=== PATIENT | male | born 1955 | race Caucasian/White ===

== ENCOUNTER 2016-03-11 21:56 | Inpatient (IN) | payer OTHER, MEDICARE ==
[~2016-03-11] VITALS: Ht 170.2 cm; Wt 75.0 kg
[~2016-03-11 21:56] MED LIST: LISI-357 PO; SERT100 PO
[2016-03-11 22:02] VITALS: BP 169/94; PULSE 104; RESP 22; TEMP 98.9; O2SAT 91
[2016-03-11] MEDS ORDERED: ASPIRIN 81 MG CHEW TAB PO ONE (22:15)
[2016-03-11] MEDS ORDERED: SODIUM CHLORIDE 0.9% FLUSH 5 ML FLUSH IVF PRN (22:15)
[2016-03-11] MEDS ORDERED: LISI-519 PO (22:16)
[2016-03-11] MEDS ORDERED: SERT-132 PO (22:16)
[2016-03-11] MEDS ORDERED: LOVA10TA PO (22:16)
[2016-03-11] MEDS ORDERED: VITA100021 SL (22:16)
[2016-03-11] MEDS ORDERED: ASPI81TA11 PO (22:16)
[2016-03-11] MEDS ORDERED: OMEP40CA2 PO (22:16)
[2016-03-11] MEDS ORDERED: TRAZ50TA12 PO (22:16)
--- NOTE | 2016-03-11 22:34 | PD ---
HPI Chief Complaint: Respiratory Symptoms Time Seen by Provider: 22:10 Travel History International Travel<30 days: No Contact w/Intl Traveler<30days: No Traveled to known affect area: No History of Present Illness HPI 60-year-old male with blindness, here for evaluation of cough, shortness of breath, chest discomfort, headache, generalized malaise. Symptoms of been going on for last 4 days. He states he has had persistent hiccups for the last 4 days as well as substernal chest pressure. He denies history of cardiac disease. Substernal chest pressure has been constant, no modifying factors. He has had a cough and is slightly short of breath. No history of DVT or PE. Today he has had several episodes of diarrhea. No abdominal pain or vomiting. PFSH Past Medical History Anxiety: Yes Depression: Yes Diminished Hearing: No GERD: Yes Hypertension: Yes Past Surgical History Cholecystectomy: Yes Social History Alcohol Use: Yes (EVERYOTHER DAY) Tobacco Use: Yes (02/25 PPD) Substance Use: No Allergies-Medications (Allergen,Severity, Reaction): Coded Allergies: Codeine (Verified Allergy, Severe, PASSES OUT, 03/11/16) Reported Meds & Prescriptions Reported Meds & Active Scripts Active Reported Vitamin B-12 (Cyanocobalamin) 1,000 Mcg Subl 1,000 Mcg SL DAILY Trazodone (Trazodone HCl) 50 Mg Tab 50 Mg PO BID Aspirin EC (Aspirin) 81 Mg Tabdr 81 Mg PO DAILY Omeprazole 40 Mg Cap 40 Mg PO DAILY Sertraline (Sertraline HCl) 50 Mg Tab 50 Mg PO DAILY Lisinopril 5 Mg Tab 5 Mg PO DAILY Lovastatin 10 Mg Tab 10 Mg PO DAILY Review of Systems Except as stated in HPI: all other systems reviewed are Neg Physical Exam Narrative GENERAL: Well-developed, well-nourished, comfortable, no acute distress. SKIN: Warm and dry. No rash. HEAD: Atraumatic. Normocephalic. EYES: No scleral icterus. No injection or drainage. ENT: Mucous membranes pink and moist. NECK: Trachea midline. No JVD. CARDIOVASCULAR: Tachycardic, rate 110, regular. RESPIRATORY: No accessory muscle use. Clear to auscultation. Breath sounds equal bilaterally. GASTROINTESTINAL: Abdomen soft, non-tender, nondistended. MUSCULOSKELETAL: No obvious deformities. No clubbing. No cyanosis. No edema. NEUROLOGICAL: Awake and alert. No obvious cranial nerve deficits. Motor grossly within normal limits. Normal speech. PSYCHIATRIC: Appropriate mood and affect; insight and judgment normal. Data Data Last Documented VS Vital Signs Date Time Temp Pulse Resp B/P Pulse Ox O2 Delivery O2 Flow Rate FiO2 03/11/16 23:58 104 20 144/83 96 Room Air 03/11/16 22:02 98.9 Orders Complete Blood Count With Diff (03/11/16 22:14) Comprehensive Metabolic Panel (03/11/16 22:14) B-Type Natriuretic Peptide (03/11/16 22:14) Act Partial Throm Time (Ptt) (03/11/16 22:14) Prothrombin Time / Inr (Pt) (03/11/16 22:14) Ckmb (Isoenzyme) Profile (03/11/16 22:14) Troponin I (03/11/16 22:14) Influenzae A/B Antigen (03/11/16 22:14) Blood Culture (03/11/16 22:14) Iv Access Insert/Monitor (03/11/16 22:14) Electrocardiogram (03/11/16 22:14) Ecg Monitoring (03/11/16 22:14) Oximetry (03/11/16 22:14) Oxygen Administration (03/11/16 22:14) Chest, Single Ap (03/11/16 22:14) Ct Pulmonary Angiogram (03/11/16 22:14) Sodium Chloride 0.9% Flush (Ns Flush) (03/11/16 22:15) Aspirin Chew (Aspirin Chew) (03/11/16 22:15) Chlorpromazine Inj (Thorazine Inj) (03/11/16 22:15) Lactic Acid (03/11/16 22:14) Iohexol 350 Inj (Omnipaque 350 Inj) (03/11/16 23:52) Sodium Chlor 0.9% 1000 Ml Inj (Ns 1000 M (03/12/16 00:15) Place In Observation (03/12/16 ) Vital Signs (Adult) Q4H (03/12/16 00:30) Activity Oob With Assistance (03/12/16 00:30) ^ Biopsychologist / Telemetry .CONTINUOUS (03/12/16 00:30) Diet Heart Healthy (1/17/17 Breakfast) Sodium Chloride 0.9% Flush (Ns Flush) (03/12/16 00:30) Sodium Chloride 0.9% Flush (Ns Flush) (03/12/16 09:00) Creatine Kinase (Cpk) (03/12/16 04:20) Creatine Kinase (Cpk) (03/12/16 10:20) Troponin I (03/12/16 04:20) Troponin I (03/12/16 10:20) Electrocardiogram (03/12/16 04:20) Electrocardiogram (03/12/16 10:20) Resp Oxygen Gadiel C Titrat 1-4 L (03/12/16 ) Pt Request For Service (03/12/16 00:30) Enoxaparin Inj (Lovenox Inj) (03/12/16 00:30) Naloxone Inj (Narcan Inj) (03/12/16 00:30) Enoxaparin Inj (Lovenox Inj) (03/12/16 09:00) Labs Laboratory Tests Test 03/11/16 22:20 White Blood Count 7.7 TH/MM3 Red Blood Count 4.82 MIL/MM3 Hemoglobin 16.4 GM/DL Hematocrit 46.6 % Mean Corpuscular Volume 96.8 FL Mean Corpuscular Hemoglobin 34.0 PG Mean Corpuscular Hemoglobin 35.1 % Concent Red Cell Distribution Width 13.7 % Platelet Count 122 TH/MM3 Mean Platelet Volume 9.4 FL Neutrophils (%) (Auto) 70.2 % Lymphocytes (%) (Auto) 12.1 % Monocytes (%) (Auto) 16.8 % Eosinophils (%) (Auto) 0.4 % Basophils (%) (Auto) 0.5 % Neutrophils # (Auto) 5.4 TH/MM3 Lymphocytes # (Auto) 0.9 TH/MM3 Monocytes # (Auto) 1.3 TH/MM3 Eosinophils # (Auto) 0.0 TH/MM3 Basophils # (Auto) 0.0 TH/MM3 CBC Comment DIFF FINAL Differential Comment Prothrombin Time 10.1 SEC Prothromb Time International 0.9 RATIO Ratio Activated Partial 30.1 SEC Thromboplast Time Sodium Level 131 MEQ/L Potassium Level 3.5 MEQ/L Chloride Level 90 MEQ/L Carbon Dioxide Level 32.1 MEQ/L Anion Gap 9 MEQ/L Blood Urea Nitrogen 12 MG/DL Creatinine 0.74 MG/DL Estimat Glomerular Filtration 107 ML/MIN Rate Random Glucose 94 MG/DL Lactic Acid Level 2.0 mmol/L Calcium Level 9.1 MG/DL Total Bilirubin 0.8 MG/DL Aspartate Amino Transf 95 U/L (AST/SGOT) Alanine Aminotransferase 58 U/L (ALT/SGPT) Alkaline Phosphatase 73 U/L Total Creatine Kinase 74 U/L Troponin I LESS THAN 0.02 NG/ML B-Type Natriuretic Peptide 9 PG/ML Total Protein 7.7 GM/DL Albumin 2.9 GM/DL [facility] Medical Decision Making Medical Screen Exam Complete: Yes Emergency Medical Condition: Yes Interpretation(s) EKG: Sinus, rate 99, normal axis, normal intervals, septal Q waves, no ischemic abnormality. Differential Diagnosis ACS, pneumothorax, pericarditis, PE, pneumonia, influenza, dehydration, viral illness Narrative Course Initial vital signs show heart rate 104, blood pressure 169/94, pulse ox 91% on room air, oral temp of 98.9F. CBC is unremarkable. CMP is remarkable for sodium 131, chloride 90, bicarbonate 32, otherwise unremarkable. Neck enzymes are negative. BNP is 9. Lactic acid is 2. Chest x-ray shows no acute disease. CT pulmonary angiogram: CONCLUSION: Diffuse symmetric fine interstitial lung disease of undetermined chronicity. Mild declan prominence. No evidence of pulmonary embolism. Hiccups initially resolved after the patient was given Thorazine, however returned. Patient was made aware of all findings. He is still complaining of some mild substernal chest discomfort. Even though it is reported that the patient had an O2 saturation of 96% on room air, this was actually on 2 L nasal cannula. His O2 saturation on room air is between 88 and 90%. He was made aware of all findings and states that he believes he was exposed to asbestos in the past and that is why his CT finding shows interstitial lung disease. 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 The patient will be admitted for further treatment and evaluation of chest pain. Case discussed with hospitalist Dr. Morales who will admit the patient to her service. Diagnosis Primary Impression: Chest pain Qualified Code: R07.9 - Chest pain, unspecified type Additional Impressions: Hypoxia Intractable singultus Admitting Information Admitting Physician Requests: Observation Rashad Vee MD Mar 11, 2016 22:34
--- NOTE | 2016-03-11 22:43 | RADRPT ---
EXAM DATE/TIME: 03/11/2016 22:34 [facility] COMPARISON: No previous studies available for comparison. INDICATIONS : Short of breath. MEDICAL HISTORY : None. SURGICAL HISTORY : None. ENCOUNTER: Initial ACUITY: 2 days PAIN SCORE: 0/10 LOCATION: Bilateral chest FINDINGS: A single view of the chest demonstrates the lungs to be symmetrically aerated without evidence of mas s, infiltrate or effusion. The cardiomediastinal contours are unremarkable. Osseous structures are intact. CONCLUSION: No acute cardiopulmonary disease demonstrated. Justo Morales MD on March 11, 2016 at 22:41 Board Certified Radiologist. This report was verified electronically.
[2016-03-11 22:53] VITALS: O2SAT 96
[2016-03-11 22:57] LABS: AUTOMATED NEUTROPHIL # 5.4 TH/MM3 (1.8-7.7); BASOPHIL % 0.5 % (0.0-2.0); EOSINOPHIL % 0.4 % (0.0-4.0); HEMATOCRIT 46.6 % (39.0-51.0); HEMO FLAGS DIFF FINAL; LYMPH % 12.1 % (9.0-44.0); LYMPHOCYTE # 0.9 TH/MM3 (1.0-4.8); MEAN CELL VOLUME 96.8 FL (80.0-100.0); MEAN CORPUSCULAR HGB CONC 35.1 % (32.0-36.0); MONO % 16.8 % (0.0-8.0); NEUT % 70.2 % (16.0-70.0); PLATELET COUNT 122 TH/MM3 (150-450); RED BLOOD COUNT 4.82 MIL/MM3 (4.50-5.90); RED CELL DISTRIBUTION WIDTH 13.7 % (11.6-17.2); WHITE BLOOD COUNT 7.7 TH/MM3 (4.0-11.0)
[2016-03-11 23:13] LABS: APTT (PATIENT) 30.1 SEC (24.3-30.1); INTERNATIONAL NORMALIZED RATIO 0.9 RATIO; PROTHROMBIN TIME - PATIENT 10.1 SEC (9.8-11.6)
[2016-03-11 23:18] LABS: ALT (GPT) 58 U/L (12-78); ANION GAP 9 MEQ/L (5-15); AST (GOT) 95 U/L (15-37); BICARBONATE 32.1 MEQ/L (21.0-32.0); BLOOD UREA NITROGEN 12 MG/DL (7-18); CHLORIDE 90 MEQ/L (98-107); GLOMERULAR FILTRATION RATE 107 ML/MIN (>89); POTASSIUM 3.5 MEQ/L (3.5-5.1); SODIUM (NA) 131 MEQ/L (136-145)
[2016-03-11 23:22] LABS: ALKALINE PHOSPHATASE 73 U/L (45-117); TOTAL BILIRUBIN ADULT 0.8 MG/DL (0.2-1.0)
[2016-03-11 23:24] LABS: CREATINE KINASE 74 U/L (39-308)
[2016-03-11] MEDS ORDERED: IOHEXOL 350 MG/ML 10 ML VIAL (for RAD DIAG) IV ONE (23:52)
[2016-03-11 23:58] VITALS: BP 144/83; PULSE 104; RESP 20; O2SAT 94; O2SAT 96
[2016-03-12] VITALS (10 sets, daily range): BP systolic 128–173; BP diastolic 77–97; PULSE 65–117; RESP 16–22; TEMP 97.2–99.4; O2SAT 92–96
--- NOTE | 2016-03-12 00:04 | RADRPT ---
EXAM DATE/TIME: 03/11/2016 23:41 [facility] COMPARISON: CHEST SINGLE AP, March 11, 2016, 22:34. INDICATIONS : Short of breath, hiccups and fatigue. IV CONTRAST: 66 cc Omnipaque 350 (iohexol) IV RADIATION DOSE: 12.83 CTDIvol (mGy) MEDICAL HISTORY : Hypertension. Gastroesophageal reflux disease. SURGICAL HISTORY : None. ENCOUNTER: Initial ACUITY: 1 day PAIN SCALE: 1/10 LOCATION: chest TECHNIQUE: Volumetric scanning of the chest was performed using a pulmonary embolism protocol MIP images were re constructed. Using automated exposure control and adjustment of the mA and/or kV according to patien t size, radiation dose was kept as low as reasonably achievable to obtain optimal diagnostic quality images. FINDINGS: PULMONARY ARTERIES: No filling defects are seen in the pulmonary arteries through the segmental level. LUNGS: There is subtle fairly widespread reticular nodular interstitial infiltrate. No evidence of alveolar consolidation in no suspicious nodules or masses. PLEURAE: There is no pleural thickening or pleural effusion. MEDIASTINUM: There is mild prominence of bilateral hilar lymph nodes and small central mediastinal nodes are visua lized. Coronary artery calcifications are present. MUSCULOSKELETAL: Within normal limits for patient age. MISCELLANEOUS: Prominent fatty infiltration of the liver. Smaller defect probably cysts arising from the apex of the right kidney. CONCLUSION: Diffuse symmetric fine interstitial lung disease of undetermined chronicity. Mild declan prominence. No evidence of pulmonary embolism. Justo William MD on March 11, 2016 at 23:58 Board Certified Radiologist. This report was verified electronically.
[2016-03-12] MEDS ORDERED: SODIUM CHLOR 0.9% 1000 ML INJ 1,000 ML IV ONE (00:15)
[2016-03-12] MEDS ORDERED: NALOXONE HCL 0.4 MG/ML AMP IV PRN (00:30)
[2016-03-12] MEDS ORDERED: ENOXAPARIN SODIUM 40 MG/0.4 ML SYRINGE SQ SCH ×2 (00:30→09:00)
[2016-03-12] MEDS ORDERED: SODIUM CHLORIDE 0.9% FLUSH 5 ML FLUSH FLUSH PRN (00:30)
--- NOTE | 2016-03-12 04:20 | HHI.HP ---
[facility] Non-Staff Admission Diagnosis chest pain, hypoxia, shortest of breath, singultus Diagnoses: Chief Complaint: Nausea, vomiting, fatigue, headache cups, chest pain Travel History International Travel<30 Days: No Contact w/Intl Traveler <30 Da: No Traveled to Known Affected Are: No History of Present Illness History from patient, ER physician communication, and review of medical records. Patient reported that on February 28, 2016, he did have deep cleaning of his teeth at the dentist office. He states that the day after this deep cleaning, he started having severe nausea and started vomiting every time he drinks or eats. He states he almost up to drink by the bathroom so that he can use the toilet bowl to vomit. Reports that his vomitus is yellowish in color. No blood. He also denies any blood in his stool. Denies diarrhea. Denies any abdominal pain. However reports that they have been so fatigued and worn out since that day. He just doesn't know why. Patient usually does not get sick easily. He states he is usually quite active. However this fatigue and weakness is wearing him down and he decided to come to hospital. He also reports of the past 2 days, he was starting to have these hiccups These hiccups are usually followed by this chest pains which is kind of poorly described. He states he almost had to do a lot of hiccups in order to burp. He isn't sure what starts first. Patient denies any prior history of valvular heart disease. Review of Systems Constitutional: COMPLAINS OF: Fatigue, DENIES: Diaphoretic episodes, Fever, Weight gain, Weight loss, Dizziness, Change in appetite Eyes: COMPLAINS OF: Vision loss (legally blind) Respiratory: COMPLAINS OF: Cough, DENIES: Apneas, Snoring, Wheezing, Hemoptysis, Sputum production, Shortness of breath Cardiovascular: COMPLAINS OF: Chest pain, Dyspnea on Exertion, Orthopnea, DENIES: Palpitations, Syncope, PND, Lower Extremity Edema Gastrointestinal: COMPLAINS OF: Nausea, Vomiting, DENIES: Abdominal pain, Black stools, Bloody stools, Constipation, Diarrhea, Difficulty Swallowing, Anorexia Genitourinary: DENIES: Urinary frequency, Urinary incontinence, Urgency, Hematuria, Dysuria, Nocturia Neurologic: DENIES: Abnormal gait, Headache, Localized weakness, Paresthesias, Seizures, Speech Problems, Tremor, Poor Balance Psychiatric: COMPLAINS OF: Anxiety, Depression Past Family Social History Past Medical History Hypertension Insomnia Anxiety COPD Past Surgical History Left wrist surgery Allergies: Coded Allergies: Codeine (Verified Allergy, Severe, PASSES OUT, 03/11/16) Family History Denies any family history of any medical conditions. Social History Smokes about half a pack a day. denies any alcohol abuse or drug abuse. However states that he does drink socially every few days or so. 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 Physical Exam Vital Signs Vital Signs Date Time Temp Pulse Resp B/P Pulse Ox O2 Delivery O2 Flow Rate FiO2 03/12/16 01:00 96 Nasal Cannula 2.00 03/12/16 01:00 102 16 141/77 94 Nasal Cannula 2 03/11/16 23:58 104 20 144/83 96 Nasal Cannula 2 03/11/16 22:53 96 Room Air 03/11/16 22:53 96 Room Air 03/11/16 22:08 103 22 92 Room Air 03/11/16 22:02 98.9 104 22 169/94 91 Physical Exam GENERAL: This is a well-nourished, well-developed patient, in no apparent distress. Does look quite concerned and fatigue from acute illness SKIN: No rashes, ecchymoses or lesions. Cool and dry. HEAD: Atraumatic. Normocephalic. No temporal or scalp tenderness. EYES: No scleral icterus. No injection or drainage. ENT: Nose without bleeding, purulent drainage or septal hematoma. Airway patent. NECK: Trachea midline. No JVD. Supple, nontender, no meningeal signs. CARDIOVASCULAR: Regular rate and rhythm without murmurs, gallops, or rubs. RESPIRATORY: Clear to auscultation. Breath sounds equal bilaterally. No wheezes , rales, or rhonchi. GASTROINTESTINAL: Abdomen soft, non-tender, nondistendedes. No guarding. MUSCULOSKELETAL: Extremities without clubbing, cyanosis, or edema. No calf tenderness. NEUROLOGICAL: Awake and alert. Motor and sensory grossly within normal limits. Normal speech. Laboratory Laboratory Tests Test 03/11/16 22:20 White Blood Count 7.7 Red Blood Count 4.82 Hemoglobin 16.4 Hematocrit 46.6 Mean Corpuscular Volume 96.8 Mean Corpuscular Hemoglobin 34.0 Mean Corpuscular Hemoglobin 35.1 Concent Red Cell Distribution Width 13.7 Platelet Count 122 Mean Platelet Volume 9.4 Neutrophils (%) (Auto) 70.2 Lymphocytes (%) (Auto) 12.1 Monocytes (%) (Auto) 16.8 Eosinophils (%) (Auto) 0.4 Basophils (%) (Auto) 0.5 Neutrophils # (Auto) 5.4 Lymphocytes # (Auto) 0.9 Monocytes # (Auto) 1.3 Eosinophils # (Auto) 0.0 Basophils # (Auto) 0.0 CBC Comment DIFF FINAL Differential Comment Prothrombin Time 10.1 Prothromb Time International 0.9 Ratio Activated Partial 30.1 Thromboplast Time Sodium Level 131 Potassium Level 3.5 Chloride Level 90 Carbon Dioxide Level 32.1 Anion Gap 9 Blood Urea Nitrogen 12 Creatinine 0.74 Estimat Glomerular Filtration 107 Rate Random Glucose 94 Lactic Acid Level 2.0 Calcium Level 9.1 Total Bilirubin 0.8 Aspartate Amino Transf 95 (AST/SGOT) Alanine Aminotransferase 58 (ALT/SGPT) Alkaline Phosphatase 73 Total Creatine Kinase 74 Troponin I LESS THAN 0.02 B-Type Natriuretic Peptide 9 Total Protein 7.7 Albumin 2.9 Date/Time Procedure Status Source Growth 03/11/16 22:26 Influenza Types A,B Antigen ([facility]) - Final Complete Nasal Washing NEGATIVE FOR FLU A AND B ANTIGEN.... 03/11/16 22:25 Aerobic Blood Culture Received Blood Peripheral Pending 03/11/16 22:25 Anaerobic Blood Culture Received Blood Peripheral Pending Result Diagram: 03/11/16221903/11/162219 Imaging Last 48 hours Impressions Chest X-Ray 03/11/162213 Signed Impressions: Service Date/Time: Friday, March 11, 2016 22:34 - CONCLUSION: No acute cardiopulmonary disease demonstrated. Justo Morales MD CT Angiography 03/11/162213 Signed Impressions: Service Date/Time: Friday, March 11, 2016 23:41 - CONCLUSION: Diffuse symmetric fine interstitial lung disease of undetermined chronicity. Mild declan prominence. No evidence of pulmonary embolism. Justo William MD Assessment and Plan Problem List: (1) Hypoxia ICD Code: R09.02 Status: Acute (2) Chest pain ICD Code: R07.9 Status: Acute (3) Nausea & vomiting ICD Code: R11.2 Status: Acute (4) Fatigue ICD Code: R53.83 Status: Acute Assessment and Plan Impression: Nausea/vomiting/fatigue/chest pain/hiccupsetiology unclear. However given that all this started post dental procedure, we'll need to rule out endocarditis. 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 CT chest revealing pulmonary fibrosis. Thrombocytopenia Plan: We'll follow the patient's blood culture results. We'll follow patient clinically. Echocardiogram to rule out vegetations. Monitor for fevers. We'll obtain serial cardiac enzymes and EKGs to rule out ACS. Symptomatic treatment for hiccups. Patient was not intubated for dental procedure. It was mainly deep cleaning. CT chest did not reveal any diaphragmatic paralysis. Oxygen supplementation. We'll follow platelet counts closely. Resume home medications. DVT prophylaxiswith Lovenox. GI prophylaxis on pantoprazole. Discussed Condition With Patient, ER physician, patient's nurse Physician Certification 2 Midnight Certification Type: Admission for Inpatient Services Order for Inpatient Services The services are ordered in accordance with Medicare regulations or non- Medicare payer requirements, as applicable. In the case of services not specified as inpatient-only, they are appropriately provided as inpatient services in accordance with the 2-midnight benchmark. Estimated LOS (days): 2 days is the estimated time the patient will need to remain in the hospital, assuming treatment plan goals are met and no additional complications. Post-Hospital Plan: Home Problem Qualifiers (1) Chest pain: Qualified Code: R07.9 - Chest pain, unspecified type Ghislaine Morales MD Mar 12, 2016 04:20
[2016-03-12 05:18] LABS: CREATINE KINASE 312 U/L (39-308)
[2016-03-12 05:36] LABS: CKMB LESS THAN 0.5 NG/ML (0.5-3.6)
[2016-03-12] MEDS ORDERED: LISINOPRIL 5 MG TAB PO SCH (09:00)
[2016-03-12] MEDS: SERTRALINE HCL 50 MG TAB PO SCH (09:12)
[2016-03-12] MEDS: ASPIRIN EC 81 MG TABEC PO SCH (09:12)
[2016-03-12] MEDS: PANTOPRAZOLE SOD 40 MG DELAYED RELEASE TAB PO SCH (09:12)
[2016-03-12] MEDS: PRAVASTATIN SOD 10 MG TAB PO SCH (09:13)
[2016-03-12] MEDS: SODIUM CHLORIDE 0.9% FLUSH 5 ML FLUSH FLUSH SCH ×2 (09:13→21:29)
[2016-03-12] MEDS: traZODone HCL 50 MG TAB PO SCH ×2 (09:13→21:30)
[2016-03-12] MEDS ORDERED: methylPREDNISolone SOD SUCC 125 MG/2 ML VIAL IV PUSH ONE (10:15)
[2016-03-12 10:57] LABS: BICARBONATE 29.9 MEQ/L (21.0-32.0); POTASSIUM 3.6 MEQ/L (3.5-5.1)
[2016-03-12 11:06] LABS: CREATINE KINASE 482 U/L (39-308)
[2016-03-12 11:18] LABS: CKMB 0.5 NG/ML (0.5-3.6)
--- NOTE | 2016-03-12 11:18 | HHI.PR ---
Subjective Remarks Follow-up for shortness of breath. The patient reports decreased energy. He states it is been feeling poorly for the past 2 weeks. He states that the day after going to the dentist 2 weeks ago he developed shortness of breath which is been persistent for 2 weeks. He's also been having nausea and vomiting for about 2 weeks, that improved to about 2 days ago. He's been having loose stools for the past 2 months. He denies any chest pain currently. He states that with the vomiting he was having hiccups and the discomfort has chest was always secondary to the hiccups. He describes his chest pain has a lower sternal soreness. He's been having some pain in his throat, but denies any swallowing difficulties. He does feel a little dizzy. He does have 2 or 3 beers 2 or 3 times a week. He states that he has smoked "forever". Objective Vitals Vital Signs Date Time Temp Pulse Resp B/P Pulse Ox O2 Delivery O2 Flow Rate FiO2 03/12/16 09:30 111 03/12/16 08:47 99.4 117 22 150/97 92 03/12/16 05:09 116 03/12/16 05:05 97.8 112 20 166/93 94 03/12/16 01:00 96 Nasal Cannula 2.00 03/12/16 01:00 102 16 141/77 94 Nasal Cannula 2 03/11/16 23:58 104 20 144/83 96 Nasal Cannula 2 03/11/16 22:53 96 Room Air 03/11/16 22:53 96 Room Air 03/11/16 22:08 103 22 92 Room Air 03/11/16 22:02 98.9 104 22 169/94 91 Result Diagram: 03/11/16 22203/12/16 1030 Imaging Last Impressions Chest X-Ray 03/11/162213 Signed Impressions: Service Date/Time: Friday, March 11, 2016 22:34 - CONCLUSION: No acute cardiopulmonary disease demonstrated. Justo Morales MD CT Angiography 03/11/162213 Signed Impressions: Service Date/Time: Friday, March 11, 2016 23:41 - CONCLUSION: Diffuse symmetric fine interstitial lung disease of undetermined chronicity. Mild declan prominence. No evidence of pulmonary embolism. Justo William MD Objective Remarks GENERAL: Well-developed well-nourished. In no acute distress. SKIN: Warm and dry. No lesions noted. HEENT: Normocephalic. Pupils equal and round. Mucous membranes pink and moist. CARDIOVASCULAR: Regular rate and rhythm. No murmur appreciated. RESPIRATORY: No accessory muscle use. Clear to auscultation. Breath sounds equal bilaterally. GASTROINTESTINAL: Abdomen soft, non-tender, nondistended. Bowel sounds x4. MUSCULOSKELETAL: No obvious deformities. No clubbing or cyanosis. No edema. NEUROLOGICAL: Awake and alert. No focal neurological deficits. Moves upper and lower extremities spontaneously. Normal speech. PSYCHIATRIC: Appropriate mood and affect; insight and judgment normal. A/P Problem List: (1) Hypoxia ICD Code: R09.02 Status: Acute (2) Chest pain ICD Code: R07.9 Status: Resolved (3) Nausea & vomiting ICD Code: R11.2 Status: Resolved (4) Fatigue ICD Code: R53.83 Status: Resolved Assessment and Plan 60-year-old male with past medical history of HTN, depression, anxiety, GERD who presented with shortness of breath Shortness of breath with hypoxia: Pulmonary angiogram negative for PE, but showed possible interstitial lung disease; question of pneumonitis secondary to aspiration from vomiting. Afebrile with no leukocytosis. IV steroids. DuoNeb scheduled. Pulmonology consulted. Echocardiogram ordered. Atypical chest pain: Related to hiccups. ACS ruled out per protocol with troponin negative 3 and EKG with no acute changes, nonspecific ST changes in V2 and V3. Patient reports significant nose bleeding on aspirin in the past. Continue statin. Nausea/vomiting/diarrhea: Over the past 2 weeks, resolved recently. Checked lipase, within normal limits. Supportive care. Continue PPI. Hypertension: Chronic, stable. Continue lisinopril. DVT prophylaxis: SCDs. DC Lovenox with history of severe nose bleeds. Written by Edmar Bowie, acting as scribe for Dr. Marin on 03/12/16 at 11:18. Discharge Planning Disposition pending clinical course. Attending Statement The documentation accurately reflects the work performed [id number] by me, Dr. Marin on 03/12/16 at 11:18. Problem Qualifiers (1) Chest pain: Qualified Code: R07.9 - Chest pain, unspecified type Edmar Bowie Mar 12, 2016 11:18 Carlos Marin MD Mar 21, 2016 07:32
--- NOTE | 2016-03-12 14:00 | EKG ---
Date Performed: 03/11/2016 Time Performed: 22:38:13 PTAGE: 60 years EKG: Sinus rhythm POSSIBLE SEPTAL MYOCARDIAL INFARCTION, AGE UNDETERMINED CANNOT EXCLUDE ACUTE ABNORMAL ECG NO PREVIOUS TRACING DOCTOR: Boni Stein Interpretating Date/Time 03/12/2016 13:58:52
--- NOTE | 2016-03-12 14:00 | EKG ---
Date Performed: 03/12/2016 Time Performed: 05:11:58 PTAGE: 60 years EKG: SINUS TACHYCARDIA SEPTAL MYOCARDIAL INFARCTION Compared to previous tracing, the anterosept al ST elevation not as prominant. Clinical correlation recommended. ABNORMAL ECG PREVIOUS TRACING : 03/11/2016 22.38 DOCTOR: Boni Stein Interpretating Date/Time 03/12/2016 13:59:25
[2016-03-12] MEDS: methylPREDNISolone SOD SUCC 40 MG/1 ML VIAL IV PUSH SCH ×2 (14:12→21:30)
[2016-03-12] MEDS: RESP: ALBUTEROL 2.5 MG/IPRATROPIUM 0.5 MG NEB (SCH) NEB ×2 (16:04→20:00)
--- NOTE | 2016-03-12 19:02 | EC ---
Study Study Date:03/12/2016 STUDY CONCLUSIONS SUMMARY LEFT VENTRICLE: The cavity size was normal. Wall thickness was normal. Systolic function was normal. The estimated ejection fraction was in the range of 50% to 55%. Wall motion was normal; there were no regional wall motion abnormalities. Recommendations: Transesophageal echocardiography should be performed in order to exclude vegetation. If LV function is below 40, please consider prescribing an ACEI or ARB or document rationale for non-use. PROCEDURE DATA STUDY STATUS: Elective. Procedure: Transthoracic echocardiography. Image quality was good. Scanning was performed from the parasternal, apical, and subcostal acoustic windows. Study completion: The patient tolerated the procedure well. Transthoracic echocardiography. M-mode, complete 2D, complete spectral Doppler, and color Doppler. Patient status: Inpatient. CARDIAC ANATOMY LEFT VENTRICLE: The cavity size was normal. Wall thickness was normal. Systolic function was normal. The estimated ejection fraction was in the range of 50% to 55%. Wall motion was normal; there were no regional wall motion abnormalities. AORTIC VALVE: Trileaflet; normal thickness leaflets. Doppler: Transvalvular velocity was within the normal range. There was no stenosis. No regurgitation. AORTA: Aortic root: The aortic root was normal in size. MITRAL VALVE: Structurally normal valve. Doppler: Transvalvular velocity was within the normal range. There was no evidence for stenosis. Trace regurgitation. Peak gradient: 4mm Hg (D). LEFT ATRIUM: The atrium was normal in size. RIGHT VENTRICLE: The cavity size was normal. Wall thickness was normal. PULMONIC VALVE: Doppler: Transvalvular velocity was within the normal range. There was no evidence for stenosis. No regurgitation. TRICUSPID VALVE: Structurally normal valve. Doppler: Transvalvular velocity was within the normal range. Trace regurgitation. PULMONARY ARTERY: The main pulmonary artery was normal-sized. Systolic pressure was within the normal range. RIGHT ATRIUM: The atrium was normal in size. PERICARDIUM: There was no pericardial effusion. SYSTEMIC VEINS: Inferior vena cava: The vessel was normal in size. BASIC MEASUREMENTS ADULT Normal Left ventricle LV internal dimension, ED, chordal level, *37.9 mm 43-52 PLAX LV posterior wall thickness, ED 8.1 mm IVS/LVPW ratio, ED 1.17 <1.3 Ventricular septum Septal thickness, ED 9.45 mm Aortic valve Leaflet separation 20 mm 15-26 Left atrium Anterior-posterior dimension 34 mm Right ventricle RV internal dimension, ED, PLAX 20.1 mm 19-38 BASIC MEASUREMENTS ADULT Normal Aortic valve Leaflet separation 20 mm 15-26 Aorta Root diameter, ED 33 mm 20-37 DOPPLER MEASUREMENTS ADULT Normal Main pulmonary artery Pressure, S 19 mm Hg =30 Mitral valve Peak E-wave velocity 99.7 cm/s Peak A-wave velocity 86.9 cm/s Peak gradient, D 4 mm Hg Peak E/A ratio 1.1 Tricuspid valve Regurgitant peak velocity 151 cm/s Peak RV-RA gradient, S 9 mm Hg Maximal regurgitant velocity 151 cm/s Systemic veins Estimated CVP 10 mm Hg Right ventricle RV pressure, S 19 mm Hg <30 LEGEND: Mean values are shown as u=mean value. Asterisk (*) bowden values outside specified normal range. Amended Rudolph Sanderson [id number]
[2016-03-12 19:04] LABS: BLOOD GAS BASE EXCESS 4.5 mmol/L (-2-2); BLOOD GAS CARBOXYHEMOGLOBIN 2.2 % (0-4); BLOOD GAS HCO3 28 mmol/L (22-26); BLOOD GAS METHEMOGLOBIN 1.8 % (0-2); BLOOD GAS O2 HGB SATURATION 90 % (90-100); BLOOD GAS OXYGEN CONTENT 19.9 Vol % (12.0-20.0); BLOOD GAS PCO2 34 mmHg (38-42); BLOOD GAS PO2 65 mmHG (61-120); BLOOD GAS TOTAL HGB 15.7 G/DL (12.0-16.0); TEMP CORR TO 98.6
[2016-03-12 19:05] LABS: DRAW SITE RT RADIAL; NUMBER OF ARTERIAL PUNCTURES 1; OXYGEN DEVICE RA; STAT NO; ULNAR PULSE Y
--- NOTE | 2016-03-12 19:39 | MB ---
cc: SHAUNA VILLATORO M.D. DATE OF CONSULTATION 03/12/2016 REASON FOR CONSULTATION Pulmonary fibrosis. HISTORY OF PRESENT ILLNESS Mr. 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 He as well smokes one-half to one pack of cigarettes a day almost his entire adult life up until the time of his hospitalization. However, he denies shortness of breath, fever, chills, cough, expectoration or hemoptysis. He was admitted with nausea, vomiting which had subsided, general weakness, fatigue as well as hiccups which as well have resolved. PAST MEDICAL HISTORY Is that of: 1. Hypertension. 2. COPD. 3. Anxiety. 4. Chronic insomnia. 5. Chronic pulmonary fibrosis as mentioned above. 6. As well as previous left wrist surgery. ALLERGIES CODEINE. FAMILY HISTORY Noncontributory. REVIEW OF SYSTEMS A 12-point review of systems as per HPI and past history otherwise negative. SOCIAL HISTORY Smoked up until the time of hospitalization as mentioned above, presently one-half pack a day. Does not drink any alcohol. Does not use drugs. PHYSICAL EXAMINATION GENERAL: The patient is alert. VITAL SIGNS: Oxygen saturation 92-96% on room air. Temperature 98.9, pulse 90, respiratory rate 18. Blood pressure 140/80. HEENT: Unremarkable. Eyes without icterus. NECK: Without adenopathy or thyroid enlargement. Central trachea. CHEST: Without dullness to percussion. A few rhonchi on auscultation, decreased with cough. CARDIAC: Point of maximal impulse distant. S1, S2 audible. No murmur, no rub. ABDOMEN: Lax. Audible bowel sounds. EXTREMITIES: No clubbing, cyanosis or edema. IMPRESSION 1. Pulmonary fibrosis, probably chronic. 2. Probable COPD. 3. Nausea, vomiting, hiccups resolved. 4. Tobacco abuse. 5. Hypertension. 6. Anxiety. PLAN The patient has no shortness of breath. His pulmonary fibrosis seems to be chronic, no therapy for same is indicated at this time, however pulmonary function evaluation would be appropriate. The patient's CT scan is without mass or infiltrate. Fibrotic changes noted throughout both lungs. No adenopathy is identified either. 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 From a pulmonary standpoint the patient does not need to be in the hospital. Further evaluation or workup may be done as an outpatient especially he is asymptomatic pulmonary forte. Baseline collagen vascular studies, pulmonary function, arterial blood gas ordered. We will follow his course along with you in the hospital as well as an outpatient. I do thank you for asking me to partake in Mr. Ok brown. Shauna Villatoro MD WWW/BELIA /6:26 PM /7:22 PM
[2016-03-12 21:11] LABS: RHEUMATOID FACTOR TRIGGER LESS THAN 10.0 IU/ML (0.0-14.9)
[2016-03-13 04:10] VITALS: BP 139/92; PULSE 82; RESP 20; TEMP 97.8; O2SAT 93
[2016-03-13] MEDS: methylPREDNISolone SOD SUCC 40 MG/1 ML VIAL IV PUSH SCH (05:34)
[2016-03-13 06:40] LABS: ALKALINE PHOSPHATASE 61 U/L (45-117); ALT (GPT) 40 U/L (12-78); ANION GAP 11 MEQ/L (5-15); AST (GOT) 52 U/L (15-37); BICARBONATE 27.8 MEQ/L (21.0-32.0); BLOOD UREA NITROGEN 10 MG/DL (7-18); CHLORIDE 97 MEQ/L (98-107); GLOMERULAR FILTRATION RATE 90 ML/MIN (>89); POTASSIUM 3.2 MEQ/L (3.5-5.1); SODIUM (NA) 136 MEQ/L (136-145); TOTAL BILIRUBIN ADULT 0.7 MG/DL (0.2-1.0)
[2016-03-13] MEDS: RESP: ALBUTEROL 2.5 MG/IPRATROPIUM 0.5 MG NEB (SCH) NEB ×2 (07:46→13:45)
[2016-03-13] MEDS ORDERED: POTASSIUM CHLORIDE 20 MEQ CONTROLLED RELEASE TAB PO ONE (08:00)
[2016-03-13 08:11] VITALS: BP 158/103; PULSE 105; RESP 18; TEMP 98.6; O2SAT 93
--- NOTE | 2016-03-13 08:15 | HHI.PR ---
Subjective Remarks Follow-up for shortness of breath. The patient denies any shortness of breath. Continues to have chronic dry cough, unchanged. He denies any vomiting or diarrhea, eating well. He would like to go home. Reports he's been ambulating well here. He would like to continue trying the home exercises the physical therapist gave him. He is apprehensive about [facility], would prefer outpatient PT, plans to follow up with PCP. Objective Vitals Vital Signs Date Time Temp Pulse Resp B/P Pulse Ox O2 Delivery O2 Flow Rate FiO2 03/13/16 04:10 97.8 82 20 139/92 93 03/12/16 23:56 97.6 65 20 165/90 96 03/12/16 19:51 85 03/12/16 19:28 97.2 93 20 128/81 94 03/12/16 16:00 97.2 90 18 173/85 93 03/12/16 12:00 97.5 94 18 153/96 92 03/12/16 09:30 111 03/12/16 08:47 99.4 117 22 150/97 92 I/O 03/12/16 03/12/16 03/12/16 03/13/16 03/13/16 03/13/16 07:00 15:00 23:00 07:00 15:00 23:00 Intake Total 720 ml Balance 720 ml Intake Oral 720 ml # Voids 3 1 Result Diagram: 03/11/16221903/13/16 0543 Imaging Last Impressions Chest X-Ray 03/11/162213 Signed Impressions: Service Date/Time: Friday, March 11, 2016 22:34 - CONCLUSION: No acute cardiopulmonary disease demonstrated. Justo Morales MD CT Angiography 03/11/162213 Signed Impressions: Service Date/Time: Friday, March 11, 2016 23:41 - CONCLUSION: Diffuse symmetric fine interstitial lung disease of undetermined chronicity. Mild declan prominence. No evidence of pulmonary embolism. Justo William MD Objective Remarks GENERAL: Well-developed well-nourished. In no acute distress. SKIN: Warm and dry. No lesions noted. HEENT: Normocephalic. Pupils equal and round. Mucous membranes pink and moist. CARDIOVASCULAR: Regular rate and rhythm. No murmur appreciated. RESPIRATORY: No accessory muscle use. Clear to auscultation. Breath sounds equal bilaterally. GASTROINTESTINAL: Abdomen soft, non-tender, nondistended. Bowel sounds x4. MUSCULOSKELETAL: No obvious deformities. No clubbing or cyanosis. No edema. NEUROLOGICAL: Awake and alert. No focal neurological deficits. Moves upper and lower extremities spontaneously. Normal speech. PSYCHIATRIC: Appropriate mood and affect; insight and judgment normal. A/P Problem List: (1) Hypoxia ICD Code: R09.02 Status: Acute (2) Chest pain ICD Code: R07.9 Status: Resolved (3) Nausea & vomiting ICD Code: R11.2 Status: Resolved (4) Fatigue ICD Code: R53.83 Status: Resolved Assessment and Plan 60-year-old male with past medical history of HTN, depression, anxiety, GERD who presented with shortness of breath Shortness of breath with hypoxia: Pulmonary angiogram negative for PE, but showed possible interstitial lung disease; question of pneumonitis secondary to aspiration from vomiting. Afebrile with no leukocytosis. IV steroids, transition to oral. DuoNebs. Echocardiogram with normal systolic function. Pulmonology consulted, cleared for outpatient follow-up. ABG reviewed, check walk test. Atypical chest pain: Related to hiccups. ACS ruled out per protocol with troponin negative 3 and EKG with no acute changes, nonspecific ST changes in V2 and V3. Patient reports significant nose bleeding on aspirin in the past. Continue statin. Nausea/vomiting/diarrhea: Over the past 2 weeks, resolved prior to admission. Checked lipase, within normal limits. Supportive care. Continue PPI. Hypertension: Not optimally controlled. Increase home lisinopril. DVT prophylaxis: SCDs. Avoid chemoprophylaxis with history of severe nose bleeds. Discharge Planning Follow-up results of walk test, but if patient remains stable, likely discharge later today. Case management to assist with arranging C vs referral to outpatient PT. Discussed with Dr. Marin. Attending Statement The exam, history, and the medical decision-making described in the above note were completed with the assistance of the mid-level provider. I reviewed and agree with the findings presented. I attest that I had a [id number] encounter with the patient on the same day, and personally performed and documented my assessment and findings in the medical record. Problem Qualifiers (1) Chest pain: Qualified Code: R07.9 - Chest pain, unspecified type Edmar Bowie Mar 13, 2016 08:15 Carlos Marin MD Apr 01, 2016 03:12
[2016-03-13] MEDS ORDERED: predniSONE 20 MG TAB PO SCH (09:00)
[2016-03-13] MEDS: traZODone HCL 50 MG TAB PO SCH (09:00)
[2016-03-13] MEDS: PRAVASTATIN SOD 10 MG TAB PO SCH (10:20)
[2016-03-13] MEDS: ASPIRIN EC 81 MG TABEC PO SCH (10:20)
[2016-03-13] MEDS: SERTRALINE HCL 50 MG TAB PO SCH (10:21)
[2016-03-13] MEDS: PANTOPRAZOLE SOD 40 MG DELAYED RELEASE TAB PO SCH (10:25)
[2016-03-13] MEDS: SODIUM CHLORIDE 0.9% FLUSH 5 ML FLUSH FLUSH SCH (10:27)
[2016-03-13] MEDS ORDERED: LISINOPRIL 5 MG TAB PO ONE (10:30)
[2016-03-13 11:53] VITALS: BP 143/93; PULSE 81; RESP 18; TEMP 97.6; O2SAT 93
[2016-03-13] MEDS ORDERED: ALBUAER3 INH (12:20)
[2016-03-13] MEDS ORDERED: PRED5PAK PO (12:20)
[2016-03-13] MEDS ORDERED: LISI10TA3 PO (12:20)
--- NOTE | 2016-03-13 20:52 | EKG ---
Date Performed: 03/12/2016 Time Performed: 10:52:56 PTAGE: 60 years EKG: SINUS TACHYCARDIA SEPTAL Q WAVES ABNORMAL ECG PREVIOUS TRACING : 03/12/2016 05.11 Compared to prior tracing no significant change DOCTOR: Mady Bustos Interpretating Date/Time 03/13/2016 20:51:09
[2016-03-14] MEDS ORDERED: LISINOPRIL 10 MG TAB PO SCH (09:00)
[2016-03-19 10:36] LABS: CRITICAL VALUE YES
== END 2016-03-13 13:55 | disposition home or self-care (01) | DRG 204 ==
LOC: NEPA 21:56 → OBSVTOIN 03-12 00:38 → NEDA 03-12 00:38 → NEPHCDU 03-12 03:43
PROVIDERS: ADMIT Internal Medicine; ATTEND Internal Medicine
DX: R06.6 Hiccough (principal); D69.6 Thrombocytopenia, unspecified; J84.10 Pulmonary fibrosis, unspecified; R07.89 Other chest pain; J44.9 Chronic obstructive pulmonary disease, unspecified; I10 Essential (primary) hypertension; R09.02 Hypoxemia; K21.9 Gastro-esophageal reflux disease without esophagitis; R11.2 Nausea with vomiting, unspecified; F51.04 Psychophysiologic insomnia; H54.0 Blindness, both eyes; F41.9 Anxiety disorder, unspecified; F17.210 Nicotine dependence, cigarettes, uncomplicated; F32.9 Major depressive disorder, single episode, unspecified; Z88.5 Allergy status to narcotic agent
CPT/HCPCS: 36600; 71010; 71275; 80048; 80053; 82550; 82552; 82805; 83605; 83690; 83735; 83880; 84484; 85025; 85610; 85652; 85730; 86038; 86160; 86430; 87040; 87804; 93005; 93306; 94620; 94640; 96372; J1650; J2920; J2930; J3230; J7030; J7512; Q9967

== ENCOUNTER 2016-07-07 15:21 | Emergency (ER) | payer OTHER, MEDICARE ==
[~2016-07-07] VITALS: Ht 167.6 cm; Wt 82.2 kg
[~2016-07-07 15:21] MED LIST changes: +ALBUAER3 INH; +ASPI81TA11 PO; -LISI-357 PO; +LISI10TA3 PO; +LOVA10TA PO; +OMEP40CA2 PO; +PRED5PAK PO; +SERT-132 PO; -SERT100 PO; +TRAZ50TA12 PO; +VITA100021 SL
[2016-07-07 15:24] VITALS: BP 152/90; PULSE 83; RESP 16; TEMP 98.2; O2SAT 95
--- NOTE | 2016-07-07 15:39 | PD ---
HPI Chief Complaint: Laceration/Skin Injury Time Seen by Provider: 15:33 Travel History International Travel<30 days: No Contact w/Intl Traveler<30days: No Traveled to known affect area: No History of Present Illness HPI 60-year-old legally blind male presents the emergency department with laceration to the anterior left forehead. Patient states he was at home and "walked into a door". Patient brought himself here with a taxi. Patient denies any pain. Patient denies loss of consciousness. Patient states tetanus is less than 5 years. Patient has no other complaints. He is allergic to codeine. PFS Past Medical History Anxiety: Yes Depression: Yes Cardiovascular Problems: Yes (HTN) Diminished Hearing: No GERD: Yes Hypertension: Yes Past Surgical History Cholecystectomy: Yes Social History Alcohol Use: Yes (EVERYOTHER DAY) Tobacco Use: Yes (1/2 PPD) Substance Use: No Allergies-Medications (Allergen,Severity, Reaction): Coded Allergies: Codeine (Verified Allergy, Severe, PASSES OUT, 07/07/16) Reported Meds & Prescriptions Reported Meds & Active Scripts Active Proair Hfa 8.5 GM Inh (Albuterol Sulfate) 90 Mcg/Act Aer 2 Puff INH Q4-6H PRN 108 mcg/actuation Lisinopril 10 Mg Tab 10 Mg PO DAILY Reported Trazodone (Trazodone HCl) 50 Mg Tab 50 Mg PO BID Aspirin EC (Aspirin) 81 Mg Tabdr 81 Mg PO DAILY Omeprazole 40 Mg Cap 40 Mg PO DAILY Sertraline (Sertraline HCl) 50 Mg Tab 50 Mg PO DAILY Lovastatin 10 Mg Tab 10 Mg PO DAILY Review of Systems Except as stated in HPI: all other systems reviewed are Neg General / Constitutional: No: Fever Eyes: No: Visual changes HENT: No: Headaches Cardiovascular: No: Chest Pain or Discomfort Respiratory: No: Shortness of Breath Gastrointestinal: No: Abdominal Pain Genitourinary: No: Dysuria Musculoskeletal: No: Pain Skin: No Rash Neurologic: No: Weakness Psychiatric: No: Depression Endocrine: No: Polydipsia Hematologic/Lymphatic: No: Easy Bruising Physical Exam Narrative GENERAL: Patient appears in no acute distress. Patient appears somewhat intoxicated. SKIN: Warm and dry. Patient has 4 cm jagged partial-thickness laceration to the left anterior upper forehead. Bleeding is currently controlled. No other significant findings are noted. HEAD: Atraumatic. Normocephalic. Nontender around site. EYES: Pupils equal and round. No scleral icterus. No injection or drainage. ENT: No nasal bleeding or discharge. Mucous membranes pink and moist. Pharynx is clear. NECK: Trachea midline. Supple and nontender. CARDIOVASCULAR: Regular rate and rhythm. RESPIRATORY: No accessory muscle use. Diffuse wheezes to auscultation. Breath sounds equal bilaterally. GASTROINTESTINAL: Abdomen soft, non-tender, nondistended. Hepatic and splenic margins not palpable. MUSCULOSKELETAL: Extremities without clubbing, cyanosis, or edema. No obvious deformities. NEUROLOGICAL: Awake and alert. No obvious cranial nerve deficits. Motor grossly within normal limits. Five out of 5 muscle strength in the arms and legs. Normal speech. PSYCHIATRIC: Appropriate mood and affect; insight and judgment normal. Data Data Last Documented VS Vital Signs Date Time Temp Pulse Resp B/P Pulse Ox O2 Delivery O2 Flow Rate FiO2 07/07/16 15:24 98.2 83 16 152/90 95 Orders Lidocai-Epi 1%-1:100,000 Inj (Xylocaine- (07/07/16 15:45) MDM Medical Decision Making Medical Screen Exam Complete: Yes Emergency Medical Condition: Yes Differential Diagnosis Head contusion. Scalp laceration. Need for sutures. Narrative Course Patient appears in no acute distress. Laceration is repaired. See procedure note. Laceration should be kept clean and dry. [place] should remain in place for 1 week. Patient to return in one week for staple removal or sooner as needed. Procedures Procedure Narrative LACERATION LOCATION: Left upper anterior forehead LENGTH: 4 cm NUMBER OF STITCHES/KATHIA: 17 Kathia REPAIR: The area of the laceration was prepped with Betadine and sterilely draped. The laceration was infiltrated with 3 mL is 1% lidocaine with epi.. The wound was copiously irrigated and explored without evidence of foreign body , tendon injury or neurovascular injury. The wound was closed using kathia. This was a single layer repair. A sterile dressing was applied. The patient was advised to keep the dressing clean and dry. Patient tolerated the procedure well. Diagnosis Primary Impression: Laceration of scalp without complication Qualified Code: S01.01XA - Laceration of scalp without complication, initial encounter Referrals: Primary Care Physician Patient Instructions: Facial Laceration (ED), General Instructions Med/Other Pt SpecificInfo: No Meds Exist/No RX given, Wound Care Disposition: 01 DISCHARGE HOME Condition: Stable Mauri Nixon July 07, 2016 15:39
[2016-07-07] MEDS ORDERED: LIDOCAINE 1%/EPINEPHrine 1:100,000 SOLN 20 ML VIAL INFIL ONE (15:45)
== END 2016-07-07 16:13 | disposition home or self-care (01) ==
LOC: PHEFT 15:21
DX: S01.81XA Laceration without foreign body of other part of head, initial encounter (principal); I10 Essential (primary) hypertension; H54.8 Legal blindness, as defined in USA; F17.200 Nicotine dependence, unspecified, uncomplicated; Z86.59 Personal history of other mental and behavioral disorders; Z86.79 Personal history of other diseases of the circulatory system; Z87.19 Personal history of other diseases of the digestive system; W22.01XA Walked into wall, initial encounter
CPT/HCPCS: 12013

== ENCOUNTER 2016-10-28 19:36 | Emergency (ER) | payer OTHER, MEDICARE ==
[~2016-10-28] VITALS: Ht 167.6 cm; Wt 82.0 kg
[~2016-10-28 19:36] MED LIST changes: -PRED5PAK PO; -VITA100021 SL
[2016-10-28 19:40] VITALS: BP 130/83; PULSE 76; RESP 20; TEMP 98.6; O2SAT 93
[2016-10-28] MEDS ORDERED: LIDOCAINE HCL 1% 50 ML VIAL INFIL ONE (20:00)
[2016-10-28] MEDS ORDERED: TETANUS/DIPHTHERIA TOXOID ADULT 0.5 ML VIAL IM ONE (20:00)
--- NOTE | 2016-10-28 20:39 | PD ---
HPI Chief Complaint: Injury Time Seen by Provider: 20:11 Travel History International Travel<30 days: No Contact w/Intl Traveler<30days: No Traveled to known affect area: No History of Present Illness HPI while drinking at home (pt is also legally blind) hit textured wall by mistake and felt blood on his left elbow, didn't seem to stop so he came to er to be seen and eval...tetanus >5yrs PFSH Past Medical History Anxiety: Yes Depression: Yes Cardiovascular Problems: Yes (HTN) Diminished Hearing: No GERD: Yes Hypertension: Yes Immunizations Current: No Past Surgical History Cholecystectomy: Yes Social History Alcohol Use: Yes (2 DLY) Tobacco Use: Yes (1/2 PPD) Substance Use: No Allergies-Medications (Allergen,Severity, Reaction): Coded Allergies: codeine (Unverified Allergy, Severe, PASSES OUT, 10/28/16) Reported Meds & Prescriptions Reported Meds & Active Scripts Active Proair Hfa 8.5 GM Inh (Albuterol Sulfate) 90 Mcg/Act Aer 2 Puff INH Q4-6H PRN 108 mcg/actuation Lisinopril 10 Mg Tab 10 Mg PO DAILY Reported Trazodone (Trazodone HCl) 50 Mg Tab 50 Mg PO BID Aspirin EC (Aspirin) 81 Mg Tabdr 81 Mg PO DAILY Omeprazole 40 Mg Cap 40 Mg PO DAILY Sertraline (Sertraline HCl) 50 Mg Tab 50 Mg PO DAILY Lovastatin 10 Mg Tab 10 Mg PO DAILY Review of Systems Except as stated in HPI: all other systems reviewed are Neg Skin: Positive Other (laceration to left elbow) Physical Exam Narrative GENERAL: SKIN: Warm and dry. 3 cm lac over left elbow/olecranon HEAD: Atraumatic. Normocephalic. EYES: Patient legally blind and can only see shadows out of one eye.. No scleral icterus. No injection or drainage. ENT: No nasal bleeding or discharge. Mucous membranes pink and moist. NECK: Trachea midline. No JVD. CARDIOVASCULAR: Regular rate and rhythm. RESPIRATORY: No accessory muscle use. Clear to auscultation. Breath sounds equal bilaterally. GASTROINTESTINAL: Abdomen soft, non-tender, nondistended. Hepatic and splenic margins not palpable. MUSCULOSKELETAL: Extremities without clubbing, cyanosis, or edema. No obvious deformities. NEUROLOGICAL: Awake and alert. No obvious cranial nerve deficits. Motor grossly within normal limits. Five out of 5 muscle strength in the arms and legs. Normal speech. PSYCHIATRIC: Appropriate mood and affect; insight and judgment normal. Data Data Last Documented VS Vital Signs Date Time Temp Pulse Resp B/P (MAP) Pulse Ox O2 Delivery O2 Flow Rate FiO2 10/28/16 19:40 98.6 76 20 130/83 (99) 93 Orders Orders Lidocaine 1% Inj (50 Ml) (Xylocaine 1% I (10/28/16 20:00) Tetanus/Diphtheria Tox Adult (Tetanus/Di (10/28/16 20:00) MDM Medical Decision Making Medical Screen Exam Complete: Yes Emergency Medical Condition: Yes Medical Record Reviewed: Yes Differential Diagnosis simple laceration n/a Narrative Course see procedure note, pt advised to follow up for wound check in 3days with pcp and then in 10 days to remove sutures Procedures Procedure Narrative LACERATION LOCATION: [left elbow] LENGTH: [3cm] NUMBER OF STITCHES/GINI: [2 horizontal mattress-] REPAIR: The area of the laceration was prepped with Betadine and sterilely draped. The laceration was infiltrated with [1% lidocaine, used 2ml)]. The wound was copiously irrigated and explored without evidence of foreign body, tendon injury or neurovascular injury. The wound was closed using [sterile saline, under pressure...5-0 prolene used with 2 horizontal mattress sutures ]. This was a [single] layer repair. A sterile dressing was applied. The patient was advised to keep the dressing clean and dry. Patient tolerated the procedure well. Diagnosis Primary Impression: left elbow laceration s/p suture repair Patient Instructions: General Instructions, Laceration (ED) Additional Instructions: see your doctor for wound check in 3 days and for suture removal in 10 days total. Disposition: 01 DISCHARGE HOME Condition: Stable Elio Stewart MD Oct 28, 2016 20:38
== END 2016-10-28 20:52 | disposition home or self-care (01) ==
LOC: PHEFT 19:36
DX: S51.012A Laceration without foreign body of left elbow, initial encounter (principal); I10 Essential (primary) hypertension; H54.8 Legal blindness, as defined in USA; F17.200 Nicotine dependence, unspecified, uncomplicated; Z23 Encounter for immunization; Z86.59 Personal history of other mental and behavioral disorders; Z86.79 Personal history of other diseases of the circulatory system; Z87.19 Personal history of other diseases of the digestive system; W22.09XA Striking against other stationary object, initial encounter
CPT/HCPCS: 12002; 90471; 90714

== ENCOUNTER 2016-10-31 23:26 | Emergency (ER) | payer MEDICARE, OTHER ==
[~2016-10-31] VITALS: Ht 170.2 cm; Wt 82.3 kg
[2016-10-31 23:36] VITALS: BP 115/71; PULSE 81; RESP 14; TEMP 98.1; O2SAT 93
--- NOTE | 2016-10-31 23:49 | PD ---
HPI Chief Complaint: Laceration/Skin Injury Time Seen by Provider: 23:46 Travel History International Travel<30 days: No Contact w/Intl Traveler<30days: No Traveled to known affect area: No History of Present Illness HPI 61-year-old male presents to the emergency room by private transportation for evaluation of left elbow injury. According to the patient he injured himself on Friday10/28/16 and sustained a laceration to the left elbow. Laceration was repaired with sutures 2. Patient states this evening within the past one to 2 hours he thinks he bumped his elbow and noted blood on his clothing as well as a friend told him he had was bleeding from the elbow. Patient presents at this time for reevaluation of the left elbow. Patient rates his pain 0/10 in intensity. Patient's tetanus status is current as of 10/28/16. PFSH Past Medical History Narrative Medical Anxiety depression hypertension visually impaired alcohol use; nursing notes reviewed Anxiety: Yes Depression: Yes Cardiovascular Problems: Yes (HTN) Diminished Hearing: No GERD: Yes Hypertension: Yes Immunizations Current: No Past Surgical History Cholecystectomy: Yes Social History Alcohol Use: Yes (2 DLY) Tobacco Use: Yes (1/2 PPD) Substance Use: No Allergies-Medications (Allergen,Severity, Reaction): Coded Allergies: codeine (Unverified Allergy, Severe, PASSES OUT, 10/28/16) Reported Meds & Prescriptions Reported Meds & Active Scripts Active Proair Hfa 8.5 GM Inh (Albuterol Sulfate) 90 Mcg/Act Aer 2 Puff INH Q4-6H PRN 108 mcg/actuation Lisinopril 10 Mg Tab 10 Mg PO DAILY Reported Trazodone (Trazodone HCl) 50 Mg Tab 50 Mg PO BID Aspirin EC (Aspirin) 81 Mg Tabdr 81 Mg PO DAILY Omeprazole 40 Mg Cap 40 Mg PO DAILY Sertraline (Sertraline HCl) 50 Mg Tab 50 Mg PO DAILY Lovastatin 10 Mg Tab 10 Mg PO DAILY Review of Systems Except as stated in HPI: all other systems reviewed are Neg Physical Exam Narrative GENERAL: Well-developed well-nourished male in no acute distress no respiratory distress SKIN: Warm and dry. Attention left elbow shows mild soft tissue swelling nontender no active bleeding [address] no purulent drainage no redness intact range of motion distally neurovascular tendon intact. MUSCULOSKELETAL: No cyanosis, or edema. Data Data Last Documented VS Vital Signs Date Time Temp Pulse Resp B/P (MAP) Pulse Ox O2 Delivery O2 Flow Rate FiO2 10/31/16 23:50 98.1 81 16 115/71 (86) 94 Orders Orders Wound Care (11/01/16 00:03) MDM Medical Decision Making Medical Screen Exam Complete: Yes Emergency Medical Condition: Yes Medical Record Reviewed: Yes Differential Diagnosis Contusion, laceration, wound recheck, bursitis, cellulitis Narrative Course Patient with recent suture repair of laceration from 10/28/16 with reported reinjury just prior to arrival to the emergency department presently no active bleeding or laceration identified sutures are in place. Diagnosis Primary Impression: Visit for wound check Referrals: Primary Care Physician 3 days Patient Instructions: General Instructions Additional Instructions: Suture removal in 3-5 days Keep wound site clean and dry Follow-up with primary care provider Return to the emergency department for any concerns Marian Bell MD Oct 31, 2016 23:49
[2016-10-31 23:50] VITALS: BP 115/71; PULSE 81; RESP 16; TEMP 98.1; O2SAT 94
[2016-11-01 00:36] VITALS: BP 112/75
== END 2016-11-01 00:40 | disposition home or self-care (01) ==
LOC: PHED 23:26
DX: S51.012D Laceration without foreign body of left elbow, subsequent encounter (principal); I10 Essential (primary) hypertension; K21.9 Gastro-esophageal reflux disease without esophagitis; F17.210 Nicotine dependence, cigarettes, uncomplicated
CPT/HCPCS: 99281

== ENCOUNTER 2017-02-19 23:45 | Emergency (ER) | payer OTHER ==
[~2017-02-19 23:45] MED LIST changes: -ASPI81TA11 PO; +ASPI81TA23 PO
[2017-02-20 00:03] VITALS: BP 159/96; PULSE 80; RESP 18; TEMP 97.8; O2SAT 96
== END 2017-02-20 01:30 | disposition left against medical advice (07) ==
LOC: PHED 23:45
DX: M25.521 Pain in right elbow (principal); Z53.21 Procedure and treatment not carried out due to patient leaving prior to being seen by health care provider
CPT/HCPCS: 99281

== ENCOUNTER 2017-12-02 11:19 | Inpatient (IN) ==
--- NOTE | 2017-12-02 11:28 | ED ---
HPI General Chief complaint: Altered Mental Status Stated complaint: Medical Time Seen by Provider: 12/02/17 11:23 History of Present Illness HPI narrative: Male brought to the emergency department by EMS for evaluation of altered mental status. 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 They called EMS who came to the patient's home. Patient was noted to be found on the ground incontinent of urine and feces with altered mental status. Patient does not know his name, date of , age. He denies any specific complaints. He is not providing much in the way of history. Related Data Home Medications Medication Instructions Recorded Confirmed Unable to Obtain Home Meds 12/02/17 12/02/17 Allergies Allergy/AdvReac Type Severity Reaction Status Date / Time No Known Allergies Allergy Verified 12/02/17 11:49 Review of Systems ROS Unobtainable ROS Unobtainable: unobtainable due to mental status PMFSH Social History Social History Substance History: Unable to Obtain Smoking Status: Unknown if ever smoked How Often Do You Have a Drink Containing Alcohol: Unable to Obtain Recent Travel in [facility] within the Last 8 Weeks: No Recent Out of Country Travel within the Last 8 Weeks: No Exam Narrative Exam Narrative: GENERAL: Well-nourished male patient in no acute distress who is nontoxic appearing. Appears approximately 58 years old. SKIN: Warm and dry. HEAD: Normocephalic and atraumatic. EYES: Pinpoint pupils bilaterally. No injection, drainage, or hyphema noted. PERRLA. EOMI. ENT: No nasal drainage noted. Oropharynx is clear. NECK: Supple and the trachea is midline. CARDIOVASCULAR: Regular rate and rhythm. RESPIRATORY: Breath sounds are equal bilaterally with no accessory muscle use, wheezing, rhonchi, or crackles. GASTROINTESTINAL: Ecchymosis noted to left upper quadrant. Abdomen is soft, non -tender, and nondistended. No hepatosplenomegaly. RECTAL EXAM: No masses or tenderness, stool is brown. MUSCULOSKELETAL: Bruise noted over left hip. No obvious deformities, swelling, cyanosis is present throughout the upper and lower extremities. Patient has full range of motion without any signs of neurovascular compromise. Distal pulses are 2+ throughout. BACK: Nontender without any obvious deformities, bony point tenderness, or crepitus noted throughout the thoracic and lumbar vertebrae. NEUROLOGICAL: Awake, alert, and oriented. Normal speech and gait. Cranial nerves are grossly intact. Procedures Hemaprompt Stool Procedural Steps Taken: specimen placed in appropriate test area, developer placed on specimen and control areas and controls appropriately positive and negative Hemaprompt Stool Result: negative Course Initial Documented Vital Signs Temperature 94 F L 12/02/17 11:22 Pulse Rate 83 12/02/17 11:22 Respiratory Rate 15 12/02/17 11:22 Blood Pressure 170/118 H 12/02/17 11:22 Pulse Oximetry 100 12/02/17 11:22 Last Documented Vital Signs Temperature 95.4 F L 12/02/17 14:42 Pulse Rate 80 12/02/17 16:00 Respiratory Rate 19 12/02/17 16:00 Blood Pressure 167/98 H 12/02/17 16:00 Pulse Oximetry 97 12/02/17 16:00 Critical Care Time Critical Care Time: Yes Total Critical Care Time: 30 Attestation: Aggregate critical care time was 30 minutes. Time to perform other separately billable procedures was not included in the critical care time. My time did not include minutes spent treating any other patients simultaneously or on activities that did not directly contribute to the patient's treatment. The services I provided to this patient were to treat and/or prevent clinically significant deterioration that could result in: Permanent disability and/or I provided critical care services requiring my management, as noted below: Chart data review, documentation time, medication orders and management, vital sign assessments/reviewing monitor data, ordering and reviewing lab tests, ordering and interpreting/reviewing x-rays and diagnostic studies, care of the patient and discussion of the patient with the admitting physicians. Medical Decision Making SHABBIR Attestation SHABBIR supervised visit: Yes Attestation: I, Dr. Pérez, have reviewed the advance practice practitioner' s documentation and am in agreement, met with the patient face to face, made the diagnosis, and the medical decision making was done by me. *My assessment and Findings: Patient disheveled unkempt with fecal material caked on his lower extremities. Dry mucous membranes. Response to verbal stimuli. Pinpoint pupils. Stable vitals. Likely septic. MDM Narrative Medical decision making narrative: Approximately 58-year-old appearing male is brought to the emergency department by EMS for evaluation of altered mental status found down for unknown amount of time. Patient's rectal temperature is 94 F. Otherwise vital signs are within normal limits. IV access is obtained, labs been drawn and sent. Patient is placed on cardiac telemetry and pulse oximetry monitoring. Warm saline administered and bear hugger applied. Patient does have some ecchymosis noted to the left upper quadrant of the abdomen and to the left hip, CT imaging of the abdomen and pelvis has been ordered and is pending an x-ray imaging of the left hip has been ordered and is pending. Head CT has been ordered stat. EKG shows normal sinus rhythm with no acute ST elevations or depressions. Left hip x-ray is negative for any acute abnormalities. Coags are unremarkable. CBC shows decreased platelet count, otherwise unremarkable. CMP shows hypokalemia with potassium 2.4 and dehydration with creatinine 2.22, BUN 91, GFR 26, anion gap 21. Lactic acidosis with lactic acid 4.3. Troponin less than 0.02. CPK within normal limits. Chest x-ray is unremarkable. Urinalysis is unremarkable. Urine drug screen is negative. EtOH is negative. CT is negative. CT of the abdomen and pelvis without IV contrast is negative. CT of the lumbar spine shows mild disc bulges at L1-L2 and L3-L4, otherwise unremarkable for any acute abnormalities. Patient remains altered. He is speaking some words clearly but other words are difficult to understand. He is still moving all extremities equally. He is still not able to give any valuable history. Patient will be admitted for altered mental status, acute kidney injury, lactic acidosis and hypokalemia. I spoke with Dr. Iglesias [facility] who accepts the patient to her service for admission. Medical Screen Exam Complete: Yes Emergency Medical Condition: Yes Differential Diagnosis Differential Diagnosis: Dehydration versus electrolyte abnormality versus sepsis versus UTI versus intracranial hemorrhage versus drug overdose versus rhabdomyolysis Lab Data Result diagrams: 12/02/17 11:25 12/02/17 11:25 Lab Results 12/02/17 12/02/17 12/02/17 Range/Units 11:25 11:25 11:25 WBC 8.9 (4.0-11.0) th/mm3 RBC 4.38 L (4.50-5.90) mil/mm3 Hgb 14.5 (13.0-17.0) gm/dL Hct 42.7 (39.0-51.0) % MCV 97.5 (80.0-100.0) fL MCH 33.1 (27.0-34.0) pg MCHC 34.0 (32.0-36.0) % RDW 13.6 (11.6-17.2) % Plt Count 129 L (150-450) th/mm3 MPV 10.8 (7.0-11.0) fL Neut % (Auto) 80.6 H (16.0-70.0) % Lymph % (Auto) 10.8 (9.0-44.0) % [place] % (Auto) 8.2 H (0.0-8.0) % Eos % (Auto) 0.1 (0.0-4.0) % Baso % (Auto) 0.3 (0.0-2.0) % Neut # (Auto) 7.2 (1.8-7.7) th/mm3 Lymph # (Auto) 1.0 (1.0-4.8) th/mm3 [place] # (Auto) 0.7 (0.0-0.9) th/mm3 Eos # (Auto) 0.0 (0.0-0.4) th/mm3 Baso # (Auto) 0.0 (0.0-0.2) th/mm3 WBC Differential . Differential Comment Auto diff final ESR (0-20) mm/hr PT 11.5 (9.8-11.6) sec INR 1.1 Ratio APTT 23.7 L (24.3-30.1) sec Sodium 145 (136-145) meq/L Potassium 2.4 L* (3.5-5.1) meq/L Chloride 97 L (98-107) meq/L Carbon Dioxide 27.5 (21.0-32.0) meq/L Anion Gap 21 H (5-15) meq/L BUN 91 H (7-18) mg/dL Creatinine 2.22 H (0.60-1.30) mg/dL Estimated GFR 26 L (>89) mL/min POC Glucose (68-110) mg/dl Random Glucose 146 H (74-106) mg/dL Lactic Acid (0.4-2.0) mmol/L Calcium 9.0 (8.5-10.1) mg/dL Total Bilirubin 2.3 H (0.2-1.0) mg/dL AST 72 H (15-37) U/L ALT 31 (12-78) U/L Alkaline Phosphatase 66 (45-117) U/L Total Creatine Kinase (39-308) U/L Troponin I Less than 0.02 L (0.02-0.05) ng/mL Total Protein 7.0 (6.4-8.2) g/dL Albumin 3.0 L (3.4-5.0) g/dL Triglycerides (42-150) mg/dL Cholesterol (120-200) mg/dL LDL Cholesterol, Calc (0-99) mg/dL HDL Cholesterol (40.0-60.0) mg/dL Cholesterol/HDL Ratio Ratio Urine Color (Yellw/Straw) Urine Clarity (Clear) Urine pH (5.0-8.5) Ur Specific [place] (1.002-1.035) Urine Protein (Neg-Trace) mg/dL Urine Glucose (UA) (Negative) mg/dL Urine Ketones (Negative) mg/dL Urine Occult Blood (Negative) Urine Nitrate (Negative) Urine Bilirubin (Negative) Urine Urobilinogen (Less than 2) mg/dL Ur Leukocyte Esterase (Negative) Urine RBC (0-3) /hpf Urine WBC (0-5) /hpf Ur Squamous Epith Cells (0-5) /hpf Urine Bacteria (None) /hpf Hyaline Casts (0-3) /lpf Urine Mucus (Occasional) /lpf Micro UA Comment Ur Microscopic Review Urine Culture Comments Urine Opiates Screen (Neg) Ur Barbiturates Screen (Neg) Ur Amphetamines Screen (Neg) U Benzodiazepines Scrn (Neg) Urine Cocaine Screen (Neg) U Cannabinoids Screen (Neg) Serum Alcohol (0-5) mg/dL 12/02/17 12/02/17 12/02/17 Range/Units 11:25 11:25 11:25 WBC (4.0-11.0) th/mm3 RBC (4.50-5.90) mil/mm3 Hgb (13.0-17.0) gm/dL Hct (39.0-51.0) % MCV (80.0-100.0) fL MCH (27.0-34.0) pg MCHC (32.0-36.0) % RDW (11.6-17.2) % Plt Count (150-450) th/mm3 MPV (7.0-11.0) fL Neut % (Auto) (16.0-70.0) % Lymph % (Auto) (9.0-44.0) % [place] % (Auto) (0.0-8.0) % Eos % (Auto) (0.0-4.0) % Baso % (Auto) (0.0-2.0) % Neut # (Auto) (1.8-7.7) th/mm3 Lymph # (Auto) (1.0-4.8) th/mm3 [place] # (Auto) (0.0-0.9) th/mm3 Eos # (Auto) (0.0-0.4) th/mm3 Baso # (Auto) (0.0-0.2) th/mm3 WBC Differential Differential Comment ESR (0-20) mm/hr PT (9.8-11.6) sec INR Ratio APTT (24.3-30.1) sec Sodium (136-145) meq/L Potassium (3.5-5.1) meq/L Chloride (98-107) meq/L Carbon Dioxide (21.0-32.0) meq/L Anion Gap (5-15) meq/L BUN (7-18) mg/dL Creatinine (0.60-1.30) mg/dL Estimated GFR (>89) mL/min POC Glucose (68-110) mg/dl Random Glucose (74-106) mg/dL Lactic Acid 4.3 H* (0.4-2.0) mmol/L Calcium (8.5-10.1) mg/dL Total Bilirubin (0.2-1.0) mg/dL AST (15-37) U/L ALT (12-78) U/L Alkaline Phosphatase (45-117) U/L Total Creatine Kinase 131 (39-308) U/L Troponin I (0.02-0.05) ng/mL Total Protein (6.4-8.2) g/dL Albumin (3.4-5.0) g/dL Triglycerides (42-150) mg/dL Cholesterol (120-200) mg/dL LDL Cholesterol, Calc (0-99) mg/dL HDL Cholesterol (40.0-60.0) mg/dL Cholesterol/HDL Ratio Ratio Urine Color (Yellw/Straw) Urine Clarity (Clear) Urine pH (5.0-8.5) Ur Specific [place] (1.002-1.035) Urine Protein (Neg-Trace) mg/dL Urine Glucose (UA) (Negative) mg/dL Urine Ketones (Negative) mg/dL Urine Occult Blood (Negative) Urine Nitrate (Negative) Urine Bilirubin (Negative) Urine Urobilinogen (Less than 2) mg/dL Ur Leukocyte Esterase (Negative) Urine RBC (0-3) /hpf Urine WBC (0-5) /hpf Ur Squamous Epith Cells (0-5) /hpf Urine Bacteria (None) /hpf Hyaline Casts (0-3) /lpf Urine Mucus (Occasional) /lpf Micro UA Comment Ur Microscopic Review Urine Culture Comments Urine Opiates Screen (Neg) Ur Barbiturates Screen (Neg) Ur Amphetamines Screen (Neg) U Benzodiazepines Scrn (Neg) Urine Cocaine Screen (Neg) U Cannabinoids Screen (Neg) Serum Alcohol Less than 3 (0-5) mg/dL 12/02/17 12/02/17 12/02/17 Range/Units 11:25 11:25 11:38 WBC (4.0-11.0) th/mm3 RBC (4.50-5.90) mil/mm3 Hgb (13.0-17.0) gm/dL Hct (39.0-51.0) % MCV (80.0-100.0) fL MCH (27.0-34.0) pg MCHC (32.0-36.0) % RDW (11.6-17.2) % Plt Count (150-450) th/mm3 MPV (7.0-11.0) fL Neut % (Auto) (16.0-70.0) % Lymph % (Auto) (9.0-44.0) % [place] % (Auto) (0.0-8.0) % Eos % (Auto) (0.0-4.0) % Baso % (Auto) (0.0-2.0) % Neut # (Auto) (1.8-7.7) th/mm3 Lymph # (Auto) (1.0-4.8) th/mm3 [place] # (Auto) (0.0-0.9) th/mm3 Eos # (Auto) (0.0-0.4) th/mm3 Baso # (Auto) (0.0-0.2) th/mm3 WBC Differential Differential Comment ESR 35 H (0-20) mm/hr PT (9.8-11.6) sec INR Ratio APTT (24.3-30.1) sec Sodium (136-145) meq/L Potassium (3.5-5.1) meq/L Chloride (98-107) meq/L Carbon Dioxide (21.0-32.0) meq/L Anion Gap (5-15) meq/L BUN (7-18) mg/dL Creatinine (0.60-1.30) mg/dL Estimated GFR (>89) mL/min POC Glucose 176 H (68-110) mg/dl Random Glucose (74-106) mg/dL Lactic Acid (0.4-2.0) mmol/L Calcium (8.5-10.1) mg/dL Total Bilirubin (0.2-1.0) mg/dL AST (15-37) U/L ALT (12-78) U/L Alkaline Phosphatase (45-117) U/L Total Creatine Kinase (39-308) U/L Troponin I (0.02-0.05) ng/mL Total Protein (6.4-8.2) g/dL Albumin (3.4-5.0) g/dL Triglycerides 159 H (42-150) mg/dL Cholesterol 140 (120-200) mg/dL LDL Cholesterol, Calc 81 (0-99) mg/dL HDL Cholesterol 26.8 L (40.0-60.0) mg/dL Cholesterol/HDL Ratio 5.22 Ratio Urine Color (Yellw/Straw) Urine Clarity (Clear) Urine pH (5.0-8.5) Ur Specific [place] (1.002-1.035) Urine Protein (Neg-Trace) mg/dL Urine Glucose (UA) (Negative) mg/dL Urine Ketones (Negative) mg/dL Urine Occult Blood (Negative) Urine Nitrate (Negative) Urine Bilirubin (Negative) Urine Urobilinogen (Less than 2) mg/dL Ur Leukocyte Esterase (Negative) Urine RBC (0-3) /hpf Urine WBC (0-5) /hpf Ur Squamous Epith Cells (0-5) /hpf Urine Bacteria (None) /hpf Hyaline Casts (0-3) /lpf Urine Mucus (Occasional) /lpf Micro UA Comment Ur Microscopic Review Urine Culture Comments Urine Opiates Screen (Neg) Ur Barbiturates Screen (Neg) Ur Amphetamines Screen (Neg) U Benzodiazepines Scrn (Neg) Urine Cocaine Screen (Neg) U Cannabinoids Screen (Neg) Serum Alcohol (0-5) mg/dL 12/02/17 12/02/17 12/02/17 Range/Units 13:00 13:00 14:33 WBC (4.0-11.0) th/mm3 RBC (4.50-5.90) mil/mm3 Hgb (13.0-17.0) gm/dL Hct (39.0-51.0) % MCV (80.0-100.0) fL MCH (27.0-34.0) pg MCHC (32.0-36.0) % RDW (11.6-17.2) % Plt Count (150-450) th/mm3 MPV (7.0-11.0) fL Neut % (Auto) (16.0-70.0) % Lymph % (Auto) (9.0-44.0) % [place] % (Auto) (0.0-8.0) % Eos % (Auto) (0.0-4.0) % Baso % (Auto) (0.0-2.0) % Neut # (Auto) (1.8-7.7) th/mm3 Lymph # (Auto) (1.0-4.8) th/mm3 [place] # (Auto) (0.0-0.9) th/mm3 Eos # (Auto) (0.0-0.4) th/mm3 Baso # (Auto) (0.0-0.2) th/mm3 WBC Differential Differential Comment ESR (0-20) mm/hr PT (9.8-11.6) sec INR Ratio APTT (24.3-30.1) sec Sodium (136-145) meq/L Potassium (3.5-5.1) meq/L Chloride (98-107) meq/L Carbon Dioxide (21.0-32.0) meq/L Anion Gap (5-15) meq/L BUN (7-18) mg/dL Creatinine (0.60-1.30) mg/dL Estimated GFR (>89) mL/min POC Glucose (68-110) mg/dl Random Glucose (74-106) mg/dL Lactic Acid 3.0 H (0.4-2.0) mmol/L Calcium (8.5-10.1) mg/dL Total Bilirubin (0.2-1.0) mg/dL AST (15-37) U/L ALT (12-78) U/L Alkaline Phosphatase (45-117) U/L Total Creatine Kinase (39-308) U/L Troponin I (0.02-0.05) ng/mL Total Protein (6.4-8.2) g/dL Albumin (3.4-5.0) g/dL Triglycerides (42-150) mg/dL Cholesterol (120-200) mg/dL LDL Cholesterol, Calc (0-99) mg/dL HDL Cholesterol (40.0-60.0) mg/dL Cholesterol/HDL Ratio Ratio Urine Color Danielle (Yellw/Straw) Urine Clarity Hazy H (Clear) Urine pH 5.0 (5.0-8.5) Ur Specific [place] 1.015 (1.002-1.035) Urine Protein Negative (Neg-Trace) mg/dL Urine Glucose (UA) Negative (Negative) mg/dL Urine Ketones Negative (Negative) mg/dL Urine Occult Blood Small H (Negative) Urine Nitrate Negative (Negative) Urine Bilirubin Negative (Negative) Urine Urobilinogen 4 or greater (Less than 2) mg/dL Ur Leukocyte Esterase Negative (Negative) Urine RBC 1 (0-3) /hpf Urine WBC 2 (0-5) /hpf Ur Squamous Epith Cells 1 (0-5) /hpf Urine Bacteria Rare H (None) /hpf Hyaline Casts 34 (0-3) /lpf Urine Mucus Few H (Occasional) /lpf Micro UA Comment Cath-culture ind Ur Microscopic Review Not Reportable Urine Culture Comments Cath-cult indicated Urine Opiates Screen Neg (Neg) Ur Barbiturates Screen Neg (Neg) Ur Amphetamines Screen Neg (Neg) U Benzodiazepines Scrn Neg (Neg) Urine Cocaine Screen Neg (Neg) U Cannabinoids Screen Neg (Neg) Serum Alcohol (0-5) mg/dL Imaging Data Radiologist's impression: Chest X-Ray 12/02/17 11:24 CONCLUSION: No acute intrathoracic disease. Head CT 12/02/17 11:24 CONCLUSION: 1. Negative noncontrast head CT. . Hip X-Ray 12/02/17 11:34 CONCLUSION: 1. No acute fracture or joint dislocation. 2. Mild to moderate degenerative arthritis. Lumbar Spine CT 12/02/17 12:32 CONCLUSION: 1. Mild annular disc bulges at the L1-2 and L3-4 levels with visualized protrusion. Abdomen/Pelvis CT 12/02/17 12:59 CONCLUSION: 1. Status post cholecystectomy. 2. A few scattered diverticula along the sigmoid colon without inflammatory changes. 3. Otherwise, unremarkable exam. Discharge Plan Discharge Disposition Patient Disposition: 30 Still Patient Discharge Condition Condition: Fair Discharge Details Diagnosis: Altered mental status, Acute kidney injury, Acidosis, lactic, Acute hypokalemia Physicians Team ED Provider: Ortega Pérez ED Midlevel Provider: Neva Lloyd Primary Care Provider: UNKNOWN, Attending Provider: Jasmina Iglesias Other Providers: Cesar Godfrey ; Nelson Parnell Status ED Status: Left Department Discharge Information Discharge Date/Time: 12/02/17 15:40 Addendum entered and electronically signed by DIONICIO Brian 12/02/17 15:25: Correction to physical exam: Neurological: Awake and alert but disoriented. Speech difficult to understand. Cranial nerves grossly intact.
[2017-12-02] MEDS ORDERED: Sod Chloride 0.9% Inj 1,000 ML IV.SIG SCH (11:30)
[2017-12-02 12:23] LABS: Activated Partial Thrombo Time 23.7 sec (24.3-30.1); INR 1.1 Ratio; Prothrombin Time 11.5 sec (9.8-11.6)
--- NOTE | 2017-12-02 12:33 | XR ---
EXAM DATE: 12/02/2017 11:34 AM EDT AGE/SEX: 89 years / Male INDICATIONS: Left hip bruising. CLINICAL DATA: This is the patient's initial encounter. Patient reports that signs and symptoms have been present for 1 day and indicates a pain score of Nonresponsive. MEDICAL/SURGICAL HISTORY: Non-responsive. Non-responsive. COMPARISON: No prior exams available for comparison. FINDINGS: Bony structures are intact and in normal alignment. Joints are intact without dislocation. There is mild to moderate degenerative changes at the hip joint. There is joint space narrowing. Osseous dens ity is normal. Soft tissues are unremarkable. No radiopaque foreign bodies seen. CONCLUSION: 1. No acute fracture or joint dislocation. 2. Mild to moderate degenerative arthritis. Electronically signed by: Flip Cedeño MD 12/02/2017 12:32 PM EDT
--- NOTE | 2017-12-02 12:35 | XR ---
EXAM DATE: 12/02/2017 11:24 AM EDT AGE/SEX: 89 years / Male INDICATIONS: Fever. CLINICAL DATA: This is the patient's initial encounter. Patient reports that signs and symptoms have been present for 1 day and indicates a pain score of Nonresponsive. MEDICAL/SURGICAL HISTORY: Non-responsive. Non-responsive. COMPARISON: No prior exams available for comparison. FINDINGS: A single AP view of the chest demonstrates the lungs to be symmetrically aerated without evidence of mass, infiltrate or effusion. The cardiomediastinal contours are unremarkable. Osseous structures a re intact. CONCLUSION: No acute intrathoracic disease. Electronically signed by: Flip Cedeño MD 12/02/2017 12:33 PM EDT
[2017-12-02 12:44] LABS: Alanine Aminotransferase 31 U/L (12-78); Alkaline Phosphatase 66 U/L (45-117); Anion Gap 21 meq/L (5-15); Aspartate Aminotransferase 72 U/L (15-37); Blood Urea Nitrogen 91 mg/dL (7-18); Carbon Dioxide 27.5 meq/L (21.0-32.0); Chloride 97 meq/L (98-107); Glomerular Filtration Rate 26 mL/min (>89); Glucose,Random 146 mg/dL (74-106); Sodium 145 meq/L (136-145)
[2017-12-02 12:45] LABS: Potassium 2.4 meq/L (3.5-5.1)
[2017-12-02 13:04] LABS: Baso % (Auto) 0.3 % (0.0-2.0); Eos % (Auto) 0.1 % (0.0-4.0); Hematocrit 42.7 % (39.0-51.0); Hemoglobin 14.5 gm/dL (13.0-17.0); Lymph % (Auto) 10.8 % (9.0-44.0); Mean Corpuscular Hemoglobin 33.1 pg (27.0-34.0); Mean Corpuscular Volume 97.5 fL (80.0-100.0); Mean Platelet Volume 10.8 fL (7.0-11.0); Mono # (Auto) 0.7 th/mm3 (0.0-0.9); Mono % (Auto) 8.2 % (0.0-8.0); Neut # (Auto) 7.2 th/mm3 (1.8-7.7); Neut % (Auto) 80.6 % (16.0-70.0); Platelet Count 129 th/mm3 (150-450); Red Blood Count 4.38 mil/mm3 (4.50-5.90); Red Cell Distribution Width 13.6 % (11.6-17.2); White Blood Count 8.9 th/mm3 (4.0-11.0)
[2017-12-02 13:31] LABS: Bacteria,Urine Rare /hpf; Bilirubin,Urine Negative (Negative); Clarity,Urine Hazy (Clear); Color,Urine Amber (Yellw/Straw); Glucose,Urine (UA) Negative (Negative); Hyaline Casts,Urine 34 /lpf (0-3); Leukocyte Esterase,Urine Negative (Negative); Mucus,Urine Few /lpf (Occasional); Nitrite,Urine Negative (Negative); Specific Gravity,Urine 1.015 (1.002-1.035); Squamous Epithelial Cell,Urine 1 /hpf (0-5); Urobilinogen,Urine 4 or Greater mg/dL (Less than 2)
[2017-12-02 13:35] LABS: Amphetamine Screen,Urine Neg (Neg); Barbiturate Screen,Urine Neg (Neg); Cannabinoid Screen,Urine Neg (Neg); Cocaine Screen,Urine Neg (Neg)
[2017-12-02 13:38] LABS: Opiate Screen,Urine Neg (Neg)
--- NOTE | 2017-12-02 13:46 | CT ---
EXAM DATE: 12/02/2017 1:02 PM EDT AGE/SEX: 89 years / Male INDICATIONS: Altered mental status CLINICAL DATA: This is the patient's initial encounter. Patient reports that signs and symptoms have been present for 1 day and indicates a pain score of Nonresponsive. MEDICAL/SURGICAL HISTORY: Non-responsive. Non-responsive. RADIATION DOSE: 43.57 CTDI (mGy) COMPARISON: No prior exams available for comparison. TECHNIQUE: CT of the head without contrast. Using automated exposure control and adjustment of the mA and/or kV according to patient size, radiation dose was kept as low as reasonably achievable to ob tain optimal diagnostic quality images. DICOM format image data is available electronically for revi ew and comparison. FINDINGS: Cerebrum: The ventricles are normal for age. No evidence of midline shift, mass lesion, hemorrhage or acute infarction. No extraaxial fluid collections are seen. Posterior Fossa: The cerebellum and brainstem are intact. The 4th ventricle is midline. The cerebe llopontine angle is unremarkable. Extracranial: The visualized portion of the orbits is intact. Skull: The calvaria is intact. No evidence of skull fracture. CONCLUSION: 1. Negative noncontrast head CT. . Electronically signed by: Hammad Ramsey MD 12/02/2017 1:45 PM EDT
--- NOTE | 2017-12-02 14:06 | CT ---
EXAM DATE: 12/02/2017 1:02 PM EDT AGE/SEX: 89 years / Male INDICATIONS: Altered mental status, incontinence CLINICAL DATA: This is the patient's initial encounter. Patient reports that signs and symptoms have been present for 1 day and indicates a pain score of Nonresponsive. MEDICAL/SURGICAL HISTORY: Non-responsive. Non-responsive. RADIATION DOSE: 9.51 CTDI (mGy) COMPARISON: No prior exams available for comparison. TECHNIQUE: Multiple contiguous axial images were obtained through the abdomen. Images were obtained using multiple row detector helical technique. Using automated exposure control and adjustment of the mA and/or kV according to patient size, radiation dose was kept as low as reasonably achievable to o btain optimal diagnostic quality images. DICOM format image data is available electronically for rev iew and comparison. Lack of IV contrast limits the diagnosis for certain organ pathology. FINDINGS: Lower Lungs: The visualized lower lungs are clear. Liver: The liver has a homogeneous density without space-occupying lesion. There is no dilation of th e biliary tree. Gallbladder removed. Spleen: Homogeneous density without enlargement. Pancreas: Unremarkable without mass or calcification. Kidneys: Normal in size and shape. No evidence of mass or hydronephrosis. Adrenal Glands: Unremarkable. Aorta: The aorta and proximal iliac vessels are grossly unremarkable without aneurysmal dilation. Bowel/Mesentery: The bowel loops are grossly unremarkable. The cecum and sigmoid colon have a normal configuration. The appendix is unremarkable. A few scattered diverticula seen along the sigmoid colo n without inflammatory changes. No free fluid or free air. Abdominal Wall: Intact. Retroperitoneum: No evidence of adenopathy in the retrocrural, para-aortic, or deep pelvic regions. Bladder: Contours are smooth. Reproductive Organs: No abnormal masses or calcifications seen. Inguinal: The inguinal region is unremarkable without evidence of adenopathy. Bony Structures: Bony degenerative changes. CONCLUSION: 1. Status post cholecystectomy. 2. A few scattered diverticula along the sigmoid colon without inflammatory changes. 3. Otherwise, unremarkable exam. Electronically signed by: Flip Cedeño MD 12/02/2017 2:04 PM EDT
[2017-12-02] MEDS ORDERED: hydrALAZINE 10 MG Tablet PO SCH (14:15)
--- NOTE | 2017-12-02 14:20 | CT ---
EXAM DATE: 12/02/2017 1:02 PM EDT AGE/SEX: 89 years / Male INDICATIONS: Altered mental status, incontinence CLINICAL DATA: This is the patient's initial encounter. Patient reports that signs and symptoms have been present for 1 day and indicates a pain score of Nonresponsive. MEDICAL/SURGICAL HISTORY: Non-responsive. Non-responsive. RADIATION DOSE: . CTDI (mGy) ; Reconstructed from previous dataset, no dose COMPARISON: No prior exams available for comparison. TECHNIQUE: Contiguous axial images were acquired with a multirow detector CT scanner without contras t. Multiplanar reconstructions in the sagittal and coronal plane were also performed. Using automate d exposure control and adjustment of the mA and/or kV according to patient size, radiation dose was k ept as low as reasonably achievable to obtain optimal diagnostic quality images. DICOM format image data is available electronically for review and comparison. FINDINGS: Vertebrae: Normal vertebral body height. Discs: Disc space heights are fairly well preserved. Alignment: Normal. No subluxation. T12-L1: The thecal sac has a normal diameter. No evidence of disc bulge or protrusion. The neural foramina are patent bilaterally. L1-L2: There is a mild annular disc bulge with flattening of the anterior thecal sac and no focal pr otrusion. The neural foramina are patent. L2-L3: The thecal sac has a normal diameter. No evidence of disc bulge or protrusion. The neural f oramina are patent bilaterally. L3-L4: There is a mild annular disc bulge with mild flattening of the anterior thecal sac and no vis ualized protrusion. The neural foramina are patent. L4-L5: The thecal sac has a normal diameter. No evidence of disc bulge or protrusion. The neural f oramina are patent bilaterally. L5-S1: The thecal sac has a normal diameter. No evidence of disc bulge or protrusion. The neural f oramina are patent bilaterally. CONCLUSION: 1. Mild annular disc bulges at the L1-2 and L3-4 levels with visualized protrusion. Electronically signed by: Hammad Ramsey MD 12/02/2017 2:19 PM EDT
[2017-12-02] MEDS: Potassium Chlor 20 mEq Premix 20 MEQ/100 ML PIGGYBACK IV.SIG SCH ×4 (14:25→21:27)
[2017-12-02] MEDS ORDERED: Labetalol HCl Inj 100 MG/20 ML Vial IV.PUSH ONE (14:54)
[2017-12-02] MEDS ORDERED: Bisacodyl 10 MG Supp RECTAL PRN (15:21)
[2017-12-02] MEDS ORDERED: Haloperidol Inj 5 MG/ML Ampul IV.PUSH PRN (15:29)
[2017-12-02] MEDS ORDERED: Magnesium Oxide 400 MG Tablet PO ONE (15:42)
--- NOTE | 2017-12-02 15:45 | P.HP ---
History of Present Illness Service: Medicine Primary Care Physician: UNKNOWN Chief Complaint: Fall, altered mental status History of Present Illness: Mr. Jo is an unknown aged male who was brought to the ED by EMS for evaluation of altered mental status. Patient is a poor historian due to AMS, history is obtained from the ED and EMS staff. Patient had not been seen outside of his condo in a day by maintenance workers. The workers called EMS, who found the patient on the ground incontinent of urine and feces with altered mental status. He is unable to answer questions about his name, age, or date of . He has no specific complaints. Inpatient Certification: I certify that the inpatient services were ordered in accordance with Medicare regulations governing the order. This includes certification that hospital inpatient services are reasonable and necessary and in the case of services not specified as inpatient-only under 42 CFR 419.22(n), that they are appropriately provided as inpatient services in accordance to with the 2-midnight benchmark under 43 CFR 412.3(e) Estimated Total Length of Stay (Days): 2 Plans for Post Hospital Care: Not yet determined Review of Systems unobtainable due to mental status PMFSH - History History Provided By: Pharmacy Intake Coordinator / EMT - Medical / Surgical Hx Neg / Unobtainable Medical Problems Denied: Unable to Obtain - Tobacco History Smoking Status: Unknown if ever smoked - Alcohol History How Often Do You Have a Drink Containing Alcohol: Unable to Obtain - Substance Use History Substance History: Unable to Obtain - Travel History Recent Travel in the [place] Within the Last 8 Weeks: No Recent Travel Out of the Country Within the Last 8 Weeks: No - Immunization History Tetanus Immunization: Unable to Assess Medications and Allergies Active Medications: Active Medications Sodium Chloride (Ns Inj) 1,000 mls @ 0 mls/hr IV.SIG BOLUS ALEXX Last Infusion: 12/02/17 13:00 Dose: Infused Potassium Chloride (Kcl 20 Meq Premix Inj) 20 meq in 100 mls @ 50 mls/hr IV.SIG Q2H ALEXX Stop: 12/02/17 16:59 Last Admin: 12/02/17 14:25 Dose: 50 mls/hr Allergies Allergy/AdvReac Type Severity Reaction Status Date / Time No Known Allergies Allergy Verified 12/02/17 11:49 Home Medications Medication Instructions Recorded Confirmed Type Unable to Obtain Home Meds 12/02/17 12/02/17 History Exam Vital signs: Vital Signs 12/02/17 11:22 12/02/17 11:50 12/02/17 12:30 Temperature 94 F L Pulse Rate 83 85 Respiratory Rate 15 16 Blood Pressure 170/118 H 168/110 H Pulse Oximetry 100 99 97 12/02/17 14:42 Temperature 95.4 F L Pulse Rate 80 Respiratory Rate 16 Blood Pressure 144/99 H Pulse Oximetry 100 Intake & Output 12/01/17 12/02/17 12/02/17 18:59 06:59 18:59 Intake Total 1000 / 1000 Balance 1000 / 1000 Weight 77.111 kg Intake: IV 1000 / 1000 NS Inj 1,000 ML @ Wide Open IV. 1000 / 1000 SIG BOLUS ALEXX Rx#:[id number] Results - Labs CBC & Chem 7: 12/02/17 11:25 12/02/17 11:25 Labs: Laboratory Results - last 24 hr 12/02/17 12/02/17 12/02/17 11:25 11:25 11:25 WBC 8.9 RBC 4.38 L Hgb 14.5 Hct 42.7 MCV 97.5 MCH 33.1 MCHC 34.0 RDW 13.6 Plt Count 129 L MPV 10.8 Neut % (Auto) 80.6 H Lymph % (Auto) 10.8 Hunt % (Auto) 8.2 H Eos % (Auto) 0.1 Baso % (Auto) 0.3 Neut # (Auto) 7.2 Lymph # (Auto) 1.0 Hunt # (Auto) 0.7 Eos # (Auto) 0.0 Baso # (Auto) 0.0 WBC Differential . Differential Comment Auto diff final PT 11.5 INR 1.1 APTT 23.7 L Sodium 145 Potassium 2.4 L* Chloride 97 L Carbon Dioxide 27.5 Anion Gap 21 H BUN 91 H Creatinine 2.22 H Estimated GFR 26 L POC Glucose Random Glucose 146 H Lactic Acid Calcium 9.0 Total Bilirubin 2.3 H AST 72 H ALT 31 Alkaline Phosphatase 66 Total Creatine Kinase Troponin I Less than 0.02 L Total Protein 7.0 Albumin 3.0 L Urine Color Urine Clarity Urine pH Ur Specific Suring Urine Protein Urine Glucose (UA) Urine Ketones Urine Occult Blood Urine Nitrate Urine Bilirubin Urine Urobilinogen Ur Leukocyte Esterase Urine RBC Urine WBC Ur Squamous Epith Cells Urine Bacteria Hyaline Casts Urine Mucus Micro UA Comment Ur Microscopic Review Urine Culture Comments Urine Opiates Screen Ur Barbiturates Screen Ur Amphetamines Screen U Benzodiazepines Scrn Urine Cocaine Screen U Cannabinoids Screen Serum Alcohol 12/02/17 12/02/17 12/02/17 11:25 11:25 11:25 WBC RBC Hgb Hct MCV MCH MCHC RDW Plt Count MPV Neut % (Auto) Lymph % (Auto) Hunt % (Auto) Eos % (Auto) Baso % (Auto) Neut # (Auto) Lymph # (Auto) Hunt # (Auto) Eos # (Auto) Baso # (Auto) WBC Differential Differential Comment PT INR APTT Sodium Potassium Chloride Carbon Dioxide Anion Gap BUN Creatinine Estimated GFR POC Glucose Random Glucose Lactic Acid 4.3 H* Calcium Total Bilirubin AST ALT Alkaline Phosphatase Total Creatine Kinase 131 Troponin I Total Protein Albumin Urine Color Urine Clarity Urine pH Ur Specific Suring Urine Protein Urine Glucose (UA) Urine Ketones Urine Occult Blood Urine Nitrate Urine Bilirubin Urine Urobilinogen Ur Leukocyte Esterase Urine RBC Urine WBC Ur Squamous Epith Cells Urine Bacteria Hyaline Casts Urine Mucus Micro UA Comment Ur Microscopic Review Urine Culture Comments Urine Opiates Screen Ur Barbiturates Screen Ur Amphetamines Screen U Benzodiazepines Scrn Urine Cocaine Screen U Cannabinoids Screen Serum Alcohol Less than 3 12/02/17 12/02/17 12/02/17 11:38 13:00 13:00 WBC RBC Hgb Hct MCV MCH MCHC RDW Plt Count MPV Neut % (Auto) Lymph % (Auto) Hunt % (Auto) Eos % (Auto) Baso % (Auto) Neut # (Auto) Lymph # (Auto) Hunt # (Auto) Eos # (Auto) Baso # (Auto) WBC Differential Differential Comment PT INR APTT Sodium Potassium Chloride Carbon Dioxide Anion Gap BUN Creatinine Estimated GFR POC Glucose 176 H Random Glucose Lactic Acid Calcium Total Bilirubin AST ALT Alkaline Phosphatase Total Creatine Kinase Troponin I Total Protein Albumin Urine Color Danielle Urine Clarity Hazy H Urine pH 5.0 Ur Specific Suring 1.015 Urine Protein Negative Urine Glucose (UA) Negative Urine Ketones Negative Urine Occult Blood Small H Urine Nitrate Negative Urine Bilirubin Negative Urine Urobilinogen 4 or greater Ur Leukocyte Esterase Negative Urine RBC 1 Urine WBC 2 Ur Squamous Epith Cells 1 Urine Bacteria Rare H Hyaline Casts 34 Urine Mucus Few H Micro UA Comment Cath-culture ind Ur Microscopic Review Not Reportable Urine Culture Comments Cath-cult indicated Urine Opiates Screen Neg Ur Barbiturates Screen Neg Ur Amphetamines Screen Neg U Benzodiazepines Scrn Neg Urine Cocaine Screen Neg U Cannabinoids Screen Neg Serum Alcohol 12/02/17 14:33 WBC RBC Hgb Hct MCV MCH MCHC RDW Plt Count MPV Neut % (Auto) Lymph % (Auto) Hunt % (Auto) Eos % (Auto) Baso % (Auto) Neut # (Auto) Lymph # (Auto) Hunt # (Auto) Eos # (Auto) Baso # (Auto) WBC Differential Differential Comment PT INR APTT Sodium Potassium Chloride Carbon Dioxide Anion Gap BUN Creatinine Estimated GFR POC Glucose Random Glucose Lactic Acid 3.0 H Calcium Total Bilirubin AST ALT Alkaline Phosphatase Total Creatine Kinase Troponin I Total Protein Albumin Urine Color Urine Clarity Urine pH Ur Specific Suring Urine Protein Urine Glucose (UA) Urine Ketones Urine Occult Blood Urine Nitrate Urine Bilirubin Urine Urobilinogen Ur Leukocyte Esterase Urine RBC Urine WBC Ur Squamous Epith Cells Urine Bacteria Hyaline Casts Urine Mucus Micro UA Comment Ur Microscopic Review Urine Culture Comments Urine Opiates Screen Ur Barbiturates Screen Ur Amphetamines Screen U Benzodiazepines Scrn Urine Cocaine Screen U Cannabinoids Screen Serum Alcohol - Imaging Impressions Chest X-Ray 12/02/17 11:24 CONCLUSION: No acute intrathoracic disease. Head CT 12/02/17 11:24 CONCLUSION: 1. Negative noncontrast head CT. . Hip X-Ray 12/02/17 11:34 CONCLUSION: 1. No acute fracture or joint dislocation. 2. Mild to moderate degenerative arthritis. Lumbar Spine CT 12/02/17 12:32 CONCLUSION: 1. Mild annular disc bulges at the L1-2 and L3-4 levels with visualized protrusion. Abdomen/Pelvis CT 12/02/17 12:59 CONCLUSION: 1. Status post cholecystectomy. 2. A few scattered diverticula along the sigmoid colon without inflammatory changes. 3. Otherwise, unremarkable exam. Caprini VTE Risk Assessment Caprini Risk Assessment Model: Point Value = 1 Point Value = 2 Point Value = 3 Point Value = 5 Age 41-60 Minor surgery BMI > 25 kg/m2 Swollen legs Varicose veins or History of unexplained or recurrent spontaneous Oral contraceptives or hormone replacement Sepsis (< 1 month) Serious lung disease, including pneumonia (< 1 month) Abnormal pulmonary function Acute myocardial infarction Congestive heart failure (< 1 month) History of inflammatory bowel disease Medical patient at bed rest Age 61-74 Arthroscopic surgery Major open surgery (> 45 min) Laparoscopic surgery (> 45 min) Malignancy Confined to bed (> 72 hours) Immobilizing plaster cast Central venous access Age >= 75 History of VTE Family history of VTE Factor V Leiden Prothrombin [id number] Lupus anticoagulant Anticardiolipin antibodies Elevated serum homocysteine Heparin-induced thrombocytopenia Other congenital or acquired thrombophilia Stroke (< 1 month) Elective arthroplasty Hip, pelvis, or leg fracture Acute spinal cord injury (< 1 month) Prophylaxis Regimen: Total Risk Factor Score Risk Level Prophylaxis Regimen 0-1 Low Early ambulation 2 Moderate Order ONE of the following: *Sequential Compression Device (SCD) *Heparin 5000 units SQ BID 3-4 Higher Order ONE of the following medications: *Heparin 5000 units SQ TID *Enoxaparin/Lovenox 40 mg SQ daily (WT < 150 kg, CrCl > 30 mL/min) *Enoxaparin/Lovenox 30 mg SQ daily (WT < 150 kg, CrCl > 10-29 mL/min) *Enoxaparin/Lovenox 30 mg SQ BID (WT < 150 kg, CrCl > 30 mL/min) AND/OR *Sequential Compression Device (SCD) 5 or more Highest Order ONE of the following medications: *Heparin 5000 units SQ TID (Preferred with Epidurals) *Enoxaparin/Lovenox 40 mg SQ daily (WT < 150 kg, CrCl > 30 mL/min) *Enoxaparin/Lovenox 30 mg SQ daily (WT < 150 kg, CrCl > 10-29 mL/min) *Enoxaparin/Lovenox 30 mg SQ BID (WT < 150 kg, CrCl > 30 mL/min) AND *Sequential Compression Device (SCD) Assessment and Plan - Plan Assessment/Plan: Possible metabolic/toxic encephalopathy Lactic acidosis on admission LA 4.3 Metabolic acidosis with elevated anion gap 21 Severe hypokalemia Elevated bilirubin Transaminitis with AST at 72 Acute kidney injury, creatinine 2.2 however, unknown baseline Urinary tract infection Patient received CT scan of the head on admission, results discussed with ER physician, no acute changes Urine toxicology reviewed, normal findings Neurology and Psych consulted Neuro checks, seizure precautions, EEG ordered, telemetry monitoring, CIWA protocol Cefepime received in the ER, continue rocephin iv for UTI, blood cultures and urine cultures pending, follow results Check lipase. Check CBC, CMP, LA, Mg, Phosp, B12. Monitor labs until lactic acid is back to normal and anion gap closes Start IVF, D5W-1/2NS + KCL 20 mEq, replete electrolytes as needed Code Status: Full
--- NOTE | 2017-12-02 15:48 | P.HP ---
History of Present Illness Primary Care Physician: UNKNOWN Chief Complaint: altered mental status History of Present Illness: Mr. Jo is an unknown aged male who was brought to the ED by EMS for evaluation of altered mental status. Patient is a poor historian due to AMS, history is obtained from the ED and EMS staff. Patient had not been seen outside of his condo in a day by maintenance workers. The workers called EMS, who found the patient on the ground incontinent of urine and feces with altered mental status. He is unable to answer questions about his name, age, or date of . He has no specific complaints. History is limited due to AMS Family , PMH, home meds, surgical hx is not obtainable at this time Inpatient Certification: I certify that the inpatient services were ordered in accordance with Medicare regulations governing the order. 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 - Medical / Surgical Hx Neg / Unobtainable Medical Problems Denied: Unable to Obtain - Tobacco History Smoking Status: Unknown if ever smoked - Alcohol History How Often Do You Have a Drink Containing Alcohol: Unable to Obtain - Substance Use History Substance History: Unable to Obtain - Travel History Recent Travel in the [place] Within the Last 8 Weeks: No Recent Travel Out of the Country Within the Last 8 Weeks: No - Immunization History Tetanus Immunization: Unable to Assess Medications and Allergies Active Medications: Active Medications Acetaminophen (Tylenol) 650 mg PO Q4H PRN PRN Reason: Temp > 100.4 Al Hydroxide/Mg Hydroxide (Milk Of Magnesia Liq) 30 ml PO Q12H PRN PRN Reason: Mild Constipation Bisacodyl (Dulcolax Supp) 10 mg RECTAL DAILY PRN PRN Reason: SEVERE CONSITIPATION Flumazenil (Romazecon Inj) 0.2 mg IV.PUSH Q1M PRN PRN Reason: OVERSEDATION Folic Acid (Folic Acid) 1 mg PO DAILY ALE[facility] Stop: 12/07/17 15:29 Haloperidol Lactate (Haldol Inj) 1 mg IV.PUSH Q15M PRN PRN Reason: for severe agitation Sodium Chloride (Ns Inj) 1,000 mls @ 0 mls/hr IV.SIG BOLUS [facility] Last Infusion: 12/02/17 13:00 Dose: Infused Potassium Chloride (Kcl 20 Meq Premix Inj) 20 meq in 100 mls @ 50 mls/hr IV.SIG Q2H ALEXX Stop: 12/02/17 16:59 Last Infusion: 12/02/17 15:35 Dose: 50 mls/hr Potassium Chloride/Dextrose/Sod Cl (D5w/1/2ns + Kcl 20 Meq Inj) 1,000 mls @ 100 mls/hr IV.CONT .Q10H ALEXX Ceftriaxone Sodium 1,000 mg/ (Sodium Chloride) 100 mls @ 200 mls/hr IV.SIG Q24H ALEXX Lactulose (Lactulose Liq) 30 ml PO DAILY PRN PRN Reason: SEVERE CONSITIPATION Lorazepam (Ativan) 1 mg PO Q4H PRN PRN Reason: for CIWA 8-10 Lorazepam (Ativan Inj) 2 mg IV.PUSH Q2H PRN PRN Reason: for CIWA 11-14 Lorazepam (Ativan Inj) 2 mg IV.PUSH Q1H PRN PRN Reason: for CIWA 15-20 Lorazepam (Ativan Inj) 2 mg IV.PUSH Q15M PRN PRN Reason: for CIWA > 20 Lorazepam (Ativan Inj) 1 mg IV.PUSH Q4H PRN PRN Reason: for CIWA 8-10 Lorazepam (Ativan) 2 mg PO Q2H PRN PRN Reason: for CIWA 11-14 Multivitamins/Minerals (Theragran-M) 1 tab PO DAILY [facility] Stop: 12/07/17 15:29 Ondansetron HCl (Zofran Inj) 4 mg IV.PUSH Q6H PRN PRN Reason: NAUSEA OR VOMITING Pantoprazole Sodium (Protonix) 40 mg PO DAILY [facility] Senna/Docusate Sodium (Esperanza-Colace) 1 tab PO BID [facility] Sennosides (Senokot) 17.2 mg PO Q12H PRN PRN Reason: Moderate Constipation Thiamine HCl (Vitamin B1) 100 mg PO DAILY [facility] Allergies Allergy/AdvReac Type Severity Reaction Status Date / Time No Known Allergies Allergy Verified 12/02/17 11:49 Home Medications Medication Instructions Recorded Confirmed Type Unable to Obtain Home Meds 12/02/17 12/02/17 History Exam Vital signs: Vital Signs 12/02/17 11:22 12/02/17 11:50 12/02/17 12:30 Temperature 94 F L Pulse Rate 83 85 Respiratory Rate 15 16 Blood Pressure 170/118 H 168/110 H Pulse Oximetry 100 99 97 12/02/17 14:42 Temperature 95.4 F L Pulse Rate 80 Respiratory Rate 16 Blood Pressure 144/99 H Pulse Oximetry 100 Intake & Output 12/01/17 12/02/17 12/02/17 18:59 06:59 18:59 Intake Total 1100 / 1100 Balance 1100 / 1100 Weight 77.111 kg Intake: IV 1100 / 1100 Maxipime Inj 2,000 MG In NS Inj 100 / 100 100 ML @ 200 mls/hr IV.SIG ONCE ONE Rx#:[id number] NS Inj 1,000 ML @ Wide Open IV. 1000 / 1000 SIG BOLUS ALEXX Rx#:[id number] Narrative: GENERAL: Around 58 yo male, in bed appears in nad. Disoriented, with delirium, following some commands. SKIN: Warm and dry. Some bruises on left arm, chest and abdomen. HEAD: Atraumatic. Normocephalic. EYES: Pupils equal and round. No scleral icterus. No injection or drainage. ENT: No nasal bleeding or discharge. Mucous membranes pink and moist. NECK: Trachea midline. No JVD. CARDIOVASCULAR: Regular rate and rhythm. RESPIRATORY: No accessory muscle use. Clear to auscultation. Breath sounds equal bilaterally. GASTROINTESTINAL: Abdomen soft, non-tender, nondistended. Hepatic and splenic margins not palpable. MUSCULOSKELETAL: Extremities without clubbing, cyanosis, or edema. No obvious deformities. NEUROLOGICAL: Lethargic. Not following commands. Moving arms and legs spontaneously. PSYCHIATRIC: Delirium. Results - Labs CBC & Chem 7: 12/02/17 11:25 12/02/17 11:25 Labs: Laboratory Results - last 24 hr 12/02/17 12/02/17 12/02/17 11:25 11:25 11:25 WBC 8.9 RBC 4.38 L Hgb 14.5 Hct 42.7 MCV 97.5 MCH 33.1 MCHC 34.0 RDW 13.6 Plt Count 129 L MPV 10.8 Neut % (Auto) 80.6 H Lymph % (Auto) 10.8 [place] % (Auto) 8.2 H Eos % (Auto) 0.1 Baso % (Auto) 0.3 Neut # (Auto) 7.2 Lymph # (Auto) 1.0 [place] # (Auto) 0.7 Eos # (Auto) 0.0 Baso # (Auto) 0.0 WBC Differential . Differential Comment Auto diff final PT 11.5 INR 1.1 APTT 23.7 L Sodium 145 Potassium 2.4 L* Chloride 97 L Carbon Dioxide 27.5 Anion Gap 21 H BUN 91 H Creatinine 2.22 H Estimated GFR 26 L POC Glucose Random Glucose 146 H Lactic Acid Calcium 9.0 Total Bilirubin 2.3 H AST 72 H ALT 31 Alkaline Phosphatase 66 Total Creatine Kinase Troponin I Less than 0.02 L Total Protein 7.0 Albumin 3.0 L Urine Color Urine Clarity Urine pH Ur Specific [place] Urine Protein Urine Glucose (UA) Urine Ketones Urine Occult Blood Urine Nitrate Urine Bilirubin Urine Urobilinogen Ur Leukocyte Esterase Urine RBC Urine WBC Ur Squamous Epith Cells Urine Bacteria Hyaline Casts Urine Mucus Micro UA Comment Ur Microscopic Review Urine Culture Comments Urine Opiates Screen Ur Barbiturates Screen Ur Amphetamines Screen U Benzodiazepines Scrn Urine Cocaine Screen U Cannabinoids Screen Serum Alcohol 12/02/17 12/02/17 12/02/17 11:25 11:25 11:25 WBC RBC Hgb Hct MCV MCH MCHC RDW Plt Count MPV Neut % (Auto) Lymph % (Auto) [place] % (Auto) Eos % (Auto) Baso % (Auto) Neut # (Auto) Lymph # (Auto) [place] # (Auto) Eos # (Auto) Baso # (Auto) WBC Differential Differential Comment PT INR APTT Sodium Potassium Chloride Carbon Dioxide Anion Gap BUN Creatinine Estimated GFR POC Glucose Random Glucose Lactic Acid 4.3 H* Calcium Total Bilirubin AST ALT Alkaline Phosphatase Total Creatine Kinase 131 Troponin I Total Protein Albumin Urine Color Urine Clarity Urine pH Ur Specific [place] Urine Protein Urine Glucose (UA) Urine Ketones Urine Occult Blood Urine Nitrate Urine Bilirubin Urine Urobilinogen Ur Leukocyte Esterase Urine RBC Urine WBC Ur Squamous Epith Cells Urine Bacteria Hyaline Casts Urine Mucus Micro UA Comment Ur Microscopic Review Urine Culture Comments Urine Opiates Screen Ur Barbiturates Screen Ur Amphetamines Screen U Benzodiazepines Scrn Urine Cocaine Screen U Cannabinoids Screen Serum Alcohol Less than 3 12/02/17 12/02/17 12/02/17 11:38 13:00 13:00 WBC RBC Hgb Hct MCV MCH MCHC RDW Plt Count MPV Neut % (Auto) Lymph % (Auto) [place] % (Auto) Eos % (Auto) Baso % (Auto) Neut # (Auto) Lymph # (Auto) [place] # (Auto) Eos # (Auto) Baso # (Auto) WBC Differential Differential Comment PT INR APTT Sodium Potassium Chloride Carbon Dioxide Anion Gap BUN Creatinine Estimated GFR POC Glucose 176 H Random Glucose Lactic Acid Calcium Total Bilirubin AST ALT Alkaline Phosphatase Total Creatine Kinase Troponin I Total Protein Albumin Urine Color Danielle Urine Clarity Hazy H Urine pH 5.0 Ur Specific [place] 1.015 Urine Protein Negative Urine Glucose (UA) Negative Urine Ketones Negative Urine Occult Blood Small H Urine Nitrate Negative Urine Bilirubin Negative Urine Urobilinogen 4 or greater Ur Leukocyte Esterase Negative Urine RBC 1 Urine WBC 2 Ur Squamous Epith Cells 1 Urine Bacteria Rare H Hyaline Casts 34 Urine Mucus Few H Micro UA Comment Cath-culture ind Ur Microscopic Review Not Reportable Urine Culture Comments Cath-cult indicated Urine Opiates Screen Neg Ur Barbiturates Screen Neg Ur Amphetamines Screen Neg U Benzodiazepines Scrn Neg Urine Cocaine Screen Neg U Cannabinoids Screen Neg Serum Alcohol 12/02/17 14:33 WBC RBC Hgb Hct MCV MCH MCHC RDW Plt Count MPV Neut % (Auto) Lymph % (Auto) [place] % (Auto) Eos % (Auto) Baso % (Auto) Neut # (Auto) Lymph # (Auto) [place] # (Auto) Eos # (Auto) Baso # (Auto) WBC Differential Differential Comment PT INR APTT Sodium Potassium Chloride Carbon Dioxide Anion Gap BUN Creatinine Estimated GFR POC Glucose Random Glucose Lactic Acid 3.0 H Calcium Total Bilirubin AST ALT Alkaline Phosphatase Total Creatine Kinase Troponin I Total Protein Albumin Urine Color Urine Clarity Urine pH Ur Specific [place] Urine Protein Urine Glucose (UA) Urine Ketones Urine Occult Blood Urine Nitrate Urine Bilirubin Urine Urobilinogen Ur Leukocyte Esterase Urine RBC Urine WBC Ur Squamous Epith Cells Urine Bacteria Hyaline Casts Urine Mucus Micro UA Comment Ur Microscopic Review Urine Culture Comments Urine Opiates Screen Ur Barbiturates Screen Ur Amphetamines Screen U Benzodiazepines Scrn Urine Cocaine Screen U Cannabinoids Screen Serum Alcohol - Imaging Impressions Chest X-Ray 12/02/17 11:24 CONCLUSION: No acute intrathoracic disease. Head CT 12/02/17 11:24 CONCLUSION: 1. Negative noncontrast head CT. . Hip X-Ray 12/02/17 11:34 CONCLUSION: 1. No acute fracture or joint dislocation. 2. Mild to moderate degenerative arthritis. Lumbar Spine CT 12/02/17 12:32 CONCLUSION: 1. Mild annular disc bulges at the L1-2 and L3-4 levels with visualized protrusion. Abdomen/Pelvis CT 12/02/17 12:59 CONCLUSION: 1. Status post cholecystectomy. 2. A few scattered diverticula along the sigmoid colon without inflammatory changes. 3. Otherwise, unremarkable exam. Caprini VTE Risk Assessment Caprini VTE Risk Assessment: Moderate/High Risk (score >= 2) Caprini Risk Assessment Model: Point Value = 1 Point Value = 2 Point Value = 3 Point Value = 5 Age 41-60 Minor surgery BMI > 25 kg/m2 Swollen legs Varicose veins or History of unexplained or recurrent spontaneous Oral contraceptives or hormone replacement Sepsis (< 1 month) Serious lung disease, including pneumonia (< 1 month) Abnormal pulmonary function Acute myocardial infarction Congestive heart failure (< 1 month) History of inflammatory bowel disease Medical patient at bed rest Age 61-74 Arthroscopic surgery Major open surgery (> 45 min) Laparoscopic surgery (> 45 min) Malignancy Confined to bed (> 72 hours) Immobilizing plaster cast Central venous access Age >= 75 History of VTE Family history of VTE Factor V Leiden Prothrombin [id number] Lupus anticoagulant Anticardiolipin antibodies Elevated serum homocysteine Heparin-induced thrombocytopenia Other congenital or acquired thrombophilia Stroke (< 1 month) Elective arthroplasty Hip, pelvis, or leg fracture Acute spinal cord injury (< 1 month) Prophylaxis Regimen: Total Risk Factor Score Risk Level Prophylaxis Regimen 0-1 Low Early ambulation 2 Moderate Order ONE of the following: *Sequential Compression Device (SCD) *Heparin 5000 units SQ BID 3-4 Higher Order ONE of the following medications: *Heparin 5000 units SQ TID *Enoxaparin/Lovenox 40 mg SQ daily (WT < 150 kg, CrCl > 30 mL/min) *Enoxaparin/Lovenox 30 mg SQ daily (WT < 150 kg, CrCl > 10-29 mL/min) *Enoxaparin/Lovenox 30 mg SQ BID (WT < 150 kg, CrCl > 30 mL/min) AND/OR *Sequential Compression Device (SCD) 5 or more Highest Order ONE of the following medications: *Heparin 5000 units SQ TID (Preferred with Epidurals) *Enoxaparin/Lovenox 40 mg SQ daily (WT < 150 kg, CrCl > 30 mL/min) *Enoxaparin/Lovenox 30 mg SQ daily (WT < 150 kg, CrCl > 10-29 mL/min) *Enoxaparin/Lovenox 30 mg SQ BID (WT < 150 kg, CrCl > 30 mL/min) AND *Sequential Compression Device (SCD) Assessment and Plan - Plan Possible metabolic/toxic encephalopathy Lactic acidosis on admission LA 4.3 Metabolic acidosis with elevated anion gap 21 Severe hypokalemia Elevated bilirubin Transaminitis with AST at 72 Acute kidney injury, creatinine 2.2 however, unknown baseline Urinary tract infection Patient received CT scan of the head on admission, results discussed with ER physician, no acute changes Urine toxicology reviewed, normal findings Neurology and Psych consulted Neuro checks, seizure precautions, EEG ordered, telemetry monitoring, CIWA protocol Cefepime received in the ER, continue rocephin iv for UTI, blood cultures and urine cultures pending, follow results Check lipase. Check CBC, CMP, LA, Mg, Phosp, B12. Monitor labs until lactic acid is back to normal and anion gap closes Start IVF, D5W-1/2NS + KCL 20 mEq, replete electrolytes as needed
[2017-12-02] MEDS: Multivitamin/Minerals Therapeutic Tablet PO SCH (16:27)
[2017-12-02] MEDS: Folic Acid 1 MG Tablet PO SCH (16:27)
[2017-12-02] MEDS: KCL 20 mEq/D5W/NaCl 0.45% Inj 1,000 ML IV.CONT SCH (16:28)
--- NOTE | 2017-12-02 17:02 | P.CONNEU ---
History of Present Illness Service: Neurology Primary Care Provider: UNKNOWN Chief Complaint: altered mental status History of Present Illness: Male admitted for mental status changes found down. Time of onset unknown. Limited history from patient medical chart reviewed. Noted be quite hypertensive in the ER. Noted to be in renal failure CT brain scan negative for any acute lesion. 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 / EMT - Medical / Surgical Hx Neg / Unobtainable Medical Problems Denied: Unable to Obtain - Tobacco History Smoking Status: Unknown if ever smoked - Alcohol History How Often Do You Have a Drink Containing Alcohol: Unable to Obtain - Substance Use History Substance History: Unable to Obtain - Travel History Recent Travel in the [place] Within the Last 8 Weeks: No Recent Travel Out of the Country Within the Last 8 Weeks: No - Immunization History Tetanus Immunization: Unable to Assess Medications and Allergies Active Medications: Active Medications Acetaminophen (Tylenol) 650 mg PO Q4H PRN PRN Reason: Temp > 100.4 Al Hydroxide/Mg Hydroxide (Milk Of [place] Peripheralsharvey Liq) 30 ml PO Q12H PRN PRN Reason: Mild Constipation Bisacodyl (Dulcolax Supp) 10 mg RECTAL DAILY PRN PRN Reason: SEVERE CONSITIPATION Flumazenil (Romazecon Inj) 0.2 mg IV.PUSH Q1M PRN PRN Reason: OVERSEDATION Folic Acid (Folic Acid) 1 mg PO DAILY ON LICENSE OF [facility] Stop: 12/07/17 15:29 Last Admin: 12/02/17 16:27 Dose: 1 mg Haloperidol Lactate (Haldol Inj) 1 mg IV.PUSH Q15M PRN PRN Reason: for severe agitation Sodium Chloride (Ns Inj) 1,000 mls @ 0 mls/hr IV.SIG BOLUS ON LICENSE OF [facility] Last Infusion: 12/02/17 13:00 Dose: Infused Potassium Chloride (Kcl 20 Meq Premix Inj) 20 meq in 100 mls @ 50 mls/hr IV.SIG Q2H ALEXX Stop: 12/02/17 16:59 Last Admin: 12/02/17 16:30 Dose: 100 mls/hr Potassium Chloride/Dextrose/Sod Cl (D5w/1/2ns + Kcl 20 Meq Inj) 1,000 mls @ 100 mls/hr IV.CONT .Q10H ON LICENSE OF [facility] Last Admin: 12/02/17 16:28 Dose: 100 mls/hr Ceftriaxone Sodium 1,000 mg/ (Sodium Chloride) 100 mls @ 200 mls/hr IV.SIG Q24H ON LICENSE OF [facility] Last Admin: 12/02/17 16:32 Dose: 200 mls/hr Potassium Chloride (Kcl 20 Meq Premix Inj) 20 meq in 100 mls @ 50 mls/hr IV.SIG Q2H ALEXX Stop: 12/02/17 19:44 Lactulose (Lactulose Liq) 30 ml PO DAILY PRN PRN Reason: SEVERE CONSITIPATION Lorazepam (Ativan) 1 mg PO Q4H PRN PRN Reason: for CIWA 8-10 Lorazepam (Ativan Inj) 2 mg IV.PUSH Q2H PRN PRN Reason: for CIWA 11-14 Lorazepam (Ativan Inj) 2 mg IV.PUSH Q1H PRN PRN Reason: for CIWA 15-20 Lorazepam (Ativan Inj) 2 mg IV.PUSH Q15M PRN PRN Reason: for CIWA > 20 Lorazepam (Ativan Inj) 1 mg IV.PUSH Q4H PRN PRN Reason: for CIWA 8-10 Lorazepam (Ativan) 2 mg PO Q2H PRN PRN Reason: for CIWA 11-14 Multivitamins/Minerals (Theragran-M) 1 tab PO DAILY ON LICENSE OF [facility] Stop: 12/07/17 15:29 Last Admin: 12/02/17 16:27 Dose: 1 tab Ondansetron HCl (Zofran Inj) 4 mg IV.PUSH Q6H PRN PRN Reason: NAUSEA OR VOMITING Pantoprazole Sodium (Protonix) 40 mg PO DAILY ON LICENSE OF [facility] Last Admin: 12/02/17 16:26 Dose: 40 mg Senna/Docusate Sodium ([place]-Colace) 1 tab PO BID ON LICENSE OF [facility] Sennosides (Senokot) 17.2 mg PO Q12H PRN PRN Reason: Moderate Constipation Thiamine HCl (Vitamin B1) 100 mg PO DAILY ON LICENSE OF [facility] Last Admin: 12/02/17 16:31 Dose: 100 mg Allergies Allergy/AdvReac Type Severity Reaction Status Date / Time No Known Allergies Allergy Verified 12/02/17 11:49 Home Medications Medication Instructions Recorded Confirmed Type Unable to Obtain Home Meds 12/02/17 12/02/17 History Exam Vital signs: Vital Signs 12/02/17 11:22 12/02/17 11:50 12/02/17 12:30 Temperature 94 F L Pulse Rate 83 85 Respiratory Rate 15 16 Blood Pressure 170/118 H 168/110 H Pulse Oximetry 100 99 97 12/02/17 14:42 Temperature 95.4 F L Pulse Rate 80 Respiratory Rate 16 Blood Pressure 144/99 H Pulse Oximetry 100 Intake & Output 12/01/17 12/02/17 12/02/17 18:59 06:59 18:59 Intake Total 1200 / 1200 Balance 1200 / 1200 Weight 77.111 kg Intake: IV 1200 / 1200 Maxipime Inj 2,000 MG In NS Inj 100 / 100 100 ML @ 200 mls/hr IV.SIG ONCE ONE Rx#:[id number] KCl 20 mEq Premix Inj 20 meq In 100 / 100 100 ml @ 50 mls/hr IV.SIG Q2H ALEXX Rx#:[id number] NS Inj 1,000 ML @ Wide Open IV. 1000 / 1000 SIG BOLUS ALEXX Rx#:[id number] Narrative: GENERAL: in NAD, disheveled appearance SKIN: Warm and dry. HEAD: Atraumatic. Normocephalic. EYES: Pupils equal and round. No scleral icterus. ENT: No nasal bleeding or discharge. Mucous membranes pink and moist. NECK: Trachea midline. No JVD. CARDIOVASCULAR: Regular rate and rhythm. RESPIRATORY: No accessory muscle use. GASTROINTESTINAL: Abdomen soft, non-tender, nondistended. MUSCULOSKELETAL: Extremities without clubbing, cyanosis, or edema. No obvious deformities. NEUROLOGICAL: Awake alert, follow occasional simple motor requests, and attentive, reduced visual salas of the left, no facial asymmetry OU 3 2 mm bilaterally, localizes with both upper and lower extremities, neck appears to be supple no involuntary movements plantarflex response no clonus PSYCHIATRIC: Confused - Constitutional no acute distress Results - Labs CBC & Chem 7: 12/02/17 11:25 12/02/17 11:25 Labs: Laboratory Results - last 24 hr 12/02/17 12/02/17 12/02/17 11:25 11:25 11:25 WBC 8.9 RBC 4.38 L Hgb 14.5 Hct 42.7 MCV 97.5 MCH 33.1 MCHC 34.0 RDW 13.6 Plt Count 129 L MPV 10.8 Neut % (Auto) 80.6 H Lymph % (Auto) 10.8 [place] % (Auto) 8.2 H Eos % (Auto) 0.1 Baso % (Auto) 0.3 Neut # (Auto) 7.2 Lymph # (Auto) 1.0 [place] # (Auto) 0.7 Eos # (Auto) 0.0 Baso # (Auto) 0.0 WBC Differential . Differential Comment Auto diff final PT 11.5 INR 1.1 APTT 23.7 L Sodium 145 Potassium 2.4 L* Chloride 97 L Carbon Dioxide 27.5 Anion Gap 21 H BUN 91 H Creatinine 2.22 H Estimated GFR 26 L POC Glucose Random Glucose 146 H Lactic Acid Calcium 9.0 Total Bilirubin 2.3 H AST 72 H ALT 31 Alkaline Phosphatase 66 Total Creatine Kinase Troponin I Less than 0.02 L Total Protein 7.0 Albumin 3.0 L Urine Color Urine Clarity Urine pH Ur Specific [place] Urine Protein Urine Glucose (UA) Urine Ketones Urine Occult Blood Urine Nitrate Urine Bilirubin Urine Urobilinogen Ur Leukocyte Esterase Urine RBC Urine WBC Ur Squamous Epith Cells Urine Bacteria Hyaline Casts Urine Mucus Micro UA Comment Ur Microscopic Review Urine Culture Comments Urine Opiates Screen Ur Barbiturates Screen Ur Amphetamines Screen U Benzodiazepines Scrn Urine Cocaine Screen U Cannabinoids Screen Serum Alcohol 12/02/17 12/02/17 12/02/17 11:25 11:25 11:25 WBC RBC Hgb Hct MCV MCH MCHC RDW Plt Count MPV Neut % (Auto) Lymph % (Auto) [place] % (Auto) Eos % (Auto) Baso % (Auto) Neut # (Auto) Lymph # (Auto) [place] # (Auto) Eos # (Auto) Baso # (Auto) WBC Differential Differential Comment PT INR APTT Sodium Potassium Chloride Carbon Dioxide Anion Gap BUN Creatinine Estimated GFR POC Glucose Random Glucose Lactic Acid 4.3 H* Calcium Total Bilirubin AST ALT Alkaline Phosphatase Total Creatine Kinase 131 Troponin I Total Protein Albumin Urine Color Urine Clarity Urine pH Ur Specific [place] Urine Protein Urine Glucose (UA) Urine Ketones Urine Occult Blood Urine Nitrate Urine Bilirubin Urine Urobilinogen Ur Leukocyte Esterase Urine RBC Urine WBC Ur Squamous Epith Cells Urine Bacteria Hyaline Casts Urine Mucus Micro UA Comment Ur Microscopic Review Urine Culture Comments Urine Opiates Screen Ur Barbiturates Screen Ur Amphetamines Screen U Benzodiazepines Scrn Urine Cocaine Screen U Cannabinoids Screen Serum Alcohol Less than 3 12/02/17 12/02/17 12/02/17 11:38 13:00 13:00 WBC RBC Hgb Hct MCV MCH MCHC RDW Plt Count MPV Neut % (Auto) Lymph % (Auto) [place] % (Auto) Eos % (Auto) Baso % (Auto) Neut # (Auto) Lymph # (Auto) [place] # (Auto) Eos # (Auto) Baso # (Auto) WBC Differential Differential Comment PT INR APTT Sodium Potassium Chloride Carbon Dioxide Anion Gap BUN Creatinine Estimated GFR POC Glucose 176 H Random Glucose Lactic Acid Calcium Total Bilirubin AST ALT Alkaline Phosphatase Total Creatine Kinase Troponin I Total Protein Albumin Urine Color Danielle Urine Clarity Hazy H Urine pH 5.0 Ur Specific [place] 1.015 Urine Protein Negative Urine Glucose (UA) Negative Urine Ketones Negative Urine Occult Blood Small H Urine Nitrate Negative Urine Bilirubin Negative Urine Urobilinogen 4 or greater Ur Leukocyte Esterase Negative Urine RBC 1 Urine WBC 2 Ur Squamous Epith Cells 1 Urine Bacteria Rare H Hyaline Casts 34 Urine Mucus Few H Micro UA Comment Cath-culture ind Ur Microscopic Review Not Reportable Urine Culture Comments Cath-cult indicated Urine Opiates Screen Neg Ur Barbiturates Screen Neg Ur Amphetamines Screen Neg U Benzodiazepines Scrn Neg Urine Cocaine Screen Neg U Cannabinoids Screen Neg Serum Alcohol 12/02/17 14:33 WBC RBC Hgb Hct MCV MCH MCHC RDW Plt Count MPV Neut % (Auto) Lymph % (Auto) [place] % (Auto) Eos % (Auto) Baso % (Auto) Neut # (Auto) Lymph # (Auto) [place] # (Auto) Eos # (Auto) Baso # (Auto) WBC Differential Differential Comment PT INR APTT Sodium Potassium Chloride Carbon Dioxide Anion Gap BUN Creatinine Estimated GFR POC Glucose Random Glucose Lactic Acid 3.0 H Calcium Total Bilirubin AST ALT Alkaline Phosphatase Total Creatine Kinase Troponin I Total Protein Albumin Urine Color Urine Clarity Urine pH Ur Specific [place] Urine Protein Urine Glucose (UA) Urine Ketones Urine Occult Blood Urine Nitrate Urine Bilirubin Urine Urobilinogen Ur Leukocyte Esterase Urine RBC Urine WBC Ur Squamous Epith Cells Urine Bacteria Hyaline Casts Urine Mucus Micro UA Comment Ur Microscopic Review Urine Culture Comments Urine Opiates Screen Ur Barbiturates Screen Ur Amphetamines Screen U Benzodiazepines Scrn Urine Cocaine Screen U Cannabinoids Screen Serum Alcohol - Imaging Impressions Chest X-Ray 12/02/17 11:24 CONCLUSION: No acute intrathoracic disease. Head CT 12/02/17 11:24 CONCLUSION: 1. Negative noncontrast head CT. . Hip X-Ray 12/02/17 11:34 CONCLUSION: 1. No acute fracture or joint dislocation. 2. Mild to moderate degenerative arthritis. Lumbar Spine CT 12/02/17 12:32 CONCLUSION: 1. Mild annular disc bulges at the L1-2 and L3-4 levels with visualized protrusion. Abdomen/Pelvis CT 12/02/17 12:59 CONCLUSION: 1. Status post cholecystectomy. 2. A few scattered diverticula along the sigmoid colon without inflammatory changes. 3. Otherwise, unremarkable exam. Review/Management - Diagnosis (1) Acute metabolic encephalopathy Code(s): G93.41 - Metabolic encephalopathy Status: Acute Current Visit: Yes (2) Hypertensive urgency Code(s): I16.0 - Hypertensive urgency Status: Acute Current Visit: Yes (3) Acute kidney injury Code(s): N17.9 - Acute kidney failure, unspecified Status: Acute Current Visit: Yes - Review/Management Plan: Exclude an infarct; reduced visual field to the left exclude an occipital infarct. In addition noted be quite hypertensive and in renal failure on admission Unknown if any history of toxic ingestion or EtOH withdrawal Urine drug screen negative. Ethanol level negative Recommendation EEG MRI brain Follow labs Blood pressure control IV thiamine Follow exam
[2017-12-02 17:27] LABS: Chol/HDL Ratio 5.22 Ratio; HDL Cholesterol 26.8 mg/dL (40.0-60.0)
[2017-12-02 18:31] LABS: Magnesium 2.1 mg/dL (1.5-2.5)
[2017-12-02 18:34] LABS: Alanine Aminotransferase 26 U/L (12-78); Albumin 2.6 g/dL (3.4-5.0); Anion Gap 13 meq/L (5-15); Aspartate Aminotransferase 59 U/L (15-37); Blood Urea Nitrogen 80 mg/dL (7-18); Calcium 8.1 mg/dL (8.5-10.1); Carbon Dioxide 22.6 meq/L (21.0-32.0); Chloride 110 meq/L (98-107); Glomerular Filtration Rate 42 mL/min (>89); Glucose,Random 98 mg/dL (74-106); Lipase 127 U/L (73-393); Phosphorus 4.3 mg/dL (2.5-4.9); Sodium 146 meq/L (136-145)
[2017-12-02 18:40] LABS: Potassium 2.8 meq/L (3.5-5.1)
[2017-12-02 18:43] LABS: Alkaline Phosphatase 57 U/L (45-117); Total Protein 6.1 g/dL (6.4-8.2)
[2017-12-02] MEDS: Senna/Docusate Sodium 8.6/50 MG Tablet PO SCH (21:27)
[2017-12-02 21:43] LABS: Hemoglobin A1c 5.4 % (4.3-6.0)
[2017-12-03] MEDS: KCL 20 mEq/D5W/NaCl 0.45% Inj 1,000 ML IV.CONT SCH ×3 (05:23→23:43)
[2017-12-03 08:00] LABS: Baso % (Auto) 0.4 % (0.0-2.0); Eos % (Auto) 0.4 % (0.0-4.0); Hematocrit 35.3 % (39.0-51.0); Hemoglobin 12.2 gm/dL (13.0-17.0); Lymph # (Auto) 0.9 th/mm3 (1.0-4.8); Lymph % (Auto) 12.6 % (9.0-44.0); Mean Corpuscular HGB Conc 34.5 % (32.0-36.0); Mean Corpuscular Hemoglobin 33.8 pg (27.0-34.0); Mean Corpuscular Volume 98.1 fL (80.0-100.0); Mean Platelet Volume 10.2 fL (7.0-11.0); Mono # (Auto) 0.5 th/mm3 (0.0-0.9); Mono % (Auto) 7.1 % (0.0-8.0); Neut # (Auto) 5.4 th/mm3 (1.8-7.7); Neut % (Auto) 79.5 % (16.0-70.0); Platelet Count 99 th/mm3 (150-450); Red Cell Distribution Width 13.3 % (11.6-17.2); White Blood Count 6.8 th/mm3 (4.0-11.0)
[2017-12-03 08:07] LABS: Albumin 2.4 g/dL (3.4-5.0); Anion Gap 12 meq/L (5-15); Aspartate Aminotransferase 50 U/L (15-37); Blood Urea Nitrogen 74 mg/dL (7-18); Calcium 8.1 mg/dL (8.5-10.1); Carbon Dioxide 23.4 meq/L (21.0-32.0); Chloride 113 meq/L (98-107); Glomerular Filtration Rate 44 mL/min (>89); Glucose,Random 110 mg/dL (74-106); Sodium 148 meq/L (136-145)
[2017-12-03 08:08] LABS: Alanine Aminotransferase 22 U/L (12-78)
[2017-12-03 08:11] LABS: Alkaline Phosphatase 51 U/L (45-117); Total Protein 5.7 g/dL (6.4-8.2)
[2017-12-03 09:12] LABS: Potassium 2.8 meq/L (3.5-5.1)
[2017-12-03] MEDS: Folic Acid 1 MG Tablet PO SCH (09:24)
[2017-12-03] MEDS: Multivitamin/Minerals Therapeutic Tablet PO SCH (09:24)
[2017-12-03] MEDS: Senna/Docusate Sodium 8.6/50 MG Tablet PO SCH ×2 (09:24→21:11)
--- NOTE | 2017-12-03 11:51 | P.PNIM ---
Subjective Interval history: Patient is disoriented. History difficult secondary to faint voice and confusion. He denies using illicit drugs, but appears to endorse some kind of alcohol Physical Exam Vital signs: Vital Signs 12/02/17 11:50 12/02/17 12:30 12/02/17 14:42 Temperature 95.4 F L Pulse Rate 85 80 Respiratory Rate 16 16 Blood Pressure 168/110 H 144/99 H Pulse Oximetry 99 97 100 12/02/17 16:00 12/02/17 20:00 12/03/17 00:00 Temperature 97.3 F L 97.4 F L Pulse Rate 80 81 81 Respiratory Rate 19 18 18 Blood Pressure 167/98 H 107/76 142/85 H Pulse Oximetry 97 93 L 98 12/03/17 04:00 12/03/17 08:00 Temperature 97.8 F 98.4 F Pulse Rate 90 70 Respiratory Rate 18 22 Blood Pressure 124/80 126/68 Pulse Oximetry 96 97 Intake & Output 12/02/17 12/03/17 12/03/17 18:59 06:59 18:59 Intake Total 2500 / 2500 893 / 893 Balance 2500 / 2500 893 / 893 Weight 68.1 kg 68.7 kg Intake: IV 2500 / 2500 173 / 173 D5W/1/2NS + KCL 20 mEq Inj 1, 1000 / 1000 73 / 73 000 ML @ 100 mls/hr IV.CONT . Q10H [facility] Rx#:[id number] Maxipime Inj 2,000 MG In NS Inj 100 / 100 100 ML @ 200 mls/hr IV.SIG ONCE ONE Rx#:[id number] KCl 20 mEq Premix Inj 20 meq In 300 / 300 100 / 100 100 ml @ 50 mls/hr IV.SIG Q2H [facility] Rx#:[id number] NS Inj 1,000 ML @ Wide Open IV. 1000 / 1000 SIG BOLUS [facility] Rx#:[id number] Rocephin Inj 1,000 MG In NS Inj 100 / 100 100 ML @ 200 mls/hr IV.SIG Q24H [facility] Rx#:[id number] Oral 720 / 720 Other: # Urine Diapers 4 Date of Last Bowel Movement 12/02/17 # Bowel Movements 0 Narrative: GENERAL: Patient sitting up in bed. Appears comfortable. Disoriented and disheveled. SKIN: Warm and dry. HEAD: Normocephalic. EYES: No scleral icterus. No injection or drainage. NECK: Supple, trachea midline. No JVD . CARDIOVASCULAR: Regular rate and rhythm without murmurs, gallops, or rubs. RESPIRATORY: Breath sounds equal bilaterally. No accessory muscle use. GASTROINTESTINAL: Abdomen soft, non-tender, nondistended. MUSCULOSKELETAL: No cyanosis, or edema. BACK: Nontender without obvious deformity. No CVA tenderness. Results - Labs CBC & Chem 7: 12/03/17 06:29 12/03/17 06:29 Laboratory Results - last 24 hr 12/02/17 12/02/17 12/02/17 11:25 11:25 11:25 WBC 8.9 RBC 4.38 L Hgb 14.5 Hct 42.7 MCV 97.5 MCH 33.1 MCHC 34.0 RDW 13.6 Plt Count 129 L MPV 10.8 Prelim Diff (Auto) Neut % (Auto) 80.6 H Lymph % (Auto) 10.8 [place] % (Auto) 8.2 H Eos % (Auto) 0.1 Baso % (Auto) 0.3 Neut # (Auto) 7.2 Lymph # (Auto) 1.0 [place] # (Auto) 0.7 Eos # (Auto) 0.0 Baso # (Auto) 0.0 WBC Differential . Diff Scan Differential Comment Auto diff final Platelet Estimate Platelet Morphology ESR PT 11.5 INR 1.1 APTT 23.7 L Sodium 145 Potassium 2.4 L* Chloride 97 L Carbon Dioxide 27.5 Anion Gap 21 H BUN 91 H Creatinine 2.22 H Estimated GFR 26 L POC Glucose Random Glucose 146 H Hemoglobin A1c Lactic Acid Calcium 9.0 Phosphorus Magnesium Total Bilirubin 2.3 H AST 72 H ALT 31 Alkaline Phosphatase 66 Ammonia Total Creatine Kinase Troponin I Less than 0.02 L C-Reactive Protein Total Protein 7.0 Albumin 3.0 L Triglycerides Cholesterol LDL Cholesterol, Calc HDL Cholesterol Cholesterol/HDL Ratio Lipase Vitamin B12 TSH Urine Color Urine Clarity Urine pH Ur Specific [place] Urine Protein Urine Glucose (UA) Urine Ketones Urine Occult Blood Urine Nitrate Urine Bilirubin Urine Urobilinogen Ur Leukocyte Esterase Urine RBC Urine WBC Ur Squamous Epith Cells Urine Bacteria Hyaline Casts Urine Mucus Micro UA Comment Ur Microscopic Review Urine Culture Comments Urine Opiates Screen Ur Barbiturates Screen Ur Amphetamines Screen U Benzodiazepines Scrn Urine Cocaine Screen U Cannabinoids Screen Serum Alcohol 12/02/17 12/02/17 12/02/17 11:25 11:25 11:25 WBC RBC Hgb Hct MCV MCH MCHC RDW Plt Count MPV Prelim Diff (Auto) Neut % (Auto) Lymph % (Auto) [place] % (Auto) Eos % (Auto) Baso % (Auto) Neut # (Auto) Lymph # (Auto) [place] # (Auto) Eos # (Auto) Baso # (Auto) WBC Differential Diff Scan Differential Comment Platelet Estimate Platelet Morphology ESR PT INR APTT Sodium Potassium Chloride Carbon Dioxide Anion Gap BUN Creatinine Estimated GFR POC Glucose Random Glucose Hemoglobin A1c Lactic Acid 4.3 H* Calcium Phosphorus Magnesium Total Bilirubin AST ALT Alkaline Phosphatase Ammonia Total Creatine Kinase 131 Troponin I C-Reactive Protein Total Protein Albumin Triglycerides Cholesterol LDL Cholesterol, Calc HDL Cholesterol Cholesterol/HDL Ratio Lipase Vitamin B12 TSH Urine Color Urine Clarity Urine pH Ur Specific [place] Urine Protein Urine Glucose (UA) Urine Ketones Urine Occult Blood Urine Nitrate Urine Bilirubin Urine Urobilinogen Ur Leukocyte Esterase Urine RBC Urine WBC Ur Squamous Epith Cells Urine Bacteria Hyaline Casts Urine Mucus Micro UA Comment Ur Microscopic Review Urine Culture Comments Urine Opiates Screen Ur Barbiturates Screen Ur Amphetamines Screen U Benzodiazepines Scrn Urine Cocaine Screen U Cannabinoids Screen Serum Alcohol Less than 3 12/02/17 12/02/17 12/02/17 11:25 11:25 11:25 WBC RBC Hgb Hct MCV MCH MCHC RDW Plt Count MPV Prelim Diff (Auto) Neut % (Auto) Lymph % (Auto) [place] % (Auto) Eos % (Auto) Baso % (Auto) Neut # (Auto) Lymph # (Auto) [place] # (Auto) Eos # (Auto) Baso # (Auto) WBC Differential Diff Scan Differential Comment Platelet Estimate Platelet Morphology ESR 35 H PT INR APTT Sodium Potassium Chloride Carbon Dioxide Anion Gap BUN Creatinine Estimated GFR POC Glucose Random Glucose Hemoglobin A1c 5.4 Lactic Acid Calcium Phosphorus Magnesium Total Bilirubin AST ALT Alkaline Phosphatase Ammonia Total Creatine Kinase Troponin I C-Reactive Protein Total Protein Albumin Triglycerides 159 H Cholesterol 140 LDL Cholesterol, Calc 81 HDL Cholesterol 26.8 L Cholesterol/HDL Ratio 5.22 Lipase Vitamin B12 TSH Urine Color Urine Clarity Urine pH Ur Specific [place] Urine Protein Urine Glucose (UA) Urine Ketones Urine Occult Blood Urine Nitrate Urine Bilirubin Urine Urobilinogen Ur Leukocyte Esterase Urine RBC Urine WBC Ur Squamous Epith Cells Urine Bacteria Hyaline Casts Urine Mucus Micro UA Comment Ur Microscopic Review Urine Culture Comments Urine Opiates Screen Ur Barbiturates Screen Ur Amphetamines Screen U Benzodiazepines Scrn Urine Cocaine Screen U Cannabinoids Screen Serum Alcohol 12/02/17 12/02/17 12/02/17 13:00 13:00 14:33 WBC RBC Hgb Hct MCV MCH MCHC RDW Plt Count MPV Prelim Diff (Auto) Neut % (Auto) Lymph % (Auto) [place] % (Auto) Eos % (Auto) Baso % (Auto) Neut # (Auto) Lymph # (Auto) [place] # (Auto) Eos # (Auto) Baso # (Auto) WBC Differential Diff Scan Differential Comment Platelet Estimate Platelet Morphology ESR PT INR APTT Sodium Potassium Chloride Carbon Dioxide Anion Gap BUN Creatinine Estimated GFR POC Glucose Random Glucose Hemoglobin A1c Lactic Acid 3.0 H Calcium Phosphorus Magnesium Total Bilirubin AST ALT Alkaline Phosphatase Ammonia Total Creatine Kinase Troponin I C-Reactive Protein Total Protein Albumin Triglycerides Cholesterol LDL Cholesterol, Calc HDL Cholesterol Cholesterol/HDL Ratio Lipase Vitamin B12 TSH Urine Color Danielle Urine Clarity Hazy H Urine pH 5.0 Ur Specific [place] 1.015 Urine Protein Negative Urine Glucose (UA) Negative Urine Ketones Negative Urine Occult Blood Small H Urine Nitrate Negative Urine Bilirubin Negative Urine Urobilinogen 4 or greater Ur Leukocyte Esterase Negative Urine RBC 1 Urine WBC 2 Ur Squamous Epith Cells 1 Urine Bacteria Rare H Hyaline Casts 34 Urine Mucus Few H Micro UA Comment Cath-culture ind Ur Microscopic Review Not Reportable Urine Culture Comments Cath-cult indicated Urine Opiates Screen Neg Ur Barbiturates Screen Neg Ur Amphetamines Screen Neg U Benzodiazepines Scrn Neg Urine Cocaine Screen Neg U Cannabinoids Screen Neg Serum Alcohol 12/02/17 12/02/17 12/02/17 17:50 17:50 17:50 WBC RBC Hgb Hct MCV MCH MCHC RDW Plt Count MPV Prelim Diff (Auto) Neut % (Auto) Lymph % (Auto) [place] % (Auto) Eos % (Auto) Baso % (Auto) Neut # (Auto) Lymph # (Auto) [place] # (Auto) Eos # (Auto) Baso # (Auto) WBC Differential Diff Scan Differential Comment Platelet Estimate Platelet Morphology ESR PT INR APTT Sodium Potassium Chloride Carbon Dioxide Anion Gap BUN Creatinine Estimated GFR POC Glucose Random Glucose Hemoglobin A1c Lactic Acid 2.7 H Calcium Phosphorus Magnesium 2.1 Total Bilirubin AST ALT Alkaline Phosphatase Ammonia Total Creatine Kinase Troponin I C-Reactive Protein Total Protein Albumin Triglycerides Cholesterol LDL Cholesterol, Calc HDL Cholesterol Cholesterol/HDL Ratio Lipase Vitamin B12 1607 H TSH 0.627 Urine Color Urine Clarity Urine pH Ur Specific [place] Urine Protein Urine Glucose (UA) Urine Ketones Urine Occult Blood Urine Nitrate Urine Bilirubin Urine Urobilinogen Ur Leukocyte Esterase Urine RBC Urine WBC Ur Squamous Epith Cells Urine Bacteria Hyaline Casts Urine Mucus Micro UA Comment Ur Microscopic Review Urine Culture Comments Urine Opiates Screen Ur Barbiturates Screen Ur Amphetamines Screen U Benzodiazepines Scrn Urine Cocaine Screen U Cannabinoids Screen Serum Alcohol 12/02/17 12/02/17 12/02/17 17:50 17:50 17:50 WBC RBC Hgb Hct MCV MCH MCHC RDW Plt Count MPV Prelim Diff (Auto) Neut % (Auto) Lymph % (Auto) [place] % (Auto) Eos % (Auto) Baso % (Auto) Neut # (Auto) Lymph # (Auto) [place] # (Auto) Eos # (Auto) Baso # (Auto) WBC Differential Diff Scan Differential Comment Platelet Estimate Platelet Morphology ESR PT INR APTT Sodium 146 H Potassium 2.8 L* Chloride 110 H D Carbon Dioxide 22.6 Anion Gap 13 BUN 80 H Creatinine 1.44 H Estimated GFR 42 L POC Glucose Random Glucose 98 Hemoglobin A1c Lactic Acid Calcium 8.1 L D Phosphorus 4.3 Magnesium Total Bilirubin 1.9 H AST 59 H ALT 26 Alkaline Phosphatase 57 Ammonia 25 Total Creatine Kinase Troponin I C-Reactive Protein 6.20 H Total Protein 6.1 L D Albumin 2.6 L Triglycerides Cholesterol LDL Cholesterol, Calc HDL Cholesterol Cholesterol/HDL Ratio Lipase 127 Vitamin B12 TSH Urine Color Urine Clarity Urine pH Ur Specific [place] Urine Protein Urine Glucose (UA) Urine Ketones Urine Occult Blood Urine Nitrate Urine Bilirubin Urine Urobilinogen Ur Leukocyte Esterase Urine RBC Urine WBC Ur Squamous Epith Cells Urine Bacteria Hyaline Casts Urine Mucus Micro UA Comment Ur Microscopic Review Urine Culture Comments Urine Opiates Screen Ur Barbiturates Screen Ur Amphetamines Screen U Benzodiazepines Scrn Urine Cocaine Screen U Cannabinoids Screen Serum Alcohol 12/02/17 12/03/17 12/03/17 21:04 00:11 06:29 WBC 6.8 RBC 3.60 L Hgb 12.2 L D Hct 35.3 L MCV 98.1 MCH 33.8 MCHC 34.5 RDW 13.3 Plt Count 99 L MPV 10.2 Prelim Diff (Auto) Slide review pending Neut % (Auto) 79.5 H Lymph % (Auto) 12.6 [place] % (Auto) 7.1 Eos % (Auto) 0.4 Baso % (Auto) 0.4 Neut # (Auto) 5.4 Lymph # (Auto) 0.9 L [place] # (Auto) 0.5 Eos # (Auto) 0.0 Baso # (Auto) 0.0 WBC Differential . Diff Scan Auto diff confirmed Differential Comment . Platelet Estimate Low L Platelet Morphology Enlarged H ESR PT INR APTT Sodium Potassium Chloride Carbon Dioxide Anion Gap BUN Creatinine Estimated GFR POC Glucose 138 H Random Glucose Hemoglobin A1c Lactic Acid 2.7 H Calcium Phosphorus Magnesium Total Bilirubin AST ALT Alkaline Phosphatase Ammonia Total Creatine Kinase Troponin I C-Reactive Protein Total Protein Albumin Triglycerides Cholesterol LDL Cholesterol, Calc HDL Cholesterol Cholesterol/HDL Ratio Lipase Vitamin B12 TSH Urine Color Urine Clarity Urine pH Ur Specific [place] Urine Protein Urine Glucose (UA) Urine Ketones Urine Occult Blood Urine Nitrate Urine Bilirubin Urine Urobilinogen Ur Leukocyte Esterase Urine RBC Urine WBC Ur Squamous Epith Cells Urine Bacteria Hyaline Casts Urine Mucus Micro UA Comment Ur Microscopic Review Urine Culture Comments Urine Opiates Screen Ur Barbiturates Screen Ur Amphetamines Screen U Benzodiazepines Scrn Urine Cocaine Screen U Cannabinoids Screen Serum Alcohol 12/03/17 12/03/17 06:29 09:16 WBC RBC Hgb Hct MCV MCH MCHC RDW Plt Count MPV Prelim Diff (Auto) Neut % (Auto) Lymph % (Auto) [place] % (Auto) Eos % (Auto) Baso % (Auto) Neut # (Auto) Lymph # (Auto) [place] # (Auto) Eos # (Auto) Baso # (Auto) WBC Differential Diff Scan Differential Comment Platelet Estimate Platelet Morphology ESR PT INR APTT Sodium 148 H Potassium 2.8 L* Chloride 113 H Carbon Dioxide 23.4 Anion Gap 12 BUN 74 H Creatinine 1.40 H Estimated GFR 44 L POC Glucose 169 H Random Glucose 110 H Hemoglobin A1c Lactic Acid Calcium 8.1 L Phosphorus Magnesium Total Bilirubin 1.5 H AST 50 H ALT 22 Alkaline Phosphatase 51 Ammonia Total Creatine Kinase Troponin I C-Reactive Protein Total Protein 5.7 L Albumin 2.4 L Triglycerides Cholesterol LDL Cholesterol, Calc HDL Cholesterol Cholesterol/HDL Ratio Lipase Vitamin B12 TSH Urine Color Urine Clarity Urine pH Ur Specific [place] Urine Protein Urine Glucose (UA) Urine Ketones Urine Occult Blood Urine Nitrate Urine Bilirubin Urine Urobilinogen Ur Leukocyte Esterase Urine RBC Urine WBC Ur Squamous Epith Cells Urine Bacteria Hyaline Casts Urine Mucus Micro UA Comment Ur Microscopic Review Urine Culture Comments Urine Opiates Screen Ur Barbiturates Screen Ur Amphetamines Screen U Benzodiazepines Scrn Urine Cocaine Screen U Cannabinoids Screen Serum Alcohol Microbiology 12/02/17 11:26 Blood - Peripheral Aerobic Blood Culture - Preliminary No growth in 1 day 12/02/17 11:26 Blood - Peripheral Anaerobic Blood Culture - Preliminary No growth in 1 day 12/02/17 11:45 Blood - Peripheral Aerobic Blood Culture - Preliminary No growth in 1 day 12/02/17 11:45 Blood - Peripheral Anaerobic Blood Culture - Preliminary No growth in 1 day - Imaging Impressions Chest X-Ray 12/02/17 11:24 CONCLUSION: No acute intrathoracic disease. Head CT 12/02/17 11:24 CONCLUSION: 1. Negative noncontrast head CT. . Hip X-Ray 12/02/17 11:34 CONCLUSION: 1. No acute fracture or joint dislocation. 2. Mild to moderate degenerative arthritis. Lumbar Spine CT 12/02/17 12:32 CONCLUSION: 1. Mild annular disc bulges at the L1-2 and L3-4 levels with visualized protrusion. Abdomen/Pelvis CT 12/02/17 12:59 CONCLUSION: 1. Status post cholecystectomy. 2. A few scattered diverticula along the sigmoid colon without inflammatory changes. 3. Otherwise, unremarkable exam. Assessment and Plan - Plan //Possible metabolic/toxic encephalopathy //Lactic acidosis on admission LA 4.3 //Metabolic acidosis with elevated anion gap 21 //Severe hypokalemia //Elevated bilirubin //Transaminitis with AST at 72 //Acute kidney injury, creatinine 2.2 however, unknown baseline //Urinary tract infection Patient received CT scan of the head on admission, results discussed with ER physician, no acute changes Urine toxicology reviewed, normal findings Neurology and Psych consulted Neuro checks, seizure precautions, EEG ordered, telemetry monitoring, CIWA protocol Cefepime received in the ER, continue rocephin iv for UTI, blood cultures and urine cultures pending, follow results Check lipase. Check CBC, CMP, LA, Mg, Phosp, B12. Monitor labs until lactic acid is back to normal and anion gap closes Start IVF, D5W-1/2NS + KCL 20 mEq, replete electrolytes as needed = /10. Hypokalemia. 2.8. Replace hypernatremia. Continue on half-normal saline. Acute kidney injury improving with IV fluids creatinine 1.4. Continue replacing thiamine. Follow-up EEG and MRI. Do not suspect UTI, however we will follow-up on culture. Lactic acidosis improving to 2.7. Expect to improve with time and appreciate neurology assistance continue IV fluids. Discussed Condition With: patient, nurse Discharge Planning: Pending improvement.
--- NOTE | 2017-12-03 13:51 | P.CONPSY ---
Provisional Diagnosis Admission Date: December 02, 2017 14:55 [facility] Delirium History of Present Illness Service: Medicine Primary Care Provider: UNKNOWN Chief Complaint: altered mental status History of Present Illness: The patient is a 62-year-old man, with unknown psychiatric history, who was brought to the ED by EMS for evaluation of altered mental status. Patient is a poor historian due to AMS, history is obtained from the ED and EMS staff. Patient had not been seen outside of his condo in a day by maintenance workers. The workers called EMS, who found the patient on the ground incontinent of urine and feces with altered mental status. He is unable to answer questions about his name, age, or date of . He was consulted to psychiatry to address potential psychosis. On my psychiatric evaluation I find a patient that is restrained in 2 points, restless, agitated, very disorganized unable to provide any meaningful or significant information for the psychiatric assessment. He does tell me his name is Rigo Baker, he states she is 62, but he is completely disoriented, does not know where he is, does not know the time, does not know the reason he is here. He does not report any pain, any psychiatric or mental concern at the moment. He is admitted in medicine due to: Possible metabolic/toxic encephalopathy Lactic acidosis on admission LA 4.3 Metabolic acidosis with elevated anion gap 21 Severe hypokalemia Elevated bilirubin Transaminitis with AST at 72 Acute kidney injury, creatinine 2.2 however, unknown baseline Urinary tract infection Patient received CT scan of the head on admission, results discussed with ER physician, no acute changes Urine toxicology reviewed, normal findings Neurology and Psych consulted Neuro checks, seizure precautions, EEG ordered, telemetry monitoring, CIWA protocol Cefepime received in the ER, continue rocephin iv for UTI, blood cultures and urine cultures pending, follow results Check lipase. Check CBC, CMP, LA, Mg, Phosp, B12. Monitor labs until lactic acid is back to normal and anion gap closes Start IVF, D5W-1/2NS + KCL 20 mEq, replete electrolytes as needed = 10/10. Hypokalemia. 2.8. Replace hypernatremia. Continue on half-normal saline. Acute kidney injury improving with IV fluids creatinine 1.4. Continue replacing thiamine. Follow-up EEG and MRI. Do not suspect UTI, however we will follow-up on culture. Lactic acidosis improving to 2.7. Expect to improve with time and appreciate neurology assistance continu this time [facility] - History History Provided By: [facility] [employer] / EMT - Medical / Surgical Hx Neg / Unobtainable Medical Problems Denied: Unable to Obtain - Tobacco History Smoking Status: Unknown if ever smoked - Alcohol History How Often Do You Have a Drink Containing Alcohol: Unable to Obtain - Substance Use History Substance History: Unable to Obtain - Travel History Recent Travel in the [place] Within the Last 8 Weeks: No Recent Travel Out of the Country Within the Last 8 Weeks: No - Immunization History Tetanus Immunization: Unable to Assess Medications and Allergies Active Medications: Active Medications Acetaminophen (Tylenol) 650 mg PO Q4H PRN PRN Reason: Temp > 100.4 Al Hydroxide/Mg Hydroxide (Milk Of Magnesia Liq) 30 ml PO Q12H PRN PRN Reason: Mild Constipation Bisacodyl (Dulcolax Supp) 10 mg RECTAL DAILY PRN PRN Reason: SEVERE CONSITIPATION Flumazenil (Romazecon Inj) 0.2 mg IV.PUSH Q1M PRN PRN Reason: OVERSEDATION Folic Acid (Folic Acid) 1 mg PO DAILY [facility] Stop: 12/07/17 15:29 Last Admin: 12/03/17 09:24 Dose: 1 mg Haloperidol Lactate (Haldol Inj) 1 mg IV.PUSH Q15M PRN PRN Reason: for severe agitation Sodium Chloride (Ns Inj) 1,000 mls @ 0 mls/hr IV.SIG BOLUS [facility] Last Infusion: 12/02/17 13:00 Dose: Infused Potassium Chloride/Dextrose/Sod Cl (D5w/1/2ns + Kcl 20 Meq Inj) 1,000 mls @ 100 mls/hr IV.CONT .Q10H [facility] Last Infusion: 12/03/17 06:00 Dose: 100 mls/hr Ceftriaxone Sodium 1,000 mg/ (Sodium Chloride) 100 mls @ 200 mls/hr IV.SIG Q24H [facility] Last Infusion: 12/02/17 16:57 Dose: Infused Potassium Chloride (Kcl 20 Meq Premix Inj) 20 meq in 100 mls @ 50 mls/hr IV.SIG Q2H [facility] Stop: 12/03/17 14:59 Lactulose (Lactulose Liq) 30 ml PO DAILY PRN PRN Reason: SEVERE CONSITIPATION Lorazepam (Ativan) 1 mg PO Q4H PRN PRN Reason: for CIWA 8-10 Lorazepam (Ativan Inj) 2 mg IV.PUSH Q2H PRN PRN Reason: for CIWA 11-14 Lorazepam (Ativan Inj) 2 mg IV.PUSH Q1H PRN PRN Reason: for CIWA 15-20 Lorazepam (Ativan Inj) 2 mg IV.PUSH Q15M PRN PRN Reason: for CIWA > 20 Lorazepam (Ativan Inj) 1 mg IV.PUSH Q4H PRN PRN Reason: for CIWA 8-10 Lorazepam (Ativan) 2 mg PO Q2H PRN PRN Reason: for CIWA 11-14 Multivitamins/Minerals (Theragran-M) 1 tab PO DAILY [facility] Stop: 12/07/17 15:29 Last Admin: 12/03/17 09:24 Dose: 1 tab Ondansetron HCl (Zofran Inj) 4 mg IV.PUSH Q6H PRN PRN Reason: NAUSEA OR VOMITING Pantoprazole Sodium (Protonix) 40 mg PO DAILY [facility] Last Admin: 12/03/17 09:24 Dose: 40 mg Quetiapine Fumarate (Seroquel) 25 mg PO BID [facility] Senna/Docusate Sodium ([place]-Colace) 1 tab PO BID [facility] Last Admin: 12/03/17 09:24 Dose: 1 tab Sennosides (Senokot) 17.2 mg PO Q12H PRN PRN Reason: Moderate Constipation Thiamine HCl (Thiamine Inj) 100 mg IM DAILY [facility] Last Admin: 12/03/17 09:24 Dose: 100 mg Allergies Allergy/AdvReac Type Severity Reaction Status Date / Time No Known Allergies Allergy Verified 12/02/17 11:49 Home Medications Medication Instructions Recorded Confirmed Type Unable to Obtain Home Meds 12/02/17 12/02/17 History Exam Vital signs: Vital Signs 12/02/17 14:42 12/02/17 16:00 12/02/17 20:00 Temperature 95.4 F L 97.3 F L Pulse Rate 80 80 81 Respiratory Rate 16 19 18 Blood Pressure 144/99 H 167/98 H 107/76 Pulse Oximetry 100 97 93 L 12/03/17 00:00 12/03/17 04:00 12/03/17 08:00 Temperature 97.4 F L 97.8 F 98.4 F Pulse Rate 81 90 70 Respiratory Rate 18 18 22 Blood Pressure 142/85 H 124/80 126/68 Pulse Oximetry 98 96 97 Intake & Output 12/02/17 12/03/17 12/03/17 18:59 06:59 18:59 Intake Total 2500 / 2499 893 / 893 Balance 2500 / 2499 893 / 893 Weight 68.1 kg 68.7 kg Intake: IV 2500 / 2499 173 / 173 D5W/1/2NS + KCL 20 mEq Inj 1, 1000 / 1000 73 / 73 000 ML @ 100 mls/hr IV.CONT . Q10H [facility] Rx#:[id number] Maxipime Inj 2,000 MG In NS Inj 100 / 100 100 ML @ 200 mls/hr IV.SIG ONCE ONE Rx#:[id number] KCl 20 mEq Premix Inj 20 meq In 300 / 300 100 / 100 100 ml @ 50 mls/hr IV.SIG Q2H [facility] Rx#:[id number] NS Inj 1,000 ML @ Wide Open IV. 1000 / 1000 SIG BOLUS [facility] Rx#:[id number] Rocephin Inj 1,000 MG In NS Inj 100 / 100 100 ML @ 200 mls/hr IV.SIG Q24H [facility] Rx#:[id number] Oral 720 / 720 Other: # Urine Diapers 4 Date of Last Bowel Movement 12/02/17 # Bowel Movements 0 Mental Status Examination Appearance: Disheveled Consciousness: Alert Orientation: Person Speech: Incoherent Language: Word salad Fund of Knowledge: Poor Attention and Concentration: Inadequate Memory: Impaired Mood: Oppositional Affect: Irritable Thought Content: Bizarre thinking Delusion Type: None Suicidal Ideation: No Suicidal Plan: No Suicidal Intention: No Homicidal Ideation: No Homicidal Plan: No Homicidal Intention: No Insight: Poor Judgment: Poor Assessment and Plan - Assessment (1) Delirium Code(s): R41.0 - Disorientation, unspecified Status: Acute - Plan Plan: Estimated LOS: [] days On psychiatric evaluation the patient is agitated, restrained in 2 points, very restless, completely disorganized, unable to provide any significant information for the psychiatric assessment at the moment. Just oriented in person, disoriented in time and place. With visible fluctuation of consciousness and attention, most probably delirious due to underlying medical conditions. However a underline major cognitive impairment is also possible. Continue Haldol 1 mg every 4 hours as needed aggressive behavior and agitation. Will order quetiapine 25 mg twice daily to help with behavioral dysregulation. CIWA protocol. Will follow up. Justification for Continued Inpatient Stay: No psychiatric admission indicated at the moment
[2017-12-03] MEDS: LORazepam 1 MG Tablet PO PRN ×2 (15:22→21:11)
[2017-12-03] MEDS: Potassium Chlor 20 mEq Premix 20 MEQ/100 ML PIGGYBACK IV.SIG SCH ×2 (16:59→19:17)
[2017-12-03] MEDS: QUEtiapine 25 MG Tablet PO SCH ×2 (17:06→21:11)
--- NOTE | 2017-12-03 19:26 | ECG ---
Date Performed: 12/02/2017 Time Performed: 11:26:13 PTAGE: 89 years EKG: Sinus rhythm NONSPECIFIC ST & T-WAVE ABNORMALITY BORDERLINE ECG NO PREVIOUS TRACING DOCTOR: El Watkins Interpretating Date/Time 12/03/2017 19:24:23
[2017-12-04] MEDS: KCL 20 mEq/D5W/NaCl 0.45% Inj 1,000 ML IV.CONT SCH ×3 (07:30→17:37)
--- NOTE | 2017-12-04 07:44 | MG ---
cc: Kourtney Graves MD DATE: 12/03/2017. AKA: [id number] EEG NUMBER: [id number] REFERRING PHYSICIAN: Dr. Iglesias. ROOM: 1419. With photic stimulation only; awake and drowsy. CT was negative. Admitted for change in mental status; found on the ground unresponsive, incontinent. MEDICATIONS: 1. Thiamine. 2. Rocephin. 3. Protonix. 4. Other medications. DESCRIPTION OF RECORD: There is a lot of artifact, but overall slowing predominate theta frequency. EKG looks sinus for the most part. The patient has hiccups, constant fidgeting, but overall some mild moderate slowing. Photic stimulation without any significant driving response. IMPRESSION: Abnormal EEG due mild to moderate slowing of background, likely consistent with an encephalopathic process; somewhat poor study due to a lot of artifact and movement. Clinical correlation. MD MARIA TERESA Ellington/lana/josh , 03:30 PM , 03:34 PM
[2017-12-04] MEDS: Senna/Docusate Sodium 8.6/50 MG Tablet PO SCH ×2 (10:13→20:57)
[2017-12-04] MEDS: Folic Acid 1 MG Tablet PO SCH (10:13)
[2017-12-04] MEDS: Multivitamin/Minerals Therapeutic Tablet PO SCH (10:14)
[2017-12-04] MEDS: QUEtiapine 25 MG Tablet PO SCH ×2 (10:14→20:57)
--- NOTE | 2017-12-04 10:19 | P.PN ---
Subjective Interval history: Patient is resting comfortably in bed. Does not provide answers to questions. Physical Exam Vital signs: Vital Signs 12/03/17 12:00 12/03/17 16:00 12/03/17 19:49 Temperature 97.2 F L 97.9 F Pulse Rate 83 91 H 91 H Respiratory Rate 17 17 Blood Pressure 142/77 H 132/95 H Pulse Oximetry 99 99 12/03/17 20:00 12/03/17 23:44 12/03/17 23:49 Temperature 97.8 F 97.4 F L Pulse Rate 86 90 89 Respiratory Rate 20 18 Blood Pressure 109/91 H 165/98 H Pulse Oximetry 99 93 L 12/04/17 03:34 12/04/17 08:00 Temperature 97.3 F L 97.6 F Pulse Rate 90 92 H Respiratory Rate 18 18 Blood Pressure 157/76 H 135/63 Pulse Oximetry 96 96 Intake & Output 12/03/17 12/04/17 12/04/17 18:59 06:59 18:59 Intake Total 1487 / 1487 1100 / 1100 Balance 1487 / 1487 1100 / 1100 Weight 69.1 kg Intake: IV 1127 / 1127 1100 / 1100 D5W/1/2NS + KCL 20 mEq Inj 1, 927 / 927 1000 / 1000 000 ML @ 100 mls/hr IV.CONT . Q10H [facility] Rx#:[id number] KCl 20 mEq Premix Inj 20 meq In 100 / 100 0 / 0 100 ml @ 50 mls/hr IV.SIG Q2H [facility] Rx#:[id number] Rocephin Inj 1,000 MG In NS Inj 100 / 100 100 ML @ 200 mls/hr IV.SIG Q24H [facility] Rx#:[id number] Oral 360 / 360 0 / 0 Other: # Voids 4 # Incontinent Voids 2 Date of Last Bowel Movement 12/04/17 # Bowel Movements 1 1 Narrative: GENERAL: Unalert, disoriented male in NAD SKIN: Warm and dry. HEAD: Atraumatic. Normocephalic. EYES: Pupils equal and round. No scleral icterus. No injection or drainage. ENT: No nasal bleeding or discharge. Mucous membranes pink and moist. NECK: Trachea midline. No JVD. CARDIOVASCULAR: Regular rate and rhythm. RESPIRATORY: No accessory muscle use. Clear to auscultation. Breath sounds equal bilaterally. GASTROINTESTINAL: Abdomen soft, non-tender, nondistended. Hepatic and splenic margins not palpable. MUSCULOSKELETAL: Extremities without clubbing, cyanosis, or edema. No obvious deformities. NEUROLOGICAL: Unalert. No obvious cranial nerve deficits. Motor grossly within normal limits. Moving all limbs spontaneously. Results - Labs CBC & Chem 7: 12/03/17 06:29 12/03/17 06:29 Laboratory Results - last 24 hr 12/03/17 12/04/17 11:58 07:25 POC Glucose 124 H 122 H Microbiology 12/02/17 13:00 Catheterized Urine Urine Culture - Final No growth in 48 hours 12/02/17 11:26 Blood - Peripheral Aerobic Blood Culture - Preliminary No growth in 1 day 12/02/17 11:26 Blood - Peripheral Anaerobic Blood Culture - Preliminary No growth in 1 day 12/02/17 11:45 Blood - Peripheral Aerobic Blood Culture - Preliminary No growth in 1 day 12/02/17 11:45 Blood - Peripheral Anaerobic Blood Culture - Preliminary No growth in 1 day Assessment and Plan - Plan Possible metabolic/toxic encephalopathy Lactic acidosis on admission LA 4.3 Metabolic acidosis with elevated anion gap 21 Severe hypokalemia Elevated bilirubin Transaminitis with AST at 72 Acute kidney injury, creatinine 2.2 however, unknown baseline Urinary tract infection 12/[address] scan of the head on admission, results discussed with ER physician, no acute changes Urine toxicology reviewed, normal findings Neurology and Psych consulted Neuro checks, seizure precautions, EEG ordered, telemetry monitoring, CIWA protocol Cefepime received in the ER, continue rocephin iv for UTI, blood cultures and urine cultures pending, follow results Check lipase. Check CBC, CMP, LA, Mg, Phosp, B12. Monitor labs until lactic acid is back to normal and anion gap closes Start IVF, D5W-1/2NS + KCL 20 mEq, replete electrolytes as needed 12/03 Potassium 2.8. Replace hypernatremia. Continue on half-normal saline. Acute kidney injury improving with IV fluids, creatinine 1.4. Continue replacing thiamine. Follow-up EEG and MRI. Do not suspect UTI, however we will follow-up on culture. Lactic acidosis improving to 2.7. Expect to improve with time and appreciate neurology assistance continue IV fluids. 12/04 EEG: Abnormal EEG due mild to moderate slowing of background, likely consistent with an encephalopathic process. Repeat labs PT/OT/Speech Neuro recs: MRI today - remote lacunar infarcts, no acute processes Lumbar puncture gram stain and analysis pending Psych recs: Most probably delirious due to underlying medical conditions. However a underline major cognitive impairment is also possible. Haldol 1 mg every 4 hours as needed aggressive behavior and agitation. Quetiapine 25 mg twice daily to help with behavioral dysregulation. CIWA protocol. Will follow up. DVT Prophylaxis: SCDs/TEDs Code Status: Full Discharge Planning: Underway
--- NOTE | 2017-12-04 10:54 | P.PNNEU ---
Subjective Active Medications: Active Medications Acetaminophen (Tylenol) 650 mg PO Q4H PRN PRN Reason: Temp > 100.4 Al Hydroxide/Mg Hydroxide (Milk Of Magnesia Liq) 30 ml PO Q12H PRN PRN Reason: Mild Constipation Bisacodyl (Dulcolax Supp) 10 mg RECTAL DAILY PRN PRN Reason: SEVERE CONSITIPATION Flumazenil (Romazecon Inj) 0.2 mg IV.PUSH Q1M PRN PRN Reason: OVERSEDATION Folic Acid (Folic Acid) 1 mg PO DAILY [facility] Stop: 12/07/17 15:29 Last Admin: 12/04/17 10:13 Dose: Not Given Haloperidol Lactate (Haldol Inj) 1 mg IV.PUSH Q15M PRN PRN Reason: for severe agitation Sodium Chloride (Ns Inj) 1,000 mls @ 0 mls/hr IV.SIG BOLUS [facility] Last Infusion: 12/02/17 13:00 Dose: Infused Potassium Chloride/Dextrose/Sod Cl (D5w/1/2ns + Kcl 20 Meq Inj) 1,000 mls @ 100 mls/hr IV.CONT .Q10H [facility] Last Admin: 12/04/17 07:30 Dose: Not Given Ceftriaxone Sodium 1,000 mg/ (Sodium Chloride) 100 mls @ 200 mls/hr IV.SIG Q24H [facility] Last Infusion: 12/03/17 17:04 Dose: Infused Lactulose (Lactulose Liq) 30 ml PO DAILY PRN PRN Reason: SEVERE CONSITIPATION Lorazepam (Ativan) 1 mg PO Q4H PRN PRN Reason: for CIWA 8-10 Last Admin: 12/03/17 21:11 Dose: 1 mg Lorazepam (Ativan Inj) 2 mg IV.PUSH Q2H PRN PRN Reason: for CIWA 11-14 Lorazepam (Ativan Inj) 2 mg IV.PUSH Q1H PRN PRN Reason: for CIWA 15-20 Lorazepam (Ativan Inj) 2 mg IV.PUSH Q15M PRN PRN Reason: for CIWA > 20 Lorazepam (Ativan Inj) 1 mg IV.PUSH Q4H PRN PRN Reason: for CIWA 8-10 Lorazepam (Ativan) 2 mg PO Q2H PRN PRN Reason: for CIWA 11-14 Multivitamins/Minerals (Theragran-M) 1 tab PO DAILY [facility] Stop: 12/07/17 15:29 Last Admin: 12/04/17 10:14 Dose: Not Given Ondansetron HCl (Zofran Inj) 4 mg IV.PUSH Q6H PRN PRN Reason: NAUSEA OR VOMITING Pantoprazole Sodium (Protonix) 40 mg PO DAILY [facility] Last Admin: 12/04/17 10:14 Dose: Not Given Quetiapine Fumarate (Seroquel) 25 mg PO BID [facility] Last Admin: 12/04/17 10:14 Dose: Not Given Senna/Docusate Sodium (Esperanza-Colace) 1 tab PO BID [facility] Last Admin: 12/04/17 10:13 Dose: Not Given Sennosides (Senokot) 17.2 mg PO Q12H PRN PRN Reason: Moderate Constipation Thiamine HCl (Thiamine Inj) 100 mg IM DAILY [facility] Last Admin: 12/04/17 10:14 Dose: Not Given Allergies/Adverse Reactions: Allergies Allergy/AdvReac Type Severity Reaction Status Date / Time No Known Allergies Allergy Verified 12/02/17 11:49 Physical Exam Vital signs: Vital Signs 12/03/17 12:00 12/03/17 16:00 12/03/17 19:49 Temperature 97.2 F L 97.9 F Pulse Rate 83 91 H 91 H Respiratory Rate 17 17 Blood Pressure 142/77 H 132/95 H Pulse Oximetry 99 99 12/03/17 20:00 12/03/17 23:44 12/03/17 23:49 Temperature 97.8 F 97.4 F L Pulse Rate 86 90 89 Respiratory Rate 20 18 Blood Pressure 109/91 H 165/98 H Pulse Oximetry 99 93 L 12/04/17 03:34 12/04/17 08:00 Temperature 97.3 F L 97.6 F Pulse Rate 90 92 H Respiratory Rate 18 18 Blood Pressure 157/76 H 135/63 Pulse Oximetry 96 96 Intake & Output 12/03/17 12/04/17 12/04/17 18:59 06:59 18:59 Intake Total 1487 / 1487 1100 / 1100 Balance 1487 / 1487 1100 / 1100 Weight 69.1 kg Intake: IV 1127 / 1127 1100 / 1100 D5W/1/2NS + KCL 20 mEq Inj 1, 927 / 927 1000 / 1000 000 ML @ 100 mls/hr IV.CONT . Q10H [facility] Rx#:[id number] KCl 20 mEq Premix Inj 20 meq In 100 / 100 0 / 0 100 ml @ 50 mls/hr IV.SIG Q2H [facility] Rx#:[id number] Rocephin Inj 1,000 MG In NS Inj 100 / 100 100 ML @ 200 mls/hr IV.SIG Q24H [facility] Rx#:[id number] Oral 360 / 360 0 / 0 Other: # Voids 4 # Incontinent Voids 2 Date of Last Bowel Movement 12/04/17 # Bowel Movements 1 1 Objective Laboratory Results - last 24 hr 12/03/17 12/04/17 11:58 07:25 POC Glucose 124 H 122 H Microbiology 12/02/17 13:00 Urine Culture - Final Catheterized Urine No growth in 48 hours 12/02/17 11:26 Aerobic Blood Culture - Preliminary Blood - Peripheral No growth in 1 day Anaerobic Blood Culture - Preliminary No growth in 1 day 12/02/17 11:45 Aerobic Blood Culture - Preliminary Blood - Peripheral No growth in 1 day Anaerobic Blood Culture - Preliminary No growth in 1 day Review/Management - Diagnosis (1) Acute metabolic encephalopathy Code(s): G93.41 - Metabolic encephalopathy Status: Acute Current Visit: Yes (2) Hypertensive urgency Code(s): I16.0 - Hypertensive urgency Status: Acute Current Visit: Yes (3) Acute kidney injury Code(s): N17.9 - Acute kidney failure, unspecified Status: Acute Current Visit: Yes - Review/Management Plan: Exclude an infarct; reduced visual field to the left exclude an occipital infarct. In addition noted be quite hypertensive and in renal failure on admission Unknown if any history of toxic ingestion or EtOH withdrawal Urine drug screen negative. Ethanol level negative Recommendation EEG-no sz lp for further evaluation which I feel is medically necessary to assist with diagnosing him MRI brain; pending Follow exam
--- NOTE | 2017-12-04 11:41 | P.PN ---
Subjective Interval history: Patient mental status is not improving. Is not answering questions. He appears however in not acute distress he is not aggressive. Does not follow commands. Physical Exam Vital signs: Vital Signs 12/03/17 12:00 12/03/17 16:00 12/03/17 19:49 Temperature 97.2 F L 97.9 F Pulse Rate 83 91 H 91 H Respiratory Rate 17 17 Blood Pressure 142/77 H 132/95 H Pulse Oximetry 99 99 12/03/17 20:00 12/03/17 23:44 12/03/17 23:49 Temperature 97.8 F 97.4 F L Pulse Rate 86 90 89 Respiratory Rate 20 18 Blood Pressure 109/91 H 165/98 H Pulse Oximetry 99 93 L 12/04/17 03:34 12/04/17 08:00 Temperature 97.3 F L 97.6 F Pulse Rate 90 94 H Respiratory Rate 18 18 Blood Pressure 157/76 H 135/63 Pulse Oximetry 96 96 Intake & Output 12/03/17 12/04/17 12/04/17 18:59 06:59 18:59 Intake Total 1487 / 1487 1100 / 1100 Balance 1487 / 1487 1100 / 1100 Weight 69.1 kg Intake: IV 1127 / 1127 1100 / 1100 D5W/1/2NS + KCL 20 mEq Inj 1, 927 / 927 1000 / 1000 000 ML @ 100 mls/hr IV.CONT . Q10H [facility] Rx#:[id number] KCl 20 mEq Premix Inj 20 meq In 100 / 100 0 / 0 100 ml @ 50 mls/hr IV.SIG Q2H [facility] Rx#:[id number] Rocephin Inj 1,000 MG In NS Inj 100 / 100 100 ML @ 200 mls/hr IV.SIG Q24H [facility] Rx#:[id number] Oral 360 / 360 0 / 0 Other: # Voids 4 # Incontinent Voids 2 Date of Last Bowel Movement 12/04/17 # Bowel Movements 1 1 Narrative: GENERAL: Disoriented male in NAD. Does not follow commands CARDIOVASCULAR: Regular rate and rhythm. RESPIRATORY: No accessory muscle use. Clear to auscultation. Breath sounds equal bilaterally. GASTROINTESTINAL: Abdomen soft, non-tender, nondistended. Hepatic and splenic margins not palpable. MUSCULOSKELETAL: Extremities without clubbing, cyanosis, or edema. No obvious deformities. NEUROLOGICAL: Disoriented. No obvious cranial nerve deficits. Moving all limbs spontaneously. Does not follow commands Results - Labs CBC & Chem 7: 12/03/17 06:29 12/03/17 06:29 Laboratory Results - last 24 hr 12/03/17 12/04/17 11:58 07:25 POC Glucose 124 H 122 H Microbiology 12/02/17 11:26 Blood - Peripheral Aerobic Blood Culture - Preliminary No growth in 2 days 12/02/17 11:26 Blood - Peripheral Anaerobic Blood Culture - Preliminary No growth in 2 days 12/02/17 11:45 Blood - Peripheral Aerobic Blood Culture - Preliminary No growth in 2 days 12/02/17 11:45 Blood - Peripheral Anaerobic Blood Culture - Preliminary No growth in 2 days 12/02/17 13:00 Catheterized Urine Urine Culture - Final No growth in 48 hours Assessment and Plan - Plan Possible metabolic/toxic encephalopathy Lactic acidosis on admission LA 4.3 Metabolic acidosis with elevated anion gap 21 Severe hypokalemia Elevated bilirubin Transaminitis with AST at 72 on admission Acute kidney injury, creatinine 2.2 however, unknown baseline Urinary tract infection CT scan of the head on admission reviewed no acute changes Plan for MRI brain Status post LP, CSF analysis pending Urine toxicology reviewed, normal findings Neurology and Psych consulted, appreciate recommendations Neuro checks, seizure precautions, telemetry monitoring, CIWA protocol EEG reviewed findings consistent with encephalomalacia Continue rocephin iv for UTI, blood cultures and urine cultures pending, follow results Check lipase nl. Follow CBC, CMP, LA, Mg, Phosp, B12. Monitor labs until lactic acid is back to normal and anion gap closes Continue IVF, D5W-1/2NS + KCL 20 mEq, continue to monitor and replete electrolytes as needed Discharge plan. Pending improvement
--- NOTE | 2017-12-04 13:17 | MR ---
EXAM DATE: 12/04/2017 12:00 AM EDT AGE/SEX: 62 years / Male INDICATIONS: Altered mental status. Found down. CLINICAL DATA: This is the patient's subsequent encounter. Patient reports that signs and symptoms h ave been present for 2 days and indicates a pain score of Nonresponsive. MEDICAL/SURGICAL HISTORY: Non-responsive. Non-responsive. COMPARISON: [facility] [place], CT HEAD W/O CONTRAST, 12/02/2017. . TECHNIQUE: Multiplanar, multisequence examination of the brain was performed without contrast. FINDINGS: Motion artifact limits evaluation. Cerebrum: The ventricles are normal for age. No evidence of midline shift, mass lesion, hemorrhage or acute infarction. No extraaxial fluid collections are seen. The pituitary gland and suprasellar cistern are normal in configuration. White Matter: No significant signal abnormalities are seen in the white matter. Posterior Fossa: The brainstem is intact. Old left-sided cerebellar lacunar infarcts.. The 4th ventr icle is midline. The cerebellopontine angle is unremarkable. The cerebellar tonsils are normal in p osition. Diffusion Imaging: No focal areas of restricted diffusion are seen. No evidence of acute infarction . Extracranial: The visualized portions of the orbits and paranasal sinuses are unremarkable. CONCLUSION: 1. Remote left cerebellar lacunar infarcts. 2. No acute intracranial abnormality. Electronically signed by: Cy Sorto MD 12/04/2017 1:16 PM EDT
--- NOTE | 2017-12-04 15:20 | P.RAD ---
Post Procedure Progress Note - Pre Procedure Diagnosis (1) Altered mental status - Post Procedure Diagnosis (1) Altered mental status - Procedure Information Procedure Date: 12/04/17 Supervising Radiologist: Montez Robles MD Estimated blood loss (mL): 0 Anesthesia: Local - Plan of Activity Patient to Unit: Nursing Unit Patient Condition: Fair See PACS Report for procedural detail/treatment. Spinal Procedure Lumbar Puncture L3-L4 Fluid Removal (CCs): 18 Fluid Description: Clear Findings: OP: 16
[2017-12-04 15:31] LABS: Total Protein,CSF 86.1 mg/dL (15.0-45.0)
[2017-12-04] MEDS: ACYCLOVIR IV.SIG SCH ×2 (15:54→20:58)
[2017-12-04] MEDS: SODIUM CHLOR 0.9% IV.SIG SCH ×2 (15:54→20:58)
--- NOTE | 2017-12-04 15:55 | IR ---
EXAM DATE: 12/04/2017 10:55 AM EDT AGE/SEX: 62 years / Male INDICATIONS: Patient presents with Alter Mental Status in need of a Lumbar Puncture. CLINICAL DATA: This is the patient's initial encounter. Patient reports that signs and symptoms have been present for 2 days and indicates a pain score of Nonresponsive. MEDICAL/SURGICAL HISTORY: . Unobtainable. . Unobtainable. COMPARISON: [facility] – [place], [place] LUMBAR SPINE W/O CONTRAST, 12/02/2017. . FLUORO TIME (min): 1.63 IMAGE SERIES: 1 ACCESS SITE: L3-4 LUMBAR PUNCTURE TIME: 1355 hours OPENING PRESSURE: 16 cm of water CLOSING PRESSURE: not requested FLUID: Total volume of 18 cc of clear fluid was removed. Fluid was sent to lab for ordered studies. ; . . PROCEDURE: 1. Fluoroscopic guided lumbar puncture. The risks, benefits and alternatives to the procedure were explained and verbal and written consent w as obtained. The site was prepped in sterile fashion. Full sterile technique was used, including ca p, mask, sterile gloves and gown and a large sterile sheet. Hand hygiene and 2% chlorhexidine and/or betadine/alcohol prep was utilized per protocol for cutaneous antisepsis. The skin and subcutaneous tissues were infiltrated with local anesthetic solution. With fluoroscopic guidance the lumbar thecal sac was punctured at the level above. The fluid describ ed above was removed without difficulty. The patient tolerated the procedure well and there were no complications. CONCLUSION: 1. Uncomplicated fluoroscopically guided lumbar puncture. 2. Normal opening pressure of 16 cm of water. Electronically signed by: Montez Robles MD 12/04/2017 3:54 PM EDT
[2017-12-04 16:01] LABS: Lymphocytes, CSF 69 %; Monocytes,CSF 31 %; Neutrophils,CSF 0 %; RBC on Tube 4 5 /mm3
[2017-12-04 16:12] LABS: Calcium 8.4 mg/dL (8.5-10.1); Carbon Dioxide 24.6 meq/L (21.0-32.0); Potassium 3.7 meq/L (3.5-5.1)
[2017-12-05] MEDS: KCL 20 mEq/D5W/NaCl 0.45% Inj 1,000 ML IV.CONT SCH ×4 (04:31→23:16)
[2017-12-05] MEDS: ACYCLOVIR IV.SIG SCH ×3 (04:31→22:15)
[2017-12-05] MEDS: SODIUM CHLOR 0.9% IV.SIG SCH ×3 (04:31→22:15)
[2017-12-05 06:54] LABS: Baso % (Auto) 0.6 % (0.0-2.0); Eos % (Auto) 0.9 % (0.0-4.0); Hemoglobin 10.9 gm/dL (13.0-17.0); Lymph % (Auto) 20.9 % (9.0-44.0); Mean Corpuscular HGB Conc 35.1 % (32.0-36.0); Mean Corpuscular Hemoglobin 34.1 pg (27.0-34.0); Mean Corpuscular Volume 97.3 fL (80.0-100.0); Mean Platelet Volume 10.4 fL (7.0-11.0); Mono # (Auto) 0.5 th/mm3 (0.0-0.9); Mono % (Auto) 9.3 % (0.0-8.0); Neut # (Auto) 3.4 th/mm3 (1.8-7.7); Neut % (Auto) 68.3 % (16.0-70.0); Platelet Count 86 th/mm3 (150-450); Red Blood Count 3.18 mil/mm3 (4.50-5.90); Red Cell Distribution Width 13.8 % (11.6-17.2)
[2017-12-05 07:20] LABS: Alanine Aminotransferase 42 U/L (12-78); Albumin 2.4 g/dL (3.4-5.0); Anion Gap 13 meq/L (5-15); Aspartate Aminotransferase 85 U/L (15-37); Blood Urea Nitrogen 25 mg/dL (7-18); Chloride 114 meq/L (98-107); Glomerular Filtration Rate 70 mL/min (>89); Glucose,Random 79 mg/dL (74-106); Potassium 3.5 meq/L (3.5-5.1); Sodium 151 meq/L (136-145)
[2017-12-05 07:22] LABS: Alkaline Phosphatase 66 U/L (45-117); Total Protein 5.7 g/dL (6.4-8.2)
--- NOTE | 2017-12-05 07:56 | P.PNNEU ---
Subjective Subjective Comments: No acute events Active Medications: Active Medications Acetaminophen (Tylenol) 650 mg PO Q4H PRN PRN Reason: Temp > 100.4 Al Hydroxide/Mg Hydroxide (Milk Of Magnesia Liq) 30 ml PO Q12H PRN PRN Reason: Mild Constipation Bisacodyl (Dulcolax Supp) 10 mg RECTAL DAILY PRN PRN Reason: SEVERE CONSITIPATION Flumazenil (Romazecon Inj) 0.2 mg IV.PUSH Q1M PRN PRN Reason: OVERSEDATION Folic Acid (Folic Acid) 1 mg PO DAILY [facility] Stop: 12/07/17 15:29 Last Admin: 12/04/17 10:13 Dose: Not Given Haloperidol Lactate (Haldol Inj) 1 mg IV.PUSH Q15M PRN PRN Reason: for severe agitation Sodium Chloride (Ns Inj) 1,000 mls @ 0 mls/hr IV.SIG BOLUS [facility] Last Infusion: 12/02/17 13:00 Dose: Infused Potassium Chloride/Dextrose/Sod Cl (D5w/1/2ns + Kcl 20 Meq Inj) 1,000 mls @ 100 mls/hr IV.CONT .Q10H [facility] Last Admin: 12/05/17 04:31 Dose: 100 mls/hr Ceftriaxone Sodium 1,000 mg/ (Sodium Chloride) 100 mls @ 200 mls/hr IV.SIG Q24H [facility] Last Infusion: 12/04/17 17:37 Dose: Infused Acyclovir Sodium 690 mg/ (Sodium Chloride) 113.8 mls @ 113.8 mls/hr IV.SIG Q8H [facility] Last Infusion: 12/05/17 05:31 Dose: Infused Lactulose (Lactulose Liq) 30 ml PO DAILY PRN PRN Reason: SEVERE CONSITIPATION Lorazepam (Ativan) 1 mg PO Q4H PRN PRN Reason: for CIWA 8-10 Last Admin: 12/03/17 21:11 Dose: 1 mg Lorazepam (Ativan Inj) 2 mg IV.PUSH Q2H PRN PRN Reason: for CIWA 11-14 Lorazepam (Ativan Inj) 2 mg IV.PUSH Q1H PRN PRN Reason: for CIWA 15-20 Lorazepam (Ativan Inj) 2 mg IV.PUSH Q15M PRN PRN Reason: for CIWA > 20 Lorazepam (Ativan Inj) 1 mg IV.PUSH Q4H PRN PRN Reason: for CIWA 8-10 Last Admin: 12/04/17 13:41 Dose: 1 mg Lorazepam (Ativan) 2 mg PO Q2H PRN PRN Reason: for CIWA 11- Multivitamins/Minerals (Theragran-M) 1 tab PO DAILY [facility] Stop: 12/07/17 15:29 Last Admin: 12/04/17 10:14 Dose: Not Given Ondansetron HCl (Zofran Inj) 4 mg IV.PUSH Q6H PRN PRN Reason: NAUSEA OR VOMITING Pantoprazole Sodium (Protonix) 40 mg PO DAILY [facility] Last Admin: 12/04/17 10:14 Dose: Not Given Quetiapine Fumarate (Seroquel) 25 mg PO BID [facility] Last Admin: 12/04/17 20:57 Dose: Not Given Senna/Docusate Sodium (Esperanza-Colace) 1 tab PO BID [facility] Last Admin: 12/04/17 20:57 Dose: Not Given Sennosides (Senokot) 17.2 mg PO Q12H PRN PRN Reason: Moderate Constipation Thiamine HCl (Thiamine Inj) 100 mg IM DAILY [facility] Last Admin: 12/04/17 10:14 Dose: Not Given Allergies/Adverse Reactions: Allergies Allergy/AdvReac Type Severity Reaction Status Date / Time No Known Allergies Allergy Verified 12/02/17 11:49 Review of Systems unobtainable due to mental status Physical Exam Vital signs: Vital Signs 12/04/17 08:00 12/04/17 09:00 12/04/17 12:00 Temperature 97.6 F 97.5 F L Pulse Rate 94 H 85 82 Respiratory Rate 18 18 Blood Pressure 135/63 110/72 Pulse Oximetry 96 95 12/04/17 16:00 12/04/17 20:00 12/05/17 00:00 Temperature 97.2 F L 97.9 F 97.6 F Pulse Rate 80 95 H 97 H Respiratory Rate 18 18 18 Blood Pressure 141/87 H 153/108 H 116/81 Pulse Oximetry 96 97 97 12/05/17 00:03 12/05/17 03:58 12/05/17 03:59 Temperature 97.6 F Pulse Rate 94 H 90 90 Respiratory Rate 22 Blood Pressure 155/89 H Pulse Oximetry 98 Intake & Output 12/04/17 12/05/17 12/05/17 18:59 06:59 18:59 Intake Total 2213.8 / 2213.8 1227.6 / 1227.6 Balance 2213.8 / 2213.8 1227.6 / 1227.6 Weight 70.1 kg Intake: IV 2213.8 / 2213.8 1227.6 / 1227.6 D5W/1/2NS + KCL 20 mEq Inj 1, 2000 / 2000 1000 / 1000 000 ML @ 100 mls/hr IV.CONT . Q10H [facility] Rx#:[id number] Zovirax Inj 690 MG In NS Inj 113.8 / 113.8 227.6 / 227.6 100 ML @ 113.8 mls/hr IV.SIG Q8H [facility] Rx#:[id number] Rocephin Inj 1,000 MG In NS Inj 100 / 100 100 ML @ 200 mls/hr IV.SIG Q24H [facility] Rx#:[id number] Oral 0 / 0 Other: # Incontinent Voids 2 # Incontinent Bowel Movements 1 Narrative: GENERAL: in NAD, disheveled appearance SKIN: Warm and dry. HEAD: Atraumatic. Normocephalic. EYES: Pupils equal and round. No scleral icterus. ENT: No nasal bleeding or discharge. Mucous membranes pink and moist. NECK: Trachea midline. No JVD. CARDIOVASCULAR: Regular rate and rhythm. RESPIRATORY: No accessory muscle use. GASTROINTESTINAL: Abdomen soft, non-tender, nondistended. MUSCULOSKELETAL: Extremities without clubbing, cyanosis, or edema. No obvious deformities. NEUROLOGICAL: Drowsy alerts, able to state his name, follow some simple motor requests becomes inattentive, looks hypovolemic, no gaze deviation, no facial asymmetry localized all 4 extremity upper extremity and restraints, plantarflex her no clonus, no involuntary movements otherwise, PSYCHIATRIC: Confused - Constitutional no acute distress - Routine HEENT Exam Head: Present: normocephalic Eye: Present: EOMI Objective Laboratory Results - last 24 hr 12/04/17 12/04/17 12/04/17 13:55 13:55 13:55 WBC RBC Hgb Hct MCV MCH MCHC RDW Plt Count MPV Prelim Diff (Auto) Neut % (Auto) Lymph % (Auto) [place] % (Auto) Eos % (Auto) Baso % (Auto) Neut # (Auto) Lymph # (Auto) [place] # (Auto) Eos # (Auto) Baso # (Auto) Differential Comment Sodium Potassium Chloride Carbon Dioxide Anion Gap BUN Creatinine Estimated GFR POC Glucose Random Glucose Calcium Total Bilirubin AST ALT Alkaline Phosphatase Total Protein Albumin CSF Volume (1) 3.4 CSF Supernat Color (1) Clear CSF Gross Blood (1) 0 CSF Volume (2) 3.4 CSF Supernat Color (2) Clear CSF Gross Blood (2) 0 CSF Volume (3) 3.0 CSF Supernat Color (3) Clear CSF Gross Blood (3) 0 CSF Volume (4) 8.0 CSF Supernat Color (4) Clear CSF Gross Blood (4) 0 CSF WBC (4) 2 CSF RBC (4) 5 H CSF Neutrophils % 0 CSF Lymphocytes % 69 CSF Monocytes % 31 CSF Glucose Cancelled CSF Lactic Acid CSF Total Protein CSF N.mening B/E.coli K1 Cancelled CSF N.meningitidis A/Y Cancelled Bacterial Ag Source Cancelled H.influenzae Type B Ag Cancelled N. meningitidis C/W 135 Cancelled Group B Strep Antigen Cancelled S. pneumoniae Antigen Cancelled 12/04/17 12/04/17 12/04/17 13:55 13:55 15:20 WBC RBC Hgb Hct MCV MCH MCHC RDW Plt Count MPV Prelim Diff (Auto) Neut % (Auto) Lymph % (Auto) [place] % (Auto) Eos % (Auto) Baso % (Auto) Neut # (Auto) Lymph # (Auto) [place] # (Auto) Eos # (Auto) Baso # (Auto) Differential Comment Sodium 153 H Potassium 3.7 D Chloride 115 H Carbon Dioxide 24.6 Anion Gap 13 BUN 31 H Creatinine 1.08 Estimated GFR 69 L POC Glucose Random Glucose 92 Calcium 8.4 L Total Bilirubin AST ALT Alkaline Phosphatase Total Protein Albumin CSF Volume (1) CSF Supernat Color (1) CSF Gross Blood (1) CSF Volume (2) CSF Supernat Color (2) CSF Gross Blood (2) CSF Volume (3) CSF Supernat Color (3) CSF Gross Blood (3) CSF Volume (4) CSF Supernat Color (4) CSF Gross Blood (4) CSF WBC (4) CSF RBC (4) CSF Neutrophils % CSF Lymphocytes % CSF Monocytes % CSF Glucose 56 CSF Lactic Acid 2.2 CSF Total Protein 86.1 H Cancelled CSF N.mening B/E.coli K1 CSF N.meningitidis A/Y Bacterial Ag Source H.influenzae Type B Ag N. meningitidis C/W 135 Group B Strep Antigen S. pneumoniae Antigen 12/04/17 12/05/17 12/05/17 17:32 05:05 05:05 WBC 5.0 RBC 3.18 L Hgb 10.9 L Hct 31.0 L MCV 97.3 MCH 34.1 H MCHC 35.1 RDW 13.8 Plt Count 86 L MPV 10.4 Prelim Diff (Auto) Slide review pending Neut % (Auto) 68.3 Lymph % (Auto) 20.9 [place] % (Auto) 9.3 H Eos % (Auto) 0.9 Baso % (Auto) 0.6 Neut # (Auto) 3.4 Lymph # (Auto) 1.0 [place] # (Auto) 0.5 Eos # (Auto) 0.0 Baso # (Auto) 0.0 Differential Comment . Sodium 151 H Potassium 3.5 Chloride 114 H Carbon Dioxide 24.0 Anion Gap 13 BUN 25 H Creatinine 1.07 Estimated GFR 70 L POC Glucose 111 H Random Glucose 79 Calcium 8.0 L Total Bilirubin 1.1 H AST 85 H ALT 42 Alkaline Phosphatase 66 Total Protein 5.7 L Albumin 2.4 L CSF Volume (1) CSF Supernat Color (1) CSF Gross Blood (1) CSF Volume (2) CSF Supernat Color (2) CSF Gross Blood (2) CSF Volume (3) CSF Supernat Color (3) CSF Gross Blood (3) CSF Volume (4) CSF Supernat Color (4) CSF Gross Blood (4) CSF WBC (4) CSF RBC (4) CSF Neutrophils % CSF Lymphocytes % CSF Monocytes % CSF Glucose CSF Lactic Acid CSF Total Protein CSF N.mening B/E.coli K1 CSF N.meningitidis A/Y Bacterial Ag Source H.influenzae Type B Ag N. meningitidis C/W 135 Group B Strep Antigen S. pneumoniae Antigen 12/05/17 12/05/17 05:50 07:22 WBC RBC Hgb Hct MCV MCH MCHC RDW Plt Count MPV Prelim Diff (Auto) Neut % (Auto) Lymph % (Auto) [place] % (Auto) Eos % (Auto) Baso % (Auto) Neut # (Auto) Lymph # (Auto) [place] # (Auto) Eos # (Auto) Baso # (Auto) Differential Comment Sodium Potassium Chloride Carbon Dioxide Anion Gap BUN Creatinine Estimated GFR POC Glucose 101 104 Random Glucose Calcium Total Bilirubin AST ALT Alkaline Phosphatase Total Protein Albumin CSF Volume (1) CSF Supernat Color (1) CSF Gross Blood (1) CSF Volume (2) CSF Supernat Color (2) CSF Gross Blood (2) CSF Volume (3) CSF Supernat Color (3) CSF Gross Blood (3) CSF Volume (4) CSF Supernat Color (4) CSF Gross Blood (4) CSF WBC (4) CSF RBC (4) CSF Neutrophils % CSF Lymphocytes % CSF Monocytes % CSF Glucose CSF Lactic Acid CSF Total Protein CSF N.mening B/E.coli K1 CSF N.meningitidis A/Y Bacterial Ag Source H.influenzae Type B Ag N. meningitidis C/W 135 Group B Strep Antigen S. pneumoniae Antigen Microbiology 12/04/17 13:55 Gram Stain - Final Lumbar Puncture 12/02/17 11:26 Aerobic Blood Culture - Preliminary Blood - Peripheral No growth in 2 days Anaerobic Blood Culture - Preliminary No growth in 2 days 12/02/17 11:45 Aerobic Blood Culture - Preliminary Blood - Peripheral No growth in 2 days Anaerobic Blood Culture - Preliminary No growth in 2 days 12/02/17 13:00 Urine Culture - Final Catheterized Urine No growth in 48 hours Review/Management - Diagnosis (1) Acute metabolic encephalopathy Code(s): G93.41 - Metabolic encephalopathy Status: Acute Current Visit: Yes (2) Hypertensive urgency Code(s): I16.0 - Hypertensive urgency Status: Acute Current Visit: Yes (3) Acute kidney injury Code(s): N17.9 - Acute kidney failure, unspecified Status: Acute Current Visit: Yes - Review/Management Plan: Exclude an infarct; reduced visual field to the left exclude an occipital infarct. In addition noted be quite hypertensive and in renal failure on admission Unknown if any history of toxic ingestion or EtOH withdrawal Urine drug screen negative. Ethanol level negative Recommendation CSF negative for infection thus far slightly elevated protein nonspecific. WBC 2, normal glucose. Continue IV acyclovir until herpes PCR returned MRI brain negative for any acute lesion old infarcts Hypernatremia; per medical Hydration, nutritional support Adjustment in psychotropic medications to avoid oversedation Follow exam
[2017-12-05] MEDS: Senna/Docusate Sodium 8.6/50 MG Tablet PO SCH ×2 (08:06→22:16)
[2017-12-05] MEDS: Folic Acid 1 MG Tablet PO SCH (08:06)
[2017-12-05] MEDS: Multivitamin/Minerals Therapeutic Tablet PO SCH (08:06)
[2017-12-05] MEDS: QUEtiapine 25 MG Tablet PO SCH ×2 (08:06→22:15)
--- NOTE | 2017-12-05 11:43 | P.PN ---
Subjective Interval history: The patient is still with agitation and is on restraints. Still with altered mental status not responding. Moving arms or legs does not follow commands. No tremors. Physical Exam Vital signs: Vital Signs 12/04/17 12:00 12/04/17 16:00 12/04/17 20:00 Temperature 97.5 F L 97.2 F L 97.9 F Pulse Rate 82 80 95 H Respiratory Rate 18 18 18 Blood Pressure 110/72 141/87 H 153/108 H Pulse Oximetry 95 96 97 12/05/17 00:00 12/05/17 00:03 12/05/17 03:58 Temperature 97.6 F Pulse Rate 97 H 94 H 90 Respiratory Rate 18 Blood Pressure 116/81 Pulse Oximetry 97 12/05/17 03:59 12/05/17 08:00 12/05/17 09:00 Temperature 97.6 F 97.7 F Pulse Rate 90 103 H 103 H Respiratory Rate 22 18 Blood Pressure 155/89 H 156/110 H Pulse Oximetry 98 93 L Intake & Output 12/04/17 12/05/17 12/05/17 18:59 06:59 18:59 Intake Total 2213.8 / 2213.8 1227.6 / 1227.6 Balance 2213.8 / 2213.8 1227.6 / 1227.6 Weight 70.1 kg Intake: IV 2213.8 / 2213.8 1227.6 / 1227.6 D5W/1/2NS + KCL 20 mEq Inj , 2000 / 1999 1000 / 1000 000 ML @ 100 mls/hr IV.CONT . Q10H [facility] Rx#:[id number] Zovirax Inj 690 MG In NS Inj 113.8 / 113.8 227.6 / 227.6 100 ML @ 113.8 mls/hr IV.SIG Q8H [facility] Rx#:[id number] Rocephin Inj 1,000 MG In NS Inj 100 / 100 100 ML @ 200 mls/hr IV.SIG Q24H [facility] Rx#:[id number] Oral 0 / 0 Other: # Incontinent Voids 2 Date of Last Bowel Movement 12/04/17 # Incontinent Bowel Movements 1 Narrative: GENERAL: Disheveled 62-year-old male in restraints. Agitated on and off. Drowsy at times. CARDIOVASCULAR: Regular rate and rhythm. RESPIRATORY: No accessory muscle use. GASTROINTESTINAL: Abdomen soft, non-tender, nondistended. MUSCULOSKELETAL: Extremities without clubbing, cyanosis, or edema. No obvious deformities. NEUROLOGICAL: Drowsy alerts, able to state his name, follow some simple motor requests becomes inattentive, looks hypovolemic, no gaze deviation, no facial asymmetry localized all 4 extremity upper extremity and restraints, plantarflex her no clonus, no involuntary movements otherwise, PSYCHIATRIC: Confused, agitated on/off, drowsy at times. Results - Labs CBC & Chem 7: 12/05/17 05:05 12/05/17 05:05 Laboratory Results - last 24 hr 12/04/17 12/04/17 12/04/17 13:55 13:55 13:55 WBC RBC Hgb Hct MCV MCH MCHC RDW Plt Count MPV Prelim Diff (Auto) Neut % (Auto) Lymph % (Auto) [place] % (Auto) Eos % (Auto) Baso % (Auto) Neut # (Auto) Lymph # (Auto) [place] # (Auto) Eos # (Auto) Baso # (Auto) WBC Differential Diff Scan Differential Comment Platelet Estimate Platelet Morphology Sodium Potassium Chloride Carbon Dioxide Anion Gap BUN Creatinine Estimated GFR POC Glucose Random Glucose Calcium Total Bilirubin AST ALT Alkaline Phosphatase Total Protein Albumin CSF Volume (1) 3.4 CSF Supernat Color (1) Clear CSF Gross Blood (1) 0 CSF Volume (2) 3.4 CSF Supernat Color (2) Clear CSF Gross Blood (2) 0 CSF Volume (3) 3.0 CSF Supernat Color (3) Clear CSF Gross Blood (3) 0 CSF Volume (4) 8.0 CSF Supernat Color (4) Clear CSF Gross Blood (4) 0 CSF WBC (4) 2 CSF RBC (4) 5 H CSF Neutrophils % 0 CSF Lymphocytes % 69 CSF Monocytes % 31 CSF Glucose Cancelled CSF Lactic Acid CSF Total Protein CSF N.mening B/E.coli K1 Cancelled CSF N.meningitidis A/Y Cancelled Bacterial Ag Source Cancelled H.influenzae Type B Ag Cancelled N. meningitidis C/W 135 Cancelled Group B Strep Antigen Cancelled S. pneumoniae Antigen Cancelled 12/04/17 12/04/17 12/04/17 13:55 13:55 15:20 WBC RBC Hgb Hct MCV MCH MCHC RDW Plt Count MPV Prelim Diff (Auto) Neut % (Auto) Lymph % (Auto) [place] % (Auto) Eos % (Auto) Baso % (Auto) Neut # (Auto) Lymph # (Auto) [place] # (Auto) Eos # (Auto) Baso # (Auto) WBC Differential Diff Scan Differential Comment Platelet Estimate Platelet Morphology Sodium 153 H Potassium 3.7 D Chloride 115 H Carbon Dioxide 24.6 Anion Gap 13 BUN 31 H Creatinine 1.08 Estimated GFR 69 L POC Glucose Random Glucose 92 Calcium 8.4 L Total Bilirubin AST ALT Alkaline Phosphatase Total Protein Albumin CSF Volume (1) CSF Supernat Color (1) CSF Gross Blood (1) CSF Volume (2) CSF Supernat Color (2) CSF Gross Blood (2) CSF Volume (3) CSF Supernat Color (3) CSF Gross Blood (3) CSF Volume (4) CSF Supernat Color (4) CSF Gross Blood (4) CSF WBC (4) CSF RBC (4) CSF Neutrophils % CSF Lymphocytes % CSF Monocytes % CSF Glucose 56 CSF Lactic Acid 2.2 CSF Total Protein 86.1 H Cancelled CSF N.mening B/E.coli K1 CSF N.meningitidis A/Y Bacterial Ag Source H.influenzae Type B Ag N. meningitidis C/W 135 Group B Strep Antigen S. pneumoniae Antigen 12/04/17 12/05/17 12/05/17 17:32 05:05 05:05 WBC 5.0 RBC 3.18 L Hgb 10.9 L Hct 31.0 L MCV 97.3 MCH 34.1 H MCHC 35.1 RDW 13.8 Plt Count 86 L MPV 10.4 Prelim Diff (Auto) Slide review pending Neut % (Auto) 68.3 Lymph % (Auto) 20.9 [place] % (Auto) 9.3 H Eos % (Auto) 0.9 Baso % (Auto) 0.6 Neut # (Auto) 3.4 Lymph # (Auto) 1.0 [place] # (Auto) 0.5 Eos # (Auto) 0.0 Baso # (Auto) 0.0 WBC Differential . Diff Scan Auto diff confirmed Differential Comment . Platelet Estimate Low L Platelet Morphology Enlarged H Sodium 151 H Potassium 3.5 Chloride 114 H Carbon Dioxide 24.0 Anion Gap 13 BUN 25 H Creatinine 1.07 Estimated GFR 70 L POC Glucose 111 H Random Glucose 79 Calcium 8.0 L Total Bilirubin 1.1 H AST 85 H ALT 42 Alkaline Phosphatase 66 Total Protein 5.7 L Albumin 2.4 L CSF Volume (1) CSF Supernat Color (1) CSF Gross Blood (1) CSF Volume (2) CSF Supernat Color (2) CSF Gross Blood (2) CSF Volume (3) CSF Supernat Color (3) CSF Gross Blood (3) CSF Volume (4) CSF Supernat Color (4) CSF Gross Blood (4) CSF WBC (4) CSF RBC (4) CSF Neutrophils % CSF Lymphocytes % CSF Monocytes % CSF Glucose CSF Lactic Acid CSF Total Protein CSF N.mening B/E.coli K1 CSF N.meningitidis A/Y Bacterial Ag Source H.influenzae Type B Ag N. meningitidis C/W 135 Group B Strep Antigen S. pneumoniae Antigen 12/05/17 12/05/17 12/05/17 05:50 07:22 11:31 WBC RBC Hgb Hct MCV MCH MCHC RDW Plt Count MPV Prelim Diff (Auto) Neut % (Auto) Lymph % (Auto) [place] % (Auto) Eos % (Auto) Baso % (Auto) Neut # (Auto) Lymph # (Auto) [place] # (Auto) Eos # (Auto) Baso # (Auto) WBC Differential Diff Scan Differential Comment Platelet Estimate Platelet Morphology Sodium Potassium Chloride Carbon Dioxide Anion Gap BUN Creatinine Estimated GFR POC Glucose 101 104 134 H Random Glucose Calcium Total Bilirubin AST ALT Alkaline Phosphatase Total Protein Albumin CSF Volume (1) CSF Supernat Color (1) CSF Gross Blood (1) CSF Volume (2) CSF Supernat Color (2) CSF Gross Blood (2) CSF Volume (3) CSF Supernat Color (3) CSF Gross Blood (3) CSF Volume (4) CSF Supernat Color (4) CSF Gross Blood (4) CSF WBC (4) CSF RBC (4) CSF Neutrophils % CSF Lymphocytes % CSF Monocytes % CSF Glucose CSF Lactic Acid CSF Total Protein CSF N.mening B/E.coli K1 CSF N.meningitidis A/Y Bacterial Ag Source H.influenzae Type B Ag N. meningitidis C/W 135 Group B Strep Antigen S. pneumoniae Antigen Microbiology 12/02/17 11:26 Blood - Peripheral Aerobic Blood Culture - Preliminary No growth in 3 days 12/02/17 11:26 Blood - Peripheral Anaerobic Blood Culture - Preliminary No growth in 3 days 12/02/17 11:45 Blood - Peripheral Aerobic Blood Culture - Preliminary No growth in 3 days 12/02/17 11:45 Blood - Peripheral Anaerobic Blood Culture - Preliminary No growth in 3 days 12/04/17 13:55 Lumbar Puncture Gram Stain - Final 12/04/17 13:55 Lumbar Puncture CSF Culture - Preliminary No growth in 24 hours 12/02/17 13:00 Catheterized Urine Urine Culture - Final No growth in 48 hours - Imaging Impressions Head MRI 12/04/17 00:00 CONCLUSION: 1. Remote left cerebellar lacunar infarcts. 2. No acute intracranial abnormality. Lumbar Puncture Fluoroscopy 12/04/17 10:55 CONCLUSION: 1. Uncomplicated fluoroscopically guided lumbar puncture. 2. Normal opening pressure of 16 cm of water. Assessment and Plan - Plan Possible metabolic/toxic encephalopathy. Patient with a history of alcoholism. Likely Wernicke's dementia Lactic acidosis on admission LA 4.3 Metabolic acidosis with elevated anion gap 21 Severe hypokalemia Elevated bilirubin Transaminitis with AST at 72 on admission Acute kidney injury, creatinine 2.2 however, unknown baseline Poss Urinary tract infection Hypernatremia improving CT scan of the head on admission reviewed no acute changes MRI brain Status post LP, CSF analysis pending no signs of infection,. HSV still pending however. Continue IV abx. Continue IV acyclovir Urine toxicology reviewed, normal findings Neurology and Psych consulted, appreciate recommendations Neuro checks, seizure precautions, telemetry monitoring, CIVT protocol EEG reviewed findings consistent with encephalomalacia Continue rocephin iv for UTI, blood cultures and urine cultures pending, follow results Check lipase nl. Follow CBC, CMP, LA, Mg, Phosp, B12. Monitor labs until lactic acid is back to normal and anion gap closes Continue IVF, D5W-1/2NS + KCL 20 mEq, continue to monitor and replete electrolytes as needed Discharge plan. Pending improvement Discussed with Lizabeth by phone and updated.
[2017-12-05 19:51] LABS: Enterovirus (PCR)Source CSF; Enterovirus RNA Qual (PCR) Negative (Negative)
[2017-12-06] MEDS: ACYCLOVIR IV.SIG SCH (04:46)
[2017-12-06] MEDS: SODIUM CHLOR 0.9% IV.SIG SCH (04:46)
[2017-12-06] MEDS: KCL 20 mEq/D5W/NaCl 0.45% Inj 1,000 ML IV.CONT SCH ×2 (04:47→16:00)
[2017-12-06 06:34] LABS: Albumin 2.6 g/dL (3.4-5.0); Calcium 8.3 mg/dL (8.5-10.1); Carbon Dioxide 23.4 meq/L (21.0-32.0)
[2017-12-06 06:39] LABS: Total Protein 6.2 g/dL (6.4-8.2)
--- NOTE | 2017-12-06 10:38 | P.PN ---
Subjective Interval history: The patient is in bed he is still in restraints. He is not opening his eyes. No change. He is agitated on and off. He does not appear in distress. Physical Exam Vital signs: Vital Signs 12/05/17 12:00 12/05/17 16:00 12/05/17 17:59 Temperature 98.3 F 98.3 F Pulse Rate 107 H 99 H 101 H Respiratory Rate 18 17 Blood Pressure 115/88 166/113 H Pulse Oximetry 99 98 12/05/17 19:13 12/05/17 20:00 12/06/17 00:00 Temperature 97.7 F 98 F Pulse Rate 86 90 97 H Respiratory Rate 18 19 Blood Pressure 165/108 H 156/102 H Pulse Oximetry 98 99 12/06/17 04:00 12/06/17 08:00 Temperature 98.1 F 98.0 F Pulse Rate 92 H 91 H Respiratory Rate 16 21 Blood Pressure 134/90 142/92 H Pulse Oximetry 99 100 Intake & Output 12/05/17 12/06/17 12/06/17 18:59 06:59 18:59 Intake Total 1453.8 / 1453.8 1227.6 / 1227.6 Output Total 300 / 300 Balance 1153.8 / 1153.8 1227.6 / 1227.6 Weight 70.2 kg Intake: IV 1213.8 / 1213.8 1227.6 / 1227.6 D5W/1/2NS + KCL 20 mEq Inj 1, 1000 / 1000 1000 / 1000 000 ML @ 100 mls/hr IV.CONT . Q10H [facility] Rx#:[id number] Zovirax Inj 690 MG In NS Inj 113.8 / 113.8 227.6 / 227.6 100 ML @ 113.8 mls/hr IV.SIG Q8H [facility] Rx#:[id number] Rocephin Inj 1,000 MG In NS Inj 100 / 100 100 ML @ 200 mls/hr IV.SIG Q24H [facility] Rx#:[id number] Oral 240 / 240 Output: Urine 300 / 300 Other: # Voids 2 Date of Last Bowel Movement 12/04/17 # Bowel Movements 0 Narrative: GENERAL: Disheveled 62-year-old male in restraints. Agitated on and off. Drowsy. CARDIOVASCULAR: Regular rate and rhythm. RESPIRATORY: No accessory muscle use. GASTROINTESTINAL: Abdomen soft, non-tender, nondistended. MUSCULOSKELETAL: Extremities without clubbing, cyanosis, or edema. No obvious deformities. NEUROLOGICAL: Drowsy alerts, able to state his name, follow some simple motor requests becomes inattentive, looks hypovolemic, no gaze deviation, no facial asymmetry localized all 4 extremity upper extremity and restraints, plantarflex her no clonus, no involuntary movements otherwise, PSYCHIATRIC: Confused, agitated on/off, drowsy. Results - Labs CBC & Chem 7: 12/05/17 05:05 12/06/17 05:58 Laboratory Results - last 24 hr 12/04/17 12/04/17 12/04/17 13:55 13:55 13:55 Sodium Potassium Chloride Carbon Dioxide Anion Gap BUN Creatinine Estimated GFR POC Glucose Random Glucose Lactic Acid Calcium Total Bilirubin Direct Bilirubin Indirect Bilirubin AST ALT Alkaline Phosphatase Total Protein Albumin Ser Oligoclonal Bands CSF Oligoclonal Bands CSF Olig Protein Interp CSF Herpes I DNA (PCR) Negative CSF Herpes II DNA (PCR) Negative CMV Specimen Source Csf CMV DNA Quant PCR Negative Enterovirus Source Csf Enterovirus RNA (PCR) Negative 12/04/17 12/05/17 12/05/17 13:55 11:31 18:47 Sodium Potassium Chloride Carbon Dioxide Anion Gap BUN Creatinine Estimated GFR POC Glucose 134 H 107 Random Glucose Lactic Acid Calcium Total Bilirubin Direct Bilirubin Indirect Bilirubin AST ALT Alkaline Phosphatase Total Protein Albumin Ser Oligoclonal Bands 4 CSF Oligoclonal Bands 5 CSF Olig Protein Interp 1 CSF Herpes I DNA (PCR) CSF Herpes II DNA (PCR) CMV Specimen Source CMV DNA Quant PCR Enterovirus Source Enterovirus RNA (PCR) 12/05/17 12/06/17 20:05 05:58 Sodium 145 Potassium 4.0 Chloride 114 H Carbon Dioxide 23.4 Anion Gap 8 BUN 22 H Creatinine 1.07 Estimated GFR 70 L POC Glucose Random Glucose 91 Lactic Acid 1.2 Calcium 8.3 L Total Bilirubin 0.9 Direct Bilirubin 0.5 H Indirect Bilirubin 0.4 AST 101 H ALT 59 Alkaline Phosphatase 73 Total Protein 6.2 L Albumin 2.6 L Ser Oligoclonal Bands CSF Oligoclonal Bands CSF Olig Protein Interp CSF Herpes I DNA (PCR) CSF Herpes II DNA (PCR) CMV Specimen Source CMV DNA Quant PCR Enterovirus Source Enterovirus RNA (PCR) Microbiology 12/04/17 13:55 Lumbar Puncture Gram Stain - Final 12/04/17 13:55 Lumbar Puncture CSF Culture - Preliminary No growth in 48 hours 12/04/17 13:55 Cerebral Spinal Fluid - Lumbar Puncture Acid Fast Bacilli Smear - Final No acid fast bacilli seen 12/02/17 11:26 Blood - Peripheral Aerobic Blood Culture - Preliminary No growth in 3 days 12/02/17 11:26 Blood - Peripheral Anaerobic Blood Culture - Preliminary No growth in 3 days 12/02/17 11:45 Blood - Peripheral Aerobic Blood Culture - Preliminary No growth in 3 days 12/02/17 11:45 Blood - Peripheral Anaerobic Blood Culture - Preliminary No growth in 3 days Assessment and Plan - Plan Possible metabolic/toxic encephalopathy. Patient with a history of alcoholism. Likely Wernicke's dementia Lactic acidosis on admission LA 4.3 Metabolic acidosis with elevated anion gap 21 Severe hypokalemia Elevated bilirubin Transaminitis with AST at 72 on admission Acute kidney injury, creatinine 2.2 however, unknown baseline Poss Urinary tract infection Hypernatremia improving CT scan of the head on admission reviewed no acute changes MRI brain Status post LP, CSF analysis pending no signs of infection,. HSV still pending however. Continue IV abx. Continue IV acyclovir Urine toxicology reviewed, normal findings Neurology and Psych consulted, appreciate recommendations Neuro checks, seizure precautions, telemetry monitoring, CIWA protocol EEG reviewed findings consistent with encephalomalacia Continue rocephin iv for UTI, blood cultures and urine cultures pending, follow results Check lipase nl. Follow CBC, CMP, LA, Mg, Phosp, B12. Monitor labs until lactic acid is back to normal and anion gap closes Continue IVF, D5W-1/2NS + KCL 20 mEq, continue to monitor and replete electrolytes as needed Discharge plan. Pending improvement
[2017-12-06] MEDS: Multivitamin/Minerals Therapeutic Tablet PO SCH (10:57)
[2017-12-06] MEDS: Folic Acid 1 MG Tablet PO SCH (10:57)
[2017-12-06] MEDS: Senna/Docusate Sodium 8.6/50 MG Tablet PO SCH ×2 (10:57→22:14)
[2017-12-06] MEDS: QUEtiapine 25 MG Tablet PO SCH ×2 (19:20→22:14)
[2017-12-07] MEDS: KCL 20 mEq/D5W/NaCl 0.45% Inj 1,000 ML IV.CONT SCH ×6 (01:44→23:30)
[2017-12-07 06:58] LABS: Albumin 2.5 g/dL (3.4-5.0); Anion Gap 9 meq/L (5-15); Aspartate Aminotransferase 100 U/L (15-37); Blood Urea Nitrogen 13 mg/dL (7-18); Calcium 8.2 mg/dL (8.5-10.1); Carbon Dioxide 22.3 meq/L (21.0-32.0); Chloride 109 meq/L (98-107); Glomerular Filtration Rate Greater Than 89 mL/min (>89); Glucose,Random 96 mg/dL (74-106); Potassium 3.8 meq/L (3.5-5.1); Sodium 140 meq/L (136-145)
[2017-12-07 06:59] LABS: Alanine Aminotransferase 68 U/L (12-78)
[2017-12-07 07:01] LABS: Alkaline Phosphatase 79 U/L (45-117); Total Protein 5.9 g/dL (6.4-8.2)
[2017-12-07] MEDS: QUEtiapine 25 MG Tablet PO SCH ×2 (08:54→22:05)
[2017-12-07] MEDS: Multivitamin/Minerals Therapeutic Tablet PO SCH (08:54)
[2017-12-07] MEDS: Folic Acid 1 MG Tablet PO SCH (08:54)
[2017-12-07] MEDS: Senna/Docusate Sodium 8.6/50 MG Tablet PO SCH ×2 (08:54→22:05)
--- NOTE | 2017-12-07 14:39 | P.PN ---
Subjective Interval history: Patient is still agitated on and off however noted more awake and alert today. Able to swallow with and eating with help. Patient needs redirecting. Does not answer questions. With visual hallucinations. Still in restraints. Physical Exam Vital signs: Vital Signs 12/06/17 16:00 12/06/17 20:00 12/07/17 00:00 Temperature 97.0 F L 97.7 F 97.6 F Pulse Rate 89 95 H 90 Respiratory Rate 22 20 20 Blood Pressure 171/89 H 156/92 H 186/92 H Pulse Oximetry 100 97 96 12/07/17 02:30 12/07/17 03:15 12/07/17 04:00 Temperature 97.4 F L Pulse Rate 90 Respiratory Rate 20 Blood Pressure 180/98 H 160/92 H 164/105 H Pulse Oximetry 97 12/07/17 08:00 12/07/17 09:00 12/07/17 12:00 Temperature 98.2 F 97.3 F L Pulse Rate 91 H 92 H 88 Respiratory Rate 20 20 Blood Pressure 187/97 H 172/95 H Pulse Oximetry 99 98 Intake & Output 12/06/17 12/07/17 12/07/17 18:59 06:59 18:59 Intake Total 1240 / 1240 1340 / 1340 1000 / 1000 Balance 1240 / 1240 1340 / 1340 1000 / 1000 Weight 70.2 kg Intake: IV 1000 / 1000 1100 / 1100 1000 / 1000 D5W/1/2NS + KCL 20 mEq Inj 1, 1000 / 1000 1000 / 1000 1000 / 1000 000 ML @ 100 mls/hr IV.CONT . Q10H [facility] Rx#:[id number] Rocephin Inj 1,000 MG In NS Inj 100 / 100 100 ML @ 200 mls/hr IV.SIG Q24H [facility] Rx#:[id number] Oral 240 / 240 240 / 240 Other: # Voids 1 # Incontinent Voids 5 2 # Urine Diapers 2 Date of Last Bowel Movement 12/04/17 # Bowel Movements 0 # Incontinent Bowel Movements 1 Narrative: GENERAL: Disheveled 62-year-old male in restraints. Agitated on and off. More awake and alert. CARDIOVASCULAR: Regular rate and rhythm. RESPIRATORY: No accessory muscle use. GASTROINTESTINAL: Abdomen soft, non-tender, nondistended. MUSCULOSKELETAL: Extremities without clubbing, cyanosis, or edema. No obvious deformities. NEUROLOGICAL: Drowsy alerts, able to state his name, follow some simple motor requests becomes inattentive, looks hypovolemic, no gaze deviation, no facial asymmetry localized all 4 extremity upper extremity and restraints, plantarflex her no clonus, no involuntary movements otherwise, PSYCHIATRIC: Confused, agitated on/off, more awake alert alert moves arms and legs does not follow commands. Results - Labs CBC & Chem 7: 12/05/17 05:05 12/07/17 05:21 Laboratory Results - last 24 hr 12/06/17 12/07/17 12/07/17 17:00 05:21 08:52 Sodium 140 Potassium 3.8 Chloride 109 H Carbon Dioxide 22.3 Anion Gap 9 BUN 13 Creatinine 0.81 Estimated GFR Greater than 89 POC Glucose 100 106 Random Glucose 96 Calcium 8.2 L Total Bilirubin 1.0 Direct Bilirubin 0.4 H Indirect Bilirubin 0.6 AST 100 H ALT 68 Alkaline Phosphatase 79 Total Protein 5.9 L Albumin 2.5 L 12/07/17 13:12 Sodium Potassium Chloride Carbon Dioxide Anion Gap BUN Creatinine Estimated GFR POC Glucose 104 Random Glucose Calcium Total Bilirubin Direct Bilirubin Indirect Bilirubin AST ALT Alkaline Phosphatase Total Protein Albumin Microbiology 12/02/17 11:26 Blood - Peripheral Aerobic Blood Culture - Final No growth in 5 days 12/02/17 11:26 Blood - Peripheral Anaerobic Blood Culture - Final No growth in 5 days 12/02/17 11:45 Blood - Peripheral Aerobic Blood Culture - Final No growth in 5 days 12/02/17 11:45 Blood - Peripheral Anaerobic Blood Culture - Final No growth in 5 days 12/04/17 13:55 Lumbar Puncture Gram Stain - Final 12/04/17 13:55 Lumbar Puncture CSF Culture - Final No growth in 72 hours Assessment and Plan - Plan Possible metabolic/toxic encephalopathy. Patient with a history of alcoholism. Likely Wernicke's dementia Lactic acidosis on admission LA 4.3 Metabolic acidosis with elevated anion gap 21 Severe hypokalemia Elevated bilirubin Transaminitis with AST at 72 on admission Acute kidney injury, creatinine 2.2 however, unknown baseline Poss Urinary tract infection Hypernatremia improving CT scan of the head on admission reviewed no acute changes MRI brain Status post LP, CSF analysis pending no signs of infection,. HSV still pending however. Continue IV abx. Continue IV acyclovir Urine toxicology reviewed, normal findings Neurology and Psych consulted, appreciate recommendations Neuro checks, seizure precautions, telemetry monitoring, CIWA protocol EEG reviewed findings consistent with encephalomalacia Continue rocephin iv for UTI, blood cultures and urine cultures pending, follow results Check lipase nl. Follow CBC, CMP, LA, Mg, Phosp, B12. Monitor labs until lactic acid is back to normal and anion gap closes Continue IVF, D5W-1/2NS + KCL 20 mEq, continue to monitor and replete electrolytes as needed Discharge plan. Pending improvement
[2017-12-08] MEDS: KCL 20 mEq/D5W/NaCl 0.45% Inj 1,000 ML IV.CONT SCH ×3 (02:14→21:58)
--- NOTE | 2017-12-08 06:42 | P.PNNEU ---
Subjective Subjective Comments: no acute events, denies cp/mcneill/dyspnea Active Medications: Active Medications Acetaminophen (Tylenol) 650 mg PO Q4H PRN PRN Reason: Temp > 100.4 Al Hydroxide/Mg Hydroxide (Milk Of Magnesia Liq) 30 ml PO Q12H PRN PRN Reason: Mild Constipation Bisacodyl (Dulcolax Supp) 10 mg RECTAL DAILY PRN PRN Reason: SEVERE CONSITIPATION Enalaprilat (Vasotec Inj) 1.25 mg IV.PUSH Q6H PRN PRN Reason: SBP>160, DBP>90 Last Admin: 12/08/17 06:06 Dose: 1.25 mg Flumazenil (Romazecon Inj) 0.2 mg IV.PUSH Q1M PRN PRN Reason: OVERSEDATION Haloperidol Lactate (Haldol Inj) 1 mg IV.PUSH Q15M PRN PRN Reason: for severe agitation Sodium Chloride (Ns Inj) 1,000 mls @ 0 mls/hr IV.SIG BOLUS [facility] Last Infusion: 12/02/17 13:00 Dose: Infused Potassium Chloride/Dextrose/Sod Cl (D5w/1/2ns + Kcl 20 Meq Inj) 1,000 mls @ 100 mls/hr IV.CONT .Q10H [facility] Last Infusion: 12/08/17 06:02 Dose: 651 mls/hr Ceftriaxone Sodium 1,000 mg/ (Sodium Chloride) 100 mls @ 200 mls/hr IV.SIG Q24H [facility] Last Infusion: 12/07/17 17:04 Dose: Infused Lactulose (Lactulose Liq) 30 ml PO DAILY PRN PRN Reason: SEVERE CONSITIPATION Lorazepam (Ativan) 1 mg PO Q4H PRN PRN Reason: for CIWA 8-10 Last Admin: 12/03/17 21:11 Dose: 1 mg Lorazepam (Ativan Inj) 2 mg IV.PUSH Q2H PRN PRN Reason: for CIWA 11-14 Lorazepam (Ativan Inj) 2 mg IV.PUSH Q1H PRN PRN Reason: for CIWA 15-20 Lorazepam (Ativan Inj) 2 mg IV.PUSH Q15M PRN PRN Reason: for CIWA > 20 Lorazepam (Ativan Inj) 1 mg IV.PUSH Q4H PRN PRN Reason: for CIWA 8-10 Last Admin: 12/06/17 04:52 Dose: 1 mg Lorazepam (Ativan) 2 mg PO Q2H PRN PRN Reason: for CI01-07 Ondansetron HCl (Zofran Inj) 4 mg IV.PUSH Q6H PRN PRN Reason: NAUSEA OR VOMITING Pantoprazole Sodium (Protonix) 40 mg PO DAILY [facility] Last Admin: 12/07/17 08:56 Dose: Not Given Quetiapine Fumarate (Seroquel) 25 mg PO BID [facility] Last Admin: 12/07/17 22:05 Dose: 25 mg Senna/Docusate Sodium (Esperanza-Colace) 1 tab PO BID [facility] Last Admin: 12/07/17 22:05 Dose: 1 tab Sennosides (Senokot) 17.2 mg PO Q12H PRN PRN Reason: Moderate Constipation Thiamine HCl (Thiamine Inj) 100 mg IM DAILY [facility] Last Admin: 12/07/17 08:56 Dose: 100 mg Allergies/Adverse Reactions: Allergies Allergy/AdvReac Type Severity Reaction Status Date / Time No Known Allergies Allergy Verified 12/02/17 11:49 Review of Systems All other systems reviewed negative except as stated in HPI Physical Exam Vital signs: Vital Signs 12/07/17 08:00 12/07/17 09:00 12/07/17 12:00 Temperature 98.2 F 97.3 F L Pulse Rate 91 H 92 H 88 Respiratory Rate 20 20 Blood Pressure 187/97 H 172/95 H Pulse Oximetry 99 98 12/07/17 16:00 12/07/17 20:00 12/08/17 00:00 Temperature 98.3 F 98 F 98 F Pulse Rate 98 H 97 H 99 H Respiratory Rate 20 17 18 Blood Pressure 168/98 H 144/100 H 152/98 H Pulse Oximetry 94 L 92 L 97 12/08/17 04:00 Temperature 97.6 F Pulse Rate 100 H Respiratory Rate 18 Blood Pressure 179/93 H Pulse Oximetry 96 Intake & Output 12/07/17 12/07/17 12/08/17 06:59 18:59 06:59 Intake Total 1340 / 1340 2220 / 2220 1120 / 1120 Output Total 300 / 300 Balance 1340 / 1340 2220 / 2220 820 / 820 Weight 70.2 kg 70.2 kg Intake: IV 1100 / 1100 2100 / 2100 1000 / 1000 D5W/1/2NS + KCL 20 mEq Inj 1, 1000 / 1000 2000 / 2000 1000 / 1000 000 ML @ 100 mls/hr IV.CONT . Q10H [facility] Rx#:[id number] Rocephin Inj 1,000 MG In NS Inj 100 / 100 100 / 100 100 ML @ 200 mls/hr IV.SIG Q24H [facility] Rx#:[id number] Oral 240 / 240 120 / 120 120 / 120 Output: Urine 300 / 300 Other: # Voids 1 # Incontinent Voids 2 6 6 # Urine Diapers 2 2 Date of Last Bowel Movement 12/04/17 12/04/17 # Bowel Movements 0 1 1 # Incontinent Bowel Movements 1 1 Narrative: GENERAL: in NAD, disheveled appearance, appears hypovolemic SKIN: Warm and dry. HEAD: Atraumatic. Normocephalic. EYES: Pupils equal and round. No scleral icterus. ENT: No nasal bleeding or discharge. Mucous membranes pink and moist. NECK: Trachea midline. No JVD. CARDIOVASCULAR: Regular rate and rhythm. RESPIRATORY: No accessory muscle use. GASTROINTESTINAL: Abdomen soft, non-tender, nondistended. MUSCULOSKELETAL: Extremities without clubbing, cyanosis, or edema. No obvious deformities. NEUROLOGICAL: Drowsy alerts, follows some simple motor requests, no gaze deviation, poor tracking, no facial asymmetry localized all 4 extremity upper extremity and restraints, plantarflex her no clonus, no involuntary movements otherwise, PSYCHIATRIC: Confused - Constitutional no acute distress - Routine HEENT Exam Head: Present: normocephalic Objective Laboratory Results - last 24 hr 12/07/17 12/07/17 12/07/17 05:21 08:52 13:12 Sodium 140 Potassium 3.8 Chloride 109 H Carbon Dioxide 22.3 Anion Gap 9 BUN 13 Creatinine 0.81 Estimated GFR Greater than 89 POC Glucose 106 104 Random Glucose 96 Calcium 8.2 L Total Bilirubin 1.0 Direct Bilirubin 0.4 H Indirect Bilirubin 0.6 AST 100 H ALT 68 Alkaline Phosphatase 79 Total Protein 5.9 L Albumin 2.5 L 12/07/17 17:03 Sodium Potassium Chloride Carbon Dioxide Anion Gap BUN Creatinine Estimated GFR POC Glucose 115 H Random Glucose Calcium Total Bilirubin Direct Bilirubin Indirect Bilirubin AST ALT Alkaline Phosphatase Total Protein Albumin Microbiology 12/02/17 11:26 Aerobic Blood Culture - Final Blood - Peripheral No growth in 5 days Anaerobic Blood Culture - Final No growth in 5 days 12/02/17 11:45 Aerobic Blood Culture - Final Blood - Peripheral No growth in 5 days Anaerobic Blood Culture - Final No growth in 5 days 12/04/17 13:55 Gram Stain - Final Lumbar Puncture CSF Culture - Final No growth in 72 hours Review/Management - Diagnosis (1) Acute metabolic encephalopathy Code(s): G93.41 - Metabolic encephalopathy Status: Acute Current Visit: Yes (2) Hypertensive urgency Code(s): I16.0 - Hypertensive urgency Status: Acute Current Visit: Yes (3) Acute kidney injury Code(s): N17.9 - Acute kidney failure, unspecified Status: Acute Current Visit: Yes - Review/Management Plan: hypertensive and in renal failure on admission; ?wernickes encephalopathy Unknown if any history of toxic ingestion or EtOH withdrawal Urine drug screen negative. Ethanol level negative CSF negative for infection thus far slightly elevated protein nonspecific. WBC 2, normal glucose. Continue IV acyclovir until herpes PCR returned MRI brain negative for any acute lesion old infarcts Recommendation f/u hiv, rpr Hydration, nutritional support Adjustment in psychotropic medications; could change to risperdal 0.5mg bid instead of seroquel if that makes him somnolent Follow exam
[2017-12-08 07:47] LABS: Albumin 2.3 g/dL (3.4-5.0); Magnesium 1.9 mg/dL (1.5-2.5); Potassium 4.3 meq/L (3.5-5.1)
[2017-12-08 08:03] LABS: Calcium 8.3 mg/dL (8.5-10.1); Total Protein 5.9 g/dL (6.4-8.2)
--- NOTE | 2017-12-08 09:59 | P.PN ---
Subjective Interval history: Patient resting comfortably in bed. Does not answer questions. Appears to be continually internally stimulated. No distress, no acute changes. Physical Exam Vital signs: Vital Signs 12/07/17 12:00 12/07/17 16:00 12/07/17 20:00 Temperature 97.3 F L 98.3 F 98 F Pulse Rate 88 98 H 97 H Respiratory Rate 20 20 17 Blood Pressure 172/95 H 168/98 H 144/100 H Pulse Oximetry 98 94 L 92 L 12/08/17 00:00 12/08/17 04:00 Temperature 98 F 97.6 F Pulse Rate 99 H 100 H Respiratory Rate 18 18 Blood Pressure 152/98 H 179/93 H Pulse Oximetry 97 96 Intake & Output 12/07/17 12/08/17 12/08/17 18:59 06:59 18:59 Intake Total 2220 / 2220 1120 / 1120 Output Total 300 / 300 Balance 2220 / 2220 820 / 820 Weight 70.2 kg Intake: IV 2100 / 2100 1000 / 1000 D5W/1/2NS + KCL 20 mEq Inj 1, 1999 / 1999 1000 / 1000 000 ML @ 100 mls/hr IV.CONT . Q10H [facility] Rx#:[id number] Rocephin Inj 1,000 MG In NS Inj 100 / 100 100 ML @ 200 mls/hr IV.SIG Q24H [facility] Rx#:[id number] Oral 120 / 120 120 / 120 Output: Urine 300 / 300 Other: # Voids 1 # Incontinent Voids 6 6 # Urine Diapers 2 Date of Last Bowel Movement 12/04/17 # Bowel Movements 1 1 # Incontinent Bowel Movements 1 Narrative: GENERAL: 62 year old male in NAD, unalert and disoriented SKIN: Warm and dry. HEAD: Atraumatic. Normocephalic. EYES: Pupils equal and round. No scleral icterus. ENT: No nasal bleeding or discharge. Mucous membranes pink and moist. NECK: Trachea midline. No JVD. CARDIOVASCULAR: Regular rate and rhythm. Normal S1 and S2, no murmurs, rubs or gallops RESPIRATORY: No accessory muscle use. GASTROINTESTINAL: Abdomen soft, non-tender, nondistended. MUSCULOSKELETAL: Extremities without clubbing, cyanosis, or edema. No obvious deformities. NEUROLOGICAL: Drowsy, unalert, disoriented. CN II - XII grossly intact, no obvious focal deficits PSYCHIATRIC: Confused, appears internally stimulated Results - Labs CBC & Chem 7: 12/05/17 05:05 12/08/17 06:36 Laboratory Results - last 24 hr 12/07/17 12/07/17 12/08/17 13:12 17:03 06:36 Sodium 146 H Potassium 4.3 Chloride 116 H Carbon Dioxide 21.0 Anion Gap 9 BUN 12 Creatinine 1.22 Estimated GFR 60 L POC Glucose 104 115 H Random Glucose 97 Calcium 8.3 L Magnesium 1.9 Total Bilirubin 0.9 Direct Bilirubin 0.4 H Indirect Bilirubin 0.5 AST 65 H ALT 53 Alkaline Phosphatase 74 Total Protein 5.9 L Albumin 2.3 L 12/08/17 07:59 Sodium Potassium Chloride Carbon Dioxide Anion Gap BUN Creatinine Estimated GFR POC Glucose 109 Random Glucose Calcium Magnesium Total Bilirubin Direct Bilirubin Indirect Bilirubin AST ALT Alkaline Phosphatase Total Protein Albumin Microbiology 12/02/17 11:26 Blood - Peripheral Aerobic Blood Culture - Final No growth in 5 days 12/02/17 11:26 Blood - Peripheral Anaerobic Blood Culture - Final No growth in 5 days 12/02/17 11:45 Blood - Peripheral Aerobic Blood Culture - Final No growth in 5 days 12/02/17 11:45 Blood - Peripheral Anaerobic Blood Culture - Final No growth in 5 days 12/04/17 13:55 Lumbar Puncture Gram Stain - Final 12/04/17 13:55 Lumbar Puncture CSF Culture - Final No growth in 72 hours Assessment and Plan - Plan Possible metabolic/toxic encephalopathy. Patient with a history of alcoholism. Likely Wernicke's dementia Lactic acidosis on admission LA 4.3 Metabolic acidosis with elevated anion gap 21 Severe hypokalemia Elevated bilirubin Transaminitis with AST at 72 on admission Acute kidney injury, creatinine 2.2 however, unknown baseline Poss Urinary tract infection Hypernatremia improving CT scan of the head on admission reviewed no acute changes MRI brain Status post LP, CSF analysis pending no signs of infection,. HSV still pending however. Continue IV abx. Continue IV acyclovir Urine toxicology reviewed, normal findings Neurology and Psych consulted, appreciate recommendations Neuro checks, seizure precautions, telemetry monitoring, [facility] protocol EEG reviewed findings consistent with encephalomalacia Continue rocephin iv for UTI, blood cultures and urine cultures pending, follow results Check lipase nl. Follow CBC, CMP, LA, Mg, Phosp, B12. Monitor labs until lactic acid is back to normal and anion gap closes Continue IVF, D5W-1/2NS + KCL 20 mEq, continue to monitor and replete electrolytes as needed Speech seen today, puree diet. Neuro recs: f/u hiv, rpr Hydration, nutritional support Adjustment in psychotropic medications; could change to risperdal 0.5mg bid instead of seroquel if that makes him somnolent Follow exam DVT Prophylaxis: SCDs/TEDs Discharge Planning: Pending improvement
[2017-12-08] MEDS: Senna/Docusate Sodium 8.6/50 MG Tablet PO SCH ×2 (10:43→22:05)
[2017-12-08] MEDS: QUEtiapine 25 MG Tablet PO SCH ×2 (10:44→22:04)
--- NOTE | 2017-12-08 11:42 | P.PN ---
Subjective Interval history: Still confused, agitated on /off in restraints Does not follow commands. Being fed by the nurse. Not improving. Physical Exam Vital signs: Vital Signs 12/07/17 12:00 12/07/17 16:00 12/07/17 20:00 Temperature 97.3 F L 98.3 F 98 F Pulse Rate 88 98 H 97 H Respiratory Rate 20 20 17 Blood Pressure 172/95 H 168/98 H 144/100 H Pulse Oximetry 98 94 L 92 L 12/08/17 00:00 12/08/17 04:00 12/08/17 08:00 Temperature 98 F 97.6 F 97.9 F Pulse Rate 99 H 100 H 95 H Respiratory Rate 18 18 18 Blood Pressure 152/98 H 179/93 H 159/100 H Pulse Oximetry 97 96 99 Intake & Output 12/07/17 12/08/17 12/08/17 18:59 06:59 18:59 Intake Total 2220 / 2220 1120 / 1120 Output Total 300 / 300 Balance 2220 / 2220 820 / 820 Weight 70.2 kg Intake: IV 2099 / 2099 1000 / 1000 D5W/1/2NS + KCL 20 mEq Inj , 1999 / 1999 1000 / 1000 000 ML @ 100 mls/hr IV.CONT . Q10H [facility] Rx#:[id number] Rocephin Inj 1,000 MG In NS Inj 100 / 100 100 ML @ 200 mls/hr IV.SIG Q24H [facility] Rx#:[id number] Oral 120 / 120 120 / 120 Output: Urine 300 / 300 Other: # Voids 1 # Incontinent Voids 6 6 # Urine Diapers 2 Date of Last Bowel Movement 12/04/17 # Bowel Movements 1 1 # Incontinent Bowel Movements 1 Narrative: GENERAL: Disheveled 62-year-old male in restraints. Agitated on and off. More awake and alert. CARDIOVASCULAR: Regular rate and rhythm. RESPIRATORY: No accessory muscle use. GASTROINTESTINAL: Abdomen soft, non-tender, nondistended. MUSCULOSKELETAL: Extremities without clubbing, cyanosis, or edema. No obvious deformities. NEUROLOGICAL: Drowsy alerts, able to state his name, follow some simple motor requests becomes inattentive, looks hypovolemic, no gaze deviation, no facial asymmetry localized all 4 extremity upper extremity and restraints, plantarflex her no clonus, no involuntary movements otherwise, PSYCHIATRIC: Confused, agitated on/off, moves arms and legs, does not follow commands. Results - Labs CBC & Chem 7: 12/05/17 05:05 12/08/17 06:36 Laboratory Results - last 24 hr 12/07/17 12/07/17 12/08/17 13:12 17:03 06:36 Sodium 146 H Potassium 4.3 Chloride 116 H Carbon Dioxide 21.0 Anion Gap 9 BUN 12 Creatinine 1.22 Estimated GFR 60 L POC Glucose 104 115 H Random Glucose 97 Calcium 8.3 L Magnesium 1.9 Total Bilirubin 0.9 Direct Bilirubin 0.4 H Indirect Bilirubin 0.5 AST 65 H ALT 53 Alkaline Phosphatase 74 Total Protein 5.9 L Albumin 2.3 L 12/08/17 07:59 Sodium Potassium Chloride Carbon Dioxide Anion Gap BUN Creatinine Estimated GFR POC Glucose 109 Random Glucose Calcium Magnesium Total Bilirubin Direct Bilirubin Indirect Bilirubin AST ALT Alkaline Phosphatase Total Protein Albumin Microbiology 12/02/17 11:26 Blood - Peripheral Aerobic Blood Culture - Final No growth in 5 days 12/02/17 11:26 Blood - Peripheral Anaerobic Blood Culture - Final No growth in 5 days 12/02/17 11:45 Blood - Peripheral Aerobic Blood Culture - Final No growth in 5 days 12/02/17 11:45 Blood - Peripheral Anaerobic Blood Culture - Final No growth in 5 days 12/04/17 13:55 Lumbar Puncture Gram Stain - Final 12/04/17 13:55 Lumbar Puncture CSF Culture - Final No growth in 72 hours Assessment and Plan - Plan Possible metabolic/toxic encephalopathy. Patient with a history of alcoholism. Likely Wernicke's dementia. Lactic acidosis on admission LA 4.3, n IVF , LA back to normal Metabolic acidosis with elevated anion gap 21 on admission, AG closed now Severe hypokalemia, K replaced and so far stable continue to monitor and replace as need. he is on IVF with additive KCL as patient is AMS and is not eating Elevated bilirubin Transaminitis with AST at 72 on admission, improving Acute kidney injury, creatinine 2.2 however, unknown baseline, imprpving Poss Urinary tract infection Hypernatremia improving slowly CT scan of the head on admission reviewed no acute changes MRI brain Status post LP, CSF analysis pending no signs of infection,. HSV still pending however. Continue IV abx. Continue IV acyclovir Urine toxicology reviewed, normal findings Neurology and Psych consulted, appreciate recommendations. Continue Seroquel per psych recommendations. Consult neuropsychology Neuro checks, seizure precautions, telemetry monitoring, CIWA protocol EEG reviewed findings consistent with encephalomalacia Continue rocephin iv for UTI, blood cultures and urine cultures pending, follow results Check lipase nl. Follow CBC, CMP, LA, Mg, Phosp, B12. Monitor labs until lactic acid is back to normal and anion gap closes Continue IVF, D5W-1/2NS + KCL 20 mEq, continue to monitor and replete electrolytes as needed Discharge plan. Pending improvement. Patient with myoencephalopathy , eeg . CSF final results pending but no signs of infection so far. Difficult DC
[2017-12-09] MEDS: KCL 20 mEq/D5W/NaCl 0.45% Inj 1,000 ML IV.CONT SCH ×3 (07:48→18:56)
[2017-12-09 09:05] LABS: Calcium 8.4 mg/dL (8.5-10.1); Carbon Dioxide 20.2 meq/L (21.0-32.0); Potassium 4.1 meq/L (3.5-5.1)
[2017-12-09] MEDS: Senna/Docusate Sodium 8.6/50 MG Tablet PO SCH ×2 (09:05→20:51)
[2017-12-09] MEDS: QUEtiapine 25 MG Tablet PO SCH (09:05)
--- NOTE | 2017-12-09 09:47 | P.PN ---
Subjective Interval history: Patient is resting comfortably in bed. He is able to tolerate some oral intake with nurse assistance. He is oriented to self, able to answer "Edward" when asked his name but unable to answer other questions. No chest pain, SOB, nausea , vomiting, diarrhea. Physical Exam Vital signs: Vital Signs 12/08/17 12:00 12/08/17 16:00 12/08/17 20:00 Temperature 97.8 F 100.1 F H 99.3 F Pulse Rate 110 H 111 H 102 H Respiratory Rate 17 17 20 Blood Pressure 167/108 H 153/91 H 159/98 H Pulse Oximetry 94 L 98 98 12/09/17 00:00 12/09/17 04:00 Temperature 98.9 F 98.7 F Pulse Rate 113 H 108 H Respiratory Rate 20 Blood Pressure 158/100 H 183/93 H Pulse Oximetry 96 98 Intake & Output 12/08/17 12/09/17 12/09/17 18:59 06:59 18:59 Intake Total 345 / 345 875 / 875 1000 / 1000 Balance 345 / 345 875 / 875 1000 / 1000 Weight 71.1 kg Intake: IV 225 / 225 875 / 875 1000 / 1000 D5W/1/2NS + KCL 20 mEq Inj 1, 125 / 125 875 / 875 1000 / 1000 000 ML @ 100 mls/hr IV.CONT . Q10H [facility] Rx#:[id number] Rocephin Inj 1,000 MG In NS Inj 100 / 100 100 ML @ 200 mls/hr IV.SIG Q24H [facility] Rx#:[id number] Oral 120 / 120 Other: # Incontinent Voids 3 # Bowel Movements 0 Narrative: GENERAL: Disheveled 62-year-old male in restraints. Agitated on and off. More awake and alert. Oriented to self. CARDIOVASCULAR: Regular rate and rhythm. RESPIRATORY: No accessory muscle use. GASTROINTESTINAL: Abdomen soft, non-tender, nondistended. MUSCULOSKELETAL: Extremities without clubbing, cyanosis, or edema. No obvious deformities. NEUROLOGICAL: Drowsy alerts, able to state his name, follow some simple motor requests becomes inattentive, looks hypovolemic, no gaze deviation, no facial asymmetry localized all 4 extremity upper extremity and restraints, plantarflex her no clonus, no involuntary movements otherwise, PSYCHIATRIC: Confused, agitated on/off, moves arms and legs, does not follow commands. Results - Labs CBC & Chem 7: 12/05/17 05:05 12/09/17 07:45 Laboratory Results - last 24 hr 12/04/17 12/04/17 12/04/17 13:55 13:55 13:55 Sodium Potassium Chloride Carbon Dioxide Anion Gap BUN Creatinine Estimated GFR POC Glucose Random Glucose Calcium CSF VDRL Non-reactive CSF Lyme Disease DNA Not detected CSF Cryptococcus Ag Not detected HIV 1&2 Ab/P24 Ag 4thGn 12/08/17 12/08/17 12/08/17 10:16 12:19 18:41 Sodium Potassium Chloride Carbon Dioxide Anion Gap BUN Creatinine Estimated GFR POC Glucose 113 H 104 Random Glucose Calcium CSF VDRL CSF Lyme Disease DNA CSF Cryptococcus Ag HIV 1&2 Ab/P24 Ag 4thGn Nonreactive 12/09/17 12/09/17 07:27 07:45 Sodium 145 Potassium 4.1 Chloride 115 H Carbon Dioxide 20.2 L Anion Gap 10 BUN 14 Creatinine 1.30 Estimated GFR 56 L POC Glucose 99 Random Glucose 97 Calcium 8.4 L CSF VDRL CSF Lyme Disease DNA CSF Cryptococcus Ag HIV 1&2 Ab/P24 Ag 4thGn Assessment and Plan - Plan Possible metabolic/toxic encephalopathy. Patient with a history of alcoholism. Likely Wernicke's dementia Lactic acidosis on admission LA 4.3 Metabolic acidosis with elevated anion gap 21 Severe hypokalemia Elevated bilirubin Transaminitis with AST at 72 on admission Acute kidney injury, creatinine 2.2 however, unknown baseline Poss Urinary tract infection Hypernatremia improving CT scan of the head on admission reviewed no acute changes MRI brain Status post LP, CSF analysis pending no signs of infection,. HSV still pending however. Continue IV abx. Continue IV acyclovir Urine toxicology reviewed, normal findings Neurology and Psych consulted, appreciate recommendations Neuro checks, seizure precautions, telemetry monitoring, CIAK protocol EEG reviewed findings consistent with encephalomalacia Continue rocephin iv for UTI, blood cultures and urine cultures pending, follow results Check lipase nl. Follow CBC, CMP, LA, Mg, Phosp, B12. Monitor labs until lactic acid is back to normal and anion gap closes Continue IVF, D5W-1/2NS + KCL 20 mEq, continue to monitor and replete electrolytes as needed Speech seen today, puree diet. Neuro recs: f/u hiv, rpr Hydration, nutritional support Adjustment in psychotropic medications; could change to risperdal 0.5mg bid instead of seroquel if that makes him somnolent Follow exam DVT Prophylaxis: SCDs/TEDs Discharge Planning: Pending improvement. Patient with myoencephalopathy per EEG . CSF final results pending but no signs of infection so far. Difficult DC
--- NOTE | 2017-12-09 12:13 | P.NPEVAL ---
Patient History - Record/History Review Reason for Referral: The patient is a 62 year old unknown handed male who was admitted to [facility] on 12/02/2017 for altered mental status. He was found on the ground incontinent of urine and feces. Head CT has been within normal limits. He remains confused seven days later with agitation and the occasional needs for restraints. There is a question of Wernicke's encephalopathy. He is being followed by psychiatry who started him on Seroquel 25 BID. The patient has a history of alcohol dependence. He is referred for baseline neurobehavioral status examination given his clinical presentation to assess cognitive, behavioral and emotional aspects of his functioning and to provide treatment recommendations. PMFSH - History History Provided By: Stiff Neck Loader / EMT - Medical / Surgical Hx Neg / Unobtainable Medical Problems Denied: Unable to Obtain - Tobacco History Smoking Status: Unknown if ever smoked - Alcohol History How Often Do You Have a Drink Containing Alcohol: Unable to Obtain - Substance Use History Substance History: Unable to Obtain - Travel History Recent Travel in the [facility] Within the Last 8 Weeks: No Recent Travel Out of the Country Within the Last 8 Weeks: No - Immunization History Tetanus Immunization: Unable to Assess Medications Active Medications Acetaminophen (Tylenol) 650 mg PO Q4H PRN PRN Reason: Temp > 100.4 Al Hydroxide/Mg Hydroxide (Milk Of Magnharvey Liq) 30 ml PO Q12H PRN PRN Reason: Mild Constipation Bisacodyl (Dulcolax Supp) 10 mg RECTAL DAILY PRN PRN Reason: SEVERE CONSITIPATION Enalaprilat (Vasotec Inj) 1.25 mg IV.PUSH Q6H PRN PRN Reason: SBP>160, DBP>90 Last Admin: 12/09/17 11:30 Dose: 1.25 mg Flumazenil (Romazecon Inj) 0.2 mg IV.PUSH Q1M PRN PRN Reason: OVERSEDATION Haloperidol Lactate (Haldol Inj) 1 mg IV.PUSH Q15M PRN PRN Reason: for severe agitation Sodium Chloride (Ns Inj) 1,000 mls @ 0 mls/hr IV.SIG BOLUS ALEXX Last Infusion: 12/02/17 13:00 Dose: Infused Potassium Chloride/Dextrose/Sod Cl (D5w/1/2ns + Kcl 20 Meq Inj) 1,000 mls @ 100 mls/hr IV.CONT .Q10H ALEXX Last Admin: 10/16/18 07:48 Dose: 100 mls/hr Ceftriaxone Sodium 1,000 mg/ (Sodium Chloride) 100 mls @ 200 mls/hr IV.SIG Q24H [facility] Last Infusion: 12/08/17 15:48 Dose: Infused Lactulose (Lactulose Liq) 30 ml PO DAILY PRN PRN Reason: SEVERE CONSITIPATION Lorazepam (Ativan) 1 mg PO Q4H PRN PRN Reason: for CIWA 8-10 Last Admin: 12/03/17 21:11 Dose: 1 mg Lorazepam (Ativan Inj) 2 mg IV.PUSH Q2H PRN PRN Reason: for CIWA 11-14 Lorazepam (Ativan Inj) 2 mg IV.PUSH Q1H PRN PRN Reason: for CIWA 15-20 Lorazepam (Ativan Inj) 2 mg IV.PUSH Q15M PRN PRN Reason: for CIWA > 20 Lorazepam (Ativan Inj) 1 mg IV.PUSH Q4H PRN PRN Reason: for CIWA 8-10 Last Admin: 12/06/17 04:52 Dose: 1 mg Lorazepam (Ativan) 2 mg PO Q2H PRN PRN Reason: for CIWA 11-14 Ondansetron HCl (Zofran Inj) 4 mg IV.PUSH Q6H PRN PRN Reason: NAUSEA OR VOMITING Pantoprazole Sodium (Protonix) 40 mg PO DAILY [facility] Last Admin: 12/09/17 09:05 Dose: 40 mg Quetiapine Fumarate (Seroquel) 25 mg PO BID [facility] Last Admin: 12/09/17 09:05 Dose: 25 mg Senna/Docusate Sodium (Esperanza-Colace) 1 tab PO BID [facility] Last Admin: 12/09/17 09:05 Dose: 1 tab Sennosides (Senokot) 17.2 mg PO Q12H PRN PRN Reason: Moderate Constipation Thiamine HCl (Thiamine Inj) 100 mg IM DAILY [facility] Last Admin: 12/09/17 08:39 Dose: 100 mg Mental Status Assessment - Mental Status Orientation: oriented to: Self, disoriented to: Place, Time, Situation Adjustment/Coping Assessment - Adjustment/Coping Adjustment/Coping: Severe: Awareness, Insight - Observation In terms of emotional functioning, the patient demonstrated challenges. On exam , this patient was unable to sustain an awake state, presumably as he recently received medication. Otherwise, this patient demonstrated no signs of agitation , impulsivity or disinhibition, nor was there remarkable evidence of a formal thought disorder or psychosis. Thought content was free from suicidal, homicidal or paranoid ideation, and thought processes were unable to be determined. The patient appears to possess minimal insight and awareness into their situation and within the limits of this brief evaluation, poor judgment. Behavior - Behavior Agitation: Mild Treatment Engagement: Minimal - Observation Behaviorally, the patient demonstrated no signs of agitation, impulsivity or disinhibition. There was no remarkable evidence of a formal thought disorder or psychosis. - Goals LTG Status: Deferred STG Status: Deferred - Team Members Team Members: Neuropsychologist Diagnosis/Discharge Plan - Diagnosis (1) Alcohol dependence in controlled environment Status: Acute (2) Delirium Status: Acute Impression: This is a 62 year old man admitted to the hospital for altered mental status after being found down. He has a history of alcohol dependence, and possible Wernicke's encephalopathy as a result. Today, he was generally unable to be tested given his clinical presentation. Maximizing Acute Care Outcome: It is recommended that the patient be monitored for emergent behavioral impulsivity as the medical condition evolves. This patients neuropathological challenges may limit rehabilitation potential going forward, and these challenges will require specialized therapeutic skills to maximize outcome. At this point in the recovery process, the patient does not have cognitive capacity as the patient is unable to understand a situation and its likely consequences, nor is the patient able to manipulate information rationally. Cognitive capacity will be assessed throughout the recovery process. - Discharge Planning Anticipated Problems: Ongoing areas of concern will include behavioral impulsivity, lack of insight and judgment, which may or may not improve with time and treatment. Treatment Plan: I will follow this patient daily to obtain a better understanding of his neuropsychological condition. I defer to psychiatry regarding treatment approaches. I will start the ABS to help assist with understanding the quality and quantity of his agitation/restlessness. This clinician will continue to follow with you throughout the course of this patients rehabilitation treatment , and I will be available to meet with the patients family/support system to facilitate their understanding and the ongoing care of their family member. The goals of neuropsychological intervention shall be both educational and supportive to the family/support system as is deemed clinically appropriate. Thank you for the opportunity to assist in this patients care. Alexsander Butler, Ph.D., ABPP Board Certified in Clinical Neuropsychology [place] [employer] [place] Licensed Psychologist #[id number]
--- NOTE | 2017-12-09 14:50 | P.PN ---
Subjective Interval history: In bed no change Confused, agitated on/off Still in restraints Physical Exam Vital signs: Vital Signs 12/08/17 16:00 12/08/17 20:00 12/09/17 00:00 Temperature 100.1 F H 99.3 F 98.9 F Pulse Rate 111 H 102 H 113 H Respiratory Rate 17 20 Blood Pressure 153/91 H 159/98 H 158/100 H Pulse Oximetry 98 98 96 12/09/17 04:00 12/09/17 08:00 12/09/17 09:00 Temperature 98.7 F Pulse Rate 108 H 103 H 103 H Respiratory Rate 20 Blood Pressure 183/93 H Pulse Oximetry 98 12/09/17 12:00 Temperature 98.1 F Pulse Rate 100 H Respiratory Rate 20 Blood Pressure 165/113 H Pulse Oximetry 97 Intake & Output 12/08/17 12/09/17 12/09/17 18:59 06:59 18:59 Intake Total 345 / 345 875 / 875 1000 / 1000 Balance 345 / 345 875 / 875 1000 / 1000 Weight 71.1 kg Intake: IV 225 / 225 875 / 875 1000 / 1000 D5W/1/2NS + KCL 20 mEq Inj 1, 125 / 125 875 / 875 1000 / 1000 000 ML @ 100 mls/hr IV.CONT . Q10H [facility] Rx#:[id number] Rocephin Inj 1,000 MG In NS Inj 100 / 100 100 ML @ 200 mls/hr IV.SIG Q24H ALEXX Rx#:[id number] Oral 120 / 120 Other: # Incontinent Voids 3 Date of Last Bowel Movement 12/04/17 # Bowel Movements 0 Narrative: GENERAL: Disheveled 62-year-old male in restraints. Agitated on and off. More awake and alert today. Oriented to self. CARDIOVASCULAR: Regular rate and rhythm. RESPIRATORY: No accessory muscle use. GASTROINTESTINAL: Abdomen soft, non-tender, nondistended. MUSCULOSKELETAL: Extremities without clubbing, cyanosis, or edema. No obvious deformities. NEUROLOGICAL: Drowsy alerts, able to state his name, follow some simple motor requests becomes inattentive, looks hypovolemic, no gaze deviation, no facial asymmetry localized all 4 extremity upper extremity and restraints, plantarflex her no clonus, no involuntary movements otherwise, PSYCHIATRIC: Confused, agitated on/off, moves arms and legs, does not follow commands. Results - Labs CBC & Chem 7: 12/05/17 05:05 12/09/17 07:45 Laboratory Results - last 24 hr 12/04/17 12/04/17 12/04/17 13:55 13:55 13:55 Sodium Potassium Chloride Carbon Dioxide Anion Gap BUN Creatinine Estimated GFR POC Glucose Random Glucose Calcium CSF VDRL Non-reactive CSF Lyme Disease DNA Not detected CSF Cryptococcus Ag Not detected RPR 12/08/17 12/08/17 12/09/17 11:49 18:41 07:27 Sodium Potassium Chloride Carbon Dioxide Anion Gap BUN Creatinine Estimated GFR POC Glucose 104 99 Random Glucose Calcium CSF VDRL CSF Lyme Disease DNA CSF Cryptococcus Ag RPR Nonreactive 12/09/17 12/09/17 07:45 12:12 Sodium 145 Potassium 4.1 Chloride 115 H Carbon Dioxide 20.2 L Anion Gap 10 BUN 14 Creatinine 1.30 Estimated GFR 56 L POC Glucose 109 Random Glucose 97 Calcium 8.4 L CSF VDRL CSF Lyme Disease DNA CSF Cryptococcus Ag RPR Assessment and Plan - Plan Possible metabolic/toxic encephalopathy. Patient with a history of alcoholism. Likely Wernicke's dementia. Lactic acidosis on admission LA 4.3, n IVF , LA back to normal Metabolic acidosis with elevated anion gap 21 on admission, AG closed now Severe hypokalemia, K replaced and so far stable continue to monitor and replace as need. he is on IVF with additive KCL as patient is AMS and is not eating Elevated bilirubin Transaminitis with AST at 72 on admission, improving Acute kidney injury, creatinine 2.2 however, unknown baseline, imprpving Poss Urinary tract infection Hypernatremia improving slowly CT scan of the head on admission reviewed no acute changes MRI brain Status post LP, CSF analysis pending no signs of infection,. HSV still pending however. Continue IV abx. Continue IV acyclovir Urine toxicology reviewed, normal findings Neurology and Psych consulted, appreciate recommendations. Continue Seroquel per psych recommendations. Consult neuropsychology Neuro checks, seizure precautions, telemetry monitoring, [facility] protocol EEG reviewed findings consistent with encephalomalacia Continue rocephin iv for UTI, blood cultures and urine cultures pending, follow results Check lipase nl. Follow CBC, CMP, LA, Mg, Phosp, B12. Monitor labs until lactic acid is back to normal and anion gap closes Continue IVF, D5W-1/2NS + KCL 20 mEq, continue to monitor and replete electrolytes as needed Discharge plan. Pending improvement. Patient with myoencephalopathy , eeg . CSF final results pending but no signs of infection so far. Difficult DC
--- NOTE | 2017-12-09 16:16 | P.PNNEU ---
Subjective Subjective Comments: No acute events sleepy on and off during the day Active Medications: Active Medications Acetaminophen (Tylenol) 650 mg PO Q4H PRN PRN Reason: Temp > 100.4 Al Hydroxide/Mg Hydroxide (Milk Of Magnesia Liq) 30 ml PO Q12H PRN PRN Reason: Mild Constipation Bisacodyl (Dulcolax Supp) 10 mg RECTAL DAILY PRN PRN Reason: SEVERE CONSITIPATION Enalaprilat (Vasotec Inj) 1.25 mg IV.PUSH Q6H PRN PRN Reason: SBP>160, DBP>90 Last Admin: 12/09/17 11:30 Dose: 1.25 mg Flumazenil (Romazecon Inj) 0.2 mg IV.PUSH Q1M PRN PRN Reason: OVERSEDATION Haloperidol Lactate (Haldol Inj) 1 mg IV.PUSH Q15M PRN PRN Reason: for severe agitation Sodium Chloride (Ns Inj) 1,000 mls @ 0 mls/hr IV.SIG BOLUS [facility] Last Infusion: 12/02/17 13:00 Dose: Infused Potassium Chloride/Dextrose/Sod Cl (D5w/1/2ns + Kcl 20 Meq Inj) 1,000 mls @ 100 mls/hr IV.CONT .Q10H [facility] Last Admin: 12/09/17 07:48 Dose: 100 mls/hr Ceftriaxone Sodium 1,000 mg/ (Sodium Chloride) 100 mls @ 200 mls/hr IV.SIG Q24H [facility] Last Admin: 12/09/17 15:17 Dose: 200 mls/hr Lactulose (Lactulose Liq) 30 ml PO DAILY PRN PRN Reason: SEVERE CONSITIPATION Lorazepam (Ativan) 1 mg PO Q4H PRN PRN Reason: for CIWA 8-10 Last Admin: 12/03/17 21:11 Dose: 1 mg Lorazepam (Ativan Inj) 2 mg IV.PUSH Q2H PRN PRN Reason: for CIWA 11-14 Lorazepam (Ativan Inj) 2 mg IV.PUSH Q1H PRN PRN Reason: for CIWA 15-20 Lorazepam (Ativan Inj) 2 mg IV.PUSH Q15M PRN PRN Reason: for CIWA > 20 Lorazepam (Ativan Inj) 1 mg IV.PUSH Q4H PRN PRN Reason: for CIWA 8-10 Last Admin: 12/06/17 04:52 Dose: 1 mg Lorazepam (Ativan) 2 mg PO Q2H PRN PRN Reason: for CIWA 11-14 Ondansetron HCl (Zofran Inj) 4 mg IV.PUSH Q6H PRN PRN Reason: NAUSEA OR VOMITING Pantoprazole Sodium (Protonix) 40 mg PO DAILY [facility] Last Admin: 12/09/17 09:05 Dose: 40 mg Risperidone (Risperdal) 0.25 mg PO BID [facility] Senna/Docusate Sodium (Esperanza-Colace) 1 tab PO BID [facility] Last Admin: 12/09/17 09:05 Dose: 1 tab Sennosides (Senokot) 17.2 mg PO Q12H PRN PRN Reason: Moderate Constipation Thiamine HCl (Thiamine Inj) 100 mg IM DAILY [facility] Last Admin: 12/09/17 08:39 Dose: 100 mg Allergies/Adverse Reactions: Allergies Allergy/AdvReac Type Severity Reaction Status Date / Time No Known Allergies Allergy Verified 12/02/17 11:49 Review of Systems All other systems reviewed negative except as stated in HPI Physical Exam Vital signs: Vital Signs 12/08/17 20:00 12/09/17 00:00 12/09/17 04:00 Temperature 99.3 F 98.9 F 98.7 F Pulse Rate 102 H 113 H 108 H Respiratory Rate 20 20 Blood Pressure 159/98 H 158/100 H 183/93 H Pulse Oximetry 98 96 98 12/09/17 08:00 12/09/17 09:00 12/09/17 12:00 Temperature 98.1 F Pulse Rate 103 H 103 H 100 H Respiratory Rate 20 Blood Pressure 165/113 H Pulse Oximetry 97 Intake & Output 12/08/17 12/09/17 12/09/17 18:59 06:59 18:59 Intake Total 345 / 345 875 / 875 1000 / 1000 Balance 345 / 345 875 / 875 1000 / 1000 Weight 71.1 kg Intake: IV 225 / 225 875 / 875 1000 / 1000 D5W/1/2NS + KCL 20 mEq Inj 1, 125 / 125 875 / 875 1000 / 1000 000 ML @ 100 mls/hr IV.CONT . Q10H [facility] Rx#:[id number] Rocephin Inj 1,000 MG In NS Inj 100 / 100 100 ML @ 200 mls/hr IV.SIG Q24H [facility] Rx#:[id number] Oral 120 / 120 Other: # Incontinent Voids 3 Date of Last Bowel Movement 12/04/17 # Bowel Movements 0 Narrative: GENERAL: Disheveled, in no acute distress CARDIOVASCULAR: Regular rate and rhythm. RESPIRATORY: No accessory muscle use. GASTROINTESTINAL: Abdomen soft, non-tender, nondistended. MUSCULOSKELETAL: Extremities without clubbing, cyanosis, or edema. No obvious deformities. NEUROLOGICAL: Drowsy alerts, but quickly falls back asleep, able to state his name, follow some simple motor requests becomes inattentive, looks hypovolemic, no gaze deviation, no facial asymmetry localized all 4 extremity upper extremity and restraints, plantarflex her no clonus, no involuntary movements otherwise, PSYCHIATRIC: Confused, - Constitutional no acute distress - Routine HEENT Exam Head: Present: normocephalic Objective Laboratory Results - last 24 hr 12/04/17 12/04/17 12/08/17 13:55 13:55 11:49 Sodium Potassium Chloride Carbon Dioxide Anion Gap BUN Creatinine Estimated GFR POC Glucose Random Glucose Calcium CSF VDRL Non-reactive CSF Cryptococcus Ag Not detected RPR Nonreactive 12/08/17 12/09/17 12/09/17 18:41 07:27 07:45 Sodium 145 Potassium 4.1 Chloride 115 H Carbon Dioxide 20.2 L Anion Gap 10 BUN 14 Creatinine 1.30 Estimated GFR 56 L POC Glucose 104 99 Random Glucose 97 Calcium 8.4 L CSF VDRL CSF Cryptococcus Ag RPR 12/09/17 12:12 Sodium Potassium Chloride Carbon Dioxide Anion Gap BUN Creatinine Estimated GFR POC Glucose 109 Random Glucose Calcium CSF VDRL CSF Cryptococcus Ag RPR Review/Management - Diagnosis (1) Acute metabolic encephalopathy Code(s): G93.41 - Metabolic encephalopathy Status: Acute Current Visit: Yes (2) Hypertensive urgency Code(s): I16.0 - Hypertensive urgency Status: Acute Current Visit: Yes (3) Acute kidney injury Code(s): N17.9 - Acute kidney failure, unspecified Status: Acute Current Visit: Yes - Review/Management Plan: hypertensive and in renal failure on admission; ?wernickes encephalopathy Unknown if any history of toxic ingestion or EtOH withdrawal Urine drug screen negative. Ethanol level negative CSF negative for infection thus far slightly elevated protein nonspecific. WBC 2, normal glucose. Continue IV acyclovir until herpes PCR returned MRI brain negative for any acute lesion old infarcts HIV, RPR nonreactive Recommendation We will switch from Seroquel to Risperdal to reduce somnolent effect Hydration, nutritional support; discussed with RN states he is eating more than 50% of his meals Adjustment in psychotropic medications; could change to risperdal 0.5mg bid instead of seroquel if that makes him somnolent Discussed with medical Follow exam
[2017-12-10] MEDS: KCL 20 mEq/D5W/NaCl 0.45% Inj 1,000 ML IV.CONT SCH ×3 (05:02→23:51)
--- NOTE | 2017-12-10 07:54 | P.PNNEU ---
Subjective Subjective Comments: No cp, no dyspnea, no mcneill, no focal weakness, no vision loss Active Medications: Active Medications Acetaminophen (Tylenol) 650 mg PO Q4H PRN PRN Reason: Temp > 100.4 Al Hydroxide/Mg Hydroxide (Milk Of Magnesia Liq) 30 ml PO Q12H PRN PRN Reason: Mild Constipation Bisacodyl (Dulcolax Supp) 10 mg RECTAL DAILY PRN PRN Reason: SEVERE CONSITIPATION Enalaprilat (Vasotec Inj) 1.25 mg IV.PUSH Q6H PRN PRN Reason: SBP>160, DBP>90 Last Admin: 12/09/17 11:30 Dose: 1.25 mg Flumazenil (Romazecon Inj) 0.2 mg IV.PUSH Q1M PRN PRN Reason: OVERSEDATION Haloperidol Lactate (Haldol Inj) 1 mg IV.PUSH Q15M PRN PRN Reason: for severe agitation Sodium Chloride (Ns Inj) 1,000 mls @ 0 mls/hr IV.SIG BOLUS [facility] Last Infusion: 12/02/17 13:00 Dose: Infused Potassium Chloride/Dextrose/Sod Cl (D5w/1/2ns + Kcl 20 Meq Inj) 1,000 mls @ 100 mls/hr IV.CONT .Q10H [facility] Last Admin: 12/10/17 05:02 Dose: 100 mls/hr Ceftriaxone Sodium 1,000 mg/ (Sodium Chloride) 100 mls @ 200 mls/hr IV.SIG Q24H [facility] Last Infusion: 12/09/17 15:47 Dose: Infused Lactulose (Lactulose Liq) 30 ml PO DAILY PRN PRN Reason: SEVERE CONSITIPATION Lorazepam (Ativan) 1 mg PO Q4H PRN PRN Reason: for CIWA 8-10 Last Admin: 12/03/17 21:11 Dose: 1 mg Lorazepam (Ativan Inj) 2 mg IV.PUSH Q2H PRN PRN Reason: for CIWA 11-14 Lorazepam (Ativan Inj) 2 mg IV.PUSH Q1H PRN PRN Reason: for CIWA 15-20 Lorazepam (Ativan Inj) 2 mg IV.PUSH Q15M PRN PRN Reason: for CIWA > 20 Lorazepam (Ativan Inj) 1 mg IV.PUSH Q4H PRN PRN Reason: for CIWA 8-10 Last Admin: 12/06/17 04:52 Dose: 1 mg Lorazepam (Ativan) 2 mg PO Q2H PRN PRN Reason: for CIWA 11-14 Ondansetron HCl (Zofran Inj) 4 mg IV.PUSH Q6H PRN PRN Reason: NAUSEA OR VOMITING Pantoprazole Sodium (Protonix) 40 mg PO DAILY [facility] Last Admin: 12/09/17 09:05 Dose: 40 mg Risperidone (Risperdal) 0.25 mg PO BID [facility] Last Admin: 12/09/17 20:51 Dose: 0.25 mg Senna/Docusate Sodium (Esperanza-Colace) 1 tab PO BID [facility] Last Admin: 12/09/17 20:51 Dose: 1 tab Sennosides (Senokot) 17.2 mg PO Q12H PRN PRN Reason: Moderate Constipation Thiamine HCl (Thiamine Inj) 100 mg IM DAILY [facility] Last Admin: 12/09/17 08:39 Dose: 100 mg Allergies/Adverse Reactions: Allergies Allergy/AdvReac Type Severity Reaction Status Date / Time No Known Allergies Allergy Verified 12/02/17 11:49 Review of Systems All other systems reviewed negative except as stated in HPI Physical Exam Vital signs: Vital Signs 12/09/17 08:00 12/09/17 09:00 12/09/17 12:00 Temperature 98.1 F Pulse Rate 103 H 103 H 100 H Respiratory Rate 20 Blood Pressure 165/113 H Pulse Oximetry 97 12/09/17 16:00 12/09/17 20:00 12/10/17 00:00 Temperature 98.6 F 97.4 F L 97.4 F L Pulse Rate 102 H 105 H 102 H Respiratory Rate 20 16 19 Blood Pressure 209/95 H 151/84 H 132/70 Pulse Oximetry 99 98 98 12/10/17 04:00 Temperature 97.1 F L Pulse Rate 86 Respiratory Rate 19 Blood Pressure 148/82 H Pulse Oximetry 97 Intake & Output 12/09/17 12/10/17 12/10/17 18:59 06:59 18:59 Intake Total 2340 / 2340 1000 / 1000 Output Total 350 / 350 600 / 600 Balance 1989 / 1989 400 / 400 Weight 71.4 kg Intake: IV 2099 / 2099 1000 / 1000 D5W/1/2NS + KCL 20 mEq Inj 1999 / 2000 1000 / 1000 000 ML @ 100 mls/hr IV.CONT . Q10H [facility] Rx#:[id number] Rocephin Inj 1,000 MG In NS Inj 100 / 100 100 ML @ 200 mls/hr IV.SIG Q24H [facility] Rx#:[id number] Oral 240 / 240 Output: Urine 350 / 350 600 / 600 Other: Date of Last Bowel Movement 12/04/17 # Incontinent Bowel Movements 1 Narrative: GENERAL: in no acute distress CARDIOVASCULAR: Regular rate and rhythm. RESPIRATORY: No accessory muscle use. GASTROINTESTINAL: Abdomen soft, non-tender, nondistended. MUSCULOSKELETAL: Extremities without clubbing, cyanosis, or edema. No obvious deformities. NEUROLOGICAL: More alert, able to state his name, follow some simple motor requests becomes inattentive, , no gaze deviation, no facial asymmetry localized all 4 extremity upper extremity and restraints, plantarflex her no clonus, no involuntary movements otherwise, PSYCHIATRIC: Confused, - Constitutional no acute distress - Routine HEENT Exam Head: Present: normocephalic Eye: Present: EOMI Objective Laboratory Results - last 24 hr 12/08/17 12/09/17 12/09/17 11:49 07:45 12:12 Sodium 145 Potassium 4.1 Chloride 115 H Carbon Dioxide 20.2 L Anion Gap 10 BUN 14 Creatinine 1.30 Estimated GFR 56 L POC Glucose 109 Random Glucose 97 Calcium 8.4 L RPR Nonreactive 12/09/17 12/09/17 12/10/17 18:41 19:41 07:17 Sodium Potassium Chloride Carbon Dioxide Anion Gap BUN Creatinine Estimated GFR POC Glucose 112 H 114 H 99 Random Glucose Calcium RPR Review/Management - Diagnosis (1) Acute metabolic encephalopathy Code(s): G93.41 - Metabolic encephalopathy Status: Acute Current Visit: Yes (2) Hypertensive urgency Code(s): I16.0 - Hypertensive urgency Status: Acute Current Visit: Yes (3) Acute kidney injury Code(s): N17.9 - Acute kidney failure, unspecified Status: Acute Current Visit: Yes - Review/Management Plan: hypertensive and in renal failure on admission; ?wernickes encephalopathy Unknown if any history of toxic ingestion or EtOH withdrawal Urine drug screen negative. Ethanol level negative CSF negative for infection thus far slightly elevated protein nonspecific. WBC 2, normal glucose. Continue IV acyclovir until herpes PCR returned MRI brain negative for any acute lesion old infarcts HIV, RPR nonreactive Recommendation Switch from Seroquel to Risperdal. Follow response hopefully he will have less somnolence Likely require inpatient snf placement No driving Follow exam
--- NOTE | 2017-12-10 08:23 | P.PNNPSY ---
- Behavior Intact: Impulsive/agitated - Cognitive Severe: Cognitive, Attention/concentration, Confused/orientation, Insight/ awareness, Judgment/problem solving, Memory - Psychosocial Severe: Psychosocial, Family/other adjustment, Realistic expectation - Progress Notes/Response to Treatment Contents of Sessions: Adjustment, Level of consciousness Time with Patient: 30 minutes Premorbid Psychological Status: Premorbid Cognitive, Emotional and Behavioral Status: Tenuous. The patient has high school years of education and an unknown work history prior to this injury. The patient has unknown psychiatric difficulties, as described above. Substance abuse history is unclear. Behavioral Reactions of Patient and Family/Support System: Tenuous. The patients family is experiencing ongoing issues of adjustment given the nature of the injury, and this aspect of recovery will require ongoing monitoring. Emotional/Behavioral Status of Patient and Family/Support System: Tenuous. Pertinent issues, if appropriate to this patients clinical care, are described in detail above. Maximizing Acute Care Outcome: It is recommended that the patient be monitored for emergent behavioral impulsivity as the medical condition evolves. This patients neuropathological challenges may limit rehabilitation potential going forward, and these challenges will require specialized therapeutic skills to maximize outcome. At this point in the recovery process, the patient does not have cognitive capacity as the patient is unable to understand a situation and its likely consequences, nor is the patient able to manipulate information rationally. Cognitive capacity will be assessed throughout the recovery process. Anticipated Problems: Ongoing areas of concern will include behavioral impulsivity, lack of insight and judgment, which may or may not improve with time and treatment. Treatment Plan: This clinician will continue to follow with you throughout the course of this patients acute care treatment, and I will be available to meet with the patient s family/support system to facilitate their understanding and the ongoing care of their family member. The goals of neuropsychological intervention shall be both educational and supportive to the family/support system as is deemed clinically appropriate. Impression: This is a 62 year old man admitted to the hospital for altered mental status after being found down. He has a history of alcohol dependence, and possible Wernicke's encephalopathy as a result. Today, he was generally unable to be tested given his clinical presentation. Progress Note Narrative: Day 8. Neurology switched from Seroquel to Risperdal 0.25 BID to reduce somnolent effect. ABS was ordered but not completed. This will be reordered this morning. Given his somnolence yesterday I was unable to obtain a sufficient neurobehavioral exam to opine concerning possible Wernicke's encephalopathy. HSV study not completed yet. On exam, this patient was still too somnolent to participate in any sort of discussion let alone cognitive exam. Nevertheless, I will follow. - Diagnosis (1) Alcohol dependence in controlled environment Status: Acute (2) Delirium Status: Acute
[2017-12-10] MEDS: Senna/Docusate Sodium 8.6/50 MG Tablet PO SCH ×2 (08:28→20:34)
[2017-12-10 08:29] LABS: Calcium 8.2 mg/dL (8.5-10.1); Carbon Dioxide 17.8 meq/L (21.0-32.0); Potassium 4.1 meq/L (3.5-5.1)
--- NOTE | 2017-12-10 11:27 | P.PN ---
Subjective Interval history: Patient is resting comfortably in bed. He is able to tolerate some oral intake with nurse assistance. He is oriented to self, able to answer "Edward" when asked his name but unable to answer other questions. No chest pain, SOB, nausea , vomiting, diarrhea. Physical Exam Vital signs: Vital Signs 12/09/17 12:00 12/09/17 16:00 12/09/17 20:00 Temperature 98.1 F 98.6 F 97.4 F L Pulse Rate 100 H 102 H 105 H Respiratory Rate 20 20 16 Blood Pressure 165/113 H 209/95 H 151/84 H Pulse Oximetry 97 99 98 12/10/17 00:00 12/10/17 04:00 12/10/17 08:00 Temperature 97.4 F L 97.1 F L 98.9 F Pulse Rate 102 H 86 102 H Respiratory Rate 19 19 20 Blood Pressure 132/70 148/82 H 167/115 H Pulse Oximetry 98 97 99 12/10/17 09:00 Temperature Pulse Rate 102 H Respiratory Rate Blood Pressure Pulse Oximetry Intake & Output 12/09/17 12/10/17 12/10/17 18:59 06:59 18:59 Intake Total 2340 / 2340 1000 / 1000 Output Total 350 / 350 600 / 600 Balance 1989 / 1989 400 / 400 Weight 71.4 kg Intake: IV 2100 / 2100 1000 / 1000 D5W/1/2NS + KCL 20 mEq Inj , 1999 / 1999 1000 / 1000 000 ML @ 100 mls/hr IV.CONT . Q10H [facility] Rx#:[id number] Rocephin Inj 1,000 MG In NS Inj 100 / 100 100 ML @ 200 mls/hr IV.SIG Q24H [facility] Rx#:[id number] Oral 240 / 240 Output: Urine 350 / 350 600 / 600 Other: Date of Last Bowel Movement 12/04/17 12/04/17 # Incontinent Bowel Movements 1 Narrative: GENERAL: 62 year old disheveled male in no acute distress CARDIOVASCULAR: Regular rate and rhythm. RESPIRATORY: No accessory muscle use. GASTROINTESTINAL: Abdomen soft, non-tender, nondistended. MUSCULOSKELETAL: Extremities without clubbing, cyanosis, or edema. No obvious deformities. NEUROLOGICAL: More alert, able to state his name, follow some simple motor requests becomes inattentive, , no gaze deviation, no facial asymmetry localized all 4 extremity upper extremity and restraints, plantarflex her no clonus, no involuntary movements otherwise, PSYCHIATRIC: Confused Results - Labs CBC & Chem 7: 12/05/17 05:05 12/10/17 06:46 Laboratory Results - last 24 hr 12/09/17 12/09/17 12/09/17 12:12 18:41 19:41 Sodium Potassium Chloride Carbon Dioxide Anion Gap BUN Creatinine Estimated GFR POC Glucose 109 112 H 114 H Random Glucose Calcium 12/10/17 12/10/17 06:46 07:17 Sodium 142 Potassium 4.1 Chloride 114 H Carbon Dioxide 17.8 L Anion Gap 10 BUN 13 Creatinine 1.24 Estimated GFR 59 L POC Glucose 99 Random Glucose 84 Calcium 8.2 L Assessment and Plan - Plan Possible metabolic/toxic encephalopathy. Patient with a history of alcoholism. Likely Wernicke's dementia Lactic acidosis on admission LA 4.3 Metabolic acidosis with elevated anion gap 21 Severe hypokalemia Elevated bilirubin Transaminitis with AST at 72 on admission Acute kidney injury, creatinine 2.2 however, unknown baseline Poss Urinary tract infection Hypernatremia improving CT scan of the head on admission reviewed no acute changes MRI brain Status post LP, CSF analysis pending no signs of infection,. HSV still pending however. Continue IV abx. Continue IV acyclovir Urine toxicology reviewed, normal findings Neurology and Psych consulted, appreciate recommendations Neuro checks, seizure precautions, telemetry monitoring, [facility] protocol EEG reviewed findings consistent with encephalomalacia Continue rocephin iv for UTI, blood cultures and urine cultures pending, follow results Check lipase nl. Follow CBC, CMP, LA, Mg, Phosp, B12. Monitor labs until lactic acid is back to normal and anion gap closes Continue IVF, D5W-1/2NS + KCL 20 mEq, continue to monitor and replete electrolytes as needed Speech seen today, puree diet. Neuro recs: hiv, rpr, nonreactive Hydration, nutritional support Adjustment in psychotropic medications; change to risperdal 0.5mg bid instead of seroquel if that makes him somnolent Follow exam DVT Prophylaxis: SCDs/TEDs Code Status: Full Discharge Planning: Pending improvement. Patient with myoencephalopathy per EEG . CSF final results pending but no signs of infection so far. Difficult DC
--- NOTE | 2017-12-10 16:57 | P.PN ---
Subjective Interval history: In bed still in restraints. Agitated on and off. Does not follow commands however is moving arms and legs. Eating with help of the nurse. Physical Exam Vital signs: Vital Signs 12/09/17 20:00 12/10/17 00:00 12/10/17 04:00 Temperature 97.4 F L 97.4 F L 97.1 F L Pulse Rate 105 H 102 H 86 Respiratory Rate 16 19 19 Blood Pressure 151/84 H 132/70 148/82 H Pulse Oximetry 98 98 97 12/10/17 08:00 12/10/17 09:00 12/10/17 12:00 Temperature 98.9 F 97.1 F L Pulse Rate 102 H 102 H 102 H Respiratory Rate 20 20 Blood Pressure 167/115 H 146/99 H Pulse Oximetry 99 99 Intake & Output 12/09/17 12/10/17 12/10/17 18:59 06:59 18:59 Intake Total 2340 / 2340 1000 / 1000 1100 / 1100 Output Total 350 / 350 600 / 600 Balance 1989 / 1989 400 / 400 1100 / 1100 Weight 71.4 kg Intake: IV 2100 / 2100 1000 / 1000 1100 / 1100 D5W/1/2NS + KCL 20 mEq Inj 1, 2000 / 2000 1000 / 1000 1000 / 1000 000 ML @ 100 mls/hr IV.CONT . Q10H [facility] Rx#:[id number] Rocephin Inj 1,000 MG In NS Inj 100 / 100 100 / 100 100 ML @ 200 mls/hr IV.SIG Q24H [facility] Rx#:[id number] Oral 240 / 240 Output: Urine 350 / 350 600 / 600 Other: Date of Last Bowel Movement 12/04/17 12/04/17 # Incontinent Bowel Movements 1 Narrative: GENERAL: 62 year old disheveled male in no acute distress CARDIOVASCULAR: Regular rate and rhythm. RESPIRATORY: No accessory muscle use. GASTROINTESTINAL: Abdomen soft, non-tender, nondistended. MUSCULOSKELETAL: Extremities without clubbing, cyanosis, or edema. No obvious deformities. NEUROLOGICAL: More alert, able to state his name, follow some simple motor requests becomes inattentive, , no gaze deviation, no facial asymmetry localized all 4 extremity upper extremity and restraints, plantarflex her no clonus, no involuntary movements otherwise, PSYCHIATRIC: Confused Results - Labs CBC & Chem 7: 12/05/17 05:05 12/10/17 06:46 Laboratory Results - last 24 hr 10/16/18 10/16/18 10/17/18 18:41 19:41 06:46 Sodium 142 Potassium 4.1 Chloride 114 H Carbon Dioxide 17.8 L Anion Gap 10 BUN 13 Creatinine 1.24 Estimated GFR 59 L POC Glucose 112 H 114 H Random Glucose 84 Calcium 8.2 L 12/10/17 12/10/17 07:17 12:23 Sodium Potassium Chloride Carbon Dioxide Anion Gap BUN Creatinine Estimated GFR POC Glucose 99 108 Random Glucose Calcium Assessment and Plan - Plan Possible metabolic/toxic encephalopathy. Patient with a history of alcoholism. Likely Wernicke's dementia. Lactic acidosis on admission LA 4.3, n IVF , LA back to normal Metabolic acidosis with elevated anion gap 21 on admission, AG closed now Severe hypokalemia, K replaced and so far stable continue to monitor and replace as need. he is on IVF with additive KCL as patient is AMS and is not eating Elevated bilirubin Transaminitis with AST at 72 on admission, improving Acute kidney injury, creatinine 2.2 however, unknown baseline, improving Poss Urinary tract infection Hypernatremia improving slowly CT scan of the head on admission reviewed no acute changes MRI brain Status post LP, CSF analysis pending no signs of infection,. HSV still pending however. Continue IV abx. Continue IV acyclovir Urine toxicology reviewed, normal findings Neurology and Psych consulted, appreciate recommendations. Continue Seroquel per psych recommendations. Consult neuropsychology Neuro checks, seizure precautions, telemetry monitoring, [facility] protocol EEG reviewed findings consistent with encephalomalacia DC IV abx as no signs of infection, rocephin iv for UTI, blood cultures and urine cultures negative Check lipase nl. Follow CBC, CMP, LA, Mg, Phosp, B12. Monitor labs until lactic acid is back to normal and anion gap closes Continue IVF, D5W-1/2NS + KCL 20 mEq, continue to monitor and replete electrolytes as needed Consult neuropsychiatry Also discussed with Dr. Godfrey neurology. Switch from Seroquel to Risperdal. Follow response hopefully he will have less somnolence Discharge plan. Pending improvement. Patient with myoencephalopathy , eeg . CSF no signs of infection so far. Difficult DC , needs snf
[2017-12-11 05:05] LABS: Calcium 8.1 mg/dL (8.5-10.1); Carbon Dioxide 20.2 meq/L (21.0-32.0); Potassium 4.1 meq/L (3.5-5.1)
--- NOTE | 2017-12-11 08:28 | P.PNNPSY ---
- Behavior Mild: Impulsive/agitated - Cognitive Severe: Cognitive, Attention/concentration, Confused/orientation, Insight/ awareness, Judgment/problem solving, Memory - Psychosocial Severe: Psychosocial, Family/other adjustment, Realistic expectation - Progress Notes/Response to Treatment Contents of Sessions: Adjustment, Level of consciousness Time with Patient: 30 minutes Premorbid Psychological Status: Premorbid Cognitive, Emotional and Behavioral Status: Tenuous. The patient has high school years of education and an unknown work history prior to this injury. The patient has unknown psychiatric difficulties, as described above. Substance abuse history is unclear. Behavioral Reactions of Patient and Family/Support System: Tenuous. The patients family is experiencing ongoing issues of adjustment given the nature of the injury, and this aspect of recovery will require ongoing monitoring. Emotional/Behavioral Status of Patient and Family/Support System: Tenuous. Pertinent issues, if appropriate to this patients clinical care, are described in detail above. Maximizing Acute Care Outcome: It is recommended that the patient be monitored for emergent behavioral impulsivity as the medical condition evolves. This patients neuropathological challenges may limit rehabilitation potential going forward, and these challenges will require specialized therapeutic skills to maximize outcome. At this point in the recovery process, the patient does not have cognitive capacity as the patient is unable to understand a situation and its likely consequences, nor is the patient able to manipulate information rationally. Cognitive capacity will be assessed throughout the recovery process. Anticipated Problems: Ongoing areas of concern will include behavioral impulsivity, lack of insight and judgment, which may or may not improve with time and treatment. Treatment Plan: This clinician will continue to follow with you throughout the course of this patients acute care treatment, and I will be available to meet with the patient s family/support system to facilitate their understanding and the ongoing care of their family member. The goals of neuropsychological intervention shall be both educational and supportive to the family/support system as is deemed clinically appropriate. Disinhibition Score: 21.00 Aggression Score: 14.00 Lability Score: 14.00 Agitated Behavior Total Score: 18 Impression: This is a 62 year old man admitted to the hospital for altered mental status after being found down. He has a history of alcohol dependence, and possible Wernicke's encephalopathy as a result. Today, he was generally unable to be tested given his clinical presentation. Progress Note Narrative: Day 9 of his hospitalization. He has had on and off again agitation, restraints on and off. Recent ABS = 18 (21,14,14), which is right at the borderzone of mild agitation. Risperdal on board to reduce sedation effect on balance with neurobehavioral control. However, each time I have examined the patient, he has been minimally responsive and unable to participate in the exam. I will follow. - Diagnosis (1) Alcohol dependence in controlled environment Status: Acute (2) Delirium Status: Acute
[2017-12-11] MEDS: Senna/Docusate Sodium 8.6/50 MG Tablet PO SCH ×2 (08:52→21:06)
[2017-12-11] MEDS: KCL 20 mEq/D5W/NaCl 0.45% Inj 1,000 ML IV.CONT SCH ×2 (11:03→21:58)
--- NOTE | 2017-12-11 12:17 | P.PN ---
Subjective Interval history: Patient is resting comfortably in bed. He is able to tolerate some oral intake with nurse assistance. He is oriented to self, able to answer "Edward" when asked his name but unable to answer other questions. In restraints, agitated on and off. Physical Exam Vital signs: Vital Signs 12/10/17 16:00 12/10/17 20:00 12/11/17 00:00 Temperature 97.6 F 98.6 F 97.6 F Pulse Rate 106 H 102 H 106 H Respiratory Rate 18 18 Blood Pressure 130/72 168/94 H 177/83 H Pulse Oximetry 98 97 97 12/11/17 04:00 12/11/17 08:00 Temperature 98.2 F 97.4 F L Pulse Rate 92 H 111 H Respiratory Rate 18 22 Blood Pressure 156/80 H 158/109 H Pulse Oximetry 97 98 Intake & Output 12/10/17 12/11/17 12/11/17 18:59 06:59 18:59 Intake Total 1460 / 1460 1000 / 1000 1000 / 1000 Output Total 1550 / 1550 850 / 850 Balance -90 / -90 150 / 150 1000 / 1000 Weight 73.6 kg Intake: IV 1100 / 1100 1000 / 1000 1000 / 1000 D5W/1/2NS + KCL 20 mEq Inj 1, 1000 / 1000 1000 / 1000 1000 / 1000 000 ML @ 100 mls/hr IV.CONT . Q10H [facility] Rx#:[id number] Rocephin Inj 1,000 MG In NS Inj 100 / 100 100 ML @ 200 mls/hr IV.SIG Q24H [facility] Rx#:[id number] Oral 360 / 360 Output: Urine 1550 / 1550 850 / 850 Other: Date of Last Bowel Movement 12/09/17 # Bowel Movements 0 1 Narrative: GENERAL: 62 year old disheveled male in no acute distress CARDIOVASCULAR: Regular rate and rhythm. RESPIRATORY: No accessory muscle use. GASTROINTESTINAL: Abdomen soft, non-tender, nondistended. MUSCULOSKELETAL: Extremities without clubbing, cyanosis, or edema. No obvious deformities. NEUROLOGICAL: More alert, able to state his name, follow some simple motor requests becomes inattentive, , no gaze deviation, no facial asymmetry localized all 4 extremity upper extremity and restraints, plantarflex her no clonus, no involuntary movements otherwise, PSYCHIATRIC: Confused Results - Labs CBC & Chem 7: 12/05/17 05:05 12/11/17 04:22 Laboratory Results - last 24 hr 12/10/17 12/10/17 12/10/17 12:23 18:09 19:52 Sodium Potassium Chloride Carbon Dioxide Anion Gap BUN Creatinine Estimated GFR POC Glucose 108 120 H 133 H Random Glucose Calcium 12/11/17 12/11/17 04:22 08:11 Sodium 142 Potassium 4.1 Chloride 113 H Carbon Dioxide 20.2 L Anion Gap 9 BUN 12 Creatinine 1.26 Estimated GFR 58 L POC Glucose 101 Random Glucose 102 Calcium 8.1 L Assessment and Plan - Plan Possible metabolic/toxic encephalopathy. Patient with a history of alcoholism. Likely Wernicke's dementia Lactic acidosis on admission LA 4.3 Metabolic acidosis with elevated anion gap 21 Severe hypokalemia Elevated bilirubin Transaminitis with AST at 72 on admission Acute kidney injury, creatinine 2.2 however, unknown baseline Poss Urinary tract infection Hypernatremia improving CT scan of the head on admission reviewed no acute changes MRI brain Status post LP, CSF analysis pending no signs of infection,. HSV still pending however. Continue IV abx. Continue IV acyclovir Urine toxicology reviewed, normal findings Neurology and Psych consulted, appreciate recommendations Neuro checks, seizure precautions, telemetry monitoring, CIWA protocol EEG reviewed findings consistent with encephalomalacia Continue rocephin iv for UTI, blood cultures and urine cultures pending, follow results Check lipase nl. Follow CBC, CMP, LA, Mg, Phosp, B12. Monitor labs until lactic acid is back to normal and anion gap closes Continue IVF, D5W-1/2NS + KCL 20 mEq, continue to monitor and replete electrolytes as needed Speech seen today, puree diet. Neuro recs: hiv, rpr, nonreactive Hydration, nutritional support Adjustment in psychotropic medications; change to risperdal 0.5mg bid instead of seroquel if that makes him somnolent Follow exam DVT Prophylaxis: SCDs/TEDs Discharge Planning: Pending improvement. Patient with myoencephalopathy per EEG . CSF final results pending but no signs of infection so far. Difficult DC, needs snf
--- NOTE | 2017-12-11 16:12 | P.PN ---
Subjective Interval history: The patient is seen bed is still agitated on and off. Does not follow commands however at times noted by nurse was able to following commands however he is pulling out IVs and Cespedes. He was briefly off restraints. No much improvement. Physical Exam Vital signs: Vital Signs 12/10/17 20:00 12/11/17 00:00 12/11/17 04:00 Temperature 98.6 F 97.6 F 98.2 F Pulse Rate 102 H 106 H 92 H Respiratory Rate 18 Blood Pressure 168/94 H 177/83 H 156/80 H Pulse Oximetry 97 97 97 12/11/17 08:00 12/11/17 12:00 Temperature 97.4 F L 98.4 F Pulse Rate 112 H 100 H Respiratory Rate 17 23 Blood Pressure 158/109 H 164/91 H Pulse Oximetry 98 97 Intake & Output 12/10/17 12/11/17 12/11/17 18:59 06:59 18:59 Intake Total 1460 / 1460 1000 / 1000 1000 / 1000 Output Total 1550 / 1550 850 / 850 Balance -90 / -90 150 / 150 1000 / 1000 Weight 73.6 kg Intake: IV 1100 / 1100 1000 / 1000 1000 / 1000 D5W/1/2NS + KCL 20 mEq Inj 1, 1000 / 1000 1000 / 1000 1000 / 1000 000 ML @ 100 mls/hr IV.CONT . Q10H [facility] Rx#:[id number] Rocephin Inj 1,000 MG In NS Inj 100 / 100 100 ML @ 200 mls/hr IV.SIG Q24H [facility] Rx#:[id number] Oral 360 / 360 Output: Urine 1550 / 1550 850 / 850 Other: Date of Last Bowel Movement 12/09/17 12/09/17 # Bowel Movements 0 1 Narrative: GENERAL: 62 year old disheveled male in no acute distress CARDIOVASCULAR: Regular rate and rhythm. RESPIRATORY: No accessory muscle use. GASTROINTESTINAL: Abdomen soft, non-tender, nondistended. MUSCULOSKELETAL: Extremities without clubbing, cyanosis, or edema. No obvious deformities. NEUROLOGICAL: More alert, able to state his name, follow some simple motor requests becomes inattentive, , no gaze deviation, no facial asymmetry localized all 4 extremity upper extremity and restraints, plantarflex her no clonus, no involuntary movements otherwise, PSYCHIATRIC: Confused Results - Labs CBC & Chem 7: 12/05/17 05:05 12/11/17 04:22 Laboratory Results - last 24 hr 12/10/17 12/10/17 12/11/17 18:09 19:52 04:22 Sodium 142 Potassium 4.1 Chloride 113 H Carbon Dioxide 20.2 L Anion Gap 9 BUN 12 Creatinine 1.26 Estimated GFR 58 L POC Glucose 120 H 133 H Random Glucose 102 Calcium 8.1 L 12/11/17 08:11 Sodium Potassium Chloride Carbon Dioxide Anion Gap BUN Creatinine Estimated GFR POC Glucose 101 Random Glucose Calcium Microbiology 12/04/17 13:55 Cerebral Spinal Fluid - Lumbar Puncture Acid Fast Bacilli Smear - Final No acid fast bacilli seen 12/04/17 13:55 Cerebral Spinal Fluid - Lumbar Puncture Mycobacterial Culture - Preliminary No growth in 1 week Assessment and Plan - Plan Possible metabolic/toxic encephalopathy. Patient with a history of alcoholism. Likely Wernicke's encephalopathy Lactic acidosis on admission LA 4.3, n IVF , LA back to normal Metabolic acidosis with elevated anion gap 21 on admission, AG closed now Severe hypokalemia, K replaced and so far stable continue to monitor and replace as need. he is on IVF with additive KCL as patient is AMS and is not eating Elevated bilirubin Transaminitis with AST at 72 on admission, improving Acute kidney injury, creatinine 2.2 however, unknown baseline, improving Poss Urinary tract infection Hypernatremia improving slowly CT scan of the head on admission reviewed no acute changes MRI brain Status post LP, CSF analysis pending no signs of infection,. HSV still pending however. Continue IV abx. Continue IV acyclovir Urine toxicology reviewed, normal findings Neurology and Psych consulted, appreciate recommendations. Continue Seroquel per psych recommendations. Consult neuropsychology Neuro checks, seizure precautions, telemetry monitoring, [facility] protocol EEG reviewed findings consistent with encephalomalacia DC IV abx as no signs of infection, rocephin iv for UTI, blood cultures and urine cultures negative Check lipase nl. Follow CBC, CMP, LA, Mg, Phosp, B12. Monitor labs until lactic acid is back to normal and anion gap closes Continue IVF, D5W-1/2NS + KCL 20 mEq, continue to monitor and replete electrolytes as needed Consult neuropsychiatry Also discussed with Dr. Godfrey neurology. Switch from Seroquel to Risperdal. Follow response hopefully he will have less somnolence Discharge plan. Pending improvement. Patient with myoencephalopathy , eeg . CSF no signs of infection so far. Difficult DC , needs SNF Also neuropsychologist is following
[2017-12-12] MEDS: KCL 20 mEq/D5W/NaCl 0.45% Inj 1,000 ML IV.CONT SCH ×2 (06:29→15:25)
[2017-12-12 07:30] LABS: Calcium 8.1 mg/dL (8.5-10.1); Carbon Dioxide 20.5 meq/L (21.0-32.0); Potassium 4.2 meq/L (3.5-5.1)
[2017-12-12] MEDS: Senna/Docusate Sodium 8.6/50 MG Tablet PO SCH ×2 (08:12→20:25)
--- NOTE | 2017-12-12 10:48 | P.PN ---
Subjective Interval history: The patient is seen in bed. He is still agitated on and off. Does not follow commands, however at times he was noted by nurse to be able to follow commands. Not much improvement. Physical Exam Vital signs: Vital Signs 12/11/17 12:00 12/11/17 16:00 12/11/17 20:00 Temperature 98.4 F 98.6 F 98.1 F Pulse Rate 100 H 96 H 97 H Respiratory Rate 23 23 20 Blood Pressure 164/91 H 155/91 H 187/114 H Pulse Oximetry 97 99 97 12/12/17 00:00 12/12/17 02:07 12/12/17 04:00 Temperature 99 F 97.8 F Pulse Rate 106 H 100 H 103 H Respiratory Rate 20 20 Blood Pressure 162/92 H 178/98 H Pulse Oximetry 98 98 12/12/17 08:00 Temperature 98.0 F Pulse Rate 96 H Respiratory Rate 21 Blood Pressure 145/50 H Pulse Oximetry 99 Intake & Output 12/11/17 12/12/17 12/12/17 18:59 06:59 18:59 Intake Total 1340 / 1340 2240 / 2240 Output Total 600 / 600 600 / 600 Balance 740 / 740 1640 / 1640 Weight 73.6 kg Intake: IV 1100 / 1100 2000 / 2000 D5W/1/2NS + KCL 20 mEq Inj 1, 1000 / 1000 2000 / 2000 000 ML @ 100 mls/hr IV.CONT . Q10H [facility]LEXX Rx#:[id number] Rocephin Inj 1,000 MG In NS Inj 100 / 100 100 ML @ 200 mls/hr IV.SIG Q24H [facility] Rx#:[id number] Oral 240 / 240 240 / 240 Output: Urine 600 / 600 600 / 600 Other: # Voids 1 # Incontinent Voids 2 # Urine Diapers 2 Date of Last Bowel Movement 12/09/17 12/11/17 # Bowel Movements 1 # Incontinent Bowel Movements 1 Narrative: GENERAL: 62 year old disheveled male in no acute distress CARDIOVASCULAR: Regular rate and rhythm. RESPIRATORY: No accessory muscle use. GASTROINTESTINAL: Abdomen soft, non-tender, nondistended. MUSCULOSKELETAL: Extremities without clubbing, cyanosis, or edema. No obvious deformities. NEUROLOGICAL: Fluctuating alert, able to state his name, follow some simple motor requests becomes inattentive, , no gaze deviation, no facial asymmetry localized all 4 extremity upper extremity and restraints, plantarflex her no clonus, no involuntary movements otherwise, PSYCHIATRIC: Confused Results - Labs CBC & Chem 7: 12/05/17 05:05 12/12/17 06:19 Laboratory Results - last 24 hr 12/12/17 06:19 Sodium 142 Potassium 4.2 Chloride 113 H Carbon Dioxide 20.5 L Anion Gap 9 BUN 11 Creatinine 1.25 Estimated GFR 58 L Random Glucose 105 Calcium 8.1 L Microbiology 12/04/17 13:55 Cerebral Spinal Fluid - Lumbar Puncture Acid Fast Bacilli Smear - Final No acid fast bacilli seen 12/04/17 13:55 Cerebral Spinal Fluid - Lumbar Puncture Mycobacterial Culture - Preliminary No growth in 1 week Assessment and Plan - Plan Possible metabolic/toxic encephalopathy. Patient with a history of alcoholism. Likely Wernicke's dementia Lactic acidosis on admission LA 4.3 Metabolic acidosis with elevated anion gap 21 Severe hypokalemia Elevated bilirubin Transaminitis with AST at 72 on admission Acute kidney injury, creatinine 2.2 however, unknown baseline Poss Urinary tract infection Hypernatremia improving CT scan of the head on admission reviewed no acute changes MRI brain Status post LP, CSF analysis pending no signs of infection,. HSV still pending however. Continue IV abx. Continue IV acyclovir Urine toxicology reviewed, normal findings Neurology and Psych consulted, appreciate recommendations Neuro checks, seizure precautions, telemetry monitoring, [facility] protocol EEG reviewed findings consistent with encephalomalacia Continue rocephin iv for UTI, blood cultures and urine cultures pending, follow results Check lipase nl. Follow CBC, CMP, LA, Mg, Phosp, B12. Monitor labs until lactic acid is back to normal and anion gap closes Continue IVF, D5W-1/2NS + KCL 20 mEq, continue to monitor and replete electrolytes as needed Speech seen today, puree diet. Neuro recs: hiv, rpr, nonreactive Hydration, nutritional support Adjustment in psychotropic medications; change to risperdal 0.5mg bid instead of seroquel if that makes him somnolent Follow exam DVT Prophylaxis: SCDs/TEDs Discharge Planning: Pending improvement. Patient with myoencephalopathy per EEG . CSF final results pending but no signs of infection so far. Difficult DC, needs snf
--- NOTE | 2017-12-12 14:15 | P.PN ---
Subjective Interval history: Patient with no improvement. Doesn't follow commands. However he is able to eat with help of the nurse if carefully guided. Moves arms and legs Physical Exam Vital signs: Vital Signs 12/11/17 16:00 12/11/17 20:00 12/12/17 00:00 Temperature 98.6 F 98.1 F 99 F Pulse Rate 96 H 97 H 106 H Respiratory Rate 23 20 20 Blood Pressure 155/91 H 187/114 H 162/92 H Pulse Oximetry 99 97 98 12/12/17 02:07 12/12/17 04:00 12/12/17 08:00 Temperature 97.8 F 98.0 F Pulse Rate 100 H 103 H 96 H Respiratory Rate 20 18 Blood Pressure 178/98 H 145/50 H Pulse Oximetry 98 99 12/12/17 12:00 Temperature 98.7 F Pulse Rate 104 H Respiratory Rate 22 Blood Pressure 134/98 H Pulse Oximetry 99 Intake & Output 12/11/17 12/12/17 12/12/17 18:59 06:59 18:59 Intake Total 1340 / 1340 2240 / 2240 Output Total 600 / 600 600 / 600 Balance 740 / 740 1640 / 1640 Weight 73.6 kg Intake: IV 1100 / 1100 2000 / 2000 D5W/1/2NS + KCL 20 mEq Inj 1, 1000 / 1000 2000 / 2000 000 ML @ 100 mls/hr IV.CONT . Q10H [facility]LEXX Rx#:[id number] Rocephin Inj 1,000 MG In NS Inj 100 / 100 100 ML @ 200 mls/hr IV.SIG Q24H [facility]LEXX Rx#:[id number] Oral 240 / 240 240 / 240 Output: Urine 600 / 600 600 / 600 Other: # Voids 1 # Incontinent Voids 2 # Urine Diapers 2 Date of Last Bowel Movement 12/09/17 12/11/17 # Bowel Movements 1 # Incontinent Bowel Movements 1 Narrative: GENERAL: 62 year old disheveled male in no acute distress CARDIOVASCULAR: Regular rate and rhythm. RESPIRATORY: No accessory muscle use. GASTROINTESTINAL: Abdomen soft, non-tender, nondistended. MUSCULOSKELETAL: Extremities without clubbing, cyanosis, or edema. No obvious deformities. NEUROLOGICAL: Fluctuating alert, able to state his name, follow some simple motor requests becomes inattentive, , no gaze deviation, no facial asymmetry localized all 4 extremity upper extremity and restraints, plantarflex her no clonus, no involuntary movements otherwise, PSYCHIATRIC: Confused Results - Labs CBC & Chem 7: 12/05/17 05:05 12/12/17 06:19 Laboratory Results - last 24 hr 12/12/17 06:19 Sodium 142 Potassium 4.2 Chloride 113 H Carbon Dioxide 20.5 L Anion Gap 9 BUN 11 Creatinine 1.25 Estimated GFR 58 L Random Glucose 105 Calcium 8.1 L Microbiology 12/04/17 13:55 Cerebral Spinal Fluid - Lumbar Puncture Acid Fast Bacilli Smear - Final No acid fast bacilli seen 12/04/17 13:55 Cerebral Spinal Fluid - Lumbar Puncture Mycobacterial Culture - Preliminary No growth in 1 week - Imaging Impressions Chest X-Ray 12/02/17 11:24 CONCLUSION: No acute intrathoracic disease. Head CT 12/02/17 11:24 CONCLUSION: 1. Negative noncontrast head CT. . Hip X-Ray 12/02/17 11:34 CONCLUSION: 1. No acute fracture or joint dislocation. 2. Mild to moderate degenerative arthritis. Lumbar Spine CT 12/02/17 12:32 CONCLUSION: 1. Mild annular disc bulges at the L1-2 and L3-4 levels with visualized protrusion. Abdomen/Pelvis CT 12/02/17 12:59 CONCLUSION: 1. Status post cholecystectomy. 2. A few scattered diverticula along the sigmoid colon without inflammatory changes. 3. Otherwise, unremarkable exam. Head MRI 12/04/17 00:00 CONCLUSION: 1. Remote left cerebellar lacunar infarcts. 2. No acute intracranial abnormality. Lumbar Puncture Fluoroscopy 12/04/17 10:55 CONCLUSION: 1. Uncomplicated fluoroscopically guided lumbar puncture. 2. Normal opening pressure of 16 cm of water. Assessment and Plan - Plan Possible metabolic/toxic encephalopathy. Patient with a history of alcoholism. Likely Wernicke's encephalopathy Lactic acidosis on admission LA 4.3, n IVF , LA back to normal Metabolic acidosis with elevated anion gap 21 on admission, AG closed now Severe hypokalemia, K replaced and so far stable continue to monitor and replace as need. he is on IVF with additive KCL as patient is AMS and is not eating Elevated bilirubin Transaminitis with AST at 72 on admission, improving Acute kidney injury, creatinine 2.2 however, unknown baseline, improving Poss Urinary tract infection Hypernatremia improving slowly CT scan of the head on admission reviewed no acute changes MRI brain Status post LP, CSF analysis pending no signs of infection,. HSV still pending however. Continue IV abx. Continue IV acyclovir Urine toxicology reviewed, normal findings Neurology and Psych consulted, appreciate recommendations. Continue Seroquel per psych recommendations. Consult neuropsychology Neuro checks, seizure precautions, telemetry monitoring, CIWA protocol EEG reviewed findings consistent with encephalomalacia DC IV abx as no signs of infection, rocephin iv for UTI, blood cultures and urine cultures negative Check lipase nl. Follow CBC, CMP, LA, Mg, Phosp, B12. Monitor labs until lactic acid is back to normal and anion gap closes Continue IVF, D5W-1/2NS + KCL 20 mEq, continue to monitor and replete electrolytes as needed Consult neuropsychiatry Also discussed with Dr. Godfrey neurology. Switch from Seroquel to Risperdal. Follow response hopefully he will have less somnolence Discharge plan. Pending improvement. Patient with likely Wernicke's encephalopathy. CSF no signs of infection so far. Difficult DC , needs SNF Also neuropsychologist is following Discussed with his Aleah by phone, who lives in [place] , she is considering taking him home however doesn't know if she will be able to take care of him
--- NOTE | 2017-12-12 14:52 | P.PNNEU ---
Subjective Subjective Comments: No acute events Active Medications: Active Medications Acetaminophen (Tylenol) 650 mg PO Q4H PRN PRN Reason: Temp > 100.4 Al Hydroxide/Mg Hydroxide (Milk Of Magnesia Liq) 30 ml PO Q12H PRN PRN Reason: Mild Constipation Aspirin (Aspirin Chew) 162 mg PO DAILY [facility] Last Admin: 12/12/17 08:12 Dose: 162 mg Bisacodyl (Dulcolax Supp) 10 mg RECTAL DAILY PRN PRN Reason: SEVERE CONSITIPATION Enalaprilat (Vasotec Inj) 1.25 mg IV.PUSH Q6H PRN PRN Reason: SBP>160, DBP>90 Last Admin: 12/11/17 21:58 Dose: 1.25 mg Flumazenil (Romazecon Inj) 0.2 mg IV.PUSH Q1M PRN PRN Reason: OVERSEDATION Haloperidol Lactate (Haldol Inj) 1 mg IV.PUSH Q15M PRN PRN Reason: for severe agitation Sodium Chloride (Ns Inj) 1,000 mls @ 0 mls/hr IV.SIG BOLUS [facility] Last Infusion: 12/02/17 13:00 Dose: Infused Potassium Chloride/Dextrose/Sod Cl (D5w/1/2ns + Kcl 20 Meq Inj) 1,000 mls @ 100 mls/hr IV.CONT .Q10H [facility] Last Admin: 12/12/17 06:29 Dose: 100 mls/hr Ceftriaxone Sodium 1,000 mg/ (Sodium Chloride) 100 mls @ 200 mls/hr IV.SIG Q24H [facility] Last Infusion: 12/11/17 16:30 Dose: Infused Lactulose (Lactulose Liq) 30 ml PO DAILY PRN PRN Reason: SEVERE CONSITIPATION Lorazepam (Ativan) 1 mg PO Q4H PRN PRN Reason: for CIWA 8-10 Last Admin: 12/03/17 21:11 Dose: 1 mg Lorazepam (Ativan Inj) 2 mg IV.PUSH Q2H PRN PRN Reason: for CIWA 11-14 Lorazepam (Ativan Inj) 2 mg IV.PUSH Q1H PRN PRN Reason: for CIWA 15-20 Lorazepam (Ativan Inj) 2 mg IV.PUSH Q15M PRN PRN Reason: for CIWA > 20 Lorazepam (Ativan Inj) 1 mg IV.PUSH Q4H PRN PRN Reason: for CIWA 8-10 Last Admin: 12/06/17 04:52 Dose: 1 mg Lorazepam (Ativan) 2 mg PO Q2H PRN PRN Reason: for CIWA 11-14 Ondansetron HCl (Zofran Inj) 4 mg IV.PUSH Q6H PRN PRN Reason: NAUSEA OR VOMITING Pantoprazole Sodium (Protonix) 40 mg PO DAILY [facility] Last Admin: 12/12/17 08:12 Dose: 40 mg Risperidone (Risperdal) 0.25 mg PO BID [facility] Last Admin: 12/12/17 08:12 Dose: 0.25 mg Senna/Docusate Sodium (Esperanza-Colace) 1 tab PO BID [facility] Last Admin: 12/12/17 08:12 Dose: 1 tab Sennosides (Senokot) 17.2 mg PO Q12H PRN PRN Reason: Moderate Constipation Thiamine HCl (Thiamine Inj) 100 mg IM DAILY [facility] Last Admin: 12/12/17 08:12 Dose: 100 mg Allergies/Adverse Reactions: Allergies Allergy/AdvReac Type Severity Reaction Status Date / Time codeine Allergy Severe PASSES OUT Unverified 12/12/17 13:15 Review of Systems All other systems reviewed negative except as stated in HPI Physical Exam Vital signs: Vital Signs 12/11/17 16:00 12/11/17 20:00 12/12/17 00:00 Temperature 98.6 F 98.1 F 99 F Pulse Rate 96 H 97 H 106 H Respiratory Rate 23 20 20 Blood Pressure 155/91 H 187/114 H 162/92 H Pulse Oximetry 99 97 98 12/12/17 02:07 12/12/17 04:00 12/12/17 08:00 Temperature 97.8 F 98.0 F Pulse Rate 100 H 103 H 96 H Respiratory Rate 20 18 Blood Pressure 178/98 H 145/50 H Pulse Oximetry 98 99 12/12/17 12:00 Temperature 98.7 F Pulse Rate 104 H Respiratory Rate 22 Blood Pressure 134/98 H Pulse Oximetry 99 Intake & Output 12/11/17 12/12/17 12/12/17 18:59 06:59 18:59 Intake Total 1340 / 1340 2240 / 2240 Output Total 600 / 600 600 / 600 Balance 740 / 740 1640 / 1640 Weight 73.6 kg Intake: IV 1100 / 1100 1999 / 1999 D5W/1/2NS + KCL 20 mEq Inj 1, 1000 / 1000 1999 / 1999 000 ML @ 100 mls/hr IV.CONT . Q10H [facility] Rx#:[id number] Rocephin Inj 1,000 MG In NS Inj 100 / 100 100 ML @ 200 mls/hr IV.SIG Q24H [facility] Rx#:[id number] Oral 240 / 240 240 / 240 Output: Urine 600 / 600 600 / 600 Other: # Voids 1 # Incontinent Voids 2 # Urine Diapers 2 Date of Last Bowel Movement 12/09/17 12/11/17 # Bowel Movements 1 # Incontinent Bowel Movements 1 Narrative: GENERAL: in no acute distress CARDIOVASCULAR: Regular rate and rhythm. RESPIRATORY: No accessory muscle use. GASTROINTESTINAL: Abdomen soft, non-tender, nondistended. MUSCULOSKELETAL: Extremities without clubbing, cyanosis, or edema. No obvious deformities. NEUROLOGICAL: Drowsy, arousable, occasionally follow simple motor request inattentive, , no gaze deviation, no facial asymmetry localized all 4 extremity upper extremity and restraints, plantarflex her no clonus, no involuntary movements otherwise, not unrestrained PSYCHIATRIC: Confused - Constitutional no acute distress - Routine HEENT Exam Head: Present: normocephalic Objective Laboratory Results - last 24 hr 12/12/17 06:19 Sodium 142 Potassium 4.2 Chloride 113 H Carbon Dioxide 20.5 L Anion Gap 9 BUN 11 Creatinine 1.25 Estimated GFR 58 L Random Glucose 105 Calcium 8.1 L Microbiology 12/04/17 13:55 Acid Fast Bacilli Smear - Final Cerebral Spinal Fluid - Lumbar Puncture No acid fast bacilli seen Mycobacterial Culture - Preliminary No growth in 1 week Review/Management - Diagnosis (1) Acute metabolic encephalopathy Code(s): G93.41 - Metabolic encephalopathy Status: Acute Current Visit: Yes (2) Acute kidney injury Code(s): N17.9 - Acute kidney failure, unspecified Status: Acute Current Visit: Yes (3) Hypertensive urgency Code(s): I16.0 - Hypertensive urgency Status: Acute Current Visit: Yes - Review/Management Plan: hypertensive and in renal failure on admission; ?wernickes encephalopathy Unknown if any history of toxic ingestion or EtOH withdrawal Urine drug screen negative. Ethanol level negative CSF negative for infection thus far slightly elevated protein nonspecific. WBC 2, normal glucose. Continue IV acyclovir until herpes PCR returned MRI brain negative for any acute lesion old infarcts HIV, RPR nonreactive Follow-up KERRY, ammonia level Recommendation We will change Risperdal as needed Hydration nutritional support Likely require inpatient snf placement No driving Follow exam
[2017-12-12] MEDS: Acetaminophen 325 MG Tablet PO PRN (20:32)
[2017-12-13] MEDS: KCL 20 mEq/D5W/NaCl 0.45% Inj 1,000 ML IV.CONT SCH ×2 (01:26→11:26)
[2017-12-13] MEDS: Senna/Docusate Sodium 8.6/50 MG Tablet PO SCH ×2 (09:30→21:31)
--- NOTE | 2017-12-13 15:30 | P.PN ---
Subjective Interval history: Patient resting in bed able to provide name per nurse this is patient's baseline no new concerns/complaints Physical Exam Vital signs: Vital Signs 12/12/17 15:51 12/12/17 16:00 12/12/17 20:00 Temperature 97.8 F 98.3 F Pulse Rate 103 H 101 H Respiratory Rate 23 18 Blood Pressure 133/94 H 182/112 H Pulse Oximetry 99 98 94 L 12/13/17 00:00 12/13/17 04:00 12/13/17 08:00 Temperature 97.8 F 98 F 98.3 F Pulse Rate 99 H 96 H 95 H Respiratory Rate 18 18 18 Blood Pressure 148/96 H 164/98 H 186/95 H Pulse Oximetry 96 95 97 Intake & Output 12/12/17 12/13/17 12/13/17 18:59 06:59 18:59 Intake Total 1220 / 1220 1000 / 1000 1000 / 1000 Balance 1220 / 1220 1000 / 1000 1000 / 1000 Weight 73.6 kg Intake: IV 1100 / 1100 1000 / 1000 1000 / 1000 D5W/1/2NS + KCL 20 mEq Inj 1, 1000 / 1000 1000 / 1000 1000 / 1000 000 ML @ 100 mls/hr IV.CONT . Q10H [facility] Rx#:[id number] Rocephin Inj 1,000 MG In NS Inj 100 / 100 100 ML @ 200 mls/hr IV.SIG Q24H [facility] Rx#:[id number] Oral 120 / 120 Other: # Voids 2 # Incontinent Voids 6 Date of Last Bowel Movement 12/11/17 Narrative: GENERAL: 62 year old disheveled male confused, in no acute distress CARDIOVASCULAR: Regular rate and rhythm. RESPIRATORY: No accessory muscle use. GASTROINTESTINAL: Abdomen soft, non-tender, nondistended. MUSCULOSKELETAL: Extremities without clubbing, cyanosis, or edema. No obvious deformities. NEUROLOGICAL: Fluctuating alertness, able to state his name, no facial asymmetry. moves all four extremities spontaneously PSYCHIATRIC: Confused Results - Labs CBC & Chem 7: 12/05/17 05:05 12/12/17 06:19 Laboratory Results - last 24 hr 12/12/17 15:42 Ammonia 34 H Assessment and Plan - Plan Possible metabolic/toxic encephalopathy. Patient with a history of alcoholism. Likely Wernicke's encephalopathy Lactic acidosis on admission LA 4.3, n IVF , LA back to normal Metabolic acidosis with elevated anion gap 21 on admission, AG closed now Severe hypokalemia, K replaced and so far stable continue to monitor and replace as need. he is on IVF with additive KCL as patient is AMS and is not eating Elevated bilirubin Transaminitis with AST at 72 on admission, improving Acute kidney injury, creatinine 2.2 however, unknown baseline, improving Poss Urinary tract infection Hypernatremia improving slowly CT scan of the head on admission reviewed no acute changes MRI brain Status post LP, CSF analysis pending no signs of infection,. HSV still pending however. Continue IV abx. Continue IV acyclovir Urine toxicology reviewed, normal findings Neurology and Psych consulted, appreciate recommendations. Continue Seroquel per psych recommendations. Consult neuropsychology Neuro checks, seizure precautions, telemetry monitoring, CIRI protocol EEG reviewed findings consistent with encephalomalacia DC IV abx as no signs of infection, rocephin iv for UTI, blood cultures and urine cultures negative Check lipase nl. Continue DC IVF, replete electrolytes as needed Consult neuropsychiatry Dr. Iglesias Also discussed with Dr. Godfrey neurology. Switch from Seroquel to Risperdal. Follow response hopefully he will have less somnolence speech reeval 12/13 diet changed to pureed food with honey thick liquids Discharge plan. Pending improvement. Patient with likely Wernicke's encephalopathy. CSF no signs of infection so far. Difficult DC , needs SNF Also neuropsychologist is following Dr. Iglesias Discussed with his Aleah by phone, who lives in [place] , she is considering taking him home however doesn't know if she will be able to take care of him Discussed with patient, nurse and supervising physician Dr. Nova
[2017-12-13] MEDS: Acetaminophen 325 MG Tablet PO PRN (21:30)
[2017-12-14 07:20] LABS: Baso # (Auto) 0.1 th/mm3 (0.0-0.2); Eos # (Auto) 0.1 th/mm3 (0.0-0.4); Eos % (Auto) 1.1 % (0.0-4.0); Hematocrit 24.9 % (39.0-51.0); Hemoglobin 8.6 gm/dL (13.0-17.0); Lymph % (Auto) 14.8 % (9.0-44.0); Mean Corpuscular HGB Conc 34.4 % (32.0-36.0); Mean Corpuscular Hemoglobin 33.7 pg (27.0-34.0); Mean Corpuscular Volume 97.9 fL (80.0-100.0); Mean Platelet Volume 10.2 fL (7.0-11.0); Mono # (Auto) 0.5 th/mm3 (0.0-0.9); Mono % (Auto) 7.3 % (0.0-8.0); Neut # (Auto) 4.9 th/mm3 (1.8-7.7); Neut % (Auto) 75.8 % (16.0-70.0); Platelet Count 138 th/mm3 (150-450); Red Blood Count 2.55 mil/mm3 (4.50-5.90); Red Cell Distribution Width 14.1 % (11.6-17.2); White Blood Count 6.4 th/mm3 (4.0-11.0)
[2017-12-14 07:25] LABS: Anion Gap 10 meq/L (5-15); Aspartate Aminotransferase 47 U/L (15-37); Blood Urea Nitrogen 15 mg/dL (7-18); Calcium 8.1 mg/dL (8.5-10.1); Carbon Dioxide 20.1 meq/L (21.0-32.0); Chloride 116 meq/L (98-107); Glomerular Filtration Rate 46 mL/min (>89); Glucose,Random 79 mg/dL (74-106); Potassium 3.8 meq/L (3.5-5.1); Sodium 146 meq/L (136-145)
[2017-12-14 07:26] LABS: Alanine Aminotransferase 35 U/L (12-78)
[2017-12-14 07:28] LABS: Alkaline Phosphatase 82 U/L (45-117)
[2017-12-14] MEDS: Senna/Docusate Sodium 8.6/50 MG Tablet PO SCH ×2 (08:05→22:43)
[2017-12-14] MEDS: Sodium Chloride 0.45 % Inj 1,000 ML IV.CONT SCH ×2 (09:31→22:43)
[2017-12-14] MEDS ORDERED: amLODIPine 5 MG Tablet PO SCH (10:00)
--- NOTE | 2017-12-14 11:12 | P.PNNEU ---
Subjective Subjective Comments: No cp, no dyspnea, no mcneill, no sz Active Medications: Active Medications Acetaminophen (Tylenol) 650 mg PO Q4H PRN PRN Reason: Temp > 100.4 Last Admin: 12/13/17 21:30 Dose: 650 mg Al Hydroxide/Mg Hydroxide (Milk Of Magnesia Liq) 30 ml PO Q12H PRN PRN Reason: Mild Constipation Amlodipine Besylate (Norvasc) 5 mg PO DAILY [facility] Aspirin (Aspirin Chew) 162 mg PO DAILY [facility] Last Admin: 12/14/17 08:05 Dose: 162 mg Bisacodyl (Dulcolax Supp) 10 mg RECTAL DAILY PRN PRN Reason: SEVERE CONSITIPATION Clonidine HCl (Catapres) 0.1 mg PO Q6H PRN PRN Reason: SYS BP GREATER THAN 160 MMHG Enalaprilat (Vasotec Inj) 1.25 mg IV.PUSH Q6H PRN PRN Reason: SBP>160, DBP>90 Last Admin: 12/14/17 04:55 Dose: 1.25 mg Flumazenil (Romazecon Inj) 0.2 mg IV.PUSH Q1M PRN PRN Reason: OVERSEDATION Haloperidol Lactate (Haldol Inj) 1 mg IV.PUSH Q15M PRN PRN Reason: for severe agitation Sodium Chloride (Ns Inj) 1,000 mls @ 0 mls/hr IV.SIG BOLUS [facility] Last Infusion: 12/02/17 13:00 Dose: Infused Sodium Chloride (1/2 Normal Saline Inj) 1,000 mls @ 75 mls/hr IV.CONT .[id number] [facility] Last Admin: 12/14/17 09:31 Dose: 75 mls/hr Lactulose (Lactulose Liq) 30 ml PO DAILY PRN PRN Reason: SEVERE CONSITIPATION Lorazepam (Ativan) 1 mg PO Q4H PRN PRN Reason: for CIWA 8-10 Last Admin: 12/03/17 21:11 Dose: 1 mg Lorazepam (Ativan Inj) 2 mg IV.PUSH Q2H PRN PRN Reason: for CIWA 11-14 Lorazepam (Ativan Inj) 2 mg IV.PUSH Q1H PRN PRN Reason: for CIWA 15-20 Lorazepam (Ativan Inj) 2 mg IV.PUSH Q15M PRN PRN Reason: for CIWA > 20 Lorazepam (Ativan Inj) 1 mg IV.PUSH Q4H PRN PRN Reason: for CIWA 8-10 Last Admin: 12/06/17 04:52 Dose: 1 mg Lorazepam (Ativan) 2 mg PO Q2H PRN PRN Reason: for CIWA 11-14 Ondansetron HCl (Zofran Inj) 4 mg IV.PUSH Q6H PRN PRN Reason: NAUSEA OR VOMITING Pantoprazole Sodium (Protonix) 40 mg PO DAILY [facility] Last Admin: 12/14/17 08:06 Dose: 40 mg Risperidone (Risperdal) 0.25 mg PO BID PRN PRN Reason: AGITATION Senna/Docusate Sodium (Esperanza-Colace) 1 tab PO BID [facility] Last Admin: 12/14/17 08:05 Dose: 1 tab Sennosides (Senokot) 17.2 mg PO Q12H PRN PRN Reason: Moderate Constipation Thiamine HCl (Thiamine Inj) 100 mg IM DAILY [facility] Last Admin: 12/14/17 08:05 Dose: 100 mg Allergies/Adverse Reactions: Allergies Allergy/AdvReac Type Severity Reaction Status Date / Time codeine Allergy Severe PASSES OUT Unverified 12/12/17 13:15 Review of Systems All other systems reviewed negative except as stated in HPI Physical Exam Vital signs: Vital Signs 12/13/17 12:00 12/13/17 16:00 12/13/17 18:25 Temperature 99.2 F 99.2 F Pulse Rate 92 H 100 H Respiratory Rate 18 18 Blood Pressure 170/102 H 177/110 H 140/98 H Pulse Oximetry 97 96 12/13/17 20:00 12/14/17 00:00 12/14/17 04:00 Temperature 99.7 F H 99.1 F 98.6 F Pulse Rate 105 H 106 H 95 H Respiratory Rate 18 18 18 Blood Pressure 173/116 H 157/107 H 172/105 H Pulse Oximetry 96 96 95 12/14/17 08:00 12/14/17 09:17 12/14/17 09:38 Temperature 99 F Pulse Rate 103 H Respiratory Rate 18 Blood Pressure 180/102 H 160/104 H 144/96 H Pulse Oximetry 97 Intake & Output 12/13/17 12/14/17 12/14/17 18:59 06:59 18:59 Intake Total 1780 / 1780 Output Total 700 / 700 850 / 850 Balance 1080 / 1080 -850 / -850 Weight 72.3 kg Intake: IV 1300 / 1300 D5W/1/2NS + KCL 20 mEq Inj 1, 1300 / 1300 000 ML @ 100 mls/hr IV.CONT . Q10H [facility] Rx#:[id number] Oral 480 / 480 Output: Urine 700 / 700 850 / 850 Other: Date of Last Bowel Movement 12/11/17 Narrative: GENERAL: in no acute distress CARDIOVASCULAR: Regular rate and rhythm. RESPIRATORY: No accessory muscle use. GASTROINTESTINAL: Abdomen soft, non-tender, nondistended. MUSCULOSKELETAL: Extremities without clubbing, cyanosis, or edema. No obvious deformities. NEUROLOGICAL: A little more alert, occasionally follow simple motor request inattentive, not cover setting very much, no gaze deviation, no facial asymmetry localized all 4 extremity upper extremity, plantarflex her no clonus, no involuntary movements otherwise, PSYCHIATRIC: Confused - Constitutional no acute distress - Routine HEENT Exam Head: Present: normocephalic Objective Laboratory Results - last 24 hr 12/14/17 12/14/17 12/14/17 06:40 06:40 06:49 WBC 6.4 RBC 2.55 L Hgb 8.6 L Hct 24.9 L MCV 97.9 MCH 33.7 MCHC 34.4 RDW 14.1 Plt Count 138 L D MPV 10.2 Neut % (Auto) 75.8 H Lymph % (Auto) 14.8 [place] % (Auto) 7.3 Eos % (Auto) 1.1 Baso % (Auto) 1.0 Neut # (Auto) 4.9 Lymph # (Auto) 1.0 [place] # (Auto) 0.5 Eos # (Auto) 0.1 Baso # (Auto) 0.1 WBC Differential . Differential Comment Auto diff final Sodium 146 H Potassium 3.8 Chloride 116 H Carbon Dioxide 20.1 L Anion Gap 10 BUN 15 Creatinine 1.53 H Estimated GFR 46 L Random Glucose 79 Calcium 8.1 L Total Bilirubin 0.8 AST 47 H ALT 35 Alkaline Phosphatase 82 Ammonia 17 Total Protein 6.0 L Albumin 2.0 L Review/Management - Diagnosis (1) Acute metabolic encephalopathy Code(s): G93.41 - Metabolic encephalopathy Status: Acute Current Visit: Yes (2) Acute kidney injury Code(s): N17.9 - Acute kidney failure, unspecified Status: Acute Current Visit: Yes (3) Hypertensive urgency Code(s): I16.0 - Hypertensive urgency Status: Acute Current Visit: Yes - Review/Management Plan: hypertensive and in renal failure on admission; ?wernickes encephalopathy Unknown if any history of toxic ingestion or EtOH withdrawal Urine drug screen negative. Ethanol level negative CSF negative for infection thus far slightly elevated protein nonspecific. WBC 2, normal glucose. Continue IV acyclovir until herpes PCR returned MRI brain negative for any acute lesion old infarcts HIV, RPR nonreactive Follow-up [facility], ammonia level Recommendation Trial of Provigil to help with somnolence Hydration nutritional support Likely require inpatient snf placement No driving Follow exam
--- NOTE | 2017-12-14 11:35 | P.PNIM ---
Subjective Interval history: Follow up: Possible metabolic/toxic encephalopathy. Patient with a history of alcoholism. Likely Wernicke's encephalopathy Hypernatremia improving slowly Patient oriented to person only Physical Exam Vital signs: Vital Signs 12/13/17 12:00 12/13/17 16:00 12/13/17 18:25 Temperature 99.2 F 99.2 F Pulse Rate 92 H 100 H Respiratory Rate 18 18 Blood Pressure 170/102 H 177/110 H 140/98 H Pulse Oximetry 97 96 12/13/17 20:00 12/14/17 00:00 12/14/17 04:00 Temperature 99.7 F H 99.1 F 98.6 F Pulse Rate 105 H 106 H 95 H Respiratory Rate 18 18 18 Blood Pressure 173/116 H 157/107 H 172/105 H Pulse Oximetry 96 96 95 12/14/17 08:00 12/14/17 09:17 12/14/17 09:38 Temperature 99 F Pulse Rate 103 H Respiratory Rate 18 Blood Pressure 180/102 H 160/104 H 144/96 H Pulse Oximetry 97 Intake & Output 12/13/17 12/14/17 12/14/17 18:59 06:59 18:59 Intake Total 1780 / 1780 Output Total 700 / 700 850 / 850 Balance 1080 / 1080 -850 / -850 Weight 72.3 kg Intake: IV 1300 / 1300 D5W/1/2NS + KCL 20 mEq Inj 1, 1300 / 1300 000 ML @ 100 mls/hr IV.CONT . Q10H [facility] Rx#:[id number] Oral 480 / 480 Output: Urine 700 / 700 850 / 850 Other: Date of Last Bowel Movement 12/11/17 Narrative: GENERAL: 62 year old male patient appears older than stated age oriented to self only CARDIOVASCULAR: Regular rate and rhythm. RESPIRATORY: No accessory muscle use. GASTROINTESTINAL: Abdomen soft, non-tender, nondistended. MUSCULOSKELETAL: Extremities without clubbing, cyanosis, or edema. No obvious deformities. NEUROLOGICAL: A little more alert, occasionally follow simple motor, oriented to self only, moves all four extremity spontaneously PSYCHIATRIC: Confused oriented to self only Results - Labs CBC & Chem 7: 12/14/17 06:40 12/14/17 06:49 Laboratory Results - last 24 hr 12/14/17 12/14/17 12/14/17 06:40 06:40 06:49 WBC 6.4 RBC 2.55 L Hgb 8.6 L Hct 24.9 L MCV 97.9 MCH 33.7 MCHC 34.4 RDW 14.1 Plt Count 138 L D MPV 10.2 Neut % (Auto) 75.8 H Lymph % (Auto) 14.8 [place] % (Auto) 7.3 Eos % (Auto) 1.1 Baso % (Auto) 1.0 Neut # (Auto) 4.9 Lymph # (Auto) 1.0 [place] # (Auto) 0.5 Eos # (Auto) 0.1 Baso # (Auto) 0.1 WBC Differential . Differential Comment Auto diff final Sodium 146 H Potassium 3.8 Chloride 116 H Carbon Dioxide 20.1 L Anion Gap 10 BUN 15 Creatinine 1.53 H Estimated GFR 46 L Random Glucose 79 Calcium 8.1 L Total Bilirubin 0.8 AST 47 H ALT 35 Alkaline Phosphatase 82 Ammonia 17 Total Protein 6.0 L Albumin 2.0 L Assessment and Plan - Plan Possible metabolic/toxic encephalopathy. Patient with a history of alcoholism. Likely Wernicke's encephalopathy Lactic acidosis on admission LA 4.3, n IVF , LA back to normal Metabolic acidosis with elevated anion gap 21 on admission, AG closed now Severe hypokalemia, K replaced and so far stable continue to monitor and replace as need. he is on IVF with additive KCL as patient is AMS and is not eating Elevated bilirubin Transaminitis with AST at 72 on admission, improving Acute kidney injury, creatinine 2.2 however, unknown baseline, improving Poss Urinary tract infection Hypernatremia improving slowly CT scan of the head on admission reviewed no acute changes MRI brain Status post LP, CSF analysis pending no signs of infection,. HSV still pending however. Continue IV abx. Continue IV acyclovir Urine toxicology reviewed, normal findings Neurology and Psych consulted, appreciate recommendations. Continue Seroquel per psych recommendations. Consult neuropsychology Neuro checks, seizure precautions, telemetry monitoring, [facility] protocol EEG reviewed findings consistent with encephalomalacia DC IV abx as no signs of infection, rocephin iv for UTI, blood cultures and urine cultures negative Check lipase nl. Na 146, creatinine 1.53 will start 1/2 NS at 75ml/h- recheck BMP in AM Hgb 8.6 recheck CBC in AM replete electrolytes as needed Consult neuropsychiatry Dr. Iglesias Also discussed with Dr. Godfrey neurology. Switch from Seroquel to Risperdal. Follow response hopefully he will have less somnolence speech reeval 12/13 diet changed to pureed food with honey thick liquids Neurology Dr. Godfrey Trial of Provigil to help with somnolence 12/14 HTN BP elevated better when measured with manual cuff - request nurses measure with manual cuff clonidine as need start Norvasc 5 mg PO daily Discharge plan. Pending improvement. Patient with likely Wernicke's encephalopathy. CSF no signs of infection so far. Difficult DC , needs SNF Also neuropsychologist is following Dr. Iglesias Discussed with his Aleah by phone, who lives in [place] , she is considering taking him home however doesn't know if she will be able to take care of him Discussed with patient, nurse and supervising physician Dr. Nova
[2017-12-14] MEDS: Modafinil 200 MG Tablet PO SCH (17:05)
[2017-12-15] MEDS: Acetaminophen 325 MG Tablet PO PRN (00:53)
[2017-12-15 07:34] LABS: Baso # (Auto) 0.1 th/mm3 (0.0-0.2); Eos # (Auto) 0.1 th/mm3 (0.0-0.4); Eos % (Auto) 1.1 % (0.0-4.0); Hematocrit 24.7 % (39.0-51.0); Hemoglobin 8.3 gm/dL (13.0-17.0); Lymph % (Auto) 18.5 % (9.0-44.0); Mean Corpuscular HGB Conc 33.7 % (32.0-36.0); Mean Corpuscular Hemoglobin 33.4 pg (27.0-34.0); Mean Corpuscular Volume 99.1 fL (80.0-100.0); Mono # (Auto) 0.4 th/mm3 (0.0-0.9); Mono % (Auto) 7.6 % (0.0-8.0); Neut # (Auto) 3.8 th/mm3 (1.8-7.7); Neut % (Auto) 71.8 % (16.0-70.0); Platelet Count 139 th/mm3 (150-450); Red Blood Count 2.49 mil/mm3 (4.50-5.90); Red Cell Distribution Width 14.2 % (11.6-17.2); White Blood Count 5.3 th/mm3 (4.0-11.0)
[2017-12-15 07:49] LABS: Calcium 8.2 mg/dL (8.5-10.1); Carbon Dioxide 23.6 meq/L (21.0-32.0); Potassium 3.1 meq/L (3.5-5.1)
[2017-12-15] MEDS: Modafinil 200 MG Tablet PO SCH (08:13)
[2017-12-15] MEDS: Senna/Docusate Sodium 8.6/50 MG Tablet PO SCH ×2 (08:15→21:25)
[2017-12-15] MEDS: amLODIPine 10 MG Tablet PO SCH (10:24)
--- NOTE | 2017-12-15 11:11 | P.PNNPSY ---
- Cognitive Severe: Cognitive, Attention/concentration, Confused/orientation, Insight/ awareness, Judgment/problem solving, Memory - Psychosocial Severe: Psychosocial, Family/other adjustment, Realistic expectation - Progress Notes/Response to Treatment Contents of Sessions: Adjustment, Level of consciousness Time with Patient: 15 minutes Premorbid Psychological Status: Premorbid Cognitive, Emotional and Behavioral Status: Tenuous. The patient has high school years of education and an unknown work history prior to this injury. The patient has unknown psychiatric difficulties, as described above. Substance abuse history is unclear. Behavioral Reactions of Patient and Family/Support System: Tenuous. The patients family is experiencing ongoing issues of adjustment given the nature of the injury, and this aspect of recovery will require ongoing monitoring. Emotional/Behavioral Status of Patient and Family/Support System: Tenuous. Pertinent issues, if appropriate to this patients clinical care, are described in detail above. Maximizing Acute Care Outcome: It is recommended that the patient be monitored for emergent behavioral impulsivity as the medical condition evolves. This patients neuropathological challenges may limit rehabilitation potential going forward, and these challenges will require specialized therapeutic skills to maximize outcome. At this point in the recovery process, the patient does not have cognitive capacity as the patient is unable to understand a situation and its likely consequences, nor is the patient able to manipulate information rationally. Cognitive capacity will be assessed throughout the recovery process. Anticipated Problems: Ongoing areas of concern will include behavioral impulsivity, lack of insight and judgment, which may or may not improve with time and treatment. Treatment Plan: This clinician will continue to follow with you throughout the course of this patients acute care treatment, and I will be available to meet with the patient s family/support system to facilitate their understanding and the ongoing care of their family member. The goals of neuropsychological intervention shall be both educational and supportive to the family/support system as is deemed clinically appropriate. Disinhibition Score: 19.25 Aggression Score: 17.50 Lability Score: 14.00 Agitated Behavior Total Score: 17 Impression: This is a 62 year old man admitted to the hospital for altered mental status after being found down. He has a history of alcohol dependence, and possible Wernicke's encephalopathy as a result. Today, he was generally unable to be tested given his clinical presentation. Progress Note Narrative: Day 13. The patient was awake today, big improvement compared to last week. Neurology started him on Provigil. Risperdal has not been given, and he is still on CIWA (but not dosed). He still doesn't follow commands, not oriented, etc. I will follow. - Diagnosis (1) Delirium Status: Acute (2) Alcohol dependence in controlled environment Status: Acute
[2017-12-15] MEDS: Sodium Chloride 0.45 % Inj 1,000 ML IV.CONT SCH (12:13)
--- NOTE | 2017-12-15 13:46 | P.PN ---
Subjective Interval history: Follow up on patient with encephalopathy. Patient seen and examined. Patient appears confused. Oriented to self only. Unable to provide any meaningful history. Physical Exam Vital signs: Vital Signs 12/14/17 16:00 12/14/17 16:23 12/14/17 20:00 Temperature 98.2 F 98.0 F Pulse Rate 97 H 96 H Respiratory Rate 18 18 Blood Pressure 166/98 H 140/90 164/109 H Pulse Oximetry 97 95 12/15/17 00:00 12/15/17 04:00 12/15/17 08:00 Temperature 97.9 F 98.0 F 97.8 F Pulse Rate 97 H 87 92 H Respiratory Rate 18 18 18 Blood Pressure 154/112 H 155/106 H 159/93 H Pulse Oximetry 91 L 94 L 97 12/15/17 12:00 Temperature 97.3 F L Pulse Rate 91 H Respiratory Rate 18 Blood Pressure 145/84 H Pulse Oximetry 98 Intake & Output 12/14/17 12/15/17 12/15/17 18:59 06:59 18:59 Intake Total 240 / 240 1000 / 1000 Output Total 3550 / 3550 1949 Balance -3310 / -3310 -1951 / -1949 1000 / 1000 Weight 69.4 kg Intake: IV 1000 / 1000 1/2 Normal Saline Inj 1,000 ML 1000 / 1000 @ 75 mls/hr IV.CONT .[id number] [facility] Rx#:[id number] Oral 240 / 240 Output: Urine 400 / 400 Urine Amount (Catheter) 3150 / 3150 1949 Indwelling Urethral Catheter 3150 / 3150 1949 Other: Date of Last Bowel Movement 12/14/17 12/14/17 # Incontinent Bowel Movements 1 Narrative: GENERAL: Thin male patient, in no acute distress. Appears older than stated age. Oriented to self only. SKIN: Warm and dry. HEENT: Atraumatic. Normocephalic. Pupils equal and round. No scleral icterus. No injection or drainage. No nasal bleeding or discharge. Mucous membranes pink and moist. NECK: Trachea midline. CARDIOVASCULAR: Regular rate and rhythm. RESPIRATORY: No accessory muscle use. Poor effort. Clear to auscultation. Breath sounds equal bilaterally. GASTROINTESTINAL: Abdomen soft, non-tender, nondistended. GENITOURINARY: Montemayor catheter in place with tea colored urine in bag. MUSCULOSKELETAL: Extremities without clubbing, cyanosis, or edema. No obvious deformities. NEUROLOGICAL: Awake. Oriented to self only. 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 No obvious cranial nerve deficits. Motor grossly within normal limits. Minimal speech. PSYCHIATRIC: Calm. - Urinary Catheter Management Indwelling Urethral Catheter Cath placed during this visit: yes Reason for continuing: Acute urinary retention Insertion date: 12/14/17 Insertion time: 15:30 Results - Labs CBC & Chem 7: 12/15/17 05:45 12/15/17 05:45 Laboratory Results - last 24 hr 12/15/17 12/15/17 12/15/17 05:45 05:45 05:45 WBC 5.3 RBC 2.49 L Hgb 8.3 L Hct 24.7 L MCV 99.1 MCH 33.4 MCHC 33.7 RDW 14.2 Plt Count 139 L MPV 10.0 Neut % (Auto) 71.8 H Lymph % (Auto) 18.5 Evans % (Auto) 7.6 Eos % (Auto) 1.1 Baso % (Auto) 1.0 Neut # (Auto) 3.8 Lymph # (Auto) 1.0 Evans # (Auto) 0.4 Eos # (Auto) 0.1 Baso # (Auto) 0.1 WBC Differential . Differential Comment Auto diff final Sodium 146 H Potassium 3.1 L Chloride 112 H Carbon Dioxide 23.6 Anion Gap 10 BUN 17 Creatinine 1.19 Estimated GFR 62 L Random Glucose 71 L Calcium 8.2 L Magnesium 1.7 Assessment and Plan - Plan Possible metabolic/toxic encephalopathy. Patient with a history of alcoholism. Likely Wernicke's encephalopathy Lactic acidosis on admission LA 4.3, n IVF , LA back to normal Metabolic acidosis with elevated anion gap 21 on admission, AG closed now Severe hypokalemia, K replaced and so far stable continue to monitor and replace as need. he is on IVF with additive KCL as patient is AMS and is not eating Elevated bilirubin Transaminitis with AST at 72 on admission, improving Acute kidney injury, creatinine 2.2 however, unknown baseline, improving Poss Urinary tract infection Hypernatremia improving slowly CT scan of the head on admission reviewed no acute changes MRI brain Status post LP, CSF analysis pending no signs of infection,. HSV still pending however. Continue IV abx. Continue IV acyclovir Urine toxicology reviewed, normal findings Neurology and Psych consulted, appreciate recommendations. Continue Seroquel per psych recommendations. Consult neuropsychology Neuro checks, seizure precautions, telemetry monitoring, CIWA protocol EEG reviewed findings consistent with encephalomalacia DC IV abx as no signs of infection, rocephin iv for UTI, blood cultures and urine cultures negative Check lipase nl. Na 146, creatinine 1.53 will start 1/2 NS at 75ml/h- recheck BMP in AM Hgb 8.3 recheck CBC in AM replete electrolytes as needed Consult neuropsychiatry, Dr. Butler following Dr. Iglesias Also discussed with Dr. Godfrey neurology. Switch from Seroquel to Risperdal. Follow response hopefully he will have less somnolence speech reeval 12/13 diet changed to pureed food with honey thick liquids Neurology Dr. Godfrey Trial of Provigil to help with somnolence 12/14. No driving. Dysphagia Speech therapy following, on puree diet with honey thickened liquids HTN better when measured with manual cuff - request nurses measure with manual cuff BP elevated, increase Norvasc to 10mg daily Vasotec as need Urinary retention montemayor catheter in place started on Flomax 0.4mg check UA MARILY, suspect secondary to above -repeat creatinine 1.19 -avoid nephrotoxic agents -monitor BMP as indicated Hypokalemia K 3.1 po repletion ordered repeat BMP in am Discharge plan. Pending improvement. Patient with likely Wernicke's encephalopathy. CSF no signs of infection so far. Difficult DC , needs SNF Dr. Iglesias Discussed with his Aleah by phone, who lives in [place] , she is considering taking him home however doesn't know if she will be able to take care of him Code Status: Full Discussed Condition With: patient, nursing staff, Dr. Nova
[2017-12-15 19:47] LABS: Bacteria,Urine Occasional /hpf; Bilirubin,Urine Negative (Negative); Clarity,Urine Cloudy (Clear); Color,Urine Red (Yellw/Straw); Glucose,Urine (UA) 50 mg/dL (Negative); Leukocyte Esterase,Urine Negative (Negative); Nitrite,Urine Negative (Negative); Specific Gravity,Urine 1.015 (1.002-1.035)
[2017-12-16] MEDS: Sodium Chloride 0.45 % Inj 1,000 ML IV.CONT SCH ×2 (01:46→15:23)
[2017-12-16 06:46] LABS: Baso # (Auto) 0.1 th/mm3 (0.0-0.2); Eos # (Auto) 0.1 th/mm3 (0.0-0.4); Eos % (Auto) 1.8 % (0.0-4.0); Hematocrit 25.8 % (39.0-51.0); Hemoglobin 8.7 gm/dL (13.0-17.0); Lymph # (Auto) 1.1 th/mm3 (1.0-4.8); Lymph % (Auto) 21.3 % (9.0-44.0); Mean Corpuscular HGB Conc 33.6 % (32.0-36.0); Mean Corpuscular Hemoglobin 32.9 pg (27.0-34.0); Mean Corpuscular Volume 97.9 fL (80.0-100.0); Mean Platelet Volume 9.7 fL (7.0-11.0); Mono # (Auto) 0.4 th/mm3 (0.0-0.9); Mono % (Auto) 8.3 % (0.0-8.0); Neut # (Auto) 3.5 th/mm3 (1.8-7.7); Neut % (Auto) 67.6 % (16.0-70.0); Platelet Count 141 th/mm3 (150-450); Red Blood Count 2.64 mil/mm3 (4.50-5.90); Red Cell Distribution Width 14.2 % (11.6-17.2); White Blood Count 5.1 th/mm3 (4.0-11.0)
[2017-12-16 07:12] LABS: Carbon Dioxide 21.9 meq/L (21.0-32.0); Potassium 3.1 meq/L (3.5-5.1)
[2017-12-16] MEDS: Modafinil 200 MG Tablet PO SCH (08:14)
[2017-12-16] MEDS: Senna/Docusate Sodium 8.6/50 MG Tablet PO SCH ×2 (08:15→22:33)
[2017-12-16] MEDS: amLODIPine 10 MG Tablet PO SCH (08:15)
--- NOTE | 2017-12-16 08:36 | P.PNNPSY ---
- Progress Notes/Response to Treatment Contents of Sessions: Adjustment, Level of consciousness Time with Patient: 15 minutes Premorbid Psychological Status: Premorbid Cognitive, Emotional and Behavioral Status: Tenuous. The patient has high school years of education and an unknown work history prior to this injury. The patient has unknown psychiatric difficulties, as described above. Substance abuse history is unclear. Behavioral Reactions of Patient and Family/Support System: Tenuous. The patients family is experiencing ongoing issues of adjustment given the nature of the injury, and this aspect of recovery will require ongoing monitoring. Emotional/Behavioral Status of Patient and Family/Support System: Tenuous. Pertinent issues, if appropriate to this patients clinical care, are described in detail above. Maximizing Acute Care Outcome: It is recommended that the patient be monitored for emergent behavioral impulsivity as the medical condition evolves. This patients neuropathological challenges may limit rehabilitation potential going forward, and these challenges will require specialized therapeutic skills to maximize outcome. At this point in the recovery process, the patient does not have cognitive capacity as the patient is unable to understand a situation and its likely consequences, nor is the patient able to manipulate information rationally. Cognitive capacity will be assessed throughout the recovery process. Anticipated Problems: Ongoing areas of concern will include behavioral impulsivity, lack of insight and judgment, which may or may not improve with time and treatment. Treatment Plan: This clinician will continue to follow with you throughout the course of this patients acute care treatment, and I will be available to meet with the patient s family/support system to facilitate their understanding and the ongoing care of their family member. The goals of neuropsychological intervention shall be both educational and supportive to the family/support system as is deemed clinically appropriate. Disinhibition Score: 19.25 Aggression Score: 14.00 Lability Score: 14.00 Agitated Behavior Total Score: 17 Impression: This is a 62 year old man admitted to the hospital for altered mental status after being found down. He has a history of alcohol dependence, and possible Wernicke's encephalopathy as a result. Today, he was generally unable to be tested given his clinical presentation. Progress Note Narrative: Day 14. The patient is more awake, but not following commands consistently, but altogether an improvement from the past several days. Still encephalopathic however, and he is not testable to determine a Wernicke's process. Neurology started Provigil. Recent ABS was 17 (19.3,14,14), not significantly agitated, but still not able to be restraint free. I will follow. - Diagnosis (1) Delirium Status: Acute (2) Alcohol dependence in controlled environment Status: Acute
--- NOTE | 2017-12-16 15:51 | P.PNIM ---
Subjective Interval history: Mental status is at new baseline. Patient needs placement. Placement pending. Low potassium this morning. Physical Exam Vital signs: Vital Signs 12/15/17 16:00 12/15/17 20:00 12/16/17 00:00 Temperature 98.6 F 97.9 F 99.1 F Pulse Rate 99 H 95 H 93 H Respiratory Rate 18 16 16 Blood Pressure 143/84 H 129/85 145/84 H Pulse Oximetry 95 97 96 12/16/17 04:00 12/16/17 08:00 12/16/17 12:00 Temperature 97.4 F L 97.6 F 97.7 F Pulse Rate 120 H 75 75 Respiratory Rate 20 18 18 Blood Pressure 173/87 H 170/101 H 162/98 H Pulse Oximetry 94 L 96 97 Intake & Output 12/15/17 12/16/17 12/16/17 18:59 06:59 18:59 Intake Total 1360 / 1360 1000 / 1000 1000 / 1000 Output Total 1250 / 1250 700 / 700 Balance 110 / 110 300 / 300 1000 / 1000 Weight 66.9 kg Intake: IV 1000 / 1000 1000 / 1000 1000 / 1000 1/2 Normal Saline Inj 1,000 ML 1000 / 1000 1000 / 1000 1000 / 1000 @ 75 mls/hr IV.CONT .[id number] [facility] Rx#:[id number] Oral 360 / 360 Output: Urine 1250 / 1250 700 / 700 Other: # Bowel Movements 1 1 Narrative: GENERAL: NAD, A&Ox0 HEAD: Normocephalic. NECK: Supple, trachea midline. No lymphadenopathy. EYES: No scleral icterus. No injection or drainage. CARDIOVASCULAR: Regular rate and rhythm without murmurs, gallops, or rubs. RESPIRATORY: Breath sounds equal bilaterally. No accessory muscle use. GASTROINTESTINAL: Abdomen soft, non-tender, nondistended. MUSCULOSKELETAL: No cyanosis, or edema. SKIN: Warm and dry. NEURO: No focal neurological deficits. - Urinary Catheter Management Indwelling Urethral Catheter Cath placed during this visit: yes Reason for continuing: Acute urinary retention Insertion date: 12/14/17 Insertion time: 15:30 Results - Labs CBC & Chem 7: 12/16/17 05:10 12/16/17 05:10 Laboratory Results - last 24 hr 12/15/17 12/16/17 12/16/17 18:30 05:10 05:10 WBC 5.1 RBC 2.64 L Hgb 8.7 L Hct 25.8 L MCV 97.9 MCH 32.9 MCHC 33.6 RDW 14.2 Plt Count 141 L MPV 9.7 Neut % (Auto) 67.6 Lymph % (Auto) 21.3 [place] % (Auto) 8.3 H Eos % (Auto) 1.8 Baso % (Auto) 1.0 Neut # (Auto) 3.5 Lymph # (Auto) 1.1 [place] # (Auto) 0.4 Eos # (Auto) 0.1 Baso # (Auto) 0.1 WBC Differential . Differential Comment Auto diff final Sodium 142 Potassium 3.1 L Chloride 109 H Carbon Dioxide 21.9 Anion Gap 11 BUN 15 Creatinine 1.04 Estimated GFR 72 L Random Glucose 79 Calcium 8.0 L Urine Color Red Urine Clarity Cloudy H Urine pH 6.0 Ur Specific [place] 1.015 Urine Protein 100 H Urine Glucose (UA) 50 Urine Ketones Negative Urine Occult Blood Large H Urine Nitrate Negative Urine Bilirubin Negative Urine Urobilinogen Less than 2 Ur Leukocyte Esterase Negative Urine RBC Urine WBC 16 H Urine Bacteria Occasional H Micro UA Comment Cath-culture ind Ur Microscopic Review Not Reportable Urine Culture Comments Cath-cult indicated Microbiology 12/15/17 18:30 Catheterized Urine Urine Culture - Preliminary No growth in 24 hours Assessment and Plan - Plan 62-year-old male admitted secondary to altered mental status Suspected Wernicke's encephalopathy Chronic encephalopathy History of alcoholism Chronic transaminitis Supportive care No further DTs or withdrawal Placement pending Dysphagia Speech therapy following puree diet with honey thickened liquids HTN Norvasc to 10mg daily Vasotec as need Follow blood pressure Urinary retention montemayor catheter in place Continue Flomax 0.4mg MARILY Avoid nephrotoxins Monitor renal function Hypokalemia Potassium levels Replace as needed Discharge plan Mental status is not improving, likely Wernicke's encephalopathy Long-term placement likely needed
[2017-12-17] MEDS: Sodium Chloride 0.45 % Inj 1,000 ML IV.CONT SCH ×2 (04:36→17:45)
[2017-12-17] MEDS: Modafinil 200 MG Tablet PO SCH (08:03)
[2017-12-17] MEDS: Senna/Docusate Sodium 8.6/50 MG Tablet PO SCH ×2 (08:03→21:02)
[2017-12-17] MEDS: amLODIPine 10 MG Tablet PO SCH (08:04)
--- NOTE | 2017-12-17 08:37 | P.PNNPSY ---
- Behavior Mild: Impulsive/agitated - Cognitive Severe: Cognitive, Attention/concentration, Confused/orientation, Insight/ awareness, Judgment/problem solving, Memory - Psychosocial Severe: Psychosocial, Family/other adjustment, Realistic expectation, Self- esteem/confidence - Progress Notes/Response to Treatment Contents of Sessions: Adjustment, Level of consciousness Time with Patient: 15 minutes Premorbid Psychological Status: Premorbid Cognitive, Emotional and Behavioral Status: Tenuous. The patient has high school years of education and an unknown work history prior to this injury. The patient has unknown psychiatric difficulties, as described above. Substance abuse history is unclear. Behavioral Reactions of Patient and Family/Support System: Tenuous. The patients family is experiencing ongoing issues of adjustment given the nature of the injury, and this aspect of recovery will require ongoing monitoring. Emotional/Behavioral Status of Patient and Family/Support System: Tenuous. Pertinent issues, if appropriate to this patients clinical care, are described in detail above. Maximizing Acute Care Outcome: It is recommended that the patient be monitored for emergent behavioral impulsivity as the medical condition evolves. This patients neuropathological challenges may limit rehabilitation potential going forward, and these challenges will require specialized therapeutic skills to maximize outcome. At this point in the recovery process, the patient does not have cognitive capacity as the patient is unable to understand a situation and its likely consequences, nor is the patient able to manipulate information rationally. Cognitive capacity will be assessed throughout the recovery process. Anticipated Problems: Ongoing areas of concern will include behavioral impulsivity, lack of insight and judgment, which may or may not improve with time and treatment. Treatment Plan: This clinician will continue to follow with you throughout the course of this patients acute care treatment, and I will be available to meet with the patient s family/support system to facilitate their understanding and the ongoing care of their family member. The goals of neuropsychological intervention shall be both educational and supportive to the family/support system as is deemed clinically appropriate. Disinhibition Score: 24.50 Aggression Score: 17.50 Lability Score: 14.00 Agitated Behavior Total Score: 20 Impression: This is a 62 year old man admitted to the hospital for altered mental status after being found down. He has a history of alcohol dependence, and possible Wernicke's encephalopathy as a result. Today, he was generally unable to be tested given his clinical presentation. Progress Note Narrative: Day 15 of hospitalization. This patient remains encephalopathic, now somewhat more agitated, with recent ABS of 20 (24.5,17.5,14). He has not needed either PRN Haldol or risperidal, but he has DA super agonist, Provigil, which may be working from a neurobehavioral stimulant perspective. Either way, this patient has significant neurocognitive and neurobehavioral deficits that preclude his ability to care for himself or making decisions going forward, and in my clinical opinion these deficits are permanent. He will require LTAC placement. I will follow. - Diagnosis (1) Delirium Status: Acute (2) Alcohol dependence in controlled environment Status: Acute
--- NOTE | 2017-12-17 11:33 | P.PNIM ---
Subjective Interval history: Potassium level remains low again today. No changes in mental status. No complaints. Physical Exam Vital signs: Vital Signs 12/16/17 12:00 12/16/17 16:00 12/16/17 20:00 Temperature 97.7 F 97.9 F 97.5 F L Pulse Rate 92 H 92 H 104 H Respiratory Rate 18 18 18 Blood Pressure 162/98 H 142/72 H 134/87 Pulse Oximetry 97 97 96 12/16/17 20:02 12/17/17 00:00 12/17/17 00:03 Temperature 98 F Pulse Rate 98 H 94 H 92 H Respiratory Rate 18 Blood Pressure 138/93 H Pulse Oximetry 97 12/17/17 04:00 12/17/17 04:04 12/17/17 08:00 Temperature 98 F 98.2 F Pulse Rate 97 H 97 H 94 H Respiratory Rate 18 17 Blood Pressure 156/85 H 153/92 H Pulse Oximetry 99 98 Intake & Output 12/16/17 12/17/17 12/17/17 18:59 06:59 18:59 Intake Total 1380 / 1380 1000 / 1000 Output Total 1800 / 1800 2750 / 2750 Balance -420 / -420 -1750 / -1750 Weight 66.1 kg Intake: IV 1000 / 1000 1000 / 1000 1/2 Normal Saline Inj 1,000 ML 1000 / 1000 1000 / 1000 @ 75 mls/hr IV.CONT .[id number] [facility] Rx#:[id number] Oral 380 / 380 0 / 0 Output: Urine 1800 / 1800 2750 / 2750 Other: # Bowel Movements 0 0 Narrative: GENERAL: NAD, A&Ox0 HEAD: Normocephalic. NECK: Supple, trachea midline. No lymphadenopathy. EYES: No scleral icterus. No injection or drainage. CARDIOVASCULAR: Regular rate and rhythm without murmurs, gallops, or rubs. RESPIRATORY: Breath sounds equal bilaterally. No accessory muscle use. GASTROINTESTINAL: Abdomen soft, non-tender, nondistended. MUSCULOSKELETAL: No cyanosis, or edema. SKIN: Warm and dry. NEURO: No focal neurological deficits. - Urinary Catheter Management Indwelling Urethral Catheter Cath placed during this visit: yes Reason for continuing: Acute urinary retention Insertion date: 12/14/17 Insertion time: 15:30 Results - Labs CBC & Chem 7: 12/16/17 05:10 12/16/17 05:10 Microbiology 10/22/18 18:30 Catheterized Urine Urine Culture - Final No growth in 48 hours Assessment and Plan - Plan 62-year-old male admitted secondary to altered mental status Repeat potassium supplementation this morning. Patient placed on a twice daily 10 mEq potassium. Continue to monitor potassium levels. Patient will be medically stable for discharge when potassium level stabilized, however placement may be an issue. Suspected Wernicke's encephalopathy Chronic encephalopathy History of alcoholism Chronic transaminitis Supportive care No further DTs or withdrawal Placement pending Dysphagia Speech therapy following puree diet with honey thickened liquids HTN Norvasc to 10mg daily Vasotec as need Follow blood pressure Urinary retention montemayor catheter in place Continue Flomax 0.4mg MARILY Avoid nephrotoxins Monitor renal function Hypokalemia Potassium levels Replace as needed Discharge plan Mental status is not improving, likely Wernicke's encephalopathy Long-term placement likely needed
[2017-12-18 03:50] LABS: DS DNA Ab (Crithidia) NEGATIVE (NEGATIVE)
[2017-12-18] MEDS: Sodium Chloride 0.45 % Inj 1,000 ML IV.CONT SCH ×2 (05:56→21:03)
[2017-12-18 08:17] LABS: Baso # (Auto) 0.1 th/mm3 (0.0-0.2); Baso % (Auto) 0.9 % (0.0-2.0); Eos # (Auto) 0.1 th/mm3 (0.0-0.4); Eos % (Auto) 1.8 % (0.0-4.0); Hematocrit 26.6 % (39.0-51.0); Hemoglobin 9.2 gm/dL (13.0-17.0); Lymph # (Auto) 0.8 th/mm3 (1.0-4.8); Lymph % (Auto) 12.7 % (9.0-44.0); Mean Corpuscular HGB Conc 34.5 % (32.0-36.0); Mean Corpuscular Hemoglobin 32.6 pg (27.0-34.0); Mean Corpuscular Volume 94.5 fL (80.0-100.0); Mean Platelet Volume 9.8 fL (7.0-11.0); Mono # (Auto) 0.5 th/mm3 (0.0-0.9); Mono % (Auto) 8.2 % (0.0-8.0); Neut % (Auto) 76.4 % (16.0-70.0); Platelet Count 177 th/mm3 (150-450); Red Blood Count 2.82 mil/mm3 (4.50-5.90); Red Cell Distribution Width 14.1 % (11.6-17.2); White Blood Count 6.6 th/mm3 (4.0-11.0)
[2017-12-18 08:35] LABS: Albumin 2.2 g/dL (3.4-5.0); Anion Gap 14 meq/L (5-15); Aspartate Aminotransferase 56 U/L (15-37); Blood Urea Nitrogen 13 mg/dL (7-18); Carbon Dioxide 19.5 meq/L (21.0-32.0); Chloride 103 meq/L (98-107); Glomerular Filtration Rate 87 mL/min (>89); Glucose,Random 81 mg/dL (74-106); Potassium 3.8 meq/L (3.5-5.1); Sodium 136 meq/L (136-145)
[2017-12-18 08:36] LABS: Alanine Aminotransferase 29 U/L (12-78)
[2017-12-18 08:38] LABS: Alkaline Phosphatase 82 U/L (45-117); Total Protein 6.4 g/dL (6.4-8.2)
[2017-12-18] MEDS: amLODIPine 10 MG Tablet PO SCH (10:33)
[2017-12-18] MEDS: Senna/Docusate Sodium 8.6/50 MG Tablet PO SCH ×2 (10:33→21:04)
[2017-12-18] MEDS: Modafinil 200 MG Tablet PO SCH (10:34)
--- NOTE | 2017-12-18 11:39 | P.DS ---
Date of admission: 12/02/17 14:55 Primary care physician: UNKNOWN Brief History from admission: Mr. Jo is an unknown aged male who was brought to the ED by EMS for evaluation of altered mental status. Patient is a poor historian due to AMS, history is obtained from the ED and EMS staff. Patient had not been seen outside of his condo in a day by maintenance workers. The workers called EMS, who found the patient on the ground incontinent of urine and feces with altered mental status. He is unable to answer questions about his name, age, or date of . He has no specific complaints. DS: Medications - Discharge Medications Prescriptions: amlodipine [Norvasc] 10 mg PO DAILY #30 tab aspirin 162 mg PO DAILY #30 tab modafinil 100 mg PO DAILY #30 tab potassium chloride [Klor-Con 10] 10 meq PO BID #60 tab risperidone [Risperdal] 0.25 mg PO BID PRN #60 tab PRN Reason: Agitation tamsulosin 0.4 mg PO DAILY #30 cap DS: Summary Hospital Course: Mr. Euceda is a 62-year-old male. He was brought to the hospital due to altered mental status. He has been treated here for lactic acidosis and his altered mental status. However altered mental status appears to be related to alcohol abuse history and Warnicke's encephalopathy is suspected. Though he has improved from time of admit he is not improved to a functional status and is not anticipated to be functional again in the future. Long-term placement is needed. Patient had recent issues with hypokalemia but he started on supplement and this is stabilized. No further medical issues. Patient medically cleared and stable for discharge to retirement facility or other long-term placement once placement available. - Time Spent with Patient Total time spent providing and/or coordinating discharge services: Less than 30 minutes Exam Vital signs: Vital Signs 12/17/17 12:00 12/17/17 20:00 12/18/17 00:00 Temperature 99.3 F 98.1 F 100.4 F H Pulse Rate 104 H 113 H 114 H Respiratory Rate 18 24 24 Blood Pressure 164/86 H 138/73 139/90 Pulse Oximetry 95 95 96 12/18/17 04:00 12/18/17 08:00 Temperature 99.5 F 100.6 F H Pulse Rate 114 H 121 H Respiratory Rate 20 22 Blood Pressure 157/80 H 147/97 H Pulse Oximetry 97 Intake & Output 12/17/17 12/18/17 12/18/17 18:59 06:59 18:59 Intake Total 1000 / 1000 1007 / 1007 Output Total 1225 / 1225 350 / 350 Balance -225 / -225 657 / 657 Weight 65.2 kg Intake: IV 1000 / 1000 1007 / 1007 1/2 Normal Saline Inj 1,000 ML 1000 / 1000 1007 / 1007 @ 75 mls/hr IV.CONT .[id number] [facility] Rx#:[id number] Oral 0 / 0 0 / 0 Output: Urine 1225 / 1225 350 / 350 Other: Date of Last Bowel Movement 12/14/17 12/14/17 # Bowel Movements 0 1 Narrative: GENERAL: NAD, A&Ox0 HEAD: Normocephalic. NECK: Supple, trachea midline. No lymphadenopathy. EYES: No scleral icterus. No injection or drainage. CARDIOVASCULAR: Regular rate and rhythm without murmurs, gallops, or rubs. RESPIRATORY: Breath sounds equal bilaterally. No accessory muscle use. GASTROINTESTINAL: Abdomen soft, non-tender, nondistended. MUSCULOSKELETAL: No cyanosis, or edema. SKIN: Warm and dry. NEURO: No focal neurological deficits. Results Procedures completed during hospitalization: none Labs on day of discharge: Labs from last 24 hours 12/18/17 12/18/17 12/12/17 07:05 07:05 15:42 WBC 6.6 RBC 2.82 L Hgb 9.2 L Hct 26.6 L MCV 94.5 MCH 32.6 MCHC 34.5 RDW 14.1 Plt Count 177 MPV 9.8 Neut % (Auto) 76.4 H Lymph % (Auto) 12.7 Victoria % (Auto) 8.2 H Eos % (Auto) 1.8 Baso % (Auto) 0.9 Neut # (Auto) 5.0 Lymph # (Auto) 0.8 L Victoria # (Auto) 0.5 Eos # (Auto) 0.1 Baso # (Auto) 0.1 WBC Differential . Differential Comment Auto diff final Sodium 136 Potassium 3.8 Chloride 103 Carbon Dioxide 19.5 L Anion Gap 14 BUN 13 Creatinine 0.88 Estimated GFR 87 L Random Glucose 81 Calcium 8.0 L Total Bilirubin 0.8 AST 56 H ALT 29 Alkaline Phosphatase 82 Total Protein 6.4 Albumin 2.2 L Rheumatoid Factor Less than 14 KERRY Screen Negative KERRY Titer ND KERRY Pattern ND SS-A Antibody <1.0 neg SS-B Antibody <1.0 neg Sm (Rooney) Antibody <1.0 neg SM/HAT CLEANER Antibody <1.0 neg Scl-70 Antibody <1.0 neg Anti-ds DNA Titer (Crith) ND Anti-ds DNA (Crithidia) Negative Preliminary micro results at discharge 12/04/17 13:55 Mycobacterial Culture - Preliminary Cerebral Spinal Fluid - Lumbar Puncture No growth in 1 week - Impressions ITS Impressions Chest X-Ray 12/02/17 11:24 CONCLUSION: No acute intrathoracic disease. Head CT 12/02/17 11:24 CONCLUSION: 1. Negative noncontrast head CT. . Hip X-Ray 12/02/17 11:34 CONCLUSION: 1. No acute fracture or joint dislocation. 2. Mild to moderate degenerative arthritis. Lumbar Spine CT 12/02/17 12:32 CONCLUSION: 1. Mild annular disc bulges at the L1-2 and L3-4 levels with visualized protrusion. Abdomen/Pelvis CT 12/02/17 12:59 CONCLUSION: 1. Status post cholecystectomy. 2. A few scattered diverticula along the sigmoid colon without inflammatory changes. 3. Otherwise, unremarkable exam. Head MRI 12/04/17 00:00 CONCLUSION: 1. Remote left cerebellar lacunar infarcts. 2. No acute intracranial abnormality. Lumbar Puncture Fluoroscopy 12/04/17 10:55 CONCLUSION: 1. Uncomplicated fluoroscopically guided lumbar puncture. 2. Normal opening pressure of 16 cm of water. Discharge Plan - Discharge Disposition Patient Disposition: 03 Discharge to SNF - Discharge Condition Condition: Stable - Discharge Order Discharge Orders: Discharge Order (Routine); Ordered 12/18/17 Ordered By: Harry Lloyd - Discharge Details Anticipated Discharge Date: 12/18/17 Discharge Comment: Medically stable, may discharge when placement becomes avaliable - Physicians Team Primary Care Provider: UNKNOWN, Attending Provider: Harry Lloyd Other Providers: Cesar Godfrey MD ; Nelson Parnell MD ; Alexsander Butler, PhD ; [employer] ; [facility],[place]
[2017-12-18] MEDS: Acetaminophen 325 MG Tablet PO PRN (13:00)
--- NOTE | 2017-12-18 18:46 | P.PNNEU ---
Subjective Subjective Comments: no mcneill, no cp Active Medications: Active Medications Acetaminophen (Tylenol) 650 mg PO Q4H PRN PRN Reason: Temp > 100.4 Last Admin: 12/18/17 13:00 Dose: 650 mg Al Hydroxide/Mg Hydroxide (Milk Of Magnesia Liq) 30 ml PO Q12H PRN PRN Reason: Mild Constipation Amlodipine Besylate (Norvasc) 10 mg PO DAILY [facility] Last Admin: 12/18/17 10:33 Dose: 10 mg Aspirin (Aspirin Chew) 162 mg PO DAILY [facility] Last Admin: 12/18/17 10:35 Dose: 162 mg Bisacodyl (Dulcolax Supp) 10 mg RECTAL DAILY PRN PRN Reason: SEVERE CONSITIPATION Clonidine HCl (Catapres) 0.1 mg PO Q6H PRN PRN Reason: SYS BP GREATER THAN 160 MMHG Enalaprilat (Vasotec Inj) 1.25 mg IV.PUSH Q6H PRN PRN Reason: SBP>160, DBP>90 Last Admin: 12/14/17 04:55 Dose: 1.25 mg Flumazenil (Romazecon Inj) 0.2 mg IV.PUSH Q1M PRN PRN Reason: OVERSEDATION Haloperidol Lactate (Haldol Inj) 1 mg IV.PUSH Q15M PRN PRN Reason: for severe agitation Sodium Chloride (Ns Inj) 1,000 mls @ 0 mls/hr IV.SIG BOLUS [facility] Last Infusion: 12/02/17 13:00 Dose: Infused Sodium Chloride (1/2 Normal Saline Inj) 1,000 mls @ 75 mls/hr IV.CONT .[id number] [facility] Last Infusion: 12/18/17 06:00 Dose: 75 mls/hr Lactulose (Lactulose Liq) 30 ml PO DAILY PRN PRN Reason: SEVERE CONSITIPATION Lorazepam (Ativan) 1 mg PO Q4H PRN PRN Reason: for CIWA 8-10 Last Admin: 12/03/17 21:11 Dose: 1 mg Lorazepam (Ativan Inj) 2 mg IV.PUSH Q2H PRN PRN Reason: for CIWA 11-14 Lorazepam (Ativan Inj) 2 mg IV.PUSH Q1H PRN PRN Reason: for CIWA 15-20 Lorazepam (Ativan Inj) 2 mg IV.PUSH Q15M PRN PRN Reason: for CIWA > 20 Lorazepam (Ativan Inj) 1 mg IV.PUSH Q4H PRN PRN Reason: for CIWA 8-10 Last Admin: 12/06/17 04:52 Dose: 1 mg Lorazepam (Ativan) 2 mg PO Q2H PRN PRN Reason: for CIWA 11-14 Miscellaneous (Pill Splitter) 1 each OTHER UNSCH PRN PRN Reason: SEE LABEL COMMENTS Modafinil (Provigil) 100 mg PO DAILY [facility] Last Admin: 12/18/17 10:34 Dose: 100 mg Ondansetron HCl (Zofran Inj) 4 mg IV.PUSH Q6H PRN PRN Reason: NAUSEA OR VOMITING Pantoprazole Sodium (Protonix) 40 mg PO DAILY [facility] Last Admin: 12/18/17 10:34 Dose: 40 mg Potassium Chloride (Klor-Con 10) 10 meq PO BID [facility] Last Admin: 12/18/17 10:34 Dose: 10 meq Risperidone (Risperdal) 0.25 mg PO BID PRN PRN Reason: AGITATION Senna/Docusate Sodium (Esperanza-Colace) 1 tab PO BID [facility] Last Admin: 12/18/17 10:33 Dose: 1 tab Sennosides (Senokot) 17.2 mg PO Q12H PRN PRN Reason: Moderate Constipation Tamsulosin HCl (Flomax) 0.4 mg PO DAILY [facility] Last Admin: 12/18/17 10:34 Dose: 0.4 mg Thiamine HCl (Thiamine Inj) 100 mg IM DAILY [facility] Last Admin: 12/18/17 10:33 Dose: 100 mg Allergies/Adverse Reactions: Allergies Allergy/AdvReac Type Severity Reaction Status Date / Time codeine Allergy Severe PASSES OUT Unverified 12/12/17 13:15 Review of Systems All other systems reviewed negative except as stated in HPI Physical Exam Vital signs: Vital Signs 12/17/17 20:00 12/18/17 00:00 12/18/17 04:00 Temperature 98.1 F 100.4 F H 99.5 F Pulse Rate 113 H 114 H 114 H Respiratory Rate 24 24 20 Blood Pressure 138/73 139/90 157/80 H Pulse Oximetry 95 96 12/18/17 08:00 12/18/17 12:00 12/18/17 16:00 Temperature 100.6 F H 101.5 F H 97.8 F Pulse Rate 121 H 121 H 106 H Respiratory Rate 22 20 18 Blood Pressure 147/97 H 144/83 H 124/75 Pulse Oximetry 97 96 97 Intake & Output 12/17/17 12/18/17 12/18/17 18:59 06:59 18:59 Intake Total 1000 / 1000 1007 / 1007 0 / 0 Output Total 1225 / 1225 350 / 350 300 / 300 Balance -225 / -225 657 / 657 -300 / -300 Weight 65.2 kg Intake: IV 1000 / 1000 1007 / 1007 1/2 Normal Saline Inj 1,000 ML 1000 / 1000 1007 / 1007 @ 75 mls/hr IV.CONT .[id number] [facility] Rx#:[id number] Oral 0 / 0 0 / 0 0 / 0 Output: Urine 1225 / 1225 350 / 350 300 / 300 Other: Date of Last Bowel Movement 12/14/17 12/14/17 # Bowel Movements 0 1 1 Narrative: GENERAL: in no acute distress CARDIOVASCULAR: Regular rate and rhythm. RESPIRATORY: No accessory muscle use. GASTROINTESTINAL: Abdomen soft, non-tender, nondistended. MUSCULOSKELETAL: Extremities without clubbing, cyanosis, or edema. No obvious deformities. NEUROLOGICAL: alerts, occasionally follow simple motor request inattentive, not cover setting very much, no gaze deviation, no facial asymmetry localized all 4 extremity upper extremity, plantarflex her no clonus, no involuntary movements otherwise, PSYCHIATRIC: Confused . - Constitutional no acute distress - Routine HEENT Exam Head: Present: normocephalic - Urinary Catheter Management Indwelling Urethral Catheter Cath placed during this visit: yes Reason for continuing: Acute urinary retention Insertion date: 12/14/17 Insertion time: 15:30 Objective Laboratory Results - last 24 hr 12/12/17 12/18/17 12/18/17 15:42 07:05 07:05 WBC 6.6 RBC 2.82 L Hgb 9.2 L Hct 26.6 L MCV 94.5 MCH 32.6 MCHC 34.5 RDW 14.1 Plt Count 177 MPV 9.8 Neut % (Auto) 76.4 H Lymph % (Auto) 12.7 Barber % (Auto) 8.2 H Eos % (Auto) 1.8 Baso % (Auto) 0.9 Neut # (Auto) 5.0 Lymph # (Auto) 0.8 L Barber # (Auto) 0.5 Eos # (Auto) 0.1 Baso # (Auto) 0.1 WBC Differential . Differential Comment Auto diff final Sodium 136 Potassium 3.8 Chloride 103 Carbon Dioxide 19.5 L Anion Gap 14 BUN 13 Creatinine 0.88 Estimated GFR 87 L Random Glucose 81 Calcium 8.0 L Total Bilirubin 0.8 AST 56 H ALT 29 Alkaline Phosphatase 82 Total Protein 6.4 Albumin 2.2 L Anti-ds DNA Titer (Crith) ND Anti-ds DNA (Crithidia) Negative Microbiology 12/04/17 13:55 Acid Fast Bacilli Smear - Final Cerebral Spinal Fluid - Lumbar Puncture No acid fast bacilli seen Mycobacterial Culture - Preliminary No growth in 2 weeks Review/Management - Diagnosis (1) Acute metabolic encephalopathy Code(s): G93.41 - Metabolic encephalopathy Status: Acute Current Visit: Yes (2) Acute kidney injury Code(s): N17.9 - Acute kidney failure, unspecified Status: Acute Current Visit: Yes (3) Hypertensive urgency Code(s): I16.0 - Hypertensive urgency Status: Acute Current Visit: Yes - Review/Management Plan: hypertensive and in renal failure on admission; ?wernickes encephalopathy Unknown if any history of toxic ingestion or EtOH withdrawal Urine drug screen negative. Ethanol level negative CSF negative for infection thus far slightly elevated protein nonspecific. WBC 2, normal glucose. Continue IV acyclovir until herpes PCR returned MRI brain negative for any acute lesion old infarcts HIV, RPR nonreactive Follow-up KERRY, ammonia level Recommendation increase provigil to 200mg qd Likely require snf placement No driving Follow exam
[2017-12-19] MEDS: Sodium Chloride 0.45 % Inj 1,000 ML IV.CONT SCH ×2 (08:05→20:37)
[2017-12-19] MEDS: Senna/Docusate Sodium 8.6/50 MG Tablet PO SCH ×2 (08:06→20:35)
[2017-12-19] MEDS: Modafinil 200 MG Tablet PO SCH (08:07)
[2017-12-19] MEDS: amLODIPine 10 MG Tablet PO SCH (08:07)
--- NOTE | 2017-12-19 08:29 | P.PNNEU ---
Subjective Subjective Comments: No cp, no dyspnea, no mcneill, no focal weakness, no vision loss Active Medications: Active Medications Acetaminophen (Tylenol) 650 mg PO Q4H PRN PRN Reason: Temp > 100.4 Last Admin: 12/18/17 13:00 Dose: 650 mg Al Hydroxide/Mg Hydroxide (Milk Of Magnesia Liq) 30 ml PO Q12H PRN PRN Reason: Mild Constipation Amlodipine Besylate (Norvasc) 10 mg PO DAILY [facility] Last Admin: 12/19/17 08:07 Dose: 10 mg Aspirin (Aspirin Chew) 162 mg PO DAILY [facility] Last Admin: 12/19/17 08:07 Dose: 162 mg Bisacodyl (Dulcolax Supp) 10 mg RECTAL DAILY PRN PRN Reason: SEVERE CONSITIPATION Clonidine HCl (Catapres) 0.1 mg PO Q6H PRN PRN Reason: SYS BP GREATER THAN 160 MMHG Enalaprilat (Vasotec Inj) 1.25 mg IV.PUSH Q6H PRN PRN Reason: SBP>160, DBP>90 Last Admin: 12/14/17 04:55 Dose: 1.25 mg Flumazenil (Romazecon Inj) 0.2 mg IV.PUSH Q1M PRN PRN Reason: OVERSEDATION Haloperidol Lactate (Haldol Inj) 1 mg IV.PUSH Q15M PRN PRN Reason: for severe agitation Sodium Chloride (Ns Inj) 1,000 mls @ 0 mls/hr IV.SIG BOLUS [facility] Last Infusion: 12/02/17 13:00 Dose: Infused Sodium Chloride (1/2 Normal Saline Inj) 1,000 mls @ 75 mls/hr IV.CONT .[id number] [facility] Last Admin: 12/19/17 08:05 Dose: 75 mls/hr Lactulose (Lactulose Liq) 30 ml PO DAILY PRN PRN Reason: SEVERE CONSITIPATION Lorazepam (Ativan) 1 mg PO Q4H PRN PRN Reason: for CIWA 8-10 Last Admin: 12/03/17 21:11 Dose: 1 mg Lorazepam (Ativan Inj) 2 mg IV.PUSH Q2H PRN PRN Reason: for CIWA 11-14 Lorazepam (Ativan Inj) 2 mg IV.PUSH Q1H PRN PRN Reason: for CIWA 15-20 Lorazepam (Ativan Inj) 2 mg IV.PUSH Q15M PRN PRN Reason: for CIWA > 20 Lorazepam (Ativan Inj) 1 mg IV.PUSH Q4H PRN PRN Reason: for CIWA 8-10 Last Admin: 12/06/17 04:52 Dose: 1 mg Lorazepam (Ativan) 2 mg PO Q2H PRN PRN Reason: for CIWA 11-14 Miscellaneous (Pill Splitter) 1 each OTHER UNSCH PRN PRN Reason: SEE LABEL COMMENTS Modafinil (Provigil) 200 mg PO DAILY [facility] Last Admin: 12/19/17 08:07 Dose: 200 mg Ondansetron HCl (Zofran Inj) 4 mg IV.PUSH Q6H PRN PRN Reason: NAUSEA OR VOMITING Pantoprazole Sodium (Protonix) 40 mg PO DAILY [facility] Last Admin: 12/19/17 08:06 Dose: 40 mg Potassium Chloride (Klor-Con 10) 10 meq PO BID [facility] Last Admin: 12/19/17 08:07 Dose: 10 meq Risperidone (Risperdal) 0.25 mg PO BID PRN PRN Reason: AGITATION Senna/Docusate Sodium (Esperanza-Colace) 1 tab PO BID [facility] Last Admin: 12/19/17 08:06 Dose: 1 tab Sennosides (Senokot) 17.2 mg PO Q12H PRN PRN Reason: Moderate Constipation Tamsulosin HCl (Flomax) 0.4 mg PO DAILY [facility] Last Admin: 12/19/17 08:07 Dose: 0.4 mg Thiamine HCl (Thiamine Inj) 100 mg IM DAILY [facility] Last Admin: 12/19/17 08:06 Dose: 100 mg Allergies/Adverse Reactions: Allergies Allergy/AdvReac Type Severity Reaction Status Date / Time codeine Allergy Severe PASSES OUT Unverified 12/12/17 13:15 Review of Systems All other systems reviewed negative except as stated in HPI Physical Exam Vital signs: Vital Signs 12/18/17 12:00 12/18/17 16:00 12/18/17 20:00 Temperature 101.5 F H 97.8 F 98.5 F Pulse Rate 127 H 105 H 105 H Respiratory Rate 20 18 20 Blood Pressure 144/83 H 124/75 138/76 Pulse Oximetry 96 97 98 12/19/17 00:00 12/19/17 04:00 Temperature 99.3 F 98.7 F Pulse Rate 105 H 103 H Respiratory Rate 20 20 Blood Pressure 132/81 132/76 Pulse Oximetry 97 98 Intake & Output 12/18/17 12/19/17 12/19/17 18:59 06:59 18:59 Intake Total 0 / 0 1890 / 1890 900 / 900 Output Total 300 / 300 1000 / 1000 Balance -300 / -300 890 / 890 900 / 900 Weight 65 kg Intake: IV 1890 / 1890 900 / 900 1/2 Normal Saline Inj 1,000 ML 1890 / 1890 900 / 900 @ 75 mls/hr IV.CONT .[id number] [facility] Rx#:[id number] Oral 0 / 0 0 / 0 Output: Urine 300 / 300 1000 / 1000 Other: Date of Last Bowel Movement 12/14/17 12/19/17 # Bowel Movements 1 0 Narrative: GENERAL: in no acute distress CARDIOVASCULAR: Regular rate and rhythm. RESPIRATORY: No accessory muscle use. GASTROINTESTINAL: Abdomen soft, non-tender, nondistended. MUSCULOSKELETAL: Extremities without clubbing, cyanosis, or edema. No obvious deformities. NEUROLOGICAL: alerts, oriented to self. Hypophonic speech, able to tell me his date of thought he was in the doctor's office, occasionally follow simple motor request inattentive, , no gaze deviation, no facial asymmetry localized all 4 extremity upper extremity, plantarflex her no clonus, no involuntary movements otherwise, PSYCHIATRIC: Confused, calm . - Constitutional no acute distress - Routine HEENT Exam Head: Present: normocephalic Eye: Present: EOMI - Urinary Catheter Management Indwelling Urethral Catheter Cath placed during this visit: yes Reason for continuing: Acute urinary retention Insertion date: 12/14/17 Insertion time: 15:30 Objective Laboratory Results - last 24 hr 12/18/17 07:05 Sodium 136 Potassium 3.8 Chloride 103 Carbon Dioxide 19.5 L Anion Gap 14 BUN 13 Creatinine 0.88 Estimated GFR 87 L Random Glucose 81 Calcium 8.0 L Total Bilirubin 0.8 AST 56 H ALT 29 Alkaline Phosphatase 82 Total Protein 6.4 Albumin 2.2 L Microbiology 12/04/17 13:55 Acid Fast Bacilli Smear - Final Cerebral Spinal Fluid - Lumbar Puncture No acid fast bacilli seen Mycobacterial Culture - Preliminary No growth in 2 weeks Review/Management - Diagnosis (1) Acute metabolic encephalopathy Code(s): G93.41 - Metabolic encephalopathy Status: Acute Current Visit: Yes (2) Acute kidney injury Code(s): N17.9 - Acute kidney failure, unspecified Status: Acute Current Visit: Yes (3) Hypertensive urgency Code(s): I16.0 - Hypertensive urgency Status: Acute Current Visit: Yes - Review/Management Plan: hypertensive and in renal failure on admission; ?wernickes encephalopathy Unknown if any history of toxic ingestion or EtOH withdrawal Urine drug screen negative. Ethanol level negative CSF negative for infection thus far slightly elevated protein nonspecific. WBC 2, normal glucose. Continue IV acyclovir until herpes PCR returned MRI brain negative for any acute lesion old infarcts HIV, RPR nonreactive Follow-up [facility], ammonia level Recommendation Mental status little better this morning. Oriented times 1 years date of studies in a doctor's office was able to follow DC restraints increase provigil to 200mg qd Likely require snf placement No driving
--- NOTE | 2017-12-19 10:38 | P.PNIM ---
Subjective Interval history: No acute changes. Placement pending. Void trial today. Physical Exam Vital signs: Vital Signs 12/18/17 12:00 12/18/17 16:00 12/18/17 20:00 Temperature 101.5 F H 97.8 F 98.5 F Pulse Rate 127 H 105 H 105 H Respiratory Rate 20 18 20 Blood Pressure 144/83 H 124/75 138/76 Pulse Oximetry 96 97 98 12/19/17 00:00 12/19/17 04:00 12/19/17 08:00 Temperature 99.3 F 98.7 F Pulse Rate 105 H 103 H 102 H Respiratory Rate 20 20 Blood Pressure 132/81 132/76 Pulse Oximetry 97 98 98 Intake & Output 12/18/17 12/19/17 12/19/17 18:59 06:59 18:59 Intake Total 0 / 0 1890 / 1890 900 / 900 Output Total 300 / 300 1000 / 1000 Balance -300 / -300 890 / 890 900 / 900 Weight 65 kg Intake: IV 1890 / 1890 900 / 900 1/2 Normal Saline Inj 1,000 ML 1890 / 1890 900 / 900 @ 75 mls/hr IV.CONT .[id number] [facility] Rx#:[id number] Oral 0 / 0 0 / 0 Output: Urine 300 / 300 1000 / 1000 Other: Date of Last Bowel Movement 12/14/17 12/19/17 # Bowel Movements 1 0 Narrative: GENERAL: NAD, A&Ox0 HEAD: Normocephalic. NECK: Supple, trachea midline. No lymphadenopathy. EYES: No scleral icterus. No injection or drainage. CARDIOVASCULAR: Regular rate and rhythm without murmurs, gallops, or rubs. RESPIRATORY: Breath sounds equal bilaterally. No accessory muscle use. GASTROINTESTINAL: Abdomen soft, non-tender, nondistended. MUSCULOSKELETAL: No cyanosis, or edema. SKIN: Warm and dry. NEURO: No focal neurological deficits. - Urinary Catheter Management Indwelling Urethral Catheter Cath placed during this visit: yes Reason for continuing: Acute urinary retention Insertion date: 12/14/17 Insertion time: 15:30 Results - Labs CBC & Chem 7: 12/18/17 07:05 12/18/17 07:05 Microbiology 12/04/17 13:55 Cerebral Spinal Fluid - Lumbar Puncture Acid Fast Bacilli Smear - Final No acid fast bacilli seen 12/04/17 13:55 Cerebral Spinal Fluid - Lumbar Puncture Mycobacterial Culture - Preliminary No growth in 2 weeks - Procedures none Assessment and Plan - Plan 62-year-old male admitted secondary to altered mental status Void trial today. Recheck potassium in a.m. tomorrow. Discharge pending placement options. Long-term care needed Suspected Wernicke's encephalopathy Chronic encephalopathy History of alcoholism Chronic transaminitis Supportive care No further DTs or withdrawal Placement pending Dysphagia Speech therapy following puree diet with honey thickened liquids HTN Norvasc to 10mg daily Vasotec as need Follow blood pressure Urinary retention montemayor catheter in place Continue Flomax 0.4mg MARILY Avoid nephrotoxins Monitor renal function Hypokalemia Potassium levels Replace as needed Discharge plan Mental status is not improving, likely Wernicke's encephalopathy Long-term placement likely needed
[2017-12-20 07:02] LABS: Baso % (Auto) 0.6 % (0.0-2.0); Eos # (Auto) 0.1 th/mm3 (0.0-0.4); Eos % (Auto) 2.7 % (0.0-4.0); Hemoglobin 8.8 gm/dL (13.0-17.0); Lymph # (Auto) 0.9 th/mm3 (1.0-4.8); Lymph % (Auto) 17.5 % (9.0-44.0); Mean Corpuscular HGB Conc 33.8 % (32.0-36.0); Mean Corpuscular Hemoglobin 32.5 pg (27.0-34.0); Mean Corpuscular Volume 96.3 fL (80.0-100.0); Mean Platelet Volume 9.3 fL (7.0-11.0); Mono # (Auto) 0.4 th/mm3 (0.0-0.9); Mono % (Auto) 8.5 % (0.0-8.0); Neut # (Auto) 3.7 th/mm3 (1.8-7.7); Neut % (Auto) 70.7 % (16.0-70.0); Platelet Count 218 th/mm3 (150-450); White Blood Count 5.3 th/mm3 (4.0-11.0)
[2017-12-20 07:36] LABS: Alanine Aminotransferase 34 U/L (12-78); Anion Gap 9 meq/L (5-15); Aspartate Aminotransferase 71 U/L (15-37); Blood Urea Nitrogen 8 mg/dL (7-18); Carbon Dioxide 24.1 meq/L (21.0-32.0); Chloride 109 meq/L (98-107); Glomerular Filtration Rate Greater Than 89 mL/min (>89); Glucose,Random 85 mg/dL (74-106); Potassium 3.4 meq/L (3.5-5.1); Sodium 142 meq/L (136-145)
[2017-12-20 07:38] LABS: Alkaline Phosphatase 76 U/L (45-117); Total Protein 6.1 g/dL (6.4-8.2)
[2017-12-20] MEDS: amLODIPine 10 MG Tablet PO SCH (09:35)
[2017-12-20] MEDS: Modafinil 200 MG Tablet PO SCH (09:35)
[2017-12-20] MEDS: Senna/Docusate Sodium 8.6/50 MG Tablet PO SCH ×2 (09:35→20:02)
[2017-12-20] MEDS: Sodium Chloride 0.45 % Inj 1,000 ML IV.CONT SCH ×2 (10:16→23:12)
--- NOTE | 2017-12-20 14:20 | P.PNIM ---
Subjective Interval history: Hypokalemia, mild, this morning. Mental status is unchanged. No distress. Physical Exam Vital signs: Vital Signs 12/19/17 16:00 12/19/17 20:00 12/20/17 00:00 Temperature 97.6 F 98.1 F 98.5 F Pulse Rate 100 H 104 H 91 H Respiratory Rate 20 18 18 Blood Pressure 135/82 109/79 141/100 H Pulse Oximetry 97 97 98 12/20/17 04:00 12/20/17 08:00 Temperature 98.4 F 97.9 F Pulse Rate 91 H 96 H Respiratory Rate 18 19 Blood Pressure 139/79 115/76 Pulse Oximetry 99 99 Intake & Output 12/19/17 12/20/17 12/20/17 18:59 06:59 18:59 Intake Total 900 / 900 1592 / 1592 408 / 408 Output Total 2049 Balance 900 / 900 -458 / -458 408 / 408 Weight 65.5 kg Intake: IV 900 / 900 1592 / 1592 408 / 408 1/2 Normal Saline Inj 1,000 ML 900 / 900 1592 / 1592 408 / 408 @ 75 mls/hr IV.CONT .[id number] [facility] Rx#:[id number] Output: Urine Amount (Catheter) 2049 Indwelling Urethral Catheter 2049 Narrative: GENERAL: NAD, A&Ox0 HEAD: Normocephalic. NECK: Supple, trachea midline. No lymphadenopathy. EYES: No scleral icterus. No injection or drainage. CARDIOVASCULAR: Regular rate and rhythm without murmurs, gallops, or rubs. RESPIRATORY: Breath sounds equal bilaterally. No accessory muscle use. GASTROINTESTINAL: Abdomen soft, non-tender, nondistended. MUSCULOSKELETAL: No cyanosis, or edema. SKIN: Warm and dry. NEURO: No focal neurological deficits. - Urinary Catheter Management Indwelling Urethral Catheter Cath placed during this visit: yes, but has since been removed by the nurse Reason for continuing: Chronic Urinary Retention Insertion date: 12/19/17 Insertion time: 22:00 Removal date: 12/19/17 Removal time: 08:00 Results - Labs CBC & Chem 7: 12/20/17 06:00 12/20/17 06:00 Laboratory Results - last 24 hr 12/20/17 12/20/17 06:00 06:00 WBC 5.3 RBC 2.70 L Hgb 8.8 L Hct 26.0 L MCV 96.3 MCH 32.5 MCHC 33.8 RDW 14.0 Plt Count 218 MPV 9.3 Neut % (Auto) 70.7 H Lymph % (Auto) 17.5 [place] % (Auto) 8.5 H Eos % (Auto) 2.7 Baso % (Auto) 0.6 Neut # (Auto) 3.7 Lymph # (Auto) 0.9 L [place] # (Auto) 0.4 Eos # (Auto) 0.1 Baso # (Auto) 0.0 WBC Differential . Differential Comment Auto diff final Sodium 142 Potassium 3.4 L Chloride 109 H Carbon Dioxide 24.1 Anion Gap 9 BUN 8 Creatinine 0.64 Estimated GFR Greater than 89 Random Glucose 85 Calcium 8.0 L Total Bilirubin 0.4 AST 71 H ALT 34 Alkaline Phosphatase 76 Total Protein 6.1 L Albumin 2.0 L - Procedures none Assessment and Plan - Plan 62-year-old male admitted secondary to altered mental status Failed void trial. Recheck potassium in a.m. in 2 days. Discharge pending placement options. Long-term care needed Suspected Wernicke's encephalopathy Chronic encephalopathy History of alcoholism Chronic transaminitis Supportive care No further DTs or withdrawal Placement pending Dysphagia Speech therapy following puree diet with honey thickened liquids HTN Norvasc to 10mg daily Vasotec as need Follow blood pressure Urinary retention montemayor catheter in replaced on 12/20/17 due to failed void trial Continue Flomax 0.4mg MARILY Avoid nephrotoxins Monitor renal function Hypokalemia Potassium levels Replace as needed Discharge plan Mental status is not improving, likely Wernicke's encephalopathy Long-term placement likely needed
[2017-12-21] MEDS: Sodium Chloride 0.45 % Inj 1,000 ML IV.CONT SCH ×2 (01:39→12:36)
[2017-12-21] MEDS: Modafinil 200 MG Tablet PO SCH (10:13)
[2017-12-21] MEDS: Senna/Docusate Sodium 8.6/50 MG Tablet PO SCH ×2 (10:13→20:53)
[2017-12-21] MEDS: amLODIPine 10 MG Tablet PO SCH (10:13)
--- NOTE | 2017-12-21 15:09 | P.PNIM ---
Subjective Interval history: No distress. Patient resting comfortably. Long-term placement options are being pursued. Physical Exam Vital signs: Vital Signs 12/20/17 16:00 12/20/17 20:00 12/21/17 00:00 Temperature 98.3 F 98 F Pulse Rate 97 H 104 H 96 H Respiratory Rate 20 16 Blood Pressure 114/70 150/95 H Pulse Oximetry 98 98 12/21/17 04:00 12/21/17 08:00 12/21/17 12:00 Temperature 98.1 F 97.3 F L 97.2 F L Pulse Rate 62 85 95 H Respiratory Rate 16 19 19 Blood Pressure 147/90 H 134/80 94/66 L Pulse Oximetry 98 97 99 Intake & Output 12/20/17 12/21/17 12/21/17 18:59 06:59 18:59 Intake Total 408 / 408 1000 / 1000 1000 / 1000 Balance 408 / 408 1000 / 1000 1000 / 1000 Weight 65.5 kg Intake: IV 408 / 408 1000 / 1000 1000 / 1000 1/2 Normal Saline Inj 1,000 ML 408 / 408 1000 / 1000 1000 / 1000 @ 75 mls/hr IV.CONT .[id number] [facility] Rx#:[id number] Narrative: GENERAL: NAD, A&Ox0 HEAD: Normocephalic. NECK: Supple, trachea midline. No lymphadenopathy. EYES: No scleral icterus. No injection or drainage. CARDIOVASCULAR: Regular rate and rhythm without murmurs, gallops, or rubs. RESPIRATORY: Breath sounds equal bilaterally. No accessory muscle use. GASTROINTESTINAL: Abdomen soft, non-tender, nondistended. MUSCULOSKELETAL: No cyanosis, or edema. SKIN: Warm and dry. NEURO: No focal neurological deficits. - Urinary Catheter Management Indwelling Urethral Catheter Cath placed during this visit: yes, but has since been removed by the nurse Reason for continuing: Chronic Urinary Retention Insertion date: 12/19/17 Insertion time: 22:00 Removal date: 12/19/17 Removal time: 08:00 Results - Labs CBC & Chem 7: 12/20/17 06:00 12/20/17 06:00 - Procedures none Assessment and Plan - Plan 62-year-old male admitted secondary to altered mental status Montemayor catheter to remain in place as patient has urinary obstruction and failed void trial. Recheck potassium in a.m. Discharge pending placement options. Long-term care needed Suspected Wernicke's encephalopathy Chronic encephalopathy History of alcoholism Chronic transaminitis Supportive care No further DTs or withdrawal Placement pending Dysphagia Speech therapy following puree diet with honey thickened liquids HTN Norvasc to 10mg daily Vasotec as need Follow blood pressure Urinary retention montemayor catheter in replaced on 12/20/17 due to failed void trial Continue Flomax 0.4mg MARILY Avoid nephrotoxins Monitor renal function Hypokalemia Potassium levels Replace as needed Discharge plan Mental status is not improving, likely Wernicke's encephalopathy Long-term placement likely needed
[2017-12-22] MEDS: Sodium Chloride 0.45 % Inj 1,000 ML IV.CONT SCH ×2 (02:50→15:27)
[2017-12-22 07:50] LABS: Baso % (Auto) 0.8 % (0.0-2.0); Eos # (Auto) 0.1 th/mm3 (0.0-0.4); Eos % (Auto) 2.3 % (0.0-4.0); Hemoglobin 9.3 gm/dL (13.0-17.0); Lymph % (Auto) 21.4 % (9.0-44.0); Mean Corpuscular HGB Conc 34.6 % (32.0-36.0); Mean Corpuscular Hemoglobin 32.9 pg (27.0-34.0); Mean Corpuscular Volume 95.1 fL (80.0-100.0); Mean Platelet Volume 8.8 fL (7.0-11.0); Mono # (Auto) 0.4 th/mm3 (0.0-0.9); Neut # (Auto) 3.1 th/mm3 (1.8-7.7); Neut % (Auto) 67.5 % (16.0-70.0); Platelet Count 281 th/mm3 (150-450); Red Blood Count 2.84 mil/mm3 (4.50-5.90); Red Cell Distribution Width 14.1 % (11.6-17.2); White Blood Count 4.6 th/mm3 (4.0-11.0)
[2017-12-22 08:10] LABS: Albumin 2.3 g/dL (3.4-5.0); Anion Gap 8 meq/L (5-15); Aspartate Aminotransferase 71 U/L (15-37); Blood Urea Nitrogen 8 mg/dL (7-18); Calcium 8.6 mg/dL (8.5-10.1); Carbon Dioxide 24.9 meq/L (21.0-32.0); Chloride 109 meq/L (98-107); Glomerular Filtration Rate Greater Than 89 mL/min (>89); Glucose,Random 81 mg/dL (74-106); Potassium 3.6 meq/L (3.5-5.1); Sodium 142 meq/L (136-145)
[2017-12-22 08:15] LABS: Alanine Aminotransferase 46 U/L (12-78); Alkaline Phosphatase 87 U/L (45-117); Total Protein 6.5 g/dL (6.4-8.2)
[2017-12-22] MEDS: Modafinil 200 MG Tablet PO SCH (09:16)
[2017-12-22] MEDS: amLODIPine 10 MG Tablet PO SCH (09:16)
[2017-12-22] MEDS: Senna/Docusate Sodium 8.6/50 MG Tablet PO SCH ×2 (11:55→21:34)
--- NOTE | 2017-12-22 12:12 | P.PN ---
Subjective Interval history: Patient doing well. Patient is tolerating p.o., has Cespedes in place, stooling well. Per nursing, patient still confused with no change since admission. Physical Exam Vital signs: Vital Signs 12/21/17 16:00 12/21/17 20:00 12/22/17 00:00 Temperature 97.5 F L 97.5 F L 97.6 F Pulse Rate 103 H 95 H 93 H Respiratory Rate 18 16 16 Blood Pressure 137/81 132/80 129/74 Pulse Oximetry 98 98 97 12/22/17 04:00 12/22/17 08:00 Temperature 97.5 F L 97.3 F L Pulse Rate 103 H 94 H Respiratory Rate 16 18 Blood Pressure 130/78 137/92 H Pulse Oximetry 98 100 Intake & Output 12/21/17 12/22/17 12/22/17 18:59 06:59 18:59 Intake Total 1480 / 1480 1000 / 1000 Output Total 1200 / 1200 1700 / 1700 Balance 280 / 280 -700 / -700 Weight 65.5 kg Intake: IV 1000 / 1000 1000 / 1000 1/2 Normal Saline Inj 1,000 ML 1000 / 1000 1000 / 1000 @ 75 mls/hr IV.CONT .[id number] [facility] Rx#:[id number] Oral 480 / 480 Output: Urine 1200 / 1200 Urine Amount (Catheter) 1700 / 1700 Indwelling Urethral Catheter 1700 / 1700 Other: Date of Last Bowel Movement 12/22/17 12/22/17 # Incontinent Bowel Movements 1 Narrative: GENERAL: Well-nourished male, no acute distress, lying comfortably in bed. SKIN: Warm and dry. HEENT: Normocephalic. Atraumatic. No scleral icterus. No injection or drainage. MOM. NECK: Supple, trachea midline. No JVD or lymphadenopathy. CARDIOVASCULAR: Regular rate and rhythm without murmurs, gallops, or rubs. RESPIRATORY: Breath sounds equal bilaterally. No accessory muscle use. GASTROINTESTINAL: Abdomen soft, non-tender, nondistended. MUSCULOSKELETAL: No cyanosis, or edema. BACK: Nontender without obvious deformity. No CVA tenderness. : Cespedes in place NEURO: AAOx3, no focal deficits, does not follow command, moving all extremities spontaneously. - Urinary Catheter Management Indwelling Urethral Catheter Cath placed during this visit: yes, but has since been removed by the nurse Reason for continuing: Chronic Urinary Retention Insertion date: 12/19/17 Insertion time: 22:00 Removal date: 12/19/17 Removal time: 08:00 Results - Labs CBC & Chem 7: 12/22/17 06:30 12/22/17 06:30 Laboratory Results - last 24 hr 12/22/17 12/22/17 06:30 06:30 WBC 4.6 RBC 2.84 L Hgb 9.3 L Hct 27.0 L MCV 95.1 MCH 32.9 MCHC 34.6 RDW 14.1 Plt Count 281 MPV 8.8 Neut % (Auto) 67.5 Lymph % (Auto) 21.4 [place] % (Auto) 8.0 Eos % (Auto) 2.3 Baso % (Auto) 0.8 Neut # (Auto) 3.1 Lymph # (Auto) 1.0 [place] # (Auto) 0.4 Eos # (Auto) 0.1 Baso # (Auto) 0.0 WBC Differential . Differential Comment Auto diff final Sodium 142 Potassium 3.6 Chloride 109 H Carbon Dioxide 24.9 Anion Gap 8 BUN 8 Creatinine 0.65 Estimated GFR Greater than 89 Random Glucose 81 Calcium 8.6 Total Bilirubin 0.4 AST 71 H ALT 46 Alkaline Phosphatase 87 Total Protein 6.5 Albumin 2.3 L - Procedures none Assessment and Plan - Plan This is a 62-year-old CM with PMHx of Alcohol Abuse and HTN admitted for IP mgmt of altered mental status and suspected Wernicke's encephalopathy, medically stable and pending placement due to encephalopathy not improving, HD# 21 1. Suspected Wernicke's encephalopathy, not improving Chronic encephalopathy History of alcoholism Chronic transaminitis Supportive care No further DT's or withdrawal Placement pending Cont. Mofadinil and Risperdal Cont. MV and thiamine Ammonia 17 on 12/14, F/U in AM Neg HIV/Neg RPR, KERRY Neg Per Neuro 12/19: CSF negative for infection thus far slightly elevated protein nonspecific. WBC 2, normal glucose. Continue IV acyclovir until herpes PCR returned MRI brain negative for any acute lesion old infarcts HIV, RPR nonreactive Follow-up KERRY, ammonia level 2. Dysphagia Speech therapy following Pureed diet with honey thickened liquids 3. HTN Stable, cont. Norvasc and ASA Continue Clonidone and Vasotec PRN Continue to monitor blood pressure 4. Urinary retention Cespedes catheter replaced on 12/20/17 due to failed void trial Continue Flomax 0.4mg 5. MARILY, resolved Cr 0.65 today Avoid nephrotoxins Monitor renal function 6. GERD Cont. PPI 7. Anemia, likely chronic due to alcoholism Hgb 9.3 from 8.8 Will obtain iron studies 8. Disposition: Mental status is not improving, likely Wernicke's encephalopathy. Long-term placement likely needed. Code Status: full Discussed Condition With: patient, RN
[2017-12-23] MEDS: Sodium Chloride 0.45 % Inj 1,000 ML IV.CONT SCH (04:58)
[2017-12-23 09:07] LABS: Baso % (Auto) 0.9 % (0.0-2.0); Eos # (Auto) 0.1 th/mm3 (0.0-0.4); Eos % (Auto) 2.1 % (0.0-4.0); Hemoglobin 9.8 gm/dL (13.0-17.0); Lymph % (Auto) 21.3 % (9.0-44.0); Mean Corpuscular HGB Conc 33.8 % (32.0-36.0); Mean Corpuscular Hemoglobin 32.5 pg (27.0-34.0); Mean Corpuscular Volume 96.4 fL (80.0-100.0); Mean Platelet Volume 8.6 fL (7.0-11.0); Mono # (Auto) 0.4 th/mm3 (0.0-0.9); Mono % (Auto) 7.8 % (0.0-8.0); Neut # (Auto) 3.1 th/mm3 (1.8-7.7); Neut % (Auto) 67.9 % (16.0-70.0); Platelet Count 296 th/mm3 (150-450); Red Blood Count 3.01 mil/mm3 (4.50-5.90); Red Cell Distribution Width 14.2 % (11.6-17.2); White Blood Count 4.5 th/mm3 (4.0-11.0)
[2017-12-23 09:17] LABS: Albumin 2.5 g/dL (3.4-5.0); Anion Gap 6 meq/L (5-15); Aspartate Aminotransferase 73 U/L (15-37); Blood Urea Nitrogen 6 mg/dL (7-18); Calcium 8.8 mg/dL (8.5-10.1); Carbon Dioxide 26.7 meq/L (21.0-32.0); Chloride 108 meq/L (98-107); Glomerular Filtration Rate Greater Than 89 mL/min (>89); Glucose,Random 89 mg/dL (74-106); Potassium 3.8 meq/L (3.5-5.1); Sodium 141 meq/L (136-145)
[2017-12-23 09:18] LABS: Alanine Aminotransferase 53 U/L (12-78)
[2017-12-23 09:22] LABS: % Iron Saturation 33.1 % (20-50); Alkaline Phosphatase 87 U/L (45-117); Iron 64 mcg/dL (65-175); Total Iron Binding Capacity 193 mcg/dL (250-450); Total Protein 6.8 g/dL (6.4-8.2)
[2017-12-23 09:55] VITALS: RESP 18
[2017-12-23] MEDS: Modafinil 200 MG Tablet PO SCH (10:16)
[2017-12-23] MEDS: Senna/Docusate Sodium 8.6/50 MG Tablet PO SCH (10:16)
[2017-12-23] MEDS: amLODIPine 10 MG Tablet PO SCH (10:16)
[2017-12-23 14:04] VITALS: BP 120/77; PULSE 96; TEMP 97.5; O2SAT 100
--- NOTE | 2017-12-23 14:54 | P.PN ---
Subjective Interval history: Patient doing well, tolerating PO, voiding/stooling well. No overnight concerns per RN. Physical Exam Vital signs: Vital Signs 12/22/17 16:00 12/22/17 20:00 12/22/17 23:55 Temperature 97.2 F L 97.5 F L 97.5 F L Pulse Rate 95 H 87 95 H Respiratory Rate 18 17 16 Blood Pressure 137/92 H 129/88 124/84 Pulse Oximetry 99 98 98 12/23/17 04:00 12/23/17 08:00 12/23/17 12:00 Temperature 97.3 F L 97.3 F L 97.5 F L Pulse Rate 96 H 98 H 96 H Respiratory Rate 17 18 18 Blood Pressure 146/83 H 147/81 H 120/77 Pulse Oximetry 98 99 100 Intake & Output 12/22/17 12/23/17 12/23/17 18:59 06:59 18:59 Intake Total 1340 / 1340 1150 / 1150 Output Total 1300 / 1300 900 / 900 Balance 40 / 40 250 / 250 Weight 62.2 kg Intake: IV 980 / 980 1000 / 1000 1/2 Normal Saline Inj 1,000 ML 980 / 980 1000 / 1000 @ 75 mls/hr IV.CONT .[id number] [facility] Rx#:[id number] Oral 360 / 360 150 / 150 Output: Urine 1300 / 1300 900 / 900 Other: Date of Last Bowel Movement 12/22/17 # Bowel Movements 1 1 Narrative: GENERAL: Well-nourished male, no acute distress, lying comfortably in bed. SKIN: Warm and dry. HEENT: Normocephalic. Atraumatic. No scleral icterus. No injection or drainage. MOM. NECK: Supple, trachea midline. No JVD or lymphadenopathy. CARDIOVASCULAR: Regular rate and rhythm without murmurs, gallops, or rubs. RESPIRATORY: Breath sounds equal bilaterally. No accessory muscle use. GASTROINTESTINAL: Abdomen soft, non-tender, nondistended. MUSCULOSKELETAL: No cyanosis, or edema. BACK: Nontender without obvious deformity. No CVA tenderness. : Montemayor in place NEURO: AAOx3, no focal deficits, does not follow command, moving all extremities spontaneously. - Urinary Catheter Management Indwelling Urethral Catheter Cath placed during this visit: yes, but has since been removed by the nurse Reason for continuing: Chronic Urinary Retention Insertion date: 12/19/17 Insertion time: 22:00 Removal date: 12/19/17 Removal time: 08:00 Results - Labs CBC & Chem 7: 12/23/17 08:36 12/23/17 08:36 Laboratory Results - last 24 hr 12/23/17 12/23/17 12/23/17 08:36 08:36 08:36 WBC 4.5 RBC 3.01 L Hgb 9.8 L Hct 29.0 L MCV 96.4 MCH 32.5 MCHC 33.8 RDW 14.2 Plt Count 296 MPV 8.6 Neut % (Auto) 67.9 Lymph % (Auto) 21.3 [place] % (Auto) 7.8 Eos % (Auto) 2.1 Baso % (Auto) 0.9 Neut # (Auto) 3.1 Lymph # (Auto) 1.0 [place] # (Auto) 0.4 Eos # (Auto) 0.1 Baso # (Auto) 0.0 WBC Differential . Differential Comment Auto diff final Sodium 141 Potassium 3.8 Chloride 108 H Carbon Dioxide 26.7 Anion Gap 6 BUN 6 L Creatinine 0.69 Estimated GFR Greater than 89 Random Glucose 89 Calcium 8.8 Iron 64 L TIBC 193 L % Saturation 33.1 Total Bilirubin 0.4 AST 73 H ALT 53 Alkaline Phosphatase 87 Ammonia 16 Total Protein 6.8 Albumin 2.5 L - Procedures none Assessment and Plan - Plan This is a 62-year-old CM with PMHx of Alcohol Abuse and HTN admitted for IP mgmt of altered mental status and suspected Wernicke's encephalopathy, medically stable and pending placement due to encephalopathy not improving, HD# 22 1. Suspected Wernicke's encephalopathy, not improving Chronic encephalopathy History of alcoholism Chronic transaminitis Supportive care No further DT's or withdrawal Placement pending Cont. Mofadinil and Risperdal Cont. MV and thiamine Ammonia 17 on 12/14, F/U in AM Neg HIV/Neg RPR, KERRY Neg Per Neuro 12/19: CSF negative for infection thus far slightly elevated protein nonspecific. WBC 2, normal glucose. Continue IV acyclovir until herpes PCR returned MRI brain negative for any acute lesion old infarcts HIV, RPR nonreactive Follow-up KERRY, ammonia level 2. Dysphagia Speech therapy following Pureed diet with honey thickened liquids 3. HTN Stable, cont. Norvasc and ASA Continue Clonidone and Vasotec PRN Continue to monitor blood pressure 4. Urinary retention Montemayor catheter replaced on 12/20/17 due to failed void trial Continue Flomax 0.4mg 5. MARILY, resolved Cr 0.69 today Avoid nephrotoxins Monitor renal function 6. GERD Cont. PPI 7. Anemia, likely chronic due to alcoholism Hgb 9.8 tody from 9.3 Will obtain iron studies 8. Disposition: Mental status is not improving, likely Wernicke's encephalopathy. Long-term placement likely needed. Will need voiding trial with removal of montemayor. Code Status: full Discussed Condition With: patient, RN
--- NOTE | 2017-12-23 15:46 | P.PNNEU ---
Subjective Subjective Comments: No cp, no dyspnea, no mcneill, no focal weakness, no vision loss Active Medications: Active Medications Acetaminophen (Tylenol) 650 mg PO Q4H PRN PRN Reason: Temp > 100.4 Last Admin: 12/18/17 13:00 Dose: 650 mg Al Hydroxide/Mg Hydroxide (Milk Of Magnesia Liq) 30 ml PO Q12H PRN PRN Reason: Mild Constipation Amlodipine Besylate (Norvasc) 10 mg PO DAILY [facility] Last Admin: 12/23/17 10:16 Dose: 10 mg Aspirin (Aspirin Chew) 162 mg PO DAILY [facility] Last Admin: 12/23/17 10:16 Dose: 162 mg Bisacodyl (Dulcolax Supp) 10 mg RECTAL DAILY PRN PRN Reason: SEVERE CONSITIPATION Clonidine HCl (Catapres) 0.1 mg PO Q6H PRN PRN Reason: SYS BP GREATER THAN 160 MMHG Enalaprilat (Vasotec Inj) 1.25 mg IV.PUSH Q6H PRN PRN Reason: SBP>160, DBP>90 Last Admin: 12/14/17 04:55 Dose: 1.25 mg Flumazenil (Romazecon Inj) 0.2 mg IV.PUSH Q1M PRN PRN Reason: OVERSEDATION Haloperidol Lactate (Haldol Inj) 1 mg IV.PUSH Q15M PRN PRN Reason: for severe agitation Sodium Chloride (Ns Inj) 1,000 mls @ 0 mls/hr IV.SIG BOLUS [facility] Last Infusion: 12/02/17 13:00 Dose: Infused Sodium Chloride (1/2 Normal Saline Inj) 1,000 mls @ 75 mls/hr IV.CONT .[id number] [facility] Last Admin: 12/23/17 04:58 Dose: 75 mls/hr Lactulose (Lactulose Liq) 30 ml PO DAILY PRN PRN Reason: SEVERE CONSITIPATION Lorazepam (Ativan) 1 mg PO Q4H PRN PRN Reason: for CIWA 8-10 Last Admin: 12/03/17 21:11 Dose: 1 mg Lorazepam (Ativan Inj) 2 mg IV.PUSH Q2H PRN PRN Reason: for CIWA 11-14 Lorazepam (Ativan Inj) 2 mg IV.PUSH Q1H PRN PRN Reason: for CIWA 15-20 Lorazepam (Ativan Inj) 2 mg IV.PUSH Q15M PRN PRN Reason: for CIWA > 20 Lorazepam (Ativan Inj) 1 mg IV.PUSH Q4H PRN PRN Reason: for CIWA 8-10 Last Admin: 12/06/17 04:52 Dose: 1 mg Lorazepam (Ativan) 2 mg PO Q2H PRN PRN Reason: for CIWA 11-14 Miscellaneous (Pill Splitter) 1 each OTHER UNSCH PRN PRN Reason: SEE LABEL COMMENTS Modafinil (Provigil) 200 mg PO DAILY [facility] Last Admin: 12/23/17 10:16 Dose: 200 mg Ondansetron HCl (Zofran Inj) 4 mg IV.PUSH Q6H PRN PRN Reason: NAUSEA OR VOMITING Pantoprazole Sodium (Protonix) 40 mg PO DAILY [facility] Last Admin: 12/23/17 12:30 Dose: Not Given Potassium Chloride (Klor-Con 10) 10 meq PO TID [facility] Last Admin: 12/23/17 13:32 Dose: Not Given Senna/Docusate Sodium ([place]-Colace) 1 tab PO BID [facility] Last Admin: 12/23/17 10:16 Dose: 1 tab Sennosides (Senokot) 17.2 mg PO Q12H PRN PRN Reason: Moderate Constipation Tamsulosin HCl (Flomax) 0.4 mg PO DAILY [facility] Last Admin: 12/23/17 12:30 Dose: Not Given Thiamine HCl (Thiamine Inj) 100 mg IM DAILY [facility] Last Admin: 12/23/17 10:16 Dose: 100 mg Allergies/Adverse Reactions: Allergies Allergy/AdvReac Type Severity Reaction Status Date / Time codeine Allergy Severe PASSES OUT Unverified 12/12/17 13:15 Review of Systems All other systems reviewed negative except as stated in HPI Physical Exam Vital signs: Vital Signs 12/22/17 16:00 12/22/17 20:00 12/22/17 23:55 Temperature 97.2 F L 97.5 F L 97.5 F L Pulse Rate 95 H 87 95 H Respiratory Rate 18 17 16 Blood Pressure 137/92 H 129/88 124/84 Pulse Oximetry 99 98 98 12/23/17 04:00 12/23/17 08:00 12/23/17 12:00 Temperature 97.3 F L 97.3 F L 97.5 F L Pulse Rate 96 H 98 H 96 H Respiratory Rate 17 18 18 Blood Pressure 146/83 H 147/81 H 120/77 Pulse Oximetry 98 99 100 Intake & Output 12/22/17 12/23/17 12/23/17 18:59 06:59 18:59 Intake Total 1340 / 1340 1150 / 1150 Output Total 1300 / 1300 900 / 900 900 / 900 Balance 40 / 40 250 / 250 -900 / -900 Weight 62.2 kg Intake: IV 980 / 980 1000 / 1000 1/2 Normal Saline Inj 1,000 ML 980 / 980 1000 / 1000 @ 75 mls/hr IV.CONT .[id number] [facility] Rx#:[id number] Oral 360 / 360 150 / 150 Output: Urine 1300 / 1300 900 / 900 Urine Amount (Catheter) 900 / 900 Indwelling Urethral Catheter 900 / 900 Other: Date of Last Bowel Movement 12/22/17 12/22/17 # Bowel Movements 1 1 Narrative: GENERAL: in no acute distress CARDIOVASCULAR: Regular rate and rhythm. RESPIRATORY: No accessory muscle use. GASTROINTESTINAL: Abdomen soft, non-tender, nondistended. MUSCULOSKELETAL: Extremities without clubbing, cyanosis, or edema. No obvious deformities. NEUROLOGICAL: More alert, calm, oriented to self. Follows, movements otherwise , moving all extremities to gravity PSYCHIATRIC: calm - Constitutional no acute distress - Routine HEENT Exam Head: Present: normocephalic - Urinary Catheter Management Indwelling Urethral Catheter Cath placed during this visit: yes, but has since been removed by the nurse Reason for continuing: Chronic Urinary Retention Insertion date: 12/19/17 Insertion time: 22:00 Removal date: 12/19/17 Removal time: 08:00 Objective Laboratory Results - last 24 hr 12/23/17 12/23/17 12/23/17 08:36 08:36 08:36 WBC 4.5 RBC 3.01 L Hgb 9.8 L Hct 29.0 L MCV 96.4 MCH 32.5 MCHC 33.8 RDW 14.2 Plt Count 296 MPV 8.6 Neut % (Auto) 67.9 Lymph % (Auto) 21.3 [place] % (Auto) 7.8 Eos % (Auto) 2.1 Baso % (Auto) 0.9 Neut # (Auto) 3.1 Lymph # (Auto) 1.0 [place] # (Auto) 0.4 Eos # (Auto) 0.1 Baso # (Auto) 0.0 WBC Differential . Differential Comment Auto diff final Sodium 141 Potassium 3.8 Chloride 108 H Carbon Dioxide 26.7 Anion Gap 6 BUN 6 L Creatinine 0.69 Estimated GFR Greater than 89 Random Glucose 89 Calcium 8.8 Iron 64 L TIBC 193 L % Saturation 33.1 Total Bilirubin 0.4 AST 73 H ALT 53 Alkaline Phosphatase 87 Ammonia 16 Total Protein 6.8 Albumin 2.5 L Review/Management - Diagnosis (1) Acute metabolic encephalopathy Code(s): G93.41 - Metabolic encephalopathy Status: Acute Current Visit: Yes (2) Acute kidney injury Code(s): N17.9 - Acute kidney failure, unspecified Status: Acute Current Visit: Yes (3) Hypertensive urgency Code(s): I16.0 - Hypertensive urgency Status: Acute Current Visit: Yes - Review/Management Plan: hypertensive and in renal failure on admission; ?wernickes encephalopathy Unknown if any history of toxic ingestion or EtOH withdrawal Urine drug screen negative. Ethanol level negative CSF negative for infection thus far slightly elevated protein nonspecific. WBC 2, normal glucose. Continue IV acyclovir until herpes PCR returned MRI brain negative for any acute lesion old infarcts HIV, RPR nonreactive Follow-up KERRY, ammonia level Recommendation Mental status improved. More calm and alert snf placement No driving
== END 2017-12-23 15:53 ==
LOC: NEPC 11:19 → MERGE 14:55 → EDBD 14:55 → NEDA 14:55 → N04 15:48
PROVIDERS: ADMIT Family Medicine; ATTEND Family Medicine

== ENCOUNTER 2018-02-09 16:34 | Inpatient (IN) ==
[2018-02-09] MEDS ORDERED: Acetaminophen 650 MG Supp RECTAL ONE ×2 (16:54→21:00)
--- NOTE | 2018-02-09 17:07 | ED ---
HPI General Chief Complaint: Trauma Stated Complaint: Trauma Transfer Time Seen by Provider: 02/09/18 16:54 Source: EMS, RN notes reviewed and old records reviewed Mode of arrival: ambulatory Limitations: altered mental status, physical limitation and other History of Present Illness HPI narrative: The patient is a 62-year-old male who presents to the emergency department as a trauma transfer from [facility]. The patient apparently was brought [facility] a jail for altered mental status to [facility] and was unable to give a history to the ER staff secondary to his mental status. Apparently the patient was catheterized and was noted to have shanelle blood within the Cespedes catheter. The patient apparently was in the emergency department for an extended time and suffered a fall while in the emergency department. The patient had an initial CT of the brain which revealed a right parietal scalp contusion and left ethmoid sinus disease but essentially unremarkable, however, had a second CT of the brain after the fall which revealed a right hemispheric subdural hematoma measuring up to 5.8 mm with no significant mass-effect or midline shift. The patient apparently was intubated using rapid sequence intubation in the emergency department. Upon arrival the patient is intubated, nonverbal, eyes closed, and only moving the left upper extremity spontaneously. No further information is obtainable from the patient. MD complaint: Reports fall Loss of Consciousness: unsure Location: Reports head Severity: severe Severity scale (1-10): 10 Context: Reports fall Treatments prior to arrival: Reports IV, oxygen and intubation Related Data Previous Rx's Medication Instructions Recorded amlodipine [Norvasc] 10 mg PO DAILY #30 tab 12/18/17 aspirin 162 mg PO DAILY #30 tab 12/18/17 modafinil 100 mg PO DAILY #30 tab 12/18/17 potassium chloride [Klor-Con 10] 10 meq PO BID #60 tab 12/18/17 tamsulosin 0.4 mg PO DAILY #30 cap 12/18/17 Allergies Allergy/AdvReac Type Severity Reaction Status Date / Time codeine Allergy Severe PASSES OUT Unverified 12/12/17 13:15 Review of Systems ROS Unobtainable ROS Unobtainable: unobtainable due to mental condition and unobtainable due to mental status PMFSH Social History Social History Substance History: Unable to Obtain Smoking Status: Unknown if ever smoked How Often Do You Have a Drink Containing Alcohol: Unable to Obtain Recent Travel in [facility] within the Last 8 Weeks: No Recent Out of Country Travel within the Last 8 Weeks: No Exam Narrative Exam Narrative: GENERAL: Eyes closed, nonverbal, intubated 62-year-old male. SKIN: Focused skin assessment warm/dry. HEAD: Laceration with sutures on the right aspect of the forehead with dried surrounding blood but no acute bleeding. EYES: Pupils equal and round. 2 mm bilateral. ENT: No nasal bleeding or discharge. Endotracheal tube and OG tube in place. NECK: Trachea midline. No JVD. CARDIOVASCULAR: Regular, tachycardic with a heart rate in 130s. RESPIRATORY: Bilateral breath sounds with endotracheal tube and vent. GASTROINTESTINAL: Abdomen soft, non-tender, nondistended. Genitourinary: Circumcised phallus. Cespedes catheter in place with gross blood. Genital wart/penile lesion on the proximal aspect of the right shaft. Back: Small abrasion over the right lower aspect of the back. Brown stool within the diaper. MUSCULOSKELETAL: Cachectic extremities. NEUROLOGICAL: Eyes closed, nonverbal, intubated. Moves left upper extremity spontaneously but does not withdrawal to pain. No clonus of the lower extremities. Babinski is downward. PSYCHIATRIC: Unable to obtain. Course Initial Documented Vital Signs Respiratory Rate 27 H 02/09/18 16:53 Pulse Oximetry 95 02/09/18 16:53 Last Documented Vital Signs Temperature 101.5 F H 02/09/18 17:23 Pulse Rate 124 H 02/09/18 18:24 Respiratory Rate 16 18 18:24 Blood Pressure 107/63 02/09/18 18:24 Pulse Oximetry 100 02/09/18 18:24 Critical Care Time Critical Care Time: Yes Total Critical Care Time: 40 Attestation: Aggregate critical care time was 40 minutes. Time to perform other separately billable procedures was not included in the critical care time. My time did not include minutes spent treating any other patients simultaneously or on activities that did not directly contribute to the patient's treatment. The services I provided to this patient were to treat and/or prevent clinically significant deterioration that could result in: Anoxia, hypoxia, herniation, aspiration, septic shock, . I provided critical care services requiring my management, as noted below: Chart data review, documentation time, medication orders and management, vital sign assessments/reviewing monitor data, ordering and reviewing lab tests, ordering and interpreting/reviewing x-rays and diagnostic studies, care of the patient and discussion of the patient with the admitting physicians. Medical Decision Making MDM Narrative Medical decision making narrative: IV was already established, labs are drawn and sent, and the patient was placed on cardiac telemetry monitoring and continuous pulse oximetry monitoring. I did the patient with the trauma surgeon , Dr. Workman, who agrees with repeating CT of the brain. Patient's paperwork , CT the cervical spine and abdomen/pelvis were negative for acute trauma. Repeat chest x-ray was obtained. The patient was noted to have a fever via rectal temperature, was administered Tylenol suppository. Lactic acid, blood cultures, cath UA, pneumonia were sent to lab. CT of the brain performed at [facility] on 02/08/2018 reveals right parietal scalp contusion, left ethmoid sinus disease are again seen, essentially negative CT. CT of the brain performed at [facility] at 1235 reveals with subdural windows a thin subdural collection along the right hemisphere is seen measuring up to 5.8 mm compatible with a thin acute subdural hematoma without mass-effect or midline shift Patient's med list from [facility] includes amlodipine, Modafinil, potassium chloride, Flomax, aspirin, magnesium hydroxide, Fleet enema, Risperdal Labs from [facility] White count 5.4, hemoglobin 11.3, hematocrit 33.8, platelet count 244 Magnesium 2.0 Sodium 140, potassium 3.4, chloride 105, CO2 21, anion gap 17, BUN 22, creatinine 0.6, glucose 69, lactic acid 1.3, calcium 8.8, total bili 0.3, AST 18 , ALT 12, alkaline phosphatase 74, ammonia 38, total protein 6.4, albumin 3.2, alcohol less than 0.01 Chest x-ray revealed tubes are in satisfactory position. Lungs appear mildly hyperexpanded and clear. CT abdomen and pelvis reveals the balloon of the Cespedes catheter is located within the posterior urethra surrounded by air and debris which may reflect infection. Bladder is markedly distended measuring 15 cm. Small mass arising from the supra pole right kidney is likely to represent a cyst. CT cervical spine reveals no evidence of acute osseous abnormality. There is cervical spondylosis with diffuse arthritic changes throughout the cervical spine causing mild narrowing of the foramina and canal at multiple levels. The patient's lactic acid was elevated at 4.1. The patient's rectal temperature was 101.5. The patient had no UA output, was on continuous irrigation, patient has SIRS criteria. Therefore, patient was treated with cefepime. Blood culture and urine with urine culture as well as influenza are pending. The patient would benefit from medical server service assistant evaluation. The patient was evaluated by Dr. Workman in the emergency department, he request transfer to the medical server service assistant care. Therefore, a call was placed to the on-call medical server service assistant. I discussed the patient with the neurosurgeon, Dr. Kilpatrick, who recommends Keppra 1000 mg intravenously now and then 500 mg intravenously twice a day. Medical Screen Exam Complete: Yes Emergency Medical Condition: Yes Differential Diagnosis Differential Diagnosis: Differential diagnosis includes subdural hematoma, altered mental status, encephalopathy, sepsis, delirium, UTI, pneumonia, aspiration, hyponatremia, elevated ammonia level. Lab Data Result diagrams: 02/09/18 17:11 02/09/18 17:11 Lab Results 02/09/18 02/09/18 02/09/18 Range/Units 17:11 17:11 17:11 WBC 11.1 H (4.0-11.0) th/mm3 RBC 3.34 L (4.50-5.90) mil/mm3 Hgb 10.5 L (13.0-17.0) gm/dL Hct 31.4 L (39.0-51.0) % MCV 94.2 (80.0-100.0) fL MCH 31.5 (27.0-34.0) pg MCHC 33.4 (32.0-36.0) % RDW 14.1 (11.6-17.2) % Plt Count 188 (150-450) th/mm3 MPV 9.0 (7.0-11.0) fL Neut % (Auto) 96.7 H (16.0-70.0) % Lymph % (Auto) 1.6 L (9.0-44.0) % Hendry % (Auto) 1.5 (0.0-8.0) % Eos % (Auto) 0.0 (0.0-4.0) % Baso % (Auto) 0.2 (0.0-2.0) % Neut # (Auto) 10.7 H (1.8-7.7) th/mm3 Lymph # (Auto) 0.2 L (1.0-4.8) th/mm3 Hendry # (Auto) 0.2 (0.0-0.9) th/mm3 Eos # (Auto) 0.0 (0.0-0.4) th/mm3 Baso # (Auto) 0.0 (0.0-0.2) th/mm3 WBC Differential . Differential Comment Auto diff final PT (9.8-11.6) sec INR Ratio APTT (23.4-31.7) sec Sodium 146 H (136-145) meq/L Potassium 3.6 (3.5-5.1) meq/L Chloride 115 H (98-107) meq/L Carbon Dioxide 18.1 L (21.0-32.0) meq/L Anion Gap 13 (5-15) meq/L BUN 25 H (7-18) mg/dL Creatinine 1.57 H (0.60-1.30) mg/dL Estimated GFR 45 L (>89) mL/min POC Glucose (68-110) mg/dl Random Glucose 88 (74-106) mg/dL Lactic Acid 4.1 H* (0.4-2.0) mmol/L Calcium 7.8 L (8.5-10.1) mg/dL Total Bilirubin 0.5 (0.2-1.0) mg/dL AST 44 H (15-37) U/L ALT 17 (12-78) U/L Alkaline Phosphatase 81 (45-117) U/L Ammonia (11-32) mcmol/L Total Protein 6.2 L (6.4-8.2) g/dL Albumin 2.7 L (3.4-5.0) g/dL 02/09/18 02/09/18 02/09/18 Range/Units 17:11 17:11 17:11 WBC (4.0-11.0) th/mm3 RBC (4.50-5.90) mil/mm3 Hgb (13.0-17.0) gm/dL Hct (39.0-51.0) % MCV (80.0-100.0) fL MCH (27.0-34.0) pg MCHC (32.0-36.0) % RDW (11.6-17.2) % Plt Count (150-450) th/mm3 MPV (7.0-11.0) fL Neut % (Auto) (16.0-70.0) % Lymph % (Auto) (9.0-44.0) % Hendry % (Auto) (0.0-8.0) % Eos % (Auto) (0.0-4.0) % Baso % (Auto) (0.0-2.0) % Neut # (Auto) (1.8-7.7) th/mm3 Lymph # (Auto) (1.0-4.8) th/mm3 Hendry # (Auto) (0.0-0.9) th/mm3 Eos # (Auto) (0.0-0.4) th/mm3 Baso # (Auto) (0.0-0.2) th/mm3 WBC Differential Differential Comment PT 11.0 (9.8-11.6) sec INR 1.1 Ratio APTT 23.4 (23.4-31.7) sec Sodium (136-145) meq/L Potassium (3.5-5.1) meq/L Chloride (98-107) meq/L Carbon Dioxide (21.0-32.0) meq/L Anion Gap (5-15) meq/L BUN (7-18) mg/dL Creatinine (0.60-1.30) mg/dL Estimated GFR (>89) mL/min POC Glucose 68 (68-110) mg/dl Random Glucose (74-106) mg/dL Lactic Acid (0.4-2.0) mmol/L Calcium (8.5-10.1) mg/dL Total Bilirubin (0.2-1.0) mg/dL AST (15-37) U/L ALT (12-78) U/L Alkaline Phosphatase (45-117) U/L Ammonia 31 (11-32) mcmol/L Total Protein (6.4-8.2) g/dL Albumin (3.4-5.0) g/dL Imaging Data Radiologist's impression: Chest X-Ray 02/09/18 16:54 CONCLUSION: 1. Interval intubation and placement of nasogastric tube. 2. No acute cardiopulmonary disease. Head CT 02/09/18 16:54 CONCLUSION: 1. Acute subdural hematoma involving the right temporoparietal region measuring 5 mm in width. No significant midline shift is noted. 2. Subgaleal hematoma is noted along the right parietal skull. . Discharge Plan Discharge Disposition Patient Disposition: ED Admit(ED Internal Use Only) Discharge Condition Condition: Critical Discharge Order Discharge Orders: ED Use Only Admit Order (Routine); Ordered 02/09/18 Ordered By: Cruz Henao Discharge Details Diagnosis: Acute subdural hematoma, Altered mental status, SIRS (systemic inflammatory response syndrome) Physicians Team ED Provider: Cruz Henao Primary Care Provider: UNKNOWN, Attending Provider: Donavon Pittman Status ED Status: Admitted Patient
[2018-02-09 17:29] LABS: Hematocrit 31.4 % (39.0-51.0); Hemoglobin 10.5 gm/dL (13.0-17.0); Lymph % (Auto) 1.6 % (9.0-44.0); Mean Corpuscular HGB Conc 33.4 % (32.0-36.0); Mean Corpuscular Hemoglobin 31.5 pg (27.0-34.0); Mean Corpuscular Volume 94.2 fL (80.0-100.0); Mono % (Auto) 1.5 % (0.0-8.0); Neut % (Auto) 96.7 % (16.0-70.0); Platelet Count 188 th/mm3 (150-450); Red Blood Count 3.34 mil/mm3 (4.50-5.90); Red Cell Distribution Width 14.1 % (11.6-17.2); White Blood Count 11.1 th/mm3 (4.0-11.0)
[2018-02-09 17:30] LABS: Baso % (Auto) 0.2 % (0.0-2.0); Lymph # (Auto) 0.2 th/mm3 (1.0-4.8); Mono # (Auto) 0.2 th/mm3 (0.0-0.9); Neut # (Auto) 10.7 th/mm3 (1.8-7.7)
[2018-02-09 17:35] LABS: Activated Partial Thrombo Time 23.4 sec (23.4-31.7); INR 1.1 Ratio
--- NOTE | 2018-02-09 17:47 | CT ---
EXAM DATE: 02/09/2018 5:41 PM EST AGE/SEX: 62 years / Male INDICATIONS: Altered mental status. Non responsive. Transfer from [facility]. CLINICAL DATA: This is the patient's initial encounter. Patient reports that signs and symptoms have been present for 1 day and indicates a pain score of Nonresponsive. MEDICAL/SURGICAL HISTORY: Non-responsive. Non-responsive. RADIATION DOSE: 56.35 CTDI (mGy) [place] [facility] [place] [facility] [place]. . [place] 2018-02-09 TECHNIQUE: CT of the head without contrast. Using automated exposure control and adjustment of the mA and/or kV according to patient size, radiation dose was kept as low as reasonably achievable to ob tain optimal diagnostic quality images. DICOM format image data is available electronically for revi ew and comparison. FINDINGS: Cerebrum: There is an acute subdural hematoma involving the right temporoparietal region measuring 5 mm in width. No significant midline shift is noted. No acute infarct, mass effect or acute intra-axi al bleed is noted. Posterior Fossa: The cerebellum and brainstem are intact. The 4th ventricle is midline. The cerebe llopontine angle is unremarkable. Extracranial: The visualized portion of the orbits is intact. Subgaleal hematoma is noted along the right parietal skull. Skull: The calvaria is intact. No evidence of skull fracture. CONCLUSION: 1. Acute subdural hematoma involving the right temporoparietal region measuring 5 mm in width. No si gnificant midline shift is noted. 2. Subgaleal hematoma is noted along the right parietal skull. . Electronically signed by: Warren Robertson MD Board Certified Radiologist 02/09/2018 5:46 PM EST
[2018-02-09 17:59] LABS: Alanine Aminotransferase 17 U/L (12-78); Albumin 2.7 g/dL (3.4-5.0); Anion Gap 13 meq/L (5-15); Aspartate Aminotransferase 44 U/L (15-37); Blood Urea Nitrogen 25 mg/dL (7-18); Calcium 7.8 mg/dL (8.5-10.1); Carbon Dioxide 18.1 meq/L (21.0-32.0); Chloride 115 meq/L (98-107); Glomerular Filtration Rate 45 mL/min (>89); Glucose,Random 88 mg/dL (74-106); Potassium 3.6 meq/L (3.5-5.1); Sodium 146 meq/L (136-145)
[2018-02-09 18:01] LABS: Alkaline Phosphatase 81 U/L (45-117); Total Protein 6.2 g/dL (6.4-8.2)
[2018-02-09] MEDS ORDERED: Sod Chloride 0.9% Inj 1,000 ML IV.SIG SCH (18:15)
--- NOTE | 2018-02-09 18:28 | XR ---
EXAM DATE: 02/09/2018 6:22 PM EST AGE/SEX: 62 years / Male INDICATIONS: Endotracheal tube placement. Altered mental status and acute subdural hematoma. CLINICAL DATA: This is the patient's initial encounter. Patient reports that signs and symptoms have been present for 1 day and indicates a pain score of Nonresponsive. MEDICAL/SURGICAL HISTORY: Non-responsive. Non-responsive. COMPARISON: [facility] – [place]ST 1V SINGLE AP, 12/02/2017. . FINDINGS: A single AP view of the chest demonstrates the lungs to be symmetrically aerated without evidence of mass, infiltrate or effusion. The cardiomediastinal contours are unremarkable. Osseous structures a re intact. Patient has been intubated with the endotracheal tube tip approximately 1 to 2 cm above th e zina. A nasogastric tube is been placed and is seen coursing through the esophagus and into the s tomach. CONCLUSION: 1. Interval intubation and placement of nasogastric tube. 2. No acute cardiopulmonary disease. Electronically signed by: Hammad Ramsey MD Board Certified Radiologist 02/09/2018 6:26 PM EST
[2018-02-09] MEDS ORDERED: levETIRAcetam 1000mg/100mL Inj 100 ML IV.SIG ONE (18:53)
[2018-02-09] MEDS ORDERED: Vancomycin Consult Pharmacy OTHER PRN (19:26)
[2018-02-09] MEDS ORDERED: Sod Chloride 0.9% Inj 1,000 ML IV.SIG ONE ×2 (19:26→20:33)
[2018-02-09] MEDS ORDERED: Sodium Phosphate Inj 30 MMOL in Sodium Chlor 0.9% Inj 250 ML IV.SIG PRN (19:31)
[2018-02-09] MEDS ORDERED: Magnesium Sulfate Inj 2 GM in Sodium Chlor 0.9% Inj 96 ML IV.SIG PRN (19:31)
[2018-02-09] MEDS ORDERED: Potassium Chlor 20 mEq Premix 20 MEQ/100 ML PIGGYBACK IV.SIG PRN (19:31)
[2018-02-09] MEDS ORDERED: Potassium Phosphate Inj 30 MMOL in Sodium Chlor 0.9% Inj 250 ML IV.SIG PRN (19:31)
[2018-02-09] MEDS ORDERED: Magnesium Sulfate Inj 4 GM in Sodium Chlor 0.9% Inj 92 ML IV.SIG PRN (19:31)
[2018-02-09] MEDS ORDERED: Potassium Chloride 25 MEQ Effervescent Tablet PO PRN (19:31)
[2018-02-09] MEDS ORDERED: Bisacodyl 10 MG Supp RECTAL PRN (19:31)
[2018-02-09] MEDS ORDERED: Magnesium Oxide 400 MG Tablet PO PRN (19:31)
[2018-02-09] MEDS ORDERED: Potassium Phosphate 500 MG Soluble Tablet PO PRN ×2 (19:31)
[2018-02-09] MEDS ORDERED: Potassium Chlor 40 mEq Premix 40 MEQ/100 ML PIGGYBACK IV.SIG PRN ×2 (19:31)
[2018-02-09 19:39] LABS: ABG Base Excess -9.2 mmol/L (-2-2); ABG PCO2 21 mmHg (38-42); ABG PO2 257 mmHg (61-120)
--- NOTE | 2018-02-09 19:39 | P.HPCC ---
History of Present Illness Service: [facility] Primary Care Physician: UNKNOWN Chief Complaint: Encephalopathy History of Present Illness: 62yM [facility] for [facility] subdural hematoma. As per the patient's records, he is from a nursing facility and presented on 02/08 for altered mental status, subsequently developed fever, tachycardia, and leukocytosis, had a Cespedes catheter placed with balloon likely inflated in posterior urethra and developed hematuria. On 02/09, the patient attempted to get out of bed and fell on the floor, hitting his head; it is unclear in the notes whether he lost consciousness but a CTH showed a 5 mm right subdural hematoma without shift or mass effect. He had a laceration to his right upper forehead which was repaired prior to transfer. He had worsening encephalopathy and was intubated prior to transfer. The patient is currently encephalopathic and intubated, therefore unable to provide any meaningful contribution to HPI. History was therefore obtained from the ED physician and records from [facility]. - Diagnosis (1) Encephalopathy acute (2) Acute subdural hematoma (3) Acidosis, lactic (4) Severe sepsis (5) Hematuria (6) Laceration of forehead Inpatient Certification: I certify that the inpatient services were ordered in accordance with Medicare regulations governing the order. This includes certification that hospital inpatient services are reasonable and necessary and in the case of services not specified as inpatient-only under 42 CFR 419.22(n), that they are appropriately provided as inpatient services in accordance to with the 2-midnight benchmark under 43 CFR 412.3(e) Estimated Total Length of Stay (Days): 7 Plans for Post Hospital Care: Not yet determined Review of Systems unobtainable due to endotracheal tube PMFSH - History History Provided By: Medical Record - Social History I have reviewed the patient's Social History: Yes - Tobacco History Smoking Status: Unknown if ever smoked - Alcohol History How Often Do You Have a Drink Containing Alcohol: Unable to Obtain - Substance Use History Substance History: Unable to Obtain - Travel History Recent Travel in the [place] Within the Last 8 Weeks: No Recent Travel Out of the Country Within the Last 8 Weeks: No - Immunization History Tetanus Immunization: Unable to Assess Medications and Allergies Active Medications: Active Medications Acetaminophen (Tylenol) 650 mg PO Q6H PRN PRN Reason: PAIN 1-10 AND/OR FEVER >101F Al Hydroxide/Mg Hydroxide (Milk Of Magnesia Liq) 30 ml PO Q12H PRN PRN Reason: Mild Constipation Albuterol (Duoneb Neb (Prn)) 1 ampul NEB Q2HR NEB PRN PRN Reason: WHEEZING Albuterol (Duoneb Neb (Prn)) 1 ampul NEB Q4HR NEB ALEXX Bisacodyl (Dulcolax Supp) 10 mg RECTAL DAILY PRN PRN Reason: SEVERE CONSITIPATION Chlorhexidine Gluconate (Chlorhexidine 2% Cloth) 3 pack TOPICAL DAILY@0400 ALEXX Stop: 02/15/18 03:59 Chlorhexidine Gluconate (Chlorhexidine 2% Cloth) 3 pack TOPICAL DAILY@0400 PRN PRN Reason: Extra cloth needed Stop: 02/15/18 03:59 Chlorhexidine Gluconate (Peridex 0.12% Oral Kit) 15 ml OROPHARYNG BID@0800, 2000 ALEXX Famotidine (Pepcid) 20 mg PO BID ALEXX Famotidine (Pepcid) 20 mg PO BID ALEXX Famotidine (Pepcid Pf Inj) 20 mg IV.PUSH Q12HR ALEXX Famotidine (Pepcid Pf Inj) 20 mg IV.PUSH Q12HR ALEXX Levetiracetam 500 mg/ Sodium (Chloride) 105 mls @ 400 mls/hr IV.SIG Q12H ALEXX Vancomycin HCl 2,100 mg/ (Sodium Chloride) 542 mls @ 250 mls/hr IV.SIG ONCE ONE Stop: 02/09/18 22:10 Piperacillin/Tazobactam/Dextrose (Zosyn 3.375 Gm Premix) 3.375 gm in 50 mls @ 100 mls/hr IV.SIG Q6H ALEXX Magnesium Sulfate 4 gm/ Sodium (Chloride) 100 mls @ 50 mls/hr IV.SIG UNSCH PRN PRN Reason: For Magnesium 0.9 - 1.1 mg/dL Sodium Chloride (Ns Inj) 1,000 mls @ 125 mls/hr IV.CONT .Q8H ALEXX Potassium Chloride (Kcl 40 Meq Premix Inj) 40 meq in 100 mls @ 25 mls/hr IV.SIG Q2H PRN PRN Reason: For Potassium 2.8 - 3.2 mEq/L Potassium Chloride (Kcl 20 Meq Premix Inj) 20 meq in 100 mls @ 50 mls/hr IV.SIG Q2H PRN PRN Reason: For Potassium 3.3 - 3.5 mEq/L Potassium Chloride (Kcl 40 Meq Premix Inj) 40 meq in 100 mls @ 25 mls/hr IV.SIG UNSCH PRN PRN Reason: For Potassium 3.3 - 3.5 mEq/L Potassium Phosphate 30 mmol/ (Sodium Chloride) 260 mls @ 42 mls/hr IV.SIG UNSCH PRN PRN Reason: SEE LABEL COMMENTS Sodium Phosphate 30 mmol/ (Sodium Chloride) 260 mls @ 42 mls/hr IV.SIG UNSCH PRN PRN Reason: For Phosphorus < 2.5 mg/dL Magnesium Sulfate 2 gm/ Sodium (Chloride) 100 mls @ 50 mls/hr IV.SIG UNSCH PRN PRN Reason: For Magnesium 1.2 - 1.6 mg/dL Potassium Chloride (Kcl 20 Meq Premix Inj) 20 meq in 100 mls @ 50 mls/hr IV.SIG Q2H PRN PRN Reason: For Potassium 2.8 - 3.2 mEq/L Fentanyl (Fentanyl 10 Mcg/Ml Premix Drip) 2,500 mcg in 250 mls @ 5 mls/hr IV.SIG TITRATE PRN; Protocol PRN Reason: Per Protocol Propofol (Diprivan 1000 Mg/100 Ml Inj) 1,000 mg in 100 mls @ 2.517 mls/hr IV.CONT TITRATE PRN; Protocol PRN Reason: Per Protocol Lactulose (Lactulose Liq) 30 ml PO DAILY PRN PRN Reason: SEVERE CONSITIPATION Magnesium Oxide (Mag-Ox) 800 mg PO UNSCH PRN PRN Reason: For Magnesium 1.2 - 1.6 mg/dL Miscellaneous Medication () 1 each OROPHARYNG 0000,0400,1200,1600 ALEXX Ondansetron HCl (Zofran Inj) 4 mg IV.PUSH Q6H PRN PRN Reason: NAUSEA OR VOMITING Pharmacy Profile Note (Vancomycin Consult Pharmacy) 1 each OTHER UNSCH PRN PRN Reason: Pharmacy to dose Potassium Bicarb/Potassium Chloride (K-Lyte Cl Eff) 50 meq PO UNSCH PRN PRN Reason: For Potassium 3.3 - 3.5 mEq/L Potassium Phosphate (K-Phos Original) 2,000 mg PO Q4H PRN PRN Reason: Phosphorus Less Than 2.5 mg/dL Potassium Phosphate (K-Phos Original) 2,000 mg PO UNSCH PRN PRN Reason: SEE LABEL COMMENTS Senna/Docusate Sodium (Esperanza-Colace) 1 tab PO BID ALEXX Sennosides (Senokot) 17.2 mg PO Q12H PRN PRN Reason: Moderate Constipation Sodium Chloride (Ns Flush) 2 ml IV.FLUSH BID ALEXX Sodium Chloride (Ns Flush) 2 ml IV.FLUSH PRN PRN PRN Reason: FLUSH AFTER USING IV ACCESS Tamsulosin HCl (Flomax) 0.4 mg PO DAILY ALEXX Allergies Allergy/AdvReac Type Severity Reaction Status Date / Time codeine Allergy Severe PASSES OUT Unverified 12/12/17 13:15 Results - Labs CBC & Chem 7: 02/09/18 17:11 02/09/18 17:11 Labs: Short CBC 02/09/18 Range/Units 17:11 WBC 11.1 H (4.0-11.0) th/mm3 Hgb 10.5 L (13.0-17.0) gm/dL Hct 31.4 L (39.0-51.0) % Plt Count 188 (150-450) th/mm3 BMP 02/09/18 17:11 Sodium 146 H Potassium 3.6 Chloride 115 H Carbon Dioxide 18.1 L BUN 25 H Creatinine 1.57 H Calcium 7.8 L Liver Function 02/09/18 Range/Units 17:11 Total Bilirubin 0.5 (0.2-1.0) mg/dL AST 44 H (15-37) U/L ALT 17 (12-78) U/L Alkaline Phosphatase 81 (45-117) U/L Albumin 2.7 L (3.4-5.0) g/dL - Imaging Impressions Chest X-Ray 02/09/18 16:54 CONCLUSION: 1. Interval intubation and placement of nasogastric tube. 2. No acute cardiopulmonary disease. Head CT 02/09/18 16:54 CONCLUSION: 1. Acute subdural hematoma involving the right temporoparietal region measuring 5 mm in width. No significant midline shift is noted. 2. Subgaleal hematoma is noted along the right parietal skull. . Exam Vital signs: Vital Signs 02/09/18 16:53 02/09/18 17:23 02/09/18 18:10 Temperature 101.5 F H Pulse Rate 127 H 128 H Respiratory Rate 27 H 16 18 Blood Pressure 137/87 91/69 L Pulse Oximetry 95 100 97 02/09/18 18:24 Temperature Pulse Rate 124 H Respiratory Rate 16 Blood Pressure 107/63 Pulse Oximetry 100 Intake & Output 02/09/18 02/09/18 02/10/18 06:59 18:59 06:59 Intake Total 100 / 100 Balance 100 / 100 Weight 83.915 kg Intake: IV 100 / 100 Maxipime Inj 2,000 MG In NS Inj 100 / 100 100 ML @ 200 mls/hr IV.SIG ONCE ONE Rx#:[id number] Narrative: GEN: Elderly male, intubated and sedated HEENT: 3 cm linear laceration to right upper forehead near hairline with 5 simple interrupted sutures present; no epistaxis or septal hematoma, no intraoral trauma, no raccoon eyes or Arboleda's sign, pupils 3 mm and briskly reactive bilaterally NECK: Trachea midline CARDIO: Tachy, regular PULM: Mechanical breath sounds present and equal bilaterally ABD/GI: Soft, non-distended EXT/MSK: No apparent extremity trauma SKIN: Warm and well-perfused NEURO: GCS 9T ([id number]), RASS -2, withdraws all extremities and spontaneously moves bilateral upper extremities PSYCH: Unable to assess Septic Shock Reassessment Septic shock perfusion: reassessment completed Caprini VTE Risk Assessment Caprini VTE Risk Assessment: Moderate/High Risk (score >= 2) VTE Pharmacological Exception Reason: Hemorrhage Caprini Risk Assessment Model: Point Value = 1 Point Value = 2 Point Value = 3 Point Value = 5 Age 41-60 Minor surgery BMI > 25 kg/m2 Swollen legs Varicose veins or History of unexplained or recurrent spontaneous Oral contraceptives or hormone replacement Sepsis (< 1 month) Serious lung disease, including pneumonia (< 1 month) Abnormal pulmonary function Acute myocardial infarction Congestive heart failure (< 1 month) History of inflammatory bowel disease Medical patient at bed rest Age 61-74 Arthroscopic surgery Major open surgery (> 45 min) Laparoscopic surgery (> 45 min) Malignancy Confined to bed (> 72 hours) Immobilizing plaster cast Central venous access Age >= 75 History of VTE Family history of VTE Factor V Leiden Prothrombin [id number] Lupus anticoagulant Anticardiolipin antibodies Elevated serum homocysteine Heparin-induced thrombocytopenia Other congenital or acquired thrombophilia Stroke (< 1 month) Elective arthroplasty Hip, pelvis, or leg fracture Acute spinal cord injury (< 1 month) Prophylaxis Regimen: Total Risk Factor Score Risk Level Prophylaxis Regimen 0-1 Low Early ambulation 2 Moderate Order ONE of the following: *Sequential Compression Device (SCD) *Heparin 5000 units SQ BID 3-4 Higher Order ONE of the following medications: *Heparin 5000 units SQ TID *Enoxaparin/Lovenox 40 mg SQ daily (WT < 150 kg, CrCl > 30 mL/min) *Enoxaparin/Lovenox 30 mg SQ daily (WT < 150 kg, CrCl > 10-29 mL/min) *Enoxaparin/Lovenox 30 mg SQ BID (WT < 150 kg, CrCl > 30 mL/min) AND/OR *Sequential Compression Device (SCD) 5 or more Highest Order ONE of the following medications: *Heparin 5000 units SQ TID (Preferred with Epidurals) *Enoxaparin/Lovenox 40 mg SQ daily (WT < 150 kg, CrCl > 30 mL/min) *Enoxaparin/Lovenox 30 mg SQ daily (WT < 150 kg, CrCl > 10-29 mL/min) *Enoxaparin/Lovenox 30 mg SQ BID (WT < 150 kg, CrCl > 30 mL/min) AND *Sequential Compression Device (SCD) Assessment and Plan - Problem List (1) Encephalopathy acute Code(s): G93.40 - Encephalopathy, unspecified Status: Acute (2) Acute subdural hematoma Code(s): S06.5X9A - Traumatic subdural hemorrhage with loss of consciousness of unspecified duration, initial encounter Status: Acute (3) Acidosis, lactic Code(s): E87.2 - Acidosis Status: Acute (4) Severe sepsis Code(s): A41.9 - Sepsis, unspecified organism; R65.20 - Severe sepsis without septic shock Status: Acute (5) Hematuria Code(s): R31.9 - Hematuria, unspecified Status: Acute (6) Laceration of forehead Code(s): S01.81XA - Laceration without foreign body of other part of head, initial encounter Status: Acute - Assessment and Plan Plan: 62yM presenting with acute encephalopathy, severe sepsis, and acute traumatic SDH NEURO: Acute traumatic SDH Acute encephalopathy History of Wernicke's encephalopathy * CTH repeated on arrival to our ED, unchanged as compared to [facility] records, will repeat CTH in AM * CT cervical spine negative for acute injuries, moving all extremities, does not require cervical collar * Frequent neuro checks * Avoid all anticoagulants/ antiplatelets * Keppra loading dose given in ED, continue 500 mg BID dosing * Neurosurgery recommendations appreciated, no interventions currently planned * Case discussed with Dr. Sauceda- the patient's primary diagnosis is severe sepsis and encephalopathy, and we agreed to admit the patient to the [facility] form [facility] service with trauma consult * Avoid secondary insults (hypoxia, hypotension, aggressive fever control) * Serum sodium currently 146, continue saline for maintenance fluids * Thiamine supplementation * Hold home modafinil CARDIO: History of hypertension * Hold home doses of amlodipine and ASA in the setting of ICH and severe sepsis PULM: Acute hypoxic respiratory failure requiring mechanical ventilation * Current ABG- 7.48/21.3/257/14.2/-9.2, rate dropped to 14, repeat ABG in 2 hrs * Titrate vent to keep pCO2 35-45 * Titrate down FiO2 as tolerated * CXR shows ETT in appropriate position * Nebs PRN * Pulmonary toilet * Vent bundle F/E/N: * NPO, maintenance fluids * ICU electrolyte protocol : Hematuria * Patient currently has bright red urine draining from Cespedes, no clots * CT report from [facility] shows that the Cespedes was initially placed and inflated in posterior urethra; will consult urology as patient may have urethral injury * Cespedes was repositioned on arrival to our ED * If urine output drops or clots are noted in bag, will start continuous bladder irrigation ID: Severe sepsis, suspected urosepsis * Aggressive IV hydration * Lynne-cultures * MRSA swab * Broad-spectrum antibiotics (vanco, zosyn) * Trend lactic acid MSK: Right forehead laceration * Remove sutures in 1 week (on or about 02/16/18) * Update tetanus (unclear if this was given at [facility]) PROPHY: * SCDs only, heparin contraindicated in the setting of SDH * PPI Overall: This patient is critically ill with acute SDH and severe sepsis. He requires ICU level of care. Counseling/ Coordination of Care: This patient is critically ill with impairment of one or more vital organ systems with a high probability of imminent or life-threatening deterioration. High-complexity medical decision making was required to support vital organ function and/ or prevent deterioration in the patient's condition. Total critical care time spent is 62 minutes giving full attention to this patient. This includes examining the patient, gathering history from someone other than the patient (i.e. chart review), discussing the patient's care with other providers, managing the patient's ventilator settings, ordering and interpreting radiologic studies, ordering and interpreting laboratory values, managing the patient's sedation requirements, re-evaluation at frequent intervals, and documentation. Amount of time is separate from teaching, counseling the patient and/or family, and exclusive of procedures. Code Status: Presumed to be full code as there is no documentation from [facility] indicating otherwise Discussed Condition With: Dr. Pittman (trauma), Dr. Henao (ED physician)-- he also spoke with Dr. Kilpatrick (neurosurgery)
[2018-02-09] MEDS ORDERED: Sod Chloride 0.9% Inj 1,000 ML IV.CONT SCH (19:45)
[2018-02-09] MEDS ORDERED: Vancomycin Inj 2,100 MG in Sodium Chlor 0.9% Inj 500 ML IV.SIG ONE (20:00)
[2018-02-09] MEDS: Piperacil/Tazo 3.375 GM Premix 3.375 GM/50 ML PIGGYBACK IV.SIG SCH (20:09)
[2018-02-09] MEDS ORDERED: Diphtheria/Tetanus/Pertussis Vaccine Inj 0.5 ML Syringe IM ONE (20:27)
[2018-02-09] MEDS ORDERED: Famotidine PF Inj 20 MG/2 ML Vial IV.PUSH SCH (21:00)
[2018-02-09] MEDS ORDERED: Famotidine 20 MG Tablet PO SCH (21:00)
--- NOTE | 2018-02-09 21:23 | CT ---
EXAM DATE: 02/09/2018 9:15 PM EST AGE/SEX: 62 years / Male INDICATIONS: Found unresponsive. CLINICAL DATA: This is the patient's initial encounter. Patient reports that signs and symptoms have been present for 1 day and indicates a pain score of Nonresponsive. MEDICAL/SURGICAL HISTORY: Non-responsive. Non-responsive. RADIATION DOSE: 18.65 CTDI (mGy) COMPARISON: [facility] [place] LUMBAR [place] W/O CONTRAST, 12/02/2017. . TECHNIQUE: Contiguous axial images were obtained using helical multirow detector technique. The vol umetric data was post-processed with multiplanar reconstruction in oblique axial, sagittal, and coron al planes. Using automated exposure control and adjustment of the mA and/or kV according to patient s ize, radiation dose was kept as low as reasonably achievable to obtain optimal diagnostic quality isac ges. DICOM format image data is available electronically for review and comparison. FINDINGS: Vertebrae: Normal vertebral body height. Discs: Mild degenerative disc changes are present at the C5-6 level. Alignment: Normal. No subluxation. The axial images demonstrate that the vertebral bodies and posterior elements are intact. The prevert ebral soft tissues are within normal limits. An endotracheal tube and nasogastric tube are present. T he skull base is intact. There are mild degenerative joint changes in uncovertebral joints.. CONCLUSION: 1. Negative trauma CT. Electronically signed by: Hammad Ramsey MD Board Certified Radiologist 02/09/2018 9:22 PM EST
[2018-02-09] MEDS: Propofol 1000 mg/100 ml Inj 1,000 MG/100 ML BOTTLE IV.CONT PRN (22:00)
[2018-02-09 22:33] LABS: ABG Base Excess -10.3 mmol/L (-2-2); ABG PCO2 20 mmHg (38-42); ABG PO2 252 mmHg (61-120)
[2018-02-09] MEDS: Chlorhexidine 0.12% Oral Kit 15 ML UDC OROPHARYNG SCH (22:49)
[2018-02-09] MEDS: Senna/Docusate Sodium 8.6/50 MG Tablet PO SCH (22:49)
[2018-02-09] MEDS: Thiamine Inj 100 MG in Sodium Chlor 0.9% Inj 100 ML IV.SIG SCH (22:49)
[2018-02-09] MEDS: Famotidine 20 MG Tablet PO SCH (22:49)
--- NOTE | 2018-02-09 23:13 | P.PCN ---
Date of procedure: 02/09/18 Pre-op diagnosis: hematuria Post-op diagnosis: same Procedure: Continuous bladder catheter insertion The patient arrived as a transfer from [facility] with a 3 way catheter already present but it was unable to be flushed and we could not perform continuous bladder irrigation through it. I attempted to flush/ aspirate from the catheter without success. I removed the initial catheter. The patient was prepped with betadine and draped in a sterile manner. A new 22F 3 way catheter was placed without difficulty and the balloon was inflated with 10 cc of saline. It is easily flushing with continuous bladder irrigation and large clots are noted in the Cespedes bag. The pre-existing catheter was noted to have large tenacious clot throughout most of the length of the tube. The patient tolerated the procedure well with no immediate complications. Surgeon: Afshan Medina Condition: critical Disposition: ICU
[2018-02-09] MEDS: Famotidine PF Inj 20 MG/2 ML Vial IV.PUSH SCH (23:23)
[2018-02-10] MEDS: Oral Hygiene Kit OROPHARYNG SCH ×4 (00:40→16:12)
[2018-02-10 01:17] LABS: ABG Base Excess -10.6 mmol/L (-2-2); ABG PCO2 21 mmHg (38-42); ABG PO2 209 mmHg (61-120)
[2018-02-10] MEDS: fentaNYL 10 mcg/mL Premix Drip 2,500 MCG/250 ML BAG IV.SIG PRN (01:44)
[2018-02-10] MEDS: Sodium Bicarbonate 8.4% Inj 150 MEQ in Dextrose 5% in Water Inj 850 ML IV.CONT SCH ×4 (02:39→11:41)
[2018-02-10] MEDS ORDERED: Sod Chloride 0.9% Inj 1,000 ML IV.SIG ONE (02:50)
[2018-02-10] MEDS ORDERED: Albumin Human 25% Inj 100 ML IV.SIG ONE (02:51)
[2018-02-10] MEDS: Piperacil/Tazo 3.375 GM Premix 3.375 GM/50 ML PIGGYBACK IV.SIG SCH ×4 (03:37→20:15)
[2018-02-10] MEDS: Chlorhexidine Gluconate 2% 1 Pack (2 Cloths) TOPICAL SCH (03:37)
[2018-02-10 03:46] LABS: INR 1.3 Ratio; Prothrombin Time 12.9 sec (9.8-11.6)
[2018-02-10 03:47] LABS: Baso % (Auto) 0.3 % (0.0-2.0); Eos % (Auto) 0.1 % (0.0-4.0); Hematocrit 24.4 % (39.0-51.0); Hemoglobin 7.9 gm/dL (13.0-17.0); Lymph # (Auto) 0.4 th/mm3 (1.0-4.8); Lymph % (Auto) 2.9 % (9.0-44.0); Mean Corpuscular HGB Conc 32.5 % (32.0-36.0); Mean Corpuscular Hemoglobin 31.2 pg (27.0-34.0); Mean Platelet Volume 9.5 fL (7.0-11.0); Mono # (Auto) 0.7 th/mm3 (0.0-0.9); Neut # (Auto) 12.3 th/mm3 (1.8-7.7); Neut % (Auto) 91.7 % (16.0-70.0); Platelet Count 146 th/mm3 (150-450); Red Blood Count 2.55 mil/mm3 (4.50-5.90); Red Cell Distribution Width 14.1 % (11.6-17.2); White Blood Count 13.4 th/mm3 (4.0-11.0)
[2018-02-10] MEDS: Propofol 1000 mg/100 ml Inj 1,000 MG/100 ML BOTTLE IV.CONT PRN (03:54)
[2018-02-10] MEDS ORDERED: Chlorhexidine Gluconate 2% 1 Pack (2 Cloths) TOPICAL PRN (04:00)
[2018-02-10 04:07] LABS: Albumin 2.1 g/dL (3.4-5.0); Calcium 7.3 mg/dL (8.5-10.1); Carbon Dioxide 15.2 meq/L (21.0-32.0); Magnesium 1.4 mg/dL (1.5-2.5); Phosphorus 3.5 mg/dL (2.5-4.9); Potassium 3.6 meq/L (3.5-5.1); Total Protein 5.1 g/dL (6.4-8.2)
--- NOTE | 2018-02-10 04:46 | CT ---
EXAM DATE: 02/10/2018 4:39 AM EST AGE/SEX: 62 years / Male INDICATIONS: Follow up hemorrhage. CLINICAL DATA: This is the patient's subsequent encounter. Patient reports that signs and symptoms h ave been present for 1 day and indicates a pain score of Nonresponsive. MEDICAL/SURGICAL HISTORY: Non-responsive. Non-responsive. RADIATION DOSE: 38.24 CTDI (mGy) COMPARISON: [facility] – [place], [place] HEAD W/O CONTRAST, 02/09/2018. . TECHNIQUE: CT of the head without contrast. Using automated exposure control and adjustment of the mA and/or kV according to patient size, radiation dose was kept as low as reasonably achievable to ob tain optimal diagnostic quality images. DICOM format image data is available electronically for revi ew and comparison. FINDINGS: Cerebrum: Stable size to the acute subdural hematoma in the right temporal parietal region measuring up to 5 mm. No new hemorrhages seen. The ventricles are normal in size. There is good turner-white mat ter differentiation. Posterior Fossa: The cerebellum and brainstem are intact. The 4th ventricle is midline. The cerebe llopontine angle is unremarkable. Extracranial: The visualized portion of the orbits is intact. Skull: Stable right parietal scalp hematoma. The calvaria is intact. No evidence of skull fracture. CONCLUSION: 1. Stable right temporal parietal subdural hematoma. 2. No new findings. . Electronically signed by: Carlin Keyes MD Board Certified Radiologist 02/10/2018 4:45 AM EST
[2018-02-10 05:42] LABS: ABG Base Excess -7.9 mmol/L (-2-2); ABG PCO2 26 mmHg (38-42); ABG PO2 156 mmHg (61-120)
[2018-02-10] MEDS: Chlorhexidine 0.12% Oral Kit 15 ML UDC OROPHARYNG SCH ×2 (07:57→20:15)
[2018-02-10] MEDS: Senna/Docusate Sodium 8.6/50 MG Tablet PO SCH ×2 (07:59→20:15)
[2018-02-10] MEDS: Famotidine 20 MG Tablet PO SCH ×2 (07:59→20:15)
[2018-02-10] MEDS: Famotidine PF Inj 20 MG/2 ML Vial IV.PUSH SCH ×2 (07:59→20:15)
--- NOTE | 2018-02-10 08:22 | P.CONNS ---
History of Present Illness Service: Neurosurgery Consult date: 02/10/18 Requesting Physician: Afshan Medina (Network Project Manager) Reason for Consult: Right acute subdural hemorrhage Primary Care Provider: UNKNOWN Chief Complaint: Encephalopathy History of Present Illness: 62-year-old male who presents to the emergency department as a trauma transfer from [facility]. The patient apparently was brought from a snf for altered mental status to [facility] and was unable to give a history to the ER staff secondary to his mental status. Apparently the patient was catheterized and was noted to have shanelle blood within the Cespedes catheter. The patient apparently was in the emergency department for an extended time and suffered a fall while in the emergency department. The patient had an initial CT of the brain which revealed a right parietal scalp contusion and left ethmoid sinus disease but essentially unremarkable, however, had a second CT of the brain after the fall which revealed a right hemispheric small subdural hematoma with no significant mass- effect or midline shift. The patient apparently was intubated using rapid sequence intubation in the emergency department. Upon arrival the patient is intubated, nonverbal, eyes closed, and withdraws all extremities. No further information is obtainable from the patient and there are no family members available. Follow-up CT scan of the head this morning reveals stable small 3-4 mm right-sided subdural hemorrhage. Review of Systems unobtainable due to endotracheal tube PMFSH - History History Provided By: Medical Record - Medical / Surgical Hx Neg / Unobtainable Medical Problems Denied: Unable to Obtain Surgical History: Unable to Obtain - Tobacco History Smoking Status: Unknown if ever smoked - Alcohol History How Often Do You Have a Drink Containing Alcohol: Unable to Obtain - Substance Use History Substance History: Unable to Obtain - Travel History Recent Travel in the [place] Within the Last 8 Weeks: No Recent Travel Out of the Country Within the Last 8 Weeks: No - Immunization History Tetanus Immunization: Unable to Assess Medications and Allergies Active Medications: Active Medications Acetaminophen (Tylenol) 650 mg PO Q6H PRN PRN Reason: PAIN 1-10 AND/OR FEVER >101F Al Hydroxide/Mg Hydroxide (Milk Of Magnesia Liq) 30 ml PO Q12H PRN PRN Reason: Mild Constipation Albuterol (Duoneb Neb (Prn)) 1 ampul NEB Q2HR NEB PRN PRN Reason: WHEEZING Albuterol (Duoneb Neb (Joy)) 1 ampul NEB Q4HR NEB [facility] Last Admin: 02/10/18 07:44 Dose: 1 ampul Bisacodyl (Dulcolax Supp) 10 mg RECTAL DAILY PRN PRN Reason: SEVERE CONSITIPATION Chlorhexidine Gluconate (Chlorhexidine 2% Cloth) 3 pack TOPICAL DAILY@0400 JOY Stop: 02/15/18 03:59 Last Admin: 02/10/18 03:37 Dose: 3 pack Chlorhexidine Gluconate (Chlorhexidine 2% Cloth) 3 pack TOPICAL DAILY@0400 PRN PRN Reason: Extra cloth needed Stop: 02/15/18 03:59 Chlorhexidine Gluconate (Peridex 0.12% Oral Kit) 15 ml OROPHARYNG BID@0800, 2000 [facility] Last Admin: 02/10/18 07:57 Dose: 15 ml Famotidine (Pepcid) 20 mg PO BID [facility] Last Admin: 02/10/18 07:59 Dose: Not Given Famotidine (Pepcid Pf Inj) 20 mg IV.PUSH Q12HR [facility] Last Admin: 02/10/18 07:59 Dose: 20 mg Levetiracetam 500 mg/ Sodium (Chloride) 105 mls @ 400 mls/hr IV.SIG Q12H [facility] Last Admin: 02/10/18 07:57 Dose: 400 mls/hr Piperacillin/Tazobactam/Dextrose (Zosyn 3.375 Gm Premix) 3.375 gm in 50 mls @ 100 mls/hr IV.SIG Q6H [facility] Last Admin: 02/10/18 07:57 Dose: 100 mls/hr Magnesium Sulfate 4 gm/ Sodium (Chloride) 100 mls @ 50 mls/hr IV.SIG UNSCH PRN PRN Reason: For Magnesium 0.9 - 1.1 mg/dL Potassium Chloride (Kcl 40 Meq Premix Inj) 40 meq in 100 mls @ 25 mls/hr IV.SIG Q2H PRN PRN Reason: For Potassium 2.8 - 3.2 mEq/L Potassium Chloride (Kcl 20 Meq Premix Inj) 20 meq in 100 mls @ 50 mls/hr IV.SIG Q2H PRN PRN Reason: For Potassium 3.3 - 3.5 mEq/L Potassium Chloride (Kcl 40 Meq Premix Inj) 40 meq in 100 mls @ 25 mls/hr IV.SIG UNSCH PRN PRN Reason: For Potassium 3.3 - 3.5 mEq/L Potassium Phosphate 30 mmol/ (Sodium Chloride) 260 mls @ 42 mls/hr IV.SIG UNSCH PRN PRN Reason: SEE LABEL COMMENTS Sodium Phosphate 30 mmol/ (Sodium Chloride) 260 mls @ 42 mls/hr IV.SIG UNSCH PRN PRN Reason: For Phosphorus < 2.5 mg/dL Magnesium Sulfate 2 gm/ Sodium (Chloride) 100 mls @ 50 mls/hr IV.SIG UNSCH PRN PRN Reason: For Magnesium 1.2 - 1.6 mg/dL Potassium Chloride (Kcl 20 Meq Premix Inj) 20 meq in 100 mls @ 50 mls/hr IV.SIG Q2H PRN PRN Reason: For Potassium 2.8 - 3.2 mEq/L Fentanyl (Fentanyl 10 Mcg/Ml Premix Drip) 2,500 mcg in 250 mls @ 5 mls/hr IV.SIG TITRATE PRN; Protocol PRN Reason: Per Protocol Last Admin: 02/10/18 01:44 Dose: 50 mcg/hr, 5 mls/hr Propofol (Diprivan 1000 Mg/100 Ml Inj) 1,000 mg in 100 mls @ 2.517 mls/hr IV.CONT TITRATE PRN; Protocol PRN Reason: Per Protocol Last Titration: 02/10/18 05:19 Dose: 5 mcg/kg/min, 2.52 mls/hr Thiamine HCl 100 mg/ Sodium (Chloride) 101 mls @ 100 mls/hr IV.SIG Q24H [facility] Last Infusion: 02/10/18 00:55 Dose: Infused Sodium Bicarbonate 150 meq/ (Dextrose) 1,000 mls @ 125 mls/hr IV.CONT .Q8H [facility] Last Admin: 02/10/18 02:39 Dose: 125 mls/hr Lactulose (Lactulose Liq) 30 ml PO DAILY PRN PRN Reason: SEVERE CONSITIPATION Lorazepam (Ativan Inj) 1 mg IV.PUSH Q2H PRN PRN Reason: VENTILATOR CONTROL Magnesium Oxide (Mag-Ox) 800 mg PO UNSCH PRN PRN Reason: For Magnesium 1.2 - 1.6 mg/dL Miscellaneous Medication () 1 each OROPHARYNG 0000,0400,1200,1600 [facility] Last Admin: 02/10/18 05:17 Dose: 1 each Ondansetron HCl (Zofran Inj) 4 mg IV.PUSH Q6H PRN PRN Reason: NAUSEA OR VOMITING Pharmacy Profile Note (Vancomycin Consult Pharmacy) 1 each OTHER UNSCH PRN PRN Reason: Pharmacy to dose Potassium Bicarb/Potassium Chloride (K-Lyte Cl Eff) 50 meq PO UNSCH PRN PRN Reason: For Potassium 3.3 - 3.5 mEq/L Potassium Phosphate (K-Phos Original) 2,000 mg PO Q4H PRN PRN Reason: Phosphorus Less Than 2.5 mg/dL Potassium Phosphate (K-Phos Original) 2,000 mg PO UNSCH PRN PRN Reason: SEE LABEL COMMENTS Senna/Docusate Sodium (Esperanza-Colace) 1 tab PO BID [facility] Last Admin: 02/10/18 07:59 Dose: 1 tab Sennosides (Senokot) 17.2 mg PO Q12H PRN PRN Reason: Moderate Constipation Sodium Chloride (Ns Flush) 2 ml IV.FLUSH BID [facility] Last Admin: 02/10/18 07:59 Dose: 2 ml Sodium Chloride (Ns Flush) 2 ml IV.FLUSH PRN PRN PRN Reason: FLUSH AFTER USING IV ACCESS Tamsulosin HCl (Flomax) 0.4 mg PO DAILY [facility] Last Admin: 02/10/18 07:59 Dose: 0.4 mg Allergies Allergy/AdvReac Type Severity Reaction Status Date / Time codeine Allergy Severe PASSES OUT Unverified 12/12/17 13:15 Exam Vital signs: Vital Signs 02/09/18 16:53 02/09/18 17:23 02/09/18 18:10 Temperature 101.5 F H Pulse Rate 127 H 128 H Respiratory Rate 27 H 16 18 Blood Pressure 137/87 91/69 L Pulse Oximetry 95 100 97 02/09/18 18:24 02/09/18 19:52 02/09/18 20:41 Temperature 103.4 F H Pulse Rate 124 H 128 H Respiratory Rate 16 16 Blood Pressure 107/63 120/83 Pulse Oximetry 100 99 02/09/18 21:23 02/09/18 21:25 02/09/18 21:32 Temperature Pulse Rate 127 H 127 H 125 H Respiratory Rate 28 H 29 H 26 H Blood Pressure 190/134 H 119/69 Pulse Oximetry 100 100 02/09/18 21:39 02/09/18 21:40 02/09/18 21:45 Temperature Pulse Rate 124 H 124 H 126 H Respiratory Rate 14 28 H 27 H Blood Pressure 139/80 137/75 127/65 Pulse Oximetry 100 100 94 L 02/09/18 21:49 02/09/18 22:00 02/09/18 22:04 Temperature Pulse Rate 124 H 123 H 122 H Respiratory Rate 26 H 27 H 26 H Blood Pressure 118/72 109/61 Pulse Oximetry 89 L 100 100 02/09/18 22:12 02/09/18 22:23 02/09/18 22:34 Temperature Pulse Rate 120 H 119 H Respiratory Rate 25 H 25 H 26 H Blood Pressure 101/68 89/58 L Pulse Oximetry 100 100 100 02/09/18 22:49 02/09/18 23:00 02/09/18 23:04 Temperature Pulse Rate 121 H 119 H 119 H Respiratory Rate 28 H 26 H 26 H Blood Pressure 120/72 110/71 Pulse Oximetry 100 100 100 02/09/18 23:18 02/09/18 23:19 02/09/18 23:34 Temperature Pulse Rate 120 H 121 H 117 H Respiratory Rate 28 H 27 H 26 H Blood Pressure 115/84 118/70 126/67 Pulse Oximetry 98 100 100 02/09/18 23:49 02/10/18 00:00 02/10/18 00:04 Temperature 98.9 F Pulse Rate 115 H 114 H 114 H Respiratory Rate 26 H 25 H 26 H Blood Pressure 124/64 104/68 Pulse Oximetry 100 100 100 02/10/18 00:05 02/10/18 00:14 02/10/18 00:17 Temperature Pulse Rate 114 H 113 H Respiratory Rate 25 H 25 H Blood Pressure Pulse Oximetry 100 02/10/18 00:19 02/10/18 00:34 02/10/18 00:49 Temperature Pulse Rate 111 H 111 H 110 H Respiratory Rate 24 24 23 Blood Pressure 105/71 113/68 104/64 Pulse Oximetry 100 100 100 02/10/18 01:00 02/10/18 01:10 02/10/18 01:19 Temperature Pulse Rate 109 H 107 H 107 H Respiratory Rate 25 H 23 24 Blood Pressure 98/62 L 97/62 L Pulse Oximetry 100 100 100 02/10/18 01:34 02/10/18 01:49 02/10/18 02:00 Temperature Pulse Rate 106 H 104 H 103 H Respiratory Rate 24 24 23 Blood Pressure 100/66 101/66 Pulse Oximetry 100 97 97 02/10/18 02:04 02/10/18 02:19 02/10/18 02:34 Temperature Pulse Rate 103 H 102 H 99 H Respiratory Rate 23 22 20 Blood Pressure 93/57 L 95/59 L 95/61 L Pulse Oximetry 98 100 100 02/10/18 02:49 02/10/18 03:00 02/10/18 03:12 Temperature Pulse Rate 99 H 97 H Respiratory Rate 18 18 Blood Pressure 90/62 L Pulse Oximetry 100 98 99 02/10/18 03:15 02/10/18 03:39 02/10/18 04:00 Temperature 98.3 F Pulse Rate 99 H 100 H 97 H Respiratory Rate 18 16 12 Blood Pressure 123/73 Pulse Oximetry 100 97 02/10/18 04:16 02/10/18 04:46 02/10/18 05:00 Temperature Pulse Rate 100 H 97 H 97 H Respiratory Rate 16 0 L Blood Pressure 89/59 L 110/66 Pulse Oximetry 99 100 02/10/18 05:16 02/10/18 05:46 02/10/18 06:00 Temperature Pulse Rate 94 H 92 H 92 H Respiratory Rate 16 Blood Pressure 98/67 L 85/59 L Pulse Oximetry 100 100 100 02/10/18 06:16 02/10/18 06:46 02/10/18 07:00 Temperature Pulse Rate 94 H 90 92 H Respiratory Rate 0 L 10 L 10 L Blood Pressure 94/63 L 91/60 L Pulse Oximetry 100 100 100 02/10/18 07:16 02/10/18 07:44 02/10/18 07:46 Temperature Pulse Rate 93 H 91 H 92 H Respiratory Rate 10 L 15 0 L Blood Pressure 109/68 88/59 L Pulse Oximetry 100 100 100 Intake & Output 02/09/18 02/10/18 02/10/18 18:59 06:59 18:59 Intake Total 5643 / 5643 Output Total 50 / 50 Balance 5593 / 5593 Weight 83.915 kg 68.3 kg Intake: IV 5643 / 5643 Diprivan 1000 mg/100 ml Inj 1, 100 / 100 000 mg In 100 ml @ 5 MCG/KG/MIN 2.517 mls/hr IV.CONT TITRATE PRN Rx#:[id number] NS Inj 1,000 ML @ 125 mls/hr IV 500 / 500 .CONT .Q8H JOY Rx#:[id number] Flexbumin 25% Inj 100 ML @ 60 100 / 100 mls/hr IV.SIG ONCE ONE Rx#: [id number] Maxipime Inj 2,000 MG In NS Inj 100 / 100 100 ML @ 200 mls/hr IV.SIG ONCE ONE Rx#:[id number] Zosyn 3.375 GM Premix 3.375 gm 100 / 100 In 50 ml @ 100 mls/hr IV.SIG Q6H [facility] Rx#:[id number] NS Inj 1,000 ML @ Wide Open IV. 4000 / 4000 SIG BOLUS ONE Rx#:[id number] Thiamine Inj 100 MG In NS Inj 101 / 101 100 ML @ 100 mls/hr IV.SIG Q24H [facility] Rx#:[id number] Vancomycin Inj 2,100 MG In NS 542 / 542 Inj 500 ML @ 250 mls/hr IV.SIG ONCE ONE Rx#:[id number] Keppra 1000 mg/100 mL Premix 100 / 100 100 ML @ 400 mls/hr IV.SIG ONCE ONE Rx#:[id number] Output: Gastric Drainage 50 / 50 Pre-Hospital Oral Orogastric 50 / 50 Tube Other: Bladder Irrigation Fluid - Amount Instilled 3-way Urethral 3,000 Bladder Irrigation Fluid - Amount Drained 3-way Urethral 4,350 Date of Last Bowel Movement 02/09/18 Weight On Admission 65.4 kg - Constitutional average body habitus, obtunded - Routine HEENT Exam Head: Present: laceration, hematoma (Right frontal laceration which has been sutured) Eye: Present: EOMI ENT: Present: oropharynx clear (Oral endotracheal tube in place), external ear normal - Routine Neck Exam Present: supple, full ROM - Routine Respiratory Exam Present: patient mechanically ventilated, CTA bilaterally - Routine Cardiovascular Exam Present: RRR, S1, S2 - Routine Abdominal Exam Present: soft, normoactive bowel sounds - Routine Extremities Exam Present: edema - Routine Skin Exam Present: intact - Routine Neurological Exam He is intubated and sedated, attempts to open his eyes slightly to stimulation and pupils are pinpoint, he localizes withdraws upper and lower extremities to painful stimulation but not follow commands - Detailed Neurological Exam: Coma Scale Eye Opening: To sound Verbal Response: None (Intubated) Motor Response: Localizing Rani Coma Scale Total: 9 Results - Laboratory Findings CBC and BMP: 02/10/18 02:52 02/10/18 02:52 Abnormal lab findings: Abnormal Labs 02/09/18 02/09/18 02/09/18 17:11 17:11 17:11 WBC 11.1 H RBC 3.34 L Hgb 10.5 L Hct 31.4 L Plt Count Neut % (Auto) 96.7 H Lymph % (Auto) 1.6 L Neut # (Auto) 10.7 H Lymph # (Auto) 0.2 L PT ABG pH ABG pCO2 ABG pO2 ABG HCO3 ABG O2 Content ABG Base Excess Hemoglobin Sodium 146 H Chloride 115 H Carbon Dioxide 18.1 L BUN 25 H Creatinine 1.57 H Estimated GFR 45 L Random Glucose Lactic Acid 4.1 H* Calcium 7.8 L Magnesium AST 44 H Total Protein 6.2 L Albumin 2.7 L 02/09/18 02/09/18 02/09/18 19:33 19:47 22:24 WBC RBC Hgb Hct Plt Count Neut % (Auto) Lymph % (Auto) Neut # (Auto) Lymph # (Auto) PT ABG pH 7.44 H 7.43 H ABG pCO2 21 L* 20 L* ABG pO2 257 H 252 H ABG HCO3 14 L* 13 L* ABG O2 Content ABG Base Excess -9.2 L -10.3 L Hemoglobin 9.0 L 8.3 L Sodium Chloride Carbon Dioxide BUN Creatinine Estimated GFR Random Glucose Lactic Acid 5.2 H* Calcium Magnesium AST Total Protein Albumin 02/10/18 02/10/18 02/10/18 01:04 02:52 02:52 WBC 13.4 H RBC 2.55 L Hgb 7.9 L D Hct 24.4 L Plt Count 146 L Neut % (Auto) 91.7 H Lymph % (Auto) 2.9 L Neut # (Auto) 12.3 H Lymph # (Auto) 0.4 L PT 12.9 H ABG pH ABG pCO2 21 L* ABG pO2 209 H ABG HCO3 13 L* ABG O2 Content ABG Base Excess -10.6 L Hemoglobin 8.6 L Sodium Chloride Carbon Dioxide BUN Creatinine Estimated GFR Random Glucose Lactic Acid Calcium Magnesium AST Total Protein Albumin 02/10/18 02/10/18 02/10/18 02:52 03:45 05:33 WBC RBC Hgb Hct Plt Count Neut % (Auto) Lymph % (Auto) Neut # (Auto) Lymph # (Auto) PT ABG pH ABG pCO2 26 L ABG pO2 156 H ABG HCO3 16 L* ABG O2 Content 10.4 L ABG Base Excess -7.9 L Hemoglobin 7.3 L* Sodium 147 H Chloride 120 H Carbon Dioxide 15.2 L BUN 26 H Creatinine Estimated GFR 59 L Random Glucose 70 L Lactic Acid 5.1 H* Calcium 7.3 L* Magnesium 1.4 L AST 71 H Total Protein 5.1 L D Albumin 2.1 L D 02/10/18 Unknown WBC RBC Hgb Hct Plt Count Neut % (Auto) Lymph % (Auto) Neut # (Auto) Lymph # (Auto) PT ABG pH ABG pCO2 ABG pO2 ABG HCO3 ABG O2 Content ABG Base Excess Hemoglobin Sodium Chloride Carbon Dioxide BUN Creatinine Estimated GFR Random Glucose Lactic Acid 6.8 H* Calcium Magnesium AST Total Protein Albumin - Diagnostic Findings Additional findings: Impressions Chest X-Ray 02/09/18 16:54 CONCLUSION: 1. Interval intubation and placement of nasogastric tube. 2. No acute cardiopulmonary disease. Head CT 02/09/18 16:54 CONCLUSION: 1. Acute subdural hematoma involving the right temporoparietal region measuring 5 mm in width. No significant midline shift is noted. 2. Subgaleal hematoma is noted along the right parietal skull. . Cervical Spine CT 02/09/18 20:32 CONCLUSION: 1. Negative trauma CT. Head CT 02/10/18 06:00 CONCLUSION: 1. Stable right temporal parietal subdural hematoma. 2. No new findings. . Assessment and Plan - Assessment (1) Acute subdural hematoma Code(s): S06.5X9A - Traumatic subdural hemorrhage with loss of consciousness of unspecified duration, initial encounter Status: Acute (2) Acute metabolic encephalopathy Code(s): G93.41 - Metabolic encephalopathy Status: Acute - Plan 62-year-old gentleman with a small about 4 mm right subdural hemorrhage which is stable on follow-up CT scan without mass-effect or midline shift. He is also encephalopathic and currently intubated and sedated. He does not require any neurosurgical intervention at this point. Recommend weaning sedation and ventilator status as his medical condition allows.
[2018-02-10] MEDS ORDERED: amLODIPine 10 MG Tablet PO SCH (09:00)
--- NOTE | 2018-02-10 10:02 | P.CONURO ---
History of Present Illness Service: Urology Consult date: 02/10/18 Requesting Physician: Afshan Medina Reason for Consult: Hematuria Primary Care Provider: UNKNOWN Chief Complaint: Encephalopathy History of Present Illness: 62y. o. M transferred from [facility] for acute subdural hematoma. As per the patient's records, he is from a nursing facility and presented on for altered mental status, subsequently developed fever, tachycardia, and leukocytosis, had a Montemayor catheter placed with balloon likely inflated in posterior urethra and developed hematuria. On 02/09, the patient attempted to get out of bed and fell on the floor, hitting his head; it is unclear in the notes whether he lost consciousness but a CTH showed a 5 mm right subdural hematoma without shift or mass effect. He had a laceration to his right upper forehead which was repaired prior to transfer. He had worsening encephalopathy and was intubated prior to transfer. The patient is currently encephalopathic and intubated, therefore unable to provide any meaningful contribution to HPI. History was therefore obtained from the ED physician and records from [facility]. Here at [place] his montemayor got clogged and was replaced with another 22Fr montemayor cath [address]. Urology consulted His H/H decreased. Has mild leukocytosis. Cr is normal. Montemayor is in place, CBI is running at 1-2drops / sec. Urine is clear in tubing. + tachy Review of Systems All other systems reviewed negative except as stated in HPI PMFSH - History History Provided By: Medical Record - Medical / Surgical Hx Neg / Unobtainable Medical Problems Denied: Unable to Obtain - Tobacco History Smoking Status: Unknown if ever smoked - Alcohol History How Often Do You Have a Drink Containing Alcohol: Unable to Obtain - Substance Use History Substance History: Unable to Obtain - Travel History Recent Travel in the [place] Within the Last 8 Weeks: No Recent Travel Out of the Country Within the Last 8 Weeks: No - Immunization History Tetanus Immunization: Unable to Assess Medications and Allergies Active Medications: Active Medications Acetaminophen (Tylenol) 650 mg PO Q6H PRN PRN Reason: PAIN 1-10 AND/OR FEVER >101F Al Hydroxide/Mg Hydroxide (Milk Of Magnesia Liq) 30 ml PO Q12H PRN PRN Reason: Mild Constipation Albuterol (Duoneb Neb (Prn)) 1 ampul NEB Q2HR NEB PRN PRN Reason: WHEEZING Albuterol (Duoneb Neb ([facility])) 1 ampul NEB Q4HR NEB [facility] Last Admin: 02/10/18 07:44 Dose: 1 ampul Bisacodyl (Dulcolax Supp) 10 mg RECTAL DAILY PRN PRN Reason: SEVERE CONSITIPATION Chlorhexidine Gluconate (Chlorhexidine 2% Cloth) 3 pack TOPICAL DAILY@0400 ALEXX Stop: 02/15/18 03:59 Last Admin: 02/10/18 03:37 Dose: 3 pack Chlorhexidine Gluconate (Chlorhexidine 2% Cloth) 3 pack TOPICAL DAILY@0400 PRN PRN Reason: Extra cloth needed Stop: 02/15/18 03:59 Chlorhexidine Gluconate (Peridex 0.12% Oral Kit) 15 ml OROPHARYNG BID@0800, 2000 [facility] Last Admin: 02/10/18 07:57 Dose: 15 ml Famotidine (Pepcid) 20 mg PO BID [facility] Last Admin: 02/10/18 07:59 Dose: Not Given Famotidine (Pepcid Pf Inj) 20 mg IV.PUSH Q12HR [facility] Last Admin: 02/10/18 07:59 Dose: 20 mg Levetiracetam 500 mg/ Sodium (Chloride) 105 mls @ 400 mls/hr IV.SIG Q12H [facility] Last Infusion: 02/10/18 08:13 Dose: Infused Piperacillin/Tazobactam/Dextrose (Zosyn 3.375 Gm Premix) 3.375 gm in 50 mls @ 100 mls/hr IV.SIG Q6H [facility] Last Infusion: 02/10/18 08:27 Dose: Infused Magnesium Sulfate 4 gm/ Sodium (Chloride) 100 mls @ 50 mls/hr IV.SIG UNSCH PRN PRN Reason: For Magnesium 0.9 - 1.1 mg/dL Potassium Chloride (Kcl 40 Meq Premix Inj) 40 meq in 100 mls @ 25 mls/hr IV.SIG Q2H PRN PRN Reason: For Potassium 2.8 - 3.2 mEq/L Potassium Chloride (Kcl 20 Meq Premix Inj) 20 meq in 100 mls @ 50 mls/hr IV.SIG Q2H PRN PRN Reason: For Potassium 3.3 - 3.5 mEq/L Potassium Chloride (Kcl 40 Meq Premix Inj) 40 meq in 100 mls @ 25 mls/hr IV.SIG UNSCH PRN PRN Reason: For Potassium 3.3 - 3.5 mEq/L Potassium Phosphate 30 mmol/ (Sodium Chloride) 260 mls @ 42 mls/hr IV.SIG UNSCH PRN PRN Reason: SEE LABEL COMMENTS Sodium Phosphate 30 mmol/ (Sodium Chloride) 260 mls @ 42 mls/hr IV.SIG UNSCH PRN PRN Reason: For Phosphorus < 2.5 mg/dL Magnesium Sulfate 2 gm/ Sodium (Chloride) 100 mls @ 50 mls/hr IV.SIG UNSCH PRN PRN Reason: For Magnesium 1.2 - 1.6 mg/dL Last Admin: 02/10/18 09:53 Dose: 50 mls/hr Potassium Chloride (Kcl 20 Meq Premix Inj) 20 meq in 100 mls @ 50 mls/hr IV.SIG Q2H PRN PRN Reason: For Potassium 2.8 - 3.2 mEq/L Fentanyl (Fentanyl 10 Mcg/Ml Premix Drip) 2,500 mcg in 250 mls @ 5 mls/hr IV.SIG TITRATE PRN; Protocol PRN Reason: Per Protocol Last Admin: 02/10/18 01:44 Dose: 50 mcg/hr, 5 mls/hr Propofol (Diprivan 1000 Mg/100 Ml Inj) 1,000 mg in 100 mls @ 2.517 mls/hr IV.CONT TITRATE PRN; Protocol PRN Reason: Per Protocol Last Titration: 02/10/18 05:19 Dose: 5 mcg/kg/min, 2.52 mls/hr Thiamine HCl 100 mg/ Sodium (Chloride) 101 mls @ 100 mls/hr IV.SIG Q24H ALEXX Last Infusion: 02/10/18 00:55 Dose: Infused Sodium Bicarbonate 150 meq/ (Dextrose) 1,000 mls @ 125 mls/hr IV.CONT .Q8H ALEXX Last Admin: 02/10/18 02:39 Dose: 125 mls/hr Vancomycin HCl 1,250 mg/ (Sodium Chloride) 262.5 mls @ 250 mls/hr IV.SIG Q24H ALEXX Lactulose (Lactulose Liq) 30 ml PO DAILY PRN PRN Reason: SEVERE CONSITIPATION Lorazepam (Ativan Inj) 1 mg IV.PUSH Q2H PRN PRN Reason: VENTILATOR CONTROL Magnesium Oxide (Mag-Ox) 800 mg PO UNSCH PRN PRN Reason: For Magnesium 1.2 - 1.6 mg/dL Miscellaneous Information ([facility] Ordered Lab Info) 0 each OTHER ONCE ONE Stop: 02/12/18 22:46 Miscellaneous Medication () 1 each OROPHARYNG 0000,0400,1200,1600 [facility] Last Admin: 02/10/18 05:17 Dose: 1 each Ondansetron HCl (Zofran Inj) 4 mg IV.PUSH Q6H PRN PRN Reason: NAUSEA OR VOMITING Pharmacy Profile Note (Vancomycin Consult Pharmacy) 1 each OTHER UNSCH PRN PRN Reason: Pharmacy to dose Potassium Bicarb/Potassium Chloride (K-Lyte Cl Eff) 50 meq PO UNSCH PRN PRN Reason: For Potassium 3.3 - 3.5 mEq/L Potassium Phosphate (K-Phos Original) 2,000 mg PO Q4H PRN PRN Reason: Phosphorus Less Than 2.5 mg/dL Potassium Phosphate (K-Phos Original) 2,000 mg PO UNSCH PRN PRN Reason: SEE LABEL COMMENTS Senna/Docusate Sodium ([place]-Colace) 1 tab PO BID [facility] Last Admin: 02/10/18 07:59 Dose: 1 tab Sennosides (Senokot) 17.2 mg PO Q12H PRN PRN Reason: Moderate Constipation Sodium Chloride (Ns Flush) 2 ml IV.FLUSH BID [facility] Last Admin: 02/10/18 07:59 Dose: 2 ml Sodium Chloride (Ns Flush) 2 ml IV.FLUSH PRN PRN PRN Reason: FLUSH AFTER USING IV ACCESS Tamsulosin HCl (Flomax) 0.4 mg PO DAILY [facility] Last Admin: 02/10/18 07:59 Dose: 0.4 mg Allergies Allergy/AdvReac Type Severity Reaction Status Date / Time codeine Allergy Severe PASSES OUT Unverified 12/12/17 13:15 Physical Exam Vital Signs - 24 hr 02/09/18 16:53 02/09/18 17:23 02/09/18 18:10 Temperature 101.5 F H Pulse Rate 127 H 128 H Respiratory Rate 27 H 16 18 Blood Pressure 137/87 91/69 L Pulse Oximetry 95 100 97 02/09/18 18:24 02/09/18 19:52 02/09/18 20:41 Temperature 103.4 F H Pulse Rate 124 H 128 H Respiratory Rate 16 16 Blood Pressure 107/63 120/83 Pulse Oximetry 100 99 02/09/18 21:23 02/09/18 21:25 02/09/18 21:32 Temperature Pulse Rate 127 H 127 H 125 H Respiratory Rate 28 H 29 H 26 H Blood Pressure 190/134 H 119/69 Pulse Oximetry 100 100 02/09/18 21:39 02/09/18 21:40 02/09/18 21:45 Temperature Pulse Rate 124 H 124 H 126 H Respiratory Rate 14 28 H 27 H Blood Pressure 139/80 137/75 127/65 Pulse Oximetry 100 100 94 L 02/09/18 21:49 02/09/18 22:00 02/09/18 22:04 Temperature Pulse Rate 124 H 123 H 122 H Respiratory Rate 26 H 27 H 26 H Blood Pressure 118/72 109/61 Pulse Oximetry 89 L 100 100 02/09/18 22:12 02/09/18 22:23 02/09/18 22:34 Temperature Pulse Rate 120 H 119 H Respiratory Rate 25 H 25 H 26 H Blood Pressure 101/68 89/58 L Pulse Oximetry 100 100 100 02/09/18 22:49 02/09/18 23:00 02/09/18 23:04 Temperature Pulse Rate 121 H 119 H 119 H Respiratory Rate 28 H 26 H 26 H Blood Pressure 120/72 110/71 Pulse Oximetry 100 100 100 02/09/18 23:18 02/09/18 23:19 02/09/18 23:34 Temperature Pulse Rate 120 H 121 H 117 H Respiratory Rate 28 H 27 H 26 H Blood Pressure 115/84 118/70 126/67 Pulse Oximetry 98 100 100 02/09/18 23:49 02/10/18 00:00 02/10/18 00:04 Temperature 98.9 F Pulse Rate 115 H 114 H 114 H Respiratory Rate 26 H 25 H 26 H Blood Pressure 124/64 104/68 Pulse Oximetry 100 100 100 02/10/18 00:05 02/10/18 00:14 02/10/18 00:17 Temperature Pulse Rate 114 H 113 H Respiratory Rate 25 H 25 H Blood Pressure Pulse Oximetry 100 02/10/18 00:19 02/10/18 00:34 02/10/18 00:49 Temperature Pulse Rate 111 H 111 H 110 H Respiratory Rate 24 24 23 Blood Pressure 105/71 113/68 104/64 Pulse Oximetry 100 100 100 02/10/18 01:00 02/10/18 01:10 02/10/18 01:19 Temperature Pulse Rate 109 H 107 H 107 H Respiratory Rate 25 H 23 24 Blood Pressure 98/62 L 97/62 L Pulse Oximetry 100 100 100 02/10/18 01:34 02/10/18 01:49 02/10/18 02:00 Temperature Pulse Rate 106 H 104 H 103 H Respiratory Rate 24 24 23 Blood Pressure 100/66 101/66 Pulse Oximetry 100 97 97 02/10/18 02:04 02/10/18 02:19 02/10/18 02:34 Temperature Pulse Rate 103 H 102 H 99 H Respiratory Rate 23 22 20 Blood Pressure 93/57 L 95/59 L 95/61 L Pulse Oximetry 98 100 100 02/10/18 02:49 02/10/18 03:00 02/10/18 03:12 Temperature Pulse Rate 99 H 97 H Respiratory Rate 18 18 Blood Pressure 90/62 L Pulse Oximetry 100 98 99 02/10/18 03:15 02/10/18 03:39 02/10/18 04:00 Temperature 98.3 F Pulse Rate 99 H 100 H 97 H Respiratory Rate 18 16 12 Blood Pressure 123/73 Pulse Oximetry 100 97 02/10/18 04:16 02/10/18 04:46 02/10/18 05:00 Temperature Pulse Rate 100 H 97 H 97 H Respiratory Rate 16 0 L Blood Pressure 89/59 L 110/66 Pulse Oximetry 99 100 02/10/18 05:16 02/10/18 05:46 02/10/18 06:00 Temperature Pulse Rate 94 H 92 H 92 H Respiratory Rate 16 Blood Pressure 98/67 L 85/59 L Pulse Oximetry 100 100 100 02/10/18 06:16 02/10/18 06:46 02/10/18 07:00 Temperature Pulse Rate 94 H 90 92 H Respiratory Rate 0 L 10 L 10 L Blood Pressure 94/63 L 91/60 L Pulse Oximetry 100 100 100 02/10/18 07:16 02/10/18 07:44 02/10/18 07:46 Temperature Pulse Rate 93 H 91 H 92 H Respiratory Rate 10 L 15 0 L Blood Pressure 109/68 88/59 L Pulse Oximetry 100 100 100 02/10/18 08:00 02/10/18 08:16 Temperature Pulse Rate 93 H 95 H Respiratory Rate 10 L 11 L Blood Pressure 90/52 L Pulse Oximetry 100 100 Physical Exam: Intubated Tachycardic clear lungs Abd soft NT Montemayor is in place, no hematuria on CBI Laboratory Results - last 24 hr 02/09/18 02/09/18 02/09/18 17:11 17:11 17:11 WBC 11.1 H RBC 3.34 L Hgb 10.5 L Hct 31.4 L MCV 94.2 MCH 31.5 MCHC 33.4 RDW 14.1 Plt Count 188 MPV 9.0 Neut % (Auto) 96.7 H Lymph % (Auto) 1.6 L [place] % (Auto) 1.5 Eos % (Auto) 0.0 Baso % (Auto) 0.2 Neut # (Auto) 10.7 H Lymph # (Auto) 0.2 L [place] # (Auto) 0.2 Eos # (Auto) 0.0 Baso # (Auto) 0.0 WBC Differential . Differential Comment Auto diff final PT INR APTT Puncture Site Patient Temperature O2 Saturation ABG pH ABG pCO2 ABG pO2 ABG HCO3 ABG O2 Content ABG Base Excess ABG Methemoglobin Richie Test Hemoglobin Carboxyhemoglobin O2 Delivery Device Vent Setting Inspired O2 Critical Value Sodium 146 H Potassium 3.6 Chloride 115 H Carbon Dioxide 18.1 L Anion Gap 13 BUN 25 H Creatinine 1.57 H Estimated GFR 45 L POC Glucose Random Glucose 88 Lactic Acid 4.1 H* Calcium 7.8 L Calcium Adj for Albumin Phosphorus Magnesium Total Bilirubin 0.5 AST 44 H ALT 17 Alkaline Phosphatase 81 Ammonia Total Protein 6.2 L Albumin 2.7 L Nasal Screen MRSA (PCR) Blood Type Blood Type Recheck Antibody Screen 02/09/18 02/09/18 02/09/18 17:11 17:11 17:11 WBC RBC Hgb Hct MCV MCH MCHC RDW Plt Count MPV Neut % (Auto) Lymph % (Auto) [place] % (Auto) Eos % (Auto) Baso % (Auto) Neut # (Auto) Lymph # (Auto) [place] # (Auto) Eos # (Auto) Baso # (Auto) WBC Differential Differential Comment PT 11.0 INR 1.1 APTT 23.4 Puncture Site Patient Temperature O2 Saturation ABG pH ABG pCO2 ABG pO2 ABG HCO3 ABG O2 Content ABG Base Excess ABG Methemoglobin Richie Test Hemoglobin Carboxyhemoglobin O2 Delivery Device Vent Setting Inspired O2 Critical Value Sodium Potassium Chloride Carbon Dioxide Anion Gap BUN Creatinine Estimated GFR POC Glucose 68 Random Glucose Lactic Acid Calcium Calcium Adj for Albumin Phosphorus Magnesium Total Bilirubin AST ALT Alkaline Phosphatase Ammonia 31 Total Protein Albumin Nasal Screen MRSA (PCR) Blood Type Blood Type Recheck Antibody Screen 02/09/18 02/09/18 02/09/18 19:33 19:47 19:48 WBC RBC Hgb Hct MCV MCH MCHC RDW Plt Count MPV Neut % (Auto) Lymph % (Auto) [place] % (Auto) Eos % (Auto) Baso % (Auto) Neut # (Auto) Lymph # (Auto) [place] # (Auto) Eos # (Auto) Baso # (Auto) WBC Differential Differential Comment PT INR APTT Puncture Site Right radial Patient Temperature 98.6 O2 Saturation 98 ABG pH 7.44 H ABG pCO2 21 L* ABG pO2 257 H ABG HCO3 14 L* ABG O2 Content 13.0 ABG Base Excess -9.2 L ABG Methemoglobin 0.5 Richie Test Present Hemoglobin 9.0 L Carboxyhemoglobin 1.4 O2 Delivery Device Ventilator Vent Setting Vac/16/550/+5 Inspired O2 50 Critical Value Yes Sodium Potassium Chloride Carbon Dioxide Anion Gap BUN Creatinine Estimated GFR POC Glucose Random Glucose Lactic Acid 5.2 H* Calcium Calcium Adj for Albumin Phosphorus Magnesium Total Bilirubin AST ALT Alkaline Phosphatase Ammonia Total Protein Albumin Nasal Screen MRSA (PCR) Blood Type O Positive Blood Type Recheck Required Antibody Screen Negative 02/09/18 02/09/18 02/09/18 19:54 20:20 22:24 WBC RBC Hgb Hct MCV MCH MCHC RDW Plt Count MPV Neut % (Auto) Lymph % (Auto) [place] % (Auto) Eos % (Auto) Baso % (Auto) Neut # (Auto) Lymph # (Auto) [place] # (Auto) Eos # (Auto) Baso # (Auto) WBC Differential Differential Comment PT INR APTT Puncture Site Right radial Patient Temperature 98.6 O2 Saturation 98 ABG pH 7.43 H ABG pCO2 20 L* ABG pO2 252 H ABG HCO3 13 L* ABG O2 Content 12.0 ABG Base Excess -10.3 L ABG Methemoglobin 1.3 Richie Test Present Hemoglobin 8.3 L Carboxyhemoglobin 1.3 O2 Delivery Device Ventilator Vent Setting Prvc/ac Inspired O2 50 Critical Value Yes Sodium Potassium Chloride Carbon Dioxide Anion Gap BUN Creatinine Estimated GFR POC Glucose 74 86 Random Glucose Lactic Acid Calcium Calcium Adj for Albumin Phosphorus Magnesium Total Bilirubin AST ALT Alkaline Phosphatase Ammonia Total Protein Albumin Nasal Screen MRSA (PCR) Blood Type Blood Type Recheck Antibody Screen 02/09/18 02/10/18 02/10/18 23:00 00:50 01:04 WBC RBC Hgb Hct MCV MCH MCHC RDW Plt Count MPV Neut % (Auto) Lymph % (Auto) [place] % (Auto) Eos % (Auto) Baso % (Auto) Neut # (Auto) Lymph # (Auto) [place] # (Auto) Eos # (Auto) Baso # (Auto) WBC Differential Differential Comment PT INR APTT Puncture Site Right radial Patient Temperature 98.6 O2 Saturation 98 ABG pH 7.42 ABG pCO2 21 L* ABG pO2 209 H ABG HCO3 13 L* ABG O2 Content 12.3 ABG Base Excess -10.6 L ABG Methemoglobin 1.2 Richie Test Present Hemoglobin 8.6 L Carboxyhemoglobin 1.2 O2 Delivery Device Ventilator Vent Setting Prvc/ac 10 [id number] Inspired O2 40 Critical Value Yes Sodium Potassium Chloride Carbon Dioxide Anion Gap BUN Creatinine Estimated GFR POC Glucose 75 Random Glucose Lactic Acid Calcium Calcium Adj for Albumin Phosphorus Magnesium Total Bilirubin AST ALT Alkaline Phosphatase Ammonia Total Protein Albumin Nasal Screen MRSA (PCR) Not detected Blood Type Blood Type Recheck Antibody Screen 02/10/18 02/10/18 02/10/18 02:52 02:52 02:52 WBC 13.4 H RBC 2.55 L Hgb 7.9 L D Hct 24.4 L MCV 96.0 MCH 31.2 MCHC 32.5 RDW 14.1 Plt Count 146 L MPV 9.5 Neut % (Auto) 91.7 H Lymph % (Auto) 2.9 L [place] % (Auto) 5.0 Eos % (Auto) 0.1 Baso % (Auto) 0.3 Neut # (Auto) 12.3 H Lymph # (Auto) 0.4 L [place] # (Auto) 0.7 Eos # (Auto) 0.0 Baso # (Auto) 0.0 WBC Differential . Differential Comment Auto diff final PT 12.9 H INR 1.3 APTT Puncture Site Patient Temperature O2 Saturation ABG pH ABG pCO2 ABG pO2 ABG HCO3 ABG O2 Content ABG Base Excess ABG Methemoglobin Richie Test Hemoglobin Carboxyhemoglobin O2 Delivery Device Vent Setting Inspired O2 Critical Value Sodium 147 H Potassium 3.6 Chloride 120 H Carbon Dioxide 15.2 L Anion Gap 12 BUN 26 H Creatinine 1.24 Estimated GFR 59 L POC Glucose Random Glucose 70 L Lactic Acid Calcium 7.3 L* Calcium Adj for Albumin 8.8 Phosphorus 3.5 Magnesium 1.4 L Total Bilirubin 0.5 AST 71 H ALT 21 Alkaline Phosphatase 59 Ammonia Total Protein 5.1 L D Albumin 2.1 L D Nasal Screen MRSA (PCR) Blood Type Blood Type Recheck Antibody Screen 02/10/18 02/10/18 02/10/18 03:45 05:33 06:45 WBC RBC Hgb Hct MCV MCH MCHC RDW Plt Count MPV Neut % (Auto) Lymph % (Auto) [place] % (Auto) Eos % (Auto) Baso % (Auto) Neut # (Auto) Lymph # (Auto) [place] # (Auto) Eos # (Auto) Baso # (Auto) WBC Differential Differential Comment PT INR APTT Puncture Site Right brachial Patient Temperature 98.6 O2 Saturation 97 ABG pH 7.40 ABG pCO2 26 L ABG pO2 156 H ABG HCO3 16 L* ABG O2 Content 10.4 L ABG Base Excess -7.9 L ABG Methemoglobin 1.0 Richie Test Present Hemoglobin 7.3 L* Carboxyhemoglobin 1.4 O2 Delivery Device Ventilator Vent Setting Prvc/ac 10 [id number] Inspired O2 30 Critical Value Yes Sodium Potassium Chloride Carbon Dioxide Anion Gap BUN Creatinine Estimated GFR POC Glucose 95 Random Glucose Lactic Acid 5.1 H* Calcium Calcium Adj for Albumin Phosphorus Magnesium Total Bilirubin AST ALT Alkaline Phosphatase Ammonia Total Protein Albumin Nasal Screen MRSA (PCR) Blood Type Blood Type Recheck Antibody Screen 02/10/18 Unknown WBC RBC Hgb Hct MCV MCH MCHC RDW Plt Count MPV Neut % (Auto) Lymph % (Auto) [place] % (Auto) Eos % (Auto) Baso % (Auto) Neut # (Auto) Lymph # (Auto) [place] # (Auto) Eos # (Auto) Baso # (Auto) WBC Differential Differential Comment PT INR APTT Puncture Site Patient Temperature O2 Saturation ABG pH ABG pCO2 ABG pO2 ABG HCO3 ABG O2 Content ABG Base Excess ABG Methemoglobin Richie Test Hemoglobin Carboxyhemoglobin O2 Delivery Device Vent Setting Inspired O2 Critical Value Sodium Potassium Chloride Carbon Dioxide Anion Gap BUN Creatinine Estimated GFR POC Glucose Random Glucose Lactic Acid 6.8 H* Calcium Calcium Adj for Albumin Phosphorus Magnesium Total Bilirubin AST ALT Alkaline Phosphatase Ammonia Total Protein Albumin Nasal Screen MRSA (PCR) Blood Type Blood Type Recheck Antibody Screen Result Diagrams: 02/10/18 14:35 02/10/18 14:35 Imaging: ITS Impressions Chest X-Ray 02/09/18 16:54 CONCLUSION: 1. Interval intubation and placement of nasogastric tube. 2. No acute cardiopulmonary disease. Cervical Spine CT 02/09/18 20:32 CONCLUSION: 1. Negative trauma CT. Head CT 02/10/18 06:00 CONCLUSION: 1. Stable right temporal parietal subdural hematoma. 2. No new findings. . Assessment and Plan - Plan 62y.o m with hx as per HPI - No additional intervention needed - Continue care as per primary team. Transfuse as per primary team - Keep montemayor in, continue CBI and if not draining well due to blood clots/ clogging, irrigate manually. Since urine currently clear, try to wean off CBI starting tomorrow If hematuria persists will need an CT abd/pelvis and cysto as an outpt - Otherwise continue Flomax and keep montemayor as needed by primary team until pt recovers Discussed Condition With: Dr Bonnie MELENDREZ attending
[2018-02-10] MEDS: Acetaminophen 325 MG Tablet PO PRN (11:41)
--- NOTE | 2018-02-10 13:14 | P.PNCC ---
Subjective Subjective Remarks/Hospital Course: 02/09: 62yM transferred from [facility] for acute subdural hematoma. As per the patient's records, he is from a nursing facility and presented on 02/08 for altered mental status, subsequently developed fever, tachycardia, and leukocytosis, had a Cespedes catheter placed with balloon likely inflated in posterior urethra and developed hematuria. On 02/09, the patient attempted to get out of bed and fell on the floor, hitting his head; it is unclear in the notes whether he lost consciousness but a CTH showed a 5 mm right subdural hematoma without shift or mass effect. He had a laceration to his right upper forehead which was repaired prior to transfer. He had worsening encephalopathy and was intubated prior to transfer. The patient is currently encephalopathic and intubated, therefore unable to provide any meaningful contribution to HPI. History was therefore obtained from the ED physician and records from [facility]. 02/10: Remains sedated, orally intubated on mechanical ventilation. CBI ongoing for hematuria. Patient has been evaluated by neurosurgery and no intervention planned for subdural hemorrhage. Blood cultures positive for gram- positive cocci 4 out of 4. Objective Vital Signs / I&O: Vital Signs 02/09/18 16:53 02/09/18 17:23 02/09/18 18:10 Temperature 101.5 F H Pulse Rate 127 H 128 H Respiratory Rate 27 H 16 18 Blood Pressure 137/87 91/69 L Pulse Oximetry 95 100 97 02/09/18 18:24 02/09/18 19:52 02/09/18 20:41 Temperature 103.4 F H Pulse Rate 124 H 128 H Respiratory Rate 16 16 Blood Pressure 107/63 120/83 Pulse Oximetry 100 99 02/09/18 21:23 02/09/18 21:25 02/09/18 21:32 Temperature Pulse Rate 127 H 127 H 125 H Respiratory Rate 28 H 29 H 26 H Blood Pressure 190/134 H 119/69 Pulse Oximetry 100 100 02/09/18 21:39 02/09/18 21:40 02/09/18 21:45 Temperature Pulse Rate 124 H 124 H 126 H Respiratory Rate 14 28 H 27 H Blood Pressure 139/80 137/75 127/65 Pulse Oximetry 100 100 94 L 02/09/18 21:49 02/09/18 22:00 02/09/18 22:04 Temperature Pulse Rate 124 H 123 H 122 H Respiratory Rate 26 H 27 H 26 H Blood Pressure 118/72 109/61 Pulse Oximetry 89 L 100 100 02/09/18 22:12 02/09/18 22:23 02/09/18 22:34 Temperature Pulse Rate 120 H 119 H Respiratory Rate 25 H 25 H 26 H Blood Pressure 101/68 89/58 L Pulse Oximetry 100 100 100 02/09/18 22:49 02/09/18 23:00 02/09/18 23:04 Temperature Pulse Rate 121 H 119 H 119 H Respiratory Rate 28 H 26 H 26 H Blood Pressure 120/72 110/71 Pulse Oximetry 100 100 100 02/09/18 23:18 02/09/18 23:19 02/09/18 23:34 Temperature Pulse Rate 120 H 121 H 117 H Respiratory Rate 28 H 27 H 26 H Blood Pressure 115/84 118/70 126/67 Pulse Oximetry 98 100 100 02/09/18 23:49 02/10/18 00:00 02/10/18 00:04 Temperature 98.9 F Pulse Rate 115 H 114 H 114 H Respiratory Rate 26 H 25 H 26 H Blood Pressure 124/64 104/68 Pulse Oximetry 100 100 100 02/10/18 00:05 02/10/18 00:14 02/10/18 00:17 Temperature Pulse Rate 114 H 113 H Respiratory Rate 25 H 25 H Blood Pressure Pulse Oximetry 100 02/10/18 00:19 02/10/18 00:34 02/10/18 00:49 Temperature Pulse Rate 111 H 111 H 110 H Respiratory Rate 24 24 23 Blood Pressure 105/71 113/68 104/64 Pulse Oximetry 100 100 100 02/10/18 01:00 02/10/18 01:10 02/10/18 01:19 Temperature Pulse Rate 109 H 107 H 107 H Respiratory Rate 25 H 23 24 Blood Pressure 98/62 L 97/62 L Pulse Oximetry 100 100 100 02/10/18 01:34 02/10/18 01:49 02/10/18 02:00 Temperature Pulse Rate 106 H 104 H 103 H Respiratory Rate 24 24 23 Blood Pressure 100/66 101/66 Pulse Oximetry 100 97 97 02/10/18 02:04 02/10/18 02:19 02/10/18 02:34 Temperature Pulse Rate 103 H 102 H 99 H Respiratory Rate 23 22 20 Blood Pressure 93/57 L 95/59 L 95/61 L Pulse Oximetry 98 100 100 02/10/18 02:49 02/10/18 03:00 02/10/18 03:12 Temperature Pulse Rate 99 H 97 H Respiratory Rate 18 18 Blood Pressure 90/62 L Pulse Oximetry 100 98 99 02/10/18 03:15 02/10/18 03:39 02/10/18 04:00 Temperature 98.3 F Pulse Rate 99 H 100 H 97 H Respiratory Rate 18 16 12 Blood Pressure 123/73 Pulse Oximetry 100 97 02/10/18 04:16 02/10/18 04:46 02/10/18 05:00 Temperature Pulse Rate 100 H 97 H 97 H Respiratory Rate 16 0 L Blood Pressure 89/59 L 110/66 Pulse Oximetry 99 100 02/10/18 05:16 02/10/18 05:46 02/10/18 06:00 Temperature Pulse Rate 94 H 92 H 92 H Respiratory Rate 16 Blood Pressure 98/67 L 85/59 L Pulse Oximetry 100 100 100 02/10/18 06:16 02/10/18 06:46 02/10/18 07:00 Temperature Pulse Rate 94 H 90 92 H Respiratory Rate 0 L 10 L 10 L Blood Pressure 94/63 L 91/60 L Pulse Oximetry 100 100 100 02/10/18 07:16 02/10/18 07:44 02/10/18 07:46 Temperature Pulse Rate 93 H 91 H 92 H Respiratory Rate 10 L 15 0 L Blood Pressure 109/68 88/59 L Pulse Oximetry 100 100 100 02/10/18 08:00 02/10/18 08:16 02/10/18 08:46 Temperature Pulse Rate 93 H 95 H 98 H Respiratory Rate 10 L 11 L 10 L Blood Pressure 90/52 L 121/74 Pulse Oximetry 100 100 100 02/10/18 09:00 02/10/18 09:16 02/10/18 09:46 Temperature Pulse Rate 99 H 100 H 103 H Respiratory Rate 12 12 13 Blood Pressure 111/70 107/58 L Pulse Oximetry 100 100 100 02/10/18 10:00 02/10/18 10:16 02/10/18 10:46 Temperature Pulse Rate 104 H 103 H 104 H Respiratory Rate 15 14 14 Blood Pressure 100/59 L 92/57 L Pulse Oximetry 100 100 100 02/10/18 11:00 02/10/18 11:16 02/10/18 11:37 Temperature Pulse Rate 105 H 109 H 110 H Respiratory Rate 13 18 12 Blood Pressure 99/60 L Pulse Oximetry 100 100 100 02/10/18 11:46 02/10/18 12:00 Temperature 100.6 F H Pulse Rate 109 H 111 H Respiratory Rate 15 14 Blood Pressure 91/59 L Pulse Oximetry 100 100 Intake & Output 02/09/18 02/10/18 02/10/18 18:59 06:59 18:59 Intake Total 5643 / 5643 1255 / 1255 Output Total 50 / 50 Balance 5593 / 5593 1255 / 1255 Weight 83.915 kg 68.3 kg Intake: IV 5643 / 5643 1255 / 1255 Diprivan 1000 mg/100 ml Inj 1, 100 / 100 000 mg In 100 ml @ 5 MCG/KG/MIN 2.517 mls/hr IV.CONT TITRATE PRN Rx#:[id number] NS Inj 1,000 ML @ 125 mls/hr IV 500 / 500 .CONT .Q8H ALEXX Rx#:[id number] Sodium Bicarbonate 8.4% Inj 150 1000 / 1000 MEQ In D5W Inj 850 ML @ 125 mls/hr IV.CONT .Q8H ALEXX Rx#: [id number] Flexbumin 25% Inj 100 ML @ 60 100 / 100 mls/hr IV.SIG ONCE ONE Rx#: [id number] Maxipime Inj 2,000 MG In NS Inj 100 / 100 100 ML @ 200 mls/hr IV.SIG ONCE ONE Rx#:[id number] Magnesium Sulfate Inj 2 GM In 100 / 100 NS Inj 96 ML @ 50 mls/hr IV.SIG UNSCH PRN Rx#:[id number] Zosyn 3.375 GM Premix 3.375 gm 100 / 100 50 / 50 In 50 ml @ 100 mls/hr IV.SIG Q6H [facility] Rx#:[id number] NS Inj 1,000 ML @ Wide Open IV. 4000 / 4000 SIG BOLUS ONE Rx#:[id number] Thiamine Inj 100 MG In NS Inj 101 / 101 100 ML @ 100 mls/hr IV.SIG Q24H [facility] Rx#:[id number] Vancomycin Inj 2,100 MG In NS 542 / 542 Inj 500 ML @ 250 mls/hr IV.SIG ONCE ONE Rx#:[id number] Keppra 1000 mg/100 mL Premix 100 / 100 100 ML @ 400 mls/hr IV.SIG ONCE ONE Rx#:[id number] Keppra Inj 500 MG In NS Inj 100 105 / 105 ML @ 400 mls/hr IV.SIG Q12H [facility] Rx#:[id number] Output: Gastric Drainage 50 / 50 Pre-Hospital Oral Orogastric 50 / 50 Tube Other: Bladder Irrigation Fluid - Amount Instilled 3-way Urethral 3,000 Bladder Irrigation Fluid - Amount Drained 3-way Urethral 4,350 Date of Last Bowel Movement 02/09/18 02/09/18 Weight On Admission 65.4 kg Result Diagrams: 02/10/18 02:52 02/10/18 02:52 Imaging: Impressions Chest X-Ray 02/09/18 16:54 CONCLUSION: 1. Interval intubation and placement of nasogastric tube. 2. No acute cardiopulmonary disease. Head CT 02/09/18 16:54 CONCLUSION: 1. Acute subdural hematoma involving the right temporoparietal region measuring 5 mm in width. No significant midline shift is noted. 2. Subgaleal hematoma is noted along the right parietal skull. . Cervical Spine CT 02/09/18 20:32 CONCLUSION: 1. Negative trauma CT. Head CT 02/10/18 06:00 CONCLUSION: 1. Stable right temporal parietal subdural hematoma. 2. No new findings. . Objective Remarks: GEN: Elderly male, intubated and sedated HEENT: 3 cm linear laceration to right upper forehead near hairline with 5 simple interrupted sutures present; no epistaxis or septal hematoma, no intraoral trauma, no raccoon eyes or Arboleda's sign, pupils 3 mm and briskly reactive bilaterally NECK: Trachea midline CARDIO: Tachy, regular PULM: Mechanical breath sounds present and equal bilaterally ABD/GI: Soft, non-distended EXT/MSK: No apparent extremity trauma SKIN: Warm and well-perfused NEURO: GCS 9T ([id number]), RASS -2, withdraws all extremities and spontaneously moves bilateral upper extremities PSYCH: Unable to assess Assessment and Plan - Assessment and Plan Plan: 62yM presenting with acute encephalopathy, severe sepsis, and acute traumatic SDH NEURO: Acute traumatic SDH Acute encephalopathy History of Wernicke's encephalopathy * CTH repeated on arrival to our ED, unchanged as compared to [facility] records, will repeat CTH in AM * CT cervical spine negative for acute injuries, moving all extremities, does not require cervical collar * Frequent neuro checks * Avoid all anticoagulants/ antiplatelets * Keppra loading dose given in ED, continue 500 mg BID dosing * Neurosurgery recommendations appreciated, no interventions currently planned * Case discussed with Dr. Sauceda- the patient's primary diagnosis is severe sepsis and encephalopathy, and critical care agreed to admit the patient to the energy trading analyst service with trauma consult * Avoid secondary insults (hypoxia, hypotension, aggressive fever control) * Serum sodium currently 146, continue saline for maintenance fluids * Thiamine supplementation * Hold home modafinil CARDIO: History of hypertension * Hold home doses of amlodipine and ASA in the setting of ICH and severe sepsis PULM: Acute hypoxic respiratory failure requiring mechanical ventilation * Current ABG- 7.48/21.3/257/14.2/-9.2, rate dropped to 14, repeat ABG in 2 hrs * Titrate vent to keep pCO2 35-45 * Titrate down FiO2 as tolerated * CXR shows ETT in appropriate position * Nebs PRN * Pulmonary toilet * Vent bundle F/E/N: * maintenance fluids * ICU electrolyte protocol * If unable to extubate today, plan on starting tube feeds : Hematuria * Patient currently has bright red urine draining from Cespedes, no clots * CT report from [facility] shows that the Cespedes was initially placed and inflated in posterior urethra; will consult urology as patient may have urethral injury * Cespedes was repositioned on arrival to our ED * continuous bladder irrigation ID: Severe sepsis, suspected urosepsis * Aggressive IV hydration * Lynne-cultures. Blood cultures growing GPC from 02/09 (4 of 4) * MRSA swab * Broad-spectrum antibiotics (vanco, zosyn). ID consult requested for sepsis/ bacteremia * Trend lactic acid MSK: Right forehead laceration * Remove sutures in 1 week (on or about 02/16/18) * Update tetanus (unclear if this was given at [facility]) PROPHY: * SCDs only, heparin contraindicated in the setting of SDH * PPI Overall: This patient is critically ill with acute SDH and severe sepsis. He requires ICU level of care. Counseling/ Coordination of Care: This patient is critically ill with impairment of one or more vital organ systems with a high probability of imminent or life-threatening deterioration. High-complexity medical decision making was required to support vital organ function and/ or prevent deterioration in the patient's condition. Total critical care time spent is 40 minutes giving full attention to this patient. This includes examining the patient, gathering history from someone other than the patient (i.e. chart review), discussing the patient's care with other providers, managing the patient's ventilator settings, ordering and interpreting radiologic studies, ordering and interpreting laboratory values, managing the patient's sedation requirements, re-evaluation at frequent intervals, and documentation. Amount of time is separate from teaching, counseling the patient and/or family, and exclusive of procedures.
[2018-02-10] MEDS ORDERED: Sodium Chlor 0.9% Inj 250 ML IV.SIG SCH (14:00)
[2018-02-10] MEDS ORDERED: Sod Chloride 0.9% Inj 2,000 ML IV.SIG ONE (14:00)
[2018-02-10 14:50] LABS: Mean Corpuscular HGB Conc 32.8 % (32.0-36.0); Mean Corpuscular Hemoglobin 31.2 pg (27.0-34.0); Mean Corpuscular Volume 95.2 fL (80.0-100.0); Mean Platelet Volume 9.1 fL (7.0-11.0); Platelet Count 93 th/mm3 (150-450); Red Blood Count 1.98 mil/mm3 (4.50-5.90); Red Cell Distribution Width 14.3 % (11.6-17.2); White Blood Count 7.1 th/mm3 (4.0-11.0)
[2018-02-10 14:56] LABS: Hematocrit 18.8 % (39.0-51.0); Hemoglobin 6.2 gm/dL (13.0-17.0)
[2018-02-10] MEDS: Normosol-R pH 7.4 Inj 1,000 ML IV.CONT SCH ×2 (15:28→23:44)
[2018-02-10 15:34] LABS: Albumin 1.9 g/dL (3.4-5.0); Calcium 6.8 mg/dL (8.5-10.1); Potassium 3.3 meq/L (3.5-5.1)
[2018-02-10 15:35] LABS: Carbon Dioxide 19.9 meq/L (21.0-32.0); Total Protein 4.4 g/dL (6.4-8.2)
--- NOTE | 2018-02-10 16:34 | US ---
EXAM DATE: 02/10/2018 3:48 PM EST AGE/SEX: 62 years / Male INDICATIONS: UTI. Sepsis. CLINICAL DATA: This is the patient's initial encounter. Patient reports that signs and symptoms have been present for 3 days and indicates a pain score of Nonresponsive. MEDICAL/SURGICAL HISTORY: Non-responsive. Acute subdural hematoma. Cespedes catheter. Encephalopat hic. Non-responsive. Intubated. [place] [facility] [place]/2017. . MEASUREMENTS: Right Kidney:__11.2 x 5.8 x 6.0 cm Left Kidney:__10.3 x 6.6 x 5.3 cm FINDINGS: Right Kidney: Normal echogenicity and cortical thickness. There is mild hydronephrosis. Left Kidney: Normal echogenicity and cortical thickness. No mass or hydronephrosis. Bladder: Urinary bladder is distended with hypoechoic avascular material along the dependent aspect. There is no Cespedes catheter balloon in the urinary bladder. It is questionably seen in the posterior u rethra in the region of the prostatic urethra. Other: The slip seat coverer documents a hypoechoic structure containing echogenic foci posterior to the u rinary bladder. Based on the location this probably represents stool within the rectum. CT of the pel vis could be performed if there is any clinical concern for a mass but a prior CT from 2 months ago d emonstrated no abnormality in this region suggesting against a significant abnormality. CONCLUSION: 1. Mild right hydronephrosis. 2. Distended urinary bladder with avascular debris along the dependent aspect. Given the clinical hi story this could represent blood clot. Consider follow-up to confirm resolution. There is no blood fl ow in this structure to suggest that it represents a mass. 3. Cespedes catheter is likely misplaced potentially in the posterior/prostatic urethra. It is not visu alized within the bladder and urinary bladder is distended. Electronically signed by: Justo Avelar MD Board Certified Radiologist 02/10/2018 4:32 PM EST
--- NOTE | 2018-02-10 17:40 | P.CONID ---
History of Present Illness Service: ID Consult date: 02/10/18 Requesting Physician: Tripp Maya Reason for Consult: sepsis Primary Care Provider: UNKNOWN Chief Complaint: Encephalopathy History of Present Illness: Pt is unable to provide medical history HIstory from the chart and from Dr Maya The patient is a 62-year-old male who presents to the emergency department as a trauma transfer from [facility]. The patient apparently was brought from a correction for altered mental status to [facility] and was unable to give a history to the ER staff secondary to his mental status. Apparently the patient was catheterized and was noted to have shanelle blood within the Montemayor catheter. The patient apparently was in the emergency department for an extended time and suffered a fall while in the emergency department. The patient had an initial CT of the brain which revealed a right parietal scalp contusion and left ethmoid sinus disease but essentially unremarkable, however, had a second CT of the brain after the fall which revealed a right hemispheric subdural hematoma measuring up to 5.8 mm with no significant mass- effect or midline shift. The patient apparently was intubated using rapid sequence intubation in the emergency department. Upon arrival the patient is intubated, nonverbal, eyes closed, and only moving the left upper extremity spontaneously. No further information is obtainable from the patient Pt is in ICU His montemayor was replaced with another 22Fr montemayor cath [address] Urology consulted His H/H decreased. He is getting blood transfusions Has mild leukocytosis. Cr is normal. Montemayor is in place, pt is on CBI ongoing for hematuria The patient is currently encephalopathic and intubated, Pt remains sedated, on mechanical ventilation. Patient has been evaluated by neurosurgery and no intervention planned for subdural hemorrhage since its stable. His blood cultures are growing Enterococcus 4/4 bottles He is obn zosyn, vancomycion Review of Systems unobtainable due to endotracheal tube, unobtainable due to mental status PMFSH - History History Provided By: Medical Record - Medical / Surgical Hx Neg / Unobtainable Medical Problems Denied: Unable to Obtain - Tobacco History Smoking Status: Unknown if ever smoked - Alcohol History How Often Do You Have a Drink Containing Alcohol: Unable to Obtain - Substance Use History Substance History: Unable to Obtain - Travel History Recent Travel in the [place] Within the Last 8 Weeks: No Recent Travel Out of the Country Within the Last 8 Weeks: No - Immunization History Tetanus Immunization: Unable to Assess Medications and Allergies Active Medications: Active Medications Acetaminophen (Tylenol) 650 mg PO Q6H PRN PRN Reason: PAIN 1-10 AND/OR FEVER >101F Last Admin: 02/10/18 11:41 Dose: 650 mg Al Hydroxide/Mg Hydroxide (Milk Of Oneyda Da Silva) 30 ml PO Q12H PRN PRN Reason: Mild Constipation Albuterol (Duoneb Neb (Prn)) 1 ampul NEB Q2HR NEB PRN PRN Reason: WHEEZING Albuterol (Duoneb Neb (Joy)) 1 ampul NEB Q4HR NEB [facility] Last Admin: 02/10/18 15:43 Dose: 1 ampul Bisacodyl (Dulcolax Supp) 10 mg RECTAL DAILY PRN PRN Reason: SEVERE CONSITIPATION Chlorhexidine Gluconate (Chlorhexidine 2% Cloth) 3 pack TOPICAL DAILY@0400 [facility] Stop: 02/15/18 03:59 Last Admin: 02/10/18 03:37 Dose: 3 pack Chlorhexidine Gluconate (Chlorhexidine 2% Cloth) 3 pack TOPICAL DAILY@0400 PRN PRN Reason: Extra cloth needed Stop: 02/15/18 03:59 Chlorhexidine Gluconate (Peridex 0.12% Oral Kit) 15 ml OROPHARYNG BID@0800, 2000 [facility] Last Admin: 02/10/18 07:57 Dose: 15 ml Famotidine (Pepcid) 20 mg PO BID [facility] Last Admin: 02/10/18 07:59 Dose: Not Given Famotidine (Pepcid Pf Inj) 20 mg IV.PUSH Q12HR [facility] Last Admin: 02/10/18 07:59 Dose: 20 mg Levetiracetam 500 mg/ Sodium (Chloride) 105 mls @ 400 mls/hr IV.SIG Q12H [facility] Last Infusion: 02/10/18 08:13 Dose: Infused Piperacillin/Tazobactam/Dextrose (Zosyn 3.375 Gm Premix) 3.375 gm in 50 mls @ 100 mls/hr IV.SIG Q6H [facility] Last Infusion: 02/10/18 14:12 Dose: Infused Magnesium Sulfate 4 gm/ Sodium (Chloride) 100 mls @ 50 mls/hr IV.SIG UNSCH PRN PRN Reason: For Magnesium 0.9 - 1.1 mg/dL Potassium Chloride (Kcl 40 Meq Premix Inj) 40 meq in 100 mls @ 25 mls/hr IV.SIG Q2H PRN PRN Reason: For Potassium 2.8 - 3.2 mEq/L Potassium Chloride (Kcl 20 Meq Premix Inj) 20 meq in 100 mls @ 50 mls/hr IV.SIG Q2H PRN PRN Reason: For Potassium 3.3 - 3.5 mEq/L Potassium Chloride (Kcl 40 Meq Premix Inj) 40 meq in 100 mls @ 25 mls/hr IV.SIG UNSCH PRN PRN Reason: For Potassium 3.3 - 3.5 mEq/L Potassium Phosphate 30 mmol/ (Sodium Chloride) 260 mls @ 42 mls/hr IV.SIG UNSCH PRN PRN Reason: SEE LABEL COMMENTS Sodium Phosphate 30 mmol/ (Sodium Chloride) 260 mls @ 42 mls/hr IV.SIG UNSCH PRN PRN Reason: For Phosphorus < 2.5 mg/dL Magnesium Sulfate 2 gm/ Sodium (Chloride) 100 mls @ 50 mls/hr IV.SIG UNSCH PRN PRN Reason: For Magnesium 1.2 - 1.6 mg/dL Last Infusion: 02/10/18 11:53 Dose: Infused Potassium Chloride (Kcl 20 Meq Premix Inj) 20 meq in 100 mls @ 50 mls/hr IV.SIG Q2H PRN PRN Reason: For Potassium 2.8 - 3.2 mEq/L Fentanyl (Fentanyl 10 Mcg/Ml Premix Drip) 2,500 mcg in 250 mls @ 5 mls/hr IV.SIG TITRATE PRN; Protocol PRN Reason: Per Protocol Last Titration: 02/10/18 14:12 Dose: 50 mcg/hr, 5 mls/hr Propofol (Diprivan 1000 Mg/100 Ml Inj) 1,000 mg in 100 mls @ 2.517 mls/hr IV.CONT TITRATE PRN; Protocol PRN Reason: Per Protocol Last Titration: 02/10/18 14:13 Dose: 15 mcg/kg/min, 7.55 mls/hr Thiamine HCl 100 mg/ Sodium (Chloride) 101 mls @ 100 mls/hr IV.SIG Q24H [facility] Last Infusion: 02/10/18 00:55 Dose: Infused Sodium Bicarbonate 150 meq/ (Dextrose) 1,000 mls @ 50 mls/hr IV.CONT .Q20H [facility] Last Infusion: 02/10/18 16:13 Dose: 0 mls/hr Vancomycin HCl 1,250 mg/ (Sodium Chloride) 262.5 mls @ 250 mls/hr IV.SIG Q24H [facility] Parenteral Electrolytes (Normosol-R Ph 7.4 Inj) 1,000 mls @ 125 mls/hr IV.CONT .Q8H [facility] Last Admin: 02/10/18 15:28 Dose: 125 mls/hr Sodium Chloride (Ns Inj) 250 mls @ 15 mls/hr IV.SIG ONCE [facility] Stop: 02/11/18 06:39 Last Admin: 02/10/18 14:30 Dose: 15 mls/hr Lactulose (Lactulose Liq) 30 ml PO DAILY PRN PRN Reason: SEVERE CONSITIPATION Lorazepam (Ativan Inj) 1 mg IV.PUSH Q2H PRN PRN Reason: VENTILATOR CONTROL Magnesium Oxide (Mag-Ox) 800 mg PO UNSCH PRN PRN Reason: For Magnesium 1.2 - 1.6 mg/dL Miscellaneous Information ([facility] Ordered Lab Info) 0 each OTHER ONCE ONE Stop: 02/12/18 22:46 Miscellaneous Medication () 1 each OROPHARYNG 0000,0400,1200,1600 [facility] Last Admin: 02/10/18 16:12 Dose: 1 each Ondansetron HCl (Zofran Inj) 4 mg IV.PUSH Q6H PRN PRN Reason: NAUSEA OR VOMITING Pharmacy Profile Note (Vancomycin Consult Pharmacy) 1 each OTHER UNSCH PRN PRN Reason: Pharmacy to dose Potassium Bicarb/Potassium Chloride (K-Lyte Cl Eff) 50 meq PO UNSCH PRN PRN Reason: For Potassium 3.3 - 3.5 mEq/L Potassium Phosphate (K-Phos Original) 2,000 mg PO Q4H PRN PRN Reason: Phosphorus Less Than 2.5 mg/dL Potassium Phosphate (K-Phos Original) 2,000 mg PO UNSCH PRN PRN Reason: SEE LABEL COMMENTS Senna/Docusate Sodium (Esperanza-Colace) 1 tab PO BID [facility] Last Admin: 02/10/18 07:59 Dose: 1 tab Sennosides (Senokot) 17.2 mg PO Q12H PRN PRN Reason: Moderate Constipation Sodium Chloride (Ns Flush) 2 ml IV.FLUSH BID [facility] Last Admin: 02/10/18 07:59 Dose: 2 ml Sodium Chloride (Ns Flush) 2 ml IV.FLUSH PRN PRN PRN Reason: FLUSH AFTER USING IV ACCESS Tamsulosin HCl (Flomax) 0.4 mg PO DAILY [facility] Last Admin: 02/10/18 07:59 Dose: 0.4 mg Allergies Allergy/AdvReac Type Severity Reaction Status Date / Time codeine Allergy Severe PASSES OUT Unverified 12/12/17 13:15 Exam Vital signs: Vital Signs 02/09/18 18:10 02/09/18 18:24 02/09/18 19:52 Temperature Pulse Rate 128 H 124 H 128 H Respiratory Rate 18 16 16 Blood Pressure 91/69 L 107/63 120/83 Pulse Oximetry 97 100 99 02/09/18 20:41 02/09/18 21:23 02/09/18 21:25 Temperature 103.4 F H Pulse Rate 127 H 127 H Respiratory Rate 28 H 29 H Blood Pressure 190/134 H Pulse Oximetry 100 02/09/18 21:32 02/09/18 21:39 02/09/18 21:40 Temperature Pulse Rate 125 H 124 H 124 H Respiratory Rate 26 H 14 28 H Blood Pressure 119/69 139/80 137/75 Pulse Oximetry 100 100 100 02/09/18 21:45 02/09/18 21:49 02/09/18 22:00 Temperature Pulse Rate 126 H 124 H 123 H Respiratory Rate 27 H 26 H 27 H Blood Pressure 127/65 118/72 Pulse Oximetry 94 L 89 L 100 02/09/18 22:04 02/09/18 22:12 02/09/18 22:23 Temperature Pulse Rate 122 H 120 H Respiratory Rate 26 H 25 H 25 H Blood Pressure 109/61 101/68 Pulse Oximetry 100 100 100 02/09/18 22:34 02/09/18 22:49 02/09/18 23:00 Temperature Pulse Rate 119 H 121 H 119 H Respiratory Rate 26 H 28 H 26 H Blood Pressure 89/58 L 120/72 Pulse Oximetry 100 100 100 02/09/18 23:04 02/09/18 23:18 02/09/18 23:19 Temperature Pulse Rate 119 H 120 H 121 H Respiratory Rate 26 H 28 H 27 H Blood Pressure 110/71 115/84 118/70 Pulse Oximetry 100 98 100 02/09/18 23:34 02/09/18 23:49 02/10/18 00:00 Temperature 98.9 F Pulse Rate 117 H 115 H 114 H Respiratory Rate 26 H 26 H 25 H Blood Pressure 126/67 124/64 Pulse Oximetry 100 100 100 02/10/18 00:04 02/10/18 00:05 02/10/18 00:14 Temperature Pulse Rate 114 H 114 H Respiratory Rate 26 H 25 H Blood Pressure 104/68 Pulse Oximetry 100 100 02/10/18 00:17 02/10/18 00:19 02/10/18 00:34 Temperature Pulse Rate 113 H 111 H 111 H Respiratory Rate 25 H 24 24 Blood Pressure 105/71 113/68 Pulse Oximetry 100 100 02/10/18 00:49 02/10/18 01:00 02/10/18 01:10 Temperature Pulse Rate 110 H 109 H 107 H Respiratory Rate 23 25 H 23 Blood Pressure 104/64 98/62 L Pulse Oximetry 100 100 100 02/10/18 01:19 02/10/18 01:34 02/10/18 01:49 Temperature Pulse Rate 107 H 106 H 104 H Respiratory Rate 24 24 24 Blood Pressure 97/62 L 100/66 101/66 Pulse Oximetry 100 100 97 02/10/18 02:00 02/10/18 02:04 02/10/18 02:19 Temperature Pulse Rate 103 H 103 H 102 H Respiratory Rate 23 23 22 Blood Pressure 93/57 L 95/59 L Pulse Oximetry 97 98 100 02/10/18 02:34 02/10/18 02:49 02/10/18 03:00 Temperature Pulse Rate 99 H 99 H 97 H Respiratory Rate 20 18 Blood Pressure 95/61 L 90/62 L Pulse Oximetry 100 100 98 02/10/18 03:12 02/10/18 03:15 02/10/18 03:39 Temperature Pulse Rate 99 H 100 H Respiratory Rate 18 18 16 Blood Pressure 123/73 Pulse Oximetry 99 100 02/10/18 04:00 02/10/18 04:16 02/10/18 04:46 Temperature 98.3 F Pulse Rate 97 H 100 H 97 H Respiratory Rate 12 16 Blood Pressure 89/59 L 110/66 Pulse Oximetry 97 99 02/10/18 05:00 02/10/18 05:16 02/10/18 05:46 Temperature Pulse Rate 97 H 94 H 92 H Respiratory Rate 0 L Blood Pressure 98/67 L 85/59 L Pulse Oximetry 100 100 100 02/10/18 06:00 02/10/18 06:16 02/10/18 06:46 Temperature Pulse Rate 92 H 94 H 90 Respiratory Rate 16 0 L 10 L Blood Pressure 94/63 L 91/60 L Pulse Oximetry 100 100 100 02/10/18 07:00 02/10/18 07:16 02/10/18 07:44 Temperature Pulse Rate 92 H 93 H 91 H Respiratory Rate 10 L 10 L 15 Blood Pressure 109/68 Pulse Oximetry 100 100 100 02/10/18 07:46 02/10/18 08:00 02/10/18 08:16 Temperature Pulse Rate 92 H 93 H 95 H Respiratory Rate 0 L 10 L 11 L Blood Pressure 88/59 L 90/52 L Pulse Oximetry 100 100 100 02/10/18 08:46 02/10/18 09:00 02/10/18 09:16 Temperature Pulse Rate 98 H 99 H 100 H Respiratory Rate 10 L 12 12 Blood Pressure 121/74 111/70 Pulse Oximetry 100 100 100 02/10/18 09:46 02/10/18 10:00 02/10/18 10:16 Temperature Pulse Rate 103 H 104 H 103 H Respiratory Rate 13 15 14 Blood Pressure 107/58 L 100/59 L Pulse Oximetry 100 100 100 02/10/18 10:46 02/10/18 11:00 02/10/18 11:16 Temperature Pulse Rate 104 H 105 H 109 H Respiratory Rate 14 13 18 Blood Pressure 92/57 L 99/60 L Pulse Oximetry 100 100 100 02/10/18 11:37 02/10/18 11:46 02/10/18 12:00 Temperature 100.6 F H Pulse Rate 110 H 109 H 111 H Respiratory Rate 12 15 14 Blood Pressure 91/59 L Pulse Oximetry 100 100 100 02/10/18 12:16 02/10/18 12:17 02/10/18 12:46 Temperature Pulse Rate 108 H 108 H 102 H Respiratory Rate 10 L 10 L 10 L Blood Pressure 88/52 L 86/53 L 88/54 L Pulse Oximetry 100 100 100 02/10/18 12:55 02/10/18 13:00 02/10/18 13:15 Temperature Pulse Rate 100 H 100 H 100 H Respiratory Rate 7 L 8 L 9 L Blood Pressure 86/50 L 84/53 L Pulse Oximetry 100 100 100 02/10/18 13:16 02/10/18 13:28 02/10/18 13:46 Temperature Pulse Rate 98 H 97 H 101 H Respiratory Rate 8 L 9 L 20 Blood Pressure 88/55 L 94/70 L 104/67 Pulse Oximetry 100 100 100 02/10/18 14:00 02/10/18 14:07 02/10/18 14:16 Temperature Pulse Rate 96 H 105 H 99 H Respiratory Rate 11 L 16 12 Blood Pressure 122/62 105/57 L Pulse Oximetry 100 100 100 02/10/18 14:46 02/10/18 15:00 02/10/18 15:16 Temperature Pulse Rate 104 H 104 H 100 H Respiratory Rate 11 L 13 11 L Blood Pressure 95/59 L 86/55 L Pulse Oximetry 100 100 100 02/10/18 15:39 02/10/18 15:44 02/10/18 15:46 Temperature 99.8 F H Pulse Rate 100 H 99 H 101 H Respiratory Rate 10 L 15 11 L Blood Pressure 86/55 L 88/55 L Pulse Oximetry 100 100 100 02/10/18 15:55 02/10/18 16:00 02/10/18 16:20 Temperature 98.8 F 99.8 F H Pulse Rate 102 H 101 H 103 H Respiratory Rate 10 L 11 L 12 Blood Pressure 127/60 127/60 Pulse Oximetry 100 100 100 02/10/18 17:27 Temperature 99.8 F H Pulse Rate 101 H Respiratory Rate 10 L Blood Pressure 124/57 L Pulse Oximetry 100 Intake & Output 02/09/1818 02/10/18 18:59 06:59 18:59 Intake Total 5643 / 5643 3705 / 3705 Output Total 50 / 50 Balance 5593 / 5593 3705 / 3705 Weight 83.915 kg 68.3 kg Intake: IV 5643 / 5643 3305 / 3305 Diprivan 1000 mg/100 ml Inj 1, 100 / 100 000 mg In 100 ml @ 5 MCG/KG/MIN 2.517 mls/hr IV.CONT TITRATE PRN Rx#:[id number] NS Inj 1,000 ML @ 125 mls/hr IV 500 / 500 .CONT .Q8H [facility] Rx#:[id number] Sodium Bicarbonate 8.4% Inj 150 1000 / 1000 MEQ In D5W Inj 850 ML @ 125 mls/hr IV.CONT .Q8H [facility] Rx#: [id number] Flexbumin 25% Inj 100 ML @ 60 100 / 100 mls/hr IV.SIG ONCE ONE Rx#: [id number] Maxipime Inj 2,000 MG In NS Inj 100 / 100 100 ML @ 200 mls/hr IV.SIG ONCE ONE Rx#:[id number] Magnesium Sulfate Inj 2 GM In 100 / 100 NS Inj 96 ML @ 50 mls/hr IV.SIG UNSCH PRN Rx#:[id number] Zosyn 3.375 GM Premix 3.375 gm 100 / 100 100 / 100 In 50 ml @ 100 mls/hr IV.SIG Q6H [facility] Rx#:[id number] NS Inj 2,000 ML @ Wide Open IV. 4000 / 4000 2000 / 2000 SIG BOLUS ONE Rx#:[id number] Thiamine Inj 100 MG In NS Inj 101 / 101 100 ML @ 100 mls/hr IV.SIG Q24H [facility] Rx#:[id number] Vancomycin Inj 2,100 MG In NS 542 / 542 Inj 500 ML @ 250 mls/hr IV.SIG ONCE ONE Rx#:[id number] Keppra 1000 mg/100 mL Premix 100 / 100 100 ML @ 400 mls/hr IV.SIG ONCE ONE Rx#:[id number] Keppra Inj 500 MG In NS Inj 100 105 / 105 ML @ 400 mls/hr IV.SIG Q12H [facility] Rx#:[id number] Intake (Blood Product) Amt 400 / 400 Rbc As-3 Leukoreduced Unit 0 / 0 [id number] Rbc As-3 Leukoreduced Unit 400 / 400 [id number] Output: Gastric Drainage 50 / 50 Pre-Hospital Oral Orogastric 50 / 50 Tube Other: Bladder Irrigation Fluid - Amount Instilled 3-way Urethral 3,000 Bladder Irrigation Fluid - Amount Drained 3-way Urethral 4,350 Date of Last Bowel Movement 02/09/18 02/09/18 Weight On Admission 65.4 kg - Constitutional no acute distress, average body habitus, chronically ill appearing - Routine HEENT Exam Head: Present: normocephalic. Absent: atraumatic (lac R parietal area) Eye: Present: PERRL. Absent: conjunctival icterus, scleral injection ENT: Present: mucous membranes moist, oropharynx clear - Routine Neck Exam Absent: JVD, lymphadenopathy - Routine Respiratory Exam Present: patient mechanically ventilated, CTA bilaterally - Routine Cardiovascular Exam Present: RRR, S1, S2. Absent: murmur, gallop, rubs - Routine Abdominal Exam Present: normoactive bowel sounds, distended. Absent: tenderness - Routine Exam Comments: foelye in place with blood tinged urine - Routine Extremities Exam Present: normal capillary refill. Absent: cyanosis, clubbing, edema - Routine Skin Exam Absent: cyanosis, erythema, rash - Routine Neurological Exam sedated, not following, withdrawls to pain - Routine Psychiatric Exam Present: unable to assess Results - Labs CBC & Chem 7: 02/10/18 14:35 02/10/18 14:35 Labs: Laboratory Results - last 24 hr 02/09/18 02/09/18 02/09/18 17:11 17:11 17:11 WBC RBC Hgb Hct MCV MCH MCHC RDW Plt Count MPV Neut % (Auto) Lymph % (Auto) [place] % (Auto) Eos % (Auto) Baso % (Auto) Neut # (Auto) Lymph # (Auto) [place] # (Auto) Eos # (Auto) Baso # (Auto) WBC Differential Differential Comment PT INR Puncture Site Patient Temperature O2 Saturation ABG pH ABG pCO2 ABG pO2 ABG HCO3 ABG O2 Content ABG Base Excess ABG Methemoglobin Richie Test Hemoglobin Carboxyhemoglobin O2 Delivery Device Vent Setting Inspired O2 Critical Value Sodium 146 H Potassium 3.6 Chloride 115 H Carbon Dioxide 18.1 L Anion Gap 13 BUN 25 H Creatinine 1.57 H Estimated GFR 45 L POC Glucose Random Glucose 88 Lactic Acid 4.1 H* Calcium 7.8 L Calcium Adj for Albumin Phosphorus Magnesium Total Bilirubin 0.5 AST 44 H ALT 17 Alkaline Phosphatase 81 Ammonia 31 Total Protein 6.2 L Albumin 2.7 L Nasal Screen MRSA (PCR) Blood Type Blood Type Recheck Antibody Screen MTS Gel Crossmatch 02/09/18 02/09/18 02/09/18 19:33 19:47 19:48 WBC RBC Hgb Hct MCV MCH MCHC RDW Plt Count MPV Neut % (Auto) Lymph % (Auto) [place] % (Auto) Eos % (Auto) Baso % (Auto) Neut # (Auto) Lymph # (Auto) [place] # (Auto) Eos # (Auto) Baso # (Auto) WBC Differential Differential Comment PT INR Puncture Site Right radial Patient Temperature 98.6 O2 Saturation 98 ABG pH 7.44 H ABG pCO2 21 L* ABG pO2 257 H ABG HCO3 14 L* ABG O2 Content 13.0 ABG Base Excess -9.2 L ABG Methemoglobin 0.5 Richie Test Present Hemoglobin 9.0 L Carboxyhemoglobin 1.4 O2 Delivery Device Ventilator Vent Setting Vac/16/550/+5 Inspired O2 50 Critical Value Yes Sodium Potassium Chloride Carbon Dioxide Anion Gap BUN Creatinine Estimated GFR POC Glucose Random Glucose Lactic Acid 5.2 H* Calcium Calcium Adj for Albumin Phosphorus Magnesium Total Bilirubin AST ALT Alkaline Phosphatase Ammonia Total Protein Albumin Nasal Screen MRSA (PCR) Blood Type O Positive Blood Type Recheck Required Antibody Screen Negative MTS Gel Crossmatch 02/09/18 02/09/18 02/09/18 19:54 20:20 22:24 WBC RBC Hgb Hct MCV MCH MCHC RDW Plt Count MPV Neut % (Auto) Lymph % (Auto) [place] % (Auto) Eos % (Auto) Baso % (Auto) Neut # (Auto) Lymph # (Auto) [place] # (Auto) Eos # (Auto) Baso # (Auto) WBC Differential Differential Comment PT INR Puncture Site Right radial Patient Temperature 98.6 O2 Saturation 98 ABG pH 7.43 H ABG pCO2 20 L* ABG pO2 252 H ABG HCO3 13 L* ABG O2 Content 12.0 ABG Base Excess -10.3 L ABG Methemoglobin 1.3 Richie Test Present Hemoglobin 8.3 L Carboxyhemoglobin 1.3 O2 Delivery Device Ventilator Vent Setting Prvc/ac Inspired O2 50 Critical Value Yes Sodium Potassium Chloride Carbon Dioxide Anion Gap BUN Creatinine Estimated GFR POC Glucose 74 86 Random Glucose Lactic Acid Calcium Calcium Adj for Albumin Phosphorus Magnesium Total Bilirubin AST ALT Alkaline Phosphatase Ammonia Total Protein Albumin Nasal Screen MRSA (PCR) Blood Type Blood Type Recheck Antibody Screen MTS Gel Crossmatch 02/09/18 02/10/18 02/10/18 23:00 00:50 01:04 WBC RBC Hgb Hct MCV MCH MCHC RDW Plt Count MPV Neut % (Auto) Lymph % (Auto) [place] % (Auto) Eos % (Auto) Baso % (Auto) Neut # (Auto) Lymph # (Auto) [place] # (Auto) Eos # (Auto) Baso # (Auto) WBC Differential Differential Comment PT INR Puncture Site Right radial Patient Temperature 98.6 O2 Saturation 98 ABG pH 7.42 ABG pCO2 21 L* ABG pO2 209 H ABG HCO3 13 L* ABG O2 Content 12.3 ABG Base Excess -10.6 L ABG Methemoglobin 1.2 Richie Test Present Hemoglobin 8.6 L Carboxyhemoglobin 1.2 O2 Delivery Device Ventilator Vent Setting Prvc/ac 10 [id number] Inspired O2 40 Critical Value Yes Sodium Potassium Chloride Carbon Dioxide Anion Gap BUN Creatinine Estimated GFR POC Glucose 75 Random Glucose Lactic Acid Calcium Calcium Adj for Albumin Phosphorus Magnesium Total Bilirubin AST ALT Alkaline Phosphatase Ammonia Total Protein Albumin Nasal Screen MRSA (PCR) Not detected Blood Type Blood Type Recheck Antibody Screen MTS Gel Crossmatch 02/10/18 02/10/18 02/10/18 02:52 02:52 02:52 WBC 13.4 H RBC 2.55 L Hgb 7.9 L D Hct 24.4 L MCV 96.0 MCH 31.2 MCHC 32.5 RDW 14.1 Plt Count 146 L MPV 9.5 Neut % (Auto) 91.7 H Lymph % (Auto) 2.9 L [place] % (Auto) 5.0 Eos % (Auto) 0.1 Baso % (Auto) 0.3 Neut # (Auto) 12.3 H Lymph # (Auto) 0.4 L [place] # (Auto) 0.7 Eos # (Auto) 0.0 Baso # (Auto) 0.0 WBC Differential . Differential Comment Auto diff final PT 12.9 H INR 1.3 Puncture Site Patient Temperature O2 Saturation ABG pH ABG pCO2 ABG pO2 ABG HCO3 ABG O2 Content ABG Base Excess ABG Methemoglobin Richie Test Hemoglobin Carboxyhemoglobin O2 Delivery Device Vent Setting Inspired O2 Critical Value Sodium 147 H Potassium 3.6 Chloride 120 H Carbon Dioxide 15.2 L Anion Gap 12 BUN 26 H Creatinine 1.24 Estimated GFR 59 L POC Glucose Random Glucose 70 L Lactic Acid Calcium 7.3 L* Calcium Adj for Albumin 8.8 Phosphorus 3.5 Magnesium 1.4 L Total Bilirubin 0.5 AST 71 H ALT 21 Alkaline Phosphatase 59 Ammonia Total Protein 5.1 L D Albumin 2.1 L D Nasal Screen MRSA (PCR) Blood Type Blood Type Recheck Antibody Screen MTS Gel Crossmatch 02/10/18 02/10/18 02/10/18 03:45 05:33 06:45 WBC RBC Hgb Hct MCV MCH MCHC RDW Plt Count MPV Neut % (Auto) Lymph % (Auto) [place] % (Auto) Eos % (Auto) Baso % (Auto) Neut # (Auto) Lymph # (Auto) [place] # (Auto) Eos # (Auto) Baso # (Auto) WBC Differential Differential Comment PT INR Puncture Site Right brachial Patient Temperature 98.6 O2 Saturation 97 ABG pH 7.40 ABG pCO2 26 L ABG pO2 156 H ABG HCO3 16 L* ABG O2 Content 10.4 L ABG Base Excess -7.9 L ABG Methemoglobin 1.0 Richie Test Present Hemoglobin 7.3 L* Carboxyhemoglobin 1.4 O2 Delivery Device Ventilator Vent Setting Prvc/ac 10 [id number] Inspired O2 30 Critical Value Yes Sodium Potassium Chloride Carbon Dioxide Anion Gap BUN Creatinine Estimated GFR POC Glucose 95 Random Glucose Lactic Acid 5.1 H* Calcium Calcium Adj for Albumin Phosphorus Magnesium Total Bilirubin AST ALT Alkaline Phosphatase Ammonia Total Protein Albumin Nasal Screen MRSA (PCR) Blood Type Blood Type Recheck Antibody Screen MTS Gel Crossmatch 02/10/18 02/10/18 02/10/18 11:58 14:03 14:35 WBC RBC Hgb Hct MCV MCH MCHC RDW Plt Count MPV Neut % (Auto) Lymph % (Auto) [place] % (Auto) Eos % (Auto) Baso % (Auto) Neut # (Auto) Lymph # (Auto) [place] # (Auto) Eos # (Auto) Baso # (Auto) WBC Differential Differential Comment PT INR Puncture Site Patient Temperature O2 Saturation ABG pH ABG pCO2 ABG pO2 ABG HCO3 ABG O2 Content ABG Base Excess ABG Methemoglobin Richie Test Hemoglobin Carboxyhemoglobin O2 Delivery Device Vent Setting Inspired O2 Critical Value Sodium Potassium Chloride Carbon Dioxide Anion Gap BUN Creatinine Estimated GFR POC Glucose 90 Random Glucose Lactic Acid Calcium Calcium Adj for Albumin Phosphorus Magnesium 1.8 Total Bilirubin AST ALT Alkaline Phosphatase Ammonia Total Protein Albumin Nasal Screen MRSA (PCR) Blood Type Blood Type Recheck Antibody Screen MTS Gel Crossmatch See Detail 02/10/18 02/10/18 02/10/18 14:35 14:35 14:35 WBC 7.1 RBC 1.98 L Hgb 6.2 L* Hct 18.8 L* MCV 95.2 MCH 31.2 MCHC 32.8 RDW 14.3 Plt Count 93 L D MPV 9.1 Neut % (Auto) Lymph % (Auto) [place] % (Auto) Eos % (Auto) Baso % (Auto) Neut # (Auto) Lymph # (Auto) [place] # (Auto) Eos # (Auto) Baso # (Auto) WBC Differential Differential Comment PT INR Puncture Site Patient Temperature O2 Saturation ABG pH ABG pCO2 ABG pO2 ABG HCO3 ABG O2 Content ABG Base Excess ABG Methemoglobin Richie Test Hemoglobin Carboxyhemoglobin O2 Delivery Device Vent Setting Inspired O2 Critical Value Sodium 147 H Potassium 3.3 L Chloride 116 H Carbon Dioxide 19.9 L Anion Gap 11 BUN 24 H Creatinine 1.00 Estimated GFR 75 L POC Glucose Random Glucose 91 Lactic Acid 3.6 H Calcium 6.8 L* Calcium Adj for Albumin 8.5 Phosphorus Magnesium Total Bilirubin 0.4 AST 81 H ALT 26 Alkaline Phosphatase 43 L Ammonia Total Protein 4.4 L D Albumin 1.9 L Nasal Screen MRSA (PCR) Blood Type Blood Type Recheck Antibody Screen MTS Gel Crossmatch 02/10/18 02/10/18 15:55 Unknown WBC RBC Hgb Hct MCV MCH MCHC RDW Plt Count MPV Neut % (Auto) Lymph % (Auto) [place] % (Auto) Eos % (Auto) Baso % (Auto) Neut # (Auto) Lymph # (Auto) [place] # (Auto) Eos # (Auto) Baso # (Auto) WBC Differential Differential Comment PT INR Puncture Site Patient Temperature O2 Saturation ABG pH ABG pCO2 ABG pO2 ABG HCO3 ABG O2 Content ABG Base Excess ABG Methemoglobin Richie Test Hemoglobin Carboxyhemoglobin O2 Delivery Device Vent Setting Inspired O2 Critical Value Sodium Potassium Chloride Carbon Dioxide Anion Gap BUN Creatinine Estimated GFR POC Glucose Random Glucose Lactic Acid 6.8 H* Calcium Calcium Adj for Albumin Phosphorus Magnesium Total Bilirubin AST ALT Alkaline Phosphatase Ammonia Total Protein Albumin Nasal Screen MRSA (PCR) Blood Type Blood Type Recheck Antibody Screen MTS Gel Crossmatch See Detail - Imaging Impressions Chest X-Ray 02/09/18 16:54 CONCLUSION: 1. Interval intubation and placement of nasogastric tube. 2. No acute cardiopulmonary disease. Head CT 02/09/18 16:54 CONCLUSION: 1. Acute subdural hematoma involving the right temporoparietal region measuring 5 mm in width. No significant midline shift is noted. 2. Subgaleal hematoma is noted along the right parietal skull. . Cervical Spine CT 02/09/18 20:32 CONCLUSION: 1. Negative trauma CT. Abdomen/Bladder Ultrasound 02/10/18 00:00 CONCLUSION: 1. Mild right hydronephrosis. 2. Distended urinary bladder with avascular debris along the dependent aspect. Given the clinical history this could represent blood clot. Consider follow-up to confirm resolution. There is no blood flow in this structure to suggest that it represents a mass. 3. Montemayor catheter is likely misplaced potentially in the posterior/prostatic urethra. It is not visualized within the bladder and urinary bladder is distended. Head CT 02/10/18 06:00 CONCLUSION: 1. Stable right temporal parietal subdural hematoma. 2. No new findings. . Assessment and Plan - Plan sp fall resulted in subdural hematoma BPH, urinary retention, montemayor trauma High grade enterococcaul bactremia, sepsis [facility] 2/2 UTI in the settings of urinary retention with BPH othre source ounfd be endocartditis however pt has no clinical findings sugg of endocarditis and has alternative diagnosis sepsis HIgh lactic acidosis, worsening Pt is critically ill unstable Hematuria cont current abx repaet BC CT A/P lactic acid urologist f/u geremias Maya
[2018-02-10 20:09] LABS: Hemoglobin 10.2 gm/dL (13.0-17.0); Mean Corpuscular HGB Conc 32.9 % (32.0-36.0); Mean Corpuscular Hemoglobin 30.8 pg (27.0-34.0); Mean Corpuscular Volume 93.7 fL (80.0-100.0); Mean Platelet Volume 9.4 fL (7.0-11.0); Platelet Count 113 th/mm3 (150-450); Red Blood Count 3.31 mil/mm3 (4.50-5.90); Red Cell Distribution Width 14.2 % (11.6-17.2); White Blood Count 14.1 th/mm3 (4.0-11.0)
[2018-02-10 20:31] LABS: Lymphocytes 5 % (9-44); Metamyelocytes 1 % (0-1); Monocytes 7 % (0-8)
[2018-02-10 20:32] LABS: Platelet Morphology Normal (Normal); RBC Morphology Normal (Normal); Toxic Vacuolation Present
[2018-02-10] MEDS: Thiamine Inj 100 MG in Sodium Chlor 0.9% Inj 100 ML IV.SIG SCH (21:19)
--- NOTE | 2018-02-10 22:07 | CT ---
EXAM DATE: 02/10/2018 9:48 PM EST AGE/SEX: 62 years / Male INDICATIONS: Abdominal distention, hematuria. CLINICAL DATA: This is the patient's initial encounter. Patient reports that signs and symptoms have been present for 1 day and indicates a pain score of Nonresponsive. MEDICAL/SURGICAL HISTORY: Non-responsive. Non-responsive. RADIATION DOSE: 9.10 CTDI (mGy) COMPARISON: [facility] [place], CT ABDOMEN & PELVIS W/O CONTRAST, 12/02/2017. . TECHNIQUE: Multiple contiguous axial images were obtained through the abdomen. Images were obtained using multiple row detector helical technique. Using automated exposure control and adjustment of the mA and/or kV according to patient size, radiation dose was kept as low as reasonably achievable to o btain optimal diagnostic quality images. DICOM format image data is available electronically for rev iew and comparison. FINDINGS: Lower Lungs: Atelectasis at the dependent portions of the lung bases. Liver: Cholecystectomy clips in the gallbladder fossa. Liver is homogeneous and within normal limits. Spleen: Homogeneous density without enlargement. Pancreas: Unremarkable without mass or calcification. Kidneys: Bilateral perinephric stranding that is more prominent than on the comparison study of 2017. Mild prominence of the proximal renal collecting systems, new finding when compared to the prior study. No evidence of hydroureter. No calculi identified. 1 cm medial right upper pole exophyti c mass unchanged, likely representing a cyst. Adrenal Glands: Unremarkable. Aorta: Extensive calcification. Diameter within normal limits. Bowel/Mesentery: Nasogastric tube in place. No evidence of bowel dilatation. No free air or free flu id. Appendix within normal limits. Abdominal Wall: Intact. Retroperitoneum: No evidence of adenopathy in the retrocrural, para-aortic, or deep pelvic regions. Bladder: Bladder is markedly distended with gas in the nondependent portion of the bladder. Reproductive Organs: Prostate is enlarged measuring 5.4 cm in transverse dimension. Inguinal: The inguinal region is unremarkable without evidence of adenopathy. Bony Structures: A call report for review and the patient's name is Desirae vidal Perineal Region: There is gas in the soft tissues of the perineal region bilaterally adjacent to the urethra and just anterior to the rectum/anus. Cespedes catheter in place in the penile urethra but deviates to the left and extends into the extra lum inal perineal soft tissues. Balloon is outside of the ureter. There is gas in the ureter. Urinary lico dder is markedly distended with gas seen in the nondependent portion of the bladder. CONCLUSION: 1. Extension of Cespedes catheter outside of the urethral lumen into the left sided perineal soft tissu es. Findings indicate traumatic perforation of the urethra. There is gas in the surrounding perineal soft tissues. The Cespedes catheter balloon is inflated in this region outside of the urethral lumen. 2. Distended urinary bladder. 3. Mild prominence of the proximal renal collecting systems without shanelle hydronephrosis. 4. Enlarged prostate. 5. Findings were discussed with the patient's nurse. Electronically signed by: Fred Farris MD Board Certified Radiologist 02/10/2018 10:05 PM EST
[2018-02-10] MEDS: Vancomycin Inj 1,250 MG in Sodium Chlor 0.9% Inj 250 ML IV.SIG SCH (22:25)
[2018-02-10] MEDS ORDERED: Lidocaine 1% Inj 50 ML Vial ONE (23:15)
--- NOTE | 2018-02-11 00:14 | P.PNURO ---
Subjective Patient symptoms today: Patient with catheter in urethra, nursing unable to advance. CT scan identified large bladder with montemayor balloon in urethra with tip in false passage. Patient is intubated and sedated. Objective Vital Signs: Vital Signs 02/10/18 00:14 02/10/18 00:17 02/10/18 00:19 Temperature Pulse Rate 113 H 111 H Respiratory Rate 25 H 25 H 24 Blood Pressure 105/71 Pulse Oximetry 100 100 02/10/18 00:34 02/10/18 00:49 02/10/18 01:00 Temperature Pulse Rate 111 H 110 H 109 H Respiratory Rate 24 23 25 H Blood Pressure 113/68 104/64 Pulse Oximetry 100 100 100 02/10/18 01:10 02/10/18 01:19 02/10/18 01:34 Temperature Pulse Rate 107 H 107 H 106 H Respiratory Rate 23 24 24 Blood Pressure 98/62 L 97/62 L 100/66 Pulse Oximetry 100 100 100 02/10/18 01:49 02/10/18 02:00 02/10/18 02:04 Temperature Pulse Rate 104 H 103 H 103 H Respiratory Rate 24 23 23 Blood Pressure 101/66 93/57 L Pulse Oximetry 97 97 98 02/10/18 02:19 02/10/18 02:34 02/10/18 02:49 Temperature Pulse Rate 102 H 99 H 99 H Respiratory Rate 22 20 Blood Pressure 95/59 L 95/61 L 90/62 L Pulse Oximetry 100 100 100 02/10/18 03:00 02/10/18 03:12 02/10/18 03:15 Temperature Pulse Rate 97 H 99 H Respiratory Rate 18 18 18 Blood Pressure Pulse Oximetry 98 99 02/10/18 03:39 02/10/18 04:00 02/10/18 04:16 Temperature 98.3 F Pulse Rate 100 H 97 H 100 H Respiratory Rate 16 12 Blood Pressure 123/73 89/59 L Pulse Oximetry 100 97 99 02/10/18 04:46 02/10/18 05:00 02/10/18 05:16 Temperature Pulse Rate 97 H 97 H 94 H Respiratory Rate 16 0 L Blood Pressure 110/66 98/67 L Pulse Oximetry 100 100 02/10/18 05:46 02/10/18 06:00 02/10/18 06:16 Temperature Pulse Rate 92 H 92 H 94 H Respiratory Rate 16 0 L Blood Pressure 85/59 L 94/63 L Pulse Oximetry 100 100 100 02/10/18 06:46 02/10/18 07:00 02/10/18 07:16 Temperature Pulse Rate 90 92 H 93 H Respiratory Rate 10 L 10 L 10 L Blood Pressure 91/60 L 109/68 Pulse Oximetry 100 100 100 02/10/18 07:44 02/10/18 07:46 02/10/18 08:00 Temperature Pulse Rate 91 H 92 H 93 H Respiratory Rate 15 0 L 10 L Blood Pressure 88/59 L Pulse Oximetry 100 100 100 02/10/18 08:16 02/10/18 08:46 02/10/18 09:00 Temperature Pulse Rate 95 H 98 H 99 H Respiratory Rate 11 L 10 L 12 Blood Pressure 90/52 L 121/74 Pulse Oximetry 100 100 100 02/10/18 09:16 02/10/18 09:46 02/10/18 10:00 Temperature Pulse Rate 100 H 103 H 104 H Respiratory Rate 12 13 15 Blood Pressure 111/70 107/58 L Pulse Oximetry 100 100 100 02/10/18 10:16 02/10/18 10:46 02/10/18 11:00 Temperature Pulse Rate 103 H 104 H 105 H Respiratory Rate 14 14 13 Blood Pressure 100/59 L 92/57 L Pulse Oximetry 100 100 100 02/10/18 11:16 02/10/18 11:37 02/10/18 11:46 Temperature Pulse Rate 109 H 110 H 109 H Respiratory Rate 18 12 15 Blood Pressure 99/60 L 91/59 L Pulse Oximetry 100 100 100 02/10/18 12:00 02/10/18 12:16 02/10/18 12:17 Temperature 100.6 F H Pulse Rate 111 H 108 H 108 H Respiratory Rate 14 10 L 10 L Blood Pressure 88/52 L 86/53 L Pulse Oximetry 100 100 100 02/10/18 12:46 02/10/18 12:55 02/10/18 13:00 Temperature Pulse Rate 102 H 100 H 100 H Respiratory Rate 10 L 7 L 8 L Blood Pressure 88/54 L 86/50 L Pulse Oximetry 100 100 100 02/10/18 13:15 02/10/18 13:16 02/10/18 13:28 Temperature Pulse Rate 100 H 98 H 97 H Respiratory Rate 9 L 8 L 9 L Blood Pressure 84/53 L 88/55 L 94/70 L Pulse Oximetry 100 100 100 02/10/18 13:46 02/10/18 14:00 02/10/18 14:07 Temperature Pulse Rate 101 H 96 H 105 H Respiratory Rate 20 11 L 16 Blood Pressure 104/67 122/62 Pulse Oximetry 100 100 100 02/10/18 14:16 02/10/18 14:46 02/10/18 15:00 Temperature Pulse Rate 99 H 104 H 104 H Respiratory Rate 12 11 L 13 Blood Pressure 105/57 L 95/59 L Pulse Oximetry 100 100 100 02/10/18 15:16 02/10/18 15:39 02/10/18 15:44 Temperature 99.8 F H Pulse Rate 100 H 100 H 99 H Respiratory Rate 11 L 10 L 15 Blood Pressure 86/55 L 86/55 L Pulse Oximetry 100 100 100 02/10/18 15:46 02/10/18 15:55 02/10/18 16:00 Temperature 98.8 F 99.8 F H Pulse Rate 101 H 102 H 101 H Respiratory Rate 11 L 10 L 11 L Blood Pressure 88/55 L 127/60 Pulse Oximetry 100 100 100 02/10/18 16:20 18 16:46 02/10/18 17:00 Temperature Pulse Rate 103 H 103 H 100 H Respiratory Rate 12 12 12 Blood Pressure 127/60 129/58 L Pulse Oximetry 100 100 100 02/10/18 17:16 18 17:27 02/10/18 17:46 Temperature 99.8 F H Pulse Rate 102 H 101 H 101 H Respiratory Rate 15 10 L 13 Blood Pressure 124/57 L 124/57 L 116/57 L Pulse Oximetry 100 100 100 02/10/18 18:00 02/10/18 18:16 02/10/18 18:46 Temperature Pulse Rate 98 H 97 H 96 H Respiratory Rate 9 L 10 L 13 Blood Pressure 131/62 112/56 L Pulse Oximetry 100 100 100 02/10/18 19:00 02/10/18 19:16 18 19:46 Temperature Pulse Rate 95 H 96 H 98 H Respiratory Rate 15 14 15 Blood Pressure 135/63 138/73 Pulse Oximetry 100 100 100 02/10/18 19:49 02/10/18 19:50 02/10/18 21:22 Temperature Pulse Rate 98 H Respiratory Rate 9 L 9 L Blood Pressure Pulse Oximetry 100 100 02/10/18 23:54 02/10/18 23:55 Temperature Pulse Rate 85 Respiratory Rate 12 12 Blood Pressure Pulse Oximetry 100 Intake & Output 02/10/18 02/10/18 02/11/18 06:59 18:59 06:59 Intake Total 5643 / 5643 3955 / 3955 1256 / 1256 Output Total 50 / 50 1500 / 1500 Balance 5593 / 5593 2455 / 2455 1256 / 1256 Weight 68.3 kg Intake: IV 5643 / 5643 3555 / 3555 1256 / 1256 Normosol-R pH 7.4 Inj 1,000 ML 1000 / 1000 @ 125 mls/hr IV.CONT .Q8H JOY Rx#:[id number] Diprivan 1000 mg/100 ml Inj 1, 100 / 100 000 mg In 100 ml @ 5 MCG/KG/MIN 2.517 mls/hr IV.CONT TITRATE PRN Rx#:[id number] NS Inj 1,000 ML @ 125 mls/hr IV 500 / 500 .CONT .Q8H JOY Rx#:[id number] Sodium Bicarbonate 8.4% Inj 150 1000 / 1000 MEQ In D5W Inj 850 ML @ 125 mls/hr IV.CONT .Q8H JOY Rx#: [id number] Flexbumin 25% Inj 100 ML @ 60 100 / 100 mls/hr IV.SIG ONCE ONE Rx#: [id number] Maxipime Inj 2,000 MG In NS Inj 100 / 100 100 ML @ 200 mls/hr IV.SIG ONCE ONE Rx#:[id number] Magnesium Sulfate Inj 2 GM In 100 / 100 NS Inj 96 ML @ 50 mls/hr IV.SIG UNSCH PRN Rx#:[id number] Zosyn 3.375 GM Premix 3.375 gm 100 / 100 100 / 100 50 / 50 In 50 ml @ 100 mls/hr IV.SIG Q6H JOY Rx#:[id number] NS Inj 2,000 ML @ Wide Open IV. 4000 / 4000 2000 / 2000 SIG BOLUS ONE Rx#:[id number] NS Inj 250 ML @ 15 mls/hr IV. 250 / 250 SIG ONCE JOY Rx#:[id number] Thiamine Inj 100 MG In NS Inj 101 / 101 101 / 101 100 ML @ 100 mls/hr IV.SIG Q24H [facility] Rx#:[id number] Vancomycin Inj 2,100 MG In NS 542 / 542 Inj 500 ML @ 250 mls/hr IV.SIG ONCE ONE Rx#:[id number] Keppra 1000 mg/100 mL Premix 100 / 100 100 ML @ 400 mls/hr IV.SIG ONCE ONE Rx#:[id number] Keppra Inj 500 MG In NS Inj 100 105 / 105 105 / 105 ML @ 400 mls/hr IV.SIG Q12H [facility] Rx#:[id number] Intake (Blood Product) Amt 400 / 400 Rbc As-3 Leukoreduced Unit 0 / 0 [id number] Rbc As-3 Leukoreduced Unit 400 / 400 [id number] Output: Urine Amount (Catheter) 1450 / 1450 3-way Urethral 1450 / 1450 Gastric Drainage 50 / 50 50 / 50 Pre-Hospital Oral Orogastric 50 / 50 50 / 50 Tube Other: Bladder Irrigation Fluid - Amount Instilled 3-way Urethral 3,000 3,000 Bladder Irrigation Fluid - Amount Drained 3-way Urethral 4,350 4,450 Date of Last Bowel Movement 02/09/18 02/09/18 # Bowel Movements 0 Weight On Admission 65.4 kg Result Diagrams: 02/10/18 19:48 02/10/18 14:35 Imaging: Impressions Abdomen/Bladder Ultrasound 02/10/18 00:00 CONCLUSION: 1. Mild right hydronephrosis. 2. Distended urinary bladder with avascular debris along the dependent aspect. Given the clinical history this could represent blood clot. Consider follow-up to confirm resolution. There is no blood flow in this structure to suggest that it represents a mass. 3. Montemayor catheter is likely misplaced potentially in the posterior/prostatic urethra. It is not visualized within the bladder and urinary bladder is distended. Head CT 02/10/18 06:00 CONCLUSION: 1. Stable right temporal parietal subdural hematoma. 2. No new findings. . Abdomen/Pelvis CT 02/10/18 18:49 CONCLUSION: 1. Extension of Montemayor catheter outside of the urethral lumen into the left sided perineal soft tissues. Findings indicate traumatic perforation of the urethra. There is gas in the surrounding perineal soft tissues. The Montemayor catheter balloon is inflated in this region outside of the urethral lumen. 2. Distended urinary bladder. 3. Mild prominence of the proximal renal collecting systems without shanelle hydronephrosis. 4. Enlarged prostate. 5. Findings were discussed with the patient's nurse. Medications and IVs: Active Medications Generic Name Dose Route Start Last Admin Trade Name Freq PRN Reason Stop Dose Admin Acetaminophen 650 mg 02/09/18 19:31 02/10/18 11:41 Tylenol PO 650 mg Q6H PRN Administration PAIN 1-10 AND/OR FEVER >101F Al Hydroxide/Mg Hydroxide 30 ml 02/09/18 19:31 Milk Of Magnesia Liq PO Q12H PRN Mild Constipation Albuterol 1 ampul 02/09/18 19:31 Duoneb Neb (Prn) NEB Q2HR NEB PRN WHEEZING Albuterol 1 ampul 02/09/18 20:00 02/10/18 23:55 Duoneb Neb (Joy) NEB 1 ampul Q4HR NEB JOY Administration Bisacodyl 10 mg 02/09/18 19:31 Dulcolax Supp RECTAL DAILY PRN SEVERE CONSITIPATION Chlorhexidine Gluconate 3 pack 02/10/18 04:00 02/10/18 03:37 Chlorhexidine 2% Cloth TOPICAL 02/15/18 03:59 3 pack DAILY@0400 JOY Administration Chlorhexidine Gluconate 3 pack 02/10/18 04:00 Chlorhexidine 2% Cloth TOPICAL 02/15/18 03:59 DAILY@0400 PRN Extra cloth needed Chlorhexidine Gluconate 15 ml 02/09/18 20:00 02/10/18 20:15 Peridex 0.12% Oral Kit OROPHARYNG 15 ml BID@0800,2000 JOY Administration Famotidine 20 mg 02/09/18 21:00 02/10/18 20:15 Pepcid PO 20 mg BID JOY Administration Famotidine 20 mg 02/09/18 21:00 02/10/18 20:15 Pepcid Pf Inj IV.PUSH 20 mg Q12HR OJY Administration Levetiracetam 500 mg/ Sodium 105 mls @ 400 mls/hr 02/10/18 08:00 02/10/18 20: 30 Chloride IV.SIG Infused Q12H JOY Infusion Piperacillin/Tazobactam/Dextrose 3.375 gm in 50 mls @ 100 mls/hr 02/09/18 20: 00 02/10/18 20:45 Zosyn 3.375 Gm Premix IV.SIG Infused Q6H JOY Infusion Magnesium Sulfate 4 gm/ Sodium 100 mls @ 50 mls/hr 02/09/18 19:31 Chloride IV.SIG UNSCH PRN For Magnesium 0.9 - 1.1 mg/dL Potassium Chloride 40 meq in 100 mls @ 25 mls/hr 02/09/18 19:31 Kcl 40 Meq Premix Inj IV.SIG Q2H PRN For Potassium 2.8 - 3.2 mEq/L Potassium Chloride 20 meq in 100 mls @ 50 mls/hr 02/09/18 19:31 Kcl 20 Meq Premix Inj IV.SIG Q2H PRN For Potassium 3.3 - 3.5 mEq/L Potassium Chloride 40 meq in 100 mls @ 25 mls/hr 02/09/18 19:31 Kcl 40 Meq Premix Inj IV.SIG UNSCH PRN For Potassium 3.3 - 3.5 mEq/L Potassium Phosphate 30 mmol/ 260 mls @ 42 mls/hr 02/09/18 19:31 Sodium Chloride IV.SIG UNSCH PRN SEE LABEL COMMENTS Sodium Phosphate 30 mmol/ 260 mls @ 42 mls/hr 02/09/18 19:31 Sodium Chloride IV.SIG UNSCH PRN For Phosphorus < 2.5 mg/dL Magnesium Sulfate 2 gm/ Sodium 100 mls @ 50 mls/hr 02/09/18 19:31 02/10/18 11 :53 Chloride IV.SIG Infused UNSCH PRN Infusion For Magnesium 1.2 - 1.6 mg/dL Potassium Chloride 20 meq in 100 mls @ 50 mls/hr 02/09/18 19:31 Kcl 20 Meq Premix Inj IV.SIG Q2H PRN For Potassium 2.8 - 3.2 mEq/L Fentanyl 2,500 mcg in 250 mls @ 5 mls/hr 02/09/18 19:37 02/10/18 14:12 Fentanyl 10 Mcg/Ml Premix Drip IV.SIG 50 mcg/hr TITRATE PRN 5 mls/hr Per Protocol Titration Protocol 50 MCG/HR Propofol 1,000 mg in 100 mls @ 2.517 mls/hr 02/09/18 19:38 02/10/18 14:13 Diprivan 1000 Mg/100 Ml Inj IV.CONT 15 mcg/kg/min TITRATE PRN 7.55 mls/hr Per Protocol Titration Protocol 5 MCG/KG/MIN Thiamine HCl 100 mg/ Sodium 101 mls @ 100 mls/hr 02/09/18 21:00 02/10/18 22: 23 Chloride IV.SIG Infused Q24H JOY Infusion Vancomycin HCl 1,250 mg/ 262.5 mls @ 250 mls/hr 02/10/18 23:00 02/10/18 22:25 Sodium Chloride IV.SIG 250 mls/hr Q24H JOY Administration Parenteral Electrolytes 1,000 mls @ 125 mls/hr 02/10/18 13:45 02/10/18 23:44 Normosol-R Ph 7.4 Inj IV.CONT 125 mls/hr .Q8H JOY Administration Sodium Chloride 250 mls @ 15 mls/hr 02/10/18 14:00 02/10/18 18:45 Ns Inj IV.SIG 02/11/18 06:39 Infused ONCE JOY Infusion Lactulose 30 ml 02/09/18 19:31 Lactulose Liq PO DAILY PRN SEVERE CONSITIPATION Lorazepam 1 mg 02/10/18 01:43 Ativan Inj IV.PUSH Q2H PRN VENTILATOR CONTROL Magnesium Oxide 800 mg 02/09/18 19:31 Mag-Ox PO UNSCH PRN For Magnesium 1.2 - 1.6 mg/dL Miscellaneous Information 0 each 02/12/18 22:45 [facility] Ordered Lab Info OTHER 02/12/18 22:46 ONCE ONE Miscellaneous Medication 1 each 02/10/18 00:00 02/10/18 16:12 OROPHARYNG 1 each 0000,0400,1200,1600 JOY Administration Ondansetron HCl 4 mg 02/09/18 19:31 Zofran Inj IV.PUSH Q6H PRN NAUSEA OR VOMITING Pharmacy Profile Note 1 each 02/09/18 19:26 Vancomycin Consult Pharmacy OTHER UNSCH PRN Pharmacy to dose Potassium Bicarb/Potassium Chloride 50 meq 02/09/18 19:31 K-Lyte Cl Eff PO UNSCH PRN For Potassium 3.3 - 3.5 mEq/L Potassium Phosphate 2,000 mg 02/09/18 19:31 K-Phos Original PO Q4H PRN Phosphorus Less Than 2.5 mg/dL Potassium Phosphate 2,000 mg 02/09/18 19:31 K-Phos Original PO UNSCH PRN SEE LABEL COMMENTS Senna/Docusate Sodium 1 tab 02/09/18 21:00 02/10/18 20:15 Esperanza-Colace PO 1 tab BID JOY Administration Sennosides 17.2 mg 02/09/18 19:31 Senokot PO Q12H PRN Moderate Constipation Sodium Chloride 2 ml 02/09/18 21:00 02/10/18 20:15 Ns Flush IV.FLUSH 2 ml BID JOY Administration Sodium Chloride 2 ml 02/09/18 19:31 Ns Flush IV.FLUSH PRN PRN FLUSH AFTER USING IV ACCESS Tamsulosin HCl 0.4 mg 02/10/18 09:00 02/10/18 07:59 Flomax PO 0.4 mg DAILY JOY Administration Objective Remarks: Current three way montemayor catheter in place with CBI running with light red urine noted. Circumcised phallus, normal urethral meatus Assessment and Plan - Plan Indwelling urethral catheter removed, attempted placement of coude catheter unsuccessful. Wire and 16Fr caddo catheter was successfully able to be placed in the bladder with clear yellow urine return. 30cc inflated in balloon. -DO NOT REMOVE MONTEMAYOR. DIFFICULT CATHETER PLACEMENT WITH URETHRAL FALSE PASSAGE. -Maintain montemayor catheter until patient is discharged, with urology followup in clinic for catheter removal and voiding trial. 30cc in catheter balloon. -Please call with questions
[2018-02-11] MEDS: Oral Hygiene Kit OROPHARYNG SCH ×4 (00:22→18:10)
[2018-02-11] MEDS ORDERED: Dextrose 50% in Water 50 ML Vial IV.PUSH PRN (01:26)
[2018-02-11] MEDS: Piperacil/Tazo 3.375 GM Premix 3.375 GM/50 ML PIGGYBACK IV.SIG SCH ×4 (01:47→20:16)
[2018-02-11] MEDS: Dextrose 50% in Water 50 ML Vial IV.PUSH PRN (01:52)
[2018-02-11] MEDS: Chlorhexidine Gluconate 2% 1 Pack (2 Cloths) TOPICAL SCH (05:04)
[2018-02-11] MEDS: Insulin NovoLOG Aspart Correctional Sugar Inj SQ SCH ×3 (06:27→18:10)
[2018-02-11 07:14] LABS: Baso % (Auto) 0.6 % (0.0-2.0); Eos % (Auto) 0.5 % (0.0-4.0); Hematocrit 26.1 % (39.0-51.0); Hemoglobin 8.9 gm/dL (13.0-17.0); Lymph # (Auto) 0.5 th/mm3 (1.0-4.8); Mean Corpuscular HGB Conc 33.9 % (32.0-36.0); Mean Corpuscular Hemoglobin 31.8 pg (27.0-34.0); Mean Corpuscular Volume 93.9 fL (80.0-100.0); Mean Platelet Volume 9.7 fL (7.0-11.0); Mono # (Auto) 0.3 th/mm3 (0.0-0.9); Mono % (Auto) 3.7 % (0.0-8.0); Neut # (Auto) 6.1 th/mm3 (1.8-7.7); Neut % (Auto) 88.2 % (16.0-70.0); Platelet Count 88 th/mm3 (150-450); Red Blood Count 2.78 mil/mm3 (4.50-5.90); Red Cell Distribution Width 14.7 % (11.6-17.2); White Blood Count 6.9 th/mm3 (4.0-11.0)
[2018-02-11 07:40] LABS: Alanine Aminotransferase 26 U/L (12-78); Albumin 1.8 g/dL (3.4-5.0); Alkaline Phosphatase 53 U/L (45-117); Anion Gap 12 meq/L (5-15); Aspartate Aminotransferase 97 U/L (15-37); Blood Urea Nitrogen 19 mg/dL (7-18); Calcium 6.7 mg/dL (8.5-10.1); Carbon Dioxide 20.5 meq/L (21.0-32.0); Chloride 115 meq/L (98-107); Glomerular Filtration Rate Greater Than 89 mL/min (>89); Glucose,Random 77 mg/dL (74-106); Potassium 3.2 meq/L (3.5-5.1); Sodium 147 meq/L (136-145); Total Protein 4.5 g/dL (6.4-8.2)
[2018-02-11] MEDS: Normosol-R pH 7.4 Inj 1,000 ML IV.CONT SCH ×2 (08:02→13:56)
[2018-02-11] MEDS: Famotidine 20 MG Tablet PO SCH ×2 (08:03→20:17)
[2018-02-11] MEDS: Famotidine PF Inj 20 MG/2 ML Vial IV.PUSH SCH ×2 (08:03→20:16)
[2018-02-11] MEDS: Chlorhexidine 0.12% Oral Kit 15 ML UDC OROPHARYNG SCH ×2 (08:03→20:16)
[2018-02-11] MEDS: Senna/Docusate Sodium 8.6/50 MG Tablet PO SCH ×2 (08:03→20:17)
[2018-02-11] MEDS: Propofol 1000 mg/100 ml Inj 1,000 MG/100 ML BOTTLE IV.CONT PRN (08:04)
[2018-02-11] MEDS: Potassium Chlor 20 mEq Premix 20 MEQ/100 ML PIGGYBACK IV.SIG PRN ×3 (08:04→18:11)
[2018-02-11 08:27] LABS: Eosinophils 1 % (0-4); Lymphocytes 4 % (9-44); Monocytes 1 % (0-8); Platelet Morphology Normal (Normal)
--- NOTE | 2018-02-11 09:49 | P.PNCC ---
Subjective Subjective Remarks/Hospital Course: 02/09: 62yM transferred from [facility] for acute subdural hematoma. As per the patient's records, he is from a nursing facility and presented on 02/08 for altered mental status, subsequently developed fever, tachycardia, and leukocytosis, had a Cespedes catheter placed with balloon likely inflated in posterior urethra and developed hematuria. On 02/09, the patient attempted to get out of bed and fell on the floor, hitting his head; it is unclear in the notes whether he lost consciousness but a CTH showed a 5 mm right subdural hematoma without shift or mass effect. He had a laceration to his right upper forehead which was repaired prior to transfer. He had worsening encephalopathy and was intubated prior to transfer. The patient is currently encephalopathic and intubated, therefore unable to provide any meaningful contribution to HPI. History was therefore obtained from the ED physician and records from [facility]. 02/10: Remains sedated, orally intubated on mechanical ventilation. CBI ongoing for hematuria. Patient has been evaluated by neurosurgery and no intervention planned for subdural hemorrhage. Blood cultures positive for gram- positive cocci 4 out of 4. 02/11: Patient continues to have persistent lactic acidosis, has gram positive bacteremia, also found to have urethral disruption and required replacement of Cespedes by urology overnight. Objective Vital Signs / I&O: Vital Signs 02/10/18 10:00 02/10/18 10:16 02/10/18 10:46 Temperature Pulse Rate 104 H 103 H 104 H Respiratory Rate 15 14 14 Blood Pressure 100/59 L 92/57 L Pulse Oximetry 100 100 100 02/10/18 11:00 02/10/18 11:16 02/10/18 11:37 Temperature Pulse Rate 105 H 109 H 110 H Respiratory Rate 13 18 12 Blood Pressure 99/60 L Pulse Oximetry 100 100 100 02/10/18 11:46 02/10/18 12:00 02/10/18 12:16 Temperature 100.6 F H Pulse Rate 109 H 111 H 108 H Respiratory Rate 15 14 10 L Blood Pressure 91/59 L 88/52 L Pulse Oximetry 100 100 100 02/10/18 12:17 02/10/18 12:46 02/10/18 12:55 Temperature Pulse Rate 108 H 102 H 100 H Respiratory Rate 10 L 10 L 7 L Blood Pressure 86/53 L 88/54 L 86/50 L Pulse Oximetry 100 100 100 02/10/18 13:00 02/10/18 13:15 02/10/18 13:16 Temperature Pulse Rate 100 H 100 H 98 H Respiratory Rate 8 L 9 L 8 L Blood Pressure 84/53 L 88/55 L Pulse Oximetry 100 100 100 02/10/18 13:28 02/10/18 13:46 02/10/18 14:00 Temperature Pulse Rate 97 H 101 H 96 H Respiratory Rate 9 L 20 11 L Blood Pressure 94/70 L 104/67 Pulse Oximetry 100 100 100 02/10/18 14:07 02/10/18 14:16 02/10/18 14:46 Temperature Pulse Rate 105 H 99 H 104 H Respiratory Rate 16 12 11 L Blood Pressure 122/62 105/57 L 95/59 L Pulse Oximetry 100 100 100 02/10/18 15:00 02/10/18 15:16 02/10/18 15:39 Temperature 99.8 F H Pulse Rate 104 H 100 H 100 H Respiratory Rate 13 11 L 10 L Blood Pressure 86/55 L 86/55 L Pulse Oximetry 100 100 100 02/10/18 15:44 02/10/18 15:46 02/10/18 15:55 Temperature 98.8 F Pulse Rate 99 H 101 H 102 H Respiratory Rate 15 11 L 10 L Blood Pressure 88/55 L 127/60 Pulse Oximetry 100 100 100 02/10/18 16:00 02/10/18 16:20 02/10/18 16:46 Temperature 99.8 F H Pulse Rate 101 H 103 H 103 H Respiratory Rate 11 L 12 12 Blood Pressure 127/60 129/58 L Pulse Oximetry 100 100 100 02/10/18 17:00 02/10/18 17:16 02/10/18 17:27 Temperature 99.8 F H Pulse Rate 100 H 102 H 101 H Respiratory Rate 12 15 10 L Blood Pressure 124/57 L 124/57 L Pulse Oximetry 100 100 100 02/10/18 17:46 02/10/18 18:00 02/10/18 18:16 Temperature Pulse Rate 101 H 98 H 97 H Respiratory Rate 13 9 L 10 L Blood Pressure 116/57 L 131/62 Pulse Oximetry 100 100 100 02/10/18 18:46 02/10/18 19:00 02/10/18 19:16 Temperature Pulse Rate 96 H 95 H 96 H Respiratory Rate 13 15 14 Blood Pressure 112/56 L 135/63 Pulse Oximetry 100 100 100 02/10/18 19:46 02/10/18 19:49 02/10/18 19:50 Temperature Pulse Rate 98 H 98 H Respiratory Rate 15 9 L 9 L Blood Pressure 138/73 Pulse Oximetry 100 100 02/10/18 20:00 02/10/18 20:16 02/10/18 20:46 Temperature 99.7 F H Pulse Rate 99 H 103 H 103 H Respiratory Rate 9 L 10 L 10 L Blood Pressure 129/60 124/59 L Pulse Oximetry 100 100 100 02/10/18 21:00 02/10/18 21:16 02/10/18 21:22 Temperature Pulse Rate 100 H 100 H Respiratory Rate 8 L 7 L Blood Pressure 138/74 Pulse Oximetry 100 100 100 02/10/18 21:46 02/10/18 21:54 02/10/18 22:00 Temperature Pulse Rate 97 H 95 H 96 H Respiratory Rate 11 L 16 6 L Blood Pressure 97/47 L 99/49 L Pulse Oximetry 100 100 100 02/10/18 22:16 02/10/18 22:46 02/10/18 23:00 Temperature Pulse Rate 101 H 92 H 89 Respiratory Rate 12 11 L 11 L Blood Pressure 113/57 L 99/65 L Pulse Oximetry 100 100 100 02/10/18 23:16 02/10/18 23:46 02/10/18 23:54 Temperature Pulse Rate 88 86 Respiratory Rate 13 12 12 Blood Pressure 109/58 L 102/55 L Pulse Oximetry 100 100 100 02/10/18 23:55 02/11/18 00:00 02/11/18 00:16 Temperature 98.8 F Pulse Rate 85 90 84 Respiratory Rate 12 11 L 11 L Blood Pressure 87/51 L Pulse Oximetry 100 100 02/11/18 00:46 02/11/18 01:00 02/11/18 01:16 Temperature Pulse Rate 86 83 82 Respiratory Rate 18 10 L 12 Blood Pressure 93/51 L 101/52 L Pulse Oximetry 100 100 100 02/11/18 01:35 02/11/18 01:46 02/11/18 02:00 Temperature Pulse Rate 80 80 Respiratory Rate 12 10 L 10 L Blood Pressure 89/52 L 87/52 L Pulse Oximetry 100 100 100 02/11/18 02:16 02/11/18 02:46 02/11/18 03:00 Temperature Pulse Rate 82 81 81 Respiratory Rate 11 L 11 L 11 L Blood Pressure 102/54 L 101/62 Pulse Oximetry 100 100 100 02/11/18 03:14 02/11/18 03:16 02/11/18 03:46 Temperature Pulse Rate 82 82 89 Respiratory Rate 13 10 L Blood Pressure 134/72 120/59 L Pulse Oximetry 100 100 02/11/18 04:00 02/11/18 04:16 02/11/18 04:18 Temperature 98.5 F Pulse Rate 87 85 Respiratory Rate 10 L 10 L 13 Blood Pressure 115/56 L Pulse Oximetry 99 100 100 02/11/18 04:46 02/11/18 05:00 02/11/18 05:16 Temperature Pulse Rate 82 81 79 Respiratory Rate 10 L 11 L 9 L Blood Pressure 103/55 L 100/54 L Pulse Oximetry 100 100 88 L 02/11/18 05:46 02/11/18 06:00 02/11/18 06:16 Temperature Pulse Rate 77 78 76 Respiratory Rate 10 L 12 11 L Blood Pressure 106/58 L 105/60 Pulse Oximetry 100 99 98 02/11/18 06:46 02/11/18 07:00 02/11/18 07:16 Temperature 98.7 F Pulse Rate 78 76 77 Respiratory Rate 10 L 11 L 10 L Blood Pressure 109/62 112/60 Pulse Oximetry 99 99 98 02/11/18 07:46 02/11/18 08:00 02/11/18 08:16 Temperature Pulse Rate 72 78 77 Respiratory Rate 10 L 10 L 5 L Blood Pressure 110/59 L 111/57 L Pulse Oximetry 97 100 99 02/11/18 08:18 02/11/18 08:46 02/11/18 09:00 Temperature Pulse Rate 76 83 83 Respiratory Rate 7 L 7 L 10 L Blood Pressure 122/57 L Pulse Oximetry 99 95 98 02/11/18 09:16 Temperature Pulse Rate 83 Respiratory Rate 9 L Blood Pressure 128/63 Pulse Oximetry 98 Intake & Output 02/10/18 02/11/18 02/11/18 18:59 06:59 18:59 Intake Total 3955 / 3955 1728.5 / 1728.5 1155 / 1155 Output Total 1500 / 1500 1700 / 1700 Balance 2455 / 2455 28.5 / 28.5 1155 / 1155 Weight 71.2 kg Intake: IV 3555 / 3555 1668.5 / 1668.5 1155 / 1155 Normosol-R pH 7.4 Inj 1,000 ML 1000 / 1000 1000 / 1000 @ 125 mls/hr IV.CONT .Q8H ALEXX Rx#:[id number] Diprivan 1000 mg/100 ml Inj 1, 100 / 100 000 mg In 100 ml @ 5 MCG/KG/MIN 2.517 mls/hr IV.CONT TITRATE PRN Rx#:[id number] Sodium Bicarbonate 8.4% Inj 150 1000 / 1000 MEQ In D5W Inj 850 ML @ 125 mls/hr IV.CONT .Q8H ALEXX Rx#: [id number] Magnesium Sulfate Inj 2 GM In 100 / 100 NS Inj 96 ML @ 50 mls/hr IV.SIG UNSCH PRN Rx#:[id number] Zosyn 3.375 GM Premix 3.375 gm 100 / 100 100 / 100 50 / 50 In 50 ml @ 100 mls/hr IV.SIG Q6H ALEXX Rx#:[id number] NS Inj 2,000 ML @ Wide Open IV. 1999 / 1999 SIG BOLUS ONE Rx#:[id number] NS Inj 250 ML @ 15 mls/hr IV. 250 / 250 SIG ONCE ALEXX Rx#:[id number] Thiamine Inj 100 MG In NS Inj 101 / 101 100 ML @ 100 mls/hr IV.SIG Q24H ALEXX Rx#:[id number] Vancomycin Inj 1,250 MG In NS 262.5 / 262.5 Inj 250 ML @ 250 mls/hr IV.SIG Q24H ALEXX Rx#:[id number] Keppra Inj 500 MG In NS Inj 100 105 / 105 105 / 105 105 / 105 ML @ 400 mls/hr IV.SIG Q12H ALEXX Rx#:[id number] Intake (Blood Product) Amt 400 / 400 Rbc As-3 Leukoreduced Unit 0 / 0 [id number] Rbc As-3 Leukoreduced Unit 400 / 400 [id number] Bladder Irrigation Fluid - 60 / 60 Amount Retained Coude 60 / 60 Output: Urine Amount (Catheter) 1450 / 1450 1650 / 1650 3-way Urethral 1450 / 1450 Coude 1650 / 1650 Gastric Drainage 50 / 50 50 / 50 Pre-Hospital Oral Orogastric 50 / 50 50 / 50 Tube Other: Bladder Irrigation Fluid - Amount Instilled 3-way Urethral 3,000 Coude 120 Bladder Irrigation Fluid - Amount Drained 3-way Urethral 4,450 Coude 60 Date of Last Bowel Movement 02/09/18 02/09/18 # Bowel Movements 0 Result Diagrams: 02/11/18 05:18 02/11/18 05:18 Objective Remarks: GEN: Elderly male, intubated and sedated HEENT: Right forehead laceration unchanged; PERRL NECK: Trachea midline CARDIO: Regular rate and rhythm PULM: Bradypneic, breath sounds clear to auscultation bilaterally ABD/GI: Soft, non-distended, non-tender in all quadrants : Cespedes present with clear urine in bag EXT/MSK: No apparent extremity trauma SKIN: Warm and well-perfused NEURO: GCS 10T ([id number]), RASS -1, opens eyes to voice and follows commands, nods / shakes head to yes/no questions PSYCH: Calm Assessment and Plan - Problem List (1) Encephalopathy acute Code(s): G93.40 - Encephalopathy, unspecified Status: Acute (2) Acute subdural hematoma Code(s): S06.5X9A - Traumatic subdural hemorrhage with loss of consciousness of unspecified duration, initial encounter Status: Acute (3) Acidosis, lactic Code(s): E87.2 - Acidosis Status: Acute (4) Severe sepsis Code(s): A41.9 - Sepsis, unspecified organism; R65.20 - Severe sepsis without septic shock Status: Acute (5) Hematuria Code(s): R31.9 - Hematuria, unspecified Status: Acute (6) Laceration of forehead Code(s): S01.81XA - Laceration without foreign body of other part of head, initial encounter Status: Acute - Assessment and Plan Plan: 62yM presenting with acute encephalopathy, severe sepsis, acute traumatic SDH, urethral injury NEURO: Acute traumatic SDH Acute encephalopathy History of Wernicke's encephalopathy * SDH stable, neurosurgery following, no interventions planned * Frequent neuro checks, decrease from q1h to q4h as patient has been stable x 2 days * Avoid all anticoagulants/ antiplatelets * Continue Keppra 500 mg BID, transition to PO * Thiamine supplementation, transition to PO * Hold home modafinil * Daily sedation vacation- currently propofol and fentanyl are on hold CARDIO: History of hypertension * Hold home doses of amlodipine and ASA in the setting of ICH and severe sepsis PULM: Acute hypoxic respiratory failure requiring mechanical ventilation * Spontaneous breathing trials as tolerated, currently on CPAP, hold sedation to see if patient is able to be extubated today * Nebs PRN * Pulmonary toilet * Vent bundle F/E/N: * Continue maintenance fluids * ICU electrolyte protocol * Advance TFs to goal if patient is not extubated today (goal is 50 mL/hr with 1 packet protein, 250 mL q4h free water flushes) : Hematuria Urethral injury * Cespedes re-inserted by urology overnight, do not remove or manipulate * Needs outpatient urology follow up after discharge ID: Severe sepsis Gram positive bacteremia (Enterococcus) Persistent lactic acidosis * Blood cultures growing GPC from 02/09 (4 of 4) * Urinalysis was ordered on presentation but could not be collected due to issues listed above, will likely be low yield at this point as patient has been on antibiotics for several days * MRSA swab negative * Continue broad-spectrum antibiotics (vanco, zosyn), antibiotic day #3. ID recommendations appreciated. * Vanco trough due tomorrow evening * Trend lactic acid, still elevated * CT abd/ pelvis yesterday showed no obvious source of infection MSK: Right forehead laceration * Remove sutures after 1 week (on or about 02/16/18) * Tetanus updated on admission * Local wound care PRN PROPHY: * SCDs only, heparin contraindicated in the setting of SDH * PPI Overall: This patient remains critically ill but stable with acute SDH, severe sepsis, bacteremia, urethral injury. He requires ICU level of care. Level 2 follow up To help prompt me to consider important information that might be impacting today's encounter and assessment, information from prior notes written by myself or my colleagues may have been "brought forward" into today's note. My signature on this note, however, is an attestation that I personally performed the exam, history, and/or decision-making noted today, and, unless otherwise indicated, the interactions with patient, family, and staff as well as the review of records all occurred today. I also attest that the listed assessment and stated plan reflect my best clinical judgment today based on the combination of historical information, prior notes, and today's exam/ interactions. Code Status: Full Discussed Condition With: RN, respiratory therapy
--- NOTE | 2018-02-11 18:21 | P.PNID ---
Subjective Remarks: Patient with catheter in urethra, nursing unable to advance. CT scan identified large bladder with montemayor balloon in urethra with tip in false passage. Urology placed new montemayor and obtained cleatr urine he is doing better no t on pressors WBC down , though still 30+ % of bands Antibiotics: zosyn vanco Allergies/Adverse Reactions: Allergies codeine Allergy (Severe, Unverified 12/12/17 13:15) PASSES OUT Objective Vital Signs 02/10/18 18:35 02/10/18 18:46 02/10/18 19:00 Temperature 99.2 F Pulse Rate 100 H 96 H 95 H Respiratory Rate 10 L 13 15 Blood Pressure 127/80 112/56 L Pulse Oximetry 100 100 100 02/10/18 19:16 02/10/18 19:46 02/10/18 19:49 Temperature Pulse Rate 96 H 98 H 98 H Respiratory Rate 14 15 9 L Blood Pressure 135/63 138/73 Pulse Oximetry 100 100 02/10/18 19:50 02/10/18 20:00 02/10/18 20:16 Temperature 99.7 F H Pulse Rate 99 H 103 H Respiratory Rate 9 L 9 L 10 L Blood Pressure 129/60 Pulse Oximetry 100 100 100 02/10/18 20:46 02/10/18 21:00 02/10/18 21:16 Temperature Pulse Rate 103 H 100 H 100 H Respiratory Rate 10 L 8 L 7 L Blood Pressure 124/59 L 138/74 Pulse Oximetry 100 100 100 02/10/18 21:22 02/10/18 21:46 02/10/18 21:54 Temperature Pulse Rate 97 H 95 H Respiratory Rate 11 L 16 Blood Pressure 97/47 L 99/49 L Pulse Oximetry 100 100 100 02/10/18 22:00 02/10/18 22:16 02/10/18 22:46 Temperature Pulse Rate 96 H 101 H 92 H Respiratory Rate 6 L 12 11 L Blood Pressure 113/57 L 99/65 L Pulse Oximetry 100 100 100 02/10/18 23:00 02/10/18 23:16 02/10/18 23:46 Temperature Pulse Rate 89 88 86 Respiratory Rate 11 L 13 12 Blood Pressure 109/58 L 102/55 L Pulse Oximetry 100 100 100 02/10/18 23:54 02/10/18 23:55 02/11/18 00:00 Temperature 98.8 F Pulse Rate 85 90 Respiratory Rate 12 12 11 L Blood Pressure Pulse Oximetry 100 100 02/11/18 00:16 02/11/18 00:46 02/11/18 01:00 Temperature Pulse Rate 84 86 83 Respiratory Rate 11 L 18 10 L Blood Pressure 87/51 L 93/51 L Pulse Oximetry 100 100 100 02/11/18 01:16 02/11/18 01:35 02/11/18 01:46 Temperature Pulse Rate 82 80 Respiratory Rate 12 12 10 L Blood Pressure 101/52 L 89/52 L Pulse Oximetry 100 100 100 02/11/18 02:00 02/11/18 02:16 02/11/18 02:46 Temperature Pulse Rate 80 82 81 Respiratory Rate 10 L 11 L 11 L Blood Pressure 87/52 L 102/54 L 101/62 Pulse Oximetry 100 100 100 02/11/18 03:00 02/11/18 03:14 02/11/18 03:16 Temperature Pulse Rate 81 82 82 Respiratory Rate 11 L 13 Blood Pressure 134/72 Pulse Oximetry 100 100 02/11/18 03:46 02/11/18 04:00 02/11/18 04:16 Temperature 98.5 F Pulse Rate 89 87 85 Respiratory Rate 10 L 10 L 10 L Blood Pressure 120/59 L 115/56 L Pulse Oximetry 100 99 100 02/11/18 04:18 02/11/18 04:46 02/11/18 05:00 Temperature Pulse Rate 82 81 Respiratory Rate 13 10 L 11 L Blood Pressure 103/55 L Pulse Oximetry 100 100 100 02/11/18 05:16 02/11/18 05:46 02/11/18 06:00 Temperature Pulse Rate 79 77 78 Respiratory Rate 9 L 10 L 12 Blood Pressure 100/54 L 106/58 L Pulse Oximetry 88 L 100 99 02/11/18 06:16 02/11/18 06:46 02/11/18 07:00 Temperature 98.7 F Pulse Rate 76 78 76 Respiratory Rate 11 L 10 L 11 L Blood Pressure 105/60 109/62 Pulse Oximetry 98 99 99 02/11/18 07:16 02/11/18 07:46 02/11/18 08:00 Temperature Pulse Rate 77 72 78 Respiratory Rate 10 L 10 L 10 L Blood Pressure 112/60 110/59 L Pulse Oximetry 98 97 100 02/11/18 08:16 02/11/18 08:18 02/11/18 08:46 Temperature Pulse Rate 77 76 83 Respiratory Rate 5 L 7 L 7 L Blood Pressure 111/57 L 122/57 L Pulse Oximetry 99 99 95 02/11/18 09:00 02/11/18 09:16 02/11/18 09:46 Temperature Pulse Rate 83 83 82 Respiratory Rate 10 L 9 L 7 L Blood Pressure 128/63 124/65 Pulse Oximetry 98 98 96 02/11/18 10:00 02/11/18 10:16 02/11/18 10:46 Temperature Pulse Rate 82 83 84 Respiratory Rate 10 L 10 L 8 L Blood Pressure 121/61 125/65 Pulse Oximetry 98 98 98 02/11/18 11:00 02/11/18 11:16 02/11/18 11:46 Temperature Pulse Rate 81 81 84 Respiratory Rate 9 L 10 L 9 L Blood Pressure 131/71 123/66 Pulse Oximetry 97 96 94 L 02/11/18 11:47 02/11/18 12:00 02/11/18 12:16 Temperature 98.4 F Pulse Rate 87 90 87 Respiratory Rate 12 11 L 9 L Blood Pressure 123/92 H Pulse Oximetry 98 95 92 L 02/11/18 12:46 02/11/18 13:00 02/11/18 13:16 Temperature Pulse Rate 90 84 90 Respiratory Rate 9 L 9 L 9 L Blood Pressure 145/69 H 151/78 H Pulse Oximetry 95 93 L 97 02/11/18 13:46 02/11/18 14:00 02/11/18 14:16 Temperature Pulse Rate 88 89 96 H Respiratory Rate 10 L 9 L 15 Blood Pressure 140/72 169/82 H Pulse Oximetry 99 98 94 L 02/11/18 14:46 02/11/18 15:00 02/11/18 15:16 Temperature 98.4 F Pulse Rate 90 83 85 Respiratory Rate 10 L 11 L 6 L Blood Pressure 137/71 127/65 Pulse Oximetry 98 100 100 02/11/18 15:46 02/11/18 16:00 02/11/18 16:16 Temperature Pulse Rate 81 81 78 Respiratory Rate 7 L 6 L 5 L Blood Pressure 115/59 L 114/66 Pulse Oximetry 100 98 100 02/11/18 16:42 02/11/18 16:46 02/11/18 17:00 Temperature Pulse Rate 80 80 81 Respiratory Rate 7 L 7 L 7 L Blood Pressure 121/68 Pulse Oximetry 99 99 99 02/11/18 17:16 02/11/18 17:46 02/11/18 18:00 Temperature Pulse Rate 84 81 81 Respiratory Rate 8 L 7 L 7 L Blood Pressure 127/64 122/60 Pulse Oximetry 96 99 99 Intake & Output 02/10/18 02/11/18 02/11/18 18:59 06:59 18:59 Intake Total 3955 / 3955 1728.5 / 1728.5 2903 / 2903 Output Total 1500 / 1500 1700 / 1700 1100 / 1100 Balance 2455 / 2455 28.5 / 28.5 1803 / 1803 Weight 71.2 kg Intake: IV 3555 / 3555 1668.5 / 1668.5 2405 / 2405 Normosol-R pH 7.4 Inj 1,000 ML 1000 / 1000 1999 / 1999 @ 125 mls/hr IV.CONT .Q8H [facility] Rx#:[id number] Diprivan 1000 mg/100 ml Inj 1, 100 / 100 000 mg In 100 ml @ 5 MCG/KG/MIN 2.517 mls/hr IV.CONT TITRATE PRN Rx#:[id number] Sodium Bicarbonate 8.4% Inj 150 1000 / 1000 MEQ In D5W Inj 850 ML @ 125 mls/hr IV.CONT .Q8H [facility] Rx#: [id number] Magnesium Sulfate Inj 2 GM In 100 / 100 NS Inj 96 ML @ 50 mls/hr IV.SIG UNSCH PRN Rx#:[id number] Zosyn 3.375 GM Premix 3.375 gm 100 / 100 100 / 100 100 / 100 In 50 ml @ 100 mls/hr IV.SIG Q6H [facility] Rx#:[id number] KCl 20 mEq Premix Inj 20 meq In 200 / 200 100 ml @ 50 mls/hr IV.SIG Q2H PRN Rx#:[id number] NS Inj 2,000 ML @ Wide Open IV. 1999 SIG BOLUS ONE Rx#:[id number] NS Inj 250 ML @ 15 mls/hr IV. 250 / 250 SIG ONCE [facility] Rx#:[id number] Thiamine Inj 100 MG In NS Inj 101 / 101 100 ML @ 100 mls/hr IV.SIG Q24H [facility] Rx#:[id number] Vancomycin Inj 1,250 MG In NS 262.5 / 262.5 Inj 250 ML @ 250 mls/hr IV.SIG Q24H [facility] Rx#:[id number] Keppra Inj 500 MG In NS Inj 100 105 / 105 105 / 105 105 / 105 ML @ 400 mls/hr IV.SIG Q12H [facility] Rx#:[id number] Tube Feeding 98 / 98 Intake (Blood Product) Amt 400 / 400 400 / 400 Rbc As-3 Leukoreduced Unit 0 / 0 400 / 400 [id number] Rbc As-3 Leukoreduced Unit 400 / 400 [id number] Bladder Irrigation Fluid - 60 / 60 Amount Retained Coude 60 / 60 Output: Urine Amount (Catheter) 1450 / 1450 1650 / 1650 1100 / 1100 3-way Urethral 1450 / 1450 Coude 1650 / 1650 1100 / 1100 Gastric Drainage 50 / 50 50 / 50 Pre-Hospital Oral Orogastric 50 / 50 50 / 50 Tube Other: Bladder Irrigation Fluid - Amount Instilled 3-way Urethral 3,000 Coude 120 Bladder Irrigation Fluid - Amount Drained 3-way Urethral 4,450 Coude 60 Date of Last Bowel Movement 02/09/18 02/09/18 02/09/18 # Bowel Movements 0 0 02/09/18 17:01 Blood - Peripheral Aerobic Blood Culture - Preliminary Enterococcus faecalis 02/09/18 17:01 Blood - Peripheral Anaerobic Blood Culture - Preliminary Enterococcus faecalis 02/09/18 17:11 Blood - Peripheral Aerobic Blood Culture - Preliminary Enterococcus faecalis 02/09/18 17:11 Blood - Peripheral Anaerobic Blood Culture - Preliminary Enterococcus faecalis Lab - Hematology Results 02/10/18 02/10/18 02/10/18 02:52 14:35 19:48 WBC 13.4 H 7.1 14.1 H D RBC 2.55 L 1.98 L 3.31 L Hgb 7.9 L D 6.2 L* 10.2 L D Hct 24.4 L 18.8 L* 31.0 L MCV 96.0 95.2 93.7 MCH 31.2 31.2 30.8 MCHC 32.5 32.8 32.9 RDW 14.1 14.3 14.2 Plt Count 146 L 93 L D 113 L MPV 9.5 9.1 9.4 Prelim Diff (Auto) Slide review pending Neut % (Auto) 91.7 H Lymph % (Auto) 2.9 L [place] % (Auto) 5.0 Eos % (Auto) 0.1 Baso % (Auto) 0.3 Neut # (Auto) 12.3 H Lymph # (Auto) 0.4 L [place] # (Auto) 0.7 Eos # (Auto) 0.0 Baso # (Auto) 0.0 WBC Differential . Manual diff final Seg Neuts % (Manual) 50 Band Neuts % (Manual) 37 H Lymphocytes % (Manual) 5 L Monocytes % (Manual) 7 Eosinophils % (Manual) Metamyelocytes % (Man) 1 Abs Neuts (Manual) 12.4 H Differential Comment Auto diff final . Toxic Vacuolation Present H Platelet Estimate Low L Platelet Morphology Normal RBC Morphology Normal 02/11/18 05:18 WBC 6.9 D RBC 2.78 L Hgb 8.9 L Hct 26.1 L MCV 93.9 MCH 31.8 MCHC 33.9 RDW 14.7 Plt Count 88 L MPV 9.7 Prelim Diff (Auto) Slide review pending Neut % (Auto) 88.2 H Lymph % (Auto) 7.0 L [place] % (Auto) 3.7 Eos % (Auto) 0.5 Baso % (Auto) 0.6 Neut # (Auto) 6.1 Lymph # (Auto) 0.5 L [place] # (Auto) 0.3 Eos # (Auto) 0.0 Baso # (Auto) 0.0 WBC Differential Manual diff final Seg Neuts % (Manual) 59 Band Neuts % (Manual) 35 H Lymphocytes % (Manual) 4 L Monocytes % (Manual) 1 Eosinophils % (Manual) 1 Metamyelocytes % (Man) Abs Neuts (Manual) 6.5 Differential Comment . Toxic Vacuolation Platelet Estimate Low L Platelet Morphology Normal RBC Morphology Lab - Chemistry Results 02/09/18 02/09/18 02/09/18 19:47 19:54 20:20 Sodium Potassium Chloride Carbon Dioxide Anion Gap BUN Creatinine Estimated GFR POC Glucose 74 86 Random Glucose Lactic Acid 5.2 H* Calcium Calcium Adj for Albumin Phosphorus Magnesium Total Bilirubin AST ALT Alkaline Phosphatase Total Protein Albumin 02/10/18 02/10/18 02/10/18 00:50 02:52 03:45 Sodium 147 H Potassium 3.6 Chloride 120 H Carbon Dioxide 15.2 L Anion Gap 12 BUN 26 H Creatinine 1.24 Estimated GFR 59 L POC Glucose 75 Random Glucose 70 L Lactic Acid 5.1 H* Calcium 7.3 L* Calcium Adj for Albumin 8.8 Phosphorus 3.5 Magnesium 1.4 L Total Bilirubin 0.5 AST 71 H ALT 21 Alkaline Phosphatase 59 Total Protein 5.1 L D Albumin 2.1 L D 02/10/18 02/10/18 02/10/18 06:45 11:58 14:35 Sodium Potassium Chloride Carbon Dioxide Anion Gap BUN Creatinine Estimated GFR POC Glucose 95 90 Random Glucose Lactic Acid Calcium Calcium Adj for Albumin Phosphorus Magnesium 1.8 Total Bilirubin AST ALT Alkaline Phosphatase Total Protein Albumin 02/10/18 02/10/18 02/10/18 14:35 14:35 18:26 Sodium 147 H Potassium 3.3 L Chloride 116 H Carbon Dioxide 19.9 L Anion Gap 11 BUN 24 H Creatinine 1.00 Estimated GFR 75 L POC Glucose 78 Random Glucose 91 Lactic Acid 3.6 H Calcium 6.8 L* Calcium Adj for Albumin 8.5 Phosphorus Magnesium Total Bilirubin 0.4 AST 81 H ALT 26 Alkaline Phosphatase 43 L Total Protein 4.4 L D Albumin 1.9 L 02/10/18 02/11/18 02/11/18 Unknown 01:18 01:43 Sodium Potassium Chloride Carbon Dioxide Anion Gap BUN Creatinine Estimated GFR POC Glucose 65 L Random Glucose 79 Lactic Acid 6.8 H* Calcium Calcium Adj for Albumin Phosphorus Magnesium Total Bilirubin AST ALT Alkaline Phosphatase Total Protein Albumin 02/11/18 02/11/18 02/11/18 02:14 05:18 05:50 Sodium 147 H Potassium 3.2 L Chloride 115 H Carbon Dioxide 20.5 L Anion Gap 12 BUN 19 H Creatinine 0.73 Estimated GFR Greater than 89 POC Glucose 131 H 84 Random Glucose 77 Lactic Acid Calcium 6.7 L* Calcium Adj for Albumin 8.5 Phosphorus Magnesium Total Bilirubin 0.7 AST 97 H ALT 26 Alkaline Phosphatase 53 Total Protein 4.5 L Albumin 1.8 L 02/11/18 02/11/18 02/11/18 10:20 11:55 17:20 Sodium Potassium Chloride Carbon Dioxide Anion Gap BUN Creatinine Estimated GFR POC Glucose 84 81 Random Glucose Lactic Acid 1.5 Calcium Calcium Adj for Albumin Phosphorus Magnesium Total Bilirubin AST ALT Alkaline Phosphatase Total Protein Albumin Imaging: ITS Impressions Chest X-Ray 02/09/18 16:54 CONCLUSION: 1. Interval intubation and placement of nasogastric tube. 2. No acute cardiopulmonary disease. Cervical Spine CT 02/09/18 20:32 CONCLUSION: 1. Negative trauma CT. Abdomen/Bladder Ultrasound 02/10/18 00:00 CONCLUSION: 1. Mild right hydronephrosis. 2. Distended urinary bladder with avascular debris along the dependent aspect. Given the clinical history this could represent blood clot. Consider follow-up to confirm resolution. There is no blood flow in this structure to suggest that it represents a mass. 3. Montemayor catheter is likely misplaced potentially in the posterior/prostatic urethra. It is not visualized within the bladder and urinary bladder is distended. Head CT 02/10/18 06:00 CONCLUSION: 1. Stable right temporal parietal subdural hematoma. 2. No new findings. . Abdomen/Pelvis CT 02/10/18 18:49 CONCLUSION: 1. Extension of Montemayor catheter outside of the urethral lumen into the left sided perineal soft tissues. Findings indicate traumatic perforation of the urethra. There is gas in the surrounding perineal soft tissues. The Montemayor catheter balloon is inflated in this region outside of the urethral lumen. 2. Distended urinary bladder. 3. Mild prominence of the proximal renal collecting systems without shanelle hydronephrosis. 4. Enlarged prostate. 5. Findings were discussed with the patient's nurse. Physical Exam: GENERAL: NAD sedated SKIN: Warm and dry. HEAD: Atraumatic. Normocephalic. EYES: Pupils equal and round. No scleral icterus. No injection or drainage. ENT: No nasal bleeding or discharge. Mucous membranes pink and moist. NECK: Trachea midline. No JVD. CARDIOVASCULAR: Regular rate and rhythm. RESPIRATORY: No accessory muscle use. Clear to auscultation. Breath sounds equal bilaterally. GASTROINTESTINAL: Abdomen soft, non-tender, mildly distended. Hepatic and splenic margins not palpable. : montemayor in place with clear light yellow urine MUSCULOSKELETAL: Extremities without clubbing, cyanosis, or edema. No obvious deformities. NEUROLOGICAL: lethargic sedated PSYCHIATRIC: unable to assess Assessment and Plan - Plan sp fall resulted in subdural hematoma BPH, urinary retention, montemayor trauma High grade enterococcaul bactremia, sepsis likley 2/2 UTI in the settings of urinary retention with BPH othre source ounfd be endocartditis however pt has no clinical findings sugg of endocarditis and has alternative diagnosis sepsis HIgh lactic acidosis, worsening Pt is critically ill stable Hematuria Urethral trauma with montemayor in false passage: corrected buy urologuist cont current abx repaet BC UA, C+S repeat lactic acid urologist help appreacitated
[2018-02-11 21:43] LABS: Amorphous Sediment,Urine Few /hpf; Bacteria,Urine Moderate /hpf; Bilirubin,Urine Negative (Negative); Clarity,Urine Cloudy (Clear); Color,Urine Yellow (Yellw/Straw); Glucose,Urine (UA) Negative (Negative); Leukocyte Esterase,Urine Moderate (Negative); Mucus,Urine Few /lpf (Occasional); Nitrite,Urine Negative (Negative); Specific Gravity,Urine 1.017 (1.002-1.035); Squamous Epithelial Cell,Urine <1 /hpf (0-5)
[2018-02-11] MEDS: Vancomycin Inj 1,250 MG in Sodium Chlor 0.9% Inj 250 ML IV.SIG SCH (22:54)
[2018-02-12] MEDS: Insulin NovoLOG Aspart Correctional Sugar Inj SQ SCH ×5 (00:08→20:04)
[2018-02-12] MEDS: Normosol-R pH 7.4 Inj 1,000 ML IV.CONT SCH (00:08)
[2018-02-12] MEDS: Oral Hygiene Kit OROPHARYNG SCH ×4 (00:08→17:32)
[2018-02-12] MEDS: Piperacil/Tazo 3.375 GM Premix 3.375 GM/50 ML PIGGYBACK IV.SIG SCH ×4 (02:06→20:04)
[2018-02-12] MEDS: Chlorhexidine Gluconate 2% 1 Pack (2 Cloths) TOPICAL SCH (04:48)
[2018-02-12] MEDS: fentaNYL 10 mcg/mL Premix Drip 2,500 MCG/250 ML BAG IV.SIG PRN (05:31)
[2018-02-12] MEDS: Dextrose 50% in Water 50 ML Vial IV.PUSH PRN (05:40)
[2018-02-12 06:18] LABS: Baso % (Auto) 0.6 % (0.0-2.0); Eos # (Auto) 0.1 th/mm3 (0.0-0.4); Eos % (Auto) 2.4 % (0.0-4.0); Hematocrit 27.7 % (39.0-51.0); Hemoglobin 9.4 gm/dL (13.0-17.0); Lymph # (Auto) 0.6 th/mm3 (1.0-4.8); Mean Corpuscular HGB Conc 33.9 % (32.0-36.0); Mean Corpuscular Hemoglobin 31.4 pg (27.0-34.0); Mean Corpuscular Volume 92.6 fL (80.0-100.0); Mean Platelet Volume 9.7 fL (7.0-11.0); Mono # (Auto) 0.2 th/mm3 (0.0-0.9); Mono % (Auto) 3.9 % (0.0-8.0); Neut # (Auto) 4.7 th/mm3 (1.8-7.7); Neut % (Auto) 82.1 % (16.0-70.0); Platelet Count 79 th/mm3 (150-450); Red Blood Count 2.99 mil/mm3 (4.50-5.90); Red Cell Distribution Width 14.7 % (11.6-17.2); White Blood Count 5.8 th/mm3 (4.0-11.0)
[2018-02-12 06:46] LABS: Alanine Aminotransferase 24 U/L (12-78); Albumin 1.9 g/dL (3.4-5.0); Alkaline Phosphatase 65 U/L (45-117); Anion Gap 7 meq/L (5-15); Aspartate Aminotransferase 81 U/L (15-37); Blood Urea Nitrogen 12 mg/dL (7-18); Calcium 7.4 mg/dL (8.5-10.1); Carbon Dioxide 23.6 meq/L (21.0-32.0); Chloride 112 meq/L (98-107); Glomerular Filtration Rate Greater Than 89 mL/min (>89); Glucose,Random 71 mg/dL (74-106); Potassium 3.7 meq/L (3.5-5.1); Sodium 143 meq/L (136-145); Total Protein 4.9 g/dL (6.4-8.2)
[2018-02-12] MEDS: Chlorhexidine 0.12% Oral Kit 15 ML UDC OROPHARYNG SCH (08:32)
[2018-02-12] MEDS: Senna/Docusate Sodium 8.6/50 MG Tablet PO SCH ×2 (08:33→20:04)
[2018-02-12] MEDS: Famotidine 20 MG Tablet PO SCH ×2 (08:33→20:04)
[2018-02-12] MEDS: Famotidine PF Inj 20 MG/2 ML Vial IV.PUSH SCH ×2 (08:33→20:04)
[2018-02-12 08:44] LABS: Lymphocytes 10 % (9-44); Monocytes 1 % (0-8); Ovalocytes 1+; Platelet Morphology Normal (Normal)
--- NOTE | 2018-02-12 10:02 | P.PNCC ---
Subjective Subjective Remarks/Hospital Course: 02/09: 62yM transferred from [facility] for acute subdural hematoma. As per the patient's records, he is from a nursing facility and presented on 02/08 for altered mental status, subsequently developed fever, tachycardia, and leukocytosis, had a Cespedes catheter placed with balloon likely inflated in posterior urethra and developed hematuria. On 02/09, the patient attempted to get out of bed and fell on the floor, hitting his head; it is unclear in the notes whether he lost consciousness but a CTH showed a 5 mm right subdural hematoma without shift or mass effect. He had a laceration to his right upper forehead which was repaired prior to transfer. He had worsening encephalopathy and was intubated prior to transfer. The patient is currently encephalopathic and intubated, therefore unable to provide any meaningful contribution to HPI. History was therefore obtained from the ED physician and records from [facility]. 02/10: Remains sedated, orally intubated on mechanical ventilation. CBI ongoing for hematuria. Patient has been evaluated by neurosurgery and no intervention planned for subdural hemorrhage. Blood cultures positive for gram- positive cocci 4 out of 4. 02/11: Patient continues to have persistent lactic acidosis, has gram positive bacteremia, also found to have urethral disruption and required replacement of Cespedes by urology overnight. 02/12: Patient extubated this morning, awake and alert but confused as to why he 's in the hospital. Objective Vital Signs / I&O: Vital Signs 02/11/18 10:00 02/11/18 10:16 02/11/18 10:46 Temperature Pulse Rate 82 83 84 Respiratory Rate 10 L 10 L 8 L Blood Pressure 121/61 125/65 Pulse Oximetry 98 98 98 02/11/18 11:00 02/11/18 11:16 02/11/18 11:46 Temperature Pulse Rate 81 81 84 Respiratory Rate 9 L 10 L 9 L Blood Pressure 131/71 123/66 Pulse Oximetry 97 96 94 L 02/11/18 11:47 02/11/18 12:00 02/11/18 12:16 Temperature 98.4 F Pulse Rate 87 90 87 Respiratory Rate 12 11 L 9 L Blood Pressure 123/92 H Pulse Oximetry 98 95 92 L 02/11/18 12:46 02/11/18 13:00 02/11/18 13:16 Temperature Pulse Rate 90 84 90 Respiratory Rate 9 L 9 L 9 L Blood Pressure 145/69 H 151/78 H Pulse Oximetry 95 93 L 97 02/11/18 13:46 02/11/18 14:00 02/11/18 14:16 Temperature Pulse Rate 88 89 96 H Respiratory Rate 10 L 9 L 15 Blood Pressure 140/72 169/82 H Pulse Oximetry 99 98 94 L 02/11/18 14:46 02/11/18 15:00 02/11/18 15:16 Temperature 98.4 F Pulse Rate 90 83 85 Respiratory Rate 10 L 11 L 6 L Blood Pressure 137/71 127/65 Pulse Oximetry 98 100 100 02/11/18 15:46 02/11/18 16:00 02/11/18 16:16 Temperature Pulse Rate 81 81 78 Respiratory Rate 7 L 6 L 5 L Blood Pressure 115/59 L 114/66 Pulse Oximetry 100 98 100 02/11/18 16:42 02/11/18 16:46 02/11/18 17:00 Temperature Pulse Rate 80 80 81 Respiratory Rate 7 L 7 L 7 L Blood Pressure 121/68 Pulse Oximetry 99 99 99 02/11/18 17:16 02/11/18 17:46 02/11/18 18:00 Temperature Pulse Rate 84 81 81 Respiratory Rate 8 L 7 L 7 L Blood Pressure 127/64 122/60 Pulse Oximetry 96 99 99 02/11/18 18:16 18 18:46 02/11/18 19:00 Temperature Pulse Rate 81 82 79 Respiratory Rate 7 L 7 L 7 L Blood Pressure 115/66 119/69 Pulse Oximetry 96 99 100 02/11/18 19:16 02/11/18 19:46 02/11/18 19:50 Temperature Pulse Rate 91 H 80 Respiratory Rate 8 L 7 L 9 L Blood Pressure 139/82 123/59 L Pulse Oximetry 96 98 98 02/11/18 19:57 02/11/18 20:00 02/11/18 20:14 Temperature 98.7 F Pulse Rate 83 82 Respiratory Rate 9 L 8 L Blood Pressure Pulse Oximetry 97 98 02/11/18 20:16 02/11/18 20:46 02/11/18 21:00 Temperature Pulse Rate 85 84 84 Respiratory Rate 11 L 9 L 10 L Blood Pressure 112/74 121/71 Pulse Oximetry 95 95 97 02/11/18 21:16 02/11/18 21:46 02/11/18 22:00 Temperature Pulse Rate 75 76 75 Respiratory Rate 13 11 L 11 L Blood Pressure 109/64 116/62 Pulse Oximetry 98 98 100 02/11/18 22:16 02/11/18 22:46 02/11/18 23:00 Temperature Pulse Rate 74 74 76 Respiratory Rate 10 L 9 L 6 L Blood Pressure 107/60 100/64 Pulse Oximetry 100 100 100 02/11/18 23:16 02/11/18 23:40 02/11/18 23:45 Temperature Pulse Rate 75 74 Respiratory Rate 10 L 12 13 Blood Pressure 132/65 Pulse Oximetry 100 100 02/11/18 23:46 02/12/18 00:00 02/12/18 00:16 Temperature 97.7 F Pulse Rate 73 87 75 Respiratory Rate 10 L 17 10 L Blood Pressure 117/68 126/60 Pulse Oximetry 100 99 100 02/12/18 00:46 02/12/18 01:00 02/12/18 01:16 Temperature Pulse Rate 84 76 74 Respiratory Rate 11 L 11 L 10 L Blood Pressure 120/62 116/61 Pulse Oximetry 97 97 96 02/12/18 01:32 02/12/18 01:46 02/12/18 02:00 Temperature Pulse Rate 76 73 Respiratory Rate 12 9 L 9 L Blood Pressure 111/61 Pulse Oximetry 97 97 95 02/12/18 02:16 02/12/18 02:46 02/12/18 03:00 Temperature Pulse Rate 83 74 78 Respiratory Rate 11 L 11 L 10 L Blood Pressure 110/68 108/58 L Pulse Oximetry 96 93 L 95 02/12/18 03:16 02/12/18 03:43 02/12/18 03:46 Temperature Pulse Rate 72 78 75 Respiratory Rate 8 L 13 9 L Blood Pressure 108/63 117/71 Pulse Oximetry 95 95 02/12/18 04:00 02/12/18 04:15 02/12/18 04:16 Temperature 97.7 F Pulse Rate 74 72 Respiratory Rate 11 L 13 11 L Blood Pressure 121/64 Pulse Oximetry 94 L 99 92 L 02/12/18 04:46 02/12/18 05:00 02/12/18 05:16 Temperature Pulse Rate 82 81 79 Respiratory Rate 10 L 10 L 12 Blood Pressure 116/74 117/69 Pulse Oximetry 99 95 99 02/12/18 05:46 02/12/18 06:00 02/12/18 06:16 Temperature Pulse Rate 79 80 74 Respiratory Rate 12 12 10 L Blood Pressure 117/65 105/66 Pulse Oximetry 97 96 97 02/12/18 06:46 02/12/18 07:00 02/12/18 07:16 Temperature Pulse Rate 72 69 68 Respiratory Rate 11 L 9 L 12 Blood Pressure 103/66 107/57 L Pulse Oximetry 94 L 99 93 L 02/12/18 07:46 02/12/18 08:00 02/12/18 08:16 Temperature 97 F L Pulse Rate 69 74 72 Respiratory Rate 11 L 14 8 L Blood Pressure 115/73 116/64 Pulse Oximetry 96 97 96 02/12/18 08:37 02/12/18 08:46 02/12/18 09:00 Temperature Pulse Rate 89 80 87 Respiratory Rate 15 20 12 Blood Pressure 121/74 Pulse Oximetry 99 95 100 02/12/18 09:16 Temperature Pulse Rate 84 Respiratory Rate 11 L Blood Pressure 126/80 Pulse Oximetry 100 Intake & Output 02/11/18 02/12/18 02/12/18 18:59 06:59 18:59 Intake Total 2903 / 2903 2016.5 / 2015.5 1400 / 1400 Output Total 1100 / 1100 900 / 900 Balance 1803 / 1803 1116.5 / 1116.5 1400 / 1400 Weight 73 kg Intake: IV 2405 / 2405 1712.5 / 1712.5 1400 / 1400 Normosol-R pH 7.4 Inj 1,000 ML 2000 / 2000 1000 / 1000 1000 / 1000 @ 125 mls/hr IV.CONT .Q8H [facility] Rx#:[id number] Diprivan 1000 mg/100 ml Inj 1, 100 / 100 000 mg In 100 ml @ 5 MCG/KG/MIN 2.517 mls/hr IV.CONT TITRATE PRN Rx#:[id number] Zosyn 3.375 GM Premix 3.375 gm 100 / 100 100 / 100 50 / 50 In 50 ml @ 100 mls/hr IV.SIG Q6H [facility] Rx#:[id number] KCl 20 mEq Premix Inj 20 meq In 200 / 200 100 / 100 100 ml @ 50 mls/hr IV.SIG Q2H PRN Rx#:[id number] Vancomycin Inj 1,250 MG In NS 262.5 / 262.5 Inj 250 ML @ 250 mls/hr IV.SIG Q24H [facility] Rx#:[id number] fentaNYL 10 mcg/mL Premix Drip 250 / 250 250 / 250 2,500 mcg In 250 ml @ 50 MCG/HR 5 mls/hr IV.SIG TITRATE PRN Rx #:[id number] Keppra Inj 500 MG In NS Inj 100 105 / 105 ML @ 400 mls/hr IV.SIG Q12H [facility] Rx#:[id number] Tube Feeding 98 / 98 244 / 244 Water Bolus Amount 60 / 60 Intake (Blood Product) Amt 400 / 400 Rbc As-3 Leukoreduced Unit 400 / 400 [id number] Output: Urine Amount (Catheter) 1100 / 1100 900 / 900 Coude 1100 / 1100 900 / 900 Other: Date of Last Bowel Movement 02/09/18 02/09/18 02/09/18 # Bowel Movements 0 Result Diagrams: 02/12/18 05:38 02/12/18 05:38 Objective Remarks: GEN: Elderly male lying in bed, no acute distress HEENT: Right forehead laceration healing well; PERRL NECK: Trachea midline CARDIO: Regular rate and rhythm PULM: Clear to auscultation bilaterally, strong cough ABD/GI: Soft, non-distended, non-tender in all quadrants : Cespedes present with clear urine in bag EXT/MSK: No peripheral edema SKIN: Warm and well-perfused NEURO: Awake, alert, oriented to person and time but not place, moves all extremities, answers most questions appropriately, mildly confused PSYCH: Calm Assessment and Plan - Problem List (1) Encephalopathy acute Code(s): G93.40 - Encephalopathy, unspecified Status: Acute (2) Acute subdural hematoma Code(s): S06.5X9A - Traumatic subdural hemorrhage with loss of consciousness of unspecified duration, initial encounter Status: Acute (3) Acidosis, lactic Code(s): E87.2 - Acidosis Status: Acute (4) Severe sepsis Code(s): A41.9 - Sepsis, unspecified organism; R65.20 - Severe sepsis without septic shock Status: Acute (5) Hematuria Code(s): R31.9 - Hematuria, unspecified Status: Acute (6) Laceration of forehead Code(s): S01.81XA - Laceration without foreign body of other part of head, initial encounter Status: Acute - Assessment and Plan Plan: 62yM presenting with acute encephalopathy, severe sepsis, acute traumatic SDH, urethral injury NEURO: Acute traumatic SDH- stable Acute encephalopathy- improving History of Wernicke's encephalopathy * SDH stable, neurosurgery following, no interventions planned * Avoid all anticoagulants/ antiplatelets, will d/w neurosurgery regarding timing of initiation of DVT prophylaxis * Continue Keppra 500 mg BID * Thiamine supplementation * Continue to hold home modafinil * PT/OT evals, out of bed to chair, patient is a fall risk CARDIO: History of hypertension * Hold home ASA * SBP has been persistently 110s-130s overnight, will restart amlodipine tomorrow if he remains stable PULM: Acute hypoxic respiratory failure requiring mechanical ventilation- resolved * Incentive spirometer, encourage deep breathing/ coughing * Nebs PRN F/E/N: * ICU electrolyte protocol * Dysphagia screening, if passes will start PO diet and d/c IV fluids : Hematuria- resolved Urethral injury * Cespedes inserted by urology, do not remove * Needs outpatient urology follow up after discharge ID: Severe sepsis- improving Gram positive bacteremia (Enterococcus) Persistent lactic acidosis- now resolved * Blood cultures growing GPC from 02/09 (4 of 4), repeat cultures sent yesterday , pending * MRSA swab negative * Continue broad-spectrum antibiotics (vanco, zosyn), antibiotic day #4. ID recommendations appreciated. * Vanco trough due tonight * Lactic acidosis now resolved * CT abd/ pelvis yesterday showed no obvious source of infection MSK: Right forehead laceration * Remove sutures after 1 week (on or about 02/16/18) * Tetanus updated on admission * Local wound care PRN PROPHY: * SCDs only, heparin contraindicated in the setting of SDH * PPI Overall: This patient remains critically ill but stable with acute SDH, severe sepsis, bacteremia, urethral injury. He requires ICU level of care. Level 2 follow up To help prompt me to consider important information that might be impacting today's encounter and assessment, information from prior notes written by myself or my colleagues may have been "brought forward" into today's note. My signature on this note, however, is an attestation that I personally performed the exam, history, and/or decision-making noted today, and, unless otherwise indicated, the interactions with patient, family, and staff as well as the review of records all occurred today. I also attest that the listed assessment and stated plan reflect my best clinical judgment today based on the combination of historical information, prior notes, and today's exam/ interactions. Code Status: Full
[2018-02-12] MEDS ORDERED: Dextrose 50% in Water 50 ML Vial IV.PUSH PRN (11:12)
--- NOTE | 2018-02-12 16:16 | P.PNCC ---
Subjective Brief History: 62-year-old gentleman who is inhabitant of a [facility] was transferred to [facility] after he fell. He was worked up found to have a tiny right subdural hematoma and he was transferred to our institution initially as perceived trauma but then on further evaluation patient was noted to have multiple other medical problems and a tiny subdural hematoma was least of the issues involved in a consequence of systemic functional problems the patient was admitted to critical care medicine with multiple consultants including urology and infectious disease Patient was diagnosed with enterococcal sepsis, respiratory failure metabolic acidosis. In addition patient had Cespedes catheter placed into blind passage in the urethra with subsequent hematuria. Patient stayed on the ventilator for a while now he is extubated in bed quite agitated Physical examination reveals 62-year-old male who is quite agitated in the bed moving all [address] scan of the brain does reveal the tiny temporal subdural hematoma but no intracranial pathology that would require further assistance from trauma team Patient could use some Seroquel and Haldol at this time to allow for easier management Objective Vital Signs / I&O: Vital Signs 02/11/18 16:16 02/11/18 16:42 02/11/18 16:46 Temperature Pulse Rate 78 80 80 Respiratory Rate 5 L 7 L 7 L Blood Pressure 114/66 121/68 Pulse Oximetry 100 99 99 02/11/18 17:00 02/11/18 17:16 02/11/18 17:46 Temperature Pulse Rate 81 84 81 Respiratory Rate 7 L 8 L 7 L Blood Pressure 127/64 122/60 Pulse Oximetry 99 96 99 02/11/18 18:00 02/11/18 18:16 02/11/18 18:46 Temperature Pulse Rate 81 81 82 Respiratory Rate 7 L 7 L 7 L Blood Pressure 115/66 119/69 Pulse Oximetry 99 96 99 02/11/18 19:00 02/11/18 19:16 02/11/18 19:46 Temperature Pulse Rate 79 91 H 80 Respiratory Rate 7 L 8 L 7 L Blood Pressure 139/82 123/59 L Pulse Oximetry 100 96 98 02/11/18 19:50 02/11/18 19:57 02/11/18 20:00 Temperature 98.7 F Pulse Rate 83 82 Respiratory Rate 9 L 9 L 8 L Blood Pressure Pulse Oximetry 98 97 02/11/18 20:14 02/11/18 20:16 02/11/18 20:46 Temperature Pulse Rate 85 84 Respiratory Rate 11 L 9 L Blood Pressure 112/74 121/71 Pulse Oximetry 98 95 95 02/11/18 21:00 02/11/18 21:16 02/11/18 21:46 Temperature Pulse Rate 84 75 76 Respiratory Rate 10 L 13 11 L Blood Pressure 109/64 116/62 Pulse Oximetry 97 98 98 02/11/18 22:00 02/11/18 22:16 02/11/18 22:46 Temperature Pulse Rate 75 74 74 Respiratory Rate 11 L 10 L 9 L Blood Pressure 107/60 100/64 Pulse Oximetry 100 100 100 02/11/18 23:00 02/11/18 23:16 02/11/18 23:40 Temperature Pulse Rate 76 75 Respiratory Rate 6 L 10 L 12 Blood Pressure 132/65 Pulse Oximetry 100 100 100 02/11/18 23:45 02/11/18 23:46 02/12/18 00:00 Temperature 97.7 F Pulse Rate 74 73 87 Respiratory Rate 13 10 L 17 Blood Pressure 117/68 Pulse Oximetry 100 99 02/12/18 00:16 02/12/18 00:46 02/12/18 01:00 Temperature Pulse Rate 75 84 76 Respiratory Rate 10 L 11 L 11 L Blood Pressure 126/60 120/62 Pulse Oximetry 100 97 97 02/12/18 01:16 02/12/18 01:32 02/12/18 01:46 Temperature Pulse Rate 74 76 Respiratory Rate 10 L 12 9 L Blood Pressure 116/61 111/61 Pulse Oximetry 96 97 97 02/12/18 02:00 02/12/18 02:16 02/12/18 02:46 Temperature Pulse Rate 73 83 74 Respiratory Rate 9 L 11 L 11 L Blood Pressure 110/68 108/58 L Pulse Oximetry 95 96 93 L 02/12/18 03:00 02/12/18 03:16 02/12/18 03:43 Temperature Pulse Rate 78 72 78 Respiratory Rate 10 L 8 L 13 Blood Pressure 108/63 Pulse Oximetry 95 95 02/12/18 03:46 02/12/18 04:00 02/12/18 04:15 Temperature 97.7 F Pulse Rate 75 74 Respiratory Rate 9 L 11 L 13 Blood Pressure 117/71 Pulse Oximetry 95 94 L 99 02/12/18 04:16 02/12/18 04:46 12/20/18 05:00 Temperature Pulse Rate 72 82 81 Respiratory Rate 11 L 10 L 10 L Blood Pressure 121/64 116/74 Pulse Oximetry 92 L 99 95 02/12/18 05:16 02/12/18 05:46 02/12/18 06:00 Temperature Pulse Rate 79 79 80 Respiratory Rate 12 12 12 Blood Pressure 117/69 117/65 Pulse Oximetry 99 97 96 02/12/18 06:16 02/12/18 06:46 02/12/18 07:00 Temperature Pulse Rate 74 72 69 Respiratory Rate 10 L 11 L 9 L Blood Pressure 105/66 103/66 Pulse Oximetry 97 94 L 99 02/12/18 07:16 02/12/18 07:46 02/12/18 08:00 Temperature Pulse Rate 68 69 74 Respiratory Rate 12 11 L 14 Blood Pressure 107/57 L 115/73 Pulse Oximetry 93 L 96 97 02/12/18 08:16 02/12/18 08:37 02/12/18 08:46 Temperature 97 F L Pulse Rate 72 89 80 Respiratory Rate 8 L 15 20 Blood Pressure 116/64 121/74 Pulse Oximetry 96 99 95 02/12/18 09:00 02/12/18 09:16 02/12/18 09:46 Temperature Pulse Rate 87 84 82 Respiratory Rate 12 11 L 12 Blood Pressure 126/80 127/74 Pulse Oximetry 100 100 100 02/12/18 10:00 02/12/18 10:15 02/12/18 10:16 Temperature Pulse Rate 81 83 83 Respiratory Rate 13 13 13 Blood Pressure 131/75 Pulse Oximetry 100 100 100 02/12/18 10:46 02/12/18 11:00 02/12/18 11:16 Temperature Pulse Rate 83 87 85 Respiratory Rate 12 20 17 Blood Pressure 132/76 135/79 Pulse Oximetry 99 84 L 92 L 02/12/18 11:46 02/12/18 12:00 02/12/18 12:09 Temperature 98.1 F Pulse Rate 82 84 86 Respiratory Rate 12 14 17 Blood Pressure 140/72 Pulse Oximetry 100 99 02/12/18 12:16 02/12/18 12:46 02/12/18 13:00 Temperature Pulse Rate 82 96 H 92 H Respiratory Rate 18 19 18 Blood Pressure 119/80 131/69 Pulse Oximetry 100 100 100 02/12/18 13:16 02/12/18 13:46 02/12/18 14:00 Temperature Pulse Rate 95 H 102 H 100 H Respiratory Rate 19 23 16 Blood Pressure 141/68 H 154/88 H Pulse Oximetry 100 88 L 98 Intake & Output 02/11/18 02/12/18 02/12/18 18:59 06:59 18:59 Intake Total 2903 / 2903 2016.5 / 2015.5 1450 / 1450 Output Total 1100 / 1100 900 / 900 Balance 1803 / 1803 1116.5 / 1116.5 1450 / 1450 Weight 73 kg Intake: IV 2405 / 2405 1712.5 / 1712.5 1450 / 1450 Normosol-R pH 7.4 Inj 1,000 ML 2000 / 2000 1000 / 1000 1000 / 1000 @ 125 mls/hr IV.CONT .Q8H [facility] Rx#:[id number] Diprivan 1000 mg/100 ml Inj 1, 100 / 100 000 mg In 100 ml @ 5 MCG/KG/MIN 2.517 mls/hr IV.CONT TITRATE PRN Rx#:[id number] Zosyn 3.375 GM Premix 3.375 gm 100 / 100 100 / 100 100 / 100 In 50 ml @ 100 mls/hr IV.SIG Q6H [facility] Rx#:[id number] KCl 20 mEq Premix Inj 20 meq In 200 / 200 100 / 100 100 ml @ 50 mls/hr IV.SIG Q2H PRN Rx#:[id number] Vancomycin Inj 1,250 MG In NS 262.5 / 262.5 Inj 250 ML @ 250 mls/hr IV.SIG Q24H [facility] Rx#:[id number] fentaNYL 10 mcg/mL Premix Drip 250 / 250 250 / 250 2,500 mcg In 250 ml @ 50 MCG/HR 5 mls/hr IV.SIG TITRATE PRN Rx #:[id number] Keppra Inj 500 MG In NS Inj 100 105 / 105 ML @ 400 mls/hr IV.SIG Q12H [facility] Rx#:[id number] Tube Feeding 98 / 98 244 / 244 Water Bolus Amount 60 / 60 Intake (Blood Product) Amt 400 / 400 Rbc As-3 Leukoreduced Unit 400 / 400 [id number] Output: Urine Amount (Catheter) 1100 / 1100 900 / 900 Coude 1100 / 1100 900 / 900 Other: Date of Last Bowel Movement 02/09/18 02/09/18 02/09/18 # Bowel Movements 0 Result Diagrams: 02/12/18 05:38 02/12/18 05:38 Disinhibition Score: 14.00 Aggression Score: 14.00 Lability Score: 14.00 Agitated Behavior Total Score: 14 - Exam [employer]: Normocephalic repeat CT scan of the brain on the reveals the initial small subdural hematoma in the right which is stable He is awake alert somewhat disoriented agitated screaming at the nurses and cussing Motorically intact Hemodynamic/Cardiac: Hemodynamically patient is intact Pulmonary/Respiratory: Bilateral breath sounds patient was successfully extubated Abdomen/GI Nutrition: Abdomen is soft active bowel sounds patient is tolerating diet Renal/I&O: Preserved renal function with clear urine at this point which was initially bloody due to traumatic blind Cespedes channel Assessment and Plan Discussed condition with: Discussed with Dr. Shereen Mckinney at this point patient does not have any issues that would require trauma assistance
--- NOTE | 2018-02-12 17:00 | ECHRPT ---
Indication: SEPSIS POSS ENDOCARDITIS CONCLUSIONS Normal left ventricular size. Wall thickness is normal. The left ventricular systolic function is normal with an estimated ejection fraction in the range of 55-60%. [id number] mitral valve regurgitation. Diffuse calcification of the aortic valve. Mild aortic valve regurgitation. There is mild tricuspid valve regurgitation. The estimated pulmonary arterial pressure is 34mmHg. BP: / HR: Rhythm: Sinus MEASUREMENTS (Male / Female) Normal Values Technical Quality:Fair, Technically difficult stud y 2D ECHO LV Diastolic Diameter PLAX 4.7 cm 4.2 - 5.9 / 3.9 - 5.3 cm LV Systolic Diameter PLAX 3.5 cm IVS Diastolic Thickness 0.9 cm 0.6 - 1.0 / 0.6 - 0.9 cm LVPW Diastolic Thickness 0.8 cm 0.6 - 1.0 / 0.6 - 0.9 cm LV Relative Wall Thickness 0.4 RV Internal Dim ED PLAX 3.3 cm LVOT Diameter 2.0 cm Aortic Root Diameter 3.0 cm LA Systolic Diameter LX 3.9 cm 3.0 - 4.0 / 2.7 - 3.8 cm DOPPLER AV Peak Velocity 137.0 cm/s AV Peak Gradient 7.5 mmHg TR Peak Velocity 247.0 cm/s TR Peak Gradient 24.4 mmHg Right Atrial Pressure 10.0 mmHg Pulmonary Artery Systolic Pressu 34.4 mmHg Right Ventricular Systolic Press 34.4 mmHg FINDINGS LEFT VENTRICLE Normal left ventricular size. Wall thickness is normal. The left ventricular systolic function is normal with an estimated ejection fraction in the range of 55-60%. No regional wall motion abnormalities are present. RIGHT VENTRICLE The right ventricular size is normal. LEFT ATRIUM The left atrial size is normal. RIGHT ATRIUM The right atrial size is normal. ATRIAL SEPTUM Normal atrial septal thickness. AORTA The aortic root and proximal ascending aorta are normal in size on limited imaging. MITRAL VALVE Mild thickening of the mitral valve leaflets. [id number] mitral valve regurgitation. AORTIC VALVE The aortic valve is not well visualized. Diffuse calcification of the aortic valve. Mild aortic valve regurgitation. TRICUSPID VALVE The tricuspid valve is not well visualized. There is mild tricuspid valve regurgitation. The estimated pulmonary arterial pressure is 34mmHg. PULMONARY VALVE The pulmonary valve is not well visualized. VESSELS The inferior vena cava is normal in size. PERICARDIUM No pericardial effusion. Turner Rooney (Electronically Signed) Final Date:12 February 2018 16:59
[2018-02-12] MEDS ORDERED: QUEtiapine 25 MG Tablet PO ONE (17:20)
[2018-02-12 17:57] LABS: Bacteria,Urine Rare /hpf; Bilirubin,Urine Negative (Negative); Clarity,Urine Clear (Clear); Color,Urine Straw (Yellw/Straw); Glucose,Urine (UA) Negative (Negative); Hyaline Casts,Urine 1 /lpf (0-3); Leukocyte Esterase,Urine Trace (Negative); Mucus,Urine Few /lpf (Occasional); Nitrite,Urine Negative (Negative); Specific Gravity,Urine 1.005 (1.002-1.035)
[2018-02-12] MEDS: levETIRAcetam 500 MG Tablet PO SCH (20:04)
[2018-02-12] MEDS ORDERED: QUEtiapine 25 MG Tablet PO SCH (21:00)
[2018-02-12 21:49] LABS: Anion Gap 7 meq/L (5-15); Blood Urea Nitrogen 7 mg/dL (7-18); Calcium 8.2 mg/dL (8.5-10.1); Chloride 116 meq/L (98-107); Glomerular Filtration Rate Greater Than 89 mL/min (>89); Glucose,Random 91 mg/dL (74-106); Potassium 3.2 meq/L (3.5-5.1)
[2018-02-12 22:04] LABS: Sodium 149 meq/L (136-145)
[2018-02-12] MEDS: Vancomycin Inj 1,250 MG in Sodium Chlor 0.9% Inj 250 ML IV.SIG SCH (22:20)
[2018-02-12 22:31] LABS: Albumin 2.1 g/dL (3.4-5.0); Anion Gap 9 meq/L (5-15); Aspartate Aminotransferase 74 U/L (15-37); Blood Urea Nitrogen 7 mg/dL (7-18); Calcium 8.2 mg/dL (8.5-10.1); Carbon Dioxide 22.9 meq/L (21.0-32.0); Chloride 117 meq/L (98-107); Glomerular Filtration Rate Greater Than 89 mL/min (>89); Glucose,Random 90 mg/dL (74-106); Magnesium 1.8 mg/dL (1.5-2.5); Potassium 3.2 meq/L (3.5-5.1); Sodium 149 meq/L (136-145)
[2018-02-12 22:35] LABS: Alanine Aminotransferase 26 U/L (12-78); Alkaline Phosphatase 72 U/L (45-117); Total Protein 5.2 g/dL (6.4-8.2); Vancomycin,Trough 11.9 mcg/mL (5.0-10.0)
[2018-02-12] MEDS ORDERED: Pharmacy Ordered Lab Info OTHER ONE (22:45)
[2018-02-13] MEDS: Oral Hygiene Kit OROPHARYNG SCH ×5 (00:04→23:38)
[2018-02-13] MEDS: Potassium Chlor 20 mEq Premix 20 MEQ/100 ML PIGGYBACK IV.SIG PRN ×5 (00:06→08:49)
[2018-02-13] MEDS: Piperacil/Tazo 3.375 GM Premix 3.375 GM/50 ML PIGGYBACK IV.SIG SCH ×2 (01:01→10:39)
[2018-02-13] MEDS: Chlorhexidine Gluconate 2% 1 Pack (2 Cloths) TOPICAL SCH (03:06)
[2018-02-13 05:24] LABS: Baso % (Auto) 0.7 % (0.0-2.0); Eos # (Auto) 0.1 th/mm3 (0.0-0.4); Eos % (Auto) 2.1 % (0.0-4.0); Hematocrit 29.1 % (39.0-51.0); Hemoglobin 10.1 gm/dL (13.0-17.0); Lymph # (Auto) 0.8 th/mm3 (1.0-4.8); Lymph % (Auto) 16.3 % (9.0-44.0); Mean Corpuscular HGB Conc 34.5 % (32.0-36.0); Mean Corpuscular Hemoglobin 31.5 pg (27.0-34.0); Mean Corpuscular Volume 91.2 fL (80.0-100.0); Mean Platelet Volume 9.6 fL (7.0-11.0); Mono # (Auto) 0.4 th/mm3 (0.0-0.9); Mono % (Auto) 7.6 % (0.0-8.0); Neut # (Auto) 3.5 th/mm3 (1.8-7.7); Neut % (Auto) 73.3 % (16.0-70.0); Platelet Count 98 th/mm3 (150-450); Red Blood Count 3.19 mil/mm3 (4.50-5.90); Red Cell Distribution Width 14.6 % (11.6-17.2); White Blood Count 4.8 th/mm3 (4.0-11.0)
[2018-02-13 08:11] LABS: Eosinophils 3 % (0-4); Lymphocytes 14 % (9-44); Monocytes 6 % (0-8); Toxic Vacuolation Present
--- NOTE | 2018-02-13 08:11 | P.NPEVAL ---
Patient History - Record/History Review Reason for Referral: The patient is a 62 year old presumed right handed man who was admitted to [facility] on transfer from another institution with mental status changes, and while in the ED he fell. Head CT showed right SDH without mass effect. He is referred for baseline neurobehavioral status examination per trauma protocol to assess cognitive, behavioral and emotional aspects of the injury and to provide treatment recommendations. PMFSH - History History Provided By: Medical Record - Medical / Surgical Hx Neg / Unobtainable Medical Problems Denied: Unable to Obtain - Tobacco History Smoking Status: Unknown if ever smoked - Alcohol History How Often Do You Have a Drink Containing Alcohol: Unable to Obtain - Substance Use History Substance History: Unable to Obtain - Travel History Recent Travel in the [place] Within the Last 8 Weeks: No Recent Travel Out of the Country Within the Last 8 Weeks: No - Immunization History Tetanus Immunization: Unable to Assess Medications Active Medications Acetaminophen (Tylenol) 650 mg PO Q6H PRN PRN Reason: PAIN 1-10 AND/OR FEVER >101F Last Admin: 02/10/18 11:41 Dose: 650 mg Al Hydroxide/Mg Hydroxide ([facility]k [facility] Liq) 30 ml PO Q12H PRN PRN Reason: Mild Constipation Albuterol (Duoneb Neb (Prn)) 1 ampul NEB Q2HR NEB PRN PRN Reason: WHEEZING Albuterol (Duoneb Neb (Joy)) 1 ampul NEB Q4HR NEB JOY Last Admin: 02/13/18 04:21 Dose: 1 ampul Bisacodyl (Dulcolax Supp) 10 mg RECTAL DAILY PRN PRN Reason: SEVERE CONSITIPATION Chlorhexidine Gluconate (Chlorhexidine 2% Cloth) 3 pack TOPICAL DAILY@0400 JOY Stop: 02/15/18 03:59 Last Admin: 02/13/18 03:06 Dose: 3 pack Chlorhexidine Gluconate (Chlorhexidine 2% Cloth) 3 pack TOPICAL DAILY@0400 PRN PRN Reason: Extra cloth needed Stop: 02/15/18 03:59 Dextrose (D50w Vial) 50 ml IV.PUSH UNSCH PRN PRN Reason: PER HYPOGLYCEMIA PROTOCOL Last Admin: 02/12/18 05:40 Dose: 50 ml Dextrose (D50w Vial) 50 ml IV.PUSH UNSCH PRN PRN Reason: PER HYPOGLYCEMIA PROTOCOL Famotidine (Pepcid) 20 mg PO BID JOY Last Admin: 02/12/18 20:04 Dose: Not Given Famotidine (Pepcid Pf Inj) 20 mg IV.PUSH Q12HR [facility] Last Admin: 02/12/18 20:04 Dose: 20 mg Glucagon (Glucagon Inj) 1 mg OTHER PRN PRN PRN Reason: for Hypoglycemia Protocol Piperacillin/Tazobactam/Dextrose (Zosyn 3.375 Gm Premix) 3.375 gm in 50 mls @ 100 mls/hr IV.SIG Q6H [facility] Last Infusion: 02/13/18 01:35 Dose: Infused Magnesium Sulfate 4 gm/ Sodium (Chloride) 100 mls @ 50 mls/hr IV.SIG UNSCH PRN PRN Reason: For Magnesium 0.9 - 1.1 mg/dL Potassium Chloride (Kcl 40 Meq Premix Inj) 40 meq in 100 mls @ 25 mls/hr IV.SIG Q2H PRN PRN Reason: For Potassium 2.8 - 3.2 mEq/L Potassium Chloride (Kcl 20 Meq Premix Inj) 20 meq in 100 mls @ 50 mls/hr IV.SIG Q2H PRN PRN Reason: For Potassium 3.3 - 3.5 mEq/L Potassium Chloride (Kcl 40 Meq Premix Inj) 40 meq in 100 mls @ 25 mls/hr IV.SIG UNSCH PRN PRN Reason: For Potassium 3.3 - 3.5 mEq/L Potassium Phosphate 30 mmol/ (Sodium Chloride) 260 mls @ 42 mls/hr IV.SIG UNSCH PRN PRN Reason: SEE LABEL COMMENTS Sodium Phosphate 30 mmol/ (Sodium Chloride) 260 mls @ 42 mls/hr IV.SIG UNSCH PRN PRN Reason: For Phosphorus < 2.5 mg/dL Magnesium Sulfate 2 gm/ Sodium (Chloride) 100 mls @ 50 mls/hr IV.SIG UNSCH PRN PRN Reason: For Magnesium 1.2 - 1.6 mg/dL Last Infusion: 02/10/18 11:53 Dose: Infused Potassium Chloride (Kcl 20 Meq Premix Inj) 20 meq in 100 mls @ 50 mls/hr IV.SIG Q2H PRN PRN Reason: For Potassium 2.8 - 3.2 mEq/L Last Admin: 02/13/18 06:28 Dose: 50 mls/hr Vancomycin HCl 1,250 mg/ (Sodium Chloride) 262.5 mls @ 250 mls/hr IV.SIG Q24H [facility] Last Infusion: 02/13/18 00:29 Dose: Infused Insulin Aspart (Novolog Insulin Correctional Sugar Inj) 0 unit SQ ACHS [facility]; Protocol Last Admin: 02/12/18 20:04 Dose: Not Given Labetalol HCl (Trandate Inj) 10 mg IV.PUSH Q4H PRN PRN Reason: SYSTOLIC BP > 160 mmHg Lactulose (Lactulose Liq) 30 ml PO DAILY PRN PRN Reason: SEVERE CONSITIPATION Levetiracetam (Keppra) 500 mg PO BID [facility] Last Admin: 02/12/18 20:04 Dose: 500 mg Magnesium Oxide (Mag-Ox) 800 mg PO UNSCH PRN PRN Reason: For Magnesium 1.2 - 1.6 mg/dL Miscellaneous Medication () 1 each OROPHARYNG 0000,0400,1200,1600 [facility] Last Admin: 02/13/18 03:06 Dose: 1 each Ondansetron HCl (Zofran Inj) 4 mg IV.PUSH Q6H PRN PRN Reason: NAUSEA OR VOMITING Pharmacy Profile Note (Vancomycin Consult Pharmacy) 1 each OTHER UNSCH PRN PRN Reason: Pharmacy to dose Potassium Bicarb/Potassium Chloride (K-Lyte Cl Eff) 50 meq PO UNSCH PRN PRN Reason: For Potassium 3.3 - 3.5 mEq/L Potassium Phosphate (K-Phos Original) 2,000 mg PO Q4H PRN PRN Reason: Phosphorus Less Than 2.5 mg/dL Potassium Phosphate (K-Phos Original) 2,000 mg PO UNSCH PRN PRN Reason: SEE LABEL COMMENTS Quetiapine Fumarate (Seroquel) 50 mg PO BID [facility] Senna/Docusate Sodium (Esperanza-Colace) 1 tab PO BID [facility] Last Admin: 02/12/18 20:04 Dose: 1 tab Sennosides (Senokot) 17.2 mg PO Q12H PRN PRN Reason: Moderate Constipation Sodium Chloride (Ns Flush) 2 ml IV.FLUSH BID [facility] Last Admin: 02/12/18 20:04 Dose: 2 ml Sodium Chloride (Ns Flush) 2 ml IV.FLUSH PRN PRN PRN Reason: FLUSH AFTER USING IV ACCESS Tamsulosin HCl (Flomax) 0.4 mg PO DAILY [facility] Last Admin: 02/12/18 08:32 Dose: 0.4 mg Mental Status Assessment - Mental Status Orientation: oriented to: Self Mental Status: Variable: Language/interactions, Impaired: Thought processing, Attention, Learning/memory Absent: Hallucinations, Delusions Adjustment/Coping Assessment - Adjustment/Coping Adjustment/Coping: Moderate: Awareness, Insight - Observation In terms of emotional functioning, the patient demonstrated challenges. This patient demonstrated no signs of agitation, impulsivity or disinhibition, nor was there remarkable evidence of a formal thought disorder or psychosis. There was no evidence of depression or anxiety. Thought content was free from suicidal, homicidal or paranoid ideation, and thought processes were bradyphrenic. The patients mood was demanding, and his affect was labile. The patient appears to possess limited insight and awareness into their situation and within the limits of this brief evaluation, questionable judgment. Behavior - Behavior Agitation: Mild Treatment Engagement: Minimal - Observation Behaviorally, the patient demonstrated no signs of agitation, impulsivity or disinhibition. There was no remarkable evidence of a formal thought disorder or psychosis. - Goals LTG Status: Deferred STG Status: Deferred - Team Members Team Members: Neuropsychologist Diagnosis/Discharge Plan - Diagnosis (1) Major neurocognitive disorder due to another medical condition Status: Acute Impression: 62 year old man with prior history of major neurocognitive disorder admitted to on transfer with mental status changes, with developed SDH from a fall and now mildly agitated. Disinhibition Score: 17.50 Aggression Score: 14.00 Lability Score: 14.00 Agitated Behavior Total Score: 16 Maximizing Acute Care Outcome: It is recommended that the patient be monitored for emergent behavioral impulsivity as the medical condition evolves. This patients neuropathological challenges may limit rehabilitation potential going forward, and these challenges will require specialized therapeutic skills to maximize outcome. At this point in the recovery process, the patient does not have cognitive capacity as the patient is unable to understand a situation and its likely consequences, nor is the patient able to manipulate information rationally. Cognitive capacity will be assessed throughout the recovery process. - Discharge Planning Anticipated Problems: Ongoing areas of concern will include behavioral impulsivity, lack of insight and judgment, which is expected to improve with time and treatment. Treatment Plan: This clinician will continue to follow with you throughout the course of this patients critical care treatment, and I will be available to meet with the patients family/support system to facilitate their understanding and the ongoing care of their family member. The goals of neuropsychological intervention shall be both educational and supportive to the family/support system as is deemed clinically appropriate. Thank you for the opportunity to assist in this patients care. Alexsander Butler, Ph.D., ABPP Board Certified in Clinical Neuropsychology [place] [employer] Professional Psychology [place] Licensed Psychologist #[id number]
[2018-02-13] MEDS: Insulin NovoLOG Aspart Correctional Sugar Inj SQ SCH ×4 (09:56→20:35)
[2018-02-13] MEDS: Senna/Docusate Sodium 8.6/50 MG Tablet PO SCH ×2 (10:40→20:36)
[2018-02-13] MEDS: Famotidine 20 MG Tablet PO SCH ×2 (10:40→20:36)
[2018-02-13] MEDS: Famotidine PF Inj 20 MG/2 ML Vial IV.PUSH SCH ×2 (10:40→20:36)
[2018-02-13] MEDS: levETIRAcetam 500 MG Tablet PO SCH ×2 (10:40→20:35)
[2018-02-13] MEDS: QUEtiapine 25 MG Tablet PO SCH ×2 (10:40→20:37)
[2018-02-13] MEDS: Labetalol HCl Inj 100 MG/20 ML Vial IV.PUSH PRN ×2 (11:18→17:30)
--- NOTE | 2018-02-13 11:31 | P.PNID ---
Subjective Remarks: better extubated growing 4/4 enterococcus and in urine as well, amp S Antibiotics: vanco Allergies/Adverse Reactions: Allergies codeine Allergy (Severe, Unverified 12/12/17 13:15) PASSES OUT Objective Vital Signs 02/12/18 11:16 02/12/18 11:46 02/12/18 12:00 Temperature 98.1 F Pulse Rate 85 82 84 Respiratory Rate 17 12 14 Blood Pressure 135/79 140/72 Pulse Oximetry 92 L 100 99 02/12/18 12:09 02/12/18 12:16 02/12/18 12:46 Temperature Pulse Rate 86 82 96 H Respiratory Rate 17 18 19 Blood Pressure 119/80 131/69 Pulse Oximetry 100 100 02/12/18 13:00 02/12/18 13:16 02/12/18 13:46 Temperature Pulse Rate 92 H 95 H 102 H Respiratory Rate 18 19 23 Blood Pressure 141/68 H 154/88 H Pulse Oximetry 100 100 88 L 02/12/18 14:00 02/12/18 14:19 02/12/18 14:46 Temperature Pulse Rate 100 H 102 H 95 H Respiratory Rate 16 23 17 Blood Pressure 147/73 H 141/73 H Pulse Oximetry 98 79 L 100 02/12/18 15:00 02/12/18 15:16 02/12/18 16:00 Temperature 98.2 F Pulse Rate 93 H 97 H 98 H Respiratory Rate 25 H 23 38 H Blood Pressure 153/82 H Pulse Oximetry 99 95 02/12/18 16:09 02/12/18 16:16 02/12/18 16:46 Temperature Pulse Rate 96 H 96 H 101 H Respiratory Rate 19 16 21 Blood Pressure 134/75 149/70 H 138/90 Pulse Oximetry 96 98 02/12/18 17:00 02/12/18 17:36 02/12/18 17:39 Temperature Pulse Rate 99 H 101 H 98 H Respiratory Rate 23 24 20 Blood Pressure 148/76 H 148/71 H Pulse Oximetry 98 80 L 95 02/12/18 18:00 02/12/18 18:02 02/12/18 19:00 Temperature Pulse Rate 97 H 99 H 98 H Respiratory Rate 17 15 16 Blood Pressure 145/68 H Pulse Oximetry 95 94 L 96 02/12/18 19:02 02/12/18 20:00 02/12/18 20:02 Temperature 98.8 F Pulse Rate 104 H 100 H 100 H Respiratory Rate 24 14 22 Blood Pressure 149/99 H 176/84 H Pulse Oximetry 96 96 96 02/12/18 20:06 02/12/18 20:32 02/12/18 20:33 Temperature Pulse Rate 103 H 103 H Respiratory Rate 22 18 Blood Pressure 174/81 H Pulse Oximetry 96 95 02/12/18 21:00 02/12/18 21:02 02/12/18 22:00 Temperature Pulse Rate 106 H 108 H 95 H Respiratory Rate 19 24 15 Blood Pressure 158/72 H Pulse Oximetry 97 96 95 02/12/18 22:02 02/12/18 23:00 02/12/18 23:02 Temperature Pulse Rate 96 H 95 H 90 Respiratory Rate 18 20 18 Blood Pressure 147/73 H 136/69 Pulse Oximetry 96 95 95 02/13/18 00:00 02/13/18 00:02 02/13/18 00:33 Temperature 99.0 F Pulse Rate 90 90 97 H Respiratory Rate 16 20 21 Blood Pressure 142/79 H Pulse Oximetry 96 96 02/13/18 01:00 02/13/18 01:02 02/13/18 02:00 Temperature Pulse Rate 97 H 94 H 89 Respiratory Rate 21 14 16 Blood Pressure 151/79 H Pulse Oximetry 95 94 L 95 02/13/18 02:03 02/13/18 03:00 02/13/18 04:00 Temperature 98.8 F Pulse Rate 91 H 94 H 92 H Respiratory Rate 17 18 22 Blood Pressure 143/77 H 155/74 H 146/81 H Pulse Oximetry 95 99 02/13/18 04:21 02/13/18 05:00 02/13/18 06:00 Temperature Pulse Rate 91 H 98 H 88 Respiratory Rate 22 20 22 Blood Pressure 160/83 H 146/79 H Pulse Oximetry 02/13/18 07:00 02/13/18 08:51 Temperature Pulse Rate 85 Respiratory Rate 18 Blood Pressure Pulse Oximetry 95 Intake & Output 02/12/18 02/13/18 02/13/18 18:59 06:59 18:59 Intake Total 2300 / 2300 902.5 / 902.5 100 / 100 Output Total 2600 / 2600 4850 / 4850 Balance -300 / -300 -3947.5 / -3947.5 100 / 100 Weight 67.1 kg Intake: IV 1450 / 1450 662.5 / 662.5 100 / 100 Normosol-R pH 7.4 Inj 1,000 ML 1000 / 1000 @ 125 mls/hr IV.CONT .Q8H [facility] Rx#:[id number] Diprivan 1000 mg/100 ml Inj 1, 100 / 100 000 mg In 100 ml @ 5 MCG/KG/MIN 2.517 mls/hr IV.CONT TITRATE PRN Rx#:[id number] Zosyn 3.375 GM Premix 3.375 gm 100 / 100 100 / 100 In 50 ml @ 100 mls/hr IV.SIG Q6H [facility] Rx#:[id number] KCl 20 mEq Premix Inj 20 meq In 300 / 300 100 / 100 100 ml @ 50 mls/hr IV.SIG Q2H PRN Rx#:[id number] Vancomycin Inj 1,250 MG In NS 262.5 / 262.5 Inj 250 ML @ 250 mls/hr IV.SIG Q24H [facility] Rx#:[id number] fentaNYL 10 mcg/mL Premix Drip 250 / 250 2,500 mcg In 250 ml @ 50 MCG/HR 5 mls/hr IV.SIG TITRATE PRN Rx #:[id number] Oral 850 / 850 240 / 240 Output: Urine Amount (Catheter) 2600 / 2600 4850 / 4850 Coude 2600 / 2600 4850 / 4850 Other: Date of Last Bowel Movement 02/12/18 02/13/18 # Bowel Movements 2 02/11/18 20:29 Catheterized Urine Urine Culture - Final Enterococcus faecalis 02/12/18 05:38 Blood - Peripheral Aerobic Blood Culture - Preliminary No growth in 1 day 02/12/18 05:38 Blood - Peripheral Anaerobic Blood Culture - Preliminary No growth in 1 day 02/12/18 05:43 Blood - Peripheral Aerobic Blood Culture - Preliminary No growth in 1 day 02/12/18 05:43 Blood - Peripheral Anaerobic Blood Culture - Preliminary No growth in 1 day 02/09/18 17:01 Blood - Peripheral Aerobic Blood Culture - Final Enterococcus faecalis 02/09/18 17:01 Blood - Peripheral Anaerobic Blood Culture - Final Enterococcus faecalis 02/09/18 17:11 Blood - Peripheral Aerobic Blood Culture - Final Enterococcus faecalis 02/09/18 17:11 Blood - Peripheral Anaerobic Blood Culture - Final Enterococcus faecalis Lab - Hematology Results 02/12/18 02/13/18 05:38 04:28 WBC 5.8 4.8 RBC 2.99 L 3.19 L Hgb 9.4 L 10.1 L Hct 27.7 L 29.1 L MCV 92.6 91.2 MCH 31.4 31.5 MCHC 33.9 34.5 RDW 14.7 14.6 Plt Count 79 L 98 L MPV 9.7 9.6 Prelim Diff (Auto) Slide review pending Slide review pending Neut % (Auto) 82.1 H 73.3 H Lymph % (Auto) 11.0 16.3 [place] % (Auto) 3.9 7.6 Eos % (Auto) 2.4 2.1 Baso % (Auto) 0.6 0.7 Neut # (Auto) 4.7 3.5 Lymph # (Auto) 0.6 L 0.8 L [place] # (Auto) 0.2 0.4 Eos # (Auto) 0.1 0.1 Baso # (Auto) 0.0 0.0 WBC Differential Manual diff final Manual diff final Seg Neuts % (Manual) 62 69 Band Neuts % (Manual) 27 H 8 H Lymphocytes % (Manual) 10 14 Monocytes % (Manual) 1 6 Eosinophils % (Manual) 3 Abs Neuts (Manual) 5.2 3.7 Differential Comment . . Toxic Vacuolation Present H Platelet Estimate Low L Low L Platelet Morphology Normal Enlarged H Ovalocytes 1+ H Lab - Chemistry Results 02/11/18 02/11/18 02/11/18 11:55 17:20 23:58 Sodium Potassium Chloride Carbon Dioxide Anion Gap BUN Creatinine Estimated GFR POC Glucose 84 81 83 Random Glucose Calcium Calcium Adj for Albumin Magnesium Total Bilirubin AST ALT Alkaline Phosphatase Total Protein Albumin 02/12/18 02/12/18 02/12/18 05:33 05:37 05:38 Sodium 143 Potassium 3.7 Chloride 112 H Carbon Dioxide 23.6 Anion Gap 7 BUN 12 Creatinine 0.48 L Estimated GFR Greater than 89 POC Glucose 64 L 64 L Random Glucose 71 L Calcium 7.4 L* Calcium Adj for Albumin 9.1 Magnesium Total Bilirubin 0.9 AST 81 H ALT 24 Alkaline Phosphatase 65 Total Protein 4.9 L Albumin 1.9 L 02/12/18 02/12/18 02/12/18 05:59 13:18 17:49 Sodium Potassium Chloride Carbon Dioxide Anion Gap BUN Creatinine Estimated GFR POC Glucose 161 H 75 78 Random Glucose Calcium Calcium Adj for Albumin Magnesium Total Bilirubin AST ALT Alkaline Phosphatase Total Protein Albumin 02/12/18 02/12/18 02/12/18 20:03 21:18 21:18 Sodium 149 H 149 H Potassium 3.2 L 3.2 L Chloride 117 H 116 H Carbon Dioxide 22.9 26.0 Anion Gap 9 7 BUN 7 7 Creatinine 0.69 0.61 Estimated GFR Greater than 89 Greater than 89 POC Glucose 89 Random Glucose 90 91 Calcium 8.2 L D 8.2 L Calcium Adj for Albumin Magnesium 1.8 Total Bilirubin 0.8 AST 74 H ALT 26 Alkaline Phosphatase 72 Total Protein 5.2 L Albumin 2.1 L 02/13/18 02/13/18 01:03 08:29 Sodium Potassium Chloride Carbon Dioxide Anion Gap BUN Creatinine Estimated GFR POC Glucose 92 80 Random Glucose Calcium Calcium Adj for Albumin Magnesium Total Bilirubin AST ALT Alkaline Phosphatase Total Protein Albumin Imaging: ITS Impressions Chest X-Ray 02/09/18 16:54 CONCLUSION: 1. Interval intubation and placement of nasogastric tube. 2. No acute cardiopulmonary disease. Cervical Spine CT 02/09/18 20:32 CONCLUSION: 1. Negative trauma CT. Abdomen/Bladder Ultrasound 02/10/18 00:00 CONCLUSION: 1. Mild right hydronephrosis. 2. Distended urinary bladder with avascular debris along the dependent aspect. Given the clinical history this could represent blood clot. Consider follow-up to confirm resolution. There is no blood flow in this structure to suggest that it represents a mass. 3. Montemayor catheter is likely misplaced potentially in the posterior/prostatic urethra. It is not visualized within the bladder and urinary bladder is distended. Head CT 02/10/18 06:00 CONCLUSION: 1. Stable right temporal parietal subdural hematoma. 2. No new findings. . Abdomen/Pelvis CT 02/10/18 18:49 CONCLUSION: 1. Extension of Montemayor catheter outside of the urethral lumen into the left sided perineal soft tissues. Findings indicate traumatic perforation of the urethra. There is gas in the surrounding perineal soft tissues. The Montemayor catheter balloon is inflated in this region outside of the urethral lumen. 2. Distended urinary bladder. 3. Mild prominence of the proximal renal collecting systems without shanelle hydronephrosis. 4. Enlarged prostate. 5. Findings were discussed with the patient's nurse. Physical Exam: GENERAL: NAD sedated SKIN: Warm and dry. HEAD: Atraumatic. Normocephalic. EYES: Pupils equal and round. No scleral icterus. No injection or drainage. ENT: No nasal bleeding or discharge. Mucous membranes pink and moist. NECK: Trachea midline. No JVD. CARDIOVASCULAR: Regular rate and rhythm. RESPIRATORY: No accessory muscle use. Clear to auscultation. Breath sounds equal bilaterally. GASTROINTESTINAL: Abdomen soft, non-tender, mildly distended. Hepatic and splenic margins not palpable. : montemayor in place with clear light yellow urine MUSCULOSKELETAL: Extremities without clubbing, cyanosis, or edema. NEUROLOGICAL: awake alert confused PSYCHIATRIC: calm Assessment and Plan - Plan sp fall resulted in subdural hematoma BPH, urinary retention, montemayor trauma High grade enterococcaul bactremia, sepsis likley 2/2 UTI in the settings of urinary retention with BPH othre source ounfd be endocartditis however pt has no clinical findings sugg of endocarditis and has alternative diagnosis sepsis HIgh lactic acidosis, worsening Pt is stable and improving sp Urethral trauma with montemayor in false passage: montemayor placement corrected by urologuist change abx to ampicillin fu repeat blood clx if repeat BC remains negative anticipate 2 weeks of abx geremias Fernandes
--- NOTE | 2018-02-13 17:58 | P.PNCC ---
Subjective Subjective Remarks/Hospital Course: 02/09: 62yM transferred from [facility] for acute subdural hematoma. As per the patient's records, he is from a nursing facility and presented on 02/08 for altered mental status, subsequently developed fever, tachycardia, and leukocytosis, had a Cespedes catheter placed with balloon likely inflated in posterior urethra and developed hematuria. On 02/09, the patient attempted to get out of bed and fell on the floor, hitting his head; it is unclear in the notes whether he lost consciousness but a CTH showed a 5 mm right subdural hematoma without shift or mass effect. He had a laceration to his right upper forehead which was repaired prior to transfer. He had worsening encephalopathy and was intubated prior to transfer. The patient is currently encephalopathic and intubated, therefore unable to provide any meaningful contribution to HPI. History was therefore obtained from the ED physician and records from [facility]. 02/10: Remains sedated, orally intubated on mechanical ventilation. CBI ongoing for hematuria. Patient has been evaluated by neurosurgery and no intervention planned for subdural hemorrhage. Blood cultures positive for gram- positive cocci 4 out of 4. 02/11: Patient continues to have persistent lactic acidosis, has gram positive bacteremia, also found to have urethral disruption and required replacement of Cespedes by urology overnight. 02/12: Patient extubated this morning, awake and alert but confused as to why he 's in the hospital. 02/13: Intermittently agitated and impulsive, currently resting comfortably. No overnight events. Objective Vital Signs / I&O: Vital Signs 02/12/18 18:00 02/12/18 18:02 02/12/18 19:00 Temperature Pulse Rate 97 H 99 H 98 H Respiratory Rate 17 15 16 Blood Pressure 145/68 H Pulse Oximetry 95 94 L 96 02/12/18 19:02 02/12/18 20:00 02/12/18 20:02 Temperature 98.8 F Pulse Rate 104 H 100 H 100 H Respiratory Rate 24 14 22 Blood Pressure 149/99 H 176/84 H Pulse Oximetry 96 96 96 02/12/18 20:06 02/12/18 20:32 02/12/18 20:33 Temperature Pulse Rate 103 H 103 H Respiratory Rate 22 18 Blood Pressure 174/81 H Pulse Oximetry 96 95 02/12/18 21:00 02/12/18 21:02 02/12/18 22:00 Temperature Pulse Rate 106 H 108 H 95 H Respiratory Rate 19 24 15 Blood Pressure 158/72 H Pulse Oximetry 97 96 95 02/12/18 22:02 02/12/18 23:00 02/12/18 23:02 Temperature Pulse Rate 96 H 95 H 90 Respiratory Rate 18 20 18 Blood Pressure 147/73 H 136/69 Pulse Oximetry 96 95 95 02/13/18 00:00 02/13/18 00:02 02/13/18 00:33 Temperature 99.0 F Pulse Rate 90 90 97 H Respiratory Rate 16 20 21 Blood Pressure 142/79 H Pulse Oximetry 96 96 02/13/18 01:00 02/13/18 01:02 02/13/18 02:00 Temperature Pulse Rate 97 H 94 H 89 Respiratory Rate 21 14 16 Blood Pressure 151/79 H Pulse Oximetry 95 94 L 95 02/13/18 02:03 02/13/18 03:00 02/13/18 04:00 Temperature 98.8 F Pulse Rate 91 H 94 H 92 H Respiratory Rate 17 18 22 Blood Pressure 143/77 H 155/74 H 146/81 H Pulse Oximetry 95 99 02/13/18 04:21 02/13/18 05:00 02/13/18 06:00 Temperature Pulse Rate 91 H 98 H 88 Respiratory Rate 22 20 22 Blood Pressure 160/83 H 146/79 H Pulse Oximetry 02/13/18 07:00 02/13/18 08:51 02/13/18 12:09 Temperature Pulse Rate 85 73 Respiratory Rate 18 17 Blood Pressure Pulse Oximetry 95 02/13/18 16:21 Temperature Pulse Rate 79 Respiratory Rate 17 Blood Pressure Pulse Oximetry Intake & Output 02/12/18 02/13/18 02/13/18 18:59 06:59 18:59 Intake Total 2300 / 2300 902.5 / 902.5 250 / 250 Output Total 2600 / 2600 4850 / 4850 Balance -300 / -300 -3947.5 / -3947.5 250 / 250 Weight 67.1 kg Intake: IV 1450 / 1450 662.5 / 662.5 250 / 250 Normosol-R pH 7.4 Inj 1,000 ML 1000 / 1000 @ 125 mls/hr IV.CONT .Q8H [facility] Rx#:[id number] Diprivan 1000 mg/100 ml Inj 1, 100 / 100 000 mg In 100 ml @ 5 MCG/KG/MIN 2.517 mls/hr IV.CONT TITRATE PRN Rx#:[id number] Ampicillin Inj 2,000 MG In NS 100 / 100 Inj 100 ML @ 400 mls/hr IV.SIG Q4H [facility] Rx#:[id number] Zosyn 3.375 GM Premix 3.375 gm 100 / 100 100 / 100 50 / 50 In 50 ml @ 100 mls/hr IV.SIG Q6H [facility] Rx#:[id number] KCl 20 mEq Premix Inj 20 meq In 300 / 300 100 / 100 100 ml @ 50 mls/hr IV.SIG Q2H PRN Rx#:[id number] Vancomycin Inj 1,250 MG In NS 262.5 / 262.5 Inj 250 ML @ 250 mls/hr IV.SIG Q24H [facility] Rx#:[id number] fentaNYL 10 mcg/mL Premix Drip 250 / 250 2,500 mcg In 250 ml @ 50 MCG/HR 5 mls/hr IV.SIG TITRATE PRN Rx #:[id number] Oral 850 / 850 240 / 240 Output: Urine Amount (Catheter) 2600 / 2600 4850 / 4850 Coude 2600 / 2600 4850 / 4850 Other: Date of Last Bowel Movement 02/12/18 02/13/18 # Bowel Movements 2 Result Diagrams: 02/13/18 04:28 02/13/18 11:41 Objective Remarks: GEN: Elderly male lying in bed, no acute distress HEENT: Right forehead laceration stable NECK: Trachea midline CARDIO: Regular rate and rhythm PULM: Clear to auscultation bilaterally ABD/GI: Soft, non-tender : Cespedes present with clear urine in bag EXT/MSK: No peripheral edema SKIN: Warm and well-perfused NEURO: Sleepy but easily arousable to voice, moves all extremities, no focal neuro deficits PSYCH: Calm Assessment and Plan - Problem List (1) Encephalopathy acute Code(s): G93.40 - Encephalopathy, unspecified Status: Acute (2) Acute subdural hematoma Code(s): S06.5X9A - Traumatic subdural hemorrhage with loss of consciousness of unspecified duration, initial encounter Status: Acute (3) Acidosis, lactic Code(s): E87.2 - Acidosis Status: Acute (4) Severe sepsis Code(s): A41.9 - Sepsis, unspecified organism; R65.20 - Severe sepsis without septic shock Status: Acute (5) Hematuria Code(s): R31.9 - Hematuria, unspecified Status: Acute (6) Laceration of forehead Code(s): S01.81XA - Laceration without foreign body of other part of head, initial encounter Status: Acute - Assessment and Plan Plan: 62yM presenting with acute encephalopathy, severe sepsis, acute traumatic SDH, urethral injury NEURO: Acute traumatic SDH- stable Acute encephalopathy- improving History of Wernicke's encephalopathy * SDH stable, neurosurgery following, no interventions planned * Avoid all anticoagulants/ antiplatelets, will need to d/w neurosurgery regarding timing of initiation of DVT prophylaxis * Continue Keppra 500 mg BID * Thiamine supplementation * Restart home modafinil * PT/OT evals, out of bed to chair, patient is a fall risk * Continue seroquel for agitation * Delirium precautions (lights on/ shades up during the day, limit night time disruptions, encourage good sleep hygiene, frequent reorientation, limit deliriogenic meds) * Neuropsychology consulted CARDIO: History of hypertension * Hold home ASA * Restart home dose of amlodipine PULM: Acute hypoxic respiratory failure requiring mechanical ventilation- resolved * Incentive spirometer, encourage deep breathing/ coughing * Nebs PRN F/E/N: * ICU electrolyte protocol * Cardiac diet : Hematuria- resolved Urethral injury * Cespedes inserted by urology, do not remove * Needs outpatient urology follow up after discharge ID: Severe sepsis- improving Gram positive bacteremia (Enterococcus) Persistent lactic acidosis- now resolved * Blood cultures from 02/09 growing GPC from 02/09 (4 of 4), repeat cultures from 02/12 have no growth at 1 day * ID following, antibiotics de-escalated to ampicillin MSK: Right forehead laceration * Remove sutures after 1 week (on or about 02/16/18) * Tetanus updated on admission * Local wound care PRN PROPHY: * SCDs only, heparin contraindicated in the setting of SDH * PPI Overall: This patient has resolving urosepsis and is improving from his traumatic brain injury. He can be transitioned to the hospitalist service in the AM. Level 2 follow up To help prompt me to consider important information that might be impacting today's encounter and assessment, information from prior notes written by myself or my colleagues may have been "brought forward" into today's note. My signature on this note, however, is an attestation that I personally performed the exam, history, and/or decision-making noted today, and, unless otherwise indicated, the interactions with patient, family, and staff as well as the review of records all occurred today. I also attest that the listed assessment and stated plan reflect my best clinical judgment today based on the combination of historical information, prior notes, and today's exam/ interactions. Code Status: Full
[2018-02-13] MEDS ORDERED: Vancomycin Inj 1,500 MG in Sodium Chlor 0.9% Inj 500 ML IV.SIG SCH (22:00)
[2018-02-14] MEDS: Chlorhexidine Gluconate 2% 1 Pack (2 Cloths) TOPICAL SCH (03:31)
[2018-02-14] MEDS: Oral Hygiene Kit OROPHARYNG SCH ×3 (03:31→15:12)
[2018-02-14 04:49] LABS: Baso % (Auto) 0.7 % (0.0-2.0); Eos # (Auto) 0.4 th/mm3 (0.0-0.4); Eos % (Auto) 7.4 % (0.0-4.0); Hematocrit 33.2 % (39.0-51.0); Hemoglobin 11.3 gm/dL (13.0-17.0); Lymph # (Auto) 1.1 th/mm3 (1.0-4.8); Mean Corpuscular HGB Conc 34.1 % (32.0-36.0); Mean Corpuscular Hemoglobin 31.2 pg (27.0-34.0); Mean Corpuscular Volume 91.6 fL (80.0-100.0); Mean Platelet Volume 9.3 fL (7.0-11.0); Mono # (Auto) 0.5 th/mm3 (0.0-0.9); Mono % (Auto) 9.2 % (0.0-8.0); Neut # (Auto) 3.2 th/mm3 (1.8-7.7); Neut % (Auto) 61.7 % (16.0-70.0); Platelet Count 99 th/mm3 (150-450); Red Blood Count 3.63 mil/mm3 (4.50-5.90); Red Cell Distribution Width 14.3 % (11.6-17.2); White Blood Count 5.3 th/mm3 (4.0-11.0)
[2018-02-14 05:15] LABS: Albumin 2.4 g/dL (3.4-5.0); Anion Gap 10 meq/L (5-15); Aspartate Aminotransferase 48 U/L (15-37); Blood Urea Nitrogen 5 mg/dL (7-18); Calcium 8.7 mg/dL (8.5-10.1); Carbon Dioxide 25.5 meq/L (21.0-32.0); Chloride 110 meq/L (98-107); Glomerular Filtration Rate Greater Than 89 mL/min (>89); Glucose,Random 88 mg/dL (74-106); Magnesium 1.7 mg/dL (1.5-2.5); Potassium 3.6 meq/L (3.5-5.1); Sodium 145 meq/L (136-145)
[2018-02-14 05:16] LABS: Alanine Aminotransferase 23 U/L (12-78)
[2018-02-14 05:18] LABS: Alkaline Phosphatase 76 U/L (45-117); Total Protein 6.1 g/dL (6.4-8.2)
[2018-02-14 05:23] LABS: Platelet Morphology Normal (Normal)
[2018-02-14] MEDS: Famotidine 20 MG Tablet PO SCH ×2 (09:43→20:50)
[2018-02-14] MEDS: amLODIPine 10 MG Tablet PO SCH (09:43)
[2018-02-14] MEDS: levETIRAcetam 500 MG Tablet PO SCH ×2 (09:43→20:48)
[2018-02-14] MEDS: Modafinil 200 MG Tablet PO SCH (09:43)
[2018-02-14] MEDS: Senna/Docusate Sodium 8.6/50 MG Tablet PO SCH (09:43)
[2018-02-14] MEDS: QUEtiapine 25 MG Tablet PO SCH ×2 (09:45→20:49)
[2018-02-14] MEDS: Famotidine PF Inj 20 MG/2 ML Vial IV.PUSH SCH ×2 (09:45→20:50)
[2018-02-14] MEDS: Insulin NovoLOG Aspart Correctional Sugar Inj SQ SCH ×3 (10:05→16:05)
--- NOTE | 2018-02-14 12:26 | P.CONFP ---
History of Present Illness Service: Family Medicine Consult date: 02/14/18 Reason for Consult: S/P SDH and SIRS Primary Care Provider: UNKNOWN Chief Complaint: Encephalopathy History of Present Illness: 62yM transferred from [facility] for acute subdural hematoma. As per the patient's records, he is from a nursing facility and presented on 02/08 for altered mental status, subsequently developed fever, tachycardia, and leukocytosis, had a Cespedes catheter placed with balloon likely inflated in posterior urethra and developed hematuria. On 02/09, the patient attempted to get out of bed and fell on the floor, hitting his head; it is unclear in the notes whether he lost consciousness but a CTH showed a 5 mm right subdural hematoma without shift or mass effect. He had a laceration to his right upper forehead which was repaired prior to transfer. He had worsening encephalopathy and was intubated prior to transfer. The patient is currently encephalopathic and recently extubated. Much of the history was obtained from the ED physician and records from [facility]. Review of Systems Constitutional: Reports anorexia, Reports weakness Eyes: Denies loss of vision Ears, Nose, Mouth, and Throat: Reports dry mouth, Denies abnormal hearing Cardiovascular: Denies chest pain, Denies shortness of breath Respiratory: Denies chest congestion Gastrointestinal: Denies abdominal pain, Denies pain with swallowing Genitourinary: Reports blood in urine Musculoskeletal: Reports muscle weakness Neurologic: Reports unsteadiness, Reports weakness Psychiatric: Reports anxiety, Reports behavioral changes, Reports confusion PMFSH - History History Provided By: Medical Record - Medical / Surgical Hx Neg / Unobtainable Medical Problems Denied: Unable to Obtain Surgical History: Unable to Obtain - Social History I have reviewed the patient's Social History: Yes - Tobacco History Smoking Status: Unknown if ever smoked - Alcohol History How Often Do You Have a Drink Containing Alcohol: Unable to Obtain - Substance Use History Substance History: Unable to Obtain - Travel History Recent Travel in the [place] Within the Last 8 Weeks: No Recent Travel Out of the Country Within the Last 8 Weeks: No - Immunization History Tetanus Immunization: Unable to Assess Medications and Allergies Active Medications: Active Medications Acetaminophen (Tylenol) 650 mg PO Q6H PRN PRN Reason: PAIN 1-10 AND/OR FEVER >101F Last Admin: 02/10/18 11:41 Dose: 650 mg Al Hydroxide/Mg Hydroxide (Milk Of Magnesia Liq) 30 ml PO Q12H PRN PRN Reason: Mild Constipation Albuterol (Duoneb Neb (Prn)) 1 ampul NEB Q2HR NEB PRN PRN Reason: WHEEZING Amlodipine Besylate (Norvasc) 10 mg PO DAILY [facility] Last Admin: 02/14/18 09:43 Dose: 10 mg Bisacodyl (Dulcolax Supp) 10 mg RECTAL DAILY PRN PRN Reason: SEVERE CONSITIPATION Chlorhexidine Gluconate (Chlorhexidine 2% Cloth) 3 pack TOPICAL DAILY@0400 [facility] Stop: 02/15/18 03:59 Last Admin: 02/14/18 03:31 Dose: 3 pack Chlorhexidine Gluconate (Chlorhexidine 2% Cloth) 3 pack TOPICAL DAILY@0400 PRN PRN Reason: Extra cloth needed Stop: 02/15/18 03:59 Dextrose (D50w Vial) 50 ml IV.PUSH UNSCH PRN PRN Reason: PER HYPOGLYCEMIA PROTOCOL Last Admin: 02/12/18 05:40 Dose: 50 ml Dextrose (D50w Vial) 50 ml IV.PUSH UNSCH PRN PRN Reason: PER HYPOGLYCEMIA PROTOCOL Famotidine (Pepcid) 20 mg PO BID [facility] Last Admin: 02/14/18 09:43 Dose: 20 mg Famotidine (Pepcid Pf Inj) 20 mg IV.PUSH Q12HR [facility] Last Admin: 02/14/18 09:45 Dose: Not Given Glucagon (Glucagon Inj) 1 mg OTHER PRN PRN PRN Reason: for Hypoglycemia Protocol Magnesium Sulfate 4 gm/ Sodium (Chloride) 100 mls @ 50 mls/hr IV.SIG UNSCH PRN PRN Reason: For Magnesium 0.9 - 1.1 mg/dL Potassium Chloride (Kcl 40 Meq Premix Inj) 40 meq in 100 mls @ 25 mls/hr IV.SIG Q2H PRN PRN Reason: For Potassium 2.8 - 3.2 mEq/L Potassium Chloride (Kcl 20 Meq Premix Inj) 20 meq in 100 mls @ 50 mls/hr IV.SIG Q2H PRN PRN Reason: For Potassium 3.3 - 3.5 mEq/L Potassium Chloride (Kcl 40 Meq Premix Inj) 40 meq in 100 mls @ 25 mls/hr IV.SIG UNSCH PRN PRN Reason: For Potassium 3.3 - 3.5 mEq/L Potassium Phosphate 30 mmol/ (Sodium Chloride) 260 mls @ 42 mls/hr IV.SIG UNSCH PRN PRN Reason: SEE LABEL COMMENTS Sodium Phosphate 30 mmol/ (Sodium Chloride) 260 mls @ 42 mls/hr IV.SIG UNSCH PRN PRN Reason: For Phosphorus < 2.5 mg/dL Magnesium Sulfate 2 gm/ Sodium (Chloride) 100 mls @ 50 mls/hr IV.SIG UNSCH PRN PRN Reason: For Magnesium 1.2 - 1.6 mg/dL Last Infusion: 02/10/18 11:53 Dose: Infused Potassium Chloride (Kcl 20 Meq Premix Inj) 20 meq in 100 mls @ 50 mls/hr IV.SIG Q2H PRN PRN Reason: For Potassium 2.8 - 3.2 mEq/L Last Infusion: 02/13/18 08:28 Dose: Infused Ampicillin Sodium 2,000 mg/ (Sodium Chloride) 100 mls @ 400 mls/hr IV.SIG Q4H [facility] Last Infusion: 02/14/18 10:45 Dose: Infused Insulin Aspart (Novolog Insulin Correctional Sugar Inj) 0 unit SQ ACHS [facility]; Protocol Last Admin: 02/14/18 12:07 Dose: Not Given Labetalol HCl (Trandate Inj) 10 mg IV.PUSH Q4H PRN PRN Reason: SYSTOLIC BP > 160 mmHg Last Admin: 02/13/18 17:30 Dose: 10 mg Lactulose (Lactulose Liq) 30 ml PO DAILY PRN PRN Reason: SEVERE CONSITIPATION Levetiracetam (Keppra) 500 mg PO BID [facility] Last Admin: 02/14/18 09:43 Dose: 500 mg Magnesium Oxide (Mag-Ox) 800 mg PO UNSCH PRN PRN Reason: For Magnesium 1.2 - 1.6 mg/dL Miscellaneous Medication () 1 each OROPHARYNG 0000,0400,1200,1600 [facility] Last Admin: 02/14/18 12:08 Dose: Not Given Modafinil (Provigil) 100 mg PO DAILY [facility] Last Admin: 02/14/18 09:43 Dose: 100 mg Ondansetron HCl (Zofran Inj) 4 mg IV.PUSH Q6H PRN PRN Reason: NAUSEA OR VOMITING Potassium Bicarb/Potassium Chloride (K-Lyte Cl Eff) 50 meq PO UNSCH PRN PRN Reason: For Potassium 3.3 - 3.5 mEq/L Potassium Phosphate (K-Phos Original) 2,000 mg PO Q4H PRN PRN Reason: Phosphorus Less Than 2.5 mg/dL Potassium Phosphate (K-Phos Original) 2,000 mg PO UNSCH PRN PRN Reason: SEE LABEL COMMENTS Quetiapine Fumarate (Seroquel) 50 mg PO BID [facility] Last Admin: 02/14/18 09:45 Dose: 50 mg Senna/Docusate Sodium (Esperanza-Colace) 1 tab PO BID [facility] Last Admin: 02/14/18 09:43 Dose: 1 tab Sennosides (Senokot) 17.2 mg PO Q12H PRN PRN Reason: Moderate Constipation Sodium Chloride (Ns Flush) 2 ml IV.FLUSH BID [facility] Last Admin: 02/14/18 09:44 Dose: 2 ml Sodium Chloride (Ns Flush) 2 ml IV.FLUSH PRN PRN PRN Reason: FLUSH AFTER USING IV ACCESS Tamsulosin HCl (Flomax) 0.4 mg PO DAILY [facility] Last Admin: 02/14/18 09:43 Dose: 0.4 mg Allergies Allergy/AdvReac Type Severity Reaction Status Date / Time codeine Allergy Severe PASSES OUT Unverified 12/12/17 13:15 Exam Vital signs: Vital Signs 02/13/18 13:00 02/13/18 13:02 02/13/18 14:00 Temperature Pulse Rate 79 80 80 Respiratory Rate 14 24 16 Blood Pressure 126/87 Pulse Oximetry 100 100 100 02/13/18 14:02 02/13/18 15:00 02/13/18 15:02 Temperature Pulse Rate 82 77 76 Respiratory Rate 24 13 13 Blood Pressure 171/95 H 145/76 H Pulse Oximetry 100 100 100 02/13/18 16:00 02/13/18 16:02 02/13/18 16:21 Temperature 97.6 F Pulse Rate 76 81 79 Respiratory Rate 13 14 17 Blood Pressure 153/89 H Pulse Oximetry 100 100 02/13/18 17:00 02/13/18 17:02 02/13/18 17:36 Temperature Pulse Rate 81 90 85 Respiratory Rate 14 20 16 Blood Pressure 169/104 H 170/93 H Pulse Oximetry 100 100 100 02/13/18 18:00 02/13/18 18:02 02/13/18 19:00 Temperature Pulse Rate 66 68 72 Respiratory Rate 12 12 12 Blood Pressure 143/68 H Pulse Oximetry 100 100 99 02/13/18 19:02 02/13/18 19:42 02/13/18 20:00 Temperature Pulse Rate 75 74 78 Respiratory Rate 15 14 15 Blood Pressure 156/81 H Pulse Oximetry 100 96 99 02/13/18 20:02 02/13/18 21:00 02/13/18 21:02 Temperature 98.5 F Pulse Rate 77 83 84 Respiratory Rate 14 22 17 Blood Pressure 139/71 155/91 H Pulse Oximetry 98 99 100 02/13/18 21:15 02/13/18 21:30 02/13/18 21:45 Temperature Pulse Rate 81 80 81 Respiratory Rate 15 16 15 Blood Pressure Pulse Oximetry 100 100 100 02/13/18 22:00 02/13/18 22:02 02/13/18 22:15 Temperature Pulse Rate 82 82 81 Respiratory Rate 15 17 18 Blood Pressure 183/81 H Pulse Oximetry 100 100 100 02/13/18 22:20 02/13/18 23:00 02/13/18 23:02 Temperature Pulse Rate 79 79 80 Respiratory Rate 14 14 19 Blood Pressure 142/73 H 142/76 H Pulse Oximetry 100 100 100 02/14/18 00:00 02/14/18 00:02 02/14/18 01:00 Temperature 98.0 F Pulse Rate 73 73 70 Respiratory Rate 12 12 19 Blood Pressure 116/67 Pulse Oximetry 99 99 100 02/14/18 01:02 02/14/18 02:00 02/14/18 02:02 Temperature Pulse Rate 71 82 80 Respiratory Rate 16 19 15 Blood Pressure 127/69 144/95 H Pulse Oximetry 100 99 99 02/14/18 03:00 02/14/18 03:02 02/14/18 04:00 Temperature 97.6 F Pulse Rate 78 72 75 Respiratory Rate 15 11 L 12 Blood Pressure 130/84 Pulse Oximetry 99 99 97 02/14/18 04:02 02/14/18 05:00 02/14/18 05:02 Temperature Pulse Rate 73 75 77 Respiratory Rate 11 L 13 13 Blood Pressure 168/96 H 131/82 Pulse Oximetry 96 96 97 02/14/18 06:00 02/14/18 06:02 02/14/18 07:00 Temperature Pulse Rate 74 81 75 Respiratory Rate 12 16 12 Blood Pressure 131/87 Pulse Oximetry 98 98 96 02/14/18 07:02 02/14/18 08:00 02/14/18 08:02 Temperature 98 F Pulse Rate 74 77 77 Respiratory Rate 12 15 13 Blood Pressure 104/70 124/83 Pulse Oximetry 96 97 97 02/14/18 08:52 02/14/18 09:00 02/14/18 09:02 Temperature Pulse Rate 77 77 Respiratory Rate 13 14 Blood Pressure 127/81 Pulse Oximetry 98 99 99 02/14/18 10:00 02/14/18 10:02 02/14/18 11:00 Temperature Pulse Rate 87 85 88 Respiratory Rate 21 15 17 Blood Pressure 139/87 Pulse Oximetry 99 99 98 02/14/18 11:02 02/14/18 12:00 Temperature 97.6 F Pulse Rate 88 88 Respiratory Rate 16 15 Blood Pressure 111/77 Pulse Oximetry 97 100 Intake & Output 02/13/18 02/14/18 02/14/18 18:59 06:59 18:59 Intake Total 590 / 590 540 / 540 100 / 100 Output Total 3325 / 3325 2250 / 2250 Balance -2735 / -2735 -1710 / -1710 100 / 100 Intake: IV 350 / 350 300 / 300 100 / 100 Ampicillin Inj 2,000 MG In NS 200 / 200 300 / 300 100 / 100 Inj 100 ML @ 400 mls/hr IV.SIG Q4H [facility] Rx#:[id number] Zosyn 3.375 GM Premix 3.375 gm 50 / 50 In 50 ml @ 100 mls/hr IV.SIG Q6H [facility] Rx#:[id number] KCl 20 mEq Premix Inj 20 meq In 100 / 100 100 ml @ 50 mls/hr IV.SIG Q2H [facility] Rx#:[id number] Oral 240 / 240 240 / 240 Output: Stool 75 / 75 100 / 100 Urine Amount (Catheter) 3250 / 3250 2150 / 2150 Coude 3250 / 3250 215 / 2150 Other: Date of Last Bowel Movement 02/13/18 02/14/18 02/14/18 - Constitutional no acute distress - Routine HEENT Exam Head: Present: normocephalic, laceration Eye: Present: PERRL, normal accommodation ENT: Present: mucous membranes moist - Routine Neck Exam Present: supple, full ROM - Routine Respiratory Exam Present: rhonchi, diminished air movement - Routine Cardiovascular Exam Present: RRR, S1, S2 - Routine Abdominal Exam Present: soft, normoactive bowel sounds - Routine Extremities Exam Absent: cyanosis, edema - Routine Skin Exam Present: intact - Routine Neurological Exam Present: moving all extremities garbled speech with wasting both thenar and temporal areas, arouses to speech Results - Labs Result diagrams: 02/14/18 04:35 02/14/18 04:35 Abnormal lab results 02/13/18 02/14/18 02/14/18 Range/Units 12:32 04:35 04:35 RBC 3.63 L (4.50-5.90) mil/mm3 Hgb 11.3 L (13.0-17.0) gm/dL Hct 33.2 L (39.0-51.0) % Plt Count 99 L (150-450) th/mm3 Hemphill % (Auto) 9.2 H (0.0-8.0) % Eos % (Auto) 7.4 H (0.0-4.0) % Platelet Estimate Low L (Normal) Chloride 110 H (98-107) meq/L BUN 5 L (7-18) mg/dL POC Glucose 111 H (68-110) mg/dl AST 48 H (15-37) U/L Total Protein 6.1 L D (6.4-8.2) g/dL Albumin 2.4 L (3.4-5.0) g/dL 02/14/18 Range/Units 12:01 RBC (4.50-5.90) mil/mm3 Hgb (13.0-17.0) gm/dL Hct (39.0-51.0) % Plt Count (150-450) th/mm3 Hemphill % (Auto) (0.0-8.0) % Eos % (Auto) (0.0-4.0) % Platelet Estimate (Normal) Chloride (98-107) meq/L BUN (7-18) mg/dL POC Glucose 117 H (68-110) mg/dl AST (15-37) U/L Total Protein (6.4-8.2) g/dL Albumin (3.4-5.0) g/dL Short CBC 02/14/18 Range/Units 04:35 WBC 5.3 (4.0-11.0) th/mm3 Hgb 11.3 L (13.0-17.0) gm/dL Hct 33.2 L (39.0-51.0) % Plt Count 99 L (150-450) th/mm3 BMP 02/13/18 02/14/18 11:41 04:35 Sodium 145 Potassium 4.0 D 3.6 Chloride 110 H Carbon Dioxide 25.5 BUN 5 L Creatinine 0.62 Calcium 8.7 Liver Function 02/14/18 Range/Units 04:35 Total Bilirubin 0.8 (0.2-1.0) mg/dL AST 48 H (15-37) U/L ALT 23 (12-78) U/L Alkaline Phosphatase 76 (45-117) U/L Albumin 2.4 L (3.4-5.0) g/dL Assessment and Plan - Assessment (1) Acute subdural hematoma Code(s): S06.5X9A - Traumatic subdural hemorrhage with loss of consciousness of unspecified duration, initial encounter Status: Acute Plan: Cont current management of critical care (2) SIRS (systemic inflammatory response syndrome) Code(s): R65.10 - Systemic inflammatory response syndrome (SIRS) of non- infectious origin without acute organ dysfunction Status: Acute Plan: Cont IV antibiotics as ordered (3) Encephalopathy acute Code(s): G93.40 - Encephalopathy, unspecified Status: Acute Plan: F/U mental status (4) Laceration of forehead Code(s): S01.81XA - Laceration without foreign body of other part of head, initial encounter Status: Acute Plan: Right over the eye laceration with intact stitches and no redness, D/C or swelling noted (5) Major neurocognitive disorder due to another medical condition Code(s): F02.80 - Dementia in other diseases classified elsewhere without behavioral disturbance Status: Acute Plan: Cont current critical care management and treatment for SDH and SIRS. (6) Altered mental status Code(s): R41.82 - Altered mental status, unspecified Status: Acute Qualifiers: Altered mental status type: stupor Qualified Code(s): R40.1 - Stupor - Assessment and Plan Will monitor daily and assess response to current treatment.
[2018-02-15] MEDS: Senna/Docusate Sodium 8.6/50 MG Tablet PO SCH ×3 (02:28→22:33)
[2018-02-15] MEDS: Oral Hygiene Kit OROPHARYNG SCH ×4 (02:29→15:58)
[2018-02-15] MEDS: Insulin NovoLOG Aspart Correctional Sugar Inj SQ SCH ×5 (02:32→22:33)
[2018-02-15 04:33] LABS: Baso # (Auto) 0.1 th/mm3 (0.0-0.2); Eos # (Auto) 0.4 th/mm3 (0.0-0.4); Eos % (Auto) 6.9 % (0.0-4.0); Hematocrit 34.3 % (39.0-51.0); Hemoglobin 11.6 gm/dL (13.0-17.0); Lymph % (Auto) 18.5 % (9.0-44.0); Mean Corpuscular HGB Conc 33.9 % (32.0-36.0); Mean Corpuscular Hemoglobin 30.8 pg (27.0-34.0); Mean Corpuscular Volume 90.9 fL (80.0-100.0); Mean Platelet Volume 9.2 fL (7.0-11.0); Mono # (Auto) 0.4 th/mm3 (0.0-0.9); Mono % (Auto) 7.3 % (0.0-8.0); Neut # (Auto) 3.7 th/mm3 (1.8-7.7); Neut % (Auto) 66.3 % (16.0-70.0); Platelet Count 119 th/mm3 (150-450); Red Blood Count 3.78 mil/mm3 (4.50-5.90); Red Cell Distribution Width 14.2 % (11.6-17.2); White Blood Count 5.5 th/mm3 (4.0-11.0)
[2018-02-15 04:45] LABS: Alanine Aminotransferase 22 U/L (12-78); Albumin 2.6 g/dL (3.4-5.0); Anion Gap 8 meq/L (5-15); Aspartate Aminotransferase 34 U/L (15-37); Blood Urea Nitrogen 5 mg/dL (7-18); Calcium 8.6 mg/dL (8.5-10.1); Carbon Dioxide 25.7 meq/L (21.0-32.0); Chloride 109 meq/L (98-107); Glomerular Filtration Rate Greater Than 89 mL/min (>89); Glucose,Random 77 mg/dL (74-106); Magnesium 1.8 mg/dL (1.5-2.5); Potassium 3.8 meq/L (3.5-5.1); Sodium 143 meq/L (136-145)
[2018-02-15 04:48] LABS: Alkaline Phosphatase 82 U/L (45-117); Total Protein 6.6 g/dL (6.4-8.2)
[2018-02-15] MEDS: amLODIPine 10 MG Tablet PO SCH (08:25)
[2018-02-15] MEDS: levETIRAcetam 500 MG Tablet PO SCH ×2 (08:25→22:32)
[2018-02-15] MEDS: Famotidine PF Inj 20 MG/2 ML Vial IV.PUSH SCH ×2 (08:26→22:33)
[2018-02-15] MEDS: Famotidine 20 MG Tablet PO SCH ×2 (08:26→22:32)
[2018-02-15] MEDS: Modafinil 200 MG Tablet PO SCH (08:26)
[2018-02-15] MEDS: QUEtiapine 25 MG Tablet PO SCH ×2 (08:27→22:32)
--- NOTE | 2018-02-15 10:43 | P.PNFP ---
Subjective Interval history: He tells me he is feeling better though he remains confused and is oriented times one. He denies pain. Results - Labs Result diagrams: 02/15/18 04:18 02/15/18 04:15 Abnormal lab results 02/14/18 02/15/18 02/15/18 Range/Units 12:01 04:15 04:18 RBC 3.78 L (4.50-5.90) mil/mm3 Hgb 11.6 L (13.0-17.0) gm/dL Hct 34.3 L (39.0-51.0) % Plt Count 119 L (150-450) th/mm3 Eos % (Auto) 6.9 H (0.0-4.0) % Chloride 109 H (98-107) meq/L BUN 5 L (7-18) mg/dL POC Glucose 117 H (68-110) mg/dl Albumin 2.6 L (3.4-5.0) g/dL Short CBC 02/15/18 Range/Units 04:18 WBC 5.5 (4.0-11.0) th/mm3 Hgb 11.6 L (13.0-17.0) gm/dL Hct 34.3 L (39.0-51.0) % Plt Count 119 L (150-450) th/mm3 BMP 02/15/18 04:15 Sodium 143 Potassium 3.8 Chloride 109 H Carbon Dioxide 25.7 BUN 5 L Creatinine 0.61 Calcium 8.6 Liver Function 02/15/18 Range/Units 04:15 Total Bilirubin 0.9 (0.2-1.0) mg/dL AST 34 (15-37) U/L ALT 22 (12-78) U/L Alkaline Phosphatase 82 (45-117) U/L Albumin 2.6 L (3.4-5.0) g/dL Physical Exam Vital signs: Vital Signs 02/14/18 11:00 02/14/18 11:02 02/14/18 12:00 Temperature 97.6 F Pulse Rate 88 88 88 Respiratory Rate 17 16 15 Blood Pressure 111/77 Pulse Oximetry 98 97 100 02/14/18 12:02 02/14/18 13:00 02/14/18 13:02 Temperature Pulse Rate 90 93 H 90 Respiratory Rate 18 18 13 Blood Pressure 125/72 149/75 H Pulse Oximetry 100 99 99 02/14/18 14:00 02/14/18 14:02 02/14/18 15:00 Temperature Pulse Rate 96 H 97 H 92 H Respiratory Rate 17 20 14 Blood Pressure 108/69 Pulse Oximetry 89 L 97 79 L 02/14/18 15:02 02/14/18 16:00 02/14/18 16:02 Temperature 97.8 F 97.8 F Pulse Rate 91 H 90 89 Respiratory Rate 16 14 15 Blood Pressure 119/79 119/78 Pulse Oximetry 97 98 96 02/14/18 17:00 02/14/18 17:02 02/14/18 18:00 Temperature Pulse Rate 92 H 92 H 97 H Respiratory Rate 14 18 16 Blood Pressure 118/78 Pulse Oximetry 97 95 86 L 02/14/18 18:02 02/14/18 19:00 02/14/18 19:02 Temperature Pulse Rate 96 H 101 H 101 H Respiratory Rate 17 18 17 Blood Pressure 125/86 127/89 Pulse Oximetry 93 L 97 95 02/14/18 20:00 02/14/18 20:02 02/14/18 20:03 Temperature 98.3 F Pulse Rate 101 H 104 H Respiratory Rate 16 24 Blood Pressure 128/102 H Pulse Oximetry 91 L 98 100 02/14/18 21:00 02/14/18 21:02 02/14/18 22:00 Temperature Pulse Rate 100 H 97 H 96 H Respiratory Rate 22 17 18 Blood Pressure 140/93 H Pulse Oximetry 93 L 93 L 92 L 02/14/18 22:02 02/14/18 23:00 02/14/18 23:02 Temperature Pulse Rate 94 H 100 H 102 H Respiratory Rate 15 22 16 Blood Pressure 130/83 134/87 Pulse Oximetry 92 L 99 96 02/15/18 00:00 02/15/18 00:02 02/15/18 01:00 Temperature 98.0 F Pulse Rate 98 H 99 H 104 H Respiratory Rate 18 19 24 Blood Pressure 126/79 Pulse Oximetry 91 L 98 84 L 02/15/18 01:29 02/15/18 02:00 02/15/18 02:02 Temperature Pulse Rate 103 H 100 H 97 H Respiratory Rate 22 25 H 11 L Blood Pressure 135/94 H 139/90 Pulse Oximetry 98 02/15/18 03:00 02/15/18 03:05 02/15/18 04:02 Temperature 98.5 F Pulse Rate 101 H 101 H 92 H Respiratory Rate 21 17 14 Blood Pressure 136/91 H Pulse Oximetry 02/15/18 04:08 02/15/18 05:00 02/15/18 05:02 Temperature Pulse Rate 93 H 92 H 92 H Respiratory Rate 16 17 17 Blood Pressure 139/81 Pulse Oximetry 02/15/18 06:00 02/15/18 06:10 02/15/18 07:00 Temperature Pulse Rate 92 H 89 83 Respiratory Rate 17 17 12 Blood Pressure 134/78 Pulse Oximetry 02/15/18 07:02 02/15/18 08:00 02/15/18 08:02 Temperature 98.7 F Pulse Rate 85 90 94 H Respiratory Rate 15 15 18 Blood Pressure 128/85 152/89 H Pulse Oximetry Intake & Output 02/14/18 02/15/18 02/15/18 18:59 06:59 18:59 Intake Total 300 / 300 540 / 540 Output Total 1350 / 1350 1159 / 1159 Balance -1050 / -1050 -619 / -619 Weight 61.4 kg Intake: IV 300 / 300 300 / 300 Ampicillin Inj 2,000 MG In NS 300 / 300 300 / 300 Inj 100 ML @ 400 mls/hr IV.SIG Q4H [facility] Rx#:[id number] Oral 240 / 240 Output: Urine 1350 / 1350 Urine Amount (Catheter) 1159 / 1159 Coude 1159 / 1159 Other: Date of Last Bowel Movement 02/14/18 02/14/18 02/14/18 # Bowel Movements 1 0 - Constitutional mild distress - Routine HEENT Exam Head: Present: normocephalic, laceration Eye: Present: PERRL, normal accommodation ENT: Present: mucous membranes moist - Routine Neck Exam Present: supple, full ROM - Routine Respiratory Exam Present: CTA bilaterally - Routine Cardiovascular Exam Present: RRR, S1, S2 - Routine Abdominal Exam Present: soft, normoactive bowel sounds - Routine Skin Exam Present: intact - Routine Neurological Exam Present: alert, altered mental status - Detailed Neurological Exam: Coma Scale Eye Opening: Spontaneous Verbal Response: Confused Motor Response: Localizing Mason Coma Scale Total: 13 - Routine Psychiatric Exam Present: visual hallucinations. Absent: normal affect, normal thought process - Urinary Catheter Management 3-way Urethral Cath placed during this visit: yes Reason for continuing: Gross Hematuria Insertion date: 02/09/18 Insertion time: 16:00 Coude Cath placed during this visit: no Assessment and Plan - Assessment (1) Acute subdural hematoma Code(s): S06.5X9A - Traumatic subdural hemorrhage with loss of consciousness of unspecified duration, initial encounter Status: Acute Plan: Cont current management of critical care (2) SIRS (systemic inflammatory response syndrome) Code(s): R65.10 - Systemic inflammatory response syndrome (SIRS) of non- infectious origin without acute organ dysfunction Status: Acute Plan: Cont IV antibiotics as ordered (3) Encephalopathy acute Code(s): G93.40 - Encephalopathy, unspecified Status: Acute Plan: F/U mental status and neuro recommendations (4) Laceration of forehead Code(s): S01.81XA - Laceration without foreign body of other part of head, initial encounter Status: Acute Plan: Right over the eye laceration with intact stitches and no redness, D/C or swelling noted (5) Major neurocognitive disorder due to another medical condition Code(s): F02.80 - Dementia in other diseases classified elsewhere without behavioral disturbance Status: Acute Plan: Cont current critical care management and treatment for SDH and SIRS. (6) Altered mental status Code(s): R41.82 - Altered mental status, unspecified Status: Acute - Assessment and Plan Will monitor daily and assess response to current treatment. (6) Altered mental status Qualifiers: Altered mental status type: somnolence Qualified Code(s): R40.0 - Somnolence
[2018-02-16] MEDS: Oral Hygiene Kit OROPHARYNG SCH ×5 (00:59→23:38)
--- NOTE | 2018-02-16 09:44 | P.PNFP ---
Subjective Interval history: Resting in bed, wrist restraints in place He is alert oriented to self No apparent distress Results - Labs Result diagrams: 02/15/18 04:18 02/15/18 04:15 Abnormal lab results 02/15/18 Range/Units 16:02 POC Glucose 112 H (68-110) mg/dl Physical Exam Vital signs: Vital Signs 02/15/18 10:00 02/15/18 10:02 02/15/18 11:00 Temperature Pulse Rate 107 H 102 H 108 H Respiratory Rate 26 H 17 22 Blood Pressure 126/74 Pulse Oximetry 02/15/18 11:02 02/15/18 12:00 02/15/18 12:02 Temperature 97.3 F L Pulse Rate 109 H 103 H 102 H Respiratory Rate 27 H 22 17 Blood Pressure 103/69 107/65 Pulse Oximetry 02/15/18 13:00 02/15/18 14:00 02/15/18 14:02 Temperature Pulse Rate 91 H 94 H 96 H Respiratory Rate 20 17 20 Blood Pressure 124/85 Pulse Oximetry 02/15/18 15:00 02/15/18 15:02 02/15/18 20:00 Temperature 97.5 F L Pulse Rate 91 H 91 H 100 H Respiratory Rate 17 13 18 Blood Pressure 112/73 115/82 Pulse Oximetry 99 02/15/18 21:00 02/16/18 00:00 02/16/18 03:12 Temperature 98.2 F 98.2 F Pulse Rate 79 79 Respiratory Rate 16 16 18 Blood Pressure 112/66 112/66 Pulse Oximetry 98 98 02/16/18 04:00 Temperature 98.0 F Pulse Rate 78 Respiratory Rate 16 Blood Pressure 129/74 Pulse Oximetry 98 Intake & Output 02/15/18 02/16/18 02/16/18 18:59 06:59 18:59 Intake Total 200 / 200 400 / 400 Balance 200 / 200 400 / 400 Intake: IV 200 / 200 400 / 400 Ampicillin Inj 2,000 MG In NS 200 / 200 400 / 400 Inj 100 ML @ 400 mls/hr IV.SIG Q4H [facility] Rx#:[id number] Other: Date of Last Bowel Movement 02/14/18 - Constitutional no acute distress - Routine HEENT Exam ENT: Present: mucous membranes moist - Routine Respiratory Exam Present: CTA bilaterally - Routine Cardiovascular Exam Present: S1, S2 - Routine Abdominal Exam Present: soft, normoactive bowel sounds - Routine Extremities Exam Present: pulses intact - Routine Skin Exam Present: dry, warm - Routine Neurological Exam Present: alert - Routine Psychiatric Exam Present: cooperative - Urinary Catheter Management 3-way Urethral Cath placed during this visit: yes Reason for continuing: Gross Hematuria Insertion date: 02/09/18 Insertion time: 16:00 Coude Cath placed during this visit: no Assessment and Plan - Assessment (1) Acute subdural hematoma Code(s): S06.5X9A - Traumatic subdural hemorrhage with loss of consciousness of unspecified duration, initial encounter Status: Acute Plan: Cont current management (2) SIRS (systemic inflammatory response syndrome) Code(s): R65.10 - Systemic inflammatory response syndrome (SIRS) of non- infectious origin without acute organ dysfunction Status: Acute Plan: Cont IV antibiotics as ordered (3) Encephalopathy acute Code(s): G93.40 - Encephalopathy, unspecified Status: Acute Plan: F/U mental status and neuro recommendations (4) Laceration of forehead Code(s): S01.81XA - Laceration without foreign body of other part of head, initial encounter Status: Acute Plan: Right over the eye laceration with intact stitches and no redness, D/C or swelling noted (5) Major neurocognitive disorder due to another medical condition Code(s): F02.80 - Dementia in other diseases classified elsewhere without behavioral disturbance Status: Acute Plan: Cont current treatment for SDH and SIRS. - Assessment and Plan Will monitor daily and assess response to current treatment. 02/16/18 Seen in bed, he is in wrist restraints he is oriented to self. he is reported to be impulsive, Cespedes in place, urine clear yellow. VSS afebrile. HGB is stable, BS well controlled. He is on Keppra for seizure precautions, no reported activity,Will check level. Will need placement at DC.
[2018-02-16 10:31] LABS: Alanine Aminotransferase 19 U/L (12-78); Albumin 2.5 g/dL (3.4-5.0); Anion Gap 10 meq/L (5-15); Aspartate Aminotransferase 24 U/L (15-37); Blood Urea Nitrogen 11 mg/dL (7-18); Calcium 8.7 mg/dL (8.5-10.1); Chloride 113 meq/L (98-107); Glomerular Filtration Rate Greater Than 89 mL/min (>89); Glucose,Random 84 mg/dL (74-106); Potassium 3.3 meq/L (3.5-5.1); Sodium 146 meq/L (136-145)
[2018-02-16 10:33] LABS: Alkaline Phosphatase 75 U/L (45-117); Total Protein 6.3 g/dL (6.4-8.2)
[2018-02-16] MEDS: Famotidine 20 MG Tablet PO SCH ×2 (10:37→21:22)
[2018-02-16] MEDS: Modafinil 200 MG Tablet PO SCH (10:37)
[2018-02-16] MEDS: QUEtiapine 25 MG Tablet PO SCH ×2 (10:37→21:25)
[2018-02-16] MEDS: Senna/Docusate Sodium 8.6/50 MG Tablet PO SCH ×2 (10:37→21:22)
[2018-02-16] MEDS: amLODIPine 10 MG Tablet PO SCH (10:37)
[2018-02-16] MEDS: Insulin NovoLOG Aspart Correctional Sugar Inj SQ SCH ×4 (10:38→21:24)
[2018-02-16] MEDS: levETIRAcetam 500 MG Tablet PO SCH ×2 (10:38→21:22)
[2018-02-16] MEDS: Famotidine PF Inj 20 MG/2 ML Vial IV.PUSH SCH (10:38)
--- NOTE | 2018-02-16 18:12 | P.PNIM ---
Subjective Interval history: NOT SEEN coverage frfor Dr Alfaro Physical Exam Vital signs: Last Vital Signs Temp 98.0 F 02/16/18 04:00 Pulse 78 02/16/18 04:00 Resp 16 02/16/18 04:00 BP 129/74 02/16/18 04:00 Pulse Ox 98 02/16/18 04:00 Intake & Output 02/14/18 02/15/18 02/16/18 02/17/18 06:59 06:59 06:59 06:59 Intake Total 1130 / 1130 840 / 840 600 / 600 100 / 100 Output Total 5575 / 5575 3109 / 3109 Balance -4445 / -4445 -2269 / -2269 600 / 600 100 / 100 Weight 61.4 kg Narrative: GEN: Elderly male HEENT: 3 cm linear laceration to right upper forehead near hairline with 5 simple interrupted sutures present; no epistaxis or septal hematoma, no intraoral trauma, no raccoon eyes or Arboleda's sign, pupils 3 mm and briskly reactive bilaterally CARDIO: Tachy, regular PULM: breath sounds present and equal bilaterally ABD/GI: Soft, non-distended EXT/MSK: No apparent extremity trauma SKIN: Warm and well-perfused NEURO: Urinary Catheter Management 3-way Urethral: Cath placed during this visit: yes Urethral indwelling: Yes Reason for continuing: Acute urinary retention Insertion date: 02/09/18 Insertion time: 16:00 Coude: Cath placed during this visit: no Results Labs CBC & Chem 7: 02/15/18 04:18 02/16/18 09:08 Labs: Microbiology 02/12/18 05:38 Blood - Peripheral Aerobic Blood Culture - Preliminary No growth in 4 days 02/12/18 05:38 Blood - Peripheral Anaerobic Blood Culture - Preliminary No growth in 4 days 02/12/18 05:43 Blood - Peripheral Aerobic Blood Culture - Preliminary No growth in 4 days 02/12/18 05:43 Blood - Peripheral Anaerobic Blood Culture - Preliminary No growth in 4 days Imaging Imaging: ITS Impressions Chest X-Ray 02/09/18 16:54 CONCLUSION: 1. Interval intubation and placement of nasogastric tube. 2. No acute cardiopulmonary disease. Cervical Spine CT 02/09/18 20:32 CONCLUSION: 1. Negative trauma CT. Abdomen/Bladder Ultrasound 02/10/18 00:00 CONCLUSION: 1. Mild right hydronephrosis. 2. Distended urinary bladder with avascular debris along the dependent aspect. Given the clinical history this could represent blood clot. Consider follow-up to confirm resolution. There is no blood flow in this structure to suggest that it represents a mass. 3. Cespedes catheter is likely misplaced potentially in the posterior/prostatic urethra. It is not visualized within the bladder and urinary bladder is distended. Head CT 02/10/18 06:00 CONCLUSION: 1. Stable right temporal parietal subdural hematoma. 2. No new findings. . Abdomen/Pelvis CT 02/10/18 18:49 CONCLUSION: 1. Extension of Cespedes catheter outside of the urethral lumen into the left sided perineal soft tissues. Findings indicate traumatic perforation of the urethra. There is gas in the surrounding perineal soft tissues. The Cespedes catheter balloon is inflated in this region outside of the urethral lumen. 2. Distended urinary bladder. 3. Mild prominence of the proximal renal collecting systems without shanelle hydronephrosis. 4. Enlarged prostate. 5. Findings were discussed with the patient's nurse. Assessment and Plan (1) Acute subdural hematoma: Code(s): S06.5X9A - Traumatic subdural hemorrhage with loss of consciousness of unspecified duration, initial encounter Status: Acute (2) SIRS (systemic inflammatory response syndrome): Code(s): R65.10 - Systemic inflammatory response syndrome (SIRS) of non-infectious origin without acute organ dysfunction Status: Acute (3) Encephalopathy acute: Code(s): G93.40 - Encephalopathy, unspecified Status: Acute (4) Laceration of forehead: Code(s): S01.81XA - Laceration without foreign body of other part of head, initial encounter Status: Acute (5) Major neurocognitive disorder due to another medical condition: Code(s): F02.80 - Dementia in other diseases classified elsewhere without behavioral disturbance Status: Acute Plan 62yM presenting with acute encephalopathy, severe sepsis, acute traumatic SDH, urethral injury NEURO: Acute traumatic SDH- stable Acute encephalopathy- improving History of Wernicke's encephalopathy SDH stable, neurosurgery following, no interventions planned Avoid all anticoagulants/ antiplatelets, will need to d/w neurosurgery regarding timing of initiation of DVT prophylaxis Continue Keppra 500 mg BID Thiamine supplementation Restart home modafinil PT/OT evals, out of bed to chair, patient is a fall risk Continue seroquel for agitation Delirium precautions (lights on/ shades up during the day, limit night time disruptions, encourage good sleep hygiene, frequent reorientation, limit deliriogenic meds) Neuropsychology consulted CARDIO: History of hypertension Hold home ASA Restart home dose of amlodipine PULM: Acute hypoxic respiratory failure requiring mechanical ventilation- resolved Incentive spirometer, encourage deep breathing/ coughing Nebs PRN F/E/N: Cardiac diet : Hematuria- resolved Urethral injury urinary retention Cespedes inserted by urology, do not remove Needs outpatient urology follow up after discharge ID: Severe sepsis- improving Gram positive bacteremia (Enterococcus) Persistent lactic acidosis- now resolved Blood cultures from 02/09 growing GPC from 02/09 (4 of 4), repeat cultures from 02/12 have no growth to date ID following, antibiotics de-escalated to ampicillin MSK: Right forehead laceration Remove sutures after 1 week (on or about 02/16/18) Tetanus updated on admission Local wound care PRN PROPHY: SCDs only, heparin contraindicated in the setting of SDH PPI Dc when cleared by ID Progress Note: Quality VTE Deep Vein Thrombosis/Pulmonary Embolism Present on Admission: No _ (1) Laceration of forehead Qualifiers: Encounter type:
[2018-02-16] MEDS ORDERED: Pharmacy Ordered Lab Info OTHER ONE (21:45)
[2018-02-17] MEDS: Oral Hygiene Kit OROPHARYNG SCH ×3 (04:25→15:59)
[2018-02-17 08:28] LABS: Anion Gap 8 meq/L (5-15); Blood Urea Nitrogen 10 mg/dL (7-18); Calcium 8.6 mg/dL (8.5-10.1); Carbon Dioxide 21.7 meq/L (21.0-32.0); Chloride 113 meq/L (98-107); Glomerular Filtration Rate Greater Than 89 mL/min (>89); Glucose,Random 81 mg/dL (74-106); Magnesium 1.9 mg/dL (1.5-2.5); Potassium 3.7 meq/L (3.5-5.1); Sodium 143 meq/L (136-145)
[2018-02-17] MEDS: Senna/Docusate Sodium 8.6/50 MG Tablet PO SCH ×2 (10:45→21:20)
[2018-02-17] MEDS: levETIRAcetam 500 MG Tablet PO SCH ×2 (10:45→21:20)
[2018-02-17] MEDS: QUEtiapine 25 MG Tablet PO SCH ×2 (10:45→21:20)
[2018-02-17] MEDS: Modafinil 200 MG Tablet PO SCH (10:45)
[2018-02-17] MEDS: Famotidine 20 MG Tablet PO SCH ×2 (10:45→21:21)
[2018-02-17] MEDS: Insulin NovoLOG Aspart Correctional Sugar Inj SQ SCH ×4 (10:46→21:43)
[2018-02-17] MEDS: amLODIPine 10 MG Tablet PO SCH (10:46)
--- NOTE | 2018-02-17 15:23 | P.PNIM ---
Subjective Interval history: Follow-up encephalopathy. Cross coverage for Dr. Alfaro. Patient has no new complaints. Discussed with nursing Physical Exam Vital signs: Last Vital Signs Temp 97.4 F L 02/17/18 11:35 Pulse 86 02/17/18 11:35 Resp 20 02/17/18 11:35 BP 121/80 02/17/18 11:35 Pulse Ox 98 02/17/18 11:35 Intake & Output 02/15/18 02/16/18 02/17/18 02/18/18 06:59 06:59 06:59 06:59 Intake Total 840 / 840 600 / 600 1100 / 1100 340 / 340 Output Total 3109 / 3109 950 / 950 Balance -2269 / -2269 600 / 600 150 / 150 340 / 340 Weight 61.4 kg 63 kg Narrative: GEN: Elderly male HEENT: 3 cm linear laceration to right upper forehead near hairline with 5 simple interrupted sutures present; no epistaxis or septal hematoma, no intraoral trauma, no raccoon eyes or Arboleda's sign, pupils 3 mm and briskly reactive bilaterally CARDIO: Regular rate and rhythm PULM: breath sounds present and equal bilaterally ABD/GI: Soft, non-distended EXT/MSK: No apparent extremity trauma SKIN: Warm and well-perfused NEURO: Awake Urinary Catheter Management 3-way Urethral: Cath placed during this visit: yes Urethral indwelling: Yes Reason for continuing: Acute urinary retention Insertion date: 02/09/18 Insertion time: 16:00 Coude: Cath placed during this visit: no Results Labs CBC & Chem 7: 02/15/18 04:18 02/17/18 07:23 Labs: Microbiology 02/12/18 05:38 Blood - Peripheral Aerobic Blood Culture - Final No growth in 5 days 02/12/18 05:38 Blood - Peripheral Anaerobic Blood Culture - Final No growth in 5 days 02/12/18 05:43 Blood - Peripheral Aerobic Blood Culture - Final No growth in 5 days 02/12/18 05:43 Blood - Peripheral Anaerobic Blood Culture - Final No growth in 5 days Assessment and Plan (1) Acute subdural hematoma: Code(s): S06.5X9A - Traumatic subdural hemorrhage with loss of consciousness of unspecified duration, initial encounter Status: Acute (2) SIRS (systemic inflammatory response syndrome): Code(s): R65.10 - Systemic inflammatory response syndrome (SIRS) of non-infectious origin without acute organ dysfunction Status: Acute (3) Encephalopathy acute: Code(s): G93.40 - Encephalopathy, unspecified Status: Acute (4) Laceration of forehead: Code(s): S01.81XA - Laceration without foreign body of other part of head, initial encounter Status: Acute (5) Major neurocognitive disorder due to another medical condition: Code(s): F02.80 - Dementia in other diseases classified elsewhere without behavioral disturbance Status: Acute Plan 62yM presenting with acute encephalopathy, severe sepsis, acute traumatic SDH, urethral injury NEURO: Acute traumatic SDH- stable Acute encephalopathy- improving History of Wernicke's encephalopathy SDH stable, neurosurgery following, no interventions planned Avoid all anticoagulants/ antiplatelets, will need to d/w neurosurgery regarding timing of initiation of DVT prophylaxis Continue Keppra 500 mg BID Thiamine supplementation Restart home modafinil PT/OT evals, out of bed to chair, patient is a fall risk Continue seroquel for agitation Delirium precautions (lights on/ shades up during the day, limit night time disruptions, encourage good sleep hygiene, frequent reorientation, limit deliriogenic meds) Neuropsychology consulted CARDIO: History of hypertension Hold home ASA Restart home dose of amlodipine PULM: Acute hypoxic respiratory failure requiring mechanical ventilation- resolved Incentive spirometer, encourage deep breathing/ coughing Nebs PRN F/E/N: Cardiac diet : Hematuria- resolved Urethral injury urinary retention Cespedes inserted by urology, do not remove Needs outpatient urology follow up after discharge ID: Severe sepsis- improving Gram positive bacteremia (Enterococcus) Persistent lactic acidosis- now resolved Blood cultures from 02/09 growing GPC from 02/09 (4 of 4), repeat cultures from 02/12 no growth to date ID following, antibiotics de-escalated to IV ampicillin MSK: Right forehead laceration Remove sutures after 1 week (on or about 02/16/18) Tetanus updated on admission Local wound care PRN PROPHY: SCDs only, heparin contraindicated in the setting of SDH PPI Dc when cleared by ID Progress Note: Quality VTE Deep Vein Thrombosis/Pulmonary Embolism Present on Admission: No _ (1) Laceration of forehead Qualifiers: Encounter type:
[2018-02-18] MEDS: Oral Hygiene Kit OROPHARYNG SCH ×4 (05:52→17:32)
[2018-02-18] MEDS: QUEtiapine 25 MG Tablet PO SCH ×2 (10:14→21:34)
[2018-02-18] MEDS: Senna/Docusate Sodium 8.6/50 MG Tablet PO SCH ×2 (10:14→21:34)
[2018-02-18] MEDS: amLODIPine 10 MG Tablet PO SCH (10:15)
[2018-02-18] MEDS: Famotidine 20 MG Tablet PO SCH ×2 (10:16→21:34)
[2018-02-18] MEDS: Modafinil 200 MG Tablet PO SCH (10:16)
[2018-02-18] MEDS: levETIRAcetam 500 MG Tablet PO SCH ×2 (10:16→21:34)
--- NOTE | 2018-02-18 15:54 | P.PNIM ---
Subjective Interval history: Follow-up subdural hematoma, encephalopathy and sepsis. States he is okay but remains confused oriented x2. Still on two-point restraints discussed with nursing to discontinue. Discussed with case management, discharge planning when cleared by infectious disease Physical Exam Vital signs: Last Vital Signs Temp 97.7 F 02/18/18 14:20 Pulse 75 02/18/18 14:20 Resp 20 02/18/18 14:20 BP 121/80 02/18/18 14:20 Pulse Ox 96 02/18/18 14:20 Intake & Output 02/16/18 02/17/18 02/18/18 02/19/18 06:59 06:59 06:59 06:59 Intake Total 600 / 600 1100 / 1100 1560 / 1560 100 / 100 Output Total 950 / 950 1900 / 1900 625 / 625 Balance 600 / 600 150 / 150 -340 / -340 -525 / -525 Weight 63 kg 62.8 kg Narrative: GEN: Elderly male HEENT: 3 cm linear laceration to right upper forehead near hairline CARDIO: Regular rate and rhythm PULM: breath sounds present and equal bilaterally ABD/GI: Soft, non-distended EXT/MSK: No apparent extremity trauma SKIN: Warm and well-perfused two-point restraint NEURO: Awake oriented x2 Urinary Catheter Management 3-way Urethral: Cath placed during this visit: yes Urethral indwelling: Yes Reason for continuing: Acute urinary retention Insertion date: 02/09/18 Insertion time: 16:00 Coude: Cath placed during this visit: no Results Labs CBC & Chem 7: 02/15/18 04:18 02/17/18 07:23 Labs: Microbiology 02/12/18 05:38 Blood - Peripheral Aerobic Blood Culture - Final No growth in 5 days 02/12/18 05:38 Blood - Peripheral Anaerobic Blood Culture - Final No growth in 5 days 02/12/18 05:43 Blood - Peripheral Aerobic Blood Culture - Final No growth in 5 days 02/12/18 05:43 Blood - Peripheral Anaerobic Blood Culture - Final No growth in 5 days Assessment and Plan (1) Acute subdural hematoma: Code(s): S06.5X9A - Traumatic subdural hemorrhage with loss of consciousness of unspecified duration, initial encounter Status: Acute (2) SIRS (systemic inflammatory response syndrome): Code(s): R65.10 - Systemic inflammatory response syndrome (SIRS) of non-infectious origin without acute organ dysfunction Status: Acute (3) Encephalopathy acute: Code(s): G93.40 - Encephalopathy, unspecified Status: Acute (4) Laceration of forehead: Code(s): S01.81XA - Laceration without foreign body of other part of head, initial encounter Status: Acute (5) Major neurocognitive disorder due to another medical condition: Code(s): F02.80 - Dementia in other diseases classified elsewhere without behavioral disturbance Status: Acute Plan 62yM presenting with acute encephalopathy, severe sepsis, acute traumatic SDH, urethral injury NEURO: Acute traumatic SDH- stable Acute encephalopathy- improving History of Wernicke's encephalopathy SDH stable, neurosurgery following, no interventions planned Avoid all anticoagulants/ antiplatelets, will need to d/w neurosurgery regarding timing of initiation of DVT prophylaxis Continue Keppra 500 mg BID Thiamine supplementation Restart home modafinil PT/OT evals, out of bed to chair, patient is a fall risk Continue seroquel for agitation Delirium precautions (lights on/ shades up during the day, limit night time disruptions, encourage good sleep hygiene, frequent reorientation, limit deliriogenic meds) Neuropsychology consulted Discontinue restraints CARDIO: History of hypertension Hold home ASA Restart home dose of amlodipine PULM: Acute hypoxic respiratory failure requiring mechanical ventilation- resolved Incentive spirometer, encourage deep breathing/ coughing Nebs PRN F/E/N: Cardiac diet : Hematuria- resolved Urethral injury urinary retention Cespedes inserted by urology, do not remove Needs outpatient urology follow up after discharge ID: Severe sepsis likely secondary to UTI- improving Gram positive bacteremia (Enterococcus) Persistent lactic acidosis- now resolved Blood cultures from 02/09 growing GPC from 02/09 (4 of 4), repeat cultures from 02/12 no growth to date ID following, antibiotics de-escalated to IV ampicillin MSK: Right forehead laceration Tetanus updated on admission Local wound care PRN PROPHY: SCDs only, heparin contraindicated in the setting of SDH PPI Dc when cleared by ID Progress Note: Quality VTE Deep Vein Thrombosis/Pulmonary Embolism Present on Admission: No _ (1) Laceration of forehead Qualifiers: Encounter type:
[2018-02-19] MEDS: Oral Hygiene Kit OROPHARYNG SCH ×4 (00:48→15:55)
--- NOTE | 2018-02-19 08:08 | P.PNNPSY ---
- Progress Notes/Response to Treatment Contents of Sessions: Adjustment, Level of consciousness Time with Patient: 15 minutes Premorbid Psychological Status: Premorbid Cognitive, Emotional and Behavioral Status: Tenuous. 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 The patient has no known prior psychiatric difficulties, as described above. Substance abuse history includes ETOH with history of Wernicke 's encephalopathy. Behavioral Reactions of Patient and Family/Support System: Unable to Assess. The patients family is experiencing ongoing issues of adjustment given the nature of the injury, and this aspect of recovery will require ongoing monitoring. Emotional/Behavioral Status of Patient and Family/Support System: Unable to Assess. Pertinent issues, if appropriate to this patients clinical care, are described in detail above. Maximizing Acute Care Outcome: It is recommended that the patient be monitored for emergent behavioral impulsivity as the medical condition evolves. This patients neuropathological challenges may limit rehabilitation potential going forward, and these challenges will require specialized therapeutic skills to maximize outcome. At this point in the recovery process, the patient does not have cognitive capacity as the patient is unable to understand a situation and its likely consequences, nor is the patient able to manipulate information rationally. Cognitive capacity will be assessed throughout the recovery process. Anticipated Problems: Ongoing areas of concern will include behavioral impulsivity, lack of insight and judgment, which is expected to improve with time and treatment. Treatment Plan: This clinician will continue to follow with you throughout the course of this patients acute care treatment, and I will be available to meet with the patient s family/support system to facilitate their understanding and the ongoing care of their family member. The goals of neuropsychological intervention shall be both educational and supportive to the family/support system as is deemed clinically appropriate. [place] COG Scale: Level V Disinhibition Score: 19.25 Aggression Score: 14.00 Lability Score: 14.00 Agitated Behavior Total Score: 17 Impression: 62 year old man with prior history of major neurocognitive disorder admitted to on transfer with mental status changes, with developed SDH from a fall and now mildly agitated. Progress Note Narrative: PTD 10. The patient remains impulsive and confused, with managed agitation ABS = 17 (19.3,14,14). He is [place] with prior history of major neurocognitive disorder. He is managed on Provigil and Seroquel 50 BID. I will follow. - Diagnosis (1) Major neurocognitive disorder due to another medical condition Status: Acute
[2018-02-19] MEDS: amLODIPine 10 MG Tablet PO SCH (08:32)
[2018-02-19] MEDS: Modafinil 200 MG Tablet PO SCH (08:32)
[2018-02-19] MEDS: QUEtiapine 25 MG Tablet PO SCH ×2 (08:32→21:04)
[2018-02-19] MEDS: Famotidine 20 MG Tablet PO SCH ×2 (08:32→21:03)
[2018-02-19] MEDS: Senna/Docusate Sodium 8.6/50 MG Tablet PO SCH ×2 (08:33→21:04)
[2018-02-19] MEDS: levETIRAcetam 500 MG Tablet PO SCH ×2 (08:33→21:04)
--- NOTE | 2018-02-19 09:49 | P.PNFP ---
Subjective Interval history: Resting in bed, he is alert, confused He still is in wrist restraints Results - Labs Result diagrams: 02/15/18 04:18 02/17/18 07:23 Physical Exam Vital signs: Vital Signs 02/18/18 11:45 02/18/18 12:00 02/18/18 14:20 Temperature 97.8 F 97.7 F Pulse Rate 80 75 Respiratory Rate 20 20 20 Blood Pressure 117/74 121/80 Pulse Oximetry 97 96 02/18/18 16:30 02/18/18 19:46 02/18/18 20:00 Temperature 98.2 F Pulse Rate 78 78 Respiratory Rate 20 18 Blood Pressure 119/70 Pulse Oximetry 98 02/18/18 23:47 02/19/18 00:00 02/19/18 04:00 Temperature 98.1 F 98 F Pulse Rate 86 85 76 Respiratory Rate 18 18 Blood Pressure 112/68 116/69 Pulse Oximetry 96 98 02/19/18 07:00 02/19/18 07:20 02/19/18 08:00 Temperature 97.9 F Pulse Rate 83 75 Respiratory Rate 12 20 Blood Pressure 125/88 Pulse Oximetry 94 L Intake & Output 02/18/18 02/19/18 02/19/18 18:59 06:59 18:59 Intake Total 300 / 300 300 / 300 100 / 100 Output Total 625 / 625 901 / 901 Balance -325 / -325 -601 / -601 100 / 100 Intake: IV 300 / 300 300 / 300 100 / 100 Ampicillin Inj 2,000 MG In NS 300 / 300 300 / 300 100 / 100 Inj 100 ML @ 400 mls/hr IV.SIG Q4H [facility] Rx#:[id number] Output: Urine 625 / 625 900 / 900 Urine/Stool Mix Other: Date of Last Bowel Movement 02/18/18 - Constitutional no acute distress - Routine HEENT Exam Eye: Present: PERRL ENT: Present: mucous membranes moist - Routine Respiratory Exam Present: CTA bilaterally - Routine Cardiovascular Exam Present: S1, S2 - Routine Abdominal Exam Present: soft, normoactive bowel sounds - Routine Skin Exam Present: dry, warm - Routine Neurological Exam Present: alert - Routine Psychiatric Exam Present: cooperative - Urinary Catheter Management 3-way Urethral Cath placed during this visit: yes Urethral indwelling: Yes Reason for continuing: Acute urinary retention Insertion date: 02/09/18 Insertion time: 16:00 Coude Cath placed during this visit: no Reason for continuing: Chronic Urinary Retention Assessment and Plan - Assessment (1) Acute subdural hematoma Code(s): S06.5X9A - Traumatic subdural hemorrhage with loss of consciousness of unspecified duration, initial encounter Status: Acute Plan: Cont current management (2) SIRS (systemic inflammatory response syndrome) Code(s): R65.10 - Systemic inflammatory response syndrome (SIRS) of non- infectious origin without acute organ dysfunction Status: Acute Plan: Cont IV antibiotics as ordered (3) Encephalopathy acute Code(s): G93.40 - Encephalopathy, unspecified Status: Acute Plan: F/U mental status and neuro recommendations (4) Major neurocognitive disorder due to another medical condition Code(s): F02.80 - Dementia in other diseases classified elsewhere without behavioral disturbance Status: Acute Plan: Cont current treatment for SDH and SIRS. - Assessment and Plan Will monitor daily and assess response to current treatment. 02/16/18 Seen in bed, he is in wrist restraints he is oriented to self. he is reported to be impulsive, Cespedes in place, urine clear yellow. VSS afebrile. HGB is stable, BS well controlled. He is on Keppra for seizure precautions, no reported activity,Will check level. Will need placement at DC. 02/19/18-Resting in bed, he is alert but confused. With some reported agitation. He is still in restraints. VSS BS controlled. Dc planning to return to [facility] when cleared by ID.
[2018-02-20] MEDS: Oral Hygiene Kit OROPHARYNG SCH ×4 (02:56→15:04)
[2018-02-20 05:42] LABS: Hematocrit 34.8 % (39.0-51.0); Hemoglobin 11.6 gm/dL (13.0-17.0); Mean Corpuscular HGB Conc 33.3 % (32.0-36.0); Mean Corpuscular Volume 93.1 fL (80.0-100.0); Mean Platelet Volume 9.1 fL (7.0-11.0); Platelet Count 196 th/mm3 (150-450); Red Blood Count 3.74 mil/mm3 (4.50-5.90); Red Cell Distribution Width 14.5 % (11.6-17.2); White Blood Count 6.4 th/mm3 (4.0-11.0)
[2018-02-20 05:56] LABS: Anion Gap 11 meq/L (5-15); Blood Urea Nitrogen 11 mg/dL (7-18); Calcium 8.4 mg/dL (8.5-10.1); Carbon Dioxide 21.1 meq/L (21.0-32.0); Chloride 109 meq/L (98-107); Glomerular Filtration Rate Greater Than 89 mL/min (>89); Glucose,Random 75 mg/dL (74-106); Potassium 3.6 meq/L (3.5-5.1)
[2018-02-20 06:03] LABS: Sodium 141 meq/L (136-145)
[2018-02-20] MEDS: levETIRAcetam 500 MG Tablet PO SCH ×2 (08:19→21:09)
[2018-02-20] MEDS: Senna/Docusate Sodium 8.6/50 MG Tablet PO SCH ×2 (08:19→21:09)
[2018-02-20] MEDS: Modafinil 200 MG Tablet PO SCH (08:19)
[2018-02-20] MEDS: amLODIPine 10 MG Tablet PO SCH (08:19)
[2018-02-20] MEDS: QUEtiapine 25 MG Tablet PO SCH ×2 (08:19→21:09)
[2018-02-20] MEDS: Famotidine 20 MG Tablet PO SCH ×2 (08:20→21:09)
--- NOTE | 2018-02-20 08:24 | P.PNNPSY ---
- Behavior Mild: Impulsive/agitated - Cognitive Severe: Cognitive, Attention/concentration, Confused/orientation, Insight/ awareness, Judgment/problem solving, Memory - Progress Notes/Response to Treatment Contents of Sessions: Adjustment, Level of consciousness Time with Patient: 15 minutes Premorbid Psychological Status: Premorbid Cognitive, Emotional and Behavioral Status: Tenuous. 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 The patient has no known prior psychiatric difficulties, as described above. Substance abuse history includes ETOH with history of Wernicke 's encephalopathy. Behavioral Reactions of Patient and Family/Support System: Unable to Assess. The patients family is experiencing ongoing issues of adjustment given the nature of the injury, and this aspect of recovery will require ongoing monitoring. Emotional/Behavioral Status of Patient and Family/Support System: Unable to Assess. Pertinent issues, if appropriate to this patients clinical care, are described in detail above. Maximizing Acute Care Outcome: It is recommended that the patient be monitored for emergent behavioral impulsivity as the medical condition evolves. This patients neuropathological challenges may limit rehabilitation potential going forward, and these challenges will require specialized therapeutic skills to maximize outcome. At this point in the recovery process, the patient does not have cognitive capacity as the patient is unable to understand a situation and its likely consequences, nor is the patient able to manipulate information rationally. Cognitive capacity will be assessed throughout the recovery process. Anticipated Problems: Ongoing areas of concern will include behavioral impulsivity, lack of insight and judgment, which is expected to improve with time and treatment. Treatment Plan: This clinician will continue to follow with you throughout the course of this patients acute care treatment, and I will be available to meet with the patient s family/support system to facilitate their understanding and the ongoing care of their family member. The goals of neuropsychological intervention shall be both educational and supportive to the family/support system as is deemed clinically appropriate. Disinhibition Score: 19.25 Aggression Score: 14.00 Lability Score: 14.00 Agitated Behavior Total Score: 17 Impression: 62 year old man with prior history of major neurocognitive disorder admitted to on transfer with mental status changes, with developed SDH from a fall and now mildly agitated. Progress Note Narrative: PTD 11. The patient remains confused and impulsive, although agitation is less of an issue with recent ABS scores of 17 (19.3,14,14), which is below clinical significance. He remains on Keppra, Provigil and Seroquel. Disposition is pending. I will follow. - Diagnosis (1) Major neurocognitive disorder due to another medical condition Status: Acute
--- NOTE | 2018-02-20 10:45 | P.PNFP ---
Subjective Interval history: In bed, appears comfortable. he is pleasant, oriented to self Wrist restraints in place Results - Labs Result diagrams: 02/20/18 05:28 02/20/18 05:28 Abnormal lab results 02/20/18 02/20/18 Range/Units 05:28 05:28 RBC 3.74 L (4.50-5.90) mil/mm3 Hgb 11.6 L (13.0-17.0) gm/dL Hct 34.8 L (39.0-51.0) % Chloride 109 H (98-107) meq/L Calcium 8.4 L (8.5-10.1) mg/dL Short CBC 02/20/18 Range/Units 05:28 WBC 6.4 (4.0-11.0) th/mm3 Hgb 11.6 L (13.0-17.0) gm/dL Hct 34.8 L (39.0-51.0) % Plt Count 196 D (150-450) th/mm3 BMP 02/20/18 05:28 Sodium 141 Potassium 3.6 Chloride 109 H Carbon Dioxide 21.1 BUN 11 Creatinine 0.65 Calcium 8.4 L Physical Exam Vital signs: Vital Signs 02/19/18 11:40 02/19/18 13:47 02/19/18 15:50 Temperature 98.0 F 98.0 F Pulse Rate 86 85 86 Respiratory Rate 20 20 Blood Pressure 115/72 106/66 Pulse Oximetry 100 99 02/19/18 17:02 02/19/18 17:13 02/19/18 20:00 Temperature 98.3 F Pulse Rate 86 85 Respiratory Rate 12 20 Blood Pressure 117/74 Pulse Oximetry 98 02/19/18 22:00 02/20/18 00:00 02/20/18 04:00 Temperature 97.1 F L 98.2 F Pulse Rate 86 91 H Respiratory Rate 16 20 16 Blood Pressure 117/69 120/80 Pulse Oximetry 100 100 02/20/18 07:00 02/20/18 08:00 Temperature 97.3 F L Pulse Rate 84 Respiratory Rate 12 18 Blood Pressure 130/71 Pulse Oximetry 97 Intake & Output 02/19/18 02/20/18 02/20/18 18:59 06:59 18:59 Intake Total 540 / 540 200 / 200 100 / 100 Output Total 400 / 400 650 / 650 Balance 140 / 140 -450 / -450 100 / 100 Weight 62.4 kg Intake: IV 300 / 300 200 / 200 100 / 100 Ampicillin Inj 2,000 MG In NS 300 / 300 200 / 200 100 / 100 Inj 100 ML @ 400 mls/hr IV.SIG Q4H [facility] [place] Rx#:[id number] Oral 240 / 240 Output: Urine 650 / 650 Urine Amount (Catheter) 400 / 400 Coude 400 / 400 Other: Date of Last Bowel Movement 02/18/18 - Constitutional no acute distress - Routine HEENT Exam ENT: Present: mucous membranes moist - Routine Neck Exam Present: trachea midline - Routine Respiratory Exam Present: CTA bilaterally - Routine Cardiovascular Exam Present: S1, S2 - Routine Abdominal Exam Present: soft, normoactive bowel sounds - Routine Skin Exam Present: dry, warm - Routine Neurological Exam Present: alert - Urinary Catheter Management 3-way Urethral Cath placed during this visit: yes Urethral indwelling: Yes Reason for continuing: Acute urinary retention Insertion date: 02/09/18 Insertion time: 16:00 Coude Cath placed during this visit: no Reason for continuing: Chronic Urinary Retention Assessment and Plan - Assessment (1) Acute subdural hematoma Code(s): S06.5X9A - Traumatic subdural hemorrhage with loss of consciousness of unspecified duration, initial encounter Status: Acute Plan: Cont current management (2) Severe sepsis Code(s): A41.9 - Sepsis, unspecified organism; R65.20 - Severe sepsis without septic shock Status: Acute Plan: Gram positive bacteremia (Enterococcus) Blood cultures from 02/09 growing GPC from 02/09 (4 of 4), repeat cultures from 02/12 no growth final ID following, per noted cont ampicillin x 2 weeks if BC negative (3) Encephalopathy acute Code(s): G93.40 - Encephalopathy, unspecified Status: Acute Plan: F/U mental status and neuro recommendations (4) Major neurocognitive disorder due to another medical condition Code(s): F02.80 - Dementia in other diseases classified elsewhere without behavioral disturbance Status: Acute Plan: Cont current treatment for SDH and SIRS. - Assessment and Plan Will monitor daily and assess response to current treatment. 02/16/18 Seen in bed, he is in wrist restraints he is oriented to self. he is reported to be impulsive, Cespedes in place, urine clear yellow. VSS afebrile. HGB is stable, BS well controlled. He is on Keppra for seizure precautions, no reported activity,Will check level. Will need placement at DC. 02/19/18-Resting in bed, he is alert but confused. With some reported agitation. He is still in restraints. VSS BS controlled. Dc planning to return to [facility] when cleared by ID. 02/20/18- Found in bed, he is alert and oriented to self. Vss. He is on Ampicillin q4. Per ID noted if BC negative he can cont antibiotics x 2 weeks, which put stop date at 02/27/17. He can be Dc once arrangements made. 3008 on chart.
[2018-02-21] MEDS: Oral Hygiene Kit OROPHARYNG SCH ×4 (03:14→17:09)
[2018-02-21] MEDS: Famotidine 20 MG Tablet PO SCH ×2 (08:46→20:45)
[2018-02-21] MEDS: QUEtiapine 25 MG Tablet PO SCH ×2 (08:46→20:45)
[2018-02-21] MEDS: Modafinil 200 MG Tablet PO SCH (08:46)
[2018-02-21] MEDS: Senna/Docusate Sodium 8.6/50 MG Tablet PO SCH ×2 (08:47→20:45)
[2018-02-21] MEDS: levETIRAcetam 500 MG Tablet PO SCH ×2 (08:47→20:45)
[2018-02-21] MEDS: amLODIPine 10 MG Tablet PO SCH (09:00)
--- NOTE | 2018-02-21 12:51 | P.PNFP ---
Subjective Interval history: He is awake, alert, conversive and in NAD. Results - Labs Result diagrams: 02/20/18 05:28 02/20/18 05:28 Physical Exam Vital signs: Vital Signs 02/20/18 13:07 02/20/18 15:15 02/20/18 16:00 Temperature 97.8 F Pulse Rate 82 Respiratory Rate 12 12 18 Blood Pressure 112/73 Pulse Oximetry 100 02/20/18 18:02 02/20/18 20:00 02/21/18 00:00 Temperature 98.4 F 98.7 F Pulse Rate 77 79 Respiratory Rate 12 16 16 Blood Pressure 126/77 119/69 Pulse Oximetry 92 L 100 02/21/18 04:00 02/21/18 07:45 02/21/18 11:00 Temperature 97.3 F L 98.1 F 98.1 F Pulse Rate 80 83 82 Respiratory Rate 16 20 20 Blood Pressure 118/69 117/74 104/72 Pulse Oximetry 100 99 93 L Intake & Output 02/20/18 02/21/18 02/21/18 18:59 06:59 18:59 Intake Total 640 / 640 200 / 200 200 / 200 Output Total 1200 / 1200 Balance 640 / 640 -1000 / -1000 200 / 200 Weight 60.7 kg Intake: IV 400 / 400 200 / 200 200 / 200 Ampicillin Inj 2,000 MG In NS 400 / 400 200 / 200 200 / 200 Inj 100 ML @ 400 mls/hr IV.SIG Q4H [facility] Rx#:[id number] Oral 240 / 240 Output: Urine 1200 / 1200 Other: Date of Last Bowel Movement 02/18/18 - Constitutional no acute distress - Routine HEENT Exam Head: Present: normocephalic Eye: Present: normal accommodation ENT: Present: mucous membranes moist Comments: intact sutures over right eye - Routine Neck Exam Present: supple, full ROM - Routine Respiratory Exam Present: CTA bilaterally - Routine Cardiovascular Exam Present: RRR, S1, S2, murmur - Routine Abdominal Exam Present: soft, normoactive bowel sounds - Routine Extremities Exam Present: full ROM - Routine Skin Exam Present: intact - Routine Neurological Exam Present: alert - Detailed Neurological Exam: Coma Scale Eye Opening: Spontaneous Verbal Response: Oriented Motor Response: Obey commands [place] Coma Scale Total: 15 - Routine Psychiatric Exam Present: good judgment - Urinary Catheter Management 3-way Urethral Cath placed during this visit: yes Urethral indwelling: Yes Reason for continuing: Acute urinary retention Insertion date: 02/09/18 Insertion time: 16:00 Coude Cath placed during this visit: no Reason for continuing: Chronic Urinary Retention Assessment and Plan - Assessment (1) Acute subdural hematoma Code(s): S06.5X9A - Traumatic subdural hemorrhage with loss of consciousness of unspecified duration, initial encounter Status: Acute Plan: Cont current management (2) Severe sepsis Code(s): A41.9 - Sepsis, unspecified organism; R65.20 - Severe sepsis without septic shock Status: Acute Plan: Gram positive bacteremia (Enterococcus) Blood cultures from 02/09 growing GPC from 02/09 (4 of 4), repeat cultures from 02/12 no growth final ID following, per noted cont ampicillin x 2 weeks if BC negative (3) Encephalopathy acute Code(s): G93.40 - Encephalopathy, unspecified Status: Acute Plan: F/U mental status and neuro recommendations (4) Major neurocognitive disorder due to another medical condition Code(s): F02.80 - Dementia in other diseases classified elsewhere without behavioral disturbance Status: Acute Plan: Cont current treatment for SDH and SIRS. - Assessment and Plan Will monitor daily and assess response to current treatment. 02/16/18 Seen in bed, he is in wrist restraints he is oriented to self. he is reported to be impulsive, Cespedes in place, urine clear yellow. VSS afebrile. HGB is stable, BS well controlled. He is on Keppra for seizure precautions, no reported activity,Will check level. Will need placement at DC. 02/19/18-Resting in bed, he is alert but confused. With some reported agitation. He is still in restraints. VSS BS controlled. Dc planning to return to [facility] when cleared by ID. 02/20/18- Found in bed, he is alert and oriented to self. Vss. He is on Ampicillin q4. Per ID noted if BC negative he can cont antibiotics x 2 weeks, which put stop date at 02/27/17. He can be Dc once arrangements made. 3008 on chart. 02/21/18 - He is much more alert than when I last saw him a week ago and is conversive. He is without complaints except he says he is "tired". Plan to cont antibiotics as ordered then for D/C to SNF when cleared.
[2018-02-22] MEDS: Senna/Docusate Sodium 8.6/50 MG Tablet PO SCH ×2 (09:17→20:52)
[2018-02-22] MEDS: levETIRAcetam 500 MG Tablet PO SCH ×2 (09:17→20:51)
[2018-02-22] MEDS: Modafinil 200 MG Tablet PO SCH (09:17)
[2018-02-22] MEDS: Famotidine 20 MG Tablet PO SCH ×2 (09:17→20:52)
[2018-02-22] MEDS: QUEtiapine 25 MG Tablet PO SCH ×2 (09:17→20:51)
[2018-02-22] MEDS: amLODIPine 10 MG Tablet PO SCH (09:18)
--- NOTE | 2018-02-22 10:51 | P.PNFP ---
Subjective Interval history: He is awake conversive though still lethargic. Results - Labs Result diagrams: 02/20/18 05:28 02/20/18 05:28 Physical Exam Vital signs: Vital Signs 02/21/18 11:00 02/21/18 12:00 02/21/18 15:35 Temperature 98.1 F 98.1 F Pulse Rate 82 77 Respiratory Rate 20 16 20 Blood Pressure 104/72 114/67 Pulse Oximetry 93 L 98 02/21/18 16:00 02/21/18 20:00 02/22/18 00:00 Temperature 98.5 F 98.3 F Pulse Rate 86 80 83 Respiratory Rate 20 20 Blood Pressure 120/72 119/73 Pulse Oximetry 100 99 02/22/18 00:05 02/22/18 04:00 02/22/18 06:08 Temperature 98.5 F Pulse Rate 84 78 86 Respiratory Rate 20 Blood Pressure 137/67 Pulse Oximetry 97 02/22/18 08:11 Temperature 97.5 F L Pulse Rate 75 Respiratory Rate 18 Blood Pressure 115/69 Pulse Oximetry 98 Intake & Output 02/21/18 02/22/18 02/22/18 18:59 06:59 18:59 Intake Total 400 / 400 220 / 220 Output Total 750 / 750 Balance 400 / 400 -530 / -530 Weight 61.7 kg Intake: IV 400 / 400 100 / 100 Ampicillin Inj 2,000 MG In NS 400 / 400 100 / 100 Inj 100 ML @ 400 mls/hr IV.SIG Q4H [facility] Rx#:[id number] Oral 120 / 120 Output: Urine 750 / 750 Other: Date of Last Bowel Movement 02/18/18 - Constitutional no acute distress - Routine HEENT Exam Head: Present: normocephalic, laceration Eye: Present: PERRL, normal accommodation ENT: Present: mucous membranes moist - Routine Neck Exam Present: supple - Routine Respiratory Exam Present: CTA bilaterally - Routine Cardiovascular Exam Present: RRR, S1, S2 - Routine Abdominal Exam Present: soft, normoactive bowel sounds - Routine Skin Exam Present: intact - Routine Neurological Exam Present: altered mental status, moving all extremities - Detailed Neurological Exam: Coma Scale Eye Opening: Spontaneous Verbal Response: Oriented Motor Response: Obey commands [place] Coma Scale Total: 15 - Routine Psychiatric Exam Present: normal affect - Urinary Catheter Management 3-way Urethral Cath placed during this visit: yes Urethral indwelling: Yes Reason for continuing: Acute urinary retention Insertion date: 02/09/18 Insertion time: 16:00 Coude Cath placed during this visit: no Reason for continuing: Chronic Urinary Retention Assessment and Plan - Assessment (1) Acute subdural hematoma Code(s): S06.5X9A - Traumatic subdural hemorrhage with loss of consciousness of unspecified duration, initial encounter Status: Acute Plan: Cont current management (2) Severe sepsis Code(s): A41.9 - Sepsis, unspecified organism; R65.20 - Severe sepsis without septic shock Status: Acute Plan: Gram positive bacteremia (Enterococcus) Blood cultures from 02/09 growing GPC from 02/09 (4 of 4), repeat cultures from 02/12 no growth final ID following, per noted cont ampicillin x 2 weeks if BC negative (3) Encephalopathy acute Code(s): G93.40 - Encephalopathy, unspecified Status: Acute Plan: F/U mental status and neuro recommendations (4) Major neurocognitive disorder due to another medical condition Code(s): F02.80 - Dementia in other diseases classified elsewhere without behavioral disturbance Status: Acute Plan: Cont current treatment for SDH and SIRS. - Assessment and Plan Will monitor daily and assess response to current treatment. 02/16/18 Seen in bed, he is in wrist restraints he is oriented to self. he is reported to be impulsive, Cespedes in place, urine clear yellow. VSS afebrile. HGB is stable, BS well controlled. He is on Keppra for seizure precautions, no reported activity,Will check level. Will need placement at DC. 02/19/18-Resting in bed, he is alert but confused. With some reported agitation. He is still in restraints. VSS BS controlled. Dc planning to return to Snf when cleared by ID. 02/20/18- Found in bed, he is alert and oriented to self. Vss. He is on Ampicillin q4. Per ID noted if BC negative he can cont antibiotics x 2 weeks, which put stop date at 02/27/17. He can be Dc once arrangements made. 3008 on chart. 02/21/18 - He is much more alert than when I last saw him a week ago and is conversive. He is without complaints except he says he is "tired". Plan to cont antibiotics as ordered then for D/C to SNF when cleared. 02/22/18 - Per CM last week he has been accepted back at the SNF pending finishing IV antibiotics and clearance from ID. He is afebrile with stable VS.
[2018-02-22] MEDS: Oral Hygiene Kit OROPHARYNG SCH ×4 (13:40→20:52)
[2018-02-23] MEDS: Oral Hygiene Kit OROPHARYNG SCH ×5 (02:04→23:21)
[2018-02-23] MEDS: Modafinil 200 MG Tablet PO SCH (09:02)
[2018-02-23] MEDS: Famotidine 20 MG Tablet PO SCH ×2 (09:03→21:33)
[2018-02-23] MEDS: QUEtiapine 25 MG Tablet PO SCH ×2 (09:03→21:33)
[2018-02-23] MEDS: levETIRAcetam 500 MG Tablet PO SCH ×2 (09:03→21:33)
[2018-02-23] MEDS: Senna/Docusate Sodium 8.6/50 MG Tablet PO SCH ×2 (09:03→21:33)
[2018-02-23] MEDS: amLODIPine 10 MG Tablet PO SCH (09:04)
--- NOTE | 2018-02-23 11:04 | P.PNIM ---
Subjective Interval history: 62-year-old gentleman admitted status post fall with right subdural hematoma and found to have sepsis, acute respiratory failure and urethral perforation pt seen and examined, doing ok, denies pain, denies sob, or nv, still very confused, thinks he is in [place]. Physical Exam Vital signs: Last Vital Signs Temp 97.5 F L 02/23/18 07:20 Pulse 83 02/23/18 07:20 Resp 14 02/23/18 08:00 BP 130/70 02/23/18 07:20 Pulse Ox 92 L 02/23/18 07:20 Intake & Output 02/21/18 02/22/18 02/23/18 02/24/18 06:59 06:59 06:59 06:59 Intake Total 840 / 840 620 / 620 400 / 400 100 / 100 Output Total 1200 / 1200 750 / 750 500 / 500 Balance -360 / -360 -130 / -130 -100 / -100 100 / 100 Weight 60.7 kg 61.7 kg 61.7 kg Chronically ill-appearing 62-year-old thin white male laceration to right forehead without erythema, sutures in place Awake, alert, follows, confused Heart S1-S2 regular Lungs clear no wheeze no rhonchi decreased breath sounds Abdomen soft nondistended positive bowel sounds nontender Extremities no clubbing cyanosis no edema Urinary Catheter Management 3-way Urethral: Cath placed during this visit: yes Urethral indwelling: Yes Reason for continuing: Gross Hematuria Insertion date: 02/09/18 Insertion time: 16:00 Coude: Cath placed during this visit: no Results Labs CBC & Chem 7: 02/20/18 05:28 02/20/18 05:28 Assessment and Plan (1) Major neurocognitive disorder due to another medical condition: Code(s): F02.80 - Dementia in other diseases classified elsewhere without behavioral disturbance Status: Acute Plan SEVERE SEPSIS due to uti resolved. ENTEROCOCCUS BACTEREMIA due to complicated UTI-continue ampicillin times 2 weeks total last day would be Feb 27, repeat bc negative p 5 d. ACUTE SDH due to trauma/fall prior to admission - nonsurgical, stable, continue to hold any anticoagulation, keppra sz prophlyaxis LACERATION to forehead continue wound care, stable remove kathia days 10? DEMENTIA with behavioral disturbance continue as per neuropsychiatry HTN controlled continue norvasc, ACUTE HYPOXIC RESP FAILURE resolved ACUTE URETHRAL PERFORATION/Cespedes traumacontinue Cespedes outpatient follow-up with urology BPH w urinary retention, flomax, fu w urology dvt prophylaxis - scd DISPO - return to snf complete iv abx. Progress Note: Quality VTE Deep Vein Thrombosis/Pulmonary Embolism Present on Admission: No
--- NOTE | 2018-02-23 15:32 | P.PNIM ---
Physical Exam Vital signs: Last Vital Signs Temp 97.3 F L 02/23/18 12:00 Pulse 90 02/23/18 12:00 Resp 14 02/23/18 12:00 BP 108/68 02/23/18 12:00 Pulse Ox 98 02/23/18 12:00 Intake & Output 02/21/18 02/22/18 02/23/18 02/24/18 06:59 06:59 06:59 06:59 Intake Total 840 / 840 620 / 620 400 / 400 200 / 200 Output Total 1200 / 1200 750 / 750 500 / 500 Balance -360 / -360 -130 / -130 -100 / -100 200 / 200 Weight 60.7 kg 61.7 kg 61.7 kg Urinary Catheter Management 3-way Urethral: Cath placed during this visit: yes Urethral indwelling: Yes Insertion date: 02/09/18 Insertion time: 16:00 Coude: Cath placed during this visit: no Results Labs CBC & Chem 7: 02/20/18 05:28 02/20/18 05:28 Assessment and Plan (1) Major neurocognitive disorder due to another medical condition: Code(s): F02.80 - Dementia in other diseases classified elsewhere without behavioral disturbance Status: Acute Plan SEVERE SEPSIS due to uti resolved. ENTEROCOCCUS BACTEREMIA due to complicated UTI-continue ampicillin times 2 weeks total last day would be Feb 27, repeat bc negative p 5 d. ACUTE SDH due to trauma/fall prior to admission - nonsurgical, stable, continue to hold any anticoagulation, keppra sz prophlyaxis LACERATION to forehead continue wound care, stable remove kathia days 10? DEMENTIA with behavioral disturbance continue as per neuropsychiatry HTN controlled continue norvasc, ACUTE HYPOXIC RESP FAILURE resolved ACUTE URETHRAL PERFORATION/Cespedes traumacontinue Cespedes outpatient follow-up with urology BPH w urinary retention, flomax, fu w urology dvt prophylaxis - scd DISPO - return to snf complete iv abx. Progress Note: Quality VTE Deep Vein Thrombosis/Pulmonary Embolism Present on Admission: No
--- NOTE | 2018-02-23 18:49 | P.PNID ---
Subjective Remarks: stable and afebrile growing 4/4 enterococcus and in urine as well, amp S Antibiotics: vanco Allergies/Adverse Reactions: Allergies codeine Allergy (Severe, Unverified 12/12/17 13:15) PASSES OUT Objective Vital Signs 02/22/18 20:00 02/23/18 00:00 02/23/18 00:07 Temperature 98 F 98 F Pulse Rate 89 84 83 Respiratory Rate 18 18 Blood Pressure 126/71 123/68 Pulse Oximetry 97 97 02/23/18 04:00 02/23/18 05:03 02/23/18 07:20 Temperature 98 F 97.5 F L Pulse Rate 86 82 83 Respiratory Rate 18 20 Blood Pressure 129/79 130/70 Pulse Oximetry 97 92 L 02/23/18 08:00 02/23/18 12:00 02/23/18 16:00 Temperature 97.3 F L 97.3 F L Pulse Rate 90 90 Respiratory Rate 14 14 20 Blood Pressure 108/68 108/68 Pulse Oximetry 98 98 Intake & Output 02/22/18 02/23/18 02/23/18 18:59 06:59 18:59 Intake Total 100 / 100 300 / 300 300 / 300 Output Total 500 / 500 Balance 100 / 100 -200 / -200 300 / 300 Weight 61.7 kg Intake: IV 100 / 100 300 / 300 300 / 300 Ampicillin Inj 2,000 MG In NS 100 / 100 300 / 300 300 / 300 Inj 100 ML @ 400 mls/hr IV.SIG Q4H [facility] Rx#:[id number] Output: Urine 500 / 500 Other: Date of Last Bowel Movement 02/18/18 02/19/18 Imaging: ITS Impressions Chest X-Ray 02/09/18 16:54 CONCLUSION: 1. Interval intubation and placement of nasogastric tube. 2. No acute cardiopulmonary disease. Cervical Spine CT 02/09/18 20:32 CONCLUSION: 1. Negative trauma CT. Abdomen/Bladder Ultrasound 02/10/18 00:00 CONCLUSION: 1. Mild right hydronephrosis. 2. Distended urinary bladder with avascular debris along the dependent aspect. Given the clinical history this could represent blood clot. Consider follow-up to confirm resolution. There is no blood flow in this structure to suggest that it represents a mass. 3. Montemayor catheter is likely misplaced potentially in the posterior/prostatic urethra. It is not visualized within the bladder and urinary bladder is distended. Head CT 02/10/18 06:00 CONCLUSION: 1. Stable right temporal parietal subdural hematoma. 2. No new findings. . Abdomen/Pelvis CT 02/10/18 18:49 CONCLUSION: 1. Extension of Montemayor catheter outside of the urethral lumen into the left sided perineal soft tissues. Findings indicate traumatic perforation of the urethra. There is gas in the surrounding perineal soft tissues. The Montemayor catheter balloon is inflated in this region outside of the urethral lumen. 2. Distended urinary bladder. 3. Mild prominence of the proximal renal collecting systems without shanelle hydronephrosis. 4. Enlarged prostate. 5. Findings were discussed with the patient's nurse. Physical Exam: GENERAL: NAD sedated SKIN: Warm and dry. HEAD: Atraumatic. Normocephalic. EYES: Pupils equal and round. No scleral icterus. No injection or drainage. ENT: No nasal bleeding or discharge. Mucous membranes pink and moist. NECK: Trachea midline. No JVD. CARDIOVASCULAR: Regular rate and rhythm. RESPIRATORY: No accessory muscle use. Clear to auscultation. Breath sounds equal bilaterally. GASTROINTESTINAL: Abdomen soft, non-tender, mildly distended. Hepatic and splenic margins not palpable. : montemayor in place with clear light yellow urine MUSCULOSKELETAL: Extremities without clubbing, cyanosis, or edema. NEUROLOGICAL: awake alert confused, not much interaction PSYCHIATRIC: calm Assessment and Plan - Plan sp fall resulted in subdural hematoma BPH, urinary retention, montemayor trauma High grade enterococcaul bactremia, sepsis [facility] 2/2 UTI in the settings of urinary retention with BPH othre source ounfd be endocartditis however pt has no clinical findings sugg of endocarditis and has alternative diagnosis sepsis clin resol;dianne HIgh lactic acidosis, improved Pt is stable and improving sp Urethral trauma with montemayor in false passage: montemayor placement corrected by urologuist cont ampicillin x 2 weeks from 1st neg BC if repeat BC remains negative anticipate 2 weeks of abx
[2018-02-24] MEDS: Oral Hygiene Kit OROPHARYNG SCH ×3 (04:40→15:47)
[2018-02-24] MEDS: Modafinil 200 MG Tablet PO SCH (09:46)
[2018-02-24] MEDS: QUEtiapine 25 MG Tablet PO SCH ×2 (09:47→22:04)
[2018-02-24] MEDS: Senna/Docusate Sodium 8.6/50 MG Tablet PO SCH ×2 (09:47→22:04)
[2018-02-24] MEDS: amLODIPine 10 MG Tablet PO SCH (09:47)
[2018-02-24] MEDS: Famotidine 20 MG Tablet PO SCH ×2 (09:48→22:04)
[2018-02-24] MEDS: levETIRAcetam 500 MG Tablet PO SCH ×2 (09:59→22:04)
--- NOTE | 2018-02-24 21:11 | P.PNIM ---
Subjective Interval history: 62-year-old gentleman admitted status post fall sustaining right subdural hematoma, found to have sepsis, due to enterococcal UTI, and bacteremia, as well as respiratory failure that has resolved and urethral perforation with Cespedes placed trauma, and hematuria, now with required indwelling Cespedes placed per urology Patient seen and examined, remains demented but very calm, no distress, pleasant , Physical Exam Vital signs: Last Vital Signs Temp 98.2 F 02/24/18 20:00 Pulse 81 02/24/18 20:00 Resp 18 02/24/18 20:00 BP 134/86 02/24/18 20:00 Pulse Ox 100 02/24/18 20:00 Intake & Output 02/22/18 02/23/18 02/24/18 02/25/18 06:59 06:59 06:59 06:59 Intake Total 620 / 620 400 / 400 921 / 921 1050 / 1050 Output Total 750 / 750 500 / 500 603 / 603 300 / 300 Balance -130 / -130 -100 / -100 318 / 318 750 / 750 Weight 61.7 kg 61.7 kg 60 kg chronically ill-appearing 62-year-old thin white male laceration right forehead without erythema, sutures in place, Awake alert pleasant, confused, Heart S1-S2 regular Lungs clear no wheeze no rhonchi fair air movement Abdomen soft nondistended positive bowel sounds no tenderness Extremities no clubbing cyanosis no edema Urinary Catheter Management 3-way Urethral: Cath placed during this visit: yes Urethral indwelling: Yes Reason for continuing: Gross Hematuria Insertion date: 02/09/18 Insertion time: 16:00 Coude: Cath placed during this visit: no Results Labs CBC & Chem 7: 02/20/18 05:28 02/20/18 05:28 Assessment and Plan (1) Major neurocognitive disorder due to another medical condition: Code(s): F02.80 - Dementia in other diseases classified elsewhere without behavioral disturbance Status: Acute Plan SEVERE SEPSIS due to enterococcal UTI resolved. ENTEROCOCCUS BACTEREMIA due to complicated UTI-continue ampicillin IV times 2 weeks past negative blood cultures from 02/12/18, ampicillin started 02/13/18, last day would be Feb 27, to complete course of therapy recommended. ACUTE SDH due to trauma/fall prior to admission - nonsurgical, stable, continue to hold any anticoagulation, keppra sz prophlyaxis LACERATION to forehead continue wound care, per ER documentation sutures placed prior to admission present on 02/09/2018, okay to remove them, continue local wound care DEMENTIA with behavioral disturbance continue as per neuropsychiatry HTN controlled continue norvasc, ACUTE HYPOXIC RESP FAILURE resolved ACUTE HEMATURIA DUE TO URETHRAL PERFORATION/Cespedes traumacontinue Cespedes outpatient follow-up with urology BPH w urinary retention, flomax, fu w urology dvt prophylaxis - scd DISPO - return to snf, to complete IV antibiotics. Progress Note: Quality VTE Deep Vein Thrombosis/Pulmonary Embolism Present on Admission: No
[2018-02-25] MEDS: Oral Hygiene Kit OROPHARYNG SCH ×4 (01:31→15:31)
[2018-02-25] MEDS: Modafinil 200 MG Tablet PO SCH (09:34)
[2018-02-25] MEDS: QUEtiapine 25 MG Tablet PO SCH ×2 (09:34→23:14)
[2018-02-25] MEDS: Famotidine 20 MG Tablet PO SCH ×2 (09:34→23:13)
[2018-02-25] MEDS: levETIRAcetam 500 MG Tablet PO SCH ×2 (09:34→23:12)
[2018-02-25] MEDS: Senna/Docusate Sodium 8.6/50 MG Tablet PO SCH ×2 (09:34→23:13)
[2018-02-25] MEDS: amLODIPine 10 MG Tablet PO SCH (09:35)
--- NOTE | 2018-02-25 16:22 | P.PNIM ---
Subjective Interval history: 62-year-old gentleman admitted status post fall sustaining right subdural hematoma, found to have sepsis, due to enterococcal UTI, and bacteremia, as well as respiratory failure that has resolved and urethral perforation with Cespedes placed trauma, and hematuria, now with required indwelling Cespedes placed per urology Physical Exam Vital signs: Last Vital Signs Temp 100.7 F H 02/25/18 16:00 Pulse 111 H 02/25/18 16:00 Resp 20 02/25/18 16:00 BP 145/83 H 02/25/18 16:00 Pulse Ox 96 02/25/18 16:00 Intake & Output 02/23/18 02/24/18 02/25/18 02/26/18 06:59 06:59 06:59 06:59 Intake Total 400 / 400 921 / 921 1350 / 1350 100 / 100 Output Total 500 / 500 603 / 603 1300 / 1300 Balance -100 / -100 318 / 318 50 / 50 100 / 100 Weight 61.7 kg 60 kg 59.1 kg chronically ill 62yo m laceration right forehead without erythema, sutures in place, Awake alert pleasant, remains confused, no distress, Heart S1-S2 regular Lungs clear no wheeze no rhonchi fair air movement Abdomen soft nondistended positive bowel sounds Extremities no clubbing cyanosis no edema Urinary Catheter Management 3-way Urethral: Cath placed during this visit: yes Urethral indwelling: Yes Reason for continuing: Gross Hematuria Insertion date: 02/09/18 Insertion time: 16:00 Coude: Cath placed during this visit: no Results Labs CBC & Chem 7: 02/20/18 05:28 02/20/18 05:28 Assessment and Plan (1) Major neurocognitive disorder due to another medical condition: Code(s): F02.80 - Dementia in other diseases classified elsewhere without behavioral disturbance Status: Acute Plan SEVERE SEPSIS due to enterococcal UTI resolved. ENTEROCOCCUS BACTEREMIA due to complicated UTI poa-continue ampicillin IV times 2 weeks past negative blood cultures from 02/12/18, ampicillin started 02/13/18 , last day would be Feb 27, to complete course of therapy recommended. ACUTE SDH due to trauma/fall prior to admission - nonsurgical, stable, continue to hold any anticoagulation, keppra sz prophylaxis LACERATION to forehead continue wound care, per ER documentation sutures placed prior to admission present on 02/09/2018, okay to remove them, continue local wound care DEMENTIA with behavioral disturbance continue as per neuropsychiatry, continue out of restraints HTN controlled continue norvasc, ACUTE HYPOXIC RESP FAILURE resolved, stable on room air ACUTE HEMATURIA DUE TO URETHRAL PERFORATION/Cespedes traumacontinue Cespedes outpatient follow-up with urology BPH w urinary retention, flomax, fu w urology dvt prophylaxis - scd DISPO - return to snf, to complete IV antibiotics., When arranged. addendum pt has temp now of 100.7, prob atelectasis, cont is, oob to chair, tylenol, will monitor, if fever persists will need repeat cx,cxr, cont abx after stop date, hold dc for today. Progress Note: Quality VTE Deep Vein Thrombosis/Pulmonary Embolism Present on Admission: No
[2018-02-25] MEDS ORDERED: Acetaminophen 325 MG Tablet PO ONE (16:23)
[2018-02-25 20:45] LABS: Albumin 2.5 g/dL (3.4-5.0); Anion Gap 9 meq/L (5-15); Aspartate Aminotransferase 24 U/L (15-37); Blood Urea Nitrogen 8 mg/dL (7-18); Calcium 8.6 mg/dL (8.5-10.1); Carbon Dioxide 24.5 meq/L (21.0-32.0); Chloride 107 meq/L (98-107); Glomerular Filtration Rate Greater Than 89 mL/min (>89); Glucose,Random 91 mg/dL (74-106); Potassium 3.6 meq/L (3.5-5.1); Sodium 140 meq/L (136-145)
[2018-02-25 20:46] LABS: Alanine Aminotransferase 13 U/L (12-78)
[2018-02-25 20:49] LABS: Alkaline Phosphatase 76 U/L (45-117); Total Protein 7.1 g/dL (6.4-8.2)
[2018-02-26] MEDS: Oral Hygiene Kit OROPHARYNG SCH ×4 (07:36→15:05)
[2018-02-26 07:45] LABS: Baso # (Auto) 0.1 th/mm3 (0.0-0.2); Baso % (Auto) 1.2 % (0.0-2.0); Eos % (Auto) 0.6 % (0.0-4.0); Hemoglobin 11.6 gm/dL (13.0-17.0); Lymph # (Auto) 1.2 th/mm3 (1.0-4.8); Lymph % (Auto) 17.1 % (9.0-44.0); Mean Corpuscular HGB Conc 34.1 % (32.0-36.0); Mean Corpuscular Hemoglobin 30.8 pg (27.0-34.0); Mean Corpuscular Volume 90.2 fL (80.0-100.0); Mean Platelet Volume 9.3 fL (7.0-11.0); Mono # (Auto) 0.6 th/mm3 (0.0-0.9); Mono % (Auto) 8.3 % (0.0-8.0); Neut # (Auto) 4.9 th/mm3 (1.8-7.7); Neut % (Auto) 72.8 % (16.0-70.0); Platelet Count 295 th/mm3 (150-450); Red Blood Count 3.77 mil/mm3 (4.50-5.90); Red Cell Distribution Width 14.6 % (11.6-17.2); White Blood Count 6.8 th/mm3 (4.0-11.0)
[2018-02-26 08:11] LABS: Albumin 2.4 g/dL (3.4-5.0); Anion Gap 9 meq/L (5-15); Aspartate Aminotransferase 25 U/L (15-37); Blood Urea Nitrogen 8 mg/dL (7-18); Calcium 8.6 mg/dL (8.5-10.1); Carbon Dioxide 23.1 meq/L (21.0-32.0); Chloride 108 meq/L (98-107); Glomerular Filtration Rate Greater Than 89 mL/min (>89); Glucose,Random 87 mg/dL (74-106); Potassium 3.5 meq/L (3.5-5.1); Sodium 140 meq/L (136-145)
[2018-02-26 08:12] LABS: Alanine Aminotransferase 13 U/L (12-78)
[2018-02-26 08:14] LABS: Alkaline Phosphatase 76 U/L (45-117); Total Protein 7.3 g/dL (6.4-8.2)
[2018-02-26] MEDS: levETIRAcetam 500 MG Tablet PO SCH ×2 (09:42→20:36)
[2018-02-26] MEDS: amLODIPine 10 MG Tablet PO SCH (09:42)
[2018-02-26] MEDS: QUEtiapine 25 MG Tablet PO SCH ×2 (09:42→20:37)
[2018-02-26] MEDS: Senna/Docusate Sodium 8.6/50 MG Tablet PO SCH ×2 (09:42→20:37)
[2018-02-26] MEDS: Famotidine 20 MG Tablet PO SCH ×2 (09:42→20:37)
[2018-02-26] MEDS: Modafinil 200 MG Tablet PO SCH (09:42)
--- NOTE | 2018-02-26 09:44 | P.PNFP ---
Subjective Interval history: Seen this am, he is alert non conversive. He has been febrile no apparent distress Results - Labs Result diagrams: 02/26/18 07:16 02/26/18 07:16 Abnormal lab results 02/25/18 02/26/18 02/26/18 Range/Units 19:22 07:16 07:16 RBC 3.77 L (4.50-5.90) mil/mm3 Hgb 11.6 L (13.0-17.0) gm/dL Hct 34.0 L (39.0-51.0) % Neut % (Auto) 72.8 H (16.0-70.0) % [place] % (Auto) 8.3 H (0.0-8.0) % Chloride 108 H (98-107) meq/L Creatinine 0.59 L (0.60-1.30) mg/dL Albumin 2.5 L 2.4 L (3.4-5.0) g/dL Short CBC 02/26/18 Range/Units 07:16 WBC 6.8 (4.0-11.0) th/mm3 Hgb 11.6 L (13.0-17.0) gm/dL Hct 34.0 L (39.0-51.0) % Plt Count 295 D (150-450) th/mm3 BMP 02/25/18 02/26/18 19:22 07:16 Sodium 140 140 Potassium 3.6 3.5 Chloride 107 108 H Carbon Dioxide 24.5 23.1 BUN 8 8 Creatinine 0.59 L 0.62 Calcium 8.6 8.6 Liver Function 02/25/18 02/26/18 Range/Units 19:22 07:16 Total Bilirubin 0.4 0.4 (0.2-1.0) mg/dL AST 24 25 (15-37) U/L ALT 13 13 (12-78) U/L Alkaline Phosphatase 76 76 (45-117) U/L Albumin 2.5 L 2.4 L (3.4-5.0) g/dL Physical Exam Vital signs: Vital Signs 02/25/18 11:59 02/25/18 16:00 02/25/18 20:00 Temperature 100.7 F H 100.1 F H Pulse Rate 100 H 111 H 92 H Respiratory Rate 20 18 Blood Pressure 145/83 H 87/60 L Pulse Oximetry 96 98 02/25/18 21:00 02/25/18 22:12 02/25/18 23:00 Temperature Pulse Rate 99 H 77 Respiratory Rate 22 Blood Pressure 90/56 L 100/63 Pulse Oximetry 02/26/18 00:00 02/26/18 04:00 02/26/18 08:05 Temperature 99.0 F 99.5 F 97.9 F Pulse Rate 78 81 80 Respiratory Rate 18 18 20 Blood Pressure 108/67 121/71 113/69 Pulse Oximetry 97 98 96 Intake & Output 02/25/18 02/26/18 02/26/18 18:59 06:59 18:59 Intake Total 1000 / 1000 220 / 220 100 / 100 Output Total 350 / 350 700 / 700 Balance 650 / 650 -480 / -480 100 / 100 Weight 59.1 kg Intake: IV 200 / 200 100 / 100 100 / 100 Ampicillin Inj 2,000 MG In NS 200 / 200 100 / 100 100 / 100 Inj 100 ML @ 400 mls/hr IV.SIG Q4H [facility] Rx#:[id number] Oral 500 / 500 120 / 120 Other 300 / 300 Output: Urine 700 / 700 Urine Amount (Catheter) 350 / 350 Coude 350 / 350 Other: Other Intake Source Saline Solution Date of Last Bowel Movement 02/23/18 02/23/18 - Constitutional no acute distress - Routine Respiratory Exam Present: diminished air movement - Routine Cardiovascular Exam Present: S1, S2 - Routine Abdominal Exam Present: soft, normoactive bowel sounds - Routine Skin Exam Present: dry, warm - Routine Neurological Exam Present: alert - Urinary Catheter Management 3-way Urethral Cath placed during this visit: yes Urethral indwelling: Yes Reason for continuing: Gross Hematuria Insertion date: 02/09/18 Insertion time: 16:00 Coude Cath placed during this visit: no Reason for continuing: Chronic Urinary Retention Assessment and Plan - Assessment (1) Acute subdural hematoma Code(s): S06.5X9A - Traumatic subdural hemorrhage with loss of consciousness of unspecified duration, initial encounter Status: Acute Plan: Cont current management (2) Severe sepsis Code(s): A41.9 - Sepsis, unspecified organism; R65.20 - Severe sepsis without septic shock Status: Acute Plan: Gram positive bacteremia (Enterococcus) Blood cultures from 02/09 growing GPC from 02/09 (4 of 4), repeat cultures from 02/12 no growth final ID following, per noted cont ampicillin x 2 weeks if BC negative (3) Encephalopathy acute Code(s): G93.40 - Encephalopathy, unspecified Status: Acute Plan: F/U mental status and neuro recommendations (4) Major neurocognitive disorder due to another medical condition Code(s): F02.80 - Dementia in other diseases classified elsewhere without behavioral disturbance Status: Acute Plan: Cont current treatment for SDH and SIRS. - Assessment and Plan Will monitor daily and assess response to current treatment. 02/16/18 Seen in bed, he is in wrist restraints he is oriented to self. he is reported to be impulsive, Cespedes in place, urine clear yellow. VSS afebrile. HGB is stable, BS well controlled. He is on Keppra for seizure precautions, no reported activity,Will check level. Will need placement at DC. 02/19/18-Resting in bed, he is alert but confused. With some reported agitation. He is still in restraints. VSS BS controlled. Dc planning to return to Snf when cleared by ID. 02/20/18- Found in bed, he is alert and oriented to self. Vss. He is on Ampicillin q4. Per ID noted if BC negative he can cont antibiotics x 2 weeks, which put stop date at 02/27/17. He can be Dc once arrangements made. 3008 on chart. 02/21/18 - He is much more alert than when I last saw him a week ago and is conversive. He is without complaints except he says he is "tired". Plan to cont antibiotics as ordered then for D/C to SNF when cleared. 02/22/18 - Per CM last week he has been accepted back at the SNF pending finishing IV antibiotics and clearance from ID. He is afebrile with stable VS. 02/26/17- Seen this am he is alert, non conversive. Has been febrile. Breath sounds are diminished, will get cxr, U/A. Labs today show normal white count. Cont to monitor.
--- NOTE | 2018-02-26 11:50 | XR ---
EXAM DATE: 02/26/2018 11:47 AM EST AGE/SEX: 62 years / Male INDICATIONS: Fever. CLINICAL DATA: This is the patient's initial encounter. Patient reports that signs and symptoms have been present for 4 - 6 days and indicates a pain score of Nonresponsive. MEDICAL/SURGICAL HISTORY: Non-responsive. Non-responsive. COMPARISON: [facility] – [place], CHEST 1V SINGLE AP, 02/09/2018. . FINDINGS: Portable AP view of the chest demonstrates a normal size cardiac silhouette. Lungs are underinflated. There is hazy opacity at the left lung base. No pneumothorax is identified. There is mild subsegment al atelectasis at the right base. Bones demonstrate no acute finding. CONCLUSION: New mild opacity at the left lung base representing either atelectasis or airspace consolidation. Given the clinical history of fever, this could represent an infectious process/pneumonia. Electronically signed by: Justo Avelar MD Board Certified Radiologist 02/26/2018 11:49 AM EST
[2018-02-26 12:21] LABS: Bilirubin,Urine Negative (Negative); Clarity,Urine Hazy (Clear); Color,Urine Amber (Yellw/Straw); Glucose,Urine (UA) Negative (Negative); Leukocyte Esterase,Urine Negative (Negative); Mucus,Urine Many /lpf (Occasional); Nitrite,Urine Negative (Negative); Specific Gravity,Urine 1.026 (1.002-1.035)
[2018-02-27] MEDS: Oral Hygiene Kit OROPHARYNG SCH ×5 (00:13→23:54)
[2018-02-27] MEDS: Modafinil 200 MG Tablet PO SCH (08:56)
[2018-02-27] MEDS: Famotidine 20 MG Tablet PO SCH ×2 (08:56→22:36)
[2018-02-27] MEDS: levETIRAcetam 500 MG Tablet PO SCH ×2 (08:56→22:35)
[2018-02-27] MEDS: QUEtiapine 25 MG Tablet PO SCH ×2 (08:56→22:36)
[2018-02-27] MEDS: Senna/Docusate Sodium 8.6/50 MG Tablet PO SCH ×2 (08:56→22:36)
[2018-02-27] MEDS: amLODIPine 10 MG Tablet PO SCH (08:57)
--- NOTE | 2018-02-27 12:16 | P.PNFP ---
Subjective Interval history: Found in bed, he is alert non conversive He appears comfortable. tray in front, not eating Results - Labs Result diagrams: 02/26/18 07:16 02/26/18 07:16 Abnormal lab results 02/26/18 Range/Units 12:00 Urine Clarity Hazy H (Clear) Urine Protein 30 H (Neg-Trace) mg/dL Urine Mucus Many H (Occasional) /lpf Urine 02/26/18 Range/Units 12:00 Urine Color Danielle (Yellw/Straw) Urine Clarity Hazy H (Clear) Urine pH 6.0 (5.0-8.5) Ur Specific Lindrith 1.026 (1.002-1.035) Urine Protein 30 H (Neg-Trace) mg/dL Urine Glucose (UA) Negative (Negative) mg/dL - Imaging Impressions Chest X-Ray 02/26/18 00:00 CONCLUSION: New mild opacity at the left lung base representing either atelectasis or airspace consolidation. Given the clinical history of fever, this could represent an infectious process/ pneumonia. Physical Exam Vital signs: Vital Signs 02/26/18 16:00 02/26/18 20:00 02/26/18 21:39 Temperature 100 F H 100.6 F H Pulse Rate 96 H 95 H Respiratory Rate 20 Blood Pressure 120/70 Pulse Oximetry 97 02/26/18 22:15 02/27/18 00:00 02/27/18 07:57 Temperature 102.6 F H 97.4 F L 97.7 F Pulse Rate 97 H 76 83 Respiratory Rate 18 18 18 Blood Pressure 126/74 105/65 117/75 Pulse Oximetry 95 98 97 02/27/18 09:49 02/27/18 11:58 Temperature Pulse Rate 82 Respiratory Rate 18 Blood Pressure Pulse Oximetry Intake & Output 02/26/18 02/27/18 02/27/18 18:59 06:59 18:59 Intake Total 100 / 100 40 / 40 Balance 100 / 100 40 / 40 Weight 59.1 kg Intake: IV 100 / 100 Ampicillin Inj 2,000 MG In NS 100 / 100 Inj 100 ML @ 400 mls/hr IV.SIG Q4H [facility] Rx#:[id number] Oral 40 / 40 Other: Date of Last Bowel Movement 02/23/18 - Constitutional no acute distress - Routine HEENT Exam ENT: Present: mucous membranes moist - Routine Respiratory Exam Present: diminished air movement - Routine Cardiovascular Exam Present: S1 - Routine Abdominal Exam Present: soft, normoactive bowel sounds - Routine Extremities Exam Present: edema - Routine Skin Exam Present: dry, warm - Routine Neurological Exam Present: alert - Urinary Catheter Management 3-way Urethral Cath placed during this visit: yes Urethral indwelling: Yes Reason for continuing: Gross Hematuria Insertion date: 02/09/18 Insertion time: 16:00 Coude Cath placed during this visit: no Reason for continuing: Chronic Urinary Retention Assessment and Plan - Assessment (1) Acute subdural hematoma Code(s): S06.5X9A - Traumatic subdural hemorrhage with loss of consciousness of unspecified duration, initial encounter Status: Acute Plan: Cont current management (2) Severe sepsis Code(s): A41.9 - Sepsis, unspecified organism; R65.20 - Severe sepsis without septic shock Status: Acute Plan: Gram positive bacteremia (Enterococcus) Blood cultures from 02/09 growing GPC from 02/09 (4 of 4), repeat cultures from 02/12 no growth final completed ampicillin x 2 weeks Now with fever, New BC pending, ID reconsulted (3) Encephalopathy acute Code(s): G93.40 - Encephalopathy, unspecified Status: Acute Plan: F/U mental status and neuro recommendations (4) Major neurocognitive disorder due to another medical condition Code(s): F02.80 - Dementia in other diseases classified elsewhere without behavioral disturbance Status: Acute Plan: Cont current treatment for SDH and SIRS. - Assessment and Plan Will monitor daily and assess response to current treatment. 02/16/18 Seen in bed, he is in wrist restraints he is oriented to self. he is reported to be impulsive, Cespedes in place, urine clear yellow. VSS afebrile. HGB is stable, BS well controlled. He is on Keppra for seizure precautions, no reported activity,Will check level. Will need placement at DC. 02/19/18-Resting in bed, he is alert but confused. With some reported agitation. He is still in restraints. VSS BS controlled. Dc planning to return to Snf when cleared by ID. 02/20/18- Found in bed, he is alert and oriented to self. Vss. He is on Ampicillin q4. Per ID noted if BC negative he can cont antibiotics x 2 weeks, which put stop date at 02/27/17. He can be Dc once arrangements made. [id number] on chart. 02/21/18 - He is much more alert than when I last saw him a week ago and is conversive. He is without complaints except he says he is "tired". Plan to cont antibiotics as ordered then for D/C to SNF when cleared. 02/22/18 - Per CM last week he has been accepted back at the SNF pending finishing IV antibiotics and clearance from ID. He is afebrile with stable VS. 02/26/17- Seen this am he is alert, non conversive. Has been febrile. Breath sounds are diminished, will get cxr, U/A. Labs today show normal white count. Cont to monitor. 02/27/17- Seen this am he is alert, non conversive. He has been febrile. Urine negative, CRX yesterday shows mild new left opacity. Id reconsulted. Cont with bronchodilators, sats are maintain don room air. Nurses voice he is quite lethargic throughout day. he is on Seroquel, Provigil and Keppra. Will decrease Seroquel. Hepas to assume care on 02/28/18 0700
--- NOTE | 2018-02-27 18:55 | P.PNID ---
Subjective Remarks: reconsulted 2/2 pneumonia fever up to 102.6 yday Pt is quite lethargic and not unswering my questions W/u includes 1 set of BC which is P, negative UA and Chest X-Ray with new mild opacity at the left lung base representing either atelectasis or airspace consolidation. No new abx were started Antibiotics: none Allergies/Adverse Reactions: Allergies codeine Allergy (Severe, Unverified 12/12/17 13:15) PASSES OUT Objective Vital Signs 02/26/18 20:00 02/26/18 21:39 02/26/18 22:15 Temperature 100.6 F H 102.6 F H Pulse Rate 95 H 97 H Respiratory Rate 18 Blood Pressure 126/74 Pulse Oximetry 95 02/27/18 00:00 02/27/18 07:57 02/27/18 09:49 Temperature 97.4 F L 97.7 F Pulse Rate 76 83 82 Respiratory Rate 18 18 Blood Pressure 105/65 117/75 Pulse Oximetry 98 97 02/27/18 11:21 02/27/18 11:58 02/27/18 15:53 Temperature 98.0 F Pulse Rate 81 Respiratory Rate 18 18 16 Blood Pressure 110/72 Pulse Oximetry 97 02/27/18 16:13 Temperature 97.6 F Pulse Rate 94 H Respiratory Rate 20 Blood Pressure 111/72 Pulse Oximetry 98 Intake & Output 02/26/18 02/27/18 02/27/18 18:59 06:59 18:59 Intake Total 100 / 100 40 / 40 Output Total 425 / 425 Balance 100 / 100 40 / 40 -425 / -425 Weight 59.1 kg Intake: IV 100 / 100 Ampicillin Inj 2,000 MG In NS 100 / 100 Inj 100 ML @ 400 mls/hr IV.SIG Q4H [facility] Rx#:[id number] Oral 40 / 40 Output: Urine 425 / 425 Other: Date of Last Bowel Movement 02/23/18 02/27/18 10:40 Blood - Peripheral Aerobic Blood Culture - Pending 02/27/18 10:40 Blood - Peripheral Anaerobic Blood Culture - Pending Lab - Hematology Results 02/26/18 07:16 WBC 6.8 RBC 3.77 L Hgb 11.6 L Hct 34.0 L MCV 90.2 MCH 30.8 MCHC 34.1 RDW 14.6 Plt Count 295 D MPV 9.3 Neut % (Auto) 72.8 H Lymph % (Auto) 17.1 Pickett % (Auto) 8.3 H Eos % (Auto) 0.6 Baso % (Auto) 1.2 Neut # (Auto) 4.9 Lymph # (Auto) 1.2 Pickett # (Auto) 0.6 Eos # (Auto) 0.0 Baso # (Auto) 0.1 WBC Differential . Differential Comment Auto diff final Lab - Chemistry Results 02/25/18 02/26/18 19:22 07:16 Sodium 140 140 Potassium 3.6 3.5 Chloride 107 108 H Carbon Dioxide 24.5 23.1 Anion Gap 9 9 BUN 8 8 Creatinine 0.59 L 0.62 Estimated GFR Greater than 89 Greater than 89 Random Glucose 91 87 Calcium 8.6 8.6 Total Bilirubin 0.4 0.4 AST 24 25 ALT 13 13 Alkaline Phosphatase 76 76 Total Protein 7.1 7.3 Albumin 2.5 L 2.4 L Imaging: ITS Impressions Cervical Spine CT 02/09/18 20:32 CONCLUSION: 1. Negative trauma CT. Abdomen/Bladder Ultrasound 02/10/18 00:00 CONCLUSION: 1. Mild right hydronephrosis. 2. Distended urinary bladder with avascular debris along the dependent aspect. Given the clinical history this could represent blood clot. Consider follow-up to confirm resolution. There is no blood flow in this structure to suggest that it represents a mass. 3. Montemayor catheter is likely misplaced potentially in the posterior/prostatic urethra. It is not visualized within the bladder and urinary bladder is distended. Head CT 02/10/18 06:00 CONCLUSION: 1. Stable right temporal parietal subdural hematoma. 2. No new findings. . Abdomen/Pelvis CT 02/10/18 18:49 CONCLUSION: 1. Extension of Montemayor catheter outside of the urethral lumen into the left sided perineal soft tissues. Findings indicate traumatic perforation of the urethra. There is gas in the surrounding perineal soft tissues. The Montemayor catheter balloon is inflated in this region outside of the urethral lumen. 2. Distended urinary bladder. 3. Mild prominence of the proximal renal collecting systems without shanelle hydronephrosis. 4. Enlarged prostate. 5. Findings were discussed with the patient's nurse. Chest X-Ray 02/26/18 00:00 CONCLUSION: New mild opacity at the left lung base representing either atelectasis or airspace consolidation. Given the clinical history of fever, this could represent an infectious process/ pneumonia. Physical Exam: GENERAL: NAD sedated SKIN: Warm and dry. HEAD: Atraumatic. Normocephalic. EYES: Pupils equal and round. No scleral icterus. No injection or drainage. ENT: No nasal bleeding or discharge. Mucous membranes pink and moist. NECK: Trachea midline. No JVD. CARDIOVASCULAR: Regular rate and rhythm. RESPIRATORY: No accessory muscle use. Clear to auscultation. Breath sounds equal bilaterally. Poor effort GASTROINTESTINAL: Abdomen soft, non-tender, mildly distended. : montemayor in place with clear light yellow urine MUSCULOSKELETAL: Extremities without clubbing, cyanosis, or edema. NEUROLOGICAL: lethargic, confused PSYCHIATRIC: unable to assess Assessment and Plan - Plan sp fall resulted in subdural hematoma BPH, urinary retention, montemayor trauma High grade enterococcaul bactremia, sepsis likley 2/2 UTI in the settings of urinary retention with BPH othre source ounfd be endocartditis however pt has no clinical findings sugg of endocarditis and has alternative diagnosis sepsis clin resol;dianne HIgh lactic acidosis, improved Pt is stable and improving sp Urethral trauma with montemayor in false passage: montemayor placement corrected by urologuist New febrile episode. Initial w/u sgg of new LLL PNA empiric abx : Vanco, cefepim,e sptum clx if feasible fu blood clx procalcitonine, serial lactic acid FU CXR
[2018-02-27] MEDS ORDERED: Vancomycin Consult Pharmacy OTHER PRN (18:56)
[2018-02-27] MEDS: Vancomycin Inj 1,000 MG in Sodium Chlor 0.9% Inj 250 ML IV.SIG SCH (22:32)
[2018-02-28] MEDS: Oral Hygiene Kit OROPHARYNG SCH ×3 (05:37→15:46)
--- NOTE | 2018-02-28 06:23 | XR ---
EXAM DATE: 02/28/2018 5:35 AM EST AGE/SEX: 62 years / Male INDICATIONS: Respiratory disease. CLINICAL DATA: This is the patient's subsequent encounter. Patient reports that signs and symptoms h ave been present for 1 week and indicates a pain score of Nonresponsive. MEDICAL/SURGICAL HISTORY: None. None. [place] [facility] [facility] [place]. . FINDINGS: 2 AP semierect portable views of the chest were obtained and again demonstrate hazy airspace disease in the left lung base. The right lung is clear. The heart size is within normal limits. The bony thor ax remains intact. Surgical kathia are present in the right upper abdomen consistent with prior chol ecystectomy. CONCLUSION: No significant change. Hazy opacity remains at the left lung base. Electronically signed by: Hammad Ramsey MD Board Certified Radiologist 02/28/2018 6:22 AM EST
[2018-02-28 07:21] LABS: Baso # (Auto) 0.1 th/mm3 (0.0-0.2); Baso % (Auto) 1.2 % (0.0-2.0); Eos # (Auto) 0.1 th/mm3 (0.0-0.4); Eos % (Auto) 1.1 % (0.0-4.0); Hematocrit 33.7 % (39.0-51.0); Hemoglobin 11.1 gm/dL (13.0-17.0); Lymph # (Auto) 1.1 th/mm3 (1.0-4.8); Lymph % (Auto) 19.7 % (9.0-44.0); Mean Corpuscular HGB Conc 32.9 % (32.0-36.0); Mean Corpuscular Hemoglobin 29.8 pg (27.0-34.0); Mean Corpuscular Volume 90.5 fL (80.0-100.0); Mean Platelet Volume 9.1 fL (7.0-11.0); Mono # (Auto) 0.6 th/mm3 (0.0-0.9); Mono % (Auto) 10.6 % (0.0-8.0); Neut # (Auto) 3.8 th/mm3 (1.8-7.7); Neut % (Auto) 67.4 % (16.0-70.0); Platelet Count 276 th/mm3 (150-450); Red Blood Count 3.72 mil/mm3 (4.50-5.90); Red Cell Distribution Width 14.2 % (11.6-17.2); White Blood Count 5.6 th/mm3 (4.0-11.0)
[2018-02-28] MEDS: Modafinil 200 MG Tablet PO SCH ×2 (08:12→08:21)
[2018-02-28] MEDS: QUEtiapine 25 MG Tablet PO SCH ×2 (08:12→21:28)
[2018-02-28] MEDS: amLODIPine 10 MG Tablet PO SCH (08:12)
[2018-02-28] MEDS: levETIRAcetam 500 MG Tablet PO SCH ×3 (08:12→21:27)
[2018-02-28] MEDS: Famotidine 20 MG Tablet PO SCH ×3 (08:12→21:27)
[2018-02-28] MEDS: Senna/Docusate Sodium 8.6/50 MG Tablet PO SCH ×3 (08:13→21:28)
[2018-02-28] MEDS: Vancomycin Inj 1,000 MG in Sodium Chlor 0.9% Inj 250 ML IV.SIG SCH ×2 (08:13→21:28)
--- NOTE | 2018-02-28 18:45 | P.PNIM ---
Subjective Interval history: 62-year-old gentleman admitted status post fall with right subdural hematoma and found to have sepsis, acute respiratory failure and urethral perforation s/p montemayor placement per urology, treated with entercoccal uti and bacteremia, who was to be discharged but had new fever and pulm infiltrate on fu cxr. pt seen and examined, doing ok, denies pain, denies sob, or nv, still confused, Physical Exam Vital signs: Last Vital Signs Temp 97.7 F 02/28/18 16:36 Pulse 91 H 02/28/18 16:36 Resp 18 02/28/18 16:36 BP 109/72 02/28/18 16:36 Pulse Ox 99 02/28/18 16:36 Intake & Output 02/26/18 02/27/18 02/28/18 03/01/18 06:59 06:59 06:59 06:59 Intake Total 1220 / 1220 140 / 140 570 / 570 350 / 350 Output Total 1050 / 1050 675 / 675 Balance 170 / 170 140 / 140 -105 / -105 350 / 350 Weight 59.1 kg 59.1 kg 59 kg wdwn 62 yo w m awake pleasant alert no distress confused heart s1s2 reg lungs clear no wheeze decreased bs bases abd soft nondt pos bs ext no edema no calf tenderness Urinary Catheter Management 3-way Urethral: Cath placed during this visit: yes Urethral indwelling: Yes Reason for continuing: Gross Hematuria Insertion date: 02/09/18 Insertion time: 16:00 Coude: Cath placed during this visit: no Results Labs CBC & Chem 7: 02/28/18 06:33 02/26/18 07:16 Labs: Microbiology 02/27/18 10:40 Blood - Peripheral Aerobic Blood Culture - Preliminary No growth in 1 day 02/27/18 10:40 Blood - Peripheral Anaerobic Blood Culture - Preliminary No growth in 1 day Imaging Imaging: Impressions Chest X-Ray 02/28/18 06:00 CONCLUSION: No significant change. Hazy opacity remains at the left lung base. Assessment and Plan (1) Major neurocognitive disorder due to another medical condition: Code(s): F02.80 - Dementia in other diseases classified elsewhere without behavioral disturbance Status: Acute Plan new LLL PNA hcap - cefepime/vanco - pulm tx, ezpap, sputum and blood clutures and strict aspiration precautions. SEVERE SEPSIS due to enterococcal UTI resolved. ENTEROCOCCUS BACTEREMIA due to complicated UTI poa-continue ampicillin IV times 2 weeks past negative blood cultures from 02/12/18, ampicillin started 02/13/18 , last day would be Feb 27, to complete course of therapy recommended. ACUTE SDH due to trauma/fall prior to admission - nonsurgical, stable, continue to hold any anticoagulation, keppra sz prophylaxis LACERATION to forehead due to fall/trauma sutures out, resolved. DEMENTIA with behavioral disturbance continue as per neuropsychiatry, continue out of restraints HTN controlled continue norvasc, ACUTE HYPOXIC RESP FAILURE resolved, remains stable on room air ACUTE HEMATURIA DUE TO URETHRAL PERFORATION/Montemayor traumainstructed to continue Montemayor til outpatient follow-up with urology BPH w urinary retention, flomax, fu w urology dvt prophylaxis - scd DISPO - return to snf when active issues stable Progress Note: Quality VTE Deep Vein Thrombosis/Pulmonary Embolism Present on Admission: No
[2018-03-01] MEDS: Oral Hygiene Kit OROPHARYNG SCH ×4 (01:19→15:00)
[2018-03-01 08:05] LABS: Glomerular Filtration Rate Greater Than 89 mL/min (>89)
[2018-03-01] MEDS: Modafinil 200 MG Tablet PO SCH (08:40)
[2018-03-01] MEDS: Senna/Docusate Sodium 8.6/50 MG Tablet PO SCH ×2 (08:40→23:06)
[2018-03-01] MEDS: Famotidine 20 MG Tablet PO SCH ×2 (08:40→23:06)
[2018-03-01] MEDS: levETIRAcetam 500 MG Tablet PO SCH ×2 (08:41→23:06)
[2018-03-01] MEDS: amLODIPine 10 MG Tablet PO SCH (08:41)
[2018-03-01] MEDS: Vancomycin Inj 1,000 MG in Sodium Chlor 0.9% Inj 250 ML IV.SIG SCH (08:41)
[2018-03-01] MEDS: QUEtiapine 25 MG Tablet PO SCH ×2 (08:41→23:07)
[2018-03-01] MEDS ORDERED: Pharmacy Ordered Lab Info OTHER ONE (08:45)
[2018-03-01 09:38] LABS: Vancomycin,Trough 9.6 mcg/mL (5.0-10.0)
--- NOTE | 2018-03-01 11:59 | P.PNIM ---
Subjective Interval history: 62-year-old gentleman admitted status post fall with right subdural hematoma and found to have sepsis, acute respiratory failure and urethral perforation pt seen and examined, no new events overnight, no fever, resting comfortably, per nursing yesterday, restless Physical Exam Vital signs: Last Vital Signs Temp 97.7 F 03/01/18 08:37 Pulse 79 03/01/18 08:37 Resp 18 03/01/18 08:37 BP 131/73 03/01/18 08:37 Pulse Ox 95 03/01/18 08:37 Intake & Output 02/27/18 02/28/18 03/01/18 03/02/18 06:59 06:59 06:59 06:59 Intake Total 140 / 140 570 / 570 1000 / 1000 250 / 250 Output Total 675 / 675 500 / 500 Balance 140 / 140 -105 / -105 500 / 500 250 / 250 Weight 59.1 kg 59 kg 59.7 kg chronically ill appearing 62 yo w m sleepy, not awaking to converse, no distress heart s1s2 reg ectopy lungs decreased bs no wheeze nonlabored abd soft nondt pos bs ext no edema, no calf tenderness Urinary Catheter Management 3-way Urethral: Cath placed during this visit: yes Urethral indwelling: Yes Reason for continuing: Gross Hematuria Insertion date: 02/09/18 Insertion time: 16:00 Coude: Cath placed during this visit: no Results Labs CBC & Chem 7: 02/28/18 06:33 03/01/18 08:45 Labs: Microbiology 02/27/18 10:40 Blood - Peripheral Aerobic Blood Culture - Preliminary No growth in 2 days 02/27/18 10:40 Blood - Peripheral Anaerobic Blood Culture - Preliminary No growth in 2 days Assessment and Plan (1) Major neurocognitive disorder due to another medical condition: Code(s): F02.80 - Dementia in other diseases classified elsewhere without behavioral disturbance Status: Acute Plan new LLL PNA hcap - cefepime/vanco - pulm tx, ezpap, sputum and blood clutures and strict aspiration precautions, change to po abx wh ok w ID. SEVERE SEPSIS due to enterococcal UTI resolved. ENTEROCOCCUS BACTEREMIA due to complicated UTI poa-continue ampicillin IV times 2 weeks past negative blood cultures from 02/12/18, ampicillin started 02/13/18 , last day Feb 27, ACUTE SDH due to trauma/fall prior to admission - nonsurgical, stable, continue to hold any anticoagulation, keppra sz prophylaxis LACERATION to forehead due to fall/trauma sutures out, resolved. DEMENTIA with behavioral disturbance continue as per neuropsychiatry, continue out of restraints HTN controlled continue norvasc, ACUTE HYPOXIC RESP FAILURE resolved, remains stable on room air ACUTE HEMATURIA DUE TO URETHRAL PERFORATION/Cespedes traumainstructed to continue Cespedes til outpatient follow-up with urology BPH w urinary retention, flomax, fu w urology dvt prophylaxis - scd DISPO - return to snf when active issues stable Progress Note: Quality VTE Deep Vein Thrombosis/Pulmonary Embolism Present on Admission: No
--- NOTE | 2018-03-01 13:11 | P.PNID ---
Subjective Remarks: ID Coverage Chart reviewed Has been in hospital - trauma Rxd for Enterococcal bactreremia, UTI ID seen again 02/27 for fever ?Ne PNA Temps better UA ok has montemayor Started on vanco and Cefepime Antibiotics: Vanco Cefepime Allergies/Adverse Reactions: Allergies codeine Allergy (Severe, Unverified 12/12/17 13:15) PASSES OUT Objective Vital Signs 02/28/18 16:36 02/28/18 20:00 03/01/18 00:00 Temperature 97.7 F 98.4 F 98.1 F Pulse Rate 91 H 80 79 Respiratory Rate 18 15 17 Blood Pressure 109/72 111/76 115/71 Pulse Oximetry 99 98 97 03/01/18 04:00 03/01/18 06:27 03/01/18 08:00 Temperature 97.9 F Pulse Rate 77 118 H 76 Respiratory Rate 16 Blood Pressure 122/78 Pulse Oximetry 99 03/01/18 08:37 03/01/18 12:00 Temperature 97.7 F Pulse Rate 79 75 Respiratory Rate 18 Blood Pressure 131/73 Pulse Oximetry 95 Intake & Output 02/28/18 03/01/18 03/01/18 18:59 06:59 18:59 Intake Total 350 / 350 650 / 650 250 / 250 Output Total 500 / 500 Balance 350 / 350 150 / 150 250 / 250 Weight 59.7 kg Intake: IV 350 / 350 450 / 450 250 / 250 Maxipime Inj 2,000 MG In NS Inj 100 / 100 200 / 200 100 ML @ 200 mls/hr IV.SIG Q8H [facility] Rx#:[id number] Vancomycin Inj 1,000 MG In NS 250 / 250 250 / 250 250 / 250 Inj 250 ML @ 250 mls/hr IV.SIG Q12H [facility] Rx#:[id number] Oral 200 / 200 Output: Urine 500 / 500 02/27/18 10:40 Blood - Peripheral Aerobic Blood Culture - Preliminary No growth in 2 days 02/27/18 10:40 Blood - Peripheral Anaerobic Blood Culture - Preliminary No growth in 2 days Lab - Hematology Results 02/28/18 06:33 WBC 5.6 RBC 3.72 L Hgb 11.1 L Hct 33.7 L MCV 90.5 MCH 29.8 MCHC 32.9 RDW 14.2 Plt Count 276 MPV 9.1 Neut % (Auto) 67.4 Lymph % (Auto) 19.7 Russell % (Auto) 10.6 H Eos % (Auto) 1.1 Baso % (Auto) 1.2 Neut # (Auto) 3.8 Lymph # (Auto) 1.1 Russell # (Auto) 0.6 Eos # (Auto) 0.1 Baso # (Auto) 0.1 WBC Differential . Differential Comment Auto diff final Lab - Chemistry Results 02/27/18 02/27/18 03/01/18 19:46 19:46 06:43 BUN Creatinine 0.46 L Estimated GFR Greater than 89 Lactic Acid 1.5 Procalcitonin 0.10 H 03/01/18 08:45 BUN 15 Creatinine Estimated GFR Lactic Acid Procalcitonin Imaging: ITS Impressions Cervical Spine CT 02/09/18 20:32 CONCLUSION: 1. Negative trauma CT. Abdomen/Bladder Ultrasound 02/10/18 00:00 CONCLUSION: 1. Mild right hydronephrosis. 2. Distended urinary bladder with avascular debris along the dependent aspect. Given the clinical history this could represent blood clot. Consider follow-up to confirm resolution. There is no blood flow in this structure to suggest that it represents a mass. 3. Montemayor catheter is likely misplaced potentially in the posterior/prostatic urethra. It is not visualized within the bladder and urinary bladder is distended. Head CT 02/10/18 06:00 CONCLUSION: 1. Stable right temporal parietal subdural hematoma. 2. No new findings. . Abdomen/Pelvis CT 02/10/18 18:49 CONCLUSION: 1. Extension of Montemayor catheter outside of the urethral lumen into the left sided perineal soft tissues. Findings indicate traumatic perforation of the urethra. There is gas in the surrounding perineal soft tissues. The Montemayor catheter balloon is inflated in this region outside of the urethral lumen. 2. Distended urinary bladder. 3. Mild prominence of the proximal renal collecting systems without shanelle hydronephrosis. 4. Enlarged prostate. 5. Findings were discussed with the patient's nurse. Chest X-Ray 02/28/18 06:00 CONCLUSION: No significant change. Hazy opacity remains at the left lung base. Physical Exam: GENERAL: Awake, and responding, NAD SKIN: Warm and dry.and dry HEAD: Atraumatic. Normocephalic. EYES: Pupils equal and round. No scleral icterus. No injection or drainage. ENT: No nasal bleeding or discharge. Mucous membranes pink and moist. NECK: Trachea midline. No JVD. CARDIOVASCULAR: Regular rate and rhythm. RESPIRATORY: Clear to auscultation. Breath sounds equal bilaterally. Decreased at bases GASTROINTESTINAL: Abdomen soft, non-tender, mildly distended. : montemayor in place with clear light yellow urine MUSCULOSKELETAL: Extremities without clubbing, cyanosis, or edema. NEUROLOGICAL: awake, and answering my questions PSYCHIATRIC: unable to assess Assessment and Plan - Plan New Fever, ?new PNA S/P fall resulted in subdural hematoma BPH, urinary retention, montemayor trauma High grade enterococcal bacteremia, sepsis likley 2/2 UTI in the settings of urinary retention with BPH HIgh lactic acidosis, improved Pt is stable and improving S/P Urethral trauma with montemayor in false passage: montemayor placement corrected by urologuist New febrile episode. Initial w/u sgg of new LLL PNA Plan: Continue empiric abx : Vanco, cefepim,e sptum clx if feasible Follow C/S FU CXR Follow temps Monitor progress
[2018-03-01] MEDS: Vancomycin Inj 1,250 MG in Sodium Chlor 0.9% Inj 250 ML IV.SIG SCH (23:05)
[2018-03-02] MEDS: Oral Hygiene Kit OROPHARYNG SCH ×4 (00:05→15:04)
[2018-03-02 08:36] LABS: Blood Urea Nitrogen 13 mg/dL (7-18); Glomerular Filtration Rate Greater Than 89 mL/min (>89)
[2018-03-02] MEDS: Vancomycin Inj 1,250 MG in Sodium Chlor 0.9% Inj 250 ML IV.SIG SCH ×2 (09:07→23:06)
[2018-03-02] MEDS: levETIRAcetam 500 MG Tablet PO SCH ×2 (09:18→21:58)
[2018-03-02] MEDS: Modafinil 200 MG Tablet PO SCH (09:18)
[2018-03-02] MEDS: Famotidine 20 MG Tablet PO SCH ×2 (09:18→21:58)
[2018-03-02] MEDS: Senna/Docusate Sodium 8.6/50 MG Tablet PO SCH ×2 (09:19→21:58)
[2018-03-02] MEDS: QUEtiapine 25 MG Tablet PO SCH ×2 (09:19→21:58)
[2018-03-02] MEDS: amLODIPine 10 MG Tablet PO SCH (09:19)
--- NOTE | 2018-03-02 10:15 | P.PNID ---
Subjective Remarks: ID Coverage Chart reviewed Has been in hospital - trauma Rxd for Enterococcal bactreremia, UTI ID seen again 02/27 for fever Notes reviewed Temps ok UA ok has montemayor Started on vanco and Cefepime Antibiotics: Vanco Cefepime Allergies/Adverse Reactions: Allergies codeine Allergy (Severe, Unverified 12/12/17 13:15) PASSES OUT Objective Vital Signs 03/01/18 12:00 03/01/18 14:26 03/01/18 15:31 Temperature 97.9 F Pulse Rate 75 76 Respiratory Rate 16 16 Blood Pressure 140/66 Pulse Oximetry 97 03/01/18 16:06 03/01/18 20:00 03/02/18 00:00 Temperature 98.3 F 98.1 F Pulse Rate 70 78 78 Respiratory Rate 19 20 Blood Pressure 131/82 148/89 H Pulse Oximetry 98 99 03/02/18 04:00 03/02/18 06:19 03/02/18 07:20 Temperature 98.0 F 97.7 F Pulse Rate 77 66 68 Respiratory Rate 18 18 Blood Pressure 137/85 125/81 Pulse Oximetry 99 98 Intake & Output 03/01/18 03/02/18 03/02/18 18:59 06:59 18:59 Intake Total 350 / 350 522.5 / 522.5 Output Total 350 / 350 500 / 500 Balance 0 / 0 522.5 / 522.5 -500 / -500 Weight 59.7 kg Intake: IV 350 / 350 462.5 / 462.5 Maxipime Inj 2,000 MG In NS Inj 100 / 100 200 / 200 100 ML @ 200 mls/hr IV.SIG Q8H [facility] Rx#:[id number] Vancomycin Inj 1,000 MG In NS 250 / 250 Inj 250 ML @ 250 mls/hr IV.SIG Q12H [facility] Rx#:[id number] Vancomycin Inj 1,250 MG In NS 262.5 / 262.5 Inj 250 ML @ 250 mls/hr IV.SIG Q12H [facility] Rx#:[id number] Oral 60 / 60 Output: Urine 350 / 350 Urine Amount (Catheter) 500 / 500 Coude 500 / 500 02/27/18 10:40 Blood - Peripheral Aerobic Blood Culture - Preliminary No growth in 2 days 02/27/18 10:40 Blood - Peripheral Anaerobic Blood Culture - Preliminary No growth in 2 days Lab - Chemistry Results 03/01/18 03/01/18 03/02/18 06:43 08:45 07:44 BUN 15 13 Creatinine 0.46 L 0.40 L Estimated GFR Greater than 89 Greater than 89 Imaging: ITS Impressions Cervical Spine CT 02/09/18 20:32 CONCLUSION: 1. Negative trauma CT. Abdomen/Bladder Ultrasound 02/10/18 00:00 CONCLUSION: 1. Mild right hydronephrosis. 2. Distended urinary bladder with avascular debris along the dependent aspect. Given the clinical history this could represent blood clot. Consider follow-up to confirm resolution. There is no blood flow in this structure to suggest that it represents a mass. 3. Montemayor catheter is likely misplaced potentially in the posterior/prostatic urethra. It is not visualized within the bladder and urinary bladder is distended. Head CT 02/10/18 06:00 CONCLUSION: 1. Stable right temporal parietal subdural hematoma. 2. No new findings. . Abdomen/Pelvis CT 02/10/18 18:49 CONCLUSION: 1. Extension of Montemayor catheter outside of the urethral lumen into the left sided perineal soft tissues. Findings indicate traumatic perforation of the urethra. There is gas in the surrounding perineal soft tissues. The Montemayor catheter balloon is inflated in this region outside of the urethral lumen. 2. Distended urinary bladder. 3. Mild prominence of the proximal renal collecting systems without shanelle hydronephrosis. 4. Enlarged prostate. 5. Findings were discussed with the patient's nurse. Chest X-Ray 02/28/18 06:00 CONCLUSION: No significant change. Hazy opacity remains at the left lung base. Physical Exam: GENERAL: Awakens easily, responding, NAD SKIN: Warm and dry HEAD: Atraumatic. Normocephalic. EYES: Pupils equal and round. No scleral icterus. No injection or drainage. ENT: No nasal bleeding or discharge. Mucous membranes pink and moist. NECK: Trachea midline. No JVD. CARDIOVASCULAR: Regular rate and rhythm. RESPIRATORY: Clear to auscultation. Breath sounds equal bilaterally. Decreased at bases GASTROINTESTINAL: Abdomen soft, non-tender, mildly distended. : montemayor in place with clear light yellow urine MUSCULOSKELETAL: Extremities without clubbing, cyanosis, or edema. NEUROLOGICAL: awns easily, answering my questions PSYCHIATRIC: unable to assess Assessment and Plan - Plan New Fever, ?new PNA S/P fall resulted in subdural hematoma BPH, urinary retention, montemayor trauma High grade enterococcal bacteremia, sepsis likley 2/2 UTI in the settings of urinary retention with BPH HIgh lactic acidosis, improved Pt is stable and improving S/P Urethral trauma with montemayor in false passage: montemayor placement corrected by urologuist New febrile episode. Initial w/u sgg of new LLL PNA Plan: Continue empiric abx : Vanco, cefepim,e sptum clx if feasible Follow C/S Repeat CXR Follow temps Monitor progress Dr Bedolla back in AM
--- NOTE | 2018-03-02 17:37 | P.PNIM ---
Subjective Interval history: No acute issues overnight. Afebrile. Physical Exam Vital signs: Last Vital Signs Temp 97.4 F L 03/02/18 15:05 Pulse 72 03/02/18 15:05 Resp 18 03/02/18 15:05 BP 114/72 03/02/18 15:05 Pulse Ox 99 03/02/18 15:05 Intake & Output 02/28/18 03/01/18 03/02/18 03/03/18 06:59 06:59 06:59 06:59 Intake Total 570 / 570 1000 / 1000 872.5 / 872.5 362.5 / 362.5 Output Total 675 / 675 500 / 500 350 / 350 500 / 500 Balance -105 / -105 500 / 500 522.5 / 522.5 -137.5 / -137.5 Weight 59 kg 59.7 kg 59.7 kg Narrative: GENERAL: Chronically ill appearing male. CARDIOVASCULAR: Regular rate and rhythm without murmurs, gallops, or rubs. RESPIRATORY: Breath sounds equal bilaterally. No accessory muscle use. GASTROINTESTINAL: Abdomen soft, non-tender, nondistended. Urinary Catheter Management 3-way Urethral: Cath placed during this visit: yes Urethral indwelling: Yes Reason for continuing: Chronic Urinary Retention Insertion date: 02/09/18 Insertion time: 16:00 Coude: Cath placed during this visit: no Results Labs CBC & Chem 7: 02/28/18 06:33 03/02/18 07:44 Labs: Microbiology 02/27/18 10:40 Blood - Peripheral Aerobic Blood Culture - Preliminary No growth in 3 days 02/27/18 10:40 Blood - Peripheral Anaerobic Blood Culture - Preliminary No growth in 3 days Assessment and Plan (1) Major neurocognitive disorder due to another medical condition: Code(s): F02.80 - Dementia in other diseases classified elsewhere without behavioral disturbance Status: Acute Plan 62 Y/O male with: ACUTE SDH due to trauma/fall prior to admission - nonsurgical, stable, continue to hold any anticoagulation, keppra sz prophylaxis LACERATION to forehead due to fall/trauma sutures out, resolved. new LLL PNA hcap - cefepime/vanco - pulm tx, ezpap, sputum and blood cultures and strict aspiration precautions, change to po abx wh ok w ID. SEVERE SEPSIS due to enterococcal UTI resolved. ENTEROCOCCUS BACTEREMIA due to complicated UTI present on arrival-continue ampicillin IV times 2 weeks past negative blood cultures from 02/12/18, ampicillin started 02/13/18, last day Feb 27, DEMENTIA with behavioral disturbance continue as per neuropsychiatry, continue out of restraints HTN controlled continue norvasc, ACUTE HYPOXIC RESP FAILURE resolved, remains stable on room air ACUTE HEMATURIA DUE TO URETHRAL PERFORATION/Cespedes traumainstructed to continue Cespedes until outpatient follow-up with urology BPH w urinary retention, flomax, fu w urology dvt prophylaxis - scd DISPO - return to snf when active issues stable. Need final antibiotics recs from ID. Progress Note: Quality VTE Deep Vein Thrombosis/Pulmonary Embolism Present on Admission: No
[2018-03-03] MEDS: Oral Hygiene Kit OROPHARYNG SCH ×4 (00:31→15:46)
--- NOTE | 2018-03-03 06:11 | XR ---
EXAM DATE: 03/03/2018 6:07 AM EST AGE/SEX: 62 years / Male INDICATIONS: Fever, short of breath CLINICAL DATA: This is the patient's subsequent encounter. Patient reports that signs and symptoms h ave been present for 1 month and indicates a pain score of Nonresponsive. MEDICAL/SURGICAL HISTORY: . subdural hematoma Non-responsive. COMPARISON: [facility] – [place] CHEST 1V SINGLE AP, 02/28/2018. . FINDINGS: A single AP view of the chest demonstrates a change in the appearance of the left lower lobe infiltra te. It is more focal and consolidated relative to the prior study. No effusions. Right lung is clear. Heart is normal in size. CONCLUSION: Persistent but change in the characterization of the left lower lobe infiltrate. Electronically signed by: Carlin Hawkins MD Board Certified Radiologist 03/03/2018 6:09 AM EST
[2018-03-03] MEDS ORDERED: Pharmacy Ordered Lab Info OTHER ONE (07:45)
[2018-03-03] MEDS: QUEtiapine 25 MG Tablet PO SCH ×2 (08:11→21:03)
[2018-03-03] MEDS: Modafinil 200 MG Tablet PO SCH (08:11)
[2018-03-03] MEDS: amLODIPine 10 MG Tablet PO SCH (08:11)
[2018-03-03] MEDS: levETIRAcetam 500 MG Tablet PO SCH ×2 (08:11→21:03)
[2018-03-03] MEDS: Famotidine 20 MG Tablet PO SCH ×2 (08:11→21:03)
[2018-03-03] MEDS: Senna/Docusate Sodium 8.6/50 MG Tablet PO SCH ×2 (08:12→21:03)
[2018-03-03 08:38] LABS: Blood Urea Nitrogen 10 mg/dL (7-18); Glomerular Filtration Rate Greater Than 89 mL/min (>89)
[2018-03-03] MEDS: Vancomycin Inj 1,250 MG in Sodium Chlor 0.9% Inj 250 ML IV.SIG SCH (09:03)
--- NOTE | 2018-03-03 09:33 | P.PNFP ---
Subjective Interval history: Found in bed, aler, follows simple commands Wrist restraints in place Denies any cp, sob or abdominal pain on room air Results - Labs Result diagrams: 02/28/18 06:33 03/03/18 06:50 Abnormal lab results 03/03/18 03/03/18 Range/Units 06:50 08:00 Creatinine 0.40 L (0.60-1.30) mg/dL Vancomycin Trough 26.3 H (5.0-10.0) mcg/mL BMP 03/03/18 06:50 BUN 10 Creatinine 0.40 L - Imaging Impressions Chest X-Ray 03/03/18 00:00 CONCLUSION: Persistent but change in the characterization of the left lower lobe infiltrate. Physical Exam Vital signs: Vital Signs 03/02/18 11:45 03/02/18 15:05 03/02/18 19:36 Temperature 97.4 F L 97.4 F L Pulse Rate 72 72 66 Respiratory Rate 18 18 Blood Pressure 128/67 114/72 Pulse Oximetry 98 99 03/02/18 20:00 03/03/18 00:00 03/03/18 04:00 Temperature 99.1 F 98.9 F 97.9 F Pulse Rate 76 73 74 Respiratory Rate 20 20 20 Blood Pressure 119/60 115/74 127/75 Pulse Oximetry 99 97 96 03/03/18 07:15 Temperature 97.5 F L Pulse Rate 76 Respiratory Rate 18 Blood Pressure 135/80 Pulse Oximetry 98 Intake & Output 03/02/18 03/03/18 03/03/18 18:59 06:59 18:59 Intake Total 362.5 / 362.5 462.5 / 462.5 Output Total 725 / 725 300 / 300 Balance -362.5 / -362.5 162.5 / 162.5 Weight 60.2 kg Intake: IV 362.5 / 362.5 462.5 / 462.5 Maxipime Inj 2,000 MG In NS Inj 100 / 100 200 / 200 100 ML @ 200 mls/hr IV.SIG Q8H [facility] Rx#:[id number] Vancomycin Inj 1,250 MG In NS 262.5 / 262.5 262.5 / 262.5 Inj 250 ML @ 250 mls/hr IV.SIG Q12H [facility] Rx#:[id number] Output: Urine 300 / 300 Urine Amount (Catheter) 725 / 725 Coude 725 / 725 - Constitutional no acute distress - Routine Respiratory Exam Present: CTA bilaterally - Routine Cardiovascular Exam Present: S1 - Routine Abdominal Exam Present: soft, normoactive bowel sounds - Routine Extremities Exam Present: pulses intact - Routine Neurological Exam Present: alert - Routine Psychiatric Exam Present: cooperative - Urinary Catheter Management 3-way Urethral Cath placed during this visit: yes Urethral indwelling: Yes Reason for continuing: Chronic Urinary Retention Insertion date: 02/09/18 Insertion time: 16:00 Coude Cath placed during this visit: no Reason for continuing: Chronic Urinary Retention Assessment and Plan - Assessment (1) Severe sepsis Code(s): A41.9 - Sepsis, unspecified organism; R65.20 - Severe sepsis without septic shock Status: Acute Plan: secondary to UTI enterococcal Resolved, Id following (2) Acute subdural hematoma Code(s): S06.5X9A - Traumatic subdural hemorrhage with loss of consciousness of unspecified duration, initial encounter Status: Acute Plan: SDH r/t fall, on Keppra for seizure precautions, Cont current management anticoagulation on hold (3) Encephalopathy acute Code(s): G93.40 - Encephalopathy, unspecified Status: Acute Plan: cont to monitor, in restraints, followed by neuropsych (4) Major neurocognitive disorder due to another medical condition Code(s): F02.80 - Dementia in other diseases classified elsewhere without behavioral disturbance Status: Acute Plan: Cont current treatment for SDH and SIRS. (5) Hematuria Code(s): R31.9 - Hematuria, unspecified Status: Acute Plan: resolved Secondary to urethral perforation Cespedes in place cont until op f/u with urology - Assessment and Plan Will monitor daily and assess response to current treatment. 02/16/18 Seen in bed, he is in wrist restraints he is oriented to self. he is reported to be impulsive, Cespedes in place, urine clear yellow. VSS afebrile. HGB is stable, BS well controlled. He is on Keppra for seizure precautions, no reported activity,Will check level. Will need placement at DC. 02/19/18-Resting in bed, he is alert but confused. With some reported agitation. He is still in restraints. VSS BS controlled. Dc planning to return to Snf when cleared by ID. 02/20/18- Found in bed, he is alert and oriented to self. Vss. He is on Ampicillin q4. Per ID noted if BC negative he can cont antibiotics x 2 weeks, which put stop date at 02/27/17. He can be Dc once arrangements made. 3008 on chart. 02/21/18 - He is much more alert than when I last saw him a week ago and is conversive. He is without complaints except he says he is "tired". Plan to cont antibiotics as ordered then for D/C to SNF when cleared. 02/22/18 - Per CM last week he has been accepted back at the SNF pending finishing IV antibiotics and clearance from ID. He is afebrile with stable VS. 02/26/17- Seen this am he is alert, non conversive. Has been febrile. Breath sounds are diminished, will get cxr, U/A. Labs today show normal white count. Cont to monitor. 02/27/17- Seen this am he is alert, non conversive. He has been febrile. Urine negative, CRX yesterday shows mild new left opacity. Id reconsulted. Cont with bronchodilators, sats are maintain don room air. Nurses voice he is quite lethargic throughout day. he is on Seroquel, Provigil and Keppra. Will decrease Seroquel. Hepas to assume care on 02/28/18 0700 03/03/18- Seen this am, he is in wrist restraints, Vss afebrile. Alert follows commands. Dc when cleared by ID and arrangements made.
[2018-03-04] MEDS: Oral Hygiene Kit OROPHARYNG SCH ×4 (03:09→15:21)
[2018-03-04 08:11] LABS: Blood Urea Nitrogen 10 mg/dL (7-18); Glomerular Filtration Rate Greater Than 89 mL/min (>89)
--- NOTE | 2018-03-04 08:50 | P.PNFP ---
Subjective Interval history: In bed resting wrist restraints in place Denies any CP, SOB, follows simple commands. Results - Labs Result diagrams: 02/28/18 06:33 03/04/18 07:05 Abnormal lab results 03/03/18 03/04/18 Range/Units 08:00 07:05 Creatinine 0.48 L (0.60-1.30) mg/dL Vancomycin Trough 26.3 H (5.0-10.0) mcg/mL BMP 03/04/18 07:05 BUN 10 Creatinine 0.48 L Physical Exam Vital signs: Vital Signs 03/03/18 11:34 03/03/18 11:45 03/03/18 16:00 Temperature 97.6 F 97.6 F Pulse Rate 77 73 76 Respiratory Rate 18 18 Blood Pressure 128/80 121/78 Pulse Oximetry 92 L 96 03/03/18 20:00 03/03/18 20:02 03/03/18 23:56 Temperature 98.0 F Pulse Rate 72 75 73 Respiratory Rate 20 Blood Pressure 120/62 Pulse Oximetry 98 03/04/18 00:00 03/04/18 03:41 03/04/18 04:00 Temperature 98.1 F 98.1 F Pulse Rate 75 74 70 Respiratory Rate 18 18 Blood Pressure 118/75 127/82 Pulse Oximetry 97 98 Intake & Output 03/03/18 03/04/18 03/04/18 18:59 06:59 18:59 Intake Total 100 / 100 320 / 320 Output Total 850 / 850 400 / 400 Balance -750 / -750 -80 / -80 Weight 60.9 kg Intake: IV 100 / 100 200 / 200 Maxipime Inj 2,000 MG In NS Inj 100 / 100 200 / 200 100 ML @ 200 mls/hr IV.SIG Q8H [facility] Rx#:[id number] Oral 120 / 120 Output: Urine 400 / 400 Urine Amount (Catheter) 850 / 850 Coude 850 / 850 - Constitutional no acute distress - Routine HEENT Exam ENT: Present: mucous membranes moist - Routine Respiratory Exam Present: CTA bilaterally - Routine Cardiovascular Exam Present: S1, S2 - Routine Abdominal Exam Present: soft, normoactive bowel sounds - Routine Extremities Exam Present: pulses intact - Routine Skin Exam Present: dry, warm - Routine Neurological Exam Present: alert - Routine Psychiatric Exam Present: cooperative - Urinary Catheter Management 3-way Urethral Cath placed during this visit: yes Urethral indwelling: Yes Reason for continuing: Chronic Urinary Retention Insertion date: 02/09/18 Insertion time: 16:00 Coude Cath placed during this visit: no Reason for continuing: Chronic Urinary Retention Assessment and Plan - Assessment (1) Left lower lobe pneumonia Code(s): J18.1 - Lobar pneumonia, unspecified organism Status: Acute Plan: on cxr on 02/26/18 Id following, on cefepime afebrile. (2) Severe sepsis Code(s): A41.9 - Sepsis, unspecified organism; R65.20 - Severe sepsis without septic shock Status: Acute Plan: secondary to UTI enterococcal Resolved, Id following (3) Acute subdural hematoma Code(s): S06.5X9A - Traumatic subdural hemorrhage with loss of consciousness of unspecified duration, initial encounter Status: Acute Plan: SDH r/t fall, on Keppra for seizure precautions, Cont current management anticoagulation on hold (4) Encephalopathy acute Code(s): G93.40 - Encephalopathy, unspecified Status: Acute Plan: cont to monitor, in restraints, followed by neuropsych (5) Major neurocognitive disorder due to another medical condition Code(s): F02.80 - Dementia in other diseases classified elsewhere without behavioral disturbance Status: Acute Plan: Cont current treatment for SDH and SIRS. (6) Hematuria Code(s): R31.9 - Hematuria, unspecified Status: Acute Plan: resolved Secondary to urethral perforation Cespedes in place cont until op f/u with urology - Assessment and Plan Will monitor daily and assess response to current treatment. 02/16/18 Seen in bed, he is in wrist restraints he is oriented to self. he is reported to be impulsive, Cespedes in place, urine clear yellow. VSS afebrile. HGB is stable, BS well controlled. He is on Keppra for seizure precautions, no reported activity,Will check level. Will need placement at DC. 02/19/18-Resting in bed, he is alert but confused. With some reported agitation. He is still in restraints. VSS BS controlled. Dc planning to return to Snf when cleared by ID. 02/20/18- Found in bed, he is alert and oriented to self. Vss. He is on Ampicillin q4. Per ID noted if BC negative he can cont antibiotics x 2 weeks, which put stop date at 02/27/17. He can be Dc once arrangements made. 3008 on chart. 02/21/18 - He is much more alert than when I last saw him a week ago and is conversive. He is without complaints except he says he is "tired". Plan to cont antibiotics as ordered then for D/C to SNF when cleared. 02/22/18 - Per CM last week he has been accepted back at the SNF pending finishing IV antibiotics and clearance from ID. He is afebrile with stable VS. 02/26/17- Seen this am he is alert, non conversive. Has been febrile. Breath sounds are diminished, will get cxr, U/A. Labs today show normal white count. Cont to monitor. 02/27/17- Seen this am he is alert, non conversive. He has been febrile. Urine negative, CRX yesterday shows mild new left opacity. Id reconsulted. Cont with bronchodilators, sats are maintain don room air. Nurses voice he is quite lethargic throughout day. he is on Seroquel, Provigil and Keppra. Will decrease Seroquel. Hepas to assume care on 02/28/18 0700 03/03/18- Seen this am, he is in wrist restraints, Vss afebrile. Alert follows commands. Dc when cleared by ID and arrangements made. 03/04/17- Afebrile, VSS. Remains in wrist restraints. Alert follows simple commands. Will request ID recommendation for po antibiotics so patient can be DC to snf. Per CM notes bed available. BC in 02/27/18 NTD.
[2018-03-04] MEDS: amLODIPine 10 MG Tablet PO SCH (09:12)
[2018-03-04] MEDS: levETIRAcetam 500 MG Tablet PO SCH ×2 (09:12→21:26)
[2018-03-04] MEDS: Senna/Docusate Sodium 8.6/50 MG Tablet PO SCH ×2 (09:12→21:27)
[2018-03-04] MEDS: QUEtiapine 25 MG Tablet PO SCH ×2 (09:12→21:26)
[2018-03-04] MEDS: Modafinil 200 MG Tablet PO SCH (09:12)
[2018-03-04] MEDS: Famotidine 20 MG Tablet PO SCH ×2 (09:12→21:26)
[2018-03-04] MEDS: Vancomycin Inj 1,000 MG in Sodium Chlor 0.9% Inj 250 ML IV.SIG SCH (13:34)
--- NOTE | 2018-03-04 23:42 | P.PNID ---
Subjective Remarks: Idelayed entry Pt wS seen earlier today clearly better MS, much less confused more interactive Antibiotics: Vanco Cefepime Allergies/Adverse Reactions: Allergies codeine Allergy (Severe, Unverified 12/12/17 13:15) PASSES OUT Objective Vital Signs 03/03/18 23:56 03/04/18 00:00 03/04/18 03:41 Temperature 98.1 F Pulse Rate 73 75 74 Respiratory Rate 18 Blood Pressure 118/75 Pulse Oximetry 97 03/04/18 04:00 03/04/18 08:00 03/04/18 12:00 Temperature 98.1 F 97.4 F L 98 F Pulse Rate 70 71 75 Respiratory Rate 18 18 18 Blood Pressure 127/82 136/84 108/77 Pulse Oximetry 98 98 98 03/04/18 16:00 03/04/18 18:34 03/04/18 20:00 Temperature 97.6 F 99.1 F Pulse Rate 71 66 69 Respiratory Rate 18 18 Blood Pressure 131/78 131/84 Pulse Oximetry 98 100 Intake & Output 03/04/18 03/04/18 03/05/18 06:59 18:59 06:59 Intake Total 320 / 320 350 / 350 Output Total 400 / 400 400 / 400 Balance -80 / -80 -50 / -50 Weight 60.9 kg Intake: IV 200 / 200 350 / 350 Maxipime Inj 2,000 MG In NS Inj 200 / 200 100 / 100 100 ML @ 200 mls/hr IV.SIG Q8H [facility] Rx#:[id number] Vancomycin Inj 1,000 MG In NS 250 / 250 Inj 250 ML @ 250 mls/hr IV.SIG Q24H [facility] Rx#:[id number] Oral 120 / 120 Output: Urine 400 / 400 400 / 400 02/27/18 10:40 Blood - Peripheral Aerobic Blood Culture - Final No growth in 5 days 02/27/18 10:40 Blood - Peripheral Anaerobic Blood Culture - Final No growth in 5 days Lab - Chemistry Results 03/03/18 03/04/18 06:50 07:05 BUN 10 10 Creatinine 0.40 L 0.48 L Estimated GFR Greater than 89 Greater than 89 Imaging: ITS Impressions Cervical Spine CT 02/09/18 20:32 CONCLUSION: 1. Negative trauma CT. Abdomen/Bladder Ultrasound 02/10/18 00:00 CONCLUSION: 1. Mild right hydronephrosis. 2. Distended urinary bladder with avascular debris along the dependent aspect. Given the clinical history this could represent blood clot. Consider follow-up to confirm resolution. There is no blood flow in this structure to suggest that it represents a mass. 3. Montemayor catheter is likely misplaced potentially in the posterior/prostatic urethra. It is not visualized within the bladder and urinary bladder is distended. Head CT 02/10/18 06:00 CONCLUSION: 1. Stable right temporal parietal subdural hematoma. 2. No new findings. . Abdomen/Pelvis CT 02/10/18 18:49 CONCLUSION: 1. Extension of Montemayor catheter outside of the urethral lumen into the left sided perineal soft tissues. Findings indicate traumatic perforation of the urethra. There is gas in the surrounding perineal soft tissues. The Montemayor catheter balloon is inflated in this region outside of the urethral lumen. 2. Distended urinary bladder. 3. Mild prominence of the proximal renal collecting systems without shanelle hydronephrosis. 4. Enlarged prostate. 5. Findings were discussed with the patient's nurse. Chest X-Ray 03/03/18 00:00 CONCLUSION: Persistent but change in the characterization of the left lower lobe infiltrate. Physical Exam: GENERAL: Awakens easily, responding, NAD SKIN: Warm and dry HEAD: Atraumatic. Normocephalic. EYES: Pupils equal and round. No scleral icterus. No injection or drainage. ENT: No nasal bleeding or discharge. Mucous membranes pink and moist. NECK: Trachea midline. No JVD. CARDIOVASCULAR: Regular rate and rhythm. RESPIRATORY: Clear to auscultation. Breath sounds equal bilaterally. Decreased at bases GASTROINTESTINAL: Abdomen soft, non-tender, mildly distended. : montemayor in place with clear light yellow urine MUSCULOSKELETAL: Extremities without clubbing, cyanosis, or edema. NEUROLOGICAL: awns easily, answering my questions partially orinetd, not to time PSYCHIATRIC: unable to assess Assessment and Plan - Plan New Fever, ?new PNA S/P fall resulted in subdural hematoma BPH, urinary retention, montemayor trauma High grade enterococcal bacteremia, sepsis likley 2/2 UTI in the settings of urinary retention with BPH HIgh lactic acidosis, improved Pt is stable and improving S/P Urethral trauma with montemayor in false passage: montemayor placement corrected by urologuist New febrile episode. Initial w/u sgg of new LLL PNA Plan: Continue empiric abx : Vanco, cefepim,e fu clx, fu WBC
[2018-03-05] MEDS: Oral Hygiene Kit OROPHARYNG SCH ×3 (03:17→15:10)
[2018-03-05 08:44] LABS: Blood Urea Nitrogen 8 mg/dL (7-18); Glomerular Filtration Rate Greater Than 89 mL/min (>89)
[2018-03-05] MEDS: Famotidine 20 MG Tablet PO SCH ×2 (09:06→21:40)
[2018-03-05] MEDS: Modafinil 200 MG Tablet PO SCH (09:06)
[2018-03-05] MEDS: Senna/Docusate Sodium 8.6/50 MG Tablet PO SCH ×2 (09:06→21:40)
[2018-03-05] MEDS: levETIRAcetam 500 MG Tablet PO SCH ×2 (09:06→21:40)
[2018-03-05] MEDS: QUEtiapine 25 MG Tablet PO SCH ×2 (09:06→21:40)
[2018-03-05] MEDS: amLODIPine 10 MG Tablet PO SCH (09:06)
--- NOTE | 2018-03-05 10:28 | P.PNFP ---
Subjective Interval history: Resting in bed, he is alert follows simple commands appears comfortable denies any cp, or sob Results - Labs Result diagrams: 02/28/18 06:33 03/05/18 08:04 Abnormal lab results 03/05/18 Range/Units 08:04 Creatinine 0.45 L (0.60-1.30) mg/dL BMP 03/05/18 08:04 BUN 8 Creatinine 0.45 L Physical Exam Vital signs: Vital Signs 03/04/18 12:00 03/04/18 16:00 03/04/18 18:34 Temperature 98 F 97.6 F Pulse Rate 75 71 66 Respiratory Rate 18 18 Blood Pressure 108/77 131/78 Pulse Oximetry 98 98 03/04/18 20:00 03/05/18 00:00 03/05/18 04:00 Temperature 99.1 F 98.8 F 98.4 F Pulse Rate 66 74 79 Respiratory Rate 18 18 18 Blood Pressure 131/84 129/75 130/80 Pulse Oximetry 100 97 95 03/05/18 08:00 Temperature 97.4 F L Pulse Rate 71 Respiratory Rate 20 Blood Pressure 135/85 Pulse Oximetry 97 Intake & Output 03/04/18 03/05/18 03/05/18 18:59 06:59 18:59 Intake Total 350 / 350 200 / 200 Output Total 400 / 400 850 / 850 Balance -50 / -50 -650 / -650 Weight 61.7 kg Intake: IV 350 / 350 200 / 200 Maxipime Inj 2,000 MG In NS Inj 100 / 100 200 / 200 100 ML @ 200 mls/hr IV.SIG Q8H [facility] Rx#:[id number] Vancomycin Inj 1,000 MG In NS 250 / 250 Inj 250 ML @ 250 mls/hr IV.SIG Q24H [facility] Rx#:[id number] Output: Urine 400 / 400 850 / 850 Other: Date of Last Bowel Movement 02/25/18 - Constitutional no acute distress - Routine HEENT Exam Eye: Present: PERRL ENT: Present: mucous membranes moist - Routine Respiratory Exam Present: CTA bilaterally - Routine Cardiovascular Exam Present: S1, S2 - Routine Abdominal Exam Present: soft, normoactive bowel sounds - Routine Extremities Exam Present: pulses intact - Routine Skin Exam Present: dry, warm - Routine Neurological Exam Present: alert - Urinary Catheter Management 3-way Urethral Cath placed during this visit: yes Urethral indwelling: Yes Reason for continuing: Chronic Urinary Retention Insertion date: 02/09/18 Insertion time: 16:00 Coude Cath placed during this visit: no Reason for continuing: Chronic Urinary Retention Assessment and Plan - Assessment (1) Left lower lobe pneumonia Code(s): J18.1 - Lobar pneumonia, unspecified organism Status: Acute Plan: on cxr on 02/26/18 Id following, on cefepime and vanco afebrile. (2) Severe sepsis Code(s): A41.9 - Sepsis, unspecified organism; R65.20 - Severe sepsis without septic shock Status: Acute Plan: secondary to UTI enterococcal Resolved, Id following (3) Acute subdural hematoma Code(s): S06.5X9A - Traumatic subdural hemorrhage with loss of consciousness of unspecified duration, initial encounter Status: Acute Plan: SDH r/t fall, on Keppra for seizure precautions, Cont current management anticoagulation on hold (4) Encephalopathy acute Code(s): G93.40 - Encephalopathy, unspecified Status: Acute Plan: cont to monitor, in restraints, followed by psych (5) Major neurocognitive disorder due to another medical condition Code(s): F02.80 - Dementia in other diseases classified elsewhere without behavioral disturbance Status: Acute Plan: Cont current treatment for SDH and SIRS. (6) Hematuria Code(s): R31.9 - Hematuria, unspecified Status: Acute Plan: resolved Secondary to urethral perforation Cespedes in place cont until op f/u with urology - Assessment and Plan Will monitor daily and assess response to current treatment. 02/16/18 Seen in bed, he is in wrist restraints he is oriented to self. he is reported to be impulsive, Cespedes in place, urine clear yellow. VSS afebrile. HGB is stable, BS well controlled. He is on Keppra for seizure precautions, no reported activity,Will check level. Will need placement at DC. 02/19/18-Resting in bed, he is alert but confused. With some reported agitation. He is still in restraints. VSS BS controlled. Dc planning to return to Snf when cleared by ID. 02/20/18- Found in bed, he is alert and oriented to self. Vss. He is on Ampicillin q4. Per ID noted if BC negative he can cont antibiotics x 2 weeks, which put stop date at 02/27/17. He can be Dc once arrangements made. 3008 on chart. 02/21/18 - He is much more alert than when I last saw him a week ago and is conversive. He is without complaints except he says he is "tired". Plan to cont antibiotics as ordered then for D/C to SNF when cleared. 02/22/18 - Per CM last week he has been accepted back at the SNF pending finishing IV antibiotics and clearance from ID. He is afebrile with stable VS. 02/26/17- Seen this am he is alert, non conversive. Has been febrile. Breath sounds are diminished, will get cxr, U/A. Labs today show normal white count. Cont to monitor. 02/27/17- Seen this am he is alert, non conversive. He has been febrile. Urine negative, CRX yesterday shows mild new left opacity. Id reconsulted. Cont with bronchodilators, sats are maintain don room air. Nurses voice he is quite lethargic throughout day. he is on Seroquel, Provigil and Keppra. Will decrease Seroquel. Hepas to assume care on 02/28/18 0700 03/03/18- Seen this am, he is in wrist restraints, Vss afebrile. Alert follows commands. Dc when cleared by ID and arrangements made. 03/04/17- Afebrile, VSS. Remains in wrist restraints. Alert follows simple commands. Will request ID recommendation for po antibiotics so patient can be DC to snf. Per CM notes bed available. BC in 02/27/18 NTD. 03/05/18- Seen this am he is alert wrist restrained in place. He answers appropriately denies Cp, SOB. He remains afebrile, vss. Cont IV antibiotics, Dc when cleared by ID.
[2018-03-05 12:43] LABS: Hematocrit 32.4 % (39.0-51.0); Hemoglobin 10.9 gm/dL (13.0-17.0); Mean Corpuscular HGB Conc 33.8 % (32.0-36.0); Mean Corpuscular Hemoglobin 30.3 pg (27.0-34.0); Mean Corpuscular Volume 89.6 fL (80.0-100.0); Mean Platelet Volume 9.1 fL (7.0-11.0); Platelet Count 256 th/mm3 (150-450); Red Blood Count 3.61 mil/mm3 (4.50-5.90); Red Cell Distribution Width 13.9 % (11.6-17.2); White Blood Count 4.6 th/mm3 (4.0-11.0)
[2018-03-05] MEDS: Vancomycin Inj 1,000 MG in Sodium Chlor 0.9% Inj 250 ML IV.SIG SCH (15:10)
[2018-03-06] MEDS: Oral Hygiene Kit OROPHARYNG SCH ×4 (03:00→15:56)
[2018-03-06] MEDS: amLODIPine 10 MG Tablet PO SCH (08:45)
[2018-03-06] MEDS: levETIRAcetam 500 MG Tablet PO SCH ×2 (08:45→21:25)
[2018-03-06] MEDS: QUEtiapine 25 MG Tablet PO SCH ×2 (08:45→21:25)
[2018-03-06] MEDS: Modafinil 200 MG Tablet PO SCH (08:45)
[2018-03-06] MEDS: Famotidine 20 MG Tablet PO SCH ×2 (08:45→21:25)
[2018-03-06] MEDS: Senna/Docusate Sodium 8.6/50 MG Tablet PO SCH ×2 (08:45→21:25)
[2018-03-06 09:11] LABS: Blood Urea Nitrogen 11 mg/dL (7-18); Glomerular Filtration Rate Greater Than 89 mL/min (>89)
--- NOTE | 2018-03-06 09:46 | P.PNFP ---
Subjective Interval history: He is arousable today but is not conversive. He remains afebrile with stable VS. Results - Labs Result diagrams: 03/05/18 11:58 03/06/18 05:50 Abnormal lab results 03/05/18 03/06/18 Range/Units 11:58 05:50 RBC 3.61 L (4.50-5.90) mil/mm3 Hgb 10.9 L (13.0-17.0) gm/dL Hct 32.4 L (39.0-51.0) % Creatinine 0.48 L (0.60-1.30) mg/dL Short CBC 03/05/18 Range/Units 11:58 WBC 4.6 (4.0-11.0) th/mm3 Hgb 10.9 L (13.0-17.0) gm/dL Hct 32.4 L (39.0-51.0) % Plt Count 256 (150-450) th/mm3 BMP 03/06/18 05:50 BUN 11 Creatinine 0.48 L Physical Exam Vital signs: Vital Signs 03/05/18 12:00 03/05/18 16:00 03/05/18 20:00 Temperature 97.4 F L 97.3 F L 98.9 F Pulse Rate 77 75 Respiratory Rate 20 20 18 Blood Pressure 110/73 119/70 111/72 Pulse Oximetry 97 97 98 03/06/18 00:00 03/06/18 04:00 03/06/18 08:18 Temperature 98.5 F 98.9 F 97.7 F Pulse Rate 79 70 66 Respiratory Rate 18 18 16 Blood Pressure 137/91 H 134/91 H 124/81 Pulse Oximetry 95 98 99 Intake & Output 03/05/18 03/06/18 03/06/18 18:59 06:59 18:59 Intake Total 1350 / 1350 440 / 440 Output Total 1250 / 1250 Balance 100 / 100 440 / 440 Weight 59.5 kg Intake: IV 350 / 350 200 / 200 Maxipime Inj 2,000 MG In NS Inj 100 / 100 200 / 200 100 ML @ 200 mls/hr IV.SIG Q8H [facility] Rx#:[id number] Vancomycin Inj 1,000 MG In NS 250 / 250 Inj 250 ML @ 250 mls/hr IV.SIG Q24H [facility] Rx#:[id number] Oral 1000 / 1000 240 / 240 Output: Urine 800 / 800 Urine Amount (Catheter) 450 / 450 Coude 450 / 450 Other: Date of Last Bowel Movement 02/25/18 # Bowel Movements 0 # Incontinent Bowel Movements 1 - Constitutional no acute distress - Routine HEENT Exam Head: Present: normocephalic, atraumatic Eye: Present: PERRL, normal accommodation ENT: Present: mucous membranes moist - Routine Neck Exam Present: supple - Routine Respiratory Exam Present: distant breath sounds - Routine Cardiovascular Exam Present: RRR, S1, S2 - Routine Abdominal Exam Present: soft, normoactive bowel sounds - Routine Extremities Exam Absent: cyanosis - Routine Skin Exam Present: intact - Routine Neurological Exam Present: altered mental status - Detailed Neurological Exam: Coma Scale Eye Opening: To sound Verbal Response: None Motor Response: Localizing Rani Coma Scale Total: 9 - Routine Psychiatric Exam Present: unable to assess - Urinary Catheter Management 3-way Urethral Cath placed during this visit: yes Urethral indwelling: Yes Reason for continuing: Chronic Urinary Retention Insertion date: 02/09/18 Insertion time: 16:00 Coude Cath placed during this visit: no Reason for continuing: Chronic Urinary Retention Assessment and Plan - Assessment (1) Left lower lobe pneumonia Code(s): J18.1 - Lobar pneumonia, unspecified organism Status: Acute Plan: on cxr on 02/26/18 Id following, on cefepime and vanco afebrile. (2) Severe sepsis Code(s): A41.9 - Sepsis, unspecified organism; R65.20 - Severe sepsis without septic shock Status: Acute Plan: secondary to UTI enterococcal Resolved, Id following (3) Acute subdural hematoma Code(s): S06.5X9A - Traumatic subdural hemorrhage with loss of consciousness of unspecified duration, initial encounter Status: Acute Plan: SDH r/t fall, on Keppra for seizure precautions, Cont current management anticoagulation on hold (4) Encephalopathy acute Code(s): G93.40 - Encephalopathy, unspecified Status: Acute Plan: cont to monitor, in restraints, followed by psych (5) Major neurocognitive disorder due to another medical condition Code(s): F02.80 - Dementia in other diseases classified elsewhere without behavioral disturbance Status: Acute Plan: Cont current treatment for SDH and SIRS. (6) Hematuria Code(s): R31.9 - Hematuria, unspecified Status: Acute Plan: resolved Secondary to urethral perforation Cespedes in place cont until op f/u with urology - Assessment and Plan Will monitor daily and assess response to current treatment. 02/16/18 Seen in bed, he is in wrist restraints he is oriented to self. he is reported to be impulsive, Cespedes in place, urine clear yellow. VSS afebrile. HGB is stable, BS well controlled. He is on Keppra for seizure precautions, no reported activity,Will check level. Will need placement at DC. 02/19/18-Resting in bed, he is alert but confused. With some reported agitation. He is still in restraints. VSS BS controlled. Dc planning to return to Snf when cleared by ID. 02/20/18- Found in bed, he is alert and oriented to self. Vss. He is on Ampicillin q4. Per ID noted if BC negative he can cont antibiotics x 2 weeks, which put stop date at 02/27/17. He can be Dc once arrangements made. 3008 on chart. 02/21/18 - He is much more alert than when I last saw him a week ago and is conversive. He is without complaints except he says he is "tired". Plan to cont antibiotics as ordered then for D/C to SNF when cleared. 02/22/18 - Per CM last week he has been accepted back at the SNF pending finishing IV antibiotics and clearance from ID. He is afebrile with stable VS. 02/26/17- Seen this am he is alert, non conversive. Has been febrile. Breath sounds are diminished, will get cxr, U/A. Labs today show normal white count. Cont to monitor. 02/27/17- Seen this am he is alert, non conversive. He has been febrile. Urine negative, CRX yesterday shows mild new left opacity. Id reconsulted. Cont with bronchodilators, sats are maintain don room air. Nurses voice he is quite lethargic throughout day. he is on Seroquel, Provigil and Keppra. Will decrease Seroquel. Hepas to assume care on 02/28/18 0700 03/03/18- Seen this am, he is in wrist restraints, Vss afebrile. Alert follows commands. Dc when cleared by ID and arrangements made. 03/04/17- Afebrile, VSS. Remains in wrist restraints. Alert follows simple commands. Will request ID recommendation for po antibiotics so patient can be DC to snf. Per CM notes bed available. BC in 02/27/18 NTD. 03/05/18- Seen this am he is alert wrist restrained in place. He answers appropriately denies Cp, SOB. He remains afebrile, vss. Cont IV antibiotics, Dc when cleared by ID. 03/06/18 - He is not conversive today but arousable. He remains on anticiotics per ID. Will cont to monitor and F/U healthcare network pricing consultant recommendations.
[2018-03-06] MEDS: Vancomycin Inj 1,000 MG in Sodium Chlor 0.9% Inj 250 ML IV.SIG SCH (15:55)
--- NOTE | 2018-03-07 00:05 | P.PNID ---
Subjective Remarks: Idelayed entry Pt waS seen yday on 03/06 pt is very confused non verbal Antibiotics: Vanco Cefepime Allergies/Adverse Reactions: Allergies codeine Allergy (Severe, Unverified 12/12/17 13:15) PASSES OUT Objective Vital Signs 03/06/18 04:00 03/06/18 08:18 03/06/18 12:00 Temperature 98.9 F 97.7 F 97.7 F Pulse Rate 70 66 77 Respiratory Rate 18 16 18 Blood Pressure 134/91 H 124/81 118/73 Pulse Oximetry 98 99 99 03/06/18 16:00 03/06/18 20:00 Temperature 97.2 F L 98.4 F Pulse Rate 68 74 Respiratory Rate 18 18 Blood Pressure 117/75 132/81 Pulse Oximetry 99 98 Intake & Output 03/06/18 03/06/18 03/07/18 06:59 18:59 06:59 Intake Total 440 / 440 1350 / 1350 Balance 440 / 440 1350 / 1350 Weight 59.5 kg Intake: IV 200 / 200 350 / 350 Maxipime Inj 2,000 MG In NS Inj 200 / 200 100 / 100 100 ML @ 200 mls/hr IV.SIG Q8H [facility] Rx#:[id number] Vancomycin Inj 1,000 MG In NS 250 / 250 Inj 250 ML @ 250 mls/hr IV.SIG Q24H [facility] Rx#:[id number] Oral 240 / 240 1000 / 1000 Other: Date of Last Bowel Movement 03/06/18 03/06/18 # Incontinent Bowel Movements 1 1 02/27/18 10:40 Blood - Peripheral Aerobic Blood Culture - Final No growth in 5 days 02/27/18 10:40 Blood - Peripheral Anaerobic Blood Culture - Final No growth in 5 days Lab - Hematology Results 03/05/18 11:58 WBC 4.6 RBC 3.61 L Hgb 10.9 L Hct 32.4 L MCV 89.6 MCH 30.3 MCHC 33.8 RDW 13.9 Plt Count 256 MPV 9.1 Lab - Chemistry Results 03/05/18 03/06/18 08:04 05:50 BUN 8 11 Creatinine 0.45 L 0.48 L Estimated GFR Greater than 89 Greater than 89 Imaging: ITS Impressions Cervical Spine CT 02/09/18 20:32 CONCLUSION: 1. Negative trauma CT. Abdomen/Bladder Ultrasound 02/10/18 00:00 CONCLUSION: 1. Mild right hydronephrosis. 2. Distended urinary bladder with avascular debris along the dependent aspect. Given the clinical history this could represent blood clot. Consider follow-up to confirm resolution. There is no blood flow in this structure to suggest that it represents a mass. 3. Montemayor catheter is likely misplaced potentially in the posterior/prostatic urethra. It is not visualized within the bladder and urinary bladder is distended. Head CT 02/10/18 06:00 CONCLUSION: 1. Stable right temporal parietal subdural hematoma. 2. No new findings. . Abdomen/Pelvis CT 02/10/18 18:49 CONCLUSION: 1. Extension of Montemayor catheter outside of the urethral lumen into the left sided perineal soft tissues. Findings indicate traumatic perforation of the urethra. There is gas in the surrounding perineal soft tissues. The Montemayor catheter balloon is inflated in this region outside of the urethral lumen. 2. Distended urinary bladder. 3. Mild prominence of the proximal renal collecting systems without shanelle hydronephrosis. 4. Enlarged prostate. 5. Findings were discussed with the patient's nurse. Chest X-Ray 03/03/18 00:00 CONCLUSION: Persistent but change in the characterization of the left lower lobe infiltrate. Physical Exam: GENERAL: Awakens easily, responding, NAD SKIN: Warm and dry HEAD: Atraumatic. Normocephalic. EYES: Pupils equal and round. No scleral icterus. No injection or drainage. ENT: No nasal bleeding or discharge. Mucous membranes pink and moist. NECK: Trachea midline. No JVD. CARDIOVASCULAR: Regular rate and rhythm. RESPIRATORY: Clear to auscultation. Breath sounds equal bilaterally. Decreased at bases GASTROINTESTINAL: Abdomen soft, non-tender, mildly distended. : montemayor in place with clear light yellow urine MUSCULOSKELETAL: Extremities without clubbing, cyanosis, or edema. NEUROLOGICAL: easily arousable, not follows not very interactive PSYCHIATRIC: unable to assess Assessment and Plan - Plan New Fever, ?new PNA S/P fall resulted in subdural hematoma BPH, urinary retention, montemayor trauma High grade enterococcal bacteremia, sepsis likley 2/2 UTI in the settings of urinary retention with BPH HIgh lactic acidosis, improved Pt is stable and improving S/P Urethral trauma with montemayor in false passage: montemayor placement corrected by urologuist LLL PNA resolved fever no leukocytosis Plan: dc abx fu WBC fu CXR
[2018-03-07] MEDS: Oral Hygiene Kit OROPHARYNG SCH ×4 (01:06→15:33)
[2018-03-07] MEDS: amLODIPine 10 MG Tablet PO SCH (09:03)
[2018-03-07] MEDS: Modafinil 200 MG Tablet PO SCH (09:04)
[2018-03-07] MEDS: levETIRAcetam 500 MG Tablet PO SCH ×2 (09:04→22:18)
[2018-03-07] MEDS: QUEtiapine 25 MG Tablet PO SCH ×2 (09:04→22:18)
[2018-03-07] MEDS: Famotidine 20 MG Tablet PO SCH ×2 (09:04→22:18)
[2018-03-07] MEDS: Senna/Docusate Sodium 8.6/50 MG Tablet PO SCH ×2 (09:04→22:18)
[2018-03-07 09:50] LABS: Baso % (Auto) 0.9 % (0.0-2.0); Eos # (Auto) 0.3 th/mm3 (0.0-0.4); Eos % (Auto) 5.9 % (0.0-4.0); Hematocrit 33.6 % (39.0-51.0); Hemoglobin 11.1 gm/dL (13.0-17.0); Lymph # (Auto) 1.4 th/mm3 (1.0-4.8); Lymph % (Auto) 30.2 % (9.0-44.0); Mean Corpuscular HGB Conc 33.1 % (32.0-36.0); Mean Corpuscular Hemoglobin 29.8 pg (27.0-34.0); Mean Corpuscular Volume 90.2 fL (80.0-100.0); Mean Platelet Volume 9.1 fL (7.0-11.0); Mono # (Auto) 0.4 th/mm3 (0.0-0.9); Mono % (Auto) 9.1 % (0.0-8.0); Neut # (Auto) 2.4 th/mm3 (1.8-7.7); Neut % (Auto) 53.9 % (16.0-70.0); Platelet Count 257 th/mm3 (150-450); Red Blood Count 3.73 mil/mm3 (4.50-5.90); Red Cell Distribution Width 14.5 % (11.6-17.2); White Blood Count 4.5 th/mm3 (4.0-11.0)
[2018-03-07 10:08] LABS: Blood Urea Nitrogen 10 mg/dL (7-18); Glomerular Filtration Rate Greater Than 89 mL/min (>89)
--- NOTE | 2018-03-07 11:34 | P.PNFP ---
Subjective Interval history: More alert and responsive today. Was found last night to have montemayor dislodged and not in bladder but was replaced by Urology. CM indicates he has been accepted in transfer to [facility] when cleared for D/C. Results - Labs Result diagrams: 03/07/18 08:50 03/07/18 08:50 Abnormal lab results 03/07/18 03/07/18 Range/Units 08:50 08:50 RBC 3.73 L (4.50-5.90) mil/mm3 Hgb 11.1 L (13.0-17.0) gm/dL Hct 33.6 L (39.0-51.0) % [place] % (Auto) 9.1 H (0.0-8.0) % Eos % (Auto) 5.9 H (0.0-4.0) % Creatinine 0.40 L (0.60-1.30) mg/dL Short CBC 03/07/18 Range/Units 08:50 WBC 4.5 (4.0-11.0) th/mm3 Hgb 11.1 L (13.0-17.0) gm/dL Hct 33.6 L (39.0-51.0) % Plt Count 257 (150-450) th/mm3 BMP 03/07/18 08:50 BUN 10 Creatinine 0.40 L Physical Exam Vital signs: Vital Signs 03/06/18 12:00 03/06/18 16:00 03/06/18 20:00 Temperature 97.7 F 97.2 F L 98.4 F Pulse Rate 77 68 74 Respiratory Rate 18 18 18 Blood Pressure 118/73 117/75 132/81 Pulse Oximetry 99 99 98 03/07/18 00:00 03/07/18 04:00 03/07/18 07:55 Temperature 98.6 F 98.1 F 97.7 F Pulse Rate 78 73 70 Respiratory Rate 18 18 16 Blood Pressure 142/81 H 135/77 141/82 H Pulse Oximetry 97 96 100 Intake & Output 03/06/18 03/07/18 03/07/18 18:59 06:59 18:59 Intake Total 1350 / 1350 100 / 100 Output Total 850 / 850 Balance 1350 / 1350 -750 / -750 Weight 59.5 kg Intake: IV 350 / 350 100 / 100 Maxipime Inj 2,000 MG In NS Inj 100 / 100 100 / 100 100 ML @ 200 mls/hr IV.SIG Q8H [facility] Rx#:[id number] Vancomycin Inj 1,000 MG In NS 250 / 250 Inj 250 ML @ 250 mls/hr IV.SIG Q24H [facility] Rx#:[id number] Oral 1000 / 1000 Output: Urine 850 / 850 Other: Date of Last Bowel Movement 03/06/18 03/06/18 # Incontinent Bowel Movements 1 1 - Constitutional no acute distress - Routine HEENT Exam Head: Present: normocephalic Eye: Present: PERRL ENT: Present: mucous membranes moist - Routine Neck Exam Present: supple - Routine Respiratory Exam Present: CTA bilaterally, distant breath sounds - Routine Cardiovascular Exam Present: RRR - Routine Abdominal Exam Present: soft, normoactive bowel sounds - Routine Extremities Exam Absent: edema - Routine Skin Exam Present: intact - Routine Neurological Exam Present: alert - Detailed Neurological Exam: Coma Scale Eye Opening: To sound Verbal Response: Words Motor Response: Localizing Jber Coma Scale Total: 11 - Routine Psychiatric Exam Present: unable to assess - Urinary Catheter Management 3-way Urethral Cath placed during this visit: yes Urethral indwelling: Yes Reason for continuing: Chronic Urinary Retention Insertion date: 02/09/18 Insertion time: 16:00 Coude Cath placed during this visit: no Reason for continuing: Chronic Urinary Retention Assessment and Plan - Assessment (1) Left lower lobe pneumonia Code(s): J18.1 - Lobar pneumonia, unspecified organism Status: Acute Plan: on cxr on 02/26/18 Id following, on cefepime and vanco afebrile. (2) Severe sepsis Code(s): A41.9 - Sepsis, unspecified organism; R65.20 - Severe sepsis without septic shock Status: Acute Plan: secondary to UTI enterococcal Resolved, Id following (3) Acute subdural hematoma Code(s): S06.5X9A - Traumatic subdural hemorrhage with loss of consciousness of unspecified duration, initial encounter Status: Acute Plan: SDH r/t fall, on Keppra for seizure precautions, Cont current management anticoagulation on hold (4) Encephalopathy acute Code(s): G93.40 - Encephalopathy, unspecified Status: Acute Plan: cont to monitor, in restraints, followed by psych (5) Major neurocognitive disorder due to another medical condition Code(s): F02.80 - Dementia in other diseases classified elsewhere without behavioral disturbance Status: Acute Plan: Cont current treatment for SDH and SIRS. (6) Hematuria Code(s): R31.9 - Hematuria, unspecified Status: Acute Plan: resolved Secondary to urethral perforation Montemayor in place cont until op f/u with urology - Assessment and Plan Will monitor daily and assess response to current treatment. 02/16/18 Seen in bed, he is in wrist restraints he is oriented to self. he is reported to be impulsive, Montemayor in place, urine clear yellow. VSS afebrile. HGB is stable, BS well controlled. He is on Keppra for seizure precautions, no reported activity,Will check level. Will need placement at DC. 02/19/18-Resting in bed, he is alert but confused. With some reported agitation. He is still in restraints. VSS BS controlled. Dc planning to return to Snf when cleared by ID. 02/20/18- Found in bed, he is alert and oriented to self. Vss. He is on Ampicillin q4. Per ID noted if BC negative he can cont antibiotics x 2 weeks, which put stop date at 02/27/17. He can be Dc once arrangements made. 3008 on chart. 02/21/18 - He is much more alert than when I last saw him a week ago and is conversive. He is without complaints except he says he is "tired". Plan to cont antibiotics as ordered then for D/C to SNF when cleared. 02/22/18 - Per CM last week he has been accepted back at the SNF pending finishing IV antibiotics and clearance from ID. He is afebrile with stable VS. 02/26/17- Seen this am he is alert, non conversive. Has been febrile. Breath sounds are diminished, will get cxr, U/A. Labs today show normal white count. Cont to monitor. 02/27/17- Seen this am he is alert, non conversive. He has been febrile. Urine negative, CRX yesterday shows mild new left opacity. Id reconsulted. Cont with bronchodilators, sats are maintain don room air. Nurses voice he is quite lethargic throughout day. he is on Seroquel, Provigil and Keppra. Will decrease Seroquel. Hepas to assume care on 02/28/18 0700 03/03/18- Seen this am, he is in wrist restraints, Vss afebrile. Alert follows commands. Dc when cleared by ID and arrangements made. 03/04/17- Afebrile, VSS. Remains in wrist restraints. Alert follows simple commands. Will request ID recommendation for po antibiotics so patient can be DC to snf. Per CM notes bed available. BC in 02/27/18 NTD. 03/05/18- Seen this am he is alert wrist restrained in place. He answers appropriately denies Cp, SOB. He remains afebrile, vss. Cont IV antibiotics, Dc when cleared by ID. 03/06/18 - He is not conversive today but arousable. He remains on anticiotics per ID. Will cont to monitor and F/U databases computer consultant recommendations. 03/07/17 - Per CM he has been accepted for adm to SNF pending clearance by all services. Will cont to monitor and make nos changes here today. He is afebrile and his VS are stable and MS has improved overnight with replacement of Montemayor into bladder.
[2018-03-07] MEDS ORDERED: Pharmacy Ordered Lab Info OTHER ONE (13:45)
[2018-03-08] MEDS: Oral Hygiene Kit OROPHARYNG SCH ×4 (01:00→23:52)
--- NOTE | 2018-03-08 06:33 | XR ---
EXAM DATE: 03/08/2018 6:30 AM EST AGE/SEX: 62 years / Male INDICATIONS: Cough. CLINICAL DATA: This is the patient's subsequent encounter. Patient reports that signs and symptoms h ave been present for 1 month and indicates a pain score of Nonresponsive. MEDICAL/SURGICAL HISTORY: . Subdural hematoma. Non-responsive. COMPARISON: [facility] [place]ST 1V SINGLE AP, 03/03/2018. . FINDINGS: Portable AP views of the chest demonstrate a normal-sized cardiac silhouette. There is a small left b asilar pleural-parenchymal opacity with obscuration of the left hemidiaphragm. Right lung demonstrate s no abnormality and no pneumothorax is seen. Bones demonstrate no acute finding. CONCLUSION: Small left pleural effusion with associated atelectasis and/or airspace consolidation. These findings are similar to the prior examination. Electronically signed by: Justo Avelar MD Board Certified Radiologist 03/08/2018 6:32 AM EST
[2018-03-08] MEDS: Modafinil 200 MG Tablet PO SCH (10:00)
[2018-03-08] MEDS: levETIRAcetam 500 MG Tablet PO SCH ×2 (10:02→23:46)
[2018-03-08] MEDS: amLODIPine 10 MG Tablet PO SCH (10:03)
[2018-03-08] MEDS: QUEtiapine 25 MG Tablet PO SCH ×2 (10:03→23:46)
[2018-03-08] MEDS: Famotidine 20 MG Tablet PO SCH ×2 (10:11→23:45)
[2018-03-08] MEDS: Senna/Docusate Sodium 8.6/50 MG Tablet PO SCH ×2 (10:11→23:48)
--- NOTE | 2018-03-08 10:54 | P.PNFP ---
Subjective Interval history: He is more awake, alert and conversive today. He denies pain. Results - Labs Result diagrams: 03/07/18 08:50 03/07/18 08:50 - Imaging Impressions Chest X-Ray 03/08/18 06:00 CONCLUSION: Small left pleural effusion with associated atelectasis and/or airspace consolidation. These findings are similar to the prior examination. Physical Exam Vital signs: Vital Signs 03/07/18 12:16 03/07/18 16:09 03/07/18 21:01 Temperature 97.9 F 97.7 F 98.0 F Pulse Rate 71 69 82 Respiratory Rate 16 16 20 Blood Pressure 120/75 120/84 115/73 Pulse Oximetry 98 97 98 03/08/18 01:52 03/08/18 05:03 03/08/18 08:26 Temperature 97.7 F 97.3 F L 97.9 F Pulse Rate 82 78 83 Respiratory Rate 20 20 16 Blood Pressure 128/85 146/88 H 141/94 H Pulse Oximetry 97 99 99 Intake & Output 03/07/18 03/08/18 03/08/18 18:59 06:59 18:59 Intake Total 1500 / 1500 Output Total 425 / 425 Balance 1500 / 1500 -425 / -425 Intake: Oral 1500 / 1500 Output: Urine 425 / 425 Other: Date of Last Bowel Movement 03/06/18 03/06/18 - Constitutional no acute distress - Routine HEENT Exam Head: Present: normocephalic Eye: Present: PERRL ENT: Present: mucous membranes moist - Routine Neck Exam Present: supple - Routine Respiratory Exam Present: CTA bilaterally - Routine Cardiovascular Exam Present: RRR, S1, S2 - Routine Abdominal Exam Present: soft, normoactive bowel sounds - Routine Extremities Exam Absent: cyanosis, edema - Routine Skin Exam Present: intact - Routine Neurological Exam Present: alert, altered mental status - Detailed Neurological Exam: Coma Scale Eye Opening: To sound Verbal Response: Words Motor Response: Localizing Rani Coma Scale Total: 11 - Routine Psychiatric Exam Present: unable to assess - Urinary Catheter Management 3-way Urethral Cath placed during this visit: yes Urethral indwelling: Yes Reason for continuing: Chronic Urinary Retention Insertion date: 02/09/18 Insertion time: 16:00 Coude Cath placed during this visit: no Reason for continuing: Chronic Urinary Retention Assessment and Plan - Assessment (1) Left lower lobe pneumonia Code(s): J18.1 - Lobar pneumonia, unspecified organism Status: Acute Plan: CXR is unchanged Id following and remains afebrile (2) Severe sepsis Code(s): A41.9 - Sepsis, unspecified organism; R65.20 - Severe sepsis without septic shock Status: Acute Plan: secondary to UTI enterococcal Resolved, Id following (3) Acute subdural hematoma Code(s): S06.5X9A - Traumatic subdural hemorrhage with loss of consciousness of unspecified duration, initial encounter Status: Acute Plan: SDH r/t fall, on Keppra for seizure precautions, Cont current management anticoagulation on hold (4) Encephalopathy acute Code(s): G93.40 - Encephalopathy, unspecified Status: Acute Plan: cont to monitor, in restraints, followed by psych (5) Major neurocognitive disorder due to another medical condition Code(s): F02.80 - Dementia in other diseases classified elsewhere without behavioral disturbance Status: Acute Plan: Cont current treatment for SDH and SIRS. (6) Hematuria Code(s): R31.9 - Hematuria, unspecified Status: Acute Plan: resolved Secondary to urethral perforation Cespedes in place cont until op f/u with urology - Assessment and Plan Will monitor daily and assess response to current treatment. 02/16/18 Seen in bed, he is in wrist restraints he is oriented to self. he is reported to be impulsive, Cespedes in place, urine clear yellow. VSS afebrile. HGB is stable, BS well controlled. He is on Keppra for seizure precautions, no reported activity,Will check level. Will need placement at DC. 02/19/18-Resting in bed, he is alert but confused. With some reported agitation. He is still in restraints. VSS BS controlled. Dc planning to return to Snf when cleared by ID. 02/20/18- Found in bed, he is alert and oriented to self. Vss. He is on Ampicillin q4. Per ID noted if BC negative he can cont antibiotics x 2 weeks, which put stop date at 02/27/17. He can be Dc once arrangements made. 3008 on chart. 02/21/18 - He is much more alert than when I last saw him a week ago and is conversive. He is without complaints except he says he is "tired". Plan to cont antibiotics as ordered then for D/C to SNF when cleared. 02/22/18 - Per CM last week he has been accepted back at the SNF pending finishing IV antibiotics and clearance from ID. He is afebrile with stable VS. 02/26/17- Seen this am he is alert, non conversive. Has been febrile. Breath sounds are diminished, will get cxr, U/A. Labs today show normal white count. Cont to monitor. 02/27/17- Seen this am he is alert, non conversive. He has been febrile. Urine negative, CRX yesterday shows mild new left opacity. Id reconsulted. Cont with bronchodilators, sats are maintain don room air. Nurses voice he is quite lethargic throughout day. he is on Seroquel, Provigil and Keppra. Will decrease Seroquel. Hepas to assume care on 02/28/18 0700 03/03/18- Seen this am, he is in wrist restraints, Vss afebrile. Alert follows commands. Dc when cleared by ID and arrangements made. 03/04/17- Afebrile, VSS. Remains in wrist restraints. Alert follows simple commands. Will request ID recommendation for po antibiotics so patient can be DC to snf. Per CM notes bed available. BC in 02/27/18 NTD. 03/05/18- Seen this am he is alert wrist restrained in place. He answers appropriately denies Cp, SOB. He remains afebrile, vss. Cont IV antibiotics, Dc when cleared by ID. 03/06/18 - He is not conversive today but arousable. He remains on antibiotics per ID. Will cont to monitor and F/U underwriting consultant recommendations. 03/07/17 - Per CM he has been accepted for adm to SNF pending clearance by all services. Will cont to monitor and make nos changes here today. He is afebrile and his VS are stable and MS has improved overnight with replacement of Cespedes into bladder. 03/08/18 - He again is more alert today and answers questions haltingly with single words. He is afebrile and I believ he is nearing D/C to SNF pending ID clearance.
[2018-03-09] MEDS: Oral Hygiene Kit OROPHARYNG SCH ×3 (08:39→15:55)
[2018-03-09] MEDS: Modafinil 200 MG Tablet PO SCH (08:58)
[2018-03-09] MEDS: levETIRAcetam 500 MG Tablet PO SCH ×2 (08:58→22:54)
[2018-03-09] MEDS: amLODIPine 10 MG Tablet PO SCH (08:58)
[2018-03-09] MEDS: Famotidine 20 MG Tablet PO SCH ×2 (08:58→22:55)
[2018-03-09] MEDS: Senna/Docusate Sodium 8.6/50 MG Tablet PO SCH ×2 (08:58→22:54)
[2018-03-09] MEDS: QUEtiapine 25 MG Tablet PO SCH ×2 (08:58→22:55)
--- NOTE | 2018-03-09 11:30 | P.PNFP ---
Subjective Interval history: patients menation waxes and wanes placement efforts continue Results - Labs Result diagrams: 03/07/18 08:50 03/07/18 08:50 Physical Exam Vital signs: Vital Signs 03/08/18 11:36 03/08/18 12:00 03/08/18 16:00 Temperature 97.7 F Pulse Rate 74 73 80 Respiratory Rate 18 Blood Pressure 127/84 Pulse Oximetry 99 03/08/18 20:00 03/08/18 20:34 03/09/18 00:29 Temperature 97.7 F 97.6 F Pulse Rate 75 78 75 Respiratory Rate 18 20 20 Blood Pressure 123/82 129/79 Pulse Oximetry 98 98 03/09/18 05:45 03/09/18 08:00 Temperature 97.6 F 97.7 F Pulse Rate 73 65 Respiratory Rate 20 16 Blood Pressure 126/78 141/89 H Pulse Oximetry 100 100 Intake & Output 03/08/18 03/09/18 03/09/18 18:59 06:59 18:59 Output Total 625 / 625 Balance -625 / -625 Output: Urine 625 / 625 Other: Date of Last Bowel Movement 03/06/18 03/06/18 - Constitutional no acute distress - Routine HEENT Exam Head: Present: normocephalic Eye: Present: EOMI, PERRL ENT: Present: mucous membranes moist - Routine Neck Exam Comments: decreased rom djd - Routine Respiratory Exam Present: decreased breath sounds - Routine Cardiovascular Exam Present: RRR - Routine Abdominal Exam Present: soft, normoactive bowel sounds - Urinary Catheter Management 3-way Urethral Cath placed during this visit: yes Urethral indwelling: Yes Reason for continuing: Chronic Urinary Retention Insertion date: 02/09/18 Insertion time: 16:00 Coude Cath placed during this visit: no Reason for continuing: Chronic Urinary Retention Assessment and Plan - Assessment (1) Left lower lobe pneumonia Code(s): J18.1 - Lobar pneumonia, unspecified organism Status: Acute Plan: CXR is unchanged Id following and remains afebrile (2) Severe sepsis Code(s): A41.9 - Sepsis, unspecified organism; R65.20 - Severe sepsis without septic shock Status: Acute Plan: secondary to UTI enterococcal Resolved, Id following (3) Acute subdural hematoma Code(s): S06.5X9A - Traumatic subdural hemorrhage with loss of consciousness of unspecified duration, initial encounter Status: Acute Plan: SDH r/t fall, on Keppra for seizure precautions, Cont current management anticoagulation on hold (4) Encephalopathy acute Code(s): G93.40 - Encephalopathy, unspecified Status: Acute Plan: cont to monitor, in restraints, followed by psych (5) Major neurocognitive disorder due to another medical condition Code(s): F02.80 - Dementia in other diseases classified elsewhere without behavioral disturbance Status: Acute Plan: Cont current treatment for SDH and SIRS. (6) Hematuria Code(s): R31.9 - Hematuria, unspecified Status: Acute Plan: resolved Secondary to urethral perforation Cespedes in place cont until op f/u with urology - Assessment and Plan Will monitor daily and assess response to current treatment. 02/16/18 Seen in bed, he is in wrist restraints he is oriented to self. he is reported to be impulsive, Cespedes in place, urine clear yellow. VSS afebrile. HGB is stable, BS well controlled. He is on Keppra for seizure precautions, no reported activity,Will check level. Will need placement at DC. 02/19/18-Resting in bed, he is alert but confused. With some reported agitation. He is still in restraints. VSS BS controlled. Dc planning to return to Snf when cleared by ID. 02/20/18- Found in bed, he is alert and oriented to self. Vss. He is on Ampicillin q4. Per ID noted if BC negative he can cont antibiotics x 2 weeks, which put stop date at 02/27/17. He can be Dc once arrangements made. 3008 on chart. 02/21/18 - He is much more alert than when I last saw him a week ago and is conversive. He is without complaints except he says he is "tired". Plan to cont antibiotics as ordered then for D/C to SNF when cleared. 02/22/18 - Per CM last week he has been accepted back at the SNF pending finishing IV antibiotics and clearance from ID. He is afebrile with stable VS. 02/26/17- Seen this am he is alert, non conversive. Has been febrile. Breath sounds are diminished, will get cxr, U/A. Labs today show normal white count. Cont to monitor. 02/27/17- Seen this am he is alert, non conversive. He has been febrile. Urine negative, CRX yesterday shows mild new left opacity. Id reconsulted. Cont with bronchodilators, sats are maintain don room air. Nurses voice he is quite lethargic throughout day. he is on Seroquel, Provigil and Keppra. Will decrease Seroquel. Hepas to assume care on 02/28/18 0700 03/03/18- Seen this am, he is in wrist restraints, Vss afebrile. Alert follows commands. Dc when cleared by ID and arrangements made. 03/04/17- Afebrile, VSS. Remains in wrist restraints. Alert follows simple commands. Will request ID recommendation for po antibiotics so patient can be DC to snf. Per CM notes bed available. BC in 02/27/18 NTD. 03/05/18- Seen this am he is alert wrist restrained in place. He answers appropriately denies Cp, SOB. He remains afebrile, vss. Cont IV antibiotics, Dc when cleared by ID. 03/06/18 - He is not conversive today but arousable. He remains on antibiotics per ID. Will cont to monitor and F/U client care consultant recommendations. 03/07/17 - Per CM he has been accepted for adm to SNF pending clearance by all services. Will cont to monitor and make nos changes here today. He is afebrile and his VS are stable and MS has improved overnight with replacement of Cespedes into bladder. 03/08/18 - He again is more alert today and answers questions haltingly with single words. He is afebrile and I believ he is nearing D/C to SNF pending ID clearance. 03/09 resting quietly cxr essnl unchanged no new co reported lab stable await SNF placement
--- NOTE | 2018-03-09 19:03 | P.PNID ---
Subjective Remarks: off abx since 03/06 remains afebrile no new c/o MS fluctuates, but quite confused Antibiotics: Allergies/Adverse Reactions: Allergies codeine Allergy (Severe, Unverified 12/12/17 13:15) PASSES OUT Objective Vital Signs 03/08/18 20:00 03/08/18 20:34 03/09/18 00:29 Temperature 97.7 F 97.6 F Pulse Rate 75 78 75 Respiratory Rate 18 20 20 Blood Pressure 123/82 129/79 Pulse Oximetry 98 98 03/09/18 05:45 03/09/18 08:00 03/09/18 12:00 Temperature 97.6 F 97.7 F 97.1 F L Pulse Rate 73 65 76 Respiratory Rate 20 16 16 Blood Pressure 126/78 141/89 H 117/82 Pulse Oximetry 100 100 100 03/09/18 16:00 Temperature 97.2 F L Pulse Rate 83 Respiratory Rate 16 Blood Pressure 131/72 Pulse Oximetry 98 Intake & Output 03/09/18 03/09/18 03/10/18 06:59 18:59 06:59 Output Total 625 / 625 Balance -625 / -625 Output: Urine 625 / 625 Other: Date of Last Bowel Movement 03/06/18 Imaging: ITS Impressions Cervical Spine CT 02/09/18 20:32 CONCLUSION: 1. Negative trauma CT. Abdomen/Bladder Ultrasound 02/10/18 00:00 CONCLUSION: 1. Mild right hydronephrosis. 2. Distended urinary bladder with avascular debris along the dependent aspect. Given the clinical history this could represent blood clot. Consider follow-up to confirm resolution. There is no blood flow in this structure to suggest that it represents a mass. 3. Montemayor catheter is likely misplaced potentially in the posterior/prostatic urethra. It is not visualized within the bladder and urinary bladder is distended. Head CT 02/10/18 06:00 CONCLUSION: 1. Stable right temporal parietal subdural hematoma. 2. No new findings. . Abdomen/Pelvis CT 02/10/18 18:49 CONCLUSION: 1. Extension of Montemayor catheter outside of the urethral lumen into the left sided perineal soft tissues. Findings indicate traumatic perforation of the urethra. There is gas in the surrounding perineal soft tissues. The Montemayor catheter balloon is inflated in this region outside of the urethral lumen. 2. Distended urinary bladder. 3. Mild prominence of the proximal renal collecting systems without shanelle hydronephrosis. 4. Enlarged prostate. 5. Findings were discussed with the patient's nurse. Chest X-Ray 03/08/18 06:00 CONCLUSION: Small left pleural effusion with associated atelectasis and/or airspace consolidation. These findings are similar to the prior examination. Physical Exam: GENERAL: Awakens easily, responding, NAD SKIN: Warm and dry EYES: Pupils equal and round. No scleral icterus. No injection or drainage. ENT: No nasal bleeding or discharge. Mucous membranes pink and moist. CARDIOVASCULAR: Regular rate and rhythm. RESPIRATORY: Clear to auscultation. Breath sounds equal bilaterally. Decreased at bases GASTROINTESTINAL: Abdomen soft, non-tender, mildly distended. : montemayor in place with clear light yellow urine MUSCULOSKELETAL: Extremities without clubbing, cyanosis, or edema. NEUROLOGICAL: easily arousable, not follows not very interactive PSYCHIATRIC: unable to assess Assessment and Plan - Plan New Fever, ?new PNA S/P fall resulted in subdural hematoma BPH, urinary retention, montemayor trauma High grade enterococcal bacteremia, sepsis likley 2/2 UTI in the settings of urinary retention with BPH HIgh lactic acidosis, improved Pt is stable and improving S/P Urethral trauma with montemayor in false passage: montemayor placement corrected by urologuist LLL PNA resolved fever CR unchanged no leukocytosis Plan: fu WBC OK to dc if no fever, no leukocytosis and o/w no other ID issue geremias AYALA
[2018-03-09] MEDS: Acetaminophen 325 MG Tablet PO PRN (23:02)
[2018-03-10] MEDS: Oral Hygiene Kit OROPHARYNG SCH ×3 (04:31→15:05)
[2018-03-10] MEDS: Famotidine 20 MG Tablet PO SCH ×2 (09:29→21:54)
[2018-03-10] MEDS: amLODIPine 10 MG Tablet PO SCH (09:29)
[2018-03-10] MEDS: Modafinil 200 MG Tablet PO SCH (09:29)
[2018-03-10] MEDS: levETIRAcetam 500 MG Tablet PO SCH ×2 (09:29→21:54)
[2018-03-10] MEDS: QUEtiapine 25 MG Tablet PO SCH ×2 (09:29→21:54)
[2018-03-10] MEDS: Senna/Docusate Sodium 8.6/50 MG Tablet PO SCH ×2 (09:29→21:54)
[2018-03-10 10:31] LABS: Baso # (Auto) 0.1 th/mm3 (0.0-0.2); Baso % (Auto) 0.9 % (0.0-2.0); Eos # (Auto) 0.3 th/mm3 (0.0-0.4); Eos % (Auto) 5.2 % (0.0-4.0); Hematocrit 38.4 % (39.0-51.0); Hemoglobin 12.9 gm/dL (13.0-17.0); Lymph # (Auto) 1.3 th/mm3 (1.0-4.8); Lymph % (Auto) 21.9 % (9.0-44.0); Mean Corpuscular HGB Conc 33.6 % (32.0-36.0); Mean Corpuscular Hemoglobin 30.3 pg (27.0-34.0); Mean Corpuscular Volume 90.2 fL (80.0-100.0); Mean Platelet Volume 9.4 fL (7.0-11.0); Mono # (Auto) 0.4 th/mm3 (0.0-0.9); Mono % (Auto) 6.1 % (0.0-8.0); Neut # (Auto) 3.9 th/mm3 (1.8-7.7); Neut % (Auto) 65.9 % (16.0-70.0); Platelet Count 245 th/mm3 (150-450); Red Blood Count 4.25 mil/mm3 (4.50-5.90); Red Cell Distribution Width 14.6 % (11.6-17.2); White Blood Count 5.8 th/mm3 (4.0-11.0)
--- NOTE | 2018-03-10 11:41 | P.PNFP ---
Subjective Interval history: 03/10 vss afebrile no new co pt continues with decreased alertness will assess lab , nutrition and dc in am to snf if accepted Results - Labs Result diagrams: 03/10/18 10:02 03/07/18 08:50 Abnormal lab results 03/10/18 Range/Units 10:02 RBC 4.25 L (4.50-5.90) mil/mm3 Hgb 12.9 L (13.0-17.0) gm/dL Hct 38.4 L (39.0-51.0) % Eos % (Auto) 5.2 H (0.0-4.0) % Short CBC 03/10/18 Range/Units 10:02 WBC 5.8 (4.0-11.0) th/mm3 Hgb 12.9 L (13.0-17.0) gm/dL Hct 38.4 L (39.0-51.0) % Plt Count 245 (150-450) th/mm3 Physical Exam Vital signs: Vital Signs 03/09/18 12:00 03/09/18 16:00 03/09/18 20:00 Temperature 97.1 F L 97.2 F L Pulse Rate 76 83 81 Respiratory Rate 16 16 18 Blood Pressure 117/82 131/72 Pulse Oximetry 100 98 03/09/18 20:44 03/10/18 00:00 03/10/18 00:23 Temperature 97.3 F L 97.6 F Pulse Rate 84 85 Respiratory Rate 20 18 18 Blood Pressure 126/75 114/77 Pulse Oximetry 98 99 03/10/18 04:00 03/10/18 06:19 03/10/18 07:55 Temperature 97.6 F 97.3 F L Pulse Rate 81 80 Respiratory Rate 18 18 20 Blood Pressure 121/87 121/77 Pulse Oximetry 99 97 03/10/18 08:00 Temperature Pulse Rate 85 Respiratory Rate Blood Pressure Pulse Oximetry Intake & Output 03/09/18 03/10/18 03/10/18 18:59 06:59 18:59 Output Total 300 / 300 Balance -300 / -300 Output: Urine 300 / 300 Other: Date of Last Bowel Movement 03/06/18 03/10/18 - Urinary Catheter Management 3-way Urethral Cath placed during this visit: yes Urethral indwelling: Yes Reason for continuing: Chronic Urinary Retention Insertion date: 02/09/18 Insertion time: 16:00 Coude Cath placed during this visit: no Reason for continuing: Chronic Urinary Retention Assessment and Plan - Assessment (1) Left lower lobe pneumonia Code(s): J18.1 - Lobar pneumonia, unspecified organism Status: Acute Plan: CXR is unchanged Id following and remains afebrile (2) Severe sepsis Code(s): A41.9 - Sepsis, unspecified organism; R65.20 - Severe sepsis without septic shock Status: Acute Plan: secondary to UTI enterococcal Resolved, Id following (3) Acute subdural hematoma Code(s): S06.5X9A - Traumatic subdural hemorrhage with loss of consciousness of unspecified duration, initial encounter Status: Acute Plan: SDH r/t fall, on Keppra for seizure precautions, Cont current management anticoagulation on hold (4) Encephalopathy acute Code(s): G93.40 - Encephalopathy, unspecified Status: Acute Plan: cont to monitor, in restraints, followed by psych (5) Major neurocognitive disorder due to another medical condition Code(s): F02.80 - Dementia in other diseases classified elsewhere without behavioral disturbance Status: Acute Plan: Cont current treatment for SDH and SIRS. (6) Hematuria Code(s): R31.9 - Hematuria, unspecified Status: Acute Plan: resolved Secondary to urethral perforation Cespedes in place cont until op f/u with urology - Assessment and Plan Will monitor daily and assess response to current treatment. 02/16/18 Seen in bed, he is in wrist restraints he is oriented to self. he is reported to be impulsive, Cespedes in place, urine clear yellow. VSS afebrile. HGB is stable, BS well controlled. He is on Keppra for seizure precautions, no reported activity,Will check level. Will need placement at DC. 02/19/18-Resting in bed, he is alert but confused. With some reported agitation. He is still in restraints. VSS BS controlled. Dc planning to return to Snf when cleared by ID. 02/20/18- Found in bed, he is alert and oriented to self. Vss. He is on Ampicillin q4. Per ID noted if BC negative he can cont antibiotics x 2 weeks, which put stop date at 02/27/17. He can be Dc once arrangements made. 3008 on chart. 02/21/18 - He is much more alert than when I last saw him a week ago and is conversive. He is without complaints except he says he is "tired". Plan to cont antibiotics as ordered then for D/C to SNF when cleared. 02/22/18 - Per CM last week he has been accepted back at the SNF pending finishing IV antibiotics and clearance from ID. He is afebrile with stable VS. 02/26/17- Seen this am he is alert, non conversive. Has been febrile. Breath sounds are diminished, will get cxr, U/A. Labs today show normal white count. Cont to monitor. 02/27/17- Seen this am he is alert, non conversive. He has been febrile. Urine negative, CRX yesterday shows mild new left opacity. Id reconsulted. Cont with bronchodilators, sats are maintain don room air. Nurses voice he is quite lethargic throughout day. he is on Seroquel, Provigil and Keppra. Will decrease Seroquel. Hepas to assume care on 02/28/18 0700 03/03/18- Seen this am, he is in wrist restraints, Vss afebrile. Alert follows commands. Dc when cleared by ID and arrangements made. 03/04/17- Afebrile, VSS. Remains in wrist restraints. Alert follows simple commands. Will request ID recommendation for po antibiotics so patient can be DC to snf. Per CM notes bed available. BC in 02/27/18 NTD. 03/05/18- Seen this am he is alert wrist restrained in place. He answers appropriately denies Cp, SOB. He remains afebrile, vss. Cont IV antibiotics, Dc when cleared by ID. 03/06/18 - He is not conversive today but arousable. He remains on antibiotics per ID. Will cont to monitor and F/U supply chain consultant recommendations. 03/07/17 - Per CM he has been accepted for adm to SNF pending clearance by all services. Will cont to monitor and make nos changes here today. He is afebrile and his VS are stable and MS has improved overnight with replacement of Cespedes into bladder. 03/08/18 - He again is more alert today and answers questions haltingly with single words. He is afebrile and I believ he is nearing D/C to SNF pending ID clearance. 03/09 resting quietly cxr essnl unchanged no new co reported lab stable await SNF placement
[2018-03-10 18:09] LABS: Baso % (Auto) 0.7 % (0.0-2.0); Eos # (Auto) 0.3 th/mm3 (0.0-0.4); Eos % (Auto) 4.8 % (0.0-4.0); Hematocrit 36.5 % (39.0-51.0); Hemoglobin 12.2 gm/dL (13.0-17.0); Lymph # (Auto) 1.5 th/mm3 (1.0-4.8); Lymph % (Auto) 24.5 % (9.0-44.0); Mean Corpuscular HGB Conc 33.5 % (32.0-36.0); Mean Corpuscular Hemoglobin 30.1 pg (27.0-34.0); Mean Corpuscular Volume 89.8 fL (80.0-100.0); Mean Platelet Volume 9.2 fL (7.0-11.0); Mono # (Auto) 0.5 th/mm3 (0.0-0.9); Mono % (Auto) 8.2 % (0.0-8.0); Neut # (Auto) 3.8 th/mm3 (1.8-7.7); Neut % (Auto) 61.8 % (16.0-70.0); Platelet Count 224 th/mm3 (150-450); Red Blood Count 4.06 mil/mm3 (4.50-5.90); Red Cell Distribution Width 14.6 % (11.6-17.2); White Blood Count 6.1 th/mm3 (4.0-11.0)
[2018-03-11] MEDS: Oral Hygiene Kit OROPHARYNG SCH ×3 (02:22→11:20)
[2018-03-11 06:36] VITALS: RESP 18
[2018-03-11 07:08] VITALS: BP 122/84; TEMP 97.7; O2SAT 96
[2018-03-11] MEDS: Senna/Docusate Sodium 8.6/50 MG Tablet PO SCH (09:09)
[2018-03-11] MEDS: Modafinil 200 MG Tablet PO SCH (09:09)
[2018-03-11] MEDS: amLODIPine 10 MG Tablet PO SCH (09:10)
[2018-03-11] MEDS: Famotidine 20 MG Tablet PO SCH (09:10)
[2018-03-11] MEDS: levETIRAcetam 500 MG Tablet PO SCH (09:10)
[2018-03-11] MEDS: QUEtiapine 25 MG Tablet PO SCH (09:10)
[2018-03-11 11:27] VITALS: PULSE 84
--- NOTE | 2018-03-11 13:39 | P.DS ---
Date of admission: 02/09/18 18:13 Primary care physician: UNKNOWN Brief History from admission: 62yM transferred from [facility] for acute subdural hematoma. As per the patient's records, he is from a nursing facility and presented on 02/08 for altered mental status, subsequently developed fever, tachycardia, and leukocytosis, had a Cespedes catheter placed with balloon likely inflated in posterior urethra and developed hematuria. On 02/09, the patient attempted to get out of bed and fell on the floor, hitting his head; it is unclear in the notes whether he lost consciousness but a CTH showed a 5 mm right subdural hematoma without shift or mass effect. He had a laceration to his right upper forehead which was repaired prior to transfer. He had worsening encephalopathy and was intubated prior to transfer. DS: Diagnosis - Discharge Diagnosis (1) Left lower lobe pneumonia Status: Acute (2) Severe sepsis Status: Acute (3) Acute subdural hematoma Status: Acute (4) Encephalopathy acute Status: Acute (5) Major neurocognitive disorder due to another medical condition Status: Acute (6) Hematuria Status: Acute DS: Summary Hospital Course: 62yM transferred from [facility] for acute subdural hematoma s/p fall. He had a laceration to his right upper forehead which was repaired prior to transfer. He had worsening encephalopathy and was intubated prior to transfer. He was transferred to ICU, Cespedes catheter placed with balloon likely inflated in posterior urethra and developed hematuria [address] in ER with CBI for hematuria. Urology consulted, found to have urethral disruption with new Cespedes placed by urology on 02/11 and orders to remain in and be removed by urology after D/C. He was seen by neurosurgery with no intervention required. Blood cultures positive for gram-positive cocci 4 out of 4. ID consulted treated with Iv antibiotics He was extubated on 02/12/18, transferred to medical unit 02/14, family medicine services consulted. neuropsychic consulted for agitation requiring wrist restraints. He was started on Provigil and Seroquel. His mentation has continued to wax and wane. Blood cultures from 02/12 and 02/27 negative. He is now stable for DC and will return to snf - Time Spent with Patient Total time spent providing and/or coordinating discharge services: 40 Greater than 30 minutes - Quality: Stroke Symptom Onset Unknown: No - Quality: VTE Is this test being ordered to rule out VTE?: No Deep Vein Thrombosis/Pulmonary Embolism Present on Admission: No Exam Vital signs: Vital Signs 03/10/18 17:05 03/10/18 20:00 03/11/18 00:00 Temperature 97.8 F 97.6 F 97.4 F L Pulse Rate 81 73 86 Respiratory Rate 20 16 20 Blood Pressure 119/67 162/78 H 125/85 Pulse Oximetry 94 L 98 97 03/11/18 04:00 03/11/18 08:00 Temperature 97.7 F Pulse Rate 83 84 Respiratory Rate 18 Blood Pressure 122/84 Pulse Oximetry 96 Intake & Output 03/10/18 03/11/18 03/11/18 18:59 06:59 18:59 Output Total 400 / 400 Balance -400 / -400 Weight 59 kg Output: Urine Amount (Catheter) 400 / 400 Coude 400 / 400 Other: Date of Last Bowel Movement 03/10/18 03/10/18 Results Procedures completed during hospitalization: n/a Labs on day of discharge: Labs from last 24 hours 03/10/18 17:10 WBC 6.1 RBC 4.06 L Hgb 12.2 L Hct 36.5 L MCV 89.8 MCH 30.1 MCHC 33.5 RDW 14.6 Plt Count 224 MPV 9.2 Neut % (Auto) 61.8 Lymph % (Auto) 24.5 [place] % (Auto) 8.2 H Eos % (Auto) 4.8 H Baso % (Auto) 0.7 Neut # (Auto) 3.8 Lymph # (Auto) 1.5 [place] # (Auto) 0.5 Eos # (Auto) 0.3 Baso # (Auto) 0.0 WBC Differential . Differential Comment Auto diff final - Impressions ITS Impressions Cervical Spine CT 02/09/18 20:32 CONCLUSION: 1. Negative trauma CT. Abdomen/Bladder Ultrasound 02/10/18 00:00 CONCLUSION: 1. Mild right hydronephrosis. 2. Distended urinary bladder with avascular debris along the dependent aspect. Given the clinical history this could represent blood clot. Consider follow-up to confirm resolution. There is no blood flow in this structure to suggest that it represents a mass. 3. Cespedes catheter is likely misplaced potentially in the posterior/prostatic urethra. It is not visualized within the bladder and urinary bladder is distended. Head CT 02/10/18 06:00 CONCLUSION: 1. Stable right temporal parietal subdural hematoma. 2. No new findings. . Abdomen/Pelvis CT 02/10/18 18:49 CONCLUSION: 1. Extension of Cespedes catheter outside of the urethral lumen into the left sided perineal soft tissues. Findings indicate traumatic perforation of the urethra. There is gas in the surrounding perineal soft tissues. The Cespedes catheter balloon is inflated in this region outside of the urethral lumen. 2. Distended urinary bladder. 3. Mild prominence of the proximal renal collecting systems without shanelle hydronephrosis. 4. Enlarged prostate. 5. Findings were discussed with the patient's nurse. Chest X-Ray 03/08/18 06:00 CONCLUSION: Small left pleural effusion with associated atelectasis and/or airspace consolidation. These findings are similar to the prior examination. Discharge Plan - Discharge Disposition Patient Disposition: 03 Discharge to SNF - Discharge Condition Condition: Critical - Discharge Order Discharge Orders: Discharge Order (Routine); Ordered 03/11/18 Ordered By: Afshan Pascal ED Use Only Admit Order (Routine); Ordered 02/09/18 Ordered By: Cruz Henao - Physicians Team Primary Care Provider: UNKNOWN, Attending Provider: Ha Alfaro Other Providers: Donal Kilpatrick MD ; Alex Alcaraz MD ; Camelia Bedolla MD ; Alexsander Butler, PhD ; Ha Alfaro DO
== END 2018-03-11 15:55 | DRG 871 ==
LOC: NEPC 16:34 → NEDA 18:13 → N03 21:15 → N05 02-15 16:26
PROVIDERS: ADMIT Family Medicine; ATTEND Family Medicine
DX: Y93.89 Activity, other specified; R31.9 Hematuria, unspecified; N40.1 Benign prostatic hyperplasia with lower urinary tract symptoms; G93.40 Encephalopathy, unspecified; N13.6 Pyonephrosis; J18.1 Lobar pneumonia, unspecified organism; A63.0 Anogenital (venereal) warts; I10 Essential (primary) hypertension; G93.41 Metabolic encephalopathy; R65.20 Severe sepsis without septic shock; N36.5 Urethral false passage; Y73.1 Therapeutic (nonsurgical) and rehabilitative gastroenterology and urology devices associated with adverse incidents; Y92.238 Other place in hospital as the place of occurrence of the external cause; E87.2 Acidosis; F02.81 Dementia in other diseases classified elsewhere, unspecified severity, with behavioral disturbance; S06.5X9A Traumatic subdural hemorrhage with loss of consciousness of unspecified duration, initial encounter; J44.1 Chronic obstructive pulmonary disease with (acute) exacerbation; N28.1 Cyst of kidney, acquired; J98.11 Atelectasis; M47.9 Spondylosis, unspecified; Z88.5 Allergy status to narcotic agent; A41.81 Sepsis due to Enterococcus; J96.01 Acute respiratory failure with hypoxia; Z79.899 Other long term (current) drug therapy; S37.30XA Unspecified injury of urethra, initial encounter; R33.8 Other retention of urine; Z79.82 Long term (current) use of aspirin; R00.0 Tachycardia, unspecified; S01.81XA Laceration without foreign body of other part of head, initial encounter; F01.51 Vascular dementia, unspecified severity, with behavioral disturbance; W06.XXXA Fall from bed, initial encounter; Z91.81 History of falling; Z78.1 Physical restraint status; T83.83XA Hemorrhage due to genitourinary prosthetic devices, implants and grafts, initial encounter
CPT/HCPCS: 36430; 36600; 51702; 70450; 71010; 71045; 72125; 74176; 76775; 76937; 80048; 80053; 80202; 81001; 82140; 82565; 82805; 82947; 82948; 82962; 83605; 83735; 84100; 84132; 84145; 84300; 84520; 85025; 85027; 85610; 85730; 86850; 86900; 86901; 86923; 87040; 87077; 87086; 87149; 87186; 87205; 87641; 90715; 93308; 94002; 94003; 94150; 94640; 94656; 94657; 94664; 94665; 96125; 97110; 97127; 97162; 97167; 97530; 97532; 97535; 99291; C9238; G0515; J0290; J0692; J1953; J2543; J2704; J3010; J3370; J3411; J3475; J3480; J7030; J7040; J7050; J7070; P9016; P9047